=== PATIENT | male | born 1945 | race Caucasian/White ===

== ENCOUNTER 2020-08-20 10:14 | Outpatient (REF) | payer MEDICARE, SELFPAY ==
[2020-08-20 14:05] LABS: MANUAL DIFF FLAG NO
[2020-08-20 14:17] LABS: Eosinophils Absolute Auto 0.1 X10*3/uL (0.0-0.4); Eosinophils Percent Auto 2.9 % (0-4); Hematocrit 45.8 % (42-52); Hemoglobin 14.5 g/dl (14.0-18.0); Imm Gran Abs Auto 0.01 X10*3/uL (0.00-0.03); Imm Gran Pct Auto 0.2 % (0.0-0.4); Lymphocytes Percent Auto 22.7 % (20-40); Mean Corpuscular HGB Conc 31.7 g/dl (31.0-36.0); Mean Corpuscular Hemoglobin 26.9 pg (27.0-33.0); Mean Corpuscular Volume 84.8 fL (80-98); Mean Platelet Volume 11.6 fL (9.4-12.4); Monocytes Absolute Auto 0.5 X10*3/uL (0.1-1.2); Monocytes Percent Auto 10.8 % (2-11); Neutrophils Absolute Auto 2.6 X10*3/uL (2.0-8.3); Neutrophils Percent Auto 62.4 % (45-73); Platelet Count 182 X10*3/uL (160-400); Red Cell Distribution Width 14.1 % (11.0-16.0); White Blood Count 4.2 X10*3/uL (4.8-10.8)
[2020-08-20 14:45] LABS: Alanine Aminotransferase 33 U/L (0-40); Albumin Level 4.3 g/dL (3.5-5.0); Alkaline Phosphatase 82 U/L (39-117); Aspartate Amino Transferase 34 U/L (5-37); Bilirubin Direct 0.3 mg/dL (0.0-0.5); Bilirubin Total 0.7 mg/dL (0.0-1.0); C Reactive Protein 0.06 mg/dL (< or = 0.50); Total Protein 6.7 g/dL (6.5-8.0)
[2020-08-20 15:14] LABS: Erythrocyte Sedimentation Rate 3 MM/HR (0-15)
[2020-08-21 13:21] LABS: Transglutaminase Ab IgG 1 U/mL; Transglutaminase IgA 1 U/mL
[2020-08-21 13:41] LABS: Gliadin Deamidated IgA Ab 9 Units; Gliadin Deamidated IgG Ab 2 Units
[2020-08-21 14:07] LABS: Immunoglobulin A 169 mg/dL (70-320)
[2020-08-27 14:06] LABS: Endomysial IgA Antibody Negative (Negative)
== END 2020-08-20 10:15 | disposition home or self-care (01) ==
LOC: HO.10HDL 10:14
PROVIDERS: Absent Provider Internal Medicine; Visit Provider Internal Medicine
DX: R19.4 Change in bowel habit (principal); R19.7 Diarrhea, unspecified
CPT/HCPCS: 36415; 80076; 82784; 83516; 85025; 85652; 86140; 86255; 86256

== ENCOUNTER 2020-09-09 08:54 | Day surgery (SDC) | payer MEDICARE, SELFPAY ==
[2020-09-04 10:44] VITALS: BMI 31.4
--- NOTE | 2020-09-06 08:19 | P.CONAN_ITS ---
Documented by User: Ericka Nunez 09/06/20 08:20 HPI - Anesthesia Eval Consult details Narrative: 74yo M for Upper Endoscopy and Colonoscopy [facility] Past Medical History Medical History Depression Elevated cholesterol GERD (gastroesophageal reflux disease) History of prostate cancer History of skin cancer HTN (hypertension) Surgical History Surgical History H/O colonoscopy Social History Social History Alcohol intake: former Smoking Status: Former smoker Smoking Quit Date: >10 years Use of substances other than those prescribed or required for medical reasons: No Advance Directives Information Provided: No Meds Allergies Allergy/AdvReac Type Severity Reaction Status Date / Time Penicillins Allergy Intermediate HIVES Verified 09/09/20 10:45 peanut [PEANUT] Allergy Unknown UNKNOWN Verified 09/09/20 10:45 Home Medications Medication Instructions Recorded Confirmed Last Taken Type amlodipine 1 tab PO DAILY 09/04/20 09/04/20 Unknown History atorvastatin 1 tab PO DAILY 09/04/20 09/04/20 Unknown History clonazepam 1 tab PO BID 09/04/20 09/04/20 Unknown History escitalopram oxalate 5 mg PO DAILY 09/04/20 09/04/20 Unknown History finasteride 1 tab PO DAILY 09/04/20 09/04/20 Unknown History fluticasone propionate 1 spray INTRANASAL QAM 09/04/20 09/04/20 Unknown History loratadine 1 tab PO DAILY 09/04/20 09/04/20 Unknown History omeprazole 1 cap PO QAM 09/04/20 09/04/20 Unknown History Exam Exam Date and Time: September 06, 2020 0819 Height,Weight and Vital Signs: Height 5 ft 11 in Weight 102.058 kg Assessment and Plan Assessment Anesthesia Assessment: Chart Reviewed Documented by User: Tomasa Thompson 09/09/20 10:51 [facility] Past Medical History Medical History Depression Elevated cholesterol GERD (gastroesophageal reflux disease) History of prostate cancer History of skin cancer HTN (hypertension) Family History Family history of problems with anesthesia: No Surgical History Surgical History H/O colonoscopy History of Problems with Anesthesia: No Social History Social History Alcohol intake: former Smoking Status: Former smoker Smoking Quit Date: >10 years Use of substances other than those prescribed or required for medical reasons: No Advance Directives Information Provided: No Meds Allergies Allergy/AdvReac Type Severity Reaction Status Date / Time Penicillins Allergy Intermediate HIVES Verified 09/09/20 10:45 peanut [PEANUT] Allergy Unknown UNKNOWN Verified 09/09/20 10:45 Home Medications Medication Instructions Recorded Confirmed Last Taken Type amlodipine 1 tab PO DAILY 09/04/20 09/04/20 Unknown History atorvastatin 1 tab PO DAILY 09/04/20 09/04/20 Unknown History clonazepam 1 tab PO BID 09/04/20 09/04/20 Unknown History escitalopram oxalate 5 mg PO DAILY 09/04/20 09/04/20 Unknown History finasteride 1 tab PO DAILY 09/04/20 09/04/20 Unknown History fluticasone propionate 1 spray INTRANASAL QAM 09/04/20 09/04/20 Unknown History loratadine 1 tab PO DAILY 09/04/20 09/04/20 Unknown History omeprazole 1 cap PO QAM 09/04/20 09/04/20 Unknown History Exam Height,Weight and Vital Signs: Vital Signs Temp Pulse Resp BP Pulse Ox 09/09/20 10:20 97.3 F 79 18 137/74 96 Airway Mallampati Class: II TM Dist: >3cm Neck ROM: Full Partial: Lower Heart: RRR Lungs: CTAB Assessment and Plan Assessment Anesthesia Assessment: Anesthesia Plan Discussed and Chart Reviewed Final Anesthetic Review NPO: Yes ASA Class: II Final Preanesthetic Review: No Changes in Pt Med Stat, Meds/Allgs Chart Reviewed, Consent Obtained/Reviewed and Anes Risks/Benef Reviewed Patient Risk: Low Procedure Risk: Low Assessment/Block/Sedation in SS: Assess/Block/Sedation- Anesthetic Plan Anesthetic Plan: MAC: Disposition: Standard PACU
[2020-09-09 10:20] VITALS: BP 137/74; PULSE 79; RESP 18; TEMP 36.3; O2SAT 96
[2020-09-09] MEDS: Lactated Ringers 1,000 ML 100 ML IVCONT (10:48)
[2020-09-09 11:45] VITALS: BP 90/53; PULSE 61; RESP 14; TEMP 36.2; O2SAT 96
--- NOTE | 2020-09-09 11:47 | PM.OP ---
Brief Operative Note Date of Service: 09/09/20 Pre-op diagnosis: GERD, Diarrhea Post-op diagnosis: other (Hiatal hernia, Gastritis, Diverticulosis, Internal hemorrhoids) Procedure: EGD with biopsies, Colonoscopy to the cecum with biopsies Surgeon: Abdoulaye Ronquillo Anesthesia: MAC Was an [employer] Machine Assembler used for this Procedure?: No Estimated blood loss (mL): 4.0 Pathology: other (A. Descending duodenum B. Gastric antrum C. EG Junction at 36 cm D. Ascending colon E. Descending colon) Condition: stable Disposition: PACU
[2020-09-09 12:00] VITALS: BP 114/64; PULSE 56; RESP 16; TEMP 36.3; O2SAT 97
--- NOTE | 2020-09-09 12:13 | OP_ITS ---
SURGEON: Abdoulaye Ronquillo MD INDICATIONS: The patient presents for evaluation of gastroesophageal reflux, change in bowel habits, and diarrhea. Full consent has been obtained from him for both procedures, including risks of bleeding and perforation. PREOPERATIVE DIAGNOSIS: POSTOPERATIVE DIAGNOSIS: PROCEDURE PERFORMED: Esophagogastroduodenoscopy with biopsies, and colonoscopy to the cecum with biopsy. ESTIMATED BLOOD LOSS: COMPLICATIONS: ANESTHESIA: Monitored anesthesia care. ASSISTANTS: SPECIMENS: PREOPERATIVE DIAGNOSES: Gastroesophageal reflux, change in bowel habits, diarrhea. POSTOPERATIVE DIAGNOSES: Gastroesophageal reflux, change in bowel habits, diarrhea, hiatal hernia, gastritis, rule out celiac disease, rule out microscopic colitis, diverticulosis, and internal hemorrhoids. DESCRIPTION OF PROCEDURE: The patient was placed in the left lateral decubitus position. The Olympus video gastroscope was passed in the posterior oropharynx and upper esophagus under direct vision. The scope was passed slowly into the distal esophagus. The gastroesophageal junction appeared at 36 cm. There was some slight irregularity consistent with reflux and possibly small areas of Carter's mucosa. There was no esophagitis nor any lesions. There was a small to moderate-sized hiatal hernia. The scope was advanced to pylorus and duodenum was cannulated to the descending portion. The duodenum including the bulb appeared normal without mass or ulceration. Biopsies were obtained at the 2nd and 3rd portions of duodenum. The scope was withdrawn back in the stomach. The gastric antrum had some mild areas of gastritis in the pre-pyloric antrum. Biopsies were obtained. There was good peristalsis. There were no erosions or ulceration. The scope was retroflexed visualizing the proximal stomach carefully, which appeared normal, without any sign of mass or ulceration. The scope was straightened out and withdrawn back into the esophagus. The hiatal hernia mucosa appeared normal. Biopsies were obtained at the EG junction at 36 cm. Proximal to this, the esophageal mucosa appeared normal. The scope was withdrawn from the patient. He was turned around for colonoscopy. The digital rectal exam revealed no abnormalities. The Olympus video pediatric colonoscope was entered into the rectum and advanced easily to the cecum. Once in the cecum, I did identify normal-appearing cecal pouch with appendiceal orifice and a normal-appearing ileocecal valve. There was transillumination of light deep in the right lower quadrant. The entire cecum and ileocecal valve appeared normal. The scope was slowly withdrawn assessing all mucosal surfaces carefully. Preparation was excellent. I did not visualize any sign of polyps, colitis, nor angiodysplasia. Biopsies were obtained in the ascending and descending colon. There was a mild amount of sigmoid diverticulosis. In the rectum, scope was retroflexed visualizing some internal hemorrhoids as well as some scattered telangiectasias in the distal rectum consistent with his previous radiation treatments. The scope was straightened out and withdrawn from the patient. He tolerated the procedure well and was returned to the recovery area in stable condition. IMPRESSION: 1. Hiatal hernia, gastroesophageal reflux, rule out Carter's esophagus. 2. Mild gastritis. 3. Rule out celiac disease. 4. Rule out microscopic colitis. 5. Diverticulosis. 6. Internal hemorrhoids. 7. Changes of radiation treatment in distal rectum with associated telangiectasias. PLAN: The results of the biopsies will be checked. He will continue his omeprazole 40 mg daily as that is working better for him than the previous 20 mg dose. He was advised not to use any aspirin and NSAIDs for at least a week. He was advised to use Imodium on a p.r.n. basis for any loose stool. He will see me over the summer for a followup visit. MD MARY Coles/JAN / [id number] MTDD
== END 2020-09-09 12:55 | disposition home or self-care (01) ==
PROVIDERS: PCP Internal Medicine; Visit Provider Internal Medicine
PROC: (CPT 45380; principal; 2020-09-09 10:10)
DX: R19.4 Change in bowel habit (principal); R19.7 Diarrhea, unspecified; K57.30 Diverticulosis of large intestine without perforation or abscess without bleeding; K64.8 Other hemorrhoids; K62.7 Radiation proctitis; K21.9 Gastro-esophageal reflux disease without esophagitis; K29.70 Gastritis, unspecified, without bleeding; K22.70 Barrett's esophagus without dysplasia; K44.9 Diaphragmatic hernia without obstruction or gangrene; I10 Essential (primary) hypertension; Z79.899 Other long term (current) drug therapy; Z85.46 Personal history of malignant neoplasm of prostate; Z85.828 Personal history of other malignant neoplasm of skin; Z92.3 Personal history of irradiation; Z87.891 Personal history of nicotine dependence
CPT/HCPCS: 45380; 43239; 88305; 88342

== ENCOUNTER 2022-04-28 08:34 | Outpatient (REF) | payer MEDICARE, SELFPAY ==
[2022-04-28 08:49] LABS: MANUAL DIFF FLAG NO
[2022-04-28 08:53] LABS: Basophils Absolute Auto 0.1 X10*3/uL (0.0-0.2); Basophils Percent Auto 0.9 % (0-2); Eosinophils Absolute Auto 0.1 X10*3/uL (0.0-0.4); Eosinophils Percent Auto 2.5 % (0-4); Hematocrit 44.6 % (42.0-52.0); Hemoglobin 14.3 g/dl (14.0-18.0); Imm Gran Abs Auto 0.02 X10*3/uL (0.00-0.03); Imm Gran Pct Auto 0.4 % (0.0-0.4); Lymphocytes Absolute Auto 1.4 X10*3/uL (1.2-4.9); Lymphocytes Percent Auto 25.7 % (20-40); Mean Corpuscular HGB Conc 32.1 g/dl (31.0-36.0); Mean Corpuscular Hemoglobin 26.8 pg (27.0-33.0); Mean Corpuscular Volume 83.7 fL (80.0-98.0); Mean Platelet Volume 9.8 fL (9.4-12.4); Monocytes Absolute Auto 0.6 X10*3/uL (0.1-1.2); Monocytes Percent Auto 10.2 % (2-11); Neutrophils Absolute Auto 3.4 x10*3/uL (2.0-8.3); Neutrophils Percent Auto 60.3 % (45-73); Platelet Count 193 X10*3/uL (160-400); Red Blood Count 5.33 X10*6/uL (4.60-5.80); White Blood Count 5.6 X10*3/uL (4.8-10.8)
[2022-04-28 09:37] LABS: Alanine Aminotransferase 45 U/L (0-40); Alkaline Phosphatase 82 U/L (39-117); Anion Gap 8 (12-20); Aspartate Amino Transferase 36 U/L (5-37); Bilirubin Total 0.7 mg/dL (0.0-1.0); Blood Urea Nitrogen 19 mg/dL (9-16); Calcium 9.4 mg/dL (8.4-10.2); Carbon Dioxide 27 mmol/L (22-29); Chloride 109 mmol/L (96-108); Cholesterol 164 mg/dL; Estimated Glomerular Filt Rate 55; Glucose Random 105 mg/dL (60-115); HDL Cholesterol 42 mg/dL; LDL Cholesterol Calculated 99 mg/dl; Potassium 4.2 mmol/L (3.3-5.1); Sodium 140 mmol/L (135-145); Total Protein 6.3 g/dL (6.5-8.0); Triglycerides 117 mg/dL
[2022-04-28 09:54] LABS: Free T4 (Free Thyroxine) 1.05 ng/dL (0.71-1.85); PSA,Total (Free>4and<10) 1.56 ng/mL (0.00-4.00); Thyroid Stimulating Hormone 3.76 uIU/mL (0.32-4.0)
[2022-04-28 10:07] LABS: Vitamin B12 576 pg/mL (200-900)
== END 2022-04-28 08:35 | disposition home or self-care (01) ==
LOC: HO.LAB 08:34
PROVIDERS: PCP Internal Medicine; Visit Provider Internal Medicine
DX: E78.00 Pure hypercholesterolemia, unspecified (principal); K22.70 Barrett's esophagus without dysplasia; R79.89 Other specified abnormal findings of blood chemistry; Z12.5 Encounter for screening for malignant neoplasm of prostate; Z85.46 Personal history of malignant neoplasm of prostate
CPT/HCPCS: 36415; 80053; 80061; 82607; 82746; 84153; 84439; 84443; 85025

== ENCOUNTER 2022-04-30 09:58 | Outpatient (REF) | payer MEDICARE, SELFPAY ==
[2022-04-30 11:01] LABS: Alanine Aminotransferase 42 U/L (0-40); Albumin Level 4.3 g/dL (3.5-5.0); Alkaline Phosphatase 86 U/L (39-117); Aspartate Amino Transferase 33 U/L (5-37); Bilirubin Direct 0.3 mg/dL (0.0-0.5); Bilirubin Total 0.7 mg/dL (0.0-1.0); Total Protein 6.8 g/dL (6.5-8.0)
[2022-05-01 09:36] LABS: HBc Num1 3.01 S/CO (0.00-0.79); HBsAGNum1 0.32 S/CO (0.00-0.99); Hepatitis B Surface Antigen Negative (Negative); ~HepC Num1 0.14 S/CO (0.00-0.79); ~Hepatitis B Surface Antibody REACTIVE (Nonreactive); ~Hepatitis C Antibody Nonreactive (Nonreactive)
[2022-05-01 13:36] LABS: HBc Num2 3.04 S/CO; HBc Num3 2.83 S/CO
[2022-05-01 13:37] LABS: Hepatitis B Core Antibody Reactive (Nonreactive)
[2022-05-02 20:54] LABS: Hepatitis B Core Antibody IgM NON-REACTIVE (NON-REACTIVE)
== END 2022-04-30 09:59 | disposition home or self-care (01) ==
LOC: HO.LAB 09:58
PROVIDERS: PCP Internal Medicine; Visit Provider Internal Medicine
DX: R79.89 Other specified abnormal findings of blood chemistry (principal)
CPT/HCPCS: 36415; 80076; 86704; 86705; 86706; 86803; 87340

== ENCOUNTER 2022-05-14 08:57 | Outpatient (REF) | payer MEDICARE, SELFPAY ==
--- NOTE | ~2022-05-14 | US_ITS ---
EXAMINATION: US ABDOMEN LIMITED CLINICAL INFORMATION: Other specified abnormal findings of blood chemistry. COMPARISON: None TECHNIQUE: Real-time imaging of the right upper quadrant abdominal viscera. Technically extremely limited study secondary to body habitus. FINDINGS: PANCREAS: Normal. LIVER: Normal. The liver is normal in size. The liver contour is normal. Parenchymal echogenicity is normal. No focal hepatic lesion. There is no intrahepatic biliary duct dilatation seen. GALLBLADDER: Normal. The gallbladder is physiologically distended without evidence of stones, sludge, polyps, wall thickening or pericholecystic fluid. COMMON BILE DUCT: Poorly visualized due to body habitus. The estimated caliber is 5 mm. RIGHT KIDNEY: Normal. No hydronephrosis. No renal calculi or focal parenchymal lesions. The kidney measures 10.2 cm in maximum dimension. FREE FLUID: None. US/US abdomen limited IMPRESSION: Unremarkable examination, technically limited as detailed.
== END 2022-05-14 08:58 | disposition home or self-care (01) ==
LOC: HO.US 08:57
PROVIDERS: PCP Internal Medicine; Visit Provider Internal Medicine
DX: R79.89 Other specified abnormal findings of blood chemistry (principal); R74.01 Elevation of levels of liver transaminase levels
CPT/HCPCS: 76705

== ENCOUNTER 2022-06-30 15:33 | Outpatient (REF) | payer MEDICARE, SELFPAY ==
[2022-06-30 16:41] LABS: Estimated Average Glucose 126 mg/dL
[2022-06-30 17:02] LABS: Anion Gap 16 (12-20); Blood Urea Nitrogen 25 mg/dL (9-16); Calcium 8.9 mg/dL (8.4-10.2); Carbon Dioxide 23 mmol/L (22-29); Chloride 108 mmol/L (96-108); Estimated Glomerular Filt Rate 56; Glucose Random 102 mg/dL (60-115); Potassium 4.5 mmol/L (3.3-5.1); Sodium 142 mmol/L (135-145)
== END 2022-06-30 15:34 | disposition home or self-care (01) ==
LOC: HO.LAB 15:33
PROVIDERS: PCP Internal Medicine; Visit Provider Internal Medicine
DX: R73.02 Impaired glucose tolerance (oral) (principal); I10 Essential (primary) hypertension
CPT/HCPCS: 36415; 80048; 83036

== ENCOUNTER 2022-11-09 10:17 | Outpatient (AMB) | payer MEDICARE, SELFPAY ==
[2022-11-09 10:19] VITALS: BP 136/80; PULSE 88; O2SAT 96; BMI 32.1
--- NOTE | 2022-11-09 10:19 | AM.OFFVISMDC ---
Intake Vital Signs 11/09/22 10:19 Height 5 ft 11 in Weight 230 lb BMI 32.1 BP 136/80 Blood Pressure Location Lt brachial Position Sitting Pulse 88 Pulse Source Pulse Oximeter Temp Source Skin Pulse Oximetry (%) 96 Oxygen Delivery Method Room Air Intake Visit Reasons: [facility] Intake Note: Patient is here for an Annual Wellness Visit. Location And Measurement Technician Required: No Allergies Penicillins Allergy (Intermediate, Verified 11/09/22 10:19) HIVES peanut [PEANUT] Allergy (Unknown, Verified 11/09/22 10:19) UNKNOWN Medication List - Last Reconciled 11/09/22 by Joanne Bejarano MD amlodipine 5 mg PO DAILY antiarthritic combination no.2 (glucosamine-chondroitin) mg PO atorvastatin 20 mg PO DAILY buspirone 5 mg PO DAILY clonazepam 1 mg PO DAILY PRN dextroamphetamine-amphetamine 5 mg ER (Adderall XR) 5 mg PO DAILY escitalopram oxalate 5 mg PO BID finasteride 1 tab PO DAILY fluticasone propionate 50 mcg/actuation 1 spray intranasal QAM gabapentin 300 mg PO BID lisinopril 5 mg PO DAILY 90 days loratadine 1 tab PO DAILY lysine (L-Lysine) 500 mg PO DAILY omeprazole 1 cap PO QAM Fall Risk Assessment Fall risk assessment: No Falls in past year Date Fall Risk Assessed: 11/09/22 HPI [facility] HPI Details 77-year-old obese male with impaired glucose tolerance generalized anxiety disorder hypercholesterolemia Carter's esophagus hypertension last seen in June 2022. Patient is here for an and will well visit. Colonoscopy is up-to-date August 2020. states moving BM a lot- states-having bowel movemement [facility] Medical History (Updated 11/09/22 @ 11:11 by Joanne Bejarano MD) Depression Elevated cholesterol GERD (gastroesophageal reflux disease) History of prostate cancer History of skin cancer HTN (hypertension) Surgical History H/O colonoscopy History of cataract surgery Family History (Updated 07/02/22 @ 15:06 by Kavita Joseph CMA) Mother No problems noted. Father Tuberculosis Brother No problems noted. Sister No problems noted. Son No problems noted. Son No problems noted. Social History (Updated 10/31/21 @ 11:43 by Joanne Bejarano MD) Housing: House Alcohol intake: former Patient Tobacco Use Status: Former Tobacco user Tobacco use type: Cigarette Years Smoked: quit 1999 e-Cigarette/Vaping Use: Never Used Second Hand Smoke Exposure: No Current occupational status: retired Cognitive needs: No Hearing needs: No Vision needs: Yes Questionnaire Medicare Wellness Checkup What [age] your age?: 70-79 (77) What gender do you identify with?: male During the past 4 weeks, how much have you been bothered by emotional problems such as feeling anxious, depressed, irritable, sad or downhearted, and blue?: moderately (anxious ) During the past 4 weeks, has your physical & emotional health limited your social activities with family, friends, neighbors, or groups?: not at all During the past 4 weeks, how much bodily pain have you generally had?: no pain During the past 4 weeks, was someone available to help you if you needed & wanted help?: yes, as much as I wanted During the past 4 weeks, what was the hardest physical activity you could do for at least 2 minutes?: heavy Can you get to places out of walking distance without help? (For eg., can you travel alone on buses, taxis or drive your car?): Yes Can you go shopping for groceries or clothes without someone's help?: Yes Can you prepare your own meals?: Yes Can you do your housework without help?: Yes Because of any health problems, do you need the help of another person with your personal care needs such as eating, bathing, dressing or getting around the house?: No Can you handle your own money without help?: Yes During the past 4 weeks, how would you rate your health in general?: good During the past 4 weeks how have things been going for you?: good & bad parts about equal Are you having difficulties driving your car?: no Do you always fasten your seat belt when you are in a car?: yes, usually During past 4 weeks, have you been bothered by the following: never: Falling or dizzy when standing up, Sexual problems?, Trouble eating well?, Teeth or denture problems? and Problems using the telephone? and sometimes: Tiredness or fatigue? Have you fallen 2 or more times in the past year?: No Are you afraid of falling?: No Are you a smoker?: no During the past 4 weeks, how many drinks of wine, beer, or other alcoholic beverages did you have?: no alcohol at all Do you exercise for about 20 minutes 3 or more times a week?: yes, most of the time Have you been given information to help with the following?: no: Hazards in your house that might hurt you? and no: Keeping track of your medications? How often do you have trouble taking medicines the way you have been told to take them?: I always take medicine as prescribed How confident are you that you can control & manage most of your health problems?: somewhat confident What is your race?: White PHQ-9 Over the last 2 weeks, how often have you been bothered by any of the following problems? 1. Little interest or pleasure in doing things: not at all 2. Feeling down, depressed, or hopeless: several days 3. Trouble falling or staying asleep, or sleeping too much: several days 4. Feeling tired or having little energy: several days 5. Poor appetite or overeating: several days 6. Feeling bad about yourself - or that you are a failure or have let yourself or your family down: several days 7. Trouble concentrating on things, such as reading the newspaper or watching television: several days 8. Moving or speaking so slowly that other people could have noticed. Or the opposite - being so fidgety or restless that you have been moving around a lot more than usual: not at all 9. Thoughts that you would be better off or of hurting yourself in some way: not at all Total score: 6 Depression Screening Interpretation: Positive Source: Developed by Drs. Abdoulaye White, Mone Robles, Rico Holguin and colleagues, with an educational rasta from [employer]. RONNIE-7 AMB Questionnaire RONNIE-7 Date RONNIE - 7 assessed: 11/09/22 Feeling nervous, anxious, or on edge: 1 = Several days Not being able to stop or control worryin = Several days Worrying too much about different things: 1 = Several days Trouble relaxin = Several days Being so restless that it is hard to sit still: 1 = Several days Becoming easily annoyed or irritable: 1 = Several days Feeling afraid as if something awful might happen: 1 = Several days Total RONNIE-7 score (0-4 normal; 5-9 mild; 10-14 moderate; 15-21 severe): 7 Source: Developed by Drs. Abdoulaye White, Mone Robles, Rico Holguin and colleagues, with an educational rasta from [employer]. AUDIT C Alcohol Use Questionnaire (AUDIT-C) 1. How often do you have a drink containing alcohol?: Never 3. How often do you have six or more drinks on one occasion?: Never Total Score: 0 Thrive Questionnaire Date Thrive assessed: 05/04/22 Review of Systems Const Denies poor appetite and Denies weakness Eyes Denies no additional complaints ENT Reports Normal hearing present, Denies dizziness, Denies nasal congestion, Denies tinnitus and Denies sore throat Card Denies chest pain, Denies syncope, Denies rapid heart rate and Denies dyspnea Resp Denies cough and Denies dyspnea GI Denies change in stool character, Reports constipation, Denies diarrhea, Denies nausea and Denies vomiting Denies dysuria and Denies urinary frequency Neuro Reports Normal hearing present, Denies confusion, Denies dizziness, Denies syncope and Denies weakness Psych Denies confusion Physical Exam Vital Signs: Last Vital Signs Pulse 88 11/09/22 10:19 BP 136/80 11/09/22 10:19 Pulse Ox 96 11/09/22 10:19 Oxygen Delivery Method Room Air 11/09/22 10:19 BMI result Body Mass Index 32.1 Const General: No confusion Orientation/consciousness: No confusion HEENT Head: Yes normocephalic Ears: external ears normal and TM's normal bilaterally Face and sinus: Yes normal facial exam Mouth: moist mucous membranes Throat: Yes tonsils normal Eyes Conjunctivae: conjunctivae normal Pupils: Equal, round and reactive pupils present and Pupil accommodation reflex normal Direct Ophthalmoscopy: normal light reflex Neck Neck: No lymphadenopathy Thyroid: Thyroid normal Chest Chest palpation & inspection: normal inspection of the chest Resp Effort & Inspection: normal respiratory effort and no audible wheezes Auscultation: clear to auscultation bilaterally, no crackles, no wheezes and lung sounds not diminished Cardio Rate: regular rate Rhythm: regular rhythm Peripheral pulses: radial pulses present and dorsalis pedis present GI Other: decline rectal exam Palpation (GI): no masses Auscultation: normal bowel sounds and normoactive bowel sounds Rectal Exam - Male: Yes deferred Skin General skin exam: no rashes or lesions noted Rashes: no rashes Neuro General: No confusion Cranial nerves: Yes Equal, round and reactive pupils present and Yes Normal hearing present Cognition (Neuro): normal cognition Gait exam (Neuro): Normal gait present Motor exam (neuro): 5/5 motor strength present throughout Deep tendon reflexes (DTR's): Right brachioradialis reflex intensity grade: 2+, Left brachioradialis reflex intensity grade: 2+, Right patellar reflex intensity grade: 2+ and Left patellar reflex intensity grade: 2+ Extrem General: No edema Assessment & Plan Assessment & Plan (1) Medicare annual wellness visit, subsequent: Code(s): Z00.00 - Encounter for general adult medical examination without abnormal findings (2) Elevated cholesterol: Code(s): E78.00 - Pure hypercholesterolemia, unspecified Plan: Avoid fried foods, chicken skin, eggs, butter margarine, pastries and meat. Be it pork or beef they have a lot of cholesterol LDL goal of less than 130 patient is on atorvastatin 20 mg once a day (3) Barretts esophagus: Code(s): K22.70 - 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 Plan: Avoid the foods that causes that usually spicy foods, tomato products, juices, coffee, soda and foods that your sensitive to. After eating do not lie down, allow 3-4 hours before in lie down. And keep the head of bed above 30 degrees to avoid the acid from going up. Patient is on omeprazole (4) Hypertension: Code(s): I10 - Essential (primary) hypertension Plan: Continue with blood pressure medication. Decrease salt intake and exercise patient is on lisinopril 5 mg once a day amlodipine 5 mg once a day (5) Generalized anxiety disorder: Comment: Mariposa Hooker Code(s): F41.1 - Generalized anxiety disorder Plan: Continue with counseling and therapy (6) History of prostate cancer: Comment: 2016-w/radiation, Dr. Varela Code(s): Z85.46 - Personal history of malignant neoplasm of prostate Plan: Continue with finasteride follow-up with urology (7) Impaired glucose tolerance: Code(s): R73.02 - Impaired glucose tolerance (oral) Plan: Decrease the amount of carbohydrate intake, pasta, bread, rice and potatoes are all sugar and that is aside from all the sweet stuff, remember that fruits are good but they are Sweet also. (8) Recent change in frequency of bowel movements: Code(s): R19.4 - Change in bowel habit (9) Low back pain: Code(s): M54.50 - Low back pain, unspecified Orders: Referrals Gastroenterology Referral R19.4 - Change in bowel habit Medications: New prednisone 4 tabs QD x 2 days then 3 tabs QD x 2 days then 2 tabs Qd x 2 days then 1 tab QD x 2 days PO daily; 20 tabs 0RF J45.909 - Unspecified asthma, uncomplicated, M54.50 - Low back pain, unspecified Quality Reporting (2019) Fall Risk Screening ([facility] 139) Last assessed Fall Risk: 11/09/22 Fall risk assessment: No Falls in past year Depression/Bipolar (159/160/161/177) PHQ-9: Total score: 6 Coding Level of Care Code Medicare Subsequent (G0439) Diagnoses Medicare annual wellness visit, subsequent Z00.00 Elevated cholesterol E78.00 Barretts esophagus K22.70 Hypertension I10 Generalized anxiety disorder F41.1 History of prostate cancer Z85.46 Impaired glucose tolerance R73.02 Recent change in frequency of bowel movements R19.4 Low back pain M54.50
== END 2022-11-09 11:26 | disposition home or self-care (01) ==
PROVIDERS: Visit Provider Internal Medicine
DX: Z00.00 Encounter for general adult medical examination without abnormal findings (principal); I10 Essential (primary) hypertension; K22.70 Barrett's esophagus without dysplasia; Z85.46 Personal history of malignant neoplasm of prostate; E78.00 Pure hypercholesterolemia, unspecified; F41.1 Generalized anxiety disorder; R73.02 Impaired glucose tolerance (oral); R19.4 Change in bowel habit; M54.50 Low back pain, unspecified
CPT/HCPCS: G0439

== ENCOUNTER 2023-05-17 10:35 | Outpatient (AMB) | payer MEDICARE, SELFPAY ==
[2023-05-17 10:36] VITALS: BP 138/70; PULSE 97; O2SAT 97; BMI 32.5
--- NOTE | 2023-05-17 10:37 | A.OFFPC_ITS ---
Vital Signs 05/17/23 10:36 Height 5 ft 11 in Weight 233 lb BMI 32.5 BP 138/70 Blood Pressure Location Lt brachial Position Sitting Pulse 97 Pulse Source Pulse Oximeter Pulse Oximetry (%) 97 Oxygen Delivery Method Room Air Intake Visit Reasons: Hypertension Pharmaceutical Scientist Required: No Allergies Penicillins Allergy (Intermediate, Verified 05/17/23 10:36) HIVES peanut [PEANUT] Allergy (Unknown, Verified 05/17/23 10:36) UNKNOWN Tobacco use date assessed: 05/17/23 Fall risk assessment: No Falls in past year Last assessed Fall Risk: 05/17/23 Dental Screening Dental Screen Date: 05/17/23 HPI Hypertension HPI Details 77-year-old obese male with hypercholest erolemia Carter's esophagus hypertension generalized anxiety disorder history of prostate cancer impaired glucose tolerance last seen in October 2022 colonoscopy is up-to-date August 2020 received lab works from August 2021 showing a normal hemoglobin A1c TSH urinalysis blood count mildly elevated blood sugar normal renal function normal electrolytes liver function with an LDL of [address] [facility] [address] Malik ARANA L knee injection [facility] Medical History (Updated 05/17/23 @ 11:10 by Joanne Bejarano MD) GERD (gastroesophageal reflux disease) History of skin cancer Depression Elevated cholesterol HTN (hypertension) History of prostate cancer Surgical History H/O colonoscopy History of cataract surgery Family History (Updated 07/02/22 @ 15:06 by Kavita Joseph CMA) Mother No problems noted. Father Tuberculosis Brother No problems noted. Sister No problems noted. Son No problems noted. Son No problems noted. Social History (Updated 10/31/21 @ 11:43 by Joanne Bejarano MD) Housing: House Alcohol intake: former Patient Tobacco Use Status: Former Tobacco user Tobacco use type: Cigarette Years Smoked: quit 1999 e-Cigarette/Vaping Use: Never Used Second Hand Smoke Exposure: No Current occupational status: retired Cognitive needs: No Hearing needs: No Vision needs: Yes Questionnaire Thrive Questionnaire Date Thrive assessed: 05/17/23 AUDIT C Alcohol Use Questionnaire (AUDIT-C) 1. How often do you have a drink containing alcohol?: Never 3. How often do you have six or more drinks on one occasion?: Never Total Score: 0 RONNIE-7 AMB Questionnaire RONNIE-7 Date RONNIE - 7 assessed: 11/09/22 Source: Developed by DrsIsabell White, Mone Robles, Rico Holguin and colleagues, with an educational rasta from [employer]. Physical exam (Primary Care) Vital Signs: Last Vital Signs Pulse 97 05/17/23 10:36 BP 138/70 05/17/23 10:36 Pulse Ox 97 05/17/23 10:36 Oxygen Delivery Method Room Air 05/17/23 10:36 BMI result Body Mass Index 32.5 Tobacco/Smoking Status: Tobacco use Status Tobacco use date assessed 05/17/23 05/17/23 10:42 Patient Tobacco Use Status Former Tobacco user 05/17/23 10:42 Tobacco use type Cigarette 05/17/23 10:42 e-Cigarette/Vaping Use Never Used 05/17/23 10:42 Thrive Assessment: Date of Thrive Assessment Date Thrive assessed 05/17/23 05/17/23 10:42 Const General: alert; No acute distress Eyes Conjunctivae: conjunctivae normal Resp Auscultation: clear to auscultation bilaterally Cardio Rate: regular rate Rhythm: regular rhythm GI Inspection: Yes normal to inspection Extrem General: Yes normal to inspection and No edema Assessment and Plan Assessment & Plan (1) Hypertension: Code(s): I10 - Essential (primary) hypertension Plan: Continue with blood pressure medication. Decrease salt intake and exercise patient takes amlodipine 5 mg once a day lisinopril 5 mg once a day (2) Barretts esophagus: Code(s): K22.70 - 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 Plan: Avoid the foods that causes that usually spicy foods, tomato products, juices, coffee, soda and foods that your sensitive to. After eating do not lie down, allow 3-4 hours before in lie down. And keep the head of bed above 30 degrees to avoid the acid from going up. On omeprazole 20 mg once a day EGD 05/2023 Dr. Gonzalez (3) Elevated cholesterol: Code(s): E78.00 - Pure hypercholesterolemia, unspecified Plan: Avoid fried foods, chicken skin, eggs, butter margarine, pastries and meat. Be it pork or beef they have a lot of cholesterol LDL goal of less than 130 and triglyceride of less than 150. Patient on atorvastatin 20 mg once a day (4) Generalized anxiety disorder: Comment: Mariposa Hooker Code(s): F41.1 - Generalized anxiety disorder Plan: Continue with counseling and therapy (5) History of prostate cancer: Comment: 2016-w/radiation, Dr. Varela Code(s): Z85.46 - Personal history of malignant neoplasm of prostate Plan: Patient follows up with urology on finasteride (6) Impaired glucose tolerance: Code(s): R73.02 - Impaired glucose tolerance (oral) Plan: Decrease the amount of carbohydrate intake, pasta, bread, rice and potatoes are all sugar and that is aside from all the sweet stuff, remember that fruits are good but they are Sweet also. (7) Post-nasal drip: Code(s): R09.82 - Postnasal drip (8) Left knee pain: Code(s): M25.562 - Pain in left knee Plan: seeing YASMEEN had injections done gel shots. Orders: Orders Complete Blood Count Auto Diff Today K22.70 - 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 Comprehensive Met. Panel Today K22.70 - 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 Free T4 (Free Thyroxine) Today K22.70 - 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 Lipid Panel Today E78.00 - Pure hypercholesterolemia, unspecified, K22.70 - 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 Hemoglobin A1c Today H61.23 - Impacted cerumen, bilateral Thyroid Stimulating Hormone Today K22.70 - 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 Vitamin B12 and Folate Today K22.70 - 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 Coding Level of Care Code Est Pt Level 4 (27371) Diagnoses Hypertension I10 Barretts esophagus K22.70 Elevated cholesterol E78.00 Generalized anxiety disorder F41.1 History of prostate cancer Z85.46 Impaired glucose tolerance R73.02 Post-nasal drip R09.82 Left knee pain M25.562
== END 2023-05-17 11:23 | disposition home or self-care (01) ==
PROVIDERS: PCP Internal Medicine; Visit Provider Internal Medicine
DX: I10 Essential (primary) hypertension (principal); K22.70 Barrett's esophagus without dysplasia; E78.00 Pure hypercholesterolemia, unspecified; F41.1 Generalized anxiety disorder; Z85.46 Personal history of malignant neoplasm of prostate; R73.02 Impaired glucose tolerance (oral); R09.82 Postnasal drip; M25.562 Pain in left knee
CPT/HCPCS: 99214

== ENCOUNTER 2023-05-18 11:37 | Outpatient (REF) | payer MEDICARE, SELFPAY ==
[2023-05-18 12:26] LABS: MANUAL DIFF FLAG NO
[2023-05-18 12:31] LABS: Basophils Percent Auto 0.6 % (0-2); Eosinophils Absolute Auto 0.2 X10*3/uL (0.0-0.4); Eosinophils Percent Auto 3.3 % (0-4); Hematocrit 44.5 % (42.0-52.0); Hemoglobin 14.3 g/dl (14.0-18.0); Imm Gran Abs Auto 0.02 X10*3/uL (0.00-0.03); Imm Gran Pct Auto 0.4 % (0.0-0.4); Lymphocytes Absolute Auto 1.1 X10*3/uL (1.2-4.9); Lymphocytes Percent Auto 23.7 % (20-40); Mean Corpuscular HGB Conc 32.1 g/dl (31.0-36.0); Monocytes Absolute Auto 0.6 X10*3/uL (0.1-1.2); Monocytes Percent Auto 12.9 % (2-11); Neutrophils Absolute Auto 2.9 x10*3/uL (2.0-8.3); Neutrophils Percent Auto 59.1 % (45-73); Platelet Count 170 X10*3/uL (160-400); White Blood Count 4.8 X10*3/uL (4.8-10.8)
[2023-05-18 12:41] LABS: Estimated Average Glucose 120 mg/dL; Hemoglobin A1c % 5.8 % (<6.0)
[2023-05-18 13:36] LABS: Alanine Aminotransferase 25 U/L (0-40); Alkaline Phosphatase 77 U/L (39-117); Anion Gap 12 (12-20); Aspartate Amino Transferase 27 U/L (5-37); Bilirubin Total 0.7 mg/dL (0.0-1.0); Blood Urea Nitrogen 24 mg/dL (9-16); Calcium 10.1 mg/dL (8.4-10.2); Carbon Dioxide 26 mmol/L (22-29); Chloride 108 mmol/L (96-108); Cholesterol 159 mg/dL (<200); Estimated Glomerular Filt Rate 52; Glucose Random 103 mg/dL (60-115); HDL Cholesterol 44 mg/dL (>40); LDL Cholesterol Calculated 95 mg/dL (<100); Potassium 4.5 mmol/L (3.3-5.1); Sodium 141 mmol/L (135-145); Total Protein 6.9 g/dL (6.5-8.0); Triglycerides 102 mg/dL (<150)
[2023-05-18 13:51] LABS: Free T4 (Free Thyroxine) 0.99 ng/dL (0.71-1.85); Thyroid Stimulating Hormone 2.25 uIU/mL (0.32-4.0)
[2023-05-18 14:12] LABS: Folate 10.5 ng/mL (> or = 4.0); Vitamin B12 521 pg/mL (200-900)
== END 2023-05-18 11:38 | disposition home or self-care (01) ==
LOC: HO.LAB 11:37
PROVIDERS: PCP Internal Medicine; Visit Provider Internal Medicine
DX: K22.70 Barrett's esophagus without dysplasia (principal); H61.23 Impacted cerumen, bilateral; E78.00 Pure hypercholesterolemia, unspecified
CPT/HCPCS: 36415; 80053; 80061; 82607; 82746; 83036; 84439; 84443; 85025

== ENCOUNTER 2023-06-21 10:07 | Day surgery (SDC) | payer MEDICARE, SELFPAY ==
--- NOTE | 2023-06-18 10:33 | P.CONAN_ITS ---
Documented by User: Ericka Nunez NP 06/18/23 10:33 HPI - Anesthesia Eval Consult details Narrative: 77yo M for Upper Endoscopy PMF Active Problems Active Problems: All Active Problems (Updated 05/17/23 @ 11:10 by Joanne Bejarano MD) Left knee pain (Acute) Post-nasal drip (Acute) Low back pain (Acute) Recent change in frequency of bowel movements (Acute) Medicare annual wellness visit, subsequent (Acute) LFT elevation (Acute) Impaired glucose tolerance (Acute) Impacted cerumen of both ears (Acute) Medicare annual wellness visit, initial (Acute) Knee osteoarthritis (Acute) History of prostate cancer (Acute) Generalized anxiety disorder (Acute) Elevated cholesterol (Acute) Barretts esophagus (Acute) GERD (gastroesophageal reflux disease) (Acute) Hypertension (Acute) Past Medical History Medical History (Updated 05/17/23 @ 11:10 by Joanne Bejarano MD) GERD (gastroesophageal reflux disease) History of skin cancer Depression Elevated cholesterol HTN (hypertension) History of prostate cancer Family History Family History (Updated 07/02/22 @ 15:06 by Kavita Joseph [facility]) Mother No problems noted. Father Tuberculosis Brother No problems noted. Sister No problems noted. Son No problems noted. Son No problems noted. Family history of problems with anesthesia: No Surgical History Surgical History H/O colonoscopy History of cataract surgery History of Problems with Anesthesia: No Social History Social History (Updated 10/31/21 @ 11:43 by Joanne Bejarano MD) Housing: House Alcohol intake: former Patient Tobacco Use Status: Former Tobacco user Tobacco use type: Cigarette Years Smoked: quit 1999 e-Cigarette/Vaping Use: Never Used Second Hand Smoke Exposure: No Are you DNR?: No Advance Directives: No Advance Directives Information Provided: Yes Nutrition Risks: No Nutritional Risk Current occupational status: retired Cognitive needs: No Hearing needs: No Vision needs: Yes Meds Allergies Allergy/AdvReac Type Severity Reaction Status Date / Time Penicillins Allergy Intermediate HIVES Verified 05/17/23 10:36 peanut [PEANUT] Allergy Unknown UNKNOWN Verified 05/17/23 10:36 Home Medications Medication Instructions Recorded Confirmed Last Taken Type finasteride 5 mg tablet 1 tab PO DAILY 09/04/20 05/17/23 Unknown History fluticasone propionate 50 1 spray intranasal QAM 09/04/20 05/17/23 Unknown History mcg/actuation nasal spray,suspension loratadine 10 mg tablet 1 tab PO DAILY 09/04/20 05/17/23 Unknown History omeprazole 40 mg capsule,delayed 1 cap PO QAM 09/04/20 05/17/23 Unknown History release escitalopram oxalate 5 mg tablet 5 mg PO BID 07/29/21 05/17/23 Unknown History gabapentin 300 mg capsule 300 mg PO BID 07/29/21 05/17/23 Unknown History lysine 500 mg tablet (L-Lysine) 500 mg PO DAILY 07/29/21 05/17/23 Unknown History amlodipine 5 mg tablet 5 mg PO DAILY 10/31/21 06/21/23 06/21/23 History clonazepam 1 mg tablet 1 mg PO DAILY PRN anxiety 10/31/21 05/17/23 Unknown History atorvastatin 20 mg tablet 20 mg PO DAILY 05/04/22 05/17/23 Unknown History antiarthritic combination no.2 900 mg PO 11/09/22 05/17/23 Unknown History mg tablet (glucosamine-chondroitin) Assessment and Plan Assessment Anesthesia Assessment: Chart Reviewed Final Anesthetic Review Family History of Problems with Anesthesia: No History of Problems with Anesthesia: No Documented by User: Jose Sommer MD 06/21/23 10:42 [facility] Past Medical History Medical History (Updated 05/17/23 @ 11:10 by Joanne Bejarano MD) GERD (gastroesophageal reflux disease) History of skin cancer Depression Elevated cholesterol HTN (hypertension) History of prostate cancer Family History Family History (Updated 07/02/22 @ 15:06 by Kavita Joseph CMA) Mother No problems noted. Father Tuberculosis Brother No problems noted. Sister No problems noted. Son No problems noted. Son No problems noted. Surgical History Surgical History H/O colonoscopy History of cataract surgery History of Problems with Anesthesia: No Social History Social History (Updated 10/31/21 @ 11:43 by Joanne Bejarano MD) Housing: House Alcohol intake: former Patient Tobacco Use Status: Former Tobacco user Tobacco use type: Cigarette Years Smoked: quit 1999 e-Cigarette/Vaping Use: Never Used Second Hand Smoke Exposure: No Are you DNR?: No Advance Directives: No Advance Directives Information Provided: Yes Nutrition Risks: No Nutritional Risk Current occupational status: retired Cognitive needs: No Hearing needs: No Vision needs: Yes Meds Allergies Allergy/AdvReac Type Severity Reaction Status Date / Time Penicillins Allergy Intermediate HIVES Verified 05/17/23 10:36 peanut [PEANUT] Allergy Unknown UNKNOWN Verified 05/17/23 10:36 Home Medications Medication Instructions Recorded Confirmed Last Taken Type finasteride 5 mg tablet 1 tab PO DAILY 09/04/20 05/17/23 Unknown History fluticasone propionate 50 1 spray intranasal QAM 09/04/20 05/17/23 Unknown History mcg/actuation nasal spray,suspension loratadine 10 mg tablet 1 tab PO DAILY 09/04/20 05/17/23 Unknown History omeprazole 40 mg capsule,delayed 1 cap PO QAM 09/04/20 05/17/23 Unknown History release escitalopram oxalate 5 mg tablet 5 mg PO BID 07/29/21 05/17/23 Unknown History gabapentin 300 mg capsule 300 mg PO BID 07/29/21 05/17/23 Unknown History lysine 500 mg tablet (L-Lysine) 500 mg PO DAILY 07/29/21 05/17/23 Unknown History amlodipine 5 mg tablet 5 mg PO DAILY 10/31/21 06/21/23 06/21/23 History clonazepam 1 mg tablet 1 mg PO DAILY PRN anxiety 10/31/21 05/17/23 Unknown History atorvastatin 20 mg tablet 20 mg PO DAILY 05/04/22 05/17/23 Unknown History antiarthritic combination no.2 900 mg PO 11/09/22 05/17/23 Unknown History mg tablet (glucosamine-chondroitin) Exam Airway Mallampati Class: II TM Dist: >3cm Partial: Lower Loose/Missing/Broken Teeth: No Heart: rrr Lungs: cta b/l Assessment and Plan Assessment Anesthesia Assessment: Anesthesia Plan Discussed Final Anesthetic Review History of Problems with Anesthesia: No NPO: Yes ASA Class: II and III Final Preanesthetic Review: No Changes in Pt Med Stat, Meds/Allgs Chart Reviewed, Consent Obtained/Reviewed and Anes Risks/Benef Reviewed Patient Risk: Intermediate Procedure Risk: Intermediate Anesthetic Plan Anesthetic Plan: MAC: Disposition: Standard PACU
[2023-06-21 10:16] VITALS: BMI 32.8
[2023-06-21] MEDS: Lactated Ringers 1,000 ML 100 ML IVCONT (10:25)
[2023-06-21 10:37] VITALS: BP 157/94; PULSE 83; RESP 18; TEMP 36.6; O2SAT 96
[2023-06-21 11:06] VITALS: BP 117/68; PULSE 74; RESP 14; TEMP 36.3; O2SAT 99
--- NOTE | 2023-06-21 11:07 | PM.OP ---
Brief Operative Note Date of Service: 06/21/23 Pre-op diagnosis: Carter's Post-op diagnosis: other (Same, Hiatal hernia, Gastritis) Procedure: EGD with biopsies Surgeon: Abdoulaye Ronquillo MD Anesthesia: MAC Was an [employer] Wire[employer] used for this Procedure?: No Estimated blood loss (mL): 2.0 Pathology: other (A. EG Junction at 33cm B. Gastric antrum) Condition: stable Disposition: PACU
[2023-06-21 11:21] VITALS: BP 131/75; PULSE 72; RESP 18; TEMP 36.6; O2SAT 96
--- NOTE | 2023-06-21 14:39 | OP_ITS ---
DATE OF SERVICE: 06/21/2023 SURGEON: Abdoulaye Ronquillo MD INDICATIONS: The patient presents for evaluation of chronic gastroesophageal reflux and history of Carter's esophagus. Full consent was obtained from him for this, including risks of bleeding and perforation. PREOPERATIVE DIAGNOSIS: POSTOPERATIVE DIAGNOSIS: PROCEDURE PERFORMED: Esophagogastroduodenoscopy with biopsies. ESTIMATED BLOOD LOSS: COMPLICATIONS: ANESTHESIA: Monitored anesthesia care. ASSISTANTS: SPECIMENS: PREOPERATIVE DIAGNOSES: Gastroesophageal reflux and history of Carter's esophagus. POSTOPERATIVE DIAGNOSES: Gastroesophageal reflux, history of Carter's esophagus, hiatal hernia, and mild erosive gastritis. DESCRIPTION OF PROCEDURE: The patient was placed in the left lateral decubitus position. The Olympus video gastroscope was passed in the posterior oropharynx and upper esophagus under direct vision. The scope was passed slowly to the distal esophagus. The gastroesophageal junction appeared at 34 cm. This area had some slight areas of irregularity consistent with reflux and probable small, less than 1 cm areas of Carter's mucosa. There was no gross evidence of any lesions nor esophagitis. The scope entered the stomach. There was a moderate-sized hiatal hernia. The scope was advanced to the pylorus and the duodenum was cannulated to the descending portion. The duodenum including the bulb appeared normal without mass or ulceration. The scope was withdrawn back in the stomach. The gastric antrum had some areas of less than 10 mm erosions with some surrounding edema, but no ulceration nor mass. There was good peristalsis. Biopsies were obtained from the antrum. The scope was retroflexed visualizing the proximal stomach carefully, which appeared normal, without any sign of mass or ulceration. Scope was straightened and withdrawn back to the esophagus. Biopsies were obtained at the EG junction at 34 cm. Proximal to this, the esophageal mucosa appeared normal. The scope was withdrawn from the patient. He tolerated the procedure well and was returned to the recovery area in stable condition. IMPRESSION: 1. Hiatal hernia. 2. Gastroesophageal reflux, rule out Carter's esophagus. 3. Mild erosive gastritis. PLAN: The results of the biopsies will be checked. At this point, he is doing well on his omeprazole. He reports that he has been using either 20 or 40 mg depending upon his symptoms. I did advise him to let me know if he needs refills on either 1 of those. I did advise him not to use any aspirin or NSAIDs for least 1 week. If H pylori is present in the gastric biopsies and he is otherwise asymptomatic, then we could probably hold off on treating that. I would recommend a repeat upper endoscopy in 3 years for further surveillance. He will otherwise see me on a p.r.n. basis. This has been discussed with his significant other. MD MARY Coles/JAN / [id number] MTDD
== END 2023-06-21 11:52 | disposition home or self-care (01) ==
PROVIDERS: PCP Internal Medicine; Visit Provider Internal Medicine
PROC: 0DJ08ZZ Inspection of Upper Intestinal Tract, Via Natural or Artificial Opening Endoscopic (ICD-10-PCS; CPT 43235; principal; 2023-06-21 11:00)
DX: K22.70 Barrett's esophagus without dysplasia (principal); K21.9 Gastro-esophageal reflux disease without esophagitis; K29.60 Other gastritis without bleeding; K44.9 Diaphragmatic hernia without obstruction or gangrene; I10 Essential (primary) hypertension; E78.5 Hyperlipidemia, unspecified; F32.A Depression, unspecified; Z85.46 Personal history of malignant neoplasm of prostate; Z92.3 Personal history of irradiation; Z85.828 Personal history of other malignant neoplasm of skin; Z79.899 Other long term (current) drug therapy; Z88.0 Allergy status to penicillin; Z87.891 Personal history of nicotine dependence
CPT/HCPCS: 43239; 88305; 88313; 88342; J2704

== ENCOUNTER 2023-11-04 11:26 | Outpatient (REF) | payer MEDICARE, SELFPAY ==
[2023-11-04 11:45] LABS: MANUAL DIFF FLAG NO
[2023-11-04 12:15] LABS: Basophils Absolute Auto 0.1 X10*3/uL (0.0-0.2); Eosinophils Absolute Auto 0.2 X10*3/uL (0.0-0.4); Eosinophils Percent Auto 4.4 % (0-4); Hematocrit 43.9 % (42.0-52.0); Imm Gran Abs Auto 0.02 X10*3/uL (0.00-0.03); Imm Gran Pct Auto 0.4 % (0.0-0.4); Lymphocytes Absolute Auto 1.2 X10*3/uL (1.2-4.9); Lymphocytes Percent Auto 23.2 % (20-40); Mean Corpuscular HGB Conc 31.9 g/dl (31.0-36.0); Mean Corpuscular Hemoglobin 26.9 pg (27.0-33.0); Mean Corpuscular Volume 84.4 fL (80.0-98.0); Mean Platelet Volume 10.9 fL (9.4-12.4); Monocytes Absolute Auto 0.5 X10*3/uL (0.1-1.2); Monocytes Percent Auto 9.1 % (2-11); Neutrophils Absolute Auto 3.2 x10*3/uL (2.0-8.3); Neutrophils Percent Auto 61.9 % (45-73); Platelet Count 187 X10*3/uL (160-400); Red Cell Distribution Width 14.3 % (11.0-16.0); White Blood Count 5.2 X10*3/uL (4.8-10.8)
[2023-11-04 12:22] LABS: Estimated Average Glucose 123 mg/dL; Hemoglobin A1C 151.9225 umol/L; Hemoglobin A1c % 5.9 % (<6.0)
[2023-11-04 12:50] LABS: Alanine Aminotransferase 22 U/L (0-40); Alkaline Phosphatase 81 U/L (39-117); Anion Gap 9 (12-20); Aspartate Amino Transferase 22 U/L (5-37); Bilirubin Total 0.6 mg/dL (0.0-1.0); Blood Urea Nitrogen 26 mg/dL (9-16); Calcium 9.8 mg/dL (8.4-10.2); Carbon Dioxide 25 mmol/L (22-29); Chloride 111 mmol/L (96-108); Cholesterol 148 mg/dL (<200); Estimated Glomerular Filt Rate 47; Glucose Random 107 mg/dL (60-115); HDL Cholesterol 38 mg/dL (>40); LDL Cholesterol Calculated 94 mg/dL (<100); Potassium 4.4 mmol/L (3.3-5.1); Sodium 141 mmol/L (135-145); Total Protein 6.6 g/dL (6.5-8.0); Triglycerides 83 mg/dL (<150)
[2023-11-04 13:05] LABS: Free T4 (Free Thyroxine) 1.16 ng/dL (0.71-1.85); Thyroid Stimulating Hormone 1.92 uIU/mL (0.32-4.0)
== END 2023-11-04 11:27 | disposition home or self-care (01) ==
LOC: HO.LAB 11:26
PROVIDERS: PCP Internal Medicine; Visit Provider Internal Medicine
DX: E78.00 Pure hypercholesterolemia, unspecified (principal); R73.02 Impaired glucose tolerance (oral); Z85.46 Personal history of malignant neoplasm of prostate; Z12.5 Encounter for screening for malignant neoplasm of prostate
CPT/HCPCS: 36415; 80053; 80061; 83036; 84153; 84439; 84443; 85025

== ENCOUNTER 2023-11-15 10:15 | Outpatient (AMB) | payer MEDICARE, SELFPAY ==
[2023-11-15 10:16] VITALS: BP 144/80; PULSE 89; O2SAT 95; BMI 33.2
--- NOTE | 2023-11-15 10:16 | AM.OFFVISMDC ---
Intake Vital Signs 11/15/23 10:16 11/15/23 10:47 Height 5 ft 11 in Weight 238 lb 0.3 oz BMI 33.2 BP 144/80 H 138/80 Blood Pressure Location Lt brachial Lt brachial Position Sitting Sitting Pulse 89 Pulse Source Pulse Oximeter Pulse Oximetry (%) 95 Oxygen Delivery Method Room Air Intake Visit Reasons: V G0439 Intake Note: Patient is here for an Annual Wellness Visit. Prevention Rn Required: No Allergies Penicillins Allergy (Intermediate, Verified 11/15/23 10:17) HIVES peanut [PEANUT] Allergy (Unknown, Verified 11/15/23 10:17) UNKNOWN Medication List - Last Reconciled 11/15/23 by Joanne Bejarano MD amlodipine 5 mg PO DAILY antiarthritic combination no.2 (glucosamine-chondroitin) mg PO atorvastatin 40 mg PO .Qod buspirone 10 mg PO TID clonazepam 1 mg PO DAILY PRN dextroamphetamine-amphetamine 10 mg ER (Adderall XR) 10 mg PO DAILY escitalopram oxalate (Lexapro) 5 mg PO BID finasteride 1 tab PO DAILY fluticasone propionate 50 mcg/actuation 1 spray intranasal QAM gabapentin 300 mg PO BID ibuprofen 400 mg PO .QD lisinopril 10 mg PO DAILY loratadine 1 tab PO DAILY lysine (L-Lysine) 500 mg PO DAILY omeprazole 1 cap PO QAM HPI V G0439 HPI Details 78-year-old obese male with hypertension Barretts esophagus hypercholesterolemia generalized anxiety disorder history of prostate cancer impaired glucose tolerance last seen in April 2023. Patient is colonoscopy last done in August 2020. Recently had the EGD done May 2023 on omeprazole advised repeat endoscopy in 3 years. Noted ortho note April 2023 for the back and lower extremity pain diagnosis lumbar spondylosis muscle relaxant prescribe naproxen and gabapentin . cough for a few months , occ sob, no fevers,no sore throat PFSH Medical History (Updated 11/15/23 @ 19:59 by Joanne Bejarano MD) Impacted cerumen of both ears Recent change in frequency of bowel movements Left knee pain Post-nasal drip Low back pain GERD (gastroesophageal reflux disease) History of skin cancer Depression Elevated cholesterol HTN (hypertension) History of prostate cancer Surgical History History of cataract surgery H/O colonoscopy Family History (Updated 07/02/22 @ 15:06 by Kavita Joseph CMA) Mother No problems noted. Father Tuberculosis Brother No problems noted. Sister No problems noted. Son No problems noted. Son No problems noted. Social History (Updated 10/31/21 @ 11:43 by Joanne Bejarano MD) Housing: House Alcohol intake: former Patient Tobacco Use Status: Former Tobacco user Tobacco use type: Cigarette Years Smoked: quit 1999 e-Cigarette/Vaping Use: Never Used Second Hand Smoke Exposure: No Current occupational status: retired Cognitive needs: No Hearing needs: No Vision needs: Yes Questionnaire Medicare Wellness Checkup What [age]?: 70-79 (77) What gender do you identify with?: male During the past 4 weeks, how much have you been bothered by emotional problems such as feeling anxious, depressed, irritable, sad or downhearted, and blue?: quite a bit During the past 4 weeks, has your physical & emotional health limited your social activities with family, friends, neighbors, or groups?: not at all During the past 4 weeks, how much bodily pain have you generally had?: moderate pain During the past 4 weeks, was someone available to help you if you needed & wanted help?: yes, as much as I wanted During the past 4 weeks, what was the hardest physical activity you could do for at least 2 minutes?: heavy Can you get to places out of walking distance without help? (For eg., can you travel alone on buses, taxis or drive your car?): Yes Can you go shopping for groceries or clothes without someone's help?: Yes Can you prepare your own meals?: Yes Can you do your housework without help?: Yes Because of any health problems, do you need the help of another person with your personal care needs such as eating, bathing, dressing or getting around the house?: No Can you handle your own money without help?: Yes During the past 4 weeks, how would you rate your health in general?: good During the past 4 weeks how have things been going for you?: pretty well Are you having difficulties driving your car?: no Do you always fasten your seat belt when you are in a car?: yes, usually During past 4 weeks, have you been bothered by the following: never: Trouble eating well?, Teeth or denture problems? and Problems using the telephone? and seldom: Falling or dizzy when standing up, Sexual problems? and Tiredness or fatigue? Have you fallen 2 or more times in the past year?: No Are you afraid of falling?: No Are you a smoker?: no During the past 4 weeks, how many drinks of wine, beer, or other alcoholic beverages did you have?: no alcohol at all Do you exercise for about 20 minutes 3 or more times a week?: yes, most of the time Have you been given information to help with the following?: no: Hazards in your house that might hurt you? and no: Keeping track of your medications? How often do you have trouble taking medicines the way you have been told to take them?: I always take medicine as prescribed How confident are you that you can control & manage most of your health problems?: somewhat confident What is your race?: White PHQ-9 Over the last 2 weeks, how often have you been bothered by any of the following problems? 1. Little interest or pleasure in doing things: not at all 2. Feeling down, depressed, or hopeless: several days 3. Trouble falling or staying asleep, or sleeping too much: several days 4. Feeling tired or having little energy: not at all 5. Poor appetite or overeating: several days 6. Feeling bad about yourself - or that you are a failure or have let yourself or your family down: several days 7. Trouble concentrating on things, such as reading the newspaper or watching television: several days 8. Moving or speaking so slowly that other people could have noticed. Or the opposite - being so fidgety or restless that you have been moving around a lot more than usual: not at all 9. Thoughts that you would be better off or of hurting yourself in some way: not at all Total score: 5 Depression Screening Interpretation: Positive Depression Screening Done: Yes 06003 - PHQ-9 Billing: Yes Source: Developed by Drs. Abdoulaye White, Mone Robles, Rico Holguin and colleagues, with an educational rasta from [employer]. Review of Systems Const Denies poor appetite and Denies weakness Eyes Denies no additional complaints ENT Reports Normal hearing present, Denies dizziness, Denies nasal congestion, Denies tinnitus and Denies sore throat Card Denies chest pain, Denies syncope, Denies rapid heart rate and Denies dyspnea Resp Denies cough and Denies dyspnea GI Denies change in stool character, Reports constipation, Denies diarrhea, Denies nausea and Denies vomiting Denies dysuria and Denies urinary frequency Neuro Reports Normal hearing present, Denies confusion, Denies dizziness, Denies syncope and Denies weakness Psych Denies confusion Physical Exam Vital Signs: Last Vital Signs Pulse 89 11/15/23 10:16 BP 138/80 11/15/23 10:47 Pulse Ox 95 11/15/23 10:16 Oxygen Delivery Method Room Air 11/15/23 10:16 BMI result Body Mass Index 33.2 Const General: No confusion Orientation/consciousness: No confusion HEENT Head: Yes normocephalic Ears: external ears normal and TM's normal bilaterally Face and sinus: Yes normal facial exam Mouth: moist mucous membranes Throat: Yes tonsils normal Eyes Conjunctivae: conjunctivae normal Pupils: Equal, round and reactive pupils present and Pupil accommodation reflex normal Direct Ophthalmoscopy: normal light reflex Neck Neck: No lymphadenopathy Thyroid: Thyroid normal Chest Chest palpation & inspection: normal inspection of the chest Resp Effort & Inspection: normal respiratory effort and no audible wheezes Auscultation: clear to auscultation bilaterally, no crackles, no wheezes and lung sounds not diminished Cardio Rate: regular rate Rhythm: regular rhythm Peripheral pulses: radial pulses present and dorsalis pedis present GI Other: decline Palpation (GI): no masses Auscultation: normal bowel sounds and normoactive bowel sounds Male General Exam: Yes normal external exam Skin General skin exam: no rashes or lesions noted Rashes: no rashes Neuro General: No confusion Cranial nerves: Yes Equal, round and reactive pupils present and Yes Normal hearing present Cognition (Neuro): normal cognition Gait exam (Neuro): Normal gait present Motor exam (neuro): 5/5 motor strength present throughout Deep tendon reflexes (DTR's): Right brachioradialis reflex intensity grade: 2+, Left brachioradialis reflex intensity grade: 2+, Right patellar reflex intensity grade: 2+ and Left patellar reflex intensity grade: 2+ Extrem Other: left leg swelling General: No edema Assessment & Plan Assessment & Plan (1) Medicare annual wellness visit, subsequent: Code(s): Z00.00 - Encounter for general adult medical examination without abnormal findings Plan: Patient is advised to eat healthy, keep well hydrated, keep active and have adequate sleep. (2) Lumbar spondylosis: Code(s): M47.816 - Spondylosis without myelopathy or radiculopathy, lumbar region Plan: Patient has seen ortho and was advised muscle relaxants and anti-inflammatory but concerns about renal function (3) Impaired glucose tolerance: Code(s): R73.02 - Impaired glucose tolerance (oral) Plan: Decrease the amount of carbohydrate intake, pasta, bread, rice and potatoes are all sugar and that is aside from all the sweet stuff, remember that fruits are good but they are Sweet also. (4) Fatty liver: Code(s): K76.0 - Fatty (change of) liver, not elsewhere classified Plan: Low-fat diet and exercise (5) History of prostate cancer: Comment: 2016-w/radiation, Dr. Varela Code(s): Z85.46 - Personal history of malignant neoplasm of prostate Plan: Continue to follow-up with urology and patient is on finasteride (6) Barretts esophagus: Comment: EGD May 2023 3 years Code(s): K22.70 - 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 Qualifiers: Carter's esophagus type: without dysplasia Qualified Code(s): K22.70 - 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 Plan: Avoid the foods that causes that usually spicy foods, tomato products, juices, coffee, soda and foods that your sensitive to. After eating do not lie down, allow 3-4 hours before in lie down. And keep the head of bed above 30 degrees to avoid the acid from going up. On omeprazole patient has seen gastroenterology and recently EGD done (7) Hypertension: Code(s): I10 - Essential (primary) hypertension Qualifiers: Hypertension type: primary hypertension Qualified Code(s): I10 - Essential (primary) hypertension Plan: Continue with blood pressure medication. Decrease salt intake and exercise takes amlodipine 5 mg once a day lisinopril 5 mg once a day (8) Elevated cholesterol: Code(s): E78.00 - Pure hypercholesterolemia, unspecified Plan: Avoid fried foods, chicken skin, eggs, butter margarine, pastries and meat. Be it pork or beef they have a lot of cholesterol LDL goal of less than 130 and triglyceride of less than 150 on atorvastatin 20 mg once a day (9) Generalized anxiety disorder: Comment: Mariposa Hooker Code(s): F41.1 - Generalized anxiety disorder Plan: Continue with buspirone , Lexapro and clonazepam (10) Renal insufficiency: Code(s): N28.9 - Disorder of kidney and ureter, unspecified Plan: Discussed concerns about NSAIDs will need to refrain from using this. And keeping well hydrated (11) ADHD (attention deficit hyperactivity disorder): Code(s): F90.9 - Attention-deficit hyperactivity disorder, unspecified type Plan: continue with counselling and therapy (12) Cough: Code(s): R05.9 - Cough, unspecified Qualifiers: Cough type: subacute Qualified Code(s): R05.2 - Subacute cough Plan: advised to take allergy med for 1 month (13) Left leg swelling: Code(s): M79.89 - Other specified soft tissue disorders Plan: US leg requested (14) Obesity (BMI 30-39.9): Code(s): E66.9 - Obesity, unspecified Plan: Diet and exercise Orders: Orders XR chest 2V Today R05.9 - Cough, unspecified PFT pulmonary function test Today R05.9 - Cough, unspecified US venous duplex LE LT Today M79.89 - Other specified soft tissue disorders Comprehensive Met. Panel Today N28.9 - Disorder of kidney and ureter, unspecified Medications: New semaglutide (weight loss) (Wegovy) administer weeks 1 through 4 of therapy 0.25 mg (0.5 mL) subcut QWEEK 2 mL 1RF E66.9 - Obesity, unspecified Quality Reporting (2019) Depression/Bipolar (159/160/161/177) PHQ-9: Total score: 5 Coding Level of Care Code Medicare Subsequent (G0439) Diagnoses Medicare annual wellness visit, subsequent Z00.00 Lumbar spondylosis M47.816 Impaired glucose tolerance R73.02 Fatty liver K76.0 History of prostate cancer Z85.46 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 K22.70 Carter's esophagus type: without dysplasia Primary hypertension I10 Hypertension type: primary hypertension Elevated cholesterol E78.00 Generalized anxiety disorder F41.1 Renal insufficiency N28.9 ADHD (attention deficit hyperactivity disorder) F90.9 Subacute cough R05.2 Cough type: subacute Left leg swelling M79.89 Obesity (BMI 30-39.9) E66.9
[2023-11-15 10:47] VITALS: BP 138/80
== END 2023-11-15 11:28 | disposition home or self-care (01) ==
PROVIDERS: PCP Internal Medicine; Visit Provider Internal Medicine
DX: Z00.00 Encounter for general adult medical examination without abnormal findings (principal); M47.816 Spondylosis without myelopathy or radiculopathy, lumbar region; R73.02 Impaired glucose tolerance (oral); K76.0 Fatty (change of) liver, not elsewhere classified; Z85.46 Personal history of malignant neoplasm of prostate; K22.70 Barrett's esophagus without dysplasia; I10 Essential (primary) hypertension; E78.00 Pure hypercholesterolemia, unspecified; F41.1 Generalized anxiety disorder; N28.9 Disorder of kidney and ureter, unspecified; F90.9 Attention-deficit hyperactivity disorder, unspecified type; R05.2 Subacute cough; M79.89 Other specified soft tissue disorders; E66.9 Obesity, unspecified
CPT/HCPCS: G0439

== ENCOUNTER 2023-11-15 15:03 | Outpatient (REF) | payer MEDICARE, SELFPAY ==
--- NOTE | ~2023-11-15 | US_ITS ---
EXAMINATION: LEFT LOWER EXTREMITY DEEP VENOUS ULTRASOUND CLINICAL INFORMATION: Left leg pain. COMPARISON: None. TECHNIQUE: Duplex Doppler imaging with compression maneuvers were performed of the left lower extremity deep venous system. FINDINGS: The visualized common femoral, femoral and popliteal veins demonstrate normal compressibility and color flow without evidence of venous thrombosis. Visualized portions of the calf veins demonstrate normal color fill-in suggesting patency. There is no evidence of a Wing's cyst. US/US venous duplex LE LT IMPRESSION: No evidence of deep venous thrombosis involving the left lower extremity.
--- NOTE | ~2023-11-15 | XR_ITS ---
EXAMINATION: XR CHEST 2 VIEWS CLINICAL INFORMATION: Cough. COMPARISON: None. TECHNIQUE: Frontal and lateral views of the chest were obtained. FINDINGS: The heart, great vessels, pulmonary vasculature and mediastinum are normal. There is atherosclerotic calcification and tortuosity of the thoracic aorta. The lungs show no focal infiltrate, effusion or pneumothorax. There is no acute osseous abnormality. There is multi-level thoracic spondylosis. XR/XR chest 2V IMPRESSION: No active cardiopulmonary disease.
[2023-11-15 17:03] LABS: Alanine Aminotransferase 26 U/L (0-40); Albumin Level 4.2 g/dL (3.5-5.0); Alkaline Phosphatase 86 U/L (39-117); Anion Gap 14 (12-20); Aspartate Amino Transferase 27 U/L (5-37); Bilirubin Total 0.6 mg/dL (0.0-1.0); Blood Urea Nitrogen 22 mg/dL (9-16); Calcium 9.7 mg/dL (8.4-10.2); Carbon Dioxide 27 mmol/L (22-29); Chloride 107 mmol/L (96-108); Estimated Glomerular Filt Rate 46; Glucose Random 93 mg/dL (60-115); Potassium 4.7 mmol/L (3.3-5.1); Sodium 143 mmol/L (135-145)
== END 2023-11-15 15:04 | disposition home or self-care (01) ==
LOC: HO.US 15:03
PROVIDERS: PCP Internal Medicine; Visit Provider Internal Medicine
DX: R05.9 Cough, unspecified (principal); N28.9 Disorder of kidney and ureter, unspecified; M79.605 Pain in left leg; M79.89 Other specified soft tissue disorders
CPT/HCPCS: 36415; 71046; 80053; 93971

== ENCOUNTER 2024-03-16 13:52 | Outpatient (AMB) | payer MEDICARE, SELFPAY ==
[2024-03-16 14:06] VITALS: BP 122/80; PULSE 67; O2SAT 98; BMI 33.0
--- NOTE | 2024-03-16 14:06 | MHC.PC.OV ---
Vital Signs 03/16/24 14:06 Height 5 ft 11 in Weight 236 lb 8 oz BMI 33.0 BP 122/80 Blood Pressure Location Lt brachial Position Sitting Pulse 67 Pulse Source Pulse Oximeter Pulse Oximetry (%) 98 Oxygen Delivery Method Room Air Intake Visit Reasons: IGT, Cough Service Girl Required: No Accompanied by: Self / Same As Patient Allergies Penicillins Allergy (Intermediate, Verified 03/16/24 14:07) HIVES peanut [PEANUT] Allergy (Unknown, Verified 03/16/24 14:07) UNKNOWN Tobacco use date assessed: 03/16/24 Fall risk assessment: No Falls in past year Last assessed Fall Risk: 03/16/24 Dental Screening Dental Screen Date: 03/16/24 Did you have a dental visit in the last 12 months?: Yes Did you have a dental problem in the last 6 months where you did not have access to dental care?: No Was dental information given to patient?: Patient has dentist HPI IGT, Cough HPI Details 78-year-old obese male with a history of impaired glucose tolerance lumbar spondylosis history of prostate cancer(status post XRT 2015) Barretts esophagus hypertension hypercholesterolemia insufficiency ADHD coming in for follow-up. Last seen for annual wellness in 11/13/2023. Patient's last colon test was in 2020 EGD 2023. Review of the notes urology seen 01/14/2024 on Flomax and finasteride patient onCamcevi. Patient was last seen in November having a cough and an x-ray was done with negative results. Concern about leg swelling also in an ultrasound done showing no evidence of DVT. [facility] Medical History (Updated 11/15/23 @ 19:59 by Joanne Bejarano MD) Impacted cerumen of both ears Recent change in frequency of bowel movements Left knee pain Post-nasal drip Low back pain GERD (gastroesophageal reflux disease) History of skin cancer Depression Elevated cholesterol HTN (hypertension) History of prostate cancer Surgical History History of cataract surgery H/O colonoscopy Family History Mother No problems noted. Father Tuberculosis Brother No problems noted. Sister No problems noted. Son No problems noted. Son No problems noted. Social History (Reviewed 03/16/24 @ 14:08 by JUSTINE Miller Housing: House Alcohol intake: former Patient Tobacco Use Status: Former Tobacco user Tobacco use type: Cigarette Years Smoked: quit 2000 e-Cigarette/Vaping Use: Never Used Second Hand Smoke Exposure: No Current occupational status: retired Cognitive needs: No Hearing needs: No Vision needs: Yes Questionnaire PHQ-9 Over the last 2 weeks, how often have you been bothered by any of the following problems? 1. Little interest or pleasure in doing things: not at all 2. Feeling down, depressed, or hopeless: several days 3. Trouble falling or staying asleep, or sleeping too much: several days 4. Feeling tired or having little energy: not at all 5. Poor appetite or overeating: several days 6. Feeling bad about yourself - or that you are a failure or have let yourself or your family down: several days 7. Trouble concentrating on things, such as reading the newspaper or watching television: several days 8. Moving or speaking so slowly that other people could have noticed. Or the opposite - being so fidgety or restless that you have been moving around a lot more than usual: not at all 9. Thoughts that you would be better off or of hurting yourself in some way: not at all Total score: 5 Depression Screening Interpretation: Positive Depression Screening Done: Yes 51513 - PHQ-9 Billing: Yes Source: Developed by Drs. Abdoulaye White, Mone Robles, Rico Holguin and colleagues, with an educational rasta from [id number]. Thrive Questionnaire Date Thrive assessed: 03/16/24 I am a: Patient What is your living situation today?: I have a steady place to live Within the past 12 months, did the food you bought not last and you didn't have the money to get more?: Never true Within the past 12 months, did you worry whether your food would run out before you got money to buy more?: Never true Do you have trouble paying for medicines?: No Do you have trouble getting transportation to medical appointments?: No Do you have trouble paying your heating and electricity bill?: No Do you have trouble taking care of your child, family member or friend?: No Do you have trouble with day-to-day activities such as bathing, preparing meals, shopping, managing finances, etc.?: No Are you currently unemployed and looking for a job?: No Are you interested in more education?: No Please select the resources that you would like help with: None Currently or been in a relationship where the following occur: No concerns reported THRIVE Score: 0 AUDIT C Alcohol Use Questionnaire (AUDIT-C) 1. How often do you have a drink containing alcohol?: Never 3. How often do you have six or more drinks on one occasion?: Never Total Score: 0 RONNIE-7 AMB Questionnaire RONNIE-7 Date RONNIE - 7 assessed: 03/16/24 Feeling nervous, anxious, or on edge: 0 = Not at all Not being able to stop or control worryin = Not at all Worrying too much about different things: 0 = Not at all Trouble relaxin = Not at all Being so restless that it is hard to sit still: 0 = Not at all Becoming easily annoyed or irritable: 0 = Not at all Feeling afraid as if something awful might happen: 0 = Not at all Total RONNIE-7 score (0-4 normal; 5-9 mild; 10-14 moderate; 15-21 severe): 0 Source: Developed by Drs. Abdoulaye White, Mone Robles, Rico Holguin and colleagues, with an educational rasta from [id number]. Physical exam (Primary Care) Vital Signs: Last Vital Signs Pulse 67 03/16/24 14:06 BP 122/80 03/16/24 14:06 Pulse Ox 98 03/16/24 14:06 Oxygen Delivery Method Room Air 03/16/24 14:06 BMI result Body Mass Index 33.0 Tobacco/Smoking Status: Tobacco use Status Tobacco use date assessed 03/16/24 03/16/24 14:15 Patient Tobacco Use Status Former Tobacco user 03/16/24 14:15 Tobacco use type Cigarette 03/16/24 14:15 e-Cigarette/Vaping Use Never Used 03/16/24 14:15 PHQ-9: PHQ-9 Score PHQ-9: Total score 5 03/16/24 14:16 Depression Screening Interpretation: Positive Thrive Assessment: Date of Thrive Assessment Date Thrive assessed 03/16/24 03/16/24 14:15 Currently or been in a relationship where the following occur: No concerns reported Const General: alert; No acute distress Eyes Conjunctivae: conjunctivae normal Resp Auscultation: clear to auscultation bilaterally Cardio Rate: regular rate Rhythm: regular rhythm GI Inspection: Yes normal to inspection Extrem General: Yes normal to inspection and No edema Coding Level of Care Code Est Pt Level 4 (90966) Diagnoses Obesity (BMI 30-39.9) E66.9 Subacute cough R05.2 Cough type: subacute Renal insufficiency N28.9 Impaired glucose tolerance R73.02 History of prostate cancer Z85.46 Generalized anxiety disorder F41.1 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 K22.70 Carter's esophagus type: without dysplasia Primary hypertension I10 Hypertension type: primary hypertension Additional Codes PHQ-9 - 01978 - PHQ-9 Billing: Yes ([id number]) Assessment & Plan Assessment & Plan (1) Obesity (BMI 30-39.9): Code(s): E66.9 - Obesity, unspecified Category: Medical Plan: diet and exercise (2) Cough: Code(s): R05.9 - Cough, unspecified Category: Medical Qualifiers: Cough type: subacute Qualified Code(s): R05.2 - Subacute cough Plan: chest x-ray done revealed negative results. due to cough - will change lisinopril (3) Renal insufficiency: Code(s): N28.9 - Disorder of kidney and ureter, unspecified Category: Medical Plan: keep well hydrated avoid NSAIDs (4) Impaired glucose tolerance: Code(s): R73.02 - Impaired glucose tolerance (oral) Category: Medical Plan: Decrease the amount of carbohydrate intake, pasta, bread, rice and potatoes are all sugar and that is aside from all the sweet stuff, remember that fruits are good but they are Sweet also. (5) History of prostate cancer: Comment: 2016-w/radiation, Dr. Varela Code(s): Z85.46 - Personal history of malignant neoplasm of prostate Category: Medical Plan: Continue to follow-up with urology patient has finasteride taken. (6) Generalized anxiety disorder: Comment: Mariposa Hooker Code(s): F41.1 - Generalized anxiety disorder Category: Medical Plan: Continue with counseling and therapy on buspirone, Lexapro and clonazepam (7) Barretts esophagus: Comment: EGD May 2023 3 years Code(s): K22.70 - 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 Category: Medical Qualifiers: Carter's esophagus type: without dysplasia Qualified Code(s): K22.70 - 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 Plan: Avoid the foods that causes that usually spicy foods, tomato products, juices, coffee, soda and foods that your sensitive to. After eating do not lie down, allow 3-4 hours before in lie down. And keep the head of bed above 30 degrees to avoid the acid from going up. (8) Hypertension: Code(s): I10 - Essential (primary) hypertension Category: Medical Qualifiers: Hypertension type: primary hypertension Qualified Code(s): I10 - Essential (primary) hypertension Plan: Continue with amlodipine 5 mg once a day lisinopril 10 mg once a day Medications: New losartan 25 mg PO DAILY 90 tabs 0RF I10 - Essential (primary) hypertension losartan 25 mg PO DAILY 90 tabs 0RF I10 - Essential (primary) hypertension Discontinued semaglutide (weight loss) (Jan) administer weeks 1 through 4 of therapy Discontinued Reason: Insurance Denied 0.25 mg (0.5 mL) subcut QWEEK 2 mL 1RF E66.9 - Obesity, unspecified
== END 2024-03-16 14:37 | disposition home or self-care (01) ==
PROVIDERS: PCP Internal Medicine; Visit Provider Internal Medicine
DX: R73.02 Impaired glucose tolerance (oral) (principal); E66.9 Obesity, unspecified; Z68.33 Body mass index [BMI] 33.0-33.9, adult; R05.2 Subacute cough; N28.9 Disorder of kidney and ureter, unspecified; Z85.46 Personal history of malignant neoplasm of prostate; F41.1 Generalized anxiety disorder; K22.70 Barrett's esophagus without dysplasia; I10 Essential (primary) hypertension

== ENCOUNTER 2024-03-16 15:46 | Outpatient (REF) | payer MEDICARE, SELFPAY ==
[2024-03-16 11:29] VITALS: PULSE 80; O2SAT 94
--- NOTE | 2024-03-16 15:49 | PFT_ITS ---
Indication: Cough Spirometry [FEV1 to FVC 56%; FEV1 2.79 L; FVC 4.95 L. no significant response to bronchodilators noted. Maximum voluntary ventilation 77% predicted] Lung Volumes [Total lung capacity 94% predicted] Diffusion Capacity [DLCO 78% predicted] Comparisons [None] Interpretation [There is a obstructive ventilatory defect consistent with mild COPD. No significant response to bronchodilators noted. Mild decrease in the maximum voluntary ventilation secondary to likely deconditioning. One volumes are within normal limits. The patient does have mild diffusion impairment. Clinical correlation warranted.] MTDD
== END 2024-03-16 15:47 | disposition home or self-care (01) ==
LOC: HO.RESP 15:46
PROVIDERS: PCP Internal Medicine; Visit Provider Internal Medicine
DX: R05.9 Cough, unspecified (principal); E66.9 Obesity, unspecified; K22.70 Barrett's esophagus without dysplasia
CPT/HCPCS: 94010; 94640; 94727; 94729; 96127; 99212

== ENCOUNTER → 2024-03-16 15:49 | Outpatient (BNV) | payer MEDICARE, SELFPAY | PROVIDERS: PCP Internal Medicine; Visit Provider Hospitalist | DX: R05.9 Cough, unspecified (principal) | CPT/HCPCS: 94060; 94727; 94729 ==

== ENCOUNTER 2024-06-22 11:21 | Outpatient (REF) | payer MEDICARE, SELFPAY ==
[2024-06-22 11:37] LABS: MANUAL DIFF FLAG NO
[2024-06-22 12:25] LABS: Basophils Absolute Auto 0.1 X10*3/uL (0.0-0.2); Basophils Percent Auto 0.6 % (0-2); Eosinophils Absolute Auto 0.2 X10*3/uL (0.0-0.4); Hematocrit 43.7 % (42.0-52.0); Hemoglobin 13.8 g/dl (14.0-18.0); Imm Gran Abs Auto 0.07 X10*3/uL (0.00-0.03); Imm Gran Pct Auto 0.9 % (0.0-0.4); Lymphocytes Absolute Auto 1.2 X10*3/uL (1.2-4.9); Lymphocytes Percent Auto 14.9 % (20-40); Mean Corpuscular HGB Conc 31.6 g/dl (31.0-36.0); Mean Corpuscular Hemoglobin 26.3 pg (27.0-33.0); Mean Corpuscular Volume 83.2 fL (80.0-98.0); Monocytes Absolute Auto 0.8 X10*3/uL (0.1-1.2); Monocytes Percent Auto 9.7 % (2-11); Neutrophils Absolute Auto 5.8 x10*3/uL (2.0-8.3); Neutrophils Percent Auto 71.9 % (45-73); Platelet Count 189 X10*3/uL (160-400); Red Blood Count 5.25 X10*6/uL (4.60-5.80); Red Cell Distribution Width 14.4 % (11.0-16.0); White Blood Count 8.1 X10*3/uL (4.8-10.8)
[2024-06-22 12:33] LABS: Estimated Average Glucose 126 mg/dL; Total Hemoglobin (HGBA1C) 3647.2633 umol/L
[2024-06-22 13:09] LABS: Alanine Aminotransferase 27 U/L (0-40); Albumin Level 3.9 g/dL (3.5-5.0); Alkaline Phosphatase 96 U/L (39-117); Anion Gap 11 (12-20); Aspartate Amino Transferase 30 U/L (5-37); Bilirubin Total 0.5 mg/dL (0.0-1.0); Blood Urea Nitrogen 29 mg/dL (9-16); Calcium 10.2 mg/dL (8.4-10.2); Carbon Dioxide 27 mmol/L (22-29); Chloride 111 mmol/L (96-108); Cholesterol 175 mg/dL (<200); Estimated Glomerular Filt Rate > 60; Glucose Random 105 mg/dL (60-115); HDL Cholesterol 51 mg/dL (>40); LDL Cholesterol Calculated 100 mg/dL (<100); Potassium 4.5 mmol/L (3.3-5.1); Sodium 144 mmol/L (135-145); Total Protein 6.9 g/dL (6.5-8.0); Triglycerides 123 mg/dL (<150)
[2024-06-22 13:27] LABS: Free T4 (Free Thyroxine) 1.09 ng/dL (0.71-1.85); Thyroid Stimulating Hormone 1.65 uIU/mL (0.32-4.0)
[2024-06-22 13:36] LABS: Folate 8.2 ng/mL (> or = 4.0); Vitamin B12 580 pg/mL (200-900)
--- OUTSIDE RECORDS SUMMARY | 2024-06-22 13:50 | XMS_ITS | Encounter Summary ---
Author Name [facility] [place] [facility] [place] Address [address] [place] [address] Care Team Providers Care Paleology Professor Name Role Phone STEPHON UGARTE Primary Care [...] Hardy's Name Patient's Relationship to Policy Hardy WILLIAM [place] OF [place] MEDICARE SUPPLEMEN ANTWAN MEDEX 2 Apr 26, 2017 [id number] [phone] MARCIAL VILLAELIO PATIENT ANTHEM BCBS OF CT MEDICARE SUPPLEMEN ANTWAN COH RETIR EMENT Apr 26, 2017 [id number] MARCIAL VILLAELIO PATIENT [place] MEDIC[place] SUPPLEMEN ANTWAN MEDEX 2 Apr 26, 2017 [id number] [phone] MARCIAL DAISYELIO PATIENT [place] SUPPLEMEN ANTWAN MEDEX 2 Apr 26, 2017 [id number] MARCIAL VILLAELIO PATIENT [place] MED[place] SUPPLEMEN ANTWAN MEDEX 2 Apr 26, 2017 [id number] [phone] ELIO CORTES PATIENT MEDICARE (WNR) MEDICARE (M) PART A Oct 24, 2012 PART A [id number] [phone] ELIO CORTES PATIENT MEDICARE (WNR) MEDICARE (M) PART B Oct 24, 2012 PART B [id number] ELIO CORTES PATIENT MEDICARE (WNR) MEDICARE (M) PART A Oct 24, 2012 PART A [id number] ELIO CORTES PATIENT MEDICARE (WNR) MEDICARE (M) PART B Oct 24, 2012 PART B [id number] [phone] ELIO CORTES PATIENT MEDICARE (WNR) MEDICARE (M) PART A Oct 24, 2012 PART A [id number] ELIO CORTES PATIENT MEDICARE (WNR) MEDICARE (M) PART B Oct 24, 2012 PART B [id number] ELIO CORTES PATIENT Selected Encounter This section includes the information on record at [place] for the Encounter. Date/Time Encounter Type Encounter Description Reason Provider Source Jun 09, 2024 11:15 AM OFF/OP EST AUGUST X REQ PHY/QHP PRIMARY CARE/MEDICINE ICD-10-CM R05.9 Cough, unspecified JACQUE,STEPHEN K Julee Encounter Template Text not used by [place] Assessments - Encounter Diagnoses This section includes the primary and secondary diagnoses documented for the Encounter. Date/Time Primary/Secondary Diagnosis Diagnosis Name Provider Source Jun 09, 2024 12:01 PM PRIMARY Cough, unspecified JACQUE,STEPHEN K BARRETT Jun 09, 2024 12:01 PM SECONDARY Dyspnea, unspecified JACQUE,STEPHEN K BARRETT Plan of Treatment: Future Appointments (+ 6 months) and Future Tests (+/- 45 days) The Plan of Treatment section includes future care activities for the patient from all [place] treatment[facility]ilities. This section includes future appointments and future orders which are active, pending or scheduled. Future Appointments This section includes appointments that were scheduled to occur 6 months from the date of the Encounter, up to a maximum of 20 appointments. The data comes from all [facility]. Appointment Date/Time Appointment Type Appointme nt Facility Name Oct 10, 2024 11:00 AM AMBULATORY - MEDICINE [facility] Oct 23, 2024 01:00 PM AMBULATORY - MEDICINE [facility] Active, Pending, and Scheduled Orders This section includes a listing of several types of active, pending, and scheduled orders, including clinic medications orders, diagnostic test orders, procedure orders and consult orders; where the start date of the order is 45 days before the date of the Encounter or 45 days after the date of theEncounter. The data comes from all [facility]. Test Date/Time Test Type Test Details Facility Name Jun 09, 2024 12:00 AM Laboratory - Chemi stry Order BASIC METABOLIC PANEL (non-fasting) BLOOD (SST-SERUM) [facility] Jun 09, 2024 12:00 AM Laboratory - Chemi stry Order HEMOGLOBIN A1C PANEL BLOOD (LAV-BLOOD) [facility] Jun 09, 2024 12:00 AM Laboratory - Chemi stry Order MICROALBUMIN CREATININE RATIO PANEL URINE (RANDOM) [facility] Jun 09, 2024 12:00 AM Laboratory - Chemi stry Order LIVER FUNCTION BLOOD (SST-SERUM) [facility] Jun 09, 2024 12:00 AM Laboratory - Chemi stry Order CBC BLOOD (LAV-BLOOD) [facility] Jun 09, 2024 12:00 AM Laboratory - Chemi stry Order LIPID PANEL, NON FASTING BLOOD (SST-SERUM) [facility] Lab Results: +/- 30 days of the encounter This section includes the Chemistry and Hematology Lab Results on record with [place] for the patient. Radiology Reports and Pathology Reports are provided separately, in subsequent sections. Lab Results This section contains the Chemistry/Hematology Results that were resulted 30 days before or 30 daysafter the date of the Encounter. Date/Time Source Result Type Result - Unit Interpretation Reference Range Comment Jun 09, 2024 11:41 AM [facility] COVID-19 FLU/RSV DIAGNOSTIC PANEL Speci men Type: NASOPHARYNX Comment: This test is authorized for emergency use only. False negative results may occur if virus is present at levels below the analytical limit of detection.Nega tive results do not preclude SARS-CoV-2, influenza or RSV infection and should not be used as the sole basis for treatment or other patient management decisions.[facility] guillermo FLUVID: HCPs: https://www.[place].gov/media2434/download. Patients: https://www.[place].gov/2435/download Ordering Provider: MALACHI ROE Report Released Date/Time: Jun 09, 2024 11:33 AM Reporting Lab: [address] [id number] Performing Lab: [address] [id number] COVID-19 PCR (FLUVID) NEGATIVE NEGATIVE FLU A PCR (FLUVID) POSITIVE FLU B PCR (FLUVID) NEGATIVE RSV PCR (FLUVID) NEGATIVE Vital Signs: All taken on the encounter date This section contains inpatient and outpatient Vital Signs collected on the date of the Encounter. Date/Time Temperature Pulse Blood Pressure Respiratory Rate SP02 Pain Height Weight Body Mass Index Source Jun 09, 2024 11:36 AM 97.2 89 144//77 19 98 0 [facility] Social History: Smoking Status (Most current) and Tobacco Use (All prior to encounter date) This section includes the most current, and the historical, smoking and tobacco- related health factors from the [place] facility where the Encounter took place. Current Smoking Status This section includes the most current smoking, or tobacco-related health factor, from the [place] facility where the Encounter took place. Date/Time Current Smoking Status Comment Ale ity Oct 25, 2023 08:30 AM VA-TOBACCO NEVER USED [facility] Tobacco Use History This section includes a history of the smoking, or tobacco-related health factors, that were collected on or before the date of the Encounter. The data comes from the [place] facility where the Encounter took place. Date/Time Smoking Status/Tobacco Use Comment F acility Mar 23, 2022 01:30 PM VA-TOBACCO NEVER USED [facility] September 12, 2020 10:30 AM VA-TOBACCO NEVER USED [facility] May 31, 2019 02:48 PM VA-TOBACCO FORMER USER [facility] May 31, 2019 02:48 PM VA-TOBACCO QUIT 5 TO < 15 YRS [facility] Advance Directives: All historical and current Section Date Range: From patient's date of to the date document was created. This section includes ALL of a patient's completed or amended [place] Advance and Rescinded Directives. The entries below indicate that a directive exists for the patient, but an actual copy is not included with this document. The data comes from all [place] facilities. Date Advance Directives Provider Source Apr 24, 2020 ADVANCE DIRECTIVE DWAINE DENT LD Encounter Notes: All associated encounter notes This section contains the clinical notes associated to the Encounter. Date/Time Encounter Note(s) Provider Source Jun 09, 2024 11:36 AM PRIMARY CARE NOTE: LOCAL TITLE: WALK-IN NOTE PRIMARY CARE (T) STANDARD TITLE: PRIMARY CARE NOTE DATE OF NOTE: JUN 09, 2024@11:36 ENTRY DATE: JUN 09, 2024@11:36:50 AUTHOR: STEPHEN SANTILLAN COSIGNER: URGENCY: STATUS: COMPLETED Data: 78year old MALE reports to Primary Care clinic for Walk-In visit. 's PCP is Today Vet walks in to clinic with complaint of chest congestion and dyspnea Last recorded Vital Signs are: Temperature:97.2 F [36.2 C] (06/09/2024 11:36) Pulse:89 (06/09/2024 11:36) Blood Pressure:144//77 (06/09/2024 11:36) Respiration:19 (06/09/2024 11:36) Pain:0 (06/09/2024 11:36) Vet reports current allergies are: Remote Allergy Data No Remote Allergy/ADR Data available for this patient Current Medications from Active Med list include: Active Outpatient Medications (including Supplies): Active Outpatient Medications Status ====== 1) ACCU-CHEK GUIDE (GLUCOSE) TEST STRIP USE 1 STRIP TO TEST ACTIVE BLOOD SUGARS TWO TIMES A WEEK 2) ALBUTEROL 90MCG (CFC-F) 200D ORAL INHL INHALE 2 PUFFS BY ACTIVE MOUTH FOUR TIMES DAILY NEEDED Indication: FOR SHORTNESS OF BREATH 3) AMLODIPINE BESYLATE 5MG TAB TAKE ONE TABLET BY MOUTH ONCE ACTIVE (S) DAILY FOR BLOOD PRESSURE/HEART, DO NOT TAKE WITH GRAPEFRUIT JUICE 4) ESCITALOPRAM OXALATE 10MG TAB TAKE ONE-HALF TABLET BY MOUTH ACTIVE TWICE DAILY FOR MOOD/DEPRESSION Indication: FOR MAJOR DEPRESSIVE DISORDER 5) FLUTICASONE PROP 50MCG 120D NASAL INHL INSTILL 2 SPRAYS INTO ACTIVE EACH NOSTRIL ONCE DAILY MAY DECREASE TO 1 SPRAY/NOSTRIL WHEN CONTROLLED Indication: FOR NASAL IRRITATION/INFLAMMATION 6) LISINOPRIL 10MG TAB TAKE ONE TABLET BY MOUTH ONCE DAILY TO ACTIVE CONTROL BLOOD PRESSURE Indication: FOR HIGH BLOOD PRESSURE 7) OMEPRAZOLE 20MG EC CAP TAKE ONE CAPSULE BY MOUTH TWICE DAILY ACTIVE Indication: FOR GASTROESOPHAGEAL REFLUX DISEASE Pending Outpatient Medications Status ====== 1) ATORVASTATIN CALCIUM 80MG TAB TAKE ONE-HALF TABLET BY MOUTH PENDING ONCE DAILY FOR CHOLESTEROL 2) AZITHROMYCIN 250MG TAB TAKE TWO TABLETS BY MOUTH EVERY PENDING MORNING FOR 1 DAY, THEN TAKE ONE TABLET EVERY MORNING FOR 4 DAYS Indication: ACUTE BRONCHITIS 3) BENZONATATE 100MG CAP TAKE ONE CAPSULE BY MOUTH THREE TIMES PENDING DAILY NEEDED Indication: FOR COUGH 4) FINASTERIDE 5MG TAB TAKE ONE TABLET BY MOUTH ONCE DAILY PENDING NEEDED FOR PROSTATE 5) GUAIFENESIN 600MG SA TAB TAKE ONE TABLET BY MOUTH TWICE PENDING DAILY FOLLOW DOSE WITH FULL GLASS OF WATER Indication: FOR COUGH 6) METFORMIN HCL 500MG 24HR SA TAB TAKE ONE TABLET BY MOUTH PENDING ONCE DAILY FOR 7 DAYS, THEN TAKE TWO TABLETS ONCE DAILY Indication: DIABETES Active Non-VA Medications Status ====== 1) Non-VA CLONAZEPAM 0.5MG TAB 0.5MG BY MOUTH TWICE DAILY ACTIVE NEEDED 2) Non-VA FISH OIL 500MG DHA/EPA CAP,ORAL BY MOUTH ONCE DAILY ACTIVE 3) Non-VA GLUCOSAMINE CAP/TAB 1000MG BY MOUTH ONCE DAILY ACTIVE 4) Non-VA LYSINE CAP/TAB 500MG BY MOUTH ONCE DAILY ACTIVE 5) Non-VA NAPROXEN 500MG TAB 500MG BY MOUTH ONCE DAILY ACTIVE 18 Total Medications Action: Dora reports to sick call with cold symptoms x 1 month. States he started to feel good for about 4 days but then last week the cough and congestion returned Currently states he was diagnosed recently with COPD, Reports some mild increase with GALLEGOS Has home albuterol, states using 1-2 times a day Reports intermittent dizziness but denies currently Cough non productive Denies nausea, vomiting or diarrhea Denies fever or chills Denies headache Denies sore throat Denies smoking Reports able to sleep Reports not drinking enough water/fluids States urine is a darker yellow Home med Albuterol, Flonase and Liss daily at night and guaifenesin all some effect. Skin warm and dry Lungs clear Noted with a tight cough RR 20, even non labored. tongue and lips dry. COVID/FLU/RSV testing completed Discussed findings with Malachi Roe NEWS ASSISTANT. advised Dora to increase fluid intake, rest, continue with OTC medications for symptoms Educated on new orders- advised to start antibiotic and prednisone now. Reviewed instructions. Advised for new or worsening symptoms to go to urgent care or ER. Dora in agreement with plan and verbalized understanding. Test results to be communicated when available. Reminders Info Only: [employer] Video Connect Capable DUE NOW Pneumococcal Conjugate Vaccine (PCV15/PCDUE NOW Primary Care Provider Search DUE NOW PTSD Screening Apr 10 Influenza Immunization DUE NOW Medication Reconciliation DUE NOW COVID-19 Immunization DUE NOW HTN Assess for Elevated BP>=140/90 DUE NOW RSV Immunization DUE NOW (Optional) Whole Health Documentation DUE NOW /harpal/ STEPHEN SANTILLAN BOTTOM STEEP TENDER RN Signed: 06/09/2024 12:00 Receipt Acknowledged By: * AWAITING SIGNATURE * MALACHI ROE ERIC K [place]
--- OUTSIDE RECORDS SUMMARY | 2024-06-22 13:50 | XMS_ITS | Encounter Summary ---
Author Name [facility] [place] [facility] [place] Address [address] [place] [address] Care Team Providers Care Hollow Ware Maker Name Role Phone STEPHON UGARTE Primary Care [...] SUPPLEMEN ANTWAN MEDEX 2 Apr 26, 2017 [id number] MARCIAL VILLAELIO PATIENT ANTHEM BCBS OF CT MEDICARE SUPPLEMEN ANTWAN COH RETIR EMENT Apr 26, 2017 [id number] MARCIAL VILLAELIO PATIENT [place] SUPPLEMEN ANTWAN MEDEX 2 Apr 26, 2017 [id number] [phone] MARCIAL VILLAELIO [place] SUPPLEMEN ANTWAN MEDEX 2 Apr 26, 2017 [id number] MARCIAL VILLAELIO PATIENT [place] SUPPLEMEN ANTWAN MEDEX 2 Apr 26, 2017 [id number] ELIO CORTES PATIENT MEDICARE (WNR) MEDICARE (M) PART A Oct 24, 2012 PART A [id number] ELIO CORTES PATIENT MEDICARE (WNR) MEDICARE (M) PART B Oct 24, 2012 PART B [id number] ELIO CORTES PATIENT MEDICARE (WNR) MEDICARE (M) PART A Oct 24, 2012 PART A [id number] ELIO CORTES PATIENT MEDICARE (WNR) MEDICARE (M) PART B Oct 24, 2012 PART B [id number] ELIO CORTES PATIENT MEDICARE (WNR) MEDICARE (M) PART A Oct 24, 2012 PART A [id number] [phone] ELIO CORTES PATIENT MEDICARE (WNR) MEDICARE (M) PART B Oct 24, 2012 PART B [id number] [phone] ELIO CORTES PATIENT Selected Encounter This section includes the information on record at [place] for the Encounter. 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 Encounter Template Text not used by [place] Assessments - Encounter Diagnoses This section includes the primary and secondary diagnoses documented for the Encounter. Date/Time Primary/Secondary Diagnosis Diagnosis Name Provider Source Jan 23, 2024 09:02 AM PRIMARY Other low back pain BEBETOROCHELLE HENNESSY [place] [facility] [place] [facility] Plan of Treatment: Future Appointments (+ 6 months) and Future Tests (+/- 45 days) The Plan of Treatment section includes future care activities for the patient from all [place] treatmentfacilities. This section includes future appointments and future orders which are active, pending or scheduled. Future Appointments This section includes appointments that were scheduled to occur 6 months from the date of the Encounter, up to a maximum of 20 appointments. The data comes from all [place] treatment facilities. Appointment Date/Time Appointment Type Appointme nt Facility Name Jan 14, 2024 02:30 PM AM[place]ULATORY [place]ICINE [place] [facility] [place] [facility] Jan 18, 2024 11:30 AM AMBULATORY - MEDICINE [facility] [place] Feb 24, 2024 02:30 PM AMBULATORY [place]ICINE [place] [facility] [place] [facility] Apr 11, 2024 02:00 PM AMBULATORY - [place]ICINE [place] [facility] [place] [facility] Jun 06, 2024 11:00 AM AMBULATORY - MEDICINE [facility] [place] Jun 08, 2024 03:30 PM AM[place]UL[place]ORY - [place]ICINE [place] [facility] [place] [facility] Jun 09, 2024 11:15 AM AMBULATORY - MEDICINE [facility] [place] Active, Pending, and Scheduled Orders This section includes a listing of several types of active, pending, and scheduled orders, including clinic medications orders, diagnostic test orders, procedure orders and consult orders; where the start date of the order is 45 days before the date of the Encounter or 45 days after the date of theEncounter. The data comes from all [place] treatment facilities. Test Date/Time Test Type Test Details Facility Name Jan 06, 2024 04:17 PM Consult Order ACUPUNCTUR E/NHM OUTPT Cons Industry Operations Investigator's Choice [place] [facility] Advance Directives: All historical and current Section Date Range: From patient's date of to the date document was created. This section includes ALL of a patient's completed or amended [place] Advance and Rescinded Directives. The entries below indicate that a directive exists for the patient, but an actual copy is not included with this document. The data comes from all [place] facilities. Date Advance Directives Provider Source Apr 24, 2020 ADVANCE DIRECTIVE DWAINE DENT Encounter Notes: All associated encounter notes This section contains the clinical notes associated to the Encounter. 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 04/16/2020 TORITO,STEPHON Hypercholesterolemia E78.00 04/16/2020TORITO,STEPHON Hypertension I10. 09/12/2020 TORITO,STEPHON CoManagement R69. 04/16/2020TORITO,STEPHON Anxiety disorder F41.1 10/23/2022 0 Past Surgeries: HX prostate cancer Patient [facility] to [place] [facility] with report of some improvement since the last visit. He C/O soreness in low back, right side. The pain in his R hamstring has decr Vet states that he stopped using sugar and hopes to decr his weight. Quality: ache and intermittent Vet rates the pain on the NPRS 6-7/10 Provocative: walking >2 minutes; occasional hiking with a cane Onset: years ago One day when he was in the service he was playing football he was hit hard and had back pain that comes and goes. 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 Ortho surgeon ordered x- rays and recommended PT which he did and received no benefit. Exercise/Activities: Weight lifts at [employer] and he walks regularly. GOALS: walk w/o pain weight lifting w/o pain Vet anticipates Hypnosis at this [place] for weight loss. Reviewed Radiologist's reports: none [...] and station unremarkable. AAOx3, speech is fluent. Ajvier's: Neg bilat Rhombergs no sway General exam [...] Supine gluteal stretching as per palpation Objectives 01/06/24 decr tenderness over R biceps femoris, lumbar [...] avoidance of aggravating factors. Self-Care Recommendations: continue modify Plank to engage gluteal mm.; trial eliminate forward flexion w weight ~Patient encouraged to engage in activities such [...] should be explored to the extent possible. Provided patient with Yoga flyer ~ Activity such as Yoga encouraged to enhance relaxation, flexibility, posture, core stability, balance, and pain modulation. Plan: Patient asks if he should be taking vitamins. He agrees to consult Face Burler. He also asks for recommendation to Acu to help decr overeating. Visit 4 F/U 4 weekly Seek urgent care as needed. CMT: chiropractic manipulative therapy SMT: Spinal Manipulative Therapy F/D: Flexion Distraction MFR: Myofascial Release S-I: Sacroiliac MFTP: Myofascial Trigger Point NRS: Numeric Rating Scale N/T: Numbness/Tingling PIR: Post isometric relaxation /es/ ROCHELLE TATE [place] CHIROPRACTOR Signed: 01/06/2024 15:48 ROCHELLE TATE [facility]
--- OUTSIDE RECORDS SUMMARY | 2024-06-22 13:50 | XMS_ITS | Encounter Summary ---
Author Name [facility] [place] [facility] [place] Organization [facility] [place] [place] Address [address] [place] [address] Care Team Providers Care Sales Marketing Manager Name Role Phone STEPHON UGARTE Primary Care [...] Hardy's Name Patient's Relationship to Policy Hardy ANTHEM BCBS OF [place] MEDICARE SUPPLEMEN ANTWAN MEDEX 2 Apr 26, 2017 [id number] MARCIAL VILLAELIO PATIENT ANTHEM BCBS OF CT MEDICARE SUPPLEMEN ANTWAN COH RETIR EMENT Apr 26, 2017 [id number] [phone] ELIO CORTES PATIENT [place]BS [place] MEDICARE SUPPLEMEN ANTWAN MEDEX 2 Apr 26, 2017 [id number] MARCIAL DAISYELIO PATIENT [place] MED[place] SUPPLEMEN ANTWAN MEDEX 2 Apr 26, 2017 [id number] MARCIAL VILLAELIO PATIENT [place] MED[place] SUPPLEMEN ANTWAN MEDEX 2 Apr 26, 2017 [id number] ELIO CORTES PATIENT MEDICARE (WNR) MEDICARE (M) PART A Oct 24, 2012 PART A [id number] [phone] ELIO CORTES PATIENT MEDICARE (WNR) MEDICARE (M) PART B Oct 24, 2012 PART B [id number] ELIO CORTES PATIENT MEDICARE (WNR) MEDICARE (M) PART A Oct 24, 2012 PART A [id number] [phone] ELIO CORTES PATIENT MEDICARE (WNR) MEDICARE (M) PART B Oct 24, 2012 PART B [id number] [phone] ELIO CORTES PATIENT MEDICARE (WNR) MEDICARE (M) PART A Oct 24, 2012 PART A [id number] ELIO CORTES PATIENT MEDICARE (WNR) MEDICARE (M) PART B Oct 24, 2012 PART B [id number] ELIO CORTES PATIENT Selected Encounter This section includes the information on record at [place] for the Encounter. Date/Time Encounter Type Encounter Description Reason Pro vider Source Jun 09, 2024 11:21 AM Outpatient Encounter PRIMARY CARE/MEDICINE IHE Encounter Template Text not used by [place] Plan of Treatment: Future Appointments (+ 6 months) and Future Tests (+/- 45 days) The Plan of Treatment section includes future care activities for the patient from all [place] treatmentfacilities. This section includes future appointments and future orders which are active, pending or scheduled. Future Appointments This section includes appointments that were scheduled to occur 6 months from the date of the Encounter, up to a maximum of 20 appointments. The data comes from all [place] treatment facilities. Appointment Date/Time Appointment Type Appointme nt Facility Name Oct 10, 2024 11:00 AM [facility]BULATORY - [facility]IC[facility] Oct 23, 2024 01:00 PM [facility] - [facility]IC[facility] Active, Pending, [...] of theEncounter. The data comes from all [place] treatment facilities. Test Date/Time Test Type Test Details Facility Name Jun 09, 2024 12:00 AM Laboratory - Chemi stry Order BASIC METABOLIC PANEL (non-fasting) BLOOD (SST-SERUM) [facility] Jun 09, 2024 12:00 AM Laboratory - Chemi stry Order HEMOGLOBIN A1C PANEL BLOOD (LAV-BLOOD) [facility] Jun 09, 2024 12:00 AM Laboratory - Chemi stry Order MICROALBUMIN CREATININE RATIO PANEL URINE (RANDOM) [facility] Jun 09, 2024 12:00 AM Laboratory - Chemi stry Order CBC BLOOD (LAV-BLOOD) [facility] Jun 09, 2024 12:00 AM Laboratory - Chemi stry Order LIVER FUNCTION BLOOD (SST-SERUM) [facility] Jun 09, 2024 12:00 AM Laboratory - Chemi stry Order LIPID PANEL, NON FASTING BLOOD (SST-SERUM) [facility] Lab Results: +/- 30 days of the encounter This section includes the Chemistry and Hematology Lab Results on record with [place] for the patient. Radiology Reports and Pathology Reports are provided separately, in subsequent sections. Lab Results This section contains the Chemistry/Hematology Results that were resulted 30 days before or 30 daysafter the date of the Encounter. Date/Time Source Result Type Result - Unit Interpretation Reference Range Comment Jun 09, 2024 11:41 AM [place] COVID-19 FLU/RSV DIAGNOSTIC PANEL Speci men Type: NASOPHARYNX Comment: This test is authorized for emergency use only. False negative results may occur if virus is present at levels below the analytical limit of detection.Nega tive results do not preclude SARS-CoV-2, influenza or RSV infection and should not be used as the sole basis for treatment or other patient management decisions.[facility] guillermo FLUVID: HCPs: https://www.fd a.gov/media2434/download. Patients: https://www.fd a.gov/media2435/download Ordering Provider: MALACHI MORALES Report Released Date/Time: Jun 09, 2024 11:33 AM Reporting Lab: [place] LARRY KENDALL [address] [address] Performing Lab: [place] [facility] [address] [address] COVID-19 PCR (FLUVID) NEGATIVE NEGATIVE FLU A PCR (FLUVID) POSITIVE FLU B PCR (FLUVID) NEGATIVE RSV PCR (FLUVID) NEGATIVE Advance Directives: All historical and current Section Date Range: From patient's date of to the date document was created. This section includes ALL of a patient's completed or amended [place] Advance and Rescinded Directives. The entries below indicate that a directive exists for the patient, but an actual copy is not included with this document. The data comes from all [place] facilities. Date Advance Directives Provider Source Apr 24, 2020 ADVANCE DIRECTIVE DWAINE DENT Encounter Notes: All associated encounter notes This section contains the clinical notes associated to the Encounter. Date/Time Encounter Note(s) Provider Source Jun 09, 2024 11:21 AM PRIMARY CARE NOTE: LOCAL TITLE: WALK-IN NOTE PRIMARY CARE (T) STANDARD TITLE: PRIMARY CARE NOTE DATE OF NOTE: JUN 09, 2024@11:21 ENTRY DATE: JUN 09, 2024@11:21:46 AUTHOR: DELVIN MENENDEZ EXP COSIGNER: URGENCY: STATUS: COMPLETED <====Click to Start Advanced Medical Support [place] presents to the Primary Care clinic with the following request: [ ]Medication Renewal/Refill [ ]Consultation with Team RN [ X ]Symptoms [ ]Other The states they are: [ X ]Waiting [ ]Not Waiting Yes Walk in visit scheduled with PACT Nurse [ X ] At this encounter the [place]'s demographics were verified. [ X ] At this encounter the 's Insurance information was verified. [ X ] At this encounter the below scheduled visits for the [place] were discussed and appointment reminder card was offered. 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
--- OUTSIDE RECORDS SUMMARY | 2024-06-22 13:50 | XMS_ITS | Encounter Summary ---
Author Name [facility] [place] Organization [facility] [place] Address [address] [place] [address] Care Team Providers Care Supervisor Education Name Role Phone STEPHON UGARTE Primary Care [...] SUPPLEMEN ANTWAN MEDEX 2 Apr 26, 2017 [id number] MARCIAL VILLAELIO PATIENT ANTHEM BCBS OF CT MEDICARE SUPPLEMEN ANTWAN COH RETIR EMENT Apr 26, 2017 [id number] MARCIAL VILLAELIO PATIENT [place] MED[place] SUPPLEMEN ANTWAN MEDEX 2 Apr 26, 2017 [id number] MARCIAL VILL[place]LE[place] ANTWAN MEDEX 2 Apr 26, 2017 [id number] [phone] MARCIAL VILLAEL[place] SUPPLEMEN ANTWAN MEDEX 2 Apr 26, 2017 [id number] [phone] ELIO CORTES PATIENT MEDICARE (WNR) MEDICARE (M) PART A Oct 24, 2012 PART A [id number] [phone] ELIO CORTES PATIENT MEDICARE (WNR) MEDICARE (M) PART A Oct 24, 2012 PART A [id number] ELIO CORTES PATIENT MEDICARE (WNR) MEDICARE (M) PART B Oct 24, 2012 PART B [id number] [place] PATIENT MEDICARE (WNR) MEDICARE (M) PART A Oct 24, 2012 PART A [id number] [phone] ELIO CORTES PATIENT MEDICARE (WNR) MEDICARE (M) PART B Oct 24, 2012 PART B [id number] [phone] ELIO CORTES PATIENT MEDICARE (WNR) MEDICARE (M) PART B Oct 24, 2012 PART B [id number] ELIO CORTES PATIENT Selected Encounter This section includes the information on record at [place] for the Encounter. Date/Time Encounter Type Encounter Description Reason Provider Source Dec 31, 2023 02:00 PM MECHANICAL TRACTION THERAPY STUDY MANAGER ICD-10-CM M54.59 Other low back pain ROCHELLE TATE [facility] Encounter Template Text not used by [place] Assessments - Encounter Diagnoses This section includes the primary and secondary diagnoses documented for the Encounter. Date/Time Primary/Secondary Diagnosis Diagnosis Name Provider Source Jan 14, 2024 01:11 PM PRIMARY Other low back pain BEBETOROCHELLE HENNESSY [place] [facility] [place] [facility] Plan of Treatment: Future Appointments (+ [...] Appointment Type Appointme nt Facility Name Jan 06, 2024 03:00 PM AMBULATORY - MEDICINE [place] [facility] [place] [facility] Jan 14, 2024 02:30 PM AMBULATORY - MEDICINE [place] [facility] [place] [facility] Jan 18, 2024 11:30 AM [facility]ORY - [facility]IC[facility] Feb 24, 2024 02:30 PM AMBULATORY - MEDICINE [place] [facility] [place] [facility] Apr 11, 2024 02:00 PM AMBULATORY - MEDICINE [place] [facility] [place] [facility] Jun 06, 2024 11:00 AM AMBULATORY - [facility]ICINE [facility] [place] Jun 08, 2024 03:30 PM AMBULATORY - MEDICINE [place] [facility] [place] [facility] Jun 09, 2024 11:15 AM [facility] Active, Pending, and Scheduled Orders This section includes a listing of several types of active, pending, and scheduled orders, including clinic medications orders, diagnostic test orders, procedure orders and consult orders; where the start date of the order is 45 days before the date of the Encounter or 45 days after the date of theEncounter. The data comes from all [place] treatment facilities. Test Date/Time Test Type Test Details Facility Name Jan 06, 2024 04:17 PM Consult Order ACUPUNCTUR E/NHM OUTPT Cons Party Plan Salesperson's Choice [place] [facility] Advance Directives: All historical and current Section Date Range: From patient's date of to the date document was created. This section includes ALL of a patient's completed or amended [place] Advance and Rescinded Directives. The entries below indicate that a directive exists for the patient, but an actual copy is not included with this document. The data comes from all [place] facilities. Date Advance Directives Provider Source Apr 24, 2020 ADVANCE DIRECTIVE DWAINE DENT Encounter Notes: All associated encounter notes This section contains the clinical notes associated to the Encounter. Date/Time Encounter Note(s) Provider Source Dec 31, 2023 01:48 PM CHIROPRACTIC NOTE: LOCAL TITLE: CHIROPRACTOR PROGRESS NOTE STANDARD TITLE: CHIROPRACTIC NOTE DATE OF NOTE: DEC 31, 2023@13:48 ENTRY DATE: DEC 31, 2023@13:48:57 AUTHOR: ROCHELLE TATE EXP COSIGNER: URGENCY: STATUS: COMPLETED LIZ,ELIO is a 78 WHITE MALE with prior history of COMBAT SERVICE INDICATED: No POS: PERIOD OF SERVICE - OTHER OR NONE SERVICE BRANCH: [employer] Connected Disabilities with % Eligibility: Active Problem Attention deficit hyperactivity dis 10/23/2022 STEPHON UGARTE Prediabetes R73.03 07/06/2022 TORITO,STEPHON Chronic Kidney Disease Stage 3B (SC 10/30/2020 TORITO,STEPHON Gastroesophageal reflux disease wit 09/12/2020 TORITO,STEPHON Prostate cancer C61. 04/16/2020 TORITO,STEPHON Hypercholesterolemia E78.00 04/16/2020 TORITO,STEPHON Hypertension I10. 09/12/2020 TORITO,STEPHON CoManagement R69. 04/16/2020TORITO,STEPHON Anxiety disorder F41.1 10/23/2022 0 Past Surgeries: HX prostate cancer Patient presents to [place] [facility] with report of improvement since the last visit. He C/O soreness in is R wrist and forearm that he thinks may be from pressing down on a cane. The pain in his R hamstring has decr and there is less C/C of bilat low back pain. Ths last treatment helped. Vet states that he stopped using sugar [...] it hurts Prior treatment: years ago Prior care services manager: years ago and it did not help. Ortho surgeon ordered x- rays and recommended PT which he did and received no benefit. Exercise/Activities: Weight lifts at [employer] and he walks regularly. GOALS: walk w/o [...] Supine gluteal stretching as per palpation Objectives 12/31/23 decr tenderness over R biceps femoris, lumbar [...] core stability, balance, and pain modulation. Plan: trial chiro Visit 3 F/U 4 weekly Seek urgent care as needed. CMT: chiropractic manipulative therapy SMT: Spinal Manipulative Therapy F/D: Flexion Distraction MFR: Myofascial Release S-I: Sacroiliac MFTP: Myofascial Trigger Point NRS: Numeric Rating Scale N/T: Numbness/Tingling PIR: Post isometric relaxation /es/ ROCHELLE TATE [facility] CHIROPRACTOR Signed: 12/31/2023 14:47 ROCHELLE TATE [facility]
--- OUTSIDE RECORDS SUMMARY | 2024-06-22 13:50 | XMS_ITS | Encounter Summary ---
Author Name [facility] [place] Organization [place] Address [address] [place] [address] Care Team Providers Care Youth Manager Name Role Phone STEPHON UGARTE Primary [...] SUPPLEMEN ANTWAN MEDEX 2 Apr 26, 2017 [id number] MARCIAL VILLAELIO PATIENT ANTHEM BCBS OF CT MEDICARE SUPPLEMEN ANTWAN COH RETIR EMENT Apr 26, 2017 [id number] [phone] MARCIAL VILLAELIO PATIENT [place]BS [place] MEDICARE SUPPLEMEN ANTWAN MEDEX 2 Apr 26, 2017 [id number] MARCIAL VILLAELIO PATIENT [place] SUPPLEMEN ANTWAN MEDEX 2 Apr 26, 2017 [id number] MARCIAL VILLAELIO PATIENT [place] MED[place] SUPPLEMEN ANTWAN MEDEX 2 Apr 26, 2017 [id number] ELIO CORTES PATIENT MEDICARE (WNR) MEDICARE (M) PART A Oct 24, 2012 PART A [id number] ELIO CORTES PATIENT MEDICARE (WNR) MEDICARE (M) PART B Oct 24, 2012 PART B [id number] ELIO CORTES PATIENT MEDICARE (WNR) MEDICARE (M) PART B Oct 24, 2012 PART B [id number] [phone] ELIO CORTES PATIENT MEDICARE (WNR) MEDICARE (M) PART A Oct 24, 2012 PART A [id number] ELIO CORTES PATIENT MEDICARE (WNR) MEDICARE (M) PART A Oct 24, 2012 PART A [id number] ELIO CORTES PATIENT MEDICARE (WNR) MEDICARE (M) PART B Oct 24, 2012 PART B [id number] [phone] ELIO CORTES PATIENT Selected Encounter This section includes the information on record at [place] for the Encounter. Date/Time Encounter Type Encounter Description Reason Provider Source Jan 14, 2024 02:30 PM MECHANICAL TRACTION THERAPY HABILITATION ASSISTANT ICD-10-CM M54.59 Other low back pain ROCHELLE TATE [facility] Encounter Template Text not used by [place] Assessments - Encounter Diagnoses This section includes the primary and secondary diagnoses documented for the Encounter. Date/Time Primary/Secondary Diagnosis Diagnosis Name Provider Source Feb 01, 2024 01:39 PM PRIMARY Other low back pain BEBETOROCHELLE HENNESSY [place] [facility] [place] [facility] Plan of Treatment: Future Appointments (+ 6 months) and Future Tests (+/- 45 days) The Plan of Treatment section includes future care activities for the patient from all [place] treatmentfacilities. This section includes future appointments and future orders which are active, pending or scheduled. Future Appointments This section includes appointments that were scheduled to occur 6 months from the date of the Encounter, up to a maximum of 20 appointments. The data comes from all [place] treatment facilities. Appointment Date/Time Appointment Type Appointme nt Facility Name Jan 18, 2024 11:30 AM [facility] Feb 24, 2024 02:30 PM [facility] Apr 11, 2024 02:00 PM [facility]UL[facility]ORY [facility] [place] [facility] Jun 06, 2024 11:00 AM [facility] Jun 08, 2024 03:30 PM [facility] Jun 09, 2024 11:15 AM AM[facility]ULATORY [facility]INE [facility] Active, Pending, and Scheduled Orders This section includes a listing of several types of active, pending, and scheduled orders, including clinic medications orders, diagnostic test orders, procedure orders and consult orders; where the start date of the order is 45 days before the date of the Encounter or 45 days after the date of theEncounter. The data comes from all [place] treatment facilities. Test Date/Time Test Type Test Details Facility Name Jan 06, 2024 04:17 PM Consult Order ACUPUNCTUR E/NHM OUTPT Cons [facility] [place] [facility] Advance Directives: All historical and current Section Date Range: From patient's date of to the date document was created. This section includes ALL of a patient's completed or amended [place] Advance and Rescinded Directives. The entries below indicate that a directive exists for the patient, but an actual copy is not included with this document. The data comes from all [place] facilities. Date Advance Directives Provider Source Apr [...] ARSENIO INMAN EXP COSIGNER: URGENCY: STATUS: COMPLETED returned call and left voice mail on Acupuncture/Chiropractic line. Please return call to at [phone] /harpal/ ARSENIO GALVEZ Signed: 03/22/2024 09:58 Receipt Acknowledged By: 03/29/2024 09:16 /harpal/ ROCHELLE TATE [facility]. CHIROPRACTOR --- Original Document --- 03/21/24 TELEPHONE NOTE/CHIROPRACTOR: called to speak to patient and left a RAULITO /harpal/ ROCHELLE TATE D.[facility]. CHIROPRACTOR Signed: 03/21/2024 16:13 [facility]ENIO INMAN [facility] Mar 21, 2024 04:12 PM CHIROPRACTIC TELEPHONE ENCOUNTER NOTE: LOCAL TITLE: TELEPHONE NOTE/CHIROPRACTOR STANDARD TITLE: CHIROPRACTIC TELEPHONE ENCOUNTER NOTE DATE OF NOTE: MAR 21, 2024@16:12 ENTRY DATE: MAR 21, 2024@16:13:01 AUTHOR: ROCHELLE TATE EXP COSIGNER: URGENCY: STATUS: COMPLETED TELEPHONE NOTE/CHIROPRACTOR Has ADDENDA called to speak to patient and left a RAULITO /harpal/ ROCHELLE TTAE D.[facility]. CHIROPRACTOR Signed: 03/21/2024 16:13 03/22/2024 ADDENDUM STATUS: COMPLETED returned call and left voice mail on Acupuncture/Chiropractic line. Please return call to [place] at [phone] /harpal/ ARSENIO INMAN [facility] Signed: 03/22/2024 09:58 Receipt Acknowledged By: * AWAITING SIGNATURE * ROCHELLE TATE [facility] Jan 14, 2024 02:36 PM CHIROPRACTIC NOTE: [...] hyperactivity dis 10/23/2022 TORITO,STEPHON Prediabetes R73.03 07/06/2022 TORITO,STEPHON Chronic Kidney Disease Stage 3B (SC 10/30/2020 TORITO,STEPHON Gastroesophageal reflux disease wit 09/12/2020 TORITO,STEPHON Prostate cancer C61. 04/16/2020TORITO,STEPHON Hypercholesterolemia E78.00 04/16/2020TORITO,STEPHON Hypertension I10. 09/12/2020TORITO,STEPHON CoManagement R69. 04/16/2020TORITO,STEPHON Anxiety disorder F41.1 10/23/2022 0 Past Surgeries: HX prostate cancer Patient presents to [place] [facility] with report that he felt well but he went to the [employer] yesterday and he walked a lot. He [...] it hurts Prior treatment: years ago Prior patient care assistant: years ago and it did not help. Ortho surgeon ordered x- rays and recommended PT which he did and received no benefit. Exercise/Activities: Weight lifts at [employer] and he walks regularly. GOALS: walk w/o pain weight lifting w/o pain Vet anticipates Hypnosis at this [place] for weight loss. Reviewed Radiologist's reports: none [...] his gym. Take breaks from walking at [employer] tomorrow. Follow w Music Teacher ~Patient encouraged to engage in activities such [...] and pain modulation. Plan: Pending visit with Music Teacher. Consult BFA. Visit 5 F/U 4 weekly Seek urgent care as needed. CMT: chiropractic manipulative therapy SMT: Spinal Manipulative Therapy F/D: Flexion Distraction MFR: Myofascial Release S-I: Sacroiliac MFTP: Myofascial Trigger Point NRS: Numeric Rating Scale N/T: Numbness/Tingling PIR: Post isometric relaxation /es/ ROCHELLE TATE [facility]. CHIROPRACTOR Signed: 01/14/2024 15:00 ROCHELLE TATE [facility]
--- OUTSIDE RECORDS SUMMARY | 2024-06-22 13:50 | XMS_ITS | Encounter Summary ---
Author Name [facility] Organization [facility] [place] Address [address] [place] [address] Care Team Providers Care Tube Carrier Name Role Phone STEPHON UGARTE Primary Care [...] SUPPLEMEN ANTWAN MEDEX 2 Apr 26, 2017 [id number] [phone] ELIO CORTES PATIENT ANTHEM BCBS OF CT MEDICARE SUPPLEMEN ANTWAN COH RETIR EMENT Apr 26, 2017 [id number] ELIO CORTES [place] SUPPLEMEN ANTWAN MEDEX 2 Apr 26, 2017 [id number] [phone] ELIO [place]ORT[place] SUPPLEMEN ANTWAN MEDEX 2 Apr 26, 2017 [id number] [phone] ELIO CORT[place] SUPPLEMEN ANTWAN MEDEX 2 Apr 26, 2017 [id number] ELIO CORTES PATIENT MEDICARE (WNR) MEDICARE (M) PART A Oct 24, 2012 PART A [id number] ELIO CORTES PATIENT MEDICARE (WNR) MEDICARE (M) PART B Oct 24, 2012 PART B [id number] ELIO CORTES PATIENT MEDICARE (WNR) MEDICARE (M) PART B Oct 24, 2012 PART B [id number] [phone] ELIO OCRTES PATIENT MEDICARE (WNR) MEDICARE (M) PART A Oct 24, 2012 PART A [id number] ELIO CORTES PATIENT MEDICARE (WNR) MEDICARE (M) PART A Oct 24, 2012 PART A [id number] [phone] ELIO CORTES PATIENT MEDICARE (WNR) MEDICARE (M) PART B Oct 24, 2012 PART B [id number] [phone] ELIO CORTES PATIENT Selected Encounter This section includes the information on record at [place] for the Encounter. Date/Time Encounter Type Encounter Description Reason Pro vider Source Feb 18, 2024 08:28 AM Outpatient Encounter ADMIN PAT ACTIVTIES (MASNONCT) I[facility] Encounter Template Text not used by [place] Plan of Treatment: Future Appointments (+ 6 months) and Future Tests (+/- 45 days) The Plan of Treatment section includes future care activities for the patient from all [place] treatmentfacilities. This section includes future appointments and future orders which are active, pending or scheduled. Future Appointments This section includes appointments that were scheduled to occur 6 months from the date of the Encounter, up to a maximum of 20 appointments. The data comes from all [place] treatment facilities. Appointment Date/Time Appointment Type Appointme nt Facility Name Feb 24, 2024 02:30 PM AMBULATORY [place]ICINE [place] [facility] [place] [facility] Apr 11, 2024 02:00 PM AMBULATORY - MEDICINE [place] [facility] [place] [facility] Jun 06, 2024 11:00 AM AMBULATORY - MEDICINE [facility] Jun 08, 2024 03:30 PM [facility] Jun 09, 2024 11:15 AM AMBULATORY - MEDICINE [facility] Active, [...] of theEncounter. The data comes from all [place] treatment facilities. Test Date/Time Test Type Test Details Facility Name Jan 06, 2024 04:17 PM Consult Order ACUPUNCTUR E/NHM OUTPT Cons Cheese Grader's Choice [facility] Advance Directives: All historical and current Section Date Range: From patient's date of to the date document was created. This section includes ALL of a patient's completed or amended [place] Advance and Rescinded Directives. The entries below indicate that a directive exists for the patient, but an actual copy is not included with this document. The data comes from all [place] facilities. Date Advance Directives Provider Source Apr 24, 2020 ADVANCE DIRECTIVE DWAINE DENT Encounter Notes: All associated encounter notes This section contains the clinical notes associated to the Encounter. Date/Time Encounter Note(s) Provider Source Feb 18, 2024 08:28 AM PHARMACY NOTE: LOCAL TITLE: PHARMACY CUSTOMER CARE MEDICATION RENEWAL STANDARD TITLE: PHARMACY NOTE DATE OF NOTE: FEB 18, 2024@08:28 ENTRY DATE: FEB 18, 2024@08:28:36 AUTHOR: PAGE WINSTON COSIGNER: URGENCY: STATUS: COMPLETED Date: Jan Division: [place] [facility] referred by Pharmacy Call Center for medication renewal: Non-controlled/maintenanc e medication Medications requested: [id number] FINASTERIDE 5MG TAB Defer to primary care provider To be mailed . Please review and renew if appropriate. *This note was generated by [facility]/MD Pharmacy Customer Care. If you have any questions or need assistance, do not contact this author. Please refer all questions to your local, on-site pharmacy departments. /harpal/ PAGE WINSTON CPhT GRAIN THRESHER, MD/PHARMACY CUSTOMER CARE Signed: 02/18/2024 08:28 Receipt Acknowledged By: 04/25/2024 14:06 /es/ STEPHON UAGRTE MD PHYSICIAN 02/18/2024 08:51 /es/ VALENTINA CODYN,RN-BC REGISTERED NURSE (RN) [facility]
--- OUTSIDE RECORDS SUMMARY | 2024-06-22 13:50 | XMS_ITS | Patient Health Record ---
Author Organization [facility] Address [address] [place] [address] Care Team Providers Care Power Wheelchair Mechanic Name Role Phone Joanne Bejarano MD Primary Care Provider Abdoulaye Cast [phone] ALLERGIES Allergen (clinical drug ingredient) Drug/Non Drug Allergy documented on EMR Reaction Allergy Type Onset Date Status Penicillin Unknown Drug Allergy Active peanuts (uncoded) Unknown Allergy Ac tive REASON FOR REFERRAL No Information MEDICATIONS Medication SIG (Take, Route, Frequency, Duration) Notes Start Date End Date Status Atorvastatin Calcium 20 MG 1 tablet Orally Once a day for 30 day(s) Active Naproxen Sodium 220 MG 1 tablet with ramona d or milk as needed Orally every 12 hrs Active Lisinopril 5 MG Oral for 90 Ac tive busPIRone HCl 10 MG Oral for 90 Active Omeprazole 40 MG 1 Orally Every morni ng for 30 day(s) 03/30/2023 Active Omeprazole 40 MG 1 every am Orally On a day for 30 day(s) 08/20/2020 Active amLODIPine Besylate 5 MG 1 tablet Orally Once a day Active Finasteride 5 MG 1 tablet Orally Once a day for 30 day(s) Active Lexapro Active Loratadine 10 MG TAKE 1 TABLET BY GOOD DAILY Oral for 30 Not-Taking Gabapentin 300 MG 1 capsule Orally thr ee a day Active Fluorouracil 5 % 1 application Externally Twice a day Not-Takin g Glucosamine 500 MG 2 capsule with a david l Orally Once a day Not-Taking KlonoPIN Active Fluticasone Propionate 50 MCG/ACT SHAKE WELL AND ADMINISTER 1 SPRAY INTO EACH NOSTRIL EVERY MORNING Nasal for 60 Not-Taking IMMUNIZATIONS Vaccine Route Administration Date Status Comme nts Flu vaccine no Preserv 3 and > Unknown 01/11/2017 Admin istered Influenza Unknown 01/25/2020 Administered Influenza Unknown 01/24/2021 Administered SOCIAL HISTORY Tobacco Use: Social History Observation Description Date Details (start date - stop date) Former Smoker NA - NA Sex Assigned At : Social History Observation Description Sex Assigned At Unknown Tobacco Use/Smoking Question Answer Notes Patient is a former smoker How long has it been since you last smoked? > 10 years Alcohol Screen Question Answer Notes Did you have a drink containing alcohol in the p ast year? 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) Active confirmed 773778807 Problem Heartburn (R12) Active confirmed 496598 00 Problem Gastroesophageal reflux disease without esophagitis (K21.9) Active confirmed 324383979 Problem Hiatal hernia (K44.9) Active confirmed 40673587 Problem Gastritis, chronic (K29.50) Active confirmed Chronic gastritis (3916311) Problem Long-term use of aspirin therapy (Z79.82) Active confirmed 886564411 Problem Diarrhea, unspecified type (R19.7) Active confirmed 17883930 Problem Gastroesophageal reflux disease, unspecified whether esophagitis present (K21.9) Active confirmed 017926193 PLAN OF TREATMENT Pending Test Test Name Order Date CRP 08/20/2020 CBC w DIFF 08/20/2020 SED RATE (ESR) 08/20/2020 Celiac Panel 10 08/20/2020 Future Test Test Name Order Date COLONOSCOPY 06/23/2017 UPPER GI ENDOSCOPY 08/20/2020 COLONOSCOPY 08/20/2020 UPPER GI ENDOSCOPY 03/30/2023 Insurance Providers Payer Name Payer Address Payer Phone Subscriber Number Group Number Insured Name Patient Relationship to Insured Coverage Start Date Coverage End Date MEDICARE OF [place] [address] [id number] ELIO MONTOYA Self - patient is the insured [employer] ATTN CLAIMS [address] [place] [phone] [id number] ELIO MONTOYA Self - patient is the insured MEDICAL (GENERAL) HISTORY Medical History History ICD Code Prostate cancer 2016 with radiation jaun tments Denies [place],DM,CVA,Lung disease,renal dise ase HTN Depression Hyperlipidemia Negative ETT in 05/2017 Screening colonoscopy in 200 7---hyperplastic polyps, diverticulosis, internal hemorrhoids Neg. screening colonoscopy in 07/2017 GERD and Carter's esophagus -upper endoscopy in August of 2020 revealed a moderate size hiatal hernia and small area of Carter's esophagus, without dysplasia. Duodenal biopsies were negative for celiac disease and gastric biopsies were negative for H. pylori Colonoscopy in August of 2020 w as negative for inflammatory bowel disease, microscopic colitis, and polyps. 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 Negative gallbladder ultrasound in 2022 Surgical History Surgery Date(Month/Year) Skin cancer removals--basal cell/squamou s cell
--- OUTSIDE RECORDS SUMMARY | 2024-06-22 13:50 | XMS_ITS | Encounter Summary ---
Author Name [facility] [place] [facility] [place] Address [address] [place] [address] Care Team Providers Care Machine Operator Packaging Name Role Phone STEPHON UGARTE Primary Care [...] SUPPLEMEN ANTWAN MEDEX 2 Apr 26, 2017 [id number] ELIO CORTES PATIENT ANTHEM BCBS OF CT MEDICARE SUPPLEMEN ANTWAN COH RETIR EMENT Apr 26, 2017 [id number] ELIO CORTES PATIENT [place] SUPPLEMEN ANTWAN MEDEX 2 Apr 26, 2017 [id number] ELIO CORT[place] SUPPLEMEN ANTWAN MEDEX 2 Apr 26, 2017 [id number] ELIO CORTES [place] SUPPLEMEN ANTWAN MEDEX 2 Apr 26, 2017 [id number] ELIO CORTES PATIENT MEDICARE (WNR) MEDICARE (M) PART A Oct 24, 2012 PART A [id number] [phone] ELIO CORTES PATIENT MEDICARE (WNR) MEDICARE (M) PART B Oct 24, 2012 PART B [id number] ELIO CORTES PATIENT MEDICARE (WNR) MEDICARE (M) PART B Oct 24, 2012 PART B [id number] ELIO CORTES PATIENT MEDICARE (WNR) MEDICARE (M) PART A Oct 24, 2012 PART A [id number] [phone] ELIO CORTES PATIENT MEDICARE (WNR) MEDICARE (M) PART A Oct 24, 2012 PART A [id number] ELIO CORTES PATIENT MEDICARE (WNR) MEDICARE (M) PART B Oct 24, 2012 PART B [id number] ELIO CORTES PATIENT Selected Encounter This section includes the information on record at [place] for the Encounter. Date/Time Encounter Type Encounter Description Reason Provider Source Jun 08, 2024 03:30 PM COMPRE OPH EXAM EST PT 1/> OPTOMETRY ICD-10-CM Z96.1 Presence of intraocular lens DENNIS,KIKI B E Encounter Template Text not used by VA Assessments - Encounter Diagnoses This section includes the primary and secondary diagnoses documented for the Encounter. Date/Time Primary/Secondary Diagnosis Diagnosis Name Provider Source Jun 08, 2024 04:03 PM PRIMARY Presence of intraocular lens MERJOVITA,KIKI B [facility] [place] [facility] Jun 08, 2024 04:03 PM SECONDARY Dry eye syndrome of bilateral lacrimal glands MERHAR,KIKI B [facility] [place] [facility] Jun 08, 2024 04:03 PM SECONDARY Other chronic allergic conjunctivitis MERHAR,KIKI B [facility] [place] [facility] Jun 08, 2024 04:03 PM SECONDARY Regular astigmatism, bilateral MERHAR,KIKI B [facility] [place] [facility] Plan of Treatment: Future Appointments (+ 6 months) and Future Tests (+/- 45 days) The Plan of Treatment section includes future care activities for the patient from [facility] [place] [facility] This section includes future appointments and future orders which are active, pending or scheduled. Future Appointments This section includes appointments that were scheduled to occur 6 months from the date of the Encounter, up to a maximum of 20 appointments. The data comes from all [facility] facilities. Appointment Date/Time Appointment Type Appointme nt Facility Name Jun 09, 2024 11:15 AM [facility]BULATORY - [facility] Oct 10, 2024 11[facility]00 [facility] Oct 23, 2024 01:00 PM [facility] Active, Pending, and Scheduled Orders This section includes a listing of several types of active, pending, and scheduled orders, including clinic medications orders, diagnostic test orders, procedure orders and consult orders; where the start date of the order is 45 days before the date of the Encounter or 45 days after the date of theEncounter. The data comes from all [facility]. Test Date/Time Test Type Test Details Facility Name Jun 09, 2024 12:00 AM Laboratory - Chemi stry Order BASIC METABOLIC PANEL (non-fasting) BLOOD (SST-SERUM) [facility] Jun 09, 2024 12:00 AM Laboratory - Chemi stry Order HEMOGLOBIN A1C PANEL BLOOD (LAV-BLOOD) [facility] 14, 2025 12:00 AM Laboratory - Chemi stry Order MICROALBUMIN CREATININE RATIO PANEL URINE (RANDOM) [facility] Jun 09, 2024 12:00 AM Laboratory - Chemi stry Order CBC BLOOD (LAV-BLOOD) [facility] Jun 09, 2024 12:00 AM Laboratory - Chemi stry Order LIVER FUNCTION BLOOD (SST-SERUM) [facility] 14, 2025 12:00 AM Laboratory - Chemi stry Order LIPID PANEL, NON FASTING BLOOD (SST-SERUM) [facility] Lab Results: +/- 30 days of the encounter This section includes the Chemistry and Hematology Lab Results on record with [place] for the patient. Radiology Reports and Pathology Reports are provided separately, in subsequent sections. Lab Results This section contains the Chemistry/Hematology Results that were resulted 30 days before or 30 daysafter the date of the Encounter. Date/Time Source Result Type Result - Unit Interpretation Reference Range Comment Jun 09, 2024 11:41 AM [place] COVID-19 FLU/RSV DIAGNOSTIC PANEL Speci men Type: NASOPHARYNX Comment: This test is authorized for emergency use only. False negative results may occur if virus is present at levels below the analytical limit of detection.Nega tive results do not preclude SARS-CoV-2, influenza or RSV infection and should not be used as the sole basis for treatment or other patient management decisions.[facility] guillermo FLUVID: HCPs: https://www.[facility] Com a.gov/media2434/download. Patients: https://www.[facility] Com a.gov/media/2435/download Ordering Provider: MALACHI MORALES Report Released Date/Time: Jun 09, 2024 11:33 AM Reporting Lab: [address] [address] Performing Lab: [address] [address] COVID-19 PCR (FLUVID) NEGATIVE NEGATIVE FLU A PCR (FLUVID) POSITIVE FLU B PCR (FLUVID) NEGATIVE RSV PCR (FLUVID) NEGATIVE Advance Directives: All historical and current Section Date Range: From patient's date of to the date document was created. This section includes ALL of a patient's completed or amended [place] Advance and Rescinded Directives. The entries below indicate that a directive exists for the patient, but an actual copy is not included with this document. The data comes from all [place] facilities. Date Advance Directives Provider Source Apr 24, 2020 ADVANCE DIRECTIVE DWAINE DENT Encounter Notes: All associated encounter notes This section contains the clinical notes associated to the Encounter. Date/Time Encounter Note(s) Provider Source Jun 08, 2024 03:28 PM OPTOMETRY NOTE: LOCAL TITLE: OPTOMETRY NOTE STANDARD TITLE: OPTOMETRY NOTE DATE OF NOTE: JUN 08, 2024@15:28 ENTRY DATE: JUN 08, 2024@15:29:15 AUTHOR: KIKI COLLINS EXP COSIGNER: URGENCY: STATUS: COMPLETED 78 WHITE MALE NOT OR Last eye exam: 06/03/23 Reason for Visit/CC: patient here for a comprehensive eye exam. No changes in vision. eyes are itchy - not using eyedrops very much. OHx: pseudophakia OU posterior vitreous detachment OU refractive error OU (-) Pain: (-) MCLEAN: (-) Diplopia: (-) Flashes: (-) Floaters: (-) Amaurosis Fugax/Tia's: (-) Eye Injury: (+) Eye Surgery: CE OU, YAG OD (-) TBI (-) FOHx: MHx: Code Description F90.9 Attention deficit hyperactivity disorder ([facility] [id number]) R73.03 Prediabetes ([facility] [id number]) N18.32 Chronic Kidney Disease Stage 3B ([facility] [id number]) K21.9 Gastroesophageal reflux disease without esophagitis ([facility] [id number]) C61. Prostate cancer ([facility] [id number]) E78.00 Hypercholesterolemia ([facility] [id number]) I10. Hypertension ([facility] [id number]) R69. CoManagement (ICD-10-CM R69.) F41.1 Anxiety disorder ([facility] [id number]) Other: SYSTEMIC MEDICATIONS/OCULAR MEDICATIONS: Active and Recently Outpatient Medications (excluding Supplies): Active Outpatient Medications Status 1) ACCU-CHEK GUIDE (GLUCOSE) TEST STRIP USE [...] NASAL INHL INSTILL 2 SPRAYS INTO ACTIVE (S) EACH NOSTRIL ONCE DAILY MAY DECREASE TO 1 SPRAY/NOSTRIL WHEN CONTROLLED Indication: FOR NASAL IRRITATION/INFLAMMATION 6) LISINOPRIL 10MG TAB TAKE ONE TABLET BY MOUTH ONCE DAILY TO ACTIVE CONTROL BLOOD PRESSURE Indication: FOR HIGH BLOOD PRESSURE 7) OMEPRAZOLE 20MG EC CAP TAKE ONE CAPSULE BY MOUTH TWICE DAILY ACTIVE Indication: FOR GASTROESOPHAGEAL REFLUX DISEASE Inactive Outpatient Medications Status 1) ACCU-CHEK GUIDE ME (GLUCOSE) METER USE METER TO TEST BLOOD SUGARS ONCE DAILY 2) CARBOXYMETHYLCELLULOSE NA 0.5% OPH SOLN INSTILL 1 DROP INTO EACH EYE FOUR TIMES DAILY NEEDED Indication: FOR DRY EYE 3) GABAPENTIN 600MG TAB TAKE ONE-HALF TABLET BY MOUTH TWICE DAILY Indication: FOR NERVE PAIN 4) METFORMIN HCL 500MG 24HR SA TAB TAKE ONE TABLET BY MOUTH ONCE DAILY FOR 7 DAYS, THEN TAKE TWO TABLETS ONCE DAILY Indication: DIABETES Active Non-VA Medications Status 1) Non-VA CLONAZEPAM 0.5MG TAB 0.5MG BY MOUTH TWICE DAILY ACTIVE NEEDED 2) Non-VA FISH OIL 500MG DHA/EPA CAP,ORAL BY MOUTH ONCE DAILY ACTIVE 3) Non-VA GLUCOSAMINE CAP/TAB 1000MG BY MOUTH ONCE DAILY ACTIVE 4) Non-VA LYSINE CAP/TAB 500MG BY MOUTH ONCE DAILY ACTIVE 5) Non-VA NAPROXEN 500MG TAB 500MG BY MOUTH ONCE DAILY ACTIVE 16 Total Medications ALLERGIES: PENICILLIN, PEANUTS LAST BP: 144/77 (12/28/2023 15:16) PERTINENT LABS: HEMOGLOBIN A1C; BLOOD [place]. Date: 10/18/23 11:26 10/13/22 10:25 Test Name Result Units Range HEMOGLOBIN A1C 5.8 H 5.6 % 4.0 - 5.6 Current Rx with last BCVA: OD -0.50 -0.50 x 160 20/20 OS -0.25 -1.25 x 165 20/20 Add: +2.50 DVA ( )sc ( x )cc OD 20/20 OS 20/20-1 Pupils: PERRL (-)APD EOM: Full all meridia OU, (-) pain/diplopia Confrontation Visual Rodriguez: Full all meridia OU Subjective: OD -0.50 -0.50 x 160 20/20 OS plano sph 20/20 Add: +2.50 20/20 OU SLE: Lids/Lashes: dermatochalasis OU Conjunctiva: white and quiet OU Corneas: clear OU Iris: flat and clear OU Anterior Chamber: deep and quiet OU Angles: open OU Lens: PCIOL OU, laser pitting OD TAP @ 3:40pm Mcdermott OD 14 mm Hg OS 14 mm Hg Dilating Drops: 1 gtt 1% Tropicamide OU, 2.5% phenylephrine OU (Pt. ed. on side effects) Vitreous: Syneresis OU, PVD OU C/D (Size and Rim Description) OD 0.40 pink & healthy OS 0.40 pink & healthy Macula OD flat and clear OS flat and clear A/V: normal caliber OU Posterior Pole: clear OU Periphery: Flat and intact (-)holes, tears, detachments 360 OU Assessment/Plan: 1. pseudophakia OU - stable, monitor 2. dry eye OU with chronic allergic conjunctivitis OU - continue artificial tears BID-QID OU prn, also ordering ketotifen BID OU prn 3. regular astigmatism OU - order new bifocals clear and DVO sun RTC 1 year or earlier PRN patient offered and declined printed medication list Medication Reconciliation: Outpatient: Has the patient been taking medications as documented in the EMLR? YES: The patient has been taking medications as documented in the EMLR. Essential Medication List for Review used to complete this medication reconciliation. INCLUDED IN THIS LIST: Alphabetical list of active outpatient prescriptions dispensed from this VA (local) and dispensed from another VA or DoD facility (remote) as well as inpatient orders (local, pending and active), local clinic medications, locally documented non-VA medications, and local prescriptions that have or been discontinued in the past 90 days. - All changes in medications, including all non-VA/Herbal/OTC medications were entered into CPRS. - If there were any medications the patient should no longer take, they were discontinued. - The patient/caregiver was instructed to update this list, discard old lists, and take this list to the next appointment, whether with a VA or non-VA provider. JLV Link Data on this list may not be complete. Please check JLV. Allergies/ADRs (Tool #5) FACILITY ALLERGY/ADR -------- No Remote Allergy/ADR Data available for this patient [facility] [place] [facility] Med Recon NoGlossary (Tool #1) INCLUDED IN THIS LIST: Alphabetical list of active outpatient prescriptions dispensed from this [place] (local) and dispensed from another [place] or [facility] facility (remote) as well as inpatient orders (local pending and active), local clinic medications, locally documented non-VA medications, and local prescriptions that have or been discontinued in the past 90 days. Non-VA Meds Last Documented On: Nov 11, 2022 NOTE The display of VA prescriptions dispensed from another [place] or [facility]D facility (remote) is limited to active outpatient prescription entries matched to National Drug File at the originating site and may not include some items such as investigational drugs, compounds, etc. NOT INCLUDED IN THIS LIST: Medications self-entered by the patient into personal health records (i.e. [employer]) are NOT included in this list. Non-VA medications documented outside this [place], remote inpatient orders (regardless of status) and remote clinic medications are NOT included in this list. The patient and provider must always discuss medications the patient is taking, regardless of where the medication was dispensed or obtained. -------- OUTPT ALBUTEROL 90MCG (CFC-F) 200D ORAL INHL (Status = Active) INHALE 2 PUFFS BY MOUTH FOUR TIMES DAILY NEEDED FOR SHORTNESS OF BREATH Rx# [id number] Last Released: 03/21/24 Qty/Days Supply: Rx Expiration Date: 03/22/25 Refills Remainin Indication: FOR SHORTNESS OF BREATH OUTPT AMLODIPINE BESYLATE 5MG TAB (Status = Active/Suspended) TAKE ONE TABLET BY MOUTH ONCE DAILY FOR BLOOD PRESSURE/HEART, DO NOT TAKE WITH GRAPEFRUIT JUICE Rx# [id number] Last Released: 04/27/24 Qty/Days Supply: Rx Expiration Date: 02/14/25 Refills Remainin OUTPT ATORVASTATIN CALCIUM 80MG TAB (Status = ) TAKE ONE-HALF TABLET BY MOUTH ONCE DAILY FOR CHOLESTEROL Rx# [id number] Last Released: 02/18/24 Qty/Days Supply: Rx Expiration Date: 04/19/24 Refills Remainin OUTPT CARBOXYMETHYLCELLULOSE NA 0.5% OPH SOLN (Status = ) INSTILL 1 DROP INTO EACH EYE FOUR TIMES DAILY NEEDED FOR DRY EYE Rx# [id number] Last Released: 02/18/24 Qty/Days Supply: Rx Expiration Date: 06/03/24 Refills Remainin Indication: FOR DRY EYE Non-VA CLONAZEPAM 0.5MG TAB TAKE ONE TABLET BY MOUTH TWICE DAILY NEEDED OUTPT ESCITALOPRAM OXALATE 10MG TAB (Status = Active) TAKE ONE-HALF TABLET BY MOUTH TWICE DAILY FOR MAJOR DEPRESSIVE DISORDER FOR MOOD/DEPRESSION Rx# [id number] Last Released: 03/01/24 Qty/Days Supply: Rx Expiration Date: 12/23/24 Refills Remainin Indication: FOR MAJOR DEPRESSIVE DISORDER OUTPT FINASTERIDE 5MG TAB (Status = ) TAKE ONE TABLET BY MOUTH ONCE DAILY NEEDED FOR PROSTATE Rx# [id number] Last Released: 02/12/24 Qty/Days Supply: Rx Expiration Date: 04/12/24 Refills Remainin Non-VA FISH OIL 500MG DHA/EPA CAP,ORAL TAKE BY MOUTH ONCE DAILY OUTPT FLUTICASONE PROP 50MCG 120D NASAL INHL (Status = Active/Suspended) INSTILL 2 SPRAYS INTO EACH NOSTRIL ONCE DAILY FOR NASAL IRRITATION/INFLAMMATION MAY DECREASE TO 1 SPRAY/NOSTRIL WHEN CONTROLLED Rx# [id number] Last Released: 02/18/24 Qty/Days Supply: Rx Expiration Date: 06/17/24 Refills Remainin Indication: FOR NASAL IRRITATION/INFLAMMATION OUTPT GABAPENTIN 600MG TAB (Status = ) TAKE ONE-HALF TABLET BY MOUTH TWICE DAILY FOR NERVE PAIN Rx# [id number] Last Released: 02/18/24 Qty/Days Supply: Rx Expiration Date: 05/11/24 Refills Remainin Indication: FOR NERVE PAIN Non-VA GLUCOSAMINE CAP/TAB TAKE 1000MG BY MOUTH ONCE DAILY OUTPT LISINOPRIL 10MG TAB (Status = Active) TAKE ONE TABLET BY MOUTH ONCE DAILY TO CONTROL BLOOD PRESSURE Rx# [id number] Last Released: 04/27/24 Qty/Days Supply: Rx Expiration Date: 10/25/24 Refills Remainin Indication: FOR HIGH BLOOD PRESSURE OUTPT LOSARTAN 25MG TAB (Status = Discontinued) TAKE ONE TABLET BY MOUTH ONCE DAILY FOR BLOOD PRESSURE/HEART STOP LISINOPRIL Rx# [id number] Last Released: 03/17/24 Qty/Days Supply: Rx Expiration Date: 06/14/24 Refills Remainin Indication: FOR HIGH BLOOD PRESSURE Non-VA LYSINE CAP/TAB TAKE ONE TABLET BY MOUTH ONCE DAILY OUTPT METFORMIN HCL 500MG 24HR SA TAB (Status = ) TAKE ONE TABLET BY MOUTH ONCE DAILY FOR 7 DAYS, THEN TAKE TWO TABLETS ONCE DAILY Rx# [id number] Last Released: 02/29/24 Qty/Days Supply: Rx Expiration Date: 05/28/24 Refills Remainin Indication: DIABETES Non-VA NAPROXEN 500MG TAB TAKE ONE TABLET BY MOUTH ONCE DAILY OUTPT OMEPRAZOLE 20MG EC CAP (Status = Discontinued) TAKE ONE CAPSULE BY MOUTH TWICE DAILY FOR GASTROESOPHAGEAL REFLUX DISEASE Rx# [id number] Last Released: 01/26/24 Qty/Days Supply: 180 Rx Expiration Date: 09/23/24 Refills Remainin Indication: FOR GASTROESOPHAGEAL REFLUX DISEASE OUTPT OMEPRAZOLE 20MG EC CAP (Status = Active) TAKE ONE CAPSULE BY MOUTH TWICE DAILY FOR GASTROESOPHAGEAL REFLUX DISEASE Rx# [id number] Last Released: 04/17/24 Qty/Days Supply: [id number] Rx Expiration Date: 04/15/25 Refills Remainin Indication: FOR GASTROESOPHAGEAL REFLUX DISEASE -------- SUPPLIES -------- OUTPT ACCU-CHEK GUIDE (GLUCOSE) TEST STRIP (Status = Active) USE 1 STRIP TO TEST BLOOD SUGARS TWO TIMES A WEEK Rx# [id number] Last Released: 03/01/24 Qty Supply: 50/180 Rx Expiration Date: 02/28/25 Refills Remainin OUTPT ACCU-CHEK GUIDE ME (GLUCOSE) METER (Status = ) USE METER TO TEST BLOOD SUGARS ONCE DAILY Rx# [id number] Last Released: 02/29/24 QtyDays Supply: Rx Expiration Date: 05/28/24 Refills Remainin /harpal/ KIKI COLLINS OD 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
--- OUTSIDE RECORDS SUMMARY | 2024-06-22 13:50 | XMS_ITS | Encounter Summary ---
Author Name [facility] [place] [facility] [place] Address [address] [place] [address] Care Team Providers Care Sr. Director Product Management Name Role Phone STEPHON UGARTE Primary Care [...] SUPPLEMEN ANTWAN MEDEX 2 Apr 26, 2017 [id number] MARCIAL VILLAELIO PATIENT ANTHEM BCBS OF CT MEDICARE SUPPLEMEN ANTWAN COH RETIR EMENT Apr 26, 2017 [id number] MARCIAL VILLAELIO [place] SUPPLEMEN ANTWAN MEDEX 2 Apr 26, 2017 [id number] [phone] ELIO CORTES PAT[place] SUPPLEMEN ANTWAN MEDEX 2 Apr 26, 2017 [id number] [phone] ELIO CORTES [place] SUPPLEMEN ANTWAN MEDEX 2 Apr 26, 2017 [id number] ELIO CORTES PATIENT MEDICARE (WNR) MEDICARE (M) PART A Oct 24, 2012 PART A [id number] ELIO CORTES PATIENT MEDICARE (WNR) MEDICARE (M) PART B Oct 24, 2012 PART B [id number] ELIO CORTES PATIENT MEDICARE (WNR) MEDICARE (M) PART A Oct 24, 2012 PART A [id number] [phone] ELIO CORTES PATIENT MEDICARE (WNR) MEDICARE (M) PART B Oct 24, 2012 PART B [id number] ELIO CORTES PATIENT MEDICARE (WNR) MEDICARE (M) PART A Oct 24, 2012 PART A [id number] [phone] ELIO CORTES PATIENT MEDICARE (WNR) MEDICARE (M) PART B Oct 24, 2012 PART B [id number] ELIO CORTES PATIENT Selected Encounter This section includes the information on record at [place] for the Encounter. Date/Time Encounter Type Encounter Description Reason Provider Source Jan 18, 2024 11:30 AM OFFICE O/P EST LOW 20 MIN PODIATRY ICD-10-CM L60.3 Nail dystrophy MEJIA MARCH J[place] Encounter Template Text not used by [facility] Assessments - Encounter Diagnoses This section includes the primary and secondary diagnoses documented for the Encounter. Date/Time Primary/Secondary Diagnosis Diagnosis Name Provider Source Feb 01, 2024 02:18 PM PRIMARY Nail dystrophy MEJIA MARCH [facility] [place] Feb 01, 2024 02:18 PM SECONDARY Corns and callosities MEJIA MARCH [place] Feb 01, 2024 02:18 PM SECONDARY Ingrowing nail MEJIA MARCH [place] Feb 01, 2024 02:18 PM SECONDARY Pain in left toe(s) MEJIA MARCH Feb 01, 2024 02:18 PM SECONDARY Pain in right foot MEJIA MARCH Feb 01, 2024 02:18 PM SECONDARY Pain in right toe(s) MEJIA MARCH [place] Feb 01, 2024 02:18 PM SECONDARY Peripheral vascular disease, unspecified MEJIA MARCH [place] Plan of Treatment: Future Appointments (+ 6 months) and Future Tests (+/- 45 days) The Plan of Treatment section includes future care activities for the patient from [facility] [place] [facility] This section includes future appointments and future orders which are active, pending or scheduled. Future Appointments This section includes appointments that were scheduled to occur 6 months from the date of the Encounter, up to a maximum of 20 appointments. The data comes from all [place] treatment facilities. Appointment Date/Time Appointment Type Appointme nt Facility Name Feb 24, 2024 02:30 PM [facility] [place] [facility] Apr 11, 2024 02:00 PM [facility] - MEDICINE [facility] [place] [facility] Jun 06, 2024 11:00 AM [facility] Jun 08, 2024 03:30 PM [facility] - MEDICINE [facility] [place] [facility] Jun 09, 2024 11:15 AM AMBULATORY - MEDICINE [facility] Active, Pending, and Scheduled Orders This section includes a listing of several types of active, pending, and scheduled orders, including clinic medications orders, diagnostic test orders, procedure orders and consult orders; where the start date of the order is 45 days before the date of the Encounter or 45 days after the date of theEncounter. The data comes from all [facility]. Test Date/Time Test Type Test Details Facility Name Jan 06, 2024 04:17 PM Consult Order ACUPUNCTUR E/NHM OUTPT Cons Equipment Cleaner And Tester's Choice [place] [facility] Social History: Smoking Status (Most current) and Tobacco Use (All prior to encounter date) This section includes the most current, and the historical, smoking and tobacco- related health factors from the [place] facility where the Encounter took place. Current Smoking Status This section includes the most current smoking, or tobacco-related health factor, from the [place] facility where the Encounter took place. Date/Time Current Smoking Status Comment Facil genet Oct 25, 2023 08:30 AM [place]-TOBACCO NEVER USED [facility] Tobacco Use History This section includes a history of the smoking, or tobacco-related health factors, that were collected on or before the date of the Encounter. The data comes from the [place] facility where the Encounter took place. Date/Time Smoking Status/Tobacco Use Comment F acility Mar 23, 2022 01:30 PM VA-TOBACCO NEVER USED [facility] September 12, 2020 10:30 AM VA-TOBACCO NEVER USED [facility] May 31, 2019 02:48 PM VA-TOBACCO FORMER USER [facility] May 31, 2019 02:48 PM VA-TOBACCO QUIT 5 TO < 15 YRS [facility] Advance Directives: All historical and current Section Date Range: From patient's date of to the date document was created. This section includes ALL of a patient's completed or amended [place] Advance and Rescinded Directives. The entries below indicate that a directive exists for the patient, but an actual copy is not included with this document. The data comes from all [place] facilities. Date Advance Directives Provider Source Apr 24, 2020 ADVANCE DIRECTIVE DWAINE DENT Encounter Notes: All associated encounter notes This section contains the clinical notes associated to the Encounter. Date/Time Encounter Note(s) Provider Source Jan 18, 2024 07:54 AM PODIATRY NOTE: LOCAL TITLE: PODIATRY NOTE STANDARD TITLE: PODIATRY NOTE DATE OF NOTE: JAN 18, 2024@07:54 ENTRY DATE: JAN 18, 2024@07:55:07 AUTHOR: MEJIA MARCH EXP COSIGNER: URGENCY: STATUS: COMPLETED NOTE: HAS RECEIVED BOTH COVID VACCINE DOSES AT [facility] LAST SEEN FOR TREATMENT: 08/24/2023 S: Pt. is a 78 yo alert WDWN CAUC MALE who presents for CONTINUED podiatric care for treatment of a presenting complaint of painful toenails and callus . Patient has been referred by: DR. UGARTE Location of symptoms are: THICK NAILS 3RT & 2ND LT, CORNS:MEDIAL DIPJ 5TH LEFT DIGIT AND LATERAL IPJ RT HALLUX WELL MEDIAL 2ND RT DIGIT WITH ASSOCIATED HT. Onset of symptoms has been several WEEKS due to this being a recurrent condition that has been exacerbating over the past few weeks. Duration of symptoms is daily with periods of exacerbation and remission. Description of symptoms is of an aching burning nature. Contributing factors are: shoes and increased activity. PMH: Active problems - Computerized Problem List is the source for the following: *NOTE: REVIEWED ABOVE NOTING NO CHANGES SINCE PREVIOUS VISIT *PLEASE SEE PROBLEM LIST TEMPLATE FOR COMPLETE LIST NEEDED. Family History: Non-contributory Social History: N/A *DENIES ANY RECENT CHANGES IN MEDS UPON QUESTIONING TODAY-SEE RECONCILIATION PERFORMED THIS DATE BELOW TOBACCO USE = NONE Allergies:PENICILLIN, PEANUTS Previous Surgery/Hospitalization: N/A HEIGHT: WEIGHT: REVIEW OF SYSTEMS: DEFERRED BEING NON-CONTRIBUTORY TO THE CC & I HAVE REVIEWED THE PCP NOTES WELL THE PMH O: DERMATOLOGICAL: Exam reveals skin color & text to be WNL. Temp is diminished warm to cool proximal to distal. There is absence of hair noted. Nails are thickened yellow-brown discolored and displaying flakiness, crumbling, sub- ungual debris and rubor in the affected nail grooves. The affected nails are 3RD RT & 2ND LT. OTHER NAILS ARE ELONGATED. There are superficial painful hyperkeratotic lesions noted at this time located at the following sites: MEDIAL DIPJ 5TH LEFT DIGIT AND LATERAL IPJ RT HALLUX & MEDIAL 2ND RT DIGIT PIPJ. There are no rashes, ulcers, indurations or nodules noted. VASCULAR: Exam reveals PT pulses to be absent non-palpable bilateral & DP PULSES ARE +2 equal & symmetrical bilateral. CFT is <3 sec x 10. There are no superficial varices noted and there is no edema noted. MUSCULOSKELETAL: Exam reveals muscle strength and tone to be equal & symmetrical bilaterally & WNL for an individual of this age and present physical-medical condition. There is pain free ROM at all joints distal to and including the ankle. *NOTE: THERE IS A LLD WITH THE RT > LT, AN HAV RT AND A TAILOR'S BUNION RT WELL A PROMINENCE AT THE BASE OF THE 5TH METATARSAL BILAT LT>RT NEUROLOGICAL: Exam reveals S/D, vibratory, light touch & proprioception sensations to be equal & symmetrical bilaterally & diminished for an individual of this age and present physical-medical status. Protective sensation utilizing a Calmar-Morgan lOg monofilament is 02/10 LEFT & 5/10 RT WITH ABSENCE OF VIBRATORY SENSATION 1ST LEFT MPJ. BIOMECHANICAL: Exam is deferred at this time due to the presence of pain. 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 P: Treatment consists of TRIMMING-reduction of all nails via manual & electric means with excision of the offending nail borders and thinning of the nail plates to the point of imminent bleeding. HYPERKERATOSIS NOTED TODAY -medial dipj 5th left digit. TUBEFOAM DISPENSED FOR RT HALLUX & 5TH LEFT DIGIT WELL. All care rendered without complications & the patient is progressing well after podiatric care this date and will be scheduled for periodic podiatric care in an attempt to prevent future complications due to the underlying medical conditions. Treatment by a non-professional could be extremely hazardous to the patient's wellbeing due to the underlying medical conditions. *DISCUSSED NEW PROTOCOLS AND CALLED RACHAEL TODAY FOR RESCHEDULING I DISCUSSED THE FINDINGS & PLAN WITH PATIENT (UNCHANGED SINCE PREVIOUS VISIT) & PATIENT AGREES AND UNDERSTANDS PLAN RTC: 24 WEEKS FOR NAIL & CALLUS CARE (08/23 @ 11:30) ([facility] ME[facility]-DISCUSSED THE DISRUPTION ON [facility] [facility] AND ARE AT A LOSS TO WHY) Medication Reconciliation: PERFORMED TODAY - SEE BELOW. Outpatient: Has the patient been taking medications as documented in the EMLR? YES: The patient has been taking medications as documented in the EMLR. Essential Medication List for Review used to complete this medication reconciliation. INCLUDED IN THIS LIST: Alphabetical list of active outpatient prescriptions dispensed from this [place] (local) and dispensed from another [place] or [facility] facility (remote) as well as [...] Remote Allergy/ADR Data available for this patient [place] [facility] [place] [facility] PENICILL[place] Med Recon NoGlossary (Tool #1) INCLUDED IN THIS LIST: Alphabetical list of active outpatient prescriptions dispensed from this [place] (local) and dispensed from another [place] or [facility] facility (remote) as well as inpatient orders (local pending and active), local clinic medications, locally documented non-VA medications, and local prescriptions that have or been discontinued in the past 90 days. Non-VA Meds Last Documented On: Nov 11, 2022 NOTE The display of VA prescriptions dispensed from another [place] or [facility] facility (remote) is limited to active outpatient prescription entries matched to National Drug File at the originating site and may not include some items such as investigational drugs, compounds, etc. NOT INCLUDED IN THIS LIST: Medications self-entered by the patient into personal health records (i.e. [employer]) are NOT included in this list. Non-VA medications documented outside this [place], remote inpatient orders (regardless of status) and remote clinic medications are NOT included in this list. The patient and provider must always discuss medications the patient is taking, regardless of where the medication was dispensed or obtained. OUTPT AMLODIPINE BESYLATE 5MG TAB (Status = Active) TAKE ONE TABLET BY MOUTH ONCE DAILY FOR BLOOD PRESSURE/HEART, DO NOT TAKE WITH GRAPEFRUIT JUICE Rx# [id number] Last Released: 11/09/23 Qty/Days Supply: Rx Expiration Date: 02/12/24 Refills Remainin OUTPT ATORVASTATIN CALCIUM 80MG TAB (Status = Active) TAKE ONE-HALF TABLET BY MOUTH ONCE DAILY FOR CHOLESTEROL Rx# [id number] Last Released: 10/20/23 Qty/Days Supply: 45/ Rx Expiration Date: 04/19/24 Refills Remainin OUTPT BETAMETHASONE DIPRO AUGMENT 0.05% CREAM (Status = ) APPLY DIRECTED TOPICALLY TWICE DAILY FOR 2 WEEKS, STOP FOR 1 WEEK FOR ITCHING/RASH Rx# [id number] Last Released: 10/25/23 Qty/Days Supply: 5014 Rx Expiration Date: 11/24/23 Refills Remainin Indication: FOR ATOPIC DERMATITIS OUTPT BUSPIRONE HCL 10MG TAB (Status = ) TAKE ONE TABLET BY MOUTH THREE TIMES A DAY FOR ANXIETY Rx# [id number] Last Released: 11/12/22 Qty/Days Supply: Rx Expiration Date: 11/12/23 Refills Remainin Indication: FOR ANXIETY OUTPT CARBOXYMETHYLCELLULOSE NA 0.5% OPH SOLN (Status = Active) INSTILL 1 DROP INTO EACH EYE FOUR TIMES DAILY NEEDED FOR DRY EYE Rx# [id number] Last Released: 06/10/23 Qty/Days Supply: 45 Rx Expiration Date: 06/03/24 Refills Remainin Indication: FOR DRY EYE Non-VA CLONAZEPAM 0.5MG TAB TAKE ONE TABLET BY MOUTH TWICE DAILY NEEDED OUTPT ESCITALOPRAM OXALATE 10MG TAB (Status = Discontinued) TAKE ONE-HALF TABLET BY MOUTH TWICE DAILY FOR MAJOR DEPRESSIVE DISORDER FOR MOOD/DEPRESSION Rx# [id number] Last Released: 09/23/23 Qty/Days Supply: Rx Expiration Date: 11/27/23 Refills Remainin Indication: FOR MAJOR DEPRESSIVE DISORDER OUTPT ESCITALOPRAM OXALATE 10MG TAB (Status = Active) TAKE ONE-HALF TABLET BY MOUTH TWICE DAILY FOR MAJOR DEPRESSIVE DISORDER FOR MOOD/DEPRESSION Rx# [id number] Last Released: 12/24/23 Qty/Days Supply: Rx Expiration Date: 12/23/24 Refills Remainin Indication: FOR MAJOR DEPRESSIVE DISORDER OUTPT FINASTERIDE 5MG TAB (Status = Active/Suspended) TAKE ONE TABLET BY MOUTH ONCE DAILY NEEDED FOR PROSTATE Rx# [id number] Last Released: 12/04/23 Qty/Days Supply: Rx Expiration Date: 04/12/24 Refills Remainin Non-VA FISH OIL 500MG DHA/EPA CAP,ORAL TAKE BY MOUTH ONCE DAILY OUTPT FLUTICASONE PROP 50MCG 120D NASAL INHL (Status = Active) INSTILL 2 SPRAYS INTO EACH NOSTRIL ONCE DAILY FOR NASAL IRRITATION/INFLAMMATION MAY DECREASE TO 1 SPRAY/NOSTRIL WHEN CONTROLLED Rx# [id number] Last Released: 11/25/23 Qty/Days Supply: Rx Expiration Date: 06/17/24 Refills Remainin Indication: FOR NASAL IRRITATION/INFLAMMATION OUTPT GABAPENTIN 600MG TAB (Status = Active) TAKE ONE-HALF TABLET BY MOUTH TWICE DAILY FOR NERVE PAIN Rx# [id number] Last Released: 05/13/23 Qty/Days Supply: Rx Expiration Date: 05/11/24 Refills Remainin Indication: FOR NERVE PAIN Non-VA GLUCOSAMINE CAP/TAB TAKE 1000MG BY MOUTH ONCE DAILY OUTPT LISINOPRIL 10MG TAB (Status = Active) TAKE ONE TABLET BY MOUTH ONCE DAILY TO CONTROL BLOOD PRESSURE Rx# [id number] Last Released: 10/25/23 Qty/Days Supply: Rx Expiration Date: 10/25/24 Refills Remainin Indication: FOR HIGH BLOOD PRESSURE Non-VA LYSINE CAP/TAB TAKE ONE TABLET BY MOUTH ONCE DAILY Non-VA NAPROXEN 500MG TAB TAKE ONE TABLET BY MOUTH ONCE DAILY OUTPT OMEPRAZOLE 20MG EC CAP (Status = Active) TAKE ONE CAPSULE BY MOUTH TWICE DAILY FOR GASTROESOPHAGEAL REFLUX DISEASE Rx# [id number] Last Released: 09/28/23 Qty/Days Supply: 180 Rx Expiration Date: 09/23/24 Refills Remainin Indication: FOR GASTROESOPHAGEAL REFLUX DISEASE OUTPT SUNSCREEN 30-50/AVOBENZONE/PABA-F LOTION (Status = ) APPLY A LIBERAL AMOUNT TOPICALLY NEEDED TO PREVENT SUNBURN Rx# [id number] Last Released: 10/29/22 Qty/Days Supply: 480/ Rx Expiration Date: 10/24/23 Refills Remainin Indication: TO PREVENT SUNBURN OUTPT SUNSCREEN 30-50/PHY BLOCK/PABA-F FACE CR (Status = ) APPLY A LIBERAL AMOUNT TOPICALLY NEEDED TO PREVENT SUNBURN Rx# [id number] Last Released: 10/28/22 Qty/Days Supply: 360/ Rx Expiration Date: 10/24/23 Refills Remainin Indication: TO PREVENT SUNBURN SUPPLIES Suicide Screen: C-SSRS Screening Bland-Suicide Severity Rating Scale (C-SSRS Screener) 1. Over the past month, have you wished you were or wished you could go to sleep and not wake up? No 2. Over the past month, have you had any actual thoughts of killing yourself? No 3. Over the past month, have you been thinking about how you might do this? Response not required due to responses to other questions. 4. Over the past month, have you had these thoughts and had some intention of acting on them? Response not required due to responses to other questions. 5. Over the past month, have you started to work out or worked out the details of how to kill yourself? Response not required due to responses to other questions. 6. If yes, at any time in the past month did you intend to carry out this plan? Response not required due to responses to other questions. 7. In your lifetime, have you ever done anything, started to do anything, or prepared to do anything to end your life (for example, collected pills, obtained a gun, gave away valuables, went to the roof but didn't jump)? No 8. If YES, was this within the past 3 months? Response not required due to responses to other questions. /harpal/ MEJIA MARCH DPM DINKEY OPERATOR SLAG Signed: 01/18/2024 12:04 MEJIA MARCH [facility]
--- OUTSIDE RECORDS SUMMARY | 2024-06-22 13:50 | XMS_ITS ---
Author Name [facility] [place] [facility] [place] Address [address] [place] [address] Care Team Providers Care Service Attendant Name Role Phone STEPHON UGARTE Primary Care [...] SUPPLEMEN ANTWAN MEDEX 2 Apr 26, 2017 [id number] ELIO CORTES PATIENT ANTHEM BCBS OF [place] MEDICARE SUPPLEMEN ANTWAN COH RETIR EMENT Apr 26, 2017 [id number] ELIO CORTES PATIENT [place] SUPPLEMEN ANTWAN MEDEX 2 Apr 26, 2017 [id number] [phone] ELIO CORTES [place] SUPPLEMEN ANTWAN MEDEX 2 Apr 26, 2017 [id number] [phone] ELIO CORTES PAT[place] SUPPLEMEN ANTWAN MEDEX 2 Apr 26, 2017 [id number] ELIO CORTES PATIENT MEDICARE (WNR) MEDICARE (M) PART A Oct 24, 2012 PART A [id number] [phone] ELIO CORTES PATIENT MEDICARE (WNR) MEDICARE (M) PART B Oct 24, 2012 PART B [id number] ELIO CORTES PATIENT MEDICARE (WNR) MEDICARE (M) PART A Oct 24, 2012 PART A [id number] [phone] ELIO CORTES PATIENT MEDICARE (WNR) MEDICARE (M) PART B Oct 24, 2012 PART B [id number] ELIO CORTES PATIENT MEDICARE (WNR) MEDICARE (M) PART A Oct 24, 2012 PART A [id number] ELIO CORTES PATIENT MEDICARE (WNR) MEDICARE (M) PART B Oct 24, 2012 PART B [id number] ELIO CORTES PATIENT Selected Encounter This section includes the information on record at [place] for the Encounter. 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 Date/Time Primary/Secondary Diagnosis Diagnosis Name Provider Source Jan 11, 2024 02:26 PM PRIMARY Other low back pain ROCHELLE TATE [place] [facility] [place] [facility] Plan of Treatment: Future Appointments (+ 6 months) and Future Tests (+/- 45 days) The Plan of Treatment section includes future care activities for the patient from all [place] treatmentfacilities. This section includes future appointments and future orders which are active, pending or scheduled. Future Appointments This section includes appointments that were scheduled to occur 6 months from the date of the Encounter, up to a maximum of 20 appointments. The data comes from all [place] treatment facilities. Appointment Date/Time Appointment Type Appointme nt Facility Name Dec 28, 2023 02:45 PM AMBULATORY - [facility]ICINE [facility] Dec 31, 2023 02:00 PM AMBULATORY - MEDICINE [facility] [place] [facility] Jan 06, 2024 03:00 PM AMBULATORY - MEDICINE [facility] [place] [facility] Jan 14, 2024 02:30 PM AMBULATORY - MEDICINE [facility] [place] [facility] Jan 18, 2024 11:30 AM AMBULATORY - MEDICINE [facility] [place] Feb 24, 2024 02:30 PM AMBULATORY - MEDICINE [facility] [place] [facility] Apr 11, 2024 02:00 PM AMBULATORY - MEDICINE [facility] [place] [facility] Jun 06, 2024 11:00 AM AMBULATORY - [facility]ICINE [facility] [place] Jun 08, 2024 03:30 PM AMBULATORY [place]ICINE [place] [facility] [facility] Jun 09, 2024 11:15 AM [facility] Active, Pending, and Scheduled Orders This section includes a listing of several types of active, pending, and scheduled orders, including clinic medications orders, diagnostic test orders, procedure orders and consult orders; where the start date of the order is 45 days before the date of the Encounter or 45 days after the date of theEncounter. The data comes from all [place] treatment facilities. Test Date/Time Test Type Test Details Facility Name Jan 06, 2024 04:17 PM Consult Order ACUPUNCTUR E/NHM OUTPT Cons Biomedical Manager's Choice [place] [facility] [place] [facility] Advance Directives: All historical and current Section Date Range: From patient's date of to the date document was created. This section includes ALL of a patient's completed or amended [place] Advance and Rescinded Directives. The entries below indicate that a directive exists for the patient, but an actual copy is not included with this document. The data comes from all [place] facilities. Date Advance Directives Provider Source Apr 24, 2020 ADVANCE DIRECTIVE DWAINE DENT Encounter Notes: All associated encounter notes This section contains the clinical notes associated to the Encounter. Date/Time Encounter Note(s) Provider Source Dec 24, 2023 02:05 PM CHIROPRACTIC NOTE: LOCAL TITLE: CHIROPRACTOR PROGRESS NOTE STANDARD TITLE: CHIROPRACTIC NOTE DATE OF NOTE: DEC 24, 2023@14:05 ENTRY DATE: DEC 24, 2023@14:06:02 AUTHOR: ROCHELLE TATE COSIGNER: URGENCY: STATUS: COMPLETED ELIO HILL is [...] 10/23/2022 0 Past Surgeries: HX prostate cancer He states that his numbers are coming up again and he is considering hormone therapy. [facility] with C/C of bilat low back pain that remains unchanged.He feels that the F/D stretch helped but the adjustment did not help Vet states that he stopped using sugar [...] hurts Prior treatment: years ago Prior care clinician: years ago and it did not help. Ortho surgeon ordered x- rays and recommended PT which he did and received no benefit. Exercise/Activities: Weight lifts at [employer] and he walks regularly. GOALS: walk w/o pain weight lifting w/o pain Vet anticip[facility]. Reviewed Radiologist's reports: none [...] Supine gluteal stretching as per palpation Objectives 12/24/23 tenderness over R biceps femoris, lumbar paraspinal mm Restrictions L/S Treatment: active/corrective Manual therapy MFR lumbar 8 min F/D mechanical lumbar traction with flexion 8 [...] and avoidance of aggravating factors. Self-Care Recommendations: modify Plank to engage gluteal mm.; trial [...] and pain modulation. Plan: trial chiro Visit 2 F/U 4 weekly Seek urgent care as needed. CMT: chiropractic manipulative therapy SMT: Spinal Manipulative Therapy F/D: Flexion Distraction MFR: Myofascial Release S-I: Sacroiliac MFTP: Myofascial Trigger Point NRS: Numeric Rating Scale N/T: Numbness/Tingling PIR: Post isometric relaxation /es/ [facility]LEL TATE [facility] CHIROPRACTOR Signed: 12/24/2023 14:36 ROCHELLE TATE [facility]
--- OUTSIDE RECORDS SUMMARY | 2024-06-22 13:50 | XMS_ITS | Encounter Summary ---
Author Name [facility] [place] Organization [facility] [place] Address [address] [place] [address] Care Team Providers Care General Accountant Name Role Phone STEPHON UGARTE Primary Care [...] SUPPLEMEN ANTWAN MEDEX 2 Apr 26, 2017 [id number] ELIO CORTES PATIENT ANTHEM BCBS OF [place] MEDICARE SUPPLEMEN NATWAN COH RETIR EMENT Apr 26, 2017 [id number] ELIO CORTES PATIENT [place] SUPPLEMEN ANTWAN MEDEX 2 Apr 26, 2017 [id number] ELIO CORTES [place] SUPPLEMEN ANTWAN MEDEX 2 Apr 26, 2017 [id number] ELIO CORTES [place] SUPPLEMEN ANTWAN MEDEX 2 Apr 26, 2017 [id number] ELIO CORTES PATIENT MEDICARE (WNR) MEDICARE (M) PART A Oct 24, 2012 PART A [id number] ELIO CORTES PATIENT MEDICARE (WNR) MEDICARE (M) PART B Oct 24, 2012 PART B [id number] [phone] ELIO CORTES PATIENT MEDICARE (WNR) MEDICARE (M) PART A Oct 24, 2012 PART A [id number] ELIO CORTES PATIENT MEDICARE (WNR) MEDICARE (M) PART B Oct 24, 2012 PART B [id number] ELIO CORTES PATIENT MEDICARE (WNR) MEDICARE (M) PART A Oct 24, 2012 PART A [id number] ELIO CORTES PATIENT MEDICARE (WNR) MEDICARE (M) PART B Oct 24, 2012 PART B [id number] [phone] ELIO CORTES PATIENT Selected Encounter This section includes the information on record at [place] for the Encounter. Date/Time Encounter Type Encounter Description Reason Pro vider Source Feb 14, 2024 12:15 PM Outpatient Encounter ADMIN PAT ACTIVTIES (MASNONCT) IHE Encounter Template Text not used by [place] Plan of Treatment: Future Appointments (+ 6 months) and Future Tests (+/- 45 days) The Plan of Treatment section includes future care activities for the patient from all [place] treatmentfacilities. This section includes future appointments and future orders which are active, pending or scheduled. Future Appointments This section includes appointments that were scheduled to occur 6 months from the date of the Encounter, up to a maximum of 20 appointments. The data comes from all [place] treatment facilities. Appointment Date/Time Appointment Type Appointme nt Facility Name Feb 24, 2024 02:30 PM AMBULATORY - MEDICINE [place] [facility] [place] [facility] Apr 11, 2024 02:00 PM AMBULATORY - MEDICINE [place] [facility] [facility] [facility] Jun 06, 2024 11:00 AM AMBULATORY - MEDICINE [facility] Jun 08, 2024 03:30 PM [facility] Jun 09, 2024 11:15 AM AMBULATORY - MEDICINE [facility] Active, Pending, and Scheduled Orders This section includes a listing of several types of active, pending, and scheduled orders, including clinic medications orders, diagnostic test orders, procedure orders and consult orders; where the start date of the order is 45 days before the date of the Encounter or 45 days after the date of theEncounter. The data comes from all [place] treatment facilities. Test Date/Time Test Type Test Details Facility Name Jan 06, 2024 04:17 PM Consult Order ACUPUNCTUR E/NHM OUTPT Cons Bandage Winding Machine Operator's Choice [place] [facility] Advance Directives: All historical and current Section Date Range: From patient's date of to the date document was created. This section includes ALL of a patient's completed or amended [place] Advance and Rescinded Directives. The entries below indicate that a directive exists for the patient, but an actual copy is not included with this document. The data comes from all [place] facilities. Date Advance Directives Provider Source Apr 24, 2020 ADVANCE DIRECTIVE DWAINE DENT Encounter Notes: All associated encounter notes This section contains the clinical notes associated to the Encounter. Date/Time Encounter Note(s) Provider Source Feb 14, 2024 12:15 PM PHARMACY NOTE: LOCAL TITLE: PHARMACY CUSTOMER CARE MEDICATION RENEWAL STANDARD TITLE: PHARMACY NOTE DATE OF NOTE: FEB 14, 2024@12:15 ENTRY DATE: FEB 14, 2024@12:15:55 AUTHOR: LYLE RAINEY EXP COSIGNER: URGENCY: STATUS: COMPLETED Date: Jan Division: [place] Pt referred by Pharmacy Call Center for medication renewal: Non-controlled/maintena nce medication Medications requested: [id number] OMEPRAZOLE 20MG EC CAP Defer to primary care provider To be mailed . Please review and renew if appropriate. *This note was generated by [facility] Pharmacy Customer Care. If you have any questions or need assistance, do not contact this author. Please refer all questions to your local, on-site pharmacy departments. /harpal/ LYLE RAINEY CPhT [employer] [place], [place]/Pharmacy Customer Care Signed: 02/14/2024 12:16 Receipt Acknowledged By: 04/25/2024 14:05 /es/ STEPHON UGARTE MD PHYSICIAN 02/14/2024 13:26 /harpal/ VALENTINA CODYN,RN-BC REGISTERED NURSE (RN) LYLE RAINEY CNTRL [facility]
--- OUTSIDE RECORDS SUMMARY | 2024-06-22 13:50 | XMS_ITS ---
Author Organization [facility] Address [address] [place] [address] Care Team Providers Care Slunk Skinner Name Role Phone Joanne Bejarano MD Primary Care Provider Abdoulaye Cast [phone] Encounters Encounter Location Date Provider Diagnosis [facility] [address] [place] [address] 03/30/2023 Abdoulaye Ronquillo PLAN OF TREATMENT No Information
--- OUTSIDE RECORDS SUMMARY | 2024-06-22 13:51 | XMS_ITS | Encounter Summary ---
Author Name [facility] [place] Organization [facility] [place] Address [address] [place] [address] Care Team Providers Care Information Scientist Name Role Phone STEPHON UGARTE Primary Care [...] SUPPLEMEN ANTWAN MEDEX 2 Apr 26, 2017 [id number] ELIO CORTES PATIENT ANTHEM BCBS OF CT MEDICARE SUPPLEMEN ANTWAN COH RETIR EMENT Apr 26, 2017 [id number] [phone] ELIO CORTES PATIENT [place] SUPPLEMEN ANTWAN MEDEX 2 Apr 26, 2017 [id number] ELIO CORTES PAT[place] SUPPLEMEN ANTWAN MEDEX 2 Apr 26, 2017 [id number] [phone] ELIO CORTES PATIENT [place] SUPPLEMEN ANTWAN MEDEX 2 Apr 26, 2017 [id number] ELIO CORTES PATIENT MEDICARE (WNR) MEDICARE (M) PART A Oct 24, 2012 PART A [id number] ELIO CORTES PATIENT MEDICARE (WNR) MEDICARE (M) PART B Oct 24, 2012 PART B [id number] ELIO CORTES PATIENT MEDICARE (WNR) MEDICARE (M) PART A Oct 24, 2012 PART A [id number] [phone] ELIO CORTES PATIENT MEDICARE (WNR) MEDICARE (M) PART B Oct 24, 2012 PART B [id number] [phone] ELIO CORTES PATIENT MEDICARE (WNR) MEDICARE (M) PART A Oct 24, 2012 PART A [id number] ELIO CORTES PATIENT MEDICARE (WNR) MEDICARE (M) PART B Oct 24, 2012 PART B [id number] ELIO COTRES PATIENT Selected Encounter This section includes the information on record at [place] for the Encounter. Date/Time Encounter Type Encounter Description Reason Provider Source Dec 06, 2023 08:30 AM SELF-MGMT EDUC & TRAIN 1 PT CI TREATMENT ICD-10-CM E66.3 Overweight VITO NAIR IHE Encounter Template Text not used by [place] Assessments - Encounter Diagnoses This section includes the primary and secondary diagnoses documented for the Encounter. Date/Time Primary/Secondary Diagnosis Diagnosis Name Provider Source Jan 03, 2024 10:11 AM PRIMARY Overweight VITO NAIR [place] [facility] [place] [facility] Plan of Treatment: Future Appointments (+ 6 months) and Future Tests (+/- 45 days) The Plan of Treatment section includes future care activities for the patient from all [place] treatmentfacilities. This section includes future appointments and future orders which are active, pending or scheduled. Future Appointments This section includes appointments that were scheduled to occur 6 months from the date of the Encounter, up to a maximum of 20 appointments. The data comes from all [place] treatment facilities. Appointment Date/Time Appointment Type Appointme nt Facility Name Dec 24, 2023 02:00 PM AMBULATORY - MEDICINE [place] [facility] [facility] Dec 28, 2023 02:45 PM AM[place]ORY - [place]IC[place] Dec 31, 2023 02:00 PM AMBULATORY - MEDICINE [place] [facility] [facility] Jan 06, 2024 03:00 PM AMBULATORY - MEDICINE [place] [facility] [facility] Jan 14, 2024 02:30 PM AMBULATORY - MEDICINE [place] [facility] [facility] Jan 18, 2024 11:30 AM AMBULATORY - MEDICINE [place] Feb 24, 2024 02:30 PM AMBULATORY - MEDICINE [place] [facility] [facility] Apr 11, 2024 02:00 PM AMBULATORY - MEDICINE [place] [facility] [facility] [facility] Jun 06, 2024 11:00 AM AMBULATORY - [place]ICINE [place] Active, [...] of theEncounter. The data comes from all [place] treatment facilities. Test Date/Time Test Type Test Details Facility Name Jan 06, 2024 04:17 PM Consult Order ACUPUNCTUR E/NHM OUTPT Cons Bench Manager's Choice [place] [facility] [place] [facility] Advance Directives: All historical and current Section Date Range: From patient's date of to the date document was created. This section includes ALL of a patient's completed or amended [place] Advance and Rescinded Directives. The entries below indicate that a directive exists for the patient, but an actual copy is not included with this document. The data comes from all [place] facilities. Date Advance Directives Provider Source Apr 24, 2020 ADVANCE DIRECTIVE DWAINE DENT Encounter Notes: All associated encounter notes This section contains the clinical notes associated to the Encounter. Date/Time Encounter Note(s) Provider Source Dec 05, 2023 08:19 PM MENTAL HEALTH CONSULT: LOCAL TITLE: MENTAL HEALTH CONSULT NOTE STANDARD TITLE: MENTAL HEALTH CONSULT DATE OF NOTE: DEC 05, 2023@20:19 ENTRY DATE: DEC 05, 2023@20:19:19 AUTHOR: MELONIE NAIR EXP COSIGNER: URGENCY: STATUS: COMPLETED MENTAL HEALTH CONSULT NOTE Has ADDENDA D/ 78 year old male Kiana comes for trial of hypnotherapy today to assist his goal of weight loss. He is attending overeater [facility] and is trying to lose weight. Two identifiers used today, full SSN and , plus he states full name as he is not known to advertising writer. Kiana has been trying to cut his sugar down and has been increasing exercise, but has not been able to lose weight as he wants to. He is thinking of requesting Wegovy, but unsure if he wants to do this. Kiana would like to use more natural methods for his weight loss. we talked about his efforts to lose weight and his difficulty with eating things he does not want to eat, but craves. Kiana is familiar with meditation and has done a good deal of same in the past, but he always ends up angry after meditating. We discussed this at length because advertising writer was concerned that the similar effect could carry over with hypnotherapy. We discussed the pros and cons at length. kiana stated he felt comfortable with advertising writer and had confidence to try the modality. you are easy to talk to Kiana was able to talk about many aspects that affect him today, including childhood trauma that he believes affects him and his eating at this time. We discussed how scalloper trauma can manifest in different ways in later life and one may not be aware of the roots of the problem. Kiana agreed with this and feels his overeating has been somewhat resultant from past trauma. I was told that I do not love myself and have to learn how to love myself. Kiana uses prayeer as part of self care. He has not done too well with affirmations in the past. A/ Composite Science Teacher and discussed how the unconcious and subconcious mind supports goals of the person when same is in sync and revealed to the subconcious. [place] stated understanding and we evolved several suggestions norman the wants to use for affirmations to support his weight loss journey. Kiana did express understanding of education on hypnotherapy. He stated he feels positive and able to try the therapy today. P/ [place] voiced his wishes regarding a suggestion for his weight loss goals, same was used in his relaxation script. He was able to enter Stage 3 of hypnotic reset and also was able to emerge from rest with some extended time period. He was asked if he had any anger or discomfort post the technique and stated he felt fine and does not feel angry. Has a positive attitude and is able to identify with his strengths and capabilities that make him special. He is able to relate to positive feelings and accomplishments in the past and bring that to now to help him with weight loss goals. Kiana accepted some nightly self suggestions and was instructed on how to use these. He will allow his mind to assimilate the current information and will call us if he wants more hypnotherapy sessions. Kiana was happy and a bit excited with his capability to do this work. He denied anger or any negative outcome today. will call advertising writer as needed for follow up and knows how to make follow up appt if he so desires. Kiana was fully reoriented and assisted to get directions back to his auto as he has not been to this location before, generally goes to [facility] and is happy with care there. /harpal/ MELONIE NAIR RN,MSN,PSYCH N.P., STAFF CLINICAL NURSE SPECIALIST Signed: 12/06/2023 23:20 12/06/2023 ADDENDUM STATUS: COMPLETED Error in date: Kiana was seen on December 05 not December 04. He is interested in ongoing treatment /harpal/ MELONIE NAIR RN,MSN,PSYCH N.P., STAFF CLINICAL NURSE SPECIALIST Signed: 12/06/2023 23:22 MELONIE NAIR [place] [facility]
--- OUTSIDE RECORDS SUMMARY | 2024-06-22 13:51 | XMS_ITS | Encounter Summary ---
Author Name [facility] [place] [facility] [place] [facility] [place] Address [address] [place] [address] Care Team Providers Care Admissions Representative Name Role Phone STEPHON UGARTE Primary Care [...] SUPPLEMEN ANTWAN MEDEX 2 Apr 26, 2017 [id number] ELIO CORTES PATIENT ANTHEM BCBS OF CT MEDICARE SUPPLEMEN ANTWAN COH RETIR EMENT Apr 26, 2017 [id number] [phone] ELIO CORTES PATIENT [place] SUPPLEMEN ANTWAN MEDEX 2 Apr 26, 2017 [id number] [phone] ELIO CORTES PATIENT [place] SUPPLEMEN ANTWAN MEDEX 2 Apr 26, 2017 [id number] ELIO CORTES PATIENT [place] SUPPLEMEN ANTWAN MEDEX 2 Apr 26, 2017 [id number] ELIO CORTES PATIENT MEDICARE (WNR) MEDICARE (M) PART A Oct 24, 2012 PART A [id number] [phone] ELIO CORTES PATIENT MEDICARE (WNR) MEDICARE (M) PART B Oct 24, 2012 PART B [id number] [phone] ELIO CORTES PATIENT MEDICARE (WNR) MEDICARE (M) PART A Oct 24, 2012 PART A [id number] ELIO CORTES PATIENT MEDICARE (WNR) MEDICARE (M) PART B Oct 24, 2012 PART B [id number] ELIO CORTES PATIENT MEDICARE (WNR) MEDICARE (M) PART A Oct 24, 2012 PART A [id number] ELIO CORTES PATIENT MEDICARE (WNR) MEDICARE (M) PART B Oct 24, 2012 PART B [id number] ELIO CORTES PATIENT Selected Encounter This section includes the information on record at [place] for the Encounter. Date/Time Encounter Type Encounter Description Reason Provider Source Nov 23, 2023 01:00 PM OFFICE O/P NEW MOD 45 MIN SPEECH PATHOLOGY ASSISTANT ICD-10-CM M54.59 Other low back pain ROCHELLE TATE [facility] Encounter Template Text not used by [place] Assessments - Encounter Diagnoses This section includes the primary and secondary diagnoses documented for the Encounter. Date/Time Primary/Secondary Diagnosis Diagnosis Name Provider Source Dec 23, 2023 07:47 AM PRIMARY Other low back pain ROCHELLE TATE [place] [facility] Plan of Treatment: Future Appointments (+ 6 months) and Future Tests (+/- 45 days) The Plan of Treatment section includes future care activities for the patient from all [place] treatmentfacilities. This section includes future appointments and future orders which are active, pending or scheduled. Future Appointments This section includes appointments that were scheduled to occur 6 months from the date of the Encounter, up to a maximum of 20 appointments. The data comes from all [place] treatment facilities. Appointment Date/Time Appointment Type Appointme nt Facility Name Dec 06, 2023 08:30 AM AMBULATORY - PSYCHIATRY [place] [facility] [place] [facility] Dec 24, 2023 02:00 PM AMBULATORY - MEDICINE [place] [facility] [facility] Dec 28, 2023 02:45 PM AMBULATORY - MEDICINE [facility] Dec 31, 2023 02:00 PM AMBULATORY - MEDICINE [place] [facility] [facility] Jan 06, 2024 03:00 PM AMBULATORY - MEDICINE [place] [facility] [facility] Jan 14, 2024 02:30 PM AMBULATORY - MEDICINE [place] [facility] [facility] Jan 18, 2024 11:30 AM AMBULATORY - MEDICINE [facility] Feb 24, 2024 02:30 PM AMBULATORY - MEDICINE [place] [facility] [place] [facility] Apr 11, 2024 02:00 PM AMBULATORY - MEDICINE [place] [facility] [facility] Active, Pending, and Scheduled Orders This section includes a listing of several types of active, pending, and scheduled orders, including clinic medications orders, diagnostic test orders, procedure orders and consult orders; where the start date of the order is 45 days before the date of the Encounter or 45 days after the date of theEncounter. The data comes from all [facility]. Test Date/Time Test Type Test Details Facility Name Jan 06, 2024 04:17 PM Consult Order ACUPUNCTUR E/NHM OUTPT Cons Inspector Precision Assembly[facility] Advance Directives: All historical and current Section Date Range: From patient's date of to the date document was created. This section includes ALL of a patient's completed or amended [place] Advance and Rescinded Directives. The entries below indicate that a directive exists for the patient, but an actual copy is not included with this document. The data comes from all [place] facilities. Date Advance Directives Provider Source Apr 24, 2020 ADVANCE DIRECTIVE DWAINE DENT Encounter Notes: All associated encounter notes This section contains the clinical notes associated to the Encounter. Date/Time Encounter Note(s) Provider Source Nov 23, 2023 01:54 PM CHIROPRACTIC CONSU LT: LOCAL TITLE: CONSULT REPORT/CHIROPRACTOR STANDARD TITLE: CHIROPRACTIC CONSULT DATE OF NOTE: NOV 23, 2023@13:54 ENTRY DATE: NOV 23, 2023@13:54:40 AUTHOR: ROCHELLE TATE EXP COSIGNER: URGENCY: STATUS: [...] Hypercholesterolemia E78.00 04/16/2020 TORITO,STEPHON Hypertension I10. 09/12/2020 TORITO,STPEHON CoManagement R69. 04/16/2020 TORITO,STEPHON Anxiety disorder F41.1 10/23/2022 0 Past Surgeries: HX prostate cancer He states that his numbers are coming up again and he is considering hormone therapy. Patient [facility] [place] [facility] with C/C of bilat low back pain and points to lower lumbar Quality: ache and intermittent Vet rates the [...] Prior treatment: years ago Prior patient care specialist: years ago and it did not help. Ortho surgeon ordered x- rays and recommended PT which he did and received no benefit. Exercise/Activities: Weight lifts at [employer] and he walks regularly. GOALS: walk w/o pain weight lifting w/o pain Vet anticipates Hypnosis at this [place] for weight loss. Reviewed Radiologist's reports: none [...] ~ Supine gluteal stretching as per palpation Treatment: active/corrective F/D mechanical lumbar traction with flexion 8 min, lumbar CMT lumbar side posture CMT thoracic prone Treatment carried out today and well tolerated [...] and pain modulation. Plan: trial chiro Visit 1 F/U 4 weekly Seek urgent care as needed. CMT: chiropractic manipulative therapy SMT: Spinal Manipulative Therapy F/D: Flexion Distraction MFR: Myofascial Release S-I: Sacroiliac MFTP: Myofascial Trigger Point NRS: Numeric Rating Scale N/T: Numbness/Tingling PIR: Post isometric relaxation /es/ [facility]ATE [facility] CHIROPRACTOR Signed: 11/23/2023 14:10 ROCHELLE TATE [facility]
--- OUTSIDE RECORDS SUMMARY | 2024-06-22 13:51 | XMS_ITS | Continuity of Care Document ---
Author Name [facility] Organization [facility] Care Team Providers Care Excel Vba Developer Name Role Phone [facility] Unavailable Unavailable Problems Combined list of problems from Department of Defense and Veterans Affairs facilities. It does not include entries that were removed or entered in error. Problem Status Onset Date Problem Type Date of Resolution Comments Source Anxiety disorder Active Condition Oct 08, 2021 Entered By: TRACIE UGARTE Comment: Escitalopram/d uloxetineOct 23, 2022 Entered By: TRACIE UGARTE Comment: buspar 10 tid [facility] [place] [facility] Attention deficit hyperactivity disorder Active Condition Sep 262022 Entered By: TRACIE UGARTE Comment: Adderall 10mg bid [place] Chronic Kidney Disease Stage 3B (SCT [id number]) Active Condition [facility] Co[facility] Active Condition Apr 16, 2020 Entered By: TRACIE UGARTE Comment: nonVA PCP [facility] Gastroesophageal reflux disease without esophagitis Active Condition September 12, 2020 Entered By: TRACIE UGARTE Comment: s/p panendoscopy 08/2020; rec repeat in 2023 [facility] Hypercholesterolemia Active Condition Apr 16, 2020 Entered By: TRACIE UGARTE Comment: on low intensity atorvastatin / omega-krill oil [facility] Hypertension Active Condition September 12, 2020 Entered By: TRACIE UGARTE Comment: on amlodipine 10mg [facility] Prediabetes Active Condition Jul 06, 2022 Entered By: TRACIE UGARTE Comment: Feb 2022 A1c 5.7 (rising trend) [place] Prostate cancer Active Condition Apr 16, 2020 Entered By: TRACIE UGARTE Comment: s/p XRTDec 2019 Entered By: TRACIE UGARTE Comment: followed by Dr. Willams 2019 Entered By: RTACIE UGARTE Comment: on finasteride [facility] Diagnosis: ICD-10-CM R05.9 Cough, unspecified Active Diagnosis [place] Diagnosis: ICD-10-CM Z46.0 Encounter for fit/adjst of spectacles and contact lenses Active Diagnosis [facility] Diagnosis: ICD-10-CM Z96.1 Presence of intraocular lens Active Diagnosis [facility] Diagnosis: ICD-10-CM L60.0 Ingrowing nail Active Diagnosis [facility] Diagnosis: ICD-10-CM R73.03 Prediabetes Active Diagnosis [facility] Diagnosis: ICD-10-CM L60.3 Nail dystrophy Active Diagnosis [facility] Diagnosis: ICD-10-CM M54.59 Other low back pain Active [facility] [place] [facility] Diagnosis: ICD-10-CM M79.661 Pain in right lower leg Active Diagnosis [place] Diagnosis: ICD-10-CM E66.3 Overweight Active Diagnosis [facility] Diagnosis: ICD-10-CM Z00.01 Encounter for general adult medical exam w abnormal findings Active Diagnosis [place] Diagnosis: ICD-10-CM L57.0 Actinic keratosis Active Diagnosis [facility] ([id number]) Diagnosis: ICD-10-CM F41.9 Anxiety disorder, unspecified Active Diagnosis [facility] Diagnosis: ICD-10-CM F41.1 Generalized anxiety disorder Active Diagnosis [facility] Diagnosis: ICD-10-CM E66.09 Other obesity due to excess calories Active Diagnosis [facility] Medications Combined list of outpatient medications from Department of Defense and Veterans Affairs facilities.Medications provided include 1) outpatient medications from the last 15 months, and 2) patient-reported medications. Medication Details Route Status Patient Instructions Prescription Expires Prescription Number Last Dispense Date Ordering Provider Order Date Order Qty Source ALBUTEROL 90MCG/ACTUA T (CFC-F) INHL,ORAL,8 .5GM DOSE COUNTER INHALE 2 PUFFS BY MOUTH FOUR TIMES DAILY NEEDED FOR SHORTNES S OF BREATH RESPIR ATORY (INHAL ATION) ACTIVE 03/22/2025 [id number] Rama MORALESD A 2023 2 [place] AMLODIPINE BESYLATE 5MG TAB TAKE ONE TABLET BY MOUTH ONCE DAILY FOR BLOOD PRESSURE /HEART, DO NOT TAKE WITH GRAPEFRU IT JUICE ORAL SUSPEND ED 02/14/2025 [id number] TORITOCEDRIC BRANDT O 2023 90 [place] AMLODIPINE BESYLATE 5MG TAB TAKE ONE TABLET BY MOUTH ONCE DAILY FOR BLOOD PRESSURE /HEART, DO NOT TAKE WITH GRAPEFRU IT JUICE ORAL DISCONT INUED 02/12/2024 [id number] CEDRIC UGARTE O 2022 90 [place] ATORVASTATI N CA 80MG TAB TAKE ONE-HALF TABLET BY MOUTH ONCE DAILY FOR CHOLESTE ROL ORAL ACTIVE 06/10/2025 [id number] 5 Rama MORALES AVID A 2024 45 [place] ATORVASTATI N CA 80MG TAB TAKE ONE-HALF TABLET BY MOUTH ONCE DAILY FOR CHOLESTE ROL ORAL DISCONT INUED 04/19/2024 [id number] 4 CEDRIC UGARTE O 2022 45 [place] AZITHROMYCI N 250MG TAB TAKE TWO TABLETS BY MOUTH EVERY MORNING FOR 1 DAY, THEN TAKE ONE TABLET EVERY MORNING FOR 4 DAYS ORAL ACTIVE 07/09/2024 [id number] 5 Rama MORALESD A 2024 6 [place] BENZONATATE 100MG CAP TAKE ONE CAPSULE BY MOUTH THREE TIMES DAILY NEEDED FOR COUGH ORAL ACTIVE 07/09/2024 [id number] 5 Rama MORALES AVID A 2024 15 [place] BETAMETHASO NE DIPROPIONAT E 0.05% AUGMENTED CREAM APPLY DIRECTED TOPICALL Y TWICE DAILY FOR 2 WEEKS, STOP FOR 1 WEEK FOR ITCHING/ RASH TOPICA L 11/24/2023 [id number] CEDRIC UGARTE O 2023 50 [place] CARBOXYMETH YLCELLULOSE NA 0.5% SOLN,OPH INSTILL 1 DROP INTO EACH EYE FOUR TIMES DAILY NEEDED FOR DRY EYE OPHTHA LMIC 06/03/2024 [id number] DENNISNO AH B 2023 45 [facility] CLONAZEPAM 0.5MG TAB TAKE ONE TABLET BY MOUTH TWICE DAILY NEEDED ORAL ACTIVE TORITO, APOLINARI O 2019 [facility] ESCITALOPRA M OXALATE 10MG TAB TAKE ONE-HALF TABLET BY MOUTH TWICE DAILY FOR MAJOR DEPRESSI VE DISORDER FOR MOOD/DEP RESSION ORAL ACTIVE 12/23/2024 [id number] TORITO, APOLINARI O 2023 90 [place] ESCITALOPRA M OXALATE 10MG TAB TAKE ONE-HALF TABLET BY MOUTH TWICE DAILY FOR MAJOR DEPRESSI VE DISORDER FOR MOOD/DEP RESSION ORAL DISCONT INUED 11/27/2023 [id number] TORITO, APOLINARI O 2022 90 [place] FINASTERIDE 5MG TAB TAKE ONE TABLET BY MOUTH ONCE DAILY NEEDED FOR PROSTATE ORAL ACTIVE 06/10/2025 [id number] 5 Rama MORALES 2024 90 [place] FINASTERIDE 5MG TAB TAKE ONE TABLET BY MOUTH ONCE DAILY NEEDED FOR PROSTATE ORAL DISCONT INUED 04/12/2024 [id number] TORITO, APOLINARI O 2022 90 [place] FISH OIL CAP,ORAL TAKE BY MOUTH ONCE DAILY ORAL ACTIVE TORITO, APOLINARI O 2019 [facility] FLUOROURACI L 0.5% CREAM,TOP APPLY A SMALL AMOUNT TOPICALL Y ONCE DAILY FOR ROUGHENE D RED PATCHES OF SKIN FOR UP TP 2 WEEKS TOLERATE D TOPICA L 07/18/2023 [id number] TORITO, APOLINARI O 2022 30 [place] FLUTICASONE PROPIONATE 50MCG/SPRAY SOLN,NASAL, 16GM INSTILL 2 SPRAYS INTO EACH NOSTRIL ONCE DAILY FOR NASAL IRRITATI ON/INFLA MMATION MAY DECREASE TO 1 SPRAY/NO STRIL WHEN CONTROLL ED NASAL 06/17/2024 [id number] TORITO, APOLINARI O 2023 3 [place] GABAPENTIN 600MG TAB TAKE ONE-HALF TABLET BY MOUTH TWICE DAILY FOR NERVE PAIN ORAL 05/11/2024 [id number] TORITO, APOLINARI O 2023 90 [place] GLUCOSAMINE CAP/TAB TAKE 1000MG BY MOUTH ONCE DAILY ORAL ACTIVE TORITO, APOLINARI O 2019 [facility] GUAIFENESIN 600MG TAB,SA TAKE ONE TABLET BY MOUTH TWICE DAILY FOR COUGH FOLLOW DOSE WITH FULL GLASS OF WATER ORAL ACTIVE 07/09/2024 [id number] 5 Rama MORALES A 2024 14 [place] LISINOPRIL 10MG TAB TAKE ONE TABLET BY MOUTH ONCE DAILY TO CONTROL BLOOD PRESSURE ORAL ACTIVE 10/25/2024 [id number] 5 TORITO, APOLINARI O 2023 90 [place] LOSARTAN 25MG TAB TAKE ONE TABLET BY MOUTH ONCE DAILY FOR BLOOD PRESSURE /HEART STOP LISINOPR IL ORAL DISCONT INUED BY PROVIDE R 06/14/2024 [id number] PO,LORENV ER O 2023 90 [place] LYSINE 500MG TAB TAKE ONE TABLET BY MOUTH ONCE DAILY ORAL ACTIVE TORITO, APOLINARI O [facility] [facility] METFORMIN HCL 500MG 24HR TAB,SA TAKE ONE TABLET BY MOUTH ONCE DAILY FOR 7 DAYS, THEN TAKE TWO TABLETS ONCE DAILY ORAL ACTIVE 09/07/2024 [id number] 5 Rama MORALESD A 2024 173 [place] METFORMIN HCL 500MG 24HR TAB,SA TAKE ONE TABLET BY MOUTH ONCE DAILY FOR 7 DAYS, THEN TAKE TWO TABLETS ONCE DAILY ORAL DISCONT INUED 05/28/2024 [id number] Sisi STALLINGS A 2023 173 [place] NAPROXEN 500MG TAB TAKE ONE TABLET BY MOUTH ONCE DAILY ORAL ACTIVE TORITO APOLINARI O 2019 [facility] OMEPRAZOLE 20MG CAP,EC TAKE ONE CAPSULE BY MOUTH TWICE DAILY FOR GASTROES OPHAGEAL REFLUX DISEASE ORAL ACTIVE 04/15/2025 [id number] 4 Rama MORALES AVID A 2023 180 [place] OMEPRAZOLE 20MG CAP,EC TAKE ONE CAPSULE BY MOUTH TWICE DAILY FOR GASTROES OPHAGEAL REFLUX DISEASE ORAL DISCONT INUED 09/23/2024 [id number] TORITO, APOLINARI O 2023 180 [place] OMEPRAZOLE 20MG CAP,EC TAKE ONE CAPSULE BY MOUTH EVERY MORNING 30 MINUTES BEFORE BREAKFAS T ORAL DISCONT INUED (EDIT) 12/18/2023 [id number] TORITO, APOLINARI O 2022 90 [place] PHENTERMINE 7.5MG/TOPIR AMATE 46MG CAP,SA TAKE 1 CAPSULE BY MOUTH EVERY MORNING FOR WEIGHT LOSS MANAGEME NT WITH OR WITHOUT FOOD ORAL 08/14/2023 [id number] TORITO, APOLINARI O 2022 30 [place] PREDNISONE 5MG TAB TAKE EIGHT TABLETS BY MOUTH EVERY MORNING FOR 2 DAYS, THEN TAKE FOUR TABLETS EVERY MORNING FOR 2 DAYS, THEN TAKE TWO TABLETS EVERY MORNING FOR 2 DAYS, THEN TAKE ONE TABLET EVERY MORNING FOR 2 DAYS FOR COPD EXACERBA TION/BRO NCHITIS ORAL ACTIVE 07/09/2024 [id number] Rama MORALES A 2024 30 [place] Allergies, Adverse Reactions, Alerts Combined list of allergies from Department of Defense and Veterans Affairs facilities. It does not include entries that were removed or entered in error. Substance Category Reaction Severity Reaction type Status Date Reported Comments Source [place] Propensity to adverse reactions to substance (finding) active 0 [facility] [place] [facility] PENICILLIN Propensity to adverse reactions to drug (finding) [facility] Immunizations Combined list of available immunizations from the Department of Defense and Veterans Affairs facilities. Immunization Series Date Given Administered By Site Reaction Lot Number CVX Code Drug Optical Coating Technician Status Comments Source INFLUENZA, UNSPECIFIED FORMULATION 2021 88 complet ed [facility] TDAP 2020 115 complet ed [place] ZOSTER RECOMBINANT 2 2020 187 complet ed [place] COVID-19 (PFIZER), MRNA, LNP-S, PF, 30 MCG/0.3 ML DOSE 2 2020 208 complet ed PFR; [id number]; 1 [facility] COVID-19 (PFIZER), MRNA, LNP-S, PF, 30 MCG/0.3 ML DOSE 1 2020 208 complet ed PFR; [id number]; 1 [facility] ZOSTER RECOMBINANT 1 2020 187 complet ed [place] INFLUENZA, UNSPECIFIED FORMULATION 2019 88 complet ed [facility] ZOSTER LIVE 2011 121 complet ed yes [facility] TDAP 2007 115 complet ed [facility] Results Combined list of recent chemistry, hematology and other laboratory results from Department of Defense and Veterans Affairs, ranging from 15 months to all on record, depending upon the facility. Order Name Results Value Reference Range Date Interpretation Specimen Comments Source COVID-19 FLU/RSV DIAGNOST IC PANEL SARS-COV-2 (COVID-19) RNA [PRESENCE] IN RESPIRATOR Y SYSTEM SPECIMEN BY YARA WITH PROBE DETECTION NEGATIVE 06/09 Specimen Type: NASOPHARYNX Comment: This test is authorized for emergency use only. False negative results may occur if virus is present at levels below the analytical limit of detection.N egative results do not preclude SARS-CoV-2, influenza or RSV infection and should not be used as the sole basis for treatment or other patient management decisions.C epheid FLUVID: HCPs: https://www .fda.gov/me anup/269305/ download. Patients: https://www .fda.gov/me anup/878662/ download Ordering Provider: AMIE MORALES A Report Released Date/Time: Jun 09, 2024 11:33 AM [facility] [address] [address] Performing Lab: [address] [address] [facility] COVID-19 FLU/RSV DIAGNOST IC PANEL FLU A PCR (FLUVID) POSITIVE 06/09 Specimen Type: NASOPHARYNX Comment: This test is authorized for emergency use only. False negative results may occur if virus is present at levels below the analytical limit of detection.N egative results do not preclude SARS-CoV-2, influenza or RSV infection and should not be used as the sole basis for treatment or other patient management decisions.C epheid FLUVID: HCPs: https://www .fda.gov/me anup/499336/ download. Patients: https://www .fda.gov/me anup/927868/ download Ordering Provider: AMIE MORALES A Report Released Date/Time: Jun 09, 2024 11:33 AM Reporting Lab: [address] [address] Performing Lab: [address] [address] [facility] COVID-19 FLU/RSV DIAGNOST IC PANEL FLU B PCR (FLUVID) NEGATIVE 06/09 Specimen Type: NASOPHARYNX Comment: This test is authorized for emergency use only. False negative results may occur if virus is present at levels below the analytical limit of detection.N egative results do not preclude SARS-CoV-2, influenza or RSV infection and should not be used as the sole basis for treatment or other patient management decisions.C epheid FLUVID: HCPs: https://www .fda.gov/me anup/060892/ download. Patients: https://www .fda.gov/me anup/462143/ download Ordering Provider: AMIE MORALES A Report Released Date/Time: Jun 09, 2024 11:33 AM Reporting Lab: [address] [address] Performing Lab: [facility] [address] [facility] [address] [facility] FLU/RSV DIAGNOST IC PANEL RSV PCR (FLUVID) NEGATIVE 06/09 Specimen Type: NASOPHARYNX Comment: This test is authorized for emergency use only. False negative results may occur if virus is present at levels below the analytical limit of detection.N egative results do not preclude SARS-CoV-2, influenza or RSV infection and should not be used as the sole basis for treatment or other patient management decisions.C epheid FLUVID: HCPs: https://www .fda.gov/co anup/488113/ download. Patients: https://www .fda.gov/co anup/971721/ download Ordering Provider: AMIE MORALES Report Released Date/Time: Jun 09, 2024 11:33 AM Reporting [facility]: [facility] [address] [address] Performing Lab: [facility] [address] [facility] LIPID PANEL FASTING CHOLESTERO L [MASS/VOLU ME] IN SERUM OR PLASMA 156 mg/dL 10/17 Specimen Type: SERUM No comment entered. Ordering Provider: KIRA UGARTE Report Released Date/Time: Oct 23, 2022 03:11 PM Reporting Lab: [facility] [address] [address] Performing Lab: [facility] [address] [facility] LIPID PANEL FASTING TRIGLYCERI DE [MASS/VOLU ME] IN SERUM OR PLASMA 108 mg/dL 0 - 150 10/17 Specimen Type: SERUM No comment entered. Ordering Provider: KIRA UGARTE Report Released Date/Time: Oct 23, 2022 03:11 PM Reporting Lab: [facility] [address] [address] Performing Lab: [facility] [address] [facility] [place] [facility] LIPID PANEL FASTING CHOLESTERO L IN LDL [MASS/VOLU ME] IN SERUM OR PLASMA BY MADELAINE Palm 93 mg/dL 0 - 129 10/17 Specimen Type: SERUM No comment entered. Ordering Provider: KIRA UGARTE Report Released Date/Time: Oct 23, 2022 03:11 PM Reporting Lab: [facility] [place] [facility] [address] [facility] [address] Performing Lab: [facility] [place] [facility] [address] [facility] [address] [facility] [place] [facility] LIPID PANEL FASTING CHOLESTERO L.TOTAL/CH OLESTEROL IN HDL [MASS RATIO] IN SERUM OR PLASMA 3.8 10/17 Specimen Type: SERUM No comment entered. Ordering Provider: KIRA UGARTE Report Released Date/Time: Oct 23, 2022 03:11 PM Reporting Lab: [facility] [place] [facility] [address] [facility] [address] Performing Lab: [facility] [place] [facility] [address] [facility] [address] [facility] [place] [facility] LIPID PANEL FASTING CHOLESTERO L IN HDL [MASS/VOLU ME] IN SERUM OR PLASMA 41 mg/dL 40 - 60 10/17 Specimen Type: SERUM No comment entered. Ordering Provider: KRIA UGARTE Report Released Date/Time: Oct 23, 2022 03:11 PM Reporting Lab: [facility] [place] [facility] [address] [facility] [address] Performing Lab: [facility] [place] [facility] [address] [facility] [address] [facility] [place] [facility] LIVER FUNCTION PROTEIN [MASS/VOLU ME] IN SERUM OR PLASMA 6.5 g/dL 6.0 - 8.3 10/17 Specimen Type: SERUM No comment entered. Ordering Provider: KIRA UGARTE Report Released Date/Time: Oct 23, 2022 03:11 PM Reporting Lab: [facility] [place] [facility] [address] [facility] [address] Performing Lab: [facility] [place] [facility] [address] [facility] [address] [facility] [place] [facility] LIVER FUNCTION ALBUMIN [MASS/VOLU ME] IN SERUM OR PLASMA 3.8 g/dL 3.5 - 5.0 10/17 Specimen Type: SERUM No comment entered. Ordering Provider: KIRA UGARTE Report Released Date/Time: Oct 23, 2022 03:11 PM Reporting Lab: [facility] [place] [facility] [address] [facility] [address] Performing Lab: [facility] [place] [facility] [address] [facility] [address] [facility] [place] [facility] LIVER FUNCTION ALKALINE PHOSPHATAS E [ENZYMATIC ACTIVITY/V OLUME] IN SERUM OR PLASMA 79 U/L 40 - 150 10/17 Specimen Type: SERUM No comment entered. Ordering Provider: KIRA UGARTE Report Released Date/Time: Oct 23, 2022 03:11 PM Reporting Lab: [facility] [place] [facility] [address] [facility] [address] Performing Lab: [facility] [place] [facility] [address] [facility] [address] [facility] TRN [facility] LIVER FUNCTION ASPARTATE AMINOTRANS FERASE [ENZYMATIC ACTIVITY/V OLUME] IN SERUM OR PLASMA 24 U/L 5 - 34 10/17 Specimen Type: SERUM No comment entered. Ordering Provider: KIRA UGARTE Report Released Date/Time: Oct 23, 2022 03:11 PM Reporting Lab: [facility] [place] [facility] [address] [facility] [address] Performing Lab: [facility] [place] [facility] [address] [facility] [address] [facility] [place] [facility] LIVER FUNCTION ALANINE AMINOTRANS FERASE [ENZYMATIC ACTIVITY/V OLUME] IN SERUM OR PLASMA 22 U/L 10/17 Specimen Type: SERUM No comment entered. Ordering Provider: KRIA UGARTE Report Released Date/Time: Oct 23, 2022 03:11 PM Reporting Lab: [facility] [address] [facility] [address] Performing Lab: [facility] [address] [facility] [address] [facility] LIVER FUNCTION BILIRUBIN. TOTAL [MASS/VOLU ME] IN SERUM OR PLASMA 0.7 mg/dL 0.2 - 1.2 10/17 Specimen Type: SERUM No comment entered. Ordering Provider: KIRA UGARTE Report Released Date/Time: Oct 23, 2022 03:11 PM Reporting Lab: [facility] [address] [facility] [address] Performing Lab: [facility] [address] [address] [facility] HEMOGLOB IN A1C PANEL HEMOGLOBIN A1C/HEMOGL OBIN.TOTAL IN BLOOD BY HPLC 5.8 4.0 - 5.6 10/17 H Specimen Type: BLOOD Comment: Values obtained from A1C measurement s can vary. For atypical A1C assays, a reported value of 7.0 could actually be between 6.72 and 7.28 if measured by a reference method. A reported value of 9.0 could actually be between 8.73 and 9.27. Ref: http://www. ngsp.org/[place] Pdata.asp Ordering Provider: KIRA UGARTE Report Released Date/Time: Oct 23, 2022 03:11 PM Reporting Lab: [facility] [address] [facility] [address] Performing Lab: [facility] [address] [facility] [address] [facility] BASIC METABOLI C PANEL (fasting ) UREA NITROGEN [MASS/VOLU ME] IN SERUM OR PLASMA 23 mg/dL 7 - 25 10/17 Specimen Type: SERUM No comment entered. Ordering Provider: KIRA UGARTE Report Released Date/Time: Oct 23, 2022 03:11 PM Reporting Lab: [facility] [address] [facility] [address] Performing Lab: [facility] [place] [facility] [address] [facility] [address] [facility] [place] [facility] BASIC METABOLI C PANEL (fasting ) GLUCOSE [MASS/VOLU ME] IN SERUM OR PLASMA 94 mg/dL 65 - 100 10/17 Specimen Type: SERUM No comment entered. Ordering Provider: KIRA UGARTE Report Released Date/Time: Oct 23, 2022 03:11 PM Reporting Lab: [facility] [place] [facility] [address] [facility] [address] Performing Lab: [facility] [address] [facility] [address] [facility] BASIC METABOLI C PANEL (fasting ) SODIUM [MOLES/VOL UME] IN SERUM OR PLASMA 139 mmol/L 135 - 145 10/17 Specimen Type: SERUM No comment entered. Ordering Provider: KIRA UGARTE Report Released Date/Time: Oct 23, 2022 03:11 PM Reporting Lab: [facility] [place] [facility] [address] [facility] [address] Performing Lab: [facility] [address] [facility] [address] [facility]N [facility] BASIC METABOLI C PANEL (fasting ) POTASSIUM [MOLES/VOL UME] IN SERUM OR PLASMA 4.5 mmol/L 3.5 - 5.0 10/17 Specimen Type: SERUM No comment entered. Ordering Provider: KIRA UGARTE Report Released Date/Time: Oct 23, 2022 03:11 PM Reporting Lab: [facility] [place] [facility] [address] [facility] [address] Performing Lab: [facility] [place] [facility] [address] [facility] [address] [facility] [place] [facility] BASIC METABOLI C PANEL (fasting ) CHLORIDE [MOLES/VOL UME] IN SERUM OR PLASMA 107 mmol/L 100 - 110 10/17 Specimen Type: SERUM No comment entered. Ordering Provider: KIRA UGARTE Report Released Date/Time: Oct 23, 2022 03:11 PM Reporting Lab: [place] [facility] [place] [facility] [address] [facility] [address] Performing Lab: [facility] [address] [facility] [address] [facility] BASIC METABOLI C PANEL (fasting ) CARBON DIOXIDE, TOTAL [MOLES/VOL UME] IN SERUM OR PLASMA 25 meq/L 20 - 10/17 Specimen Type: SERUM No comment entered. Ordering Provider: KIRA UGARTE Report Released Date/Time: Oct 23, 2022 03:11 PM Reporting Lab: [facility] [address] [address] Performing Lab: [facility]USE[address] [address] [address] [facility]R [facility]ENTERUSE [facility] BASIC METABOLI C PANEL (fasting ) CREATININE [MASS/VOLU ME] IN SERUM OR PLASMA 1.32 mg/dL 0.50 - 1.40 10/17 Specimen Type: SERUM No comment entered. Ordering Provider: KIRA UGARTE Report Released Date/Time: Oct 23, 2022 03:11 PM Reporting Lab: [facility] [place] [address] [address] Performing Lab: [facility] CENTERUSETS [address] [address] [facility]ITALRL W[facility]ENTERUSE [facility] BASIC METABOLI C PANEL (fasting ) GLOMERULAR FILTRATION RATE/1.73 SQ M.PREDICTE D [VOLUME RATE/AREA] IN SERUM, PLASMA OR BLOOD BY CREATININE -BASED FORMULA (CKD-EPI 2020) 56 mL/min 60 10/17 L Specimen Type: SERUM No comment entered. Ordering Provider: KIRA UGARTE Report Released Date/Time: Oct 23, 2022 03:11 PM Reporting Lab: [facility] [place] [place] [address] [address] Performing Lab: [facility] [place] [facility] [address] [facility] [address] [facility] [place] [facility] TSH THYROTROPI N [UNITS/VOL UME] IN SERUM OR PLASMA 2.10 u[IU]/mL 0.35 - 5.00 10/17 Specimen Type: SERUM No comment entered. Ordering Provider: KIRA UGARTE Report Released Date/Time: Oct 23, 2022 03:11 PM Reporting Lab: [facility] [place] [facility] [address] [facility] [address] Performing Lab: [facility] [place] [facility] [address] [facility] [address] [facility] [place] [facility] CBC AND DIFF (AUTO) LEUKOCYTES [#/VOLUME] IN BLOOD BY AUTOMATED COUNT 4.92 10*3/uL 4.50 - 11.00 10/17 Specimen Type: BLOOD No comment entered. Ordering Provider: KIRA UGARTE Report Released Date/Time: Oct 23, 2022 03:11 PM Reporting Lab: [facility] [place] [facility] [address] [facility] [address] Performing Lab: [facility] [place] [facility] [address] [facility] [address] [facility] [place] [place] [facility] CBC AND DIFF (AUTO) ERYTHROCYT ES [#/VOLUME] IN BLOOD BY AUTOMATED COUNT 5.27 10*6/uL 4.23 - 5.66 10/17 Specimen Type: BLOOD No comment entered. Ordering Provider: KIRA UGARTE Report Released Date/Time: Oct 23, 2022 03:11 PM Reporting Lab: [facility] [place] [facility] [address] [facility] [address] Performing Lab: [facility] [place] [facility] [address] [facility] [address] [facility] [place] [facility] CBC AND DIFF (AUTO) HEMOGLOBIN [MASS/VOLU ME] IN BLOOD 14.2 g/dL 12.8 - 17 10/17 Specimen Type: BLOOD No comment entered. Ordering Provider: KIRA UGARTE Report Released Date/Time: Oct 23, 2022 03:11 PM Reporting Lab: [facility] [place] [facility] [address] [facility] [address] Performing Lab: [facility] [place] [facility] [address] [facility] [address] [facility] [place] [facility] CBC AND DIFF (AUTO) HEMATOCRIT [VOLUME FRACTION] OF BLOOD BY AUTOMATED COUNT 43.4 39.2 - 50.4 10/17 Specimen Type: BLOOD No comment entered. Ordering Provider: KIRA UGARTE Report Released Date/Time: Oct 23, 2022 03:11 PM Reporting Lab: [facility] [place] [facility] [address] [facility] [address] Performing Lab: [facility] [facility] [address] [facility] [address] [facility] [place] [facility] CBC AND DIFF (AUTO) MCV [ENTITIC VOLUME] BY AUTOMATED COUNT 82.4 fL 82 - 99 10/17 Specimen Type: BLOOD No comment entered. Ordering Provider: KIRA UGARTE Report Released Date/Time: Oct 23, 2022 03:11 PM Reporting Lab: [facility] [place] [facility] [address] [facility] [address] Performing Lab: [facility] [place] [facility] [address] [facility] [address] [facility] [place] [facility] CBC AND DIFF (AUTO) MCHC [MASS/VOLU ME] BY AUTOMATED COUNT 32.7 g/dL 30.8 - 35.1 10/17 Specimen Type: BLOOD No comment entered. Ordering Provider: KIRA UGARTE Report Released Date/Time: Oct 23, 2022 03:11 PM Reporting Lab: [facility] [place] [facility] [address] [facility] [address] Performing Lab: [facility] [place] [facility] [address] [facility] [address] [facility] [place] [facility] CBC AND DIFF (AUTO) PLATELETS [#/VOLUME] IN BLOOD BY AUTOMATED COUNT 200 10*3/uL 140 - 360 10/17 Specimen Type: BLOOD No comment entered. Ordering Provider: KIRA UGARTE Report Released Date/Time: Oct 23, 2022 03:11 PM Reporting Lab: [facility] [place] [facility] [address] [facility] [address] Performing Lab: [facility] [place] [facility] [address] [facility] [address] [facility] [place] [facility] CBC AND DIFF (AUTO) ERYTHROCYT E DISTRIBUTI ON WIDTH [RATIO] BY AUTOMATED COUNT 13.8 12.0 - 16.0 10/17 Specimen Type: BLOOD No comment entered. Ordering Provider: KIRA UGARTE Report Released Date/Time: Oct 23, 2022 03:11 PM Reporting Lab: [facility] [place] [facility] [address] [facility] [address] Performing Lab: [facility] [place] [facility] [address] [facility] [address] [facility] [place] [facility] CBC AND DIFF (AUTO) MONOCYTES [#/VOLUME] IN BLOOD BY AUTOMATED COUNT 0.48 10*3/uL 0.30 - 1.10 10/17 Specimen Type: BLOOD No comment entered. Ordering Provider: KIRA UGARTE Report Released Date/Time: Oct 23, 2022 03:11 PM Reporting Lab: [facility] [place] [facility] [address] [facility] [address] Performing Lab: [facility] [place] [facility] [address] [facility] [address] [facility] [place] [facility] CBC AND DIFF (AUTO) MCH [ENTITIC MASS] BY AUTOMATED COUNT 26.9 pg 26.2 - 32.6 10/17 Specimen Type: BLOOD No comment entered. Ordering Provider: KIRA UGARTE Report Released Date/Time: Oct 23, 2022 03:11 PM Reporting Lab: [facility] [place] [facility] [address] [facility] [address] Performing Lab: [facility] [place] [address] [address] [facility] [place] [facility] CBC AND DIFF (AUTO) NEUTROPHIL S/100 LEUKOCYTES IN BLOOD BY AUTOMATED COUNT 63.8 43.7 - 75.8 10/17 Specimen Type: BLOOD No comment entered. Ordering Provider: KIRA UGARTE Report Released Date/Time: Oct 23, 2022 03:11 PM Reporting Lab: [facility] [place] [facility] [address] [facility] [address] Performing Lab: [facility] [place] [facility] [address] [facility] [address] [facility] [place] [facility] CBC AND DIFF (AUTO) LYMPHOCYTE S/100 LEUKOCYTES IN BLOOD BY AUTOMATED COUNT 22.2 14.0 - 42.3 10/17 Specimen Type: BLOOD No comment entered. Ordering Provider: KIRA UGARTE Report Released Date/Time: Oct 23, 2022 03:11 PM Reporting Lab: [facility] [place] [facility] [address] [facility] [address] Performing Lab: [facility] [place] [facility] [address] [facility] [address] [facility] [place] [facility] CBC AND DIFF (AUTO) MONOCYTES/ 100 LEUKOCYTES IN BLOOD BY AUTOMATED COUNT 9.8 5.1 - 13.7 10/17 Specimen Type: BLOOD No comment entered. Ordering Provider: KIRA UGARTE Report Released Date/Time: Oct 23, 2022 03:11 PM Reporting Lab: [facility] [place] [facility] [address] [facility] [address] Performing Lab: [facility] [place] [facility] [address] [facility] [address] [facility] [place] [facility] CBC AND DIFF (AUTO) EOSINOPHIL S/100 LEUKOCYTES IN BLOOD BY AUTOMATED COUNT 2.8 0.4 - 6.8 10/17 Specimen Type: BLOOD No comment entered. Ordering Provider: KIRA UGARTE Report Released Date/Time: Oct 23, 2022 03:11 PM Reporting Lab: [facility] [place] [facility] [address] [facility] [address] Performing Lab: [facility] [place] [facility] [address] [facility] [address] [facility] [place] [facility] CBC AND DIFF (AUTO) BASOPHILS/ 100 LEUKOCYTES IN BLOOD BY AUTOMATED COUNT 1.0 0.1 - 2.0 10/17 Specimen Type: BLOOD No comment entered. Ordering Provider: KIRA UGARTE Report Released Date/Time: Oct 23, 2022 03:11 PM Reporting Lab: [facility] [place] [facility] [address] [facility] [address] Performing Lab: [facility] [place] [facility] [address] [facility] [address] [facility] [place] [facility] CBC AND DIFF (AUTO) NEUTROPHIL S [#/VOLUME] IN BLOOD BY AUTOMATED COUNT 3.14 10*3/uL 2.20 - 7.60 10/17 Specimen Type: BLOOD No comment entered. Ordering Provider: KIRA UGARTE Report Released Date/Time: Oct 23, 2022 03:11 PM Reporting Lab: [facility] [place] [facility] [address] [facility] [address] Performing Lab: [facility] [place] [facility] [address] [facility] [address] [facility] [place] [facility] CBC AND DIFF (AUTO) LYMPHOCYTE S [#/VOLUME] IN BLOOD BY AUTOMATED COUNT 1.09 10*3/uL 1.00 - 3.20 10/17 Specimen Type: BLOOD No comment entered. Ordering Provider: KIRA UGARTE Report Released Date/Time: Oct 23, 2022 03:11 PM Reporting Lab: [facility] [place] [facility] [address] [facility] [address] Performing Lab: [facility] [place] [facility] [address] [facility] [address] [facility] [place] [facility] CBC AND DIFF (AUTO) EOSINOPHIL S [#/VOLUME] IN BLOOD BY AUTOMATED COUNT 0.14 10*3/uL 0.03 - 0.44 10/17 Specimen Type: BLOOD No comment entered. Ordering Provider: KIRA UGARTE Report Released Date/Time: Oct 23, 2022 03:11 PM Reporting Lab: [facility] [place] [facility] [address] [facility] [address] Performing Lab: [facility] [place] [facility] [address] [facility] [address] [facility] [place] [facility] CBC AND DIFF (AUTO) BASOPHILS [#/VOLUME] IN BLOOD BY AUTOMATED COUNT 0.05 10*3/uL 0.01 - 0.13 10/17 Specimen Type: BLOOD No comment entered. Ordering Provider: KIRA UGARTE Report Released Date/Time: Oct 23, 2022 03:11 PM Reporting Lab: [facility] [place] [facility] [address] [facility] [address] Performing Lab: [facility] [place] [address] [address] [facility] [place] [facility] CBC AND DIFF (AUTO) IMMATURE GRANULOCYT ES/100 LEUKOCYTES IN BLOOD BY AUTOMATED COUNT 0.4 0.0 - 0.7 10/17 Specimen Type: BLOOD No comment entered. Ordering Provider: KIRA UGARTE Report Released Date/Time: Oct 23, 2022 03:11 PM Reporting Lab: [facility] [place] [facility] [address] [facility] [address] Performing Lab: [facility] [place] [address] [address] [facility] [place] [facility] CBC AND DIFF (AUTO) IMMATURE GRANULOCYT ES [#/VOLUME] IN BLOOD 0.02 10*3/uL 0.00 - 0.06 10/17 Specimen Type: BLOOD No comment entered. Ordering Provider: KIRA UGARTE Report Released Date/Time: Oct 23, 2022 03:11 PM Reporting Lab: [facility] [place] [facility] [address] [facility] [address] Performing Lab: [facility] [place] [facility] [address] [place] [address] [facility] [place] [facility] CBC AND DIFF (AUTO) NRBC % 0.0 0.0 - 0.0 10/17 Specimen Type: BLOOD No comment entered. Ordering Provider: KIRA UGARTE Report Released Date/Time: Oct 23, 2022 03:11 PM Reporting Lab: [facility]PITALRL TRN [facility] CENTERUSETS [facility] [address] [facility] [address] Performing Lab: [facility]OSPITALRL WSTRN [facility] CENTERUSEROSWE[facility] [address] [facility] [address] [facility]OSPITALRL TRN [facility] CENTERUSE [facility] CBC AND DIFF (AUTO) NRBC, ABS 0.00 10*3/uL 0.00 - 0.00 10/17 Specimen Type: BLOOD No comment entered. Ordering Provider: KIRA UGARTE Report Released Date/Time: Oct 23, 2022 03:11 PM Reporting Lab: [facility] HOSPITALRMONROE COUNTY HOSPITALN [address] [address] Performing Lab: [facility] HOSPITALRL TRN [facility] CENTERUSE[address] [address] [facility] HOSPITALRL [facility]ERN [facility]USE [facility] LIPID PANEL FASTING CHOLESTERO L [MASS/VOLU ME] IN SERUM OR PLASMA 167 mg/dL 10/13 Specimen Type: SERUM No comment entered. Ordering Provider: KIRA UGARTE Report Released Date/Time: Mar 23, 2022 02:08 PM Reporting Lab: [facility] HOSPITALRMONROE COUNTY HOSPITALN [address] [address] Performing Lab: [facility] HOSPITALRL TRN [facility] CENTERUSE[address] [address] [facility]OSPITALRL [facility]ERN [facility]USE [facility] LIPID PANEL FASTING TRIGLYCERI DE [MASS/VOLU ME] IN SERUM OR PLASMA 123 mg/dL 0 - 150 10/13 Specimen Type: SERUM No comment entered. Ordering Provider: KIRA UGARTE Report Released Date/Time: Mar 23, 2022 02:08 PM Reporting Lab: [facility] HOSPITALRST. VINCENT'S CHILTONTRN [facility] CENTERUSE[address] [address] Performing Lab: [facility] HOSPITALRMONROE COUNTY HOSPITALN [facility] CENTERUSE[address] [address] [facility]OSPITALRL [place]N [place] [facility] LIPID PANEL FASTING CHOLESTERO L IN LDL [MASS/VOLU ME] IN SERUM OR PLASMA BY MADELAINE Palm 94 mg/dL 0 - 129 10/13 Specimen Type: SERUM No comment entered. Ordering Provider: KIRA UGARTE Report Released Date/Time: Mar 23, 2022 02:08 PM Reporting Lab: [place] [facility] [facility] [address] [facility] [address] Performing Lab: [place] [facility] [facility] [address] [facility] [address] [facility]ITALRL [place] [place] [facility] LIPID PANEL FASTING CHOLESTERO L.TOTAL/CH OLESTEROL IN HDL [MASS RATIO] IN SERUM OR PLASMA 3.5 10/13 Specimen Type: SERUM No comment entered. Ordering Provider: KIRA UGARTE Report Released Date/Time: Mar 23, 2022 02:08 PM Reporting Lab: [facility] HOSPITALRL [place] [place] [address] [address] Performing Lab: [place] [facility] [place] [address] [address] [facility]OSPITALRL [place]N [place] [facility] LIPID PANEL FASTING CHOLESTERO L IN HDL [MASS/VOLU ME] IN SERUM OR PLASMA 48 mg/dL 40 - 60 10/13 Specimen Type: SERUM No comment entered. Ordering Provider: KIRA UGARTE Report Released Date/Time: Mar 23, 2022 02:08 PM Reporting Lab: [place] [facility] [place] [facility] [address] [facility] [address] Performing Lab: [place] [facility] [place] [address] [address] [facility]PITALRL [place] [place] [facility] BASIC METABOLI C PANEL (fasting ) UREA NITROGEN [MASS/VOLU ME] IN SERUM OR PLASMA 21 mg/dL 7 - 25 10/13 Specimen Type: SERUM No comment entered. Ordering Provider: KIRA UGARTE Report Released Date/Time: Mar 23, 2022 02:08 PM Reporting Lab: [place] [address] [place] [address] Performing Lab: [facility] HOSPITALRST. VINCENT'S CHILTONTRN [facility] CENTERUSEROSWE[facility] [address] [facility] [address] [facility] HOSPITALRMONROE COUNTY HOSPITALN [facility] CENTERUSE [facility] BASIC METABOLI C PANEL (fasting ) GLUCOSE [MASS/VOLU ME] IN SERUM OR PLASMA 99 mg/dL 65 - 100 10/13 Specimen Type: SERUM No comment entered. Ordering Provider: KIRA UGARTE Report Released Date/Time: Mar 23, 2022 02:08 PM Reporting Lab: [facility] HOSPITALRMONROE COUNTY HOSPITALN [facility] [address] [facility] [address] Performing Lab: [facility]N [address] [address] [facility]ITALN [facility] BASIC METABOLI C PANEL (fasting ) SODIUM [MOLES/VOL UME] IN SERUM OR PLASMA 140 mmol/L 135 - 145 10/13 Specimen Type: SERUM No comment entered. Ordering Provider: KIRA UGARTE Report Released Date/Time: Mar 23, 2022 02:08 PM Reporting Lab: [facility]ITALN [address] [address] Performing Lab: [facility]PITALN [facility] [address] [facility] [address] [facility] BASIC METABOLI C PANEL (fasting ) POTASSIUM [MOLES/VOL UME] IN SERUM OR PLASMA 4.3 mmol/L 3.5 - 5.0 10/13 Specimen Type: SERUM No comment entered. Ordering Provider: KIRA UGARTE Report Released Date/Time: Mar 23, 2022 02:08 PM Reporting Lab: [facility] HOSPITALRMONROE COUNTY HOSPITALN [facility] CENTERUSEROSWE[facility] [address] [facility] [address] Performing Lab: [facility]OSPITALRMONROE COUNTY HOSPITALN [facility] CENTERUSEROS[facility] [address] [facility] [address] [facility]ITALN [facility] BASIC METABOLI C PANEL (fasting ) CHLORIDE [MOLES/VOL UME] IN SERUM OR PLASMA 108 mmol/L 100 - 110 10/13 Specimen Type: SERUM No comment entered. Ordering Provider: KIRA UGARTE Report Released Date/Time: Mar 23, 2022 02:08 PM Reporting Lab: [place] [facility] [place] [facility] [address] [facility] [address] Performing Lab: [facility] HOSPITALRL WSTRN [facility] CENTERUSETS [facility] [address] [facility] [address] [facility] HOSPITALRL WSTRN [facility] CENTERUSE [facility] BASIC METABOLI C PANEL (fasting ) CARBON DIOXIDE, TOTAL [MOLES/VOL UME] IN SERUM OR PLASMA 23 meq/L 20 - 30 10/13 Specimen Type: SERUM No comment entered. Ordering Provider: KIRA UGARTE Report Released Date/Time: Mar 23, 2022 02:08 PM Reporting Lab: [facility] HOSPITALRL WSTRN [facility] CENTERUSE[address] [address] Performing Lab: [facility] HOSPITALRL WSTRN [facility] CENTERUSE[address] [address] [facility]OSPITALRMONROE COUNTY HOSPITALN [facility] BASIC METABOLI C PANEL (fasting ) CREATININE [MASS/VOLU ME] IN SERUM OR PLASMA 1.31 mg/dL 0.50 - 1.40 10/13 Specimen Type: SERUM No comment entered. Ordering Provider: KIRA UGARTE Report Released Date/Time: Mar 23, 2022 02:08 PM Reporting Lab: [facility] HOSPITALRL WSTRN [facility] CENTERUSETS [address] [address] Performing Lab: [facility] WSTRN [facility] CENTERUSETS [address] [address] [facility] HOSPITALRL TRN [facility] CENTERUSE [facility] BASIC METABOLI C PANEL (fasting ) GLOMERULAR FILTRATION RATE/1.73 SQ M.PREDICTE D [VOLUME RATE/AREA] IN SERUM, PLASMA OR BLOOD BY CREATININE -BASED FORMULA (CKD-EPI) 57 mL/min 10/13 L Specimen Type: SERUM No comment entered. Ordering Provider: KIRA UGARTE Report Released Date/Time: Mar 23, 2022 02:08 PM Reporting Lab: [facility] HOSPITALRL WSTRN [facility] CENTERUSE[address] [address] Performing Lab: [facility] TRN [facility] CENTERUSE[address] [address] [facility]OSPITALRL WSTRN [place] [facility] LIVER FUNCTION PROTEIN [MASS/VOLU ME] IN SERUM OR PLASMA 6.8 g/dL 6.0 - 8.3 10/13 Specimen Type: SERUM No comment entered. Ordering Provider: KIRA UGARTE Report Released Date/Time: Mar 23, 2022 02:08 PM Reporting Lab: [place] [facility] [place] [facility] [address] [facility] [address] Performing Lab: [place] [facility] [place] [facility] [address] [facility] [address] [facility] HOSPITALRL WSTRN MASSUSE [facility] LIVER FUNCTION ALBUMIN [MASS/VOLU ME] IN SERUM OR PLASMA 3.9 g/dL 3.5 - 5.0 10/13 Specimen Type: SERUM No comment entered. Ordering Provider: KIRA UGARTE Report Released Date/Time: Mar 23, 2022 02:08 PM Reporting Lab: [facility] [place] [address] [address] Performing Lab: [place] [facility] [place] [address] [address] [facility] HOSPITALRL WSTRN MASSUSE [facility] LIVER FUNCTION ALKALINE PHOSPHATAS E [ENZYMATIC ACTIVITY/V OLUME] IN SERUM OR PLASMA 85 U/L 40 - 150 10/13 Specimen Type: SERUM No comment entered. Ordering Provider: KIRA UGARTE Report Released Date/Time: Mar 23, 2022 02:08 PM Reporting Lab: [facility] [place] [address] [address] Performing Lab: [place] [facility] [place] [address] [address] [facility]OSPITALRL WSTRN [place] [facility] LIVER FUNCTION ASPARTATE AMINOTRANS FERASE [ENZYMATIC ACTIVITY/V OLUME] IN SERUM OR PLASMA 24 U/L 5 - 34 10/13 Specimen Type: SERUM No comment entered. Ordering Provider: KIRA UGARTE Report Released Date/Time: Mar 23, 2022 02:08 PM Reporting Lab: [place] [facility] [place] [address] [place] [address] Performing Lab: [facility] [address] [facility] [address] [facility] LIVER FUNCTION ALANINE AMINOTRANS FERASE [ENZYMATIC ACTIVITY/V OLUME] IN SERUM OR PLASMA 24 U/L 10/13 Specimen Type: SERUM No comment entered. Ordering Provider: KIRA UGARTE Report Released Date/Time: Mar 23, 2022 02:08 PM Reporting Lab: [facility] [address] [facility] [address] Performing Lab: [facility] [address] [facility] [address] [facility] LIVER FUNCTION BILIRUBIN. TOTAL [MASS/VOLU ME] IN SERUM OR PLASMA 0.7 mg/dL 0.2 - 1.2 10/13 Specimen Type: SERUM No comment entered. Ordering Provider: KIRA UGARTE Report Released Date/Time: Mar 23, 2022 02:08 PM Reporting Lab: [facility] [address] [facility] [address] Performing Lab: [facility] [address] [facility] [address] [facility] Vital Signs Combined list of inpatient and outpatient Vital Signs from Department of Defense and Veterans Affairs, ranging from 12 months to all on record, depending upon the facility. Vital Sign Value Date Comments Source SYSTOLIC BLOOD PRESSURE 144 06/09/19 25 11:36:04 [place] DIASTOLIC BLOOD PRESSURE 025 11:36:04 [place] PULSE OXIMETRY 98 06/09/2024 11:36:04 [place] PAIN 0 06/09/2024 11:36:04 [place] TEMPERATURE 97.2 06/09/2024 11:36:04 [place] PULSE 89 06/09/2024 11:36:04 [place] RESPIRATION 19 06/09/2024 11:36:04 [place] SYSTOLIC BLOOD PRESSURE 144 12/28/19 24 15:16:02 [place] DIASTOLIC BLOOD PRESSURE 77 024 15:16:02 [place] PULSE OXIMETRY 94 12/28/2023 15:16:02 [place] PAIN 2 12/28/2023 15:16:02 [place] TEMPERATURE 98.3 12/28/2023 15:16:02 [place] PULSE 80 12/28/2023 15:16:02 [place] RESPIRATION 20 12/28/2023 15:16:02 [place] SYSTOLIC BLOOD PRESSURE 157 10/25/19 24 08:43:36 [facility] [place] [facility] DIASTOLIC BLOOD PRESSURE 83 024 08:43:36 [facility] [place] [facility] PULSE OXIMETRY 95 10/25/2023 08:43:36 [facility] [place] [facility] WEIGHT 239 10/25/2023 08:43:36 [facility] [place] [facility] BMI 32 kg/m2 10/25/2023 08:43:36 [facility] [place] [facility] PAIN 0 10/25/2023 08:43:36 [facility] [place] [facility] HEIGHT 72 10/25/2023 08:43:36 [facility] [place] [facility] TEMPERATURE 97.3 10/25/2023 08:43:36 [facility] [place] [facility] PULSE 73 10/25/2023 08:43:36 [facility] [place] [facility] RESPIRATION 20 10/25/2023 08:43:36 [facility] Encounters Combined list of: 1) Encounters from [facility] facilities going backup to the last 18 months, not all [place] inpatient encounters are included; 2) Encounters from the Department of [facility] facilities going backup to 280 months. Location Location Details Encounter Type Encounter Number Reason For Visit Attending Provider ADM Date DC Date Status Disposition Source [facility] Outpatient Encounter [id number] 01/01 [facility] WEIGHT MGMT CLASS [id number] Diagnos is: ICD-10- CM E66.09 Other obesity due to excess calorie s GIOVANNI MUHAMMAD 01/04 [facility] [place] [facility] Outpatient Encounter [id number] 01/07 [facility] BEHAVE COUNS 2-10 [id number] Diagnos is: ICD-10- CM E66.09 Other obesity due to excess calorie s ADRY COELHO 01/[address] [place] [facility] MTMS BY PHARM ADDL 15 MIN [id number] Diagnos is: ICD-10- CM R73.03 Prediab etes STALLINGS,IMANI ABELA A 01/22 [place] [facility] Outpatient Encounter [id number] 01/26 [facility] Outpatient Encounter [id number] 01/27 [facility] PSYTX W PT 45 MINUTES [id number] Diagnos is: ICD-10- CM F41.9 Anxiety disorde r, unspeci fied VINOCOUR,J ILL M 01/29 [place] [facility] Outpatient Encounter [id number] 02/03 [facility] PSYTX W PT 30 MINUTES [id number] Diagnos is: ICD-10- CM F41.1 General ized anxiety disorde r VINOCOUR,J ILL M 02/05 [place] [facility] Outpatient Encounter [id number] 02/05 [facility] Outpatient Encounter [id number] 02/11 [facility] [place] PSYTX W PT 30 MINUTES [id number] Diagnos is: ICD-10- CM F41.9 Anxiety disorde r, unspeci fied VINOCOUR,J ILL M 02/19 [place] PSYTX W PT 30 MINUTES [id number] Diagnos is: ICD-10- CM F41.9 Anxiety disorde r, unspeci fied VINOCOUR,J ILL M 02/26 [place] PSYTX W PT 30 MINUTES [id number] Diagnos is: ICD-10- CM F41.9 Anxiety disorde r, unspeci fied VINOCOUR,J ILL M 03/12 [place] PSYTX W PT 30 MINUTES [id number] Diagnos is: ICD-10- CM F41.9 Anxiety disorde r, unspeci fied VINOCOUR,J ILL M 03/19 [place] [facility] Outpatient Encounter [id number] 03/30 [facility] Outpatient Encounter [id number] 04/01 [facility] MTMS BY PHARM ADDL 15 MIN [id number] Diagnos is: ICD-10- CM R73.03 Prediab etes IMANI STALLINGS A 04/02 [place] [facility] Outpatient Encounter [id number] 04/02 [facility] Outpatient Encounter [id number] 04/02 [facility] Outpatient Encounter [id number] 04/05 [facility] Out[facility] Encounter [id number] 04/12 [facility] Outpatient Encounter [id number] 04/13 [facility] OFFICE O/P EST LOW 20-29 MIN [id number] Diagnos is: ICD-10- CM L60.0 Ingrowi HANY Mario F 04/13 [facility] [place] [facility] Outpatient Encounter [id number] 04/13 [facility] Out[facility] Encounter [id number] 04/16 [facility] Out[facility] Encounter [id number] 04/16 [facility] Out[facility] Encounter [id number] 04/17 [facility] (631GE) QNHP OL DIG ASSMT&MGMT 5-10 [id number] Diagnos is: ICD-10- CM L57.0 Actinic keratos is BROOKE WALLACE 04/22 [facility] (631GE) [facility] Outpatient Encounter [id number] HANY MARCH ES F 04/27 [facility] Out[facility] Encounter [id number] 04/28 [facility] Out[facility] Encounter [id number] 04/28 [facility] Outpatient Encounter [id number] 04/29 [facility] Outpatient Encounter [id number] 04/29 [facility] Outpatient Encounter [id number] 05/07 [facility] Out[facility] Encounter [id number] 05/11 [facility] Outpatient Encounter [id number] 06/03 [facility] COMPRE OPH EXAM EST PT 1/> [id number] Diagnos is: ICD-10- CM Z96.1 Presenc e of intraoc ular lens LYSSA COLLINS H B 06/03 [facility] FIT SPECTACLES BIFOCAL [id number] Diagnos is: ICD-10- CM Z46.0 Encount er for fit/adj st of spectac les and contact lenses LYSSA COLLINS H B 06/04 [facility] [place] OFFICE O/P EST LOW 20 MIN [id number] Diagnos is: ICD-10- CM L60.3 Nail dystrop hy ROSS,CHARL ES F 06/07 [facility] OFF[facility] O/P EST LOW 20 MIN [id number] Diagnos is: ICD-10- CM R73.03 Prediab etes HANY MARCH ES F 08/23 [place] [facility] Outpatient Encounter [id number] [facility] Outpatient Encounter [id number] 09/16 [facility] Outpatient Encounter [id number] 10/14 [facility] OFFICE O/P EST MOD 30 MIN [id number] Diagnos is: ICD-10- CM Z00.01 Encount er for general adult medical exam w abnorma l finding s Cesar UGARTE 10/24 [facility] [place] [facility] Out[facility] Encounter [id number] 10/31 [facility] OFFICE O/P NEW MOD 45 MIN [id number] Diagnos is: ICD-10- CM M54.59 Other low back pain ALETA TATE RA 11/22 [facility] Out[facility] Encounter [id number] 12/02 [facility] SELF-MGMT EDUC & TRAIN 1 PT [id number] Diagnos is: ICD-10- CM E66.3 Alfred Cantu 12/05 [facility] Outpatient Encounter [id number] 1.12/13 [facility] Outpatient Encounter [id number] 1.12/13 [facility] Outpatient Encounter [id number] 1.12/19 [facility] Outpatient Encounter [id number] 1.12/19 [facility] Outpatient Encounter [id number] 1.12/22 [facility] Outpatient Encounter [id number] 1.12/23 [facility] MANUAL THERAPY 1/ REGIONS [id number] 1. Diagnos is: ICD-10- CM M54.59 Other low back pain ALETA TATE RA 12/23 [facility] [place] OFF/OP EST AUGUST X REQ PHY/QHP [id number] 1BY. Diagnos is: ICD-10- CM M79.661 Pain in right lower leg PAUL SANTILLAN IC K 12/27 [place] [facility] Outpatient Encounter [id number] 1.12/27 [facility] MECHANICAL TRACTION THERAPY [id number] 1. Diagnos is: ICD-10- CM M54.59 Other low back pain BEBETO,RIVER RA 12/30 [facility] Outpatient Encounter [id number] 12/30 [facility] MECHANICAL TRACTION THERAPY [id number] 1. Diagnos is: ICD-10- CM M54.59 Other low back pain ALETA TATE RA 01/05 [facility] MECHANICAL TRACTION THERAPY [id number] Diagnos is: ICD-10- CM M54.59 Other low back pain ALETA TATE RA 01/13 [facility] OFFICE O/P EST LOW 20 MIN [id number] Diagnos is: ICD-10- CM L60.3 Nail dystrop hy ROSS,CHARL ES F 01/17 [place] [facility] Outpatient Encounter [id number] [facility] Outpatient Encounter [id number] 01/17 [facility] Outpatient Encounter [id number] 01/20 [facility] Outpatient Encounter [id number] 01/30 [facility] Outpatient Encounter [id number] 02/03 [facility] Outpatient Encounter [id number] 02/09 [facility] Outpatient Encounter [id number] [facility] Outpatient Encounter [id number] 02/13 [facility] Outpatient Encounter [id number] 02/13 [facility] Outpatient Encounter [id number] 1.02/14 [facility] Outpatient Encounter [id number] 1.02/17 [facility] Outpatient Encounter [id number] [facility] MTMS BY PHARM ADDL 15 MIN [id number] Diagnos is: ICD-10- CM R73.03 Prediab etes HAYLIE,IMANI MCCORMICK A 02/23 [place] [facility] Out[facility]counter [id number] 1.03/16 [facility] Outpatient [facility]counter [id number] 03/20 [facility] Outpatient Encounter [id number] 03/21 [facility] Outpatient Encounter [id number] 04/10 [facility] Outpatient Encounter [id number] 1.04/11 [facility] Outpatient Encounter [id number] 1.04/14 [facility] Outpatient Encounter [id number] [facility] Outpatient Encounter [id number] [facility] [place] OFFICE O/P EST LOW 20 MIN [id number] Diagnos is: ICD-10- CM L60.0 Ingrowi ng nail JOAQUIM,HANY ES F 06/06 [place] [facility] Outpatient Encounter [id number] [facility] COMPRE OPH EXAM EST PT 1/> [id number] Diagnos is: ICD-10- CM Z96.1 Presenc e of intraoc ular lens DENNIS,LYSSA H B 06/08 [facility] FIT SPECTACLES BIFOCAL [id number] Diagnos is: ICD-10- CM Z46.0 Encount er for fit/adj st of spectac les and contact lenses DENNIS,LYSSA H B 06/08 [facility] [place] OFF/OP EST MAY X REQ PHY/QHP [id number] Diagnos is: ICD-10- CM R05.9 Cough, unspeci fied JACQUE,ER IC K 06/09 [facility] [place] [facility] Outpatient Encounter [id number] 06/09 [place] [facility] [place] [facility] Social History Combined list of available smoking, tobacco, and other social history from Department of Defense and Veterans Affairs facilities. Social History Type Response Date Comment Sourc e Tobacco smoking status [place] [facility]-TO[facility]ACCO NEVER USED 10/25/19 [place] History of tobacco use [place]-TOBACCO NEVER USED 03/23/2022 [place] History of tobacco use MO-TOBACCO NEVER USED 09/12/2020 [place] History of tobacco use MO-TOBACCO QUIT 5 TO < 15 YRS 05/31/2019 [place] Plan of Care List of future care activities from [facility] facilities. Additional future care activities may be listed in the Assessment and Plan section. Date/Time Care Activity Care Activity Detail Facili ty 10/10/2024 AMBULATORY - MEDICINE AMBULATORY - MEDICI [facility] 10/23/2024 AMBULATORY - MEDICINE AMBULATORY - MEDICI [facility] 06/09/2024 Laboratory - Chemistry Order HEM OGLOBIN A1C PANEL BLOOD (LAV-BLOOD) [facility] 06/09/2024 Laboratory - Chemistry Order BAS IC METABOLIC PANEL (non-fasting) BLOOD (SST-SERUM) [facility] 06/09/2024 Laboratory - Chemistry Order CBC BLOOD (L AV-BLOOD) [facility] 06/09/2024 Laboratory - Chemistry Order HEBER ROALBUMIN CREATININE RATIO PANEL URINE (RANDOM) [facility] 06/09/2024 Laboratory - Chemistry Order MARILYNN ER FUNCTION BLOOD (SST-SERUM) [facility] 06/09/2024 Laboratory - Chemistry Order LIP ID PANEL, NON FASTING BLOOD (SST-SERUM) [facility] Advance Directives List of completed, amended, or rescinded Advance Directives on record at [facility] facilities. An actual copy of the Directive is not included. Date Advance Directive Provider Source 04/24/2020 ADVANCE DIRECTIVE DWAINE DENT
--- OUTSIDE RECORDS SUMMARY | 2024-06-22 13:51 | XMS_ITS | Encounter Summary ---
Author Name [facility] [place] [place] [facility] Address [address] [place] [address] Care Team Providers Care Claims Adjuster Name Role Phone STEPHON UGARTE Primary Care [...] SUPPLEMEN ANTWAN MEDEX 2 Apr 26, 2017 [id number] ELIO CORTES PATIENT ANTHEM BCBS OF CT MEDICARE SUPPLEMEN ANTWAN COH RETIR EMENT Apr 26, 2017 [id number] [phone] ELIO CORT[place] SUPPLEMEN ANTWAN MEDEX 2 Apr 26, 2017 [id number] EL[place] SUPPLE[place]TWAN MEDEX 2 Apr 26, 2017 [id number] ELIO [place]ORT[place] SUPPLEMEN ANTWAN MEDEX 2 Apr 26, 2017 [id number] [phone] ELIO CORTES PATIENT MEDICARE (WNR) MEDICARE (M) PART A Oct 24, 2012 PART A [id number] ELIO CORTES PATIENT MEDICARE (WNR) MEDICARE (M) PART B Oct 24, 2012 PART B [id number] ELIO CORTES PATIENT MEDICARE (WNR) MEDICARE (M) PART A Oct 24, 2012 PART A [id number] [phone] ELIO CORTES PATIENT MEDICARE (WNR) MEDICARE (M) PART B Oct 24, 2012 PART B [id number] [phone] ELIO CORTES PATIENT MEDICARE (WNR) MEDICARE (M) PART A Oct 24, 2012 PART A [id number] ELIO CORTES PATIENT MEDICARE (WNR) MEDICARE (M) PART B Oct 24, 2012 PART B [id number] ELIO CORTES PATIENT Selected Encounter This section includes the information on record at [place] for the Encounter. Date/Time Encounter Type Encounter Description Reason Pro vider Source Feb 19, 2024 08:09 PM Outpatient Encounter ADMIN PAT ACTIVTIES (MASNONCT) IHE Encounter Template Text not used by [place] Plan of Treatment: Future Appointments (+ 6 [...] - MEDICINE [place] [facility] [place] [facility] Apr 11, 2024 02:00 PM AM[place]UL[place] [facility] [place] [facility] Jun 06, 2024 11:00 AM AMBULATORY - MEDICINE [facility] Jun 08, 2024 03:30 PM [facility] [place] [place] [facility] Jun 09, 2024 11:15 AM AMBULATORY - MEDICINE [facility] Active, Pending, and Scheduled Orders This [...] PM Consult Order ACUPUNCTUR E/[facility] OUTPT Cons Program Aide Group Work[facility] Choice [place] [facility] Advance Directives: All historical and current [...] Encounter. Date/Time Encounter Note(s) Provider Source Feb 19, 2024 08:09 PM PHARMACY NOTE: LOCAL TITLE: PHARMACY CUSTOMER CARE MEDICATION RENEWAL STANDARD TITLE: PHARMACY NOTE DATE OF NOTE: FEB 19, 2024@20:09 ENTRY DATE: FEB 19, 2024@20:09:36 AUTHOR: ANUJ GASPAR COSIGNER: URGENCY: STATUS: COMPLETED Date: Jan Division: [place] Pt referred by Pharmacy Call Center for medication renewal: Non-controlled/maintenan ce medication Medications requested: [id number] OMEPRAZOLE 20MG EC CAPSULE 2ND REQUEST FOR RENEWAL Defer to primary care provider To be mailed . Please review and renew if appropriate. *This note was generated by [facility] Customer [facility]. If you have any questions or need assistance, do not contact this author. Please refer all questions to your local, on-site pharmacy departments. /harpal/ ANUJ GASPAR CPhT Pyrometer Operator, [place]/[facility]armacy Customer Care Signed: 02/19/2024 20:10 Receipt Acknowledged By: 04/25/2024 14:06 /es/ STEPHON UGARTE MD PHYSICIAN 02/20/2024 16:34 /es/ VALENTINA CODYN,RN-BC REGISTERED NURSE (RN) [facility]PAR [facility]
--- OUTSIDE RECORDS SUMMARY | 2024-06-22 13:51 | XMS_ITS | Encounter Summary ---
Author Name [facility] [place] Organization [place] Address [address] [place] [address] Care Team Providers Care Community [facility] Program Representative Name Role Phone STEPHON UGARTE Primary [...] SUPPLEMEN ANTWAN MEDEX 2 Apr 26, 2017 [id number] ELIO CORTES PATIENT ANTHEM BCBS OF [place] MEDICARE SUPPLEMEN ANTWAN COH RETIR EMENT Apr 26, 2017 [id number] [phone] ELIO CORT[place] SUPPLEMEN ANTWAN MEDEX 2 Apr 26, 2017 [id number] ELIO [place]ORT[place] SUPPLEMEN ANTWAN MEDEX 2 Apr 26, 2017 [id number] ELIO [place]ORT[place] SUPPLEMEN ANTWAN MEDEX 2 Apr 26, 2017 [id number] ELIO CORTES PATIENT MEDICARE (WNR) MEDICARE (M) PART A Oct 24, 2012 PART A [id number] [phone] ELIO CORTES PATIENT MEDICARE (WNR) MEDICARE (M) PART B Oct 24, 2012 PART B [id number] ELIO CORTES PATIENT MEDICARE (WNR) MEDICARE (M) PART A Oct 24, 2012 PART A [id number] ELIO CORTES PATIENT MEDICARE (WNR) MEDICARE (M) PART B Oct 24, 2012 PART B [id number] LEIO CORTES PATIENT MEDICARE (WNR) MEDICARE (M) PART A Oct 24, 2012 PART A [id number] ELIO CORTES PATIENT MEDICARE (WNR) MEDICARE (M) PART B Oct 24, 2012 PART B [id number] ELIO CORTES PATIENT Selected Encounter This section includes the information on record at [place] for the Encounter. Date/Time Encounter Type Encounter Description Reason Provider Source Jun 08, 2024 04:12 PM FIT SPECTACLES BIFOCAL OPTOMETRY ICD-10-CM Z46.0 Encounter for fit/adjst of spectacles and contact lenses KIKI COLLINS Julee Encounter Template Text not used by [place] Assessments - Encounter Diagnoses This section includes the primary and secondary diagnoses documented for the Encounter. Date/Time Primary/Secondary Diagnosis Diagnosis Name Provider Source Jun 08, 2024 04:12 PM PRIMARY Encounter for fit/adjst of spectacles and contact lenses MENDEL EWING [place] [facility] Plan of Treatment: Future Appointments (+ 6 [...] 20 appointments. The data comes from all [facility]. Appointment Date/Time Appointment Type Appointme nt Facility Name Jun 09, 2024 11:15 AM AMBULATORY - MEDICINE [facility] Oct 10, 2024 11:00 AM AMBULATORY - MEDICINE [facility] Oct 23, 2024 01:00 PM AMBULATORY - MEDICINE [facility] Active, Pending, and Scheduled Orders This section includes a listing of several types of active, pending, and scheduled orders, including clinic medications orders, diagnostic test orders, procedure orders and consult orders; where the start date of the order is 45 days before the date of the Encounter or 45 days after the date of theEncounter. The data comes from all [facility]. Test Date/Time Test Type Test Details Facility Name Jun 09, 2024 12:00 AM Laboratory - Chemi stry Order HEMOGLOBIN A1C PANEL BLOOD (LAV-BLOOD) [facility] Jun 09, 2024 12:00 AM Laboratory - Chemi stry Order BASIC METABOLIC PANEL (non-fasting) BLOOD (SST-SERUM) [facility] 14, 2025 12:00 AM Laboratory - Chemi stry Order CBC BLOOD (LAV-BLOOD) [facility] Jun 09, 2024 12:00 AM Laboratory - Chemi stry Order MICROALBUMIN CREATININE RATIO PANEL URINE (RANDOM) [facility] Jun 09, 2024 12:00 AM Laboratory - Chemi stry Order LIVER FUNCTION BLOOD (SST-SERUM) [facility] Jun 09, 2024 12:00 AM Laboratory - Chemi stry Order LIPID PANEL, NON FASTING BLOOD (SST-SERUM) [facility] Lab Results: +/- 30 days of the encounter This section includes the Chemistry and Hematology Lab Results on record with [place] for the patient. Radiology Reports and Pathology Reports are provided separately, in subsequent sections. Lab Results This section contains the Chemistry/Hematology Results that were resulted 30 days before or 30 daysafter the date of the Encounter. Date/Time Source Result Type Result - Unit Interpretation Reference Range Comment Jun 09, 2024 11:41 AM [facility] COVID-19 FLU/RSV DIAGNOSTIC PANEL Speci men Type: NASOPHARYNX Comment: This test is authorized for emergency use only. False negative results may occur if virus is present at levels below the analytical limit of detection.Nega tive results do not preclude SARS-CoV-2, influenza or RSV infection and should not be used as the sole basis for treatment or other patient management decisions.[facility] guillermo FLUVID: HCPs: https://www.[employer] a.gov/media2434/download. Patients: https://www.[employer] a.gov/2435/download Ordering Provider: MALACHI MORALES Report Released Date/Time: Jun 09, 2024 11:33 AM Reporting Lab: [address] [address] Performing Lab: [address] [address] COVID-19 PCR (FLUVID) NEGATIVE NEGATIVE FLU A PCR (FLUVID) POSITIVE FLU B PCR (FLUVID) NEGATIVE RSV PCR (FLUVID) NEGATIVE Advance Directives: All historical and current Section Date Range: From patient's date of to the date document was created. This section includes ALL of a patient's completed or amended [place] Advance and Rescinded Directives. The entries below indicate that a directive exists for the patient, but an actual copy is not included with this document. The data comes from all [place] facilities. Date Advance Directives Provider Source Apr 24, 2020 ADVANCE DIRECTIVE DWAINE DENT Encounter Notes: All associated encounter notes This section contains the clinical notes associated to the Encounter. Date/Time Encounter Note(s) Provider Source Jun 08, 2024 04:12 PM OPTOMETRY NOTE: LOCAL TITLE: OPTOMETRY NOTE STANDARD TITLE: OPTOMETRY NOTE DATE OF NOTE: JUN 08, 2024@16:12 ENTRY DATE: JUN 08, 2024@16:12:47 AUTHOR: TAZ PERKINS EXP COSIGNER: URGENCY: STATUS: COMPLETED OPTOMETRY NOTE Has ADDENDA The quote provided below is for informational purposes only. Please verify prior to the creation of a purchase order. ELIO HILL 1430 RX INFORMATION OD -0.50 -0.50 X160 Add:+2.50 Pzm:0.00 Dir: Prz2:0.00 Dir2: OS 0.00 0.00 X Add:+2.50 Pzm:0.00 Dir: Prz2:0.00 Dir2: FITTING INFORMATION FPD:63 NPD:60 Hubbard:R: L: SEG HT:R:14 L:14 Tint:BROWN Shade:3 VA Billable Items FRAME: BIG TWIST TORTOISE 18145 Right Lens: PLASTIC BIFOCAL FT28 1.498 PLASTIC CR39 Left Lens: PLASTIC BIFOCAL FT28 1.498 PLASTIC CR39 UV400 SOLID TINT CLIN items Open Market - Open Market Frame 0002 - Bifocal - Glass Plastic Poly The quote provided below is for informational purposes only. Please verify prior to the creation of a purchase order. ELIO HILL 1430 RX INFORMATION OD -0.50 -0.50 X160 Add:+2.50 Pzm:0.00 Dir: Prz2:0.00 Dir2: OS 0.00 0.00 X Add:+2.50 Pzm:0.00 Dir: Prz2:0.00 Dir2: FITTING INFORMATION FPD:63 NPD:60 Hubbard:R: L: SEG HT:R:14 L:14 Tint:None Shade:None VA Billable Items FRAME: BIG TWIST BLACK/CRYSTAL 145 Right Lens: PLASTIC BIFOCAL FT28 1.498 PLASTIC CR39 Left Lens: PLASTIC BIFOCAL FT28 1.498 PLASTIC CR39 KLEAR ANTI-REFLECTIVE COATING CLIN items Open Market - AR Coating Open Market - Open Market Frame 0002 - Bifocal - Glass Plastic Poly /harpal/ TAZ PERKINS THEOLOGY PROFESSOR Signed: 06/08/2024 16:13 Receipt Acknowledged By: 06/09/2024 09:18 /harpal/ Mendel Ewing Optometry Health Hse Coordinator 06/09/2024 ADDENDUM STATUS: COMPLETED PDS Card Reader fit patient with 2 pair(s) of ft28 eyeglasses on 06/08/2024 as directed by provider. Optometry Health Hse Coordinator entered consult(s) for order on behalf of provider. /harpal/ Mendel Ewing Optometry Health Hse Coordinator Signed: 06/09/2024 09:20 TAZ PERKINS [facility] [place] [facility]
--- OUTSIDE RECORDS SUMMARY | 2024-06-22 13:51 | XMS_ITS | Encounter Summary ---
Author Name [facility] [place] Organization [place] Address [address] [place] [address] Care Team Providers Care Bowling Alley Refinisher Name Role Phone STEPHON UGARTE Primary Care [...] SUPPLEMEN ANTWAN MEDEX 2 Apr 26, 2017 [id number] ELIO CORTES PATIENT ANTHEM BCBS OF CT MEDICARE SUPPLEMEN ANTWAN COH RETIR EMENT Apr 26, 2017 [id number] ELIO CORTES PATIENT [place] SUPPLEMEN ANTWAN MEDEX 2 Apr 26, 2017 [id number] ELIO [place]ORT[place] SUPPLEMEN ANTWAN MEDEX 2 Apr 26, 2017 [id number] [phone] ELIO CORT[place] SUPPLEMEN ANTWAN MEDEX 2 Apr 26, 2017 [id number] ELIO CORTES PATIENT MEDICARE (WNR) MEDICARE (M) PART A Oct 24, 2012 PART A [id number] ELIO CORTES PATIENT MEDICARE (WNR) MEDICARE (M) PART B Oct 24, 2012 PART B [id number] [phone] ELIO CORTES PATIENT MEDICARE (WNR) MEDICARE (M) PART A Oct 24, 2012 PART A [id number] ELIO CORTES PATIENT MEDICARE (WNR) MEDICARE (M) PART B Oct 24, 2012 PART B [id number] [phone] ELIO CORTES PATIENT MEDICARE (WNR) MEDICARE (M) PART A Oct 24, 2012 PART A [id number] ELIO CORTES PATIENT MEDICARE (WNR) MEDICARE (M) PART B Oct 24, 2012 PART B [id number] [phone] ELIO CORTES PATIENT Selected Encounter This section includes the information on record at [place] for the Encounter. Date/Time Encounter Type Encounter Description Reason Pro vider Source Jan 31, 2024 04:42 PM Outpatient Encounter ADMIN PAT ACTIVTIES (MASNONCT) IHE Encounter Template Text not used by [place] Plan of Treatment: Future Appointments (+ 6 [...] 24, 2024 02:30 PM AMBULATORY - MEDICINE [place] [facility] [place] [facility] Apr 11, 2024 02:00 PM AMBULATORY - MEDICINE [place] [facility] [place] [facility] Jun 06, 2024 11:00 AM AMBULATORY - MEDICINE [facility] Jun 08, 2024 03:30 PM [facility] [place] [facility] Jun 09, 2024 11:15 AM AMBULATORY - MEDICINE [facility] Active, Pending, and Scheduled Orders This section [...] PM Consult Order ACUPUNCTUR E/NHM OUTPT Cons [place] Cutter's Choice [place] [facility] Advance Directives: All historical and current [...] Encounter. Date/Time Encounter Note(s) Provider Source Jan 31, 2024 04:42 PM PHARMACY NOTE: LOCAL TITLE: PHARMACY CUSTOMER CARE MEDICATION RENEWAL STANDARD TITLE: PHARMACY NOTE DATE OF NOTE: JAN 31, 2024@16:42 ENTRY DATE: JAN 31, 2024@16:42:11 AUTHOR: MARIELLA ANGELES EXP COSIGNER: URGENCY: STATUS: COMPLETED Date: Jan Division: [facility] referred by Pharmacy Call Center for medication renewal: Non-controlled/maintenance medication Medications requested: [id number] AMLODIPINE BESYLATE 5MG TAB Defer to primary care provider To be mailed . Please review and renew if appropriate. *This note was generated by [facility]/[place] Pharmacy Customer Care. If you have any questions or need assistance, do not contact this author. Please refer all questions to your local, on-site pharmacy departments. /harpal/ MARIELLA ANGELES CPhT Stripper Machine Operator, [place]/Pharmacy Customer Care Signed: 01/31/2024 16:44 Receipt Acknowledged By: 04/25/2024 14:06 /es/ STEPHON UGARTE MD PHYSICIAN 02/01/2024 08:29 /harpal/ VALENTINA CODYN,RN-BC REGISTERED NURSE (RN) MARIELLA ANGELES CNTRL [facility]
--- OUTSIDE RECORDS SUMMARY | 2024-06-22 13:51 | XMS_ITS | Encounter Summary ---
Author Name Department [place] Address [address] [place] [address] Care Team Providers Care Horticulture Supervisor Name Role Phone STEPHON UGARTE Primary Care [...] SUPPLEMEN ANTWAN MEDEX 2 Apr 26, 2017 [id number] [phone] ELIO CORTES PATIENT ANTHEM BCBS OF CT MEDICARE SUPPLEMEN ANTWAN COH RETIR EMENT Apr 26, 2017 [id number] [phone] ELIO CORTES PATIENT [place] SUPPLEMEN ANTWAN MEDEX 2 Apr 26, 2017 [id number] ELIO CORTES [place] SUPPLEMEN ANTWAN MEDEX 2 Apr 26, 2017 [id number] [phone] ELIO CORTES [place] SUPPLEMEN ANTWAN MEDEX 2 Apr 26, 2017 [id number] ELIO CORTES PATIENT MEDICARE (WNR) MEDICARE (M) PART A Oct 24, 2012 PART A [id number] ELIO CORTES PATIENT MEDICARE (WNR) MEDICARE (M) PART B Oct 24, 2012 PART B [id number] ELIO CORTES PATIENT MEDICARE (WNR) MEDICARE (M) PART A Oct 24, 2012 PART A [id number] ELIO CORTES PATIENT MEDICARE (WNR) MEDICARE (M) PART B Oct 24, 2012 PART B [id number] ELIO CORTES PATIENT MEDICARE (WNR) MEDICARE (M) PART A Oct 24, 2012 PART A [id number] [phone] ELIO CORTES PATIENT MEDICARE (WNR) MEDICARE (M) PART B Oct 24, 2012 PART B [id number] ELIO CORTES PATIENT Selected Encounter This section includes the information on record at [place] for the Encounter. Date/Time Encounter Type Encounter Description Reason Pro vider Source Jan 21, 2024 12:52 PM Outpatient Encounter ADMIN PAT ACTIVTIES (MASNONCT) IHE Encounter Template Text not used by [place] Plan of Treatment: Future Appointments (+ 6 months) and Future Tests (+/- 45 days) The Plan of Treatment section includes future care activities for the patient from all [place] treatmentfacilities. This section includes future appointments and future orders which are active, pending or scheduled. Future Appointments This section includes appointments that were scheduled to occur 6 months from the date of the Encounter, up to a maximum of 20 appointments. The data comes from all [place] treatment facilities. Appointment Date/Time Appointment Type Appointme nt Facility Name Feb 24, 2024 02:30 PM AMBULATORY - MEDICINE [place] [facility] [place] [facility] Apr 11, 2024 02:00 PM AMBULATORY - MEDICINE [place] [facility] [place] [facility] Jun 06, 2024 11:00 AM AMBULATORY - MEDICINE [facility] Jun 08, 2024 03:30 PM [facility] [place] [facility] Jun 09, 2024 11:15 AM AMBULATORY [...] of theEncounter. The data comes from all [place] treatment facilities. Test Date/Time Test Type Test Details Facility Name Jan 06, 2024 04:17 PM Consult Order ACUPUNCTUR E/NHM OUTPT Cons Spout Liner Helper's Choice [place] [facility] Advance Directives: All historical and current Section Date Range: From patient's date of to the date document was created. This section includes ALL of a patient's completed or amended [place] Advance and Rescinded Directives. The entries below indicate that a directive exists for the patient, but an actual copy is not included with this document. The data comes from all [place] facilities. Date Advance Directives Provider Source Apr 24, 2020 ADVANCE DIRECTIVE DWAINE DENT Encounter Notes: All associated encounter notes This section contains the clinical notes associated to the Encounter. Date/Time Encounter Note(s) Provider Source Jan 21, 2024 12:52 PM PHARMACY NOTE: LOCAL TITLE: PHARMACY CUSTOMER CARE MEDICATION RENEWAL STANDARD TITLE: PHARMACY NOTE DATE OF NOTE: JAN 21, 2024@12:52 ENTRY DATE: JAN 21, 2024@12:52:17 AUTHOR: NINFA FINE EXP COSIGNER: URGENCY: STATUS: COMPLETED Date: Dec Division: [place] Pt referred by Pharmacy Call Center for medication renewal: Non-controlled/maintenanc e medication Medications requested: [id number] AMLODIPINE BESYLATE 5MG TAB Defer to primary care provider To be mailed . Please review and renew if appropriate. *This note was generated by [facility]/[place] Pharmacy Customer Care. If you have any questions or need assistance, do not contact this author. Please refer all questions to your local, on-site pharmacy departments. /harpal/ NINFA FINE Signed: 01/21/2024 12:52 Receipt Acknowledged By: 04/25/2024 14:06 /es/ STEPHON UGARTE MD PHYSICIAN 01/21/2024 14:28 /es/ Ally Rolon, RN Registered Nurse (RN) for [facility]
--- OUTSIDE RECORDS SUMMARY | 2024-06-22 13:51 | XMS_ITS | Encounter Summary ---
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 Name Role Phone STEPHON UGARTE Primary Care [...] SUPPLEMEN ANTWAN MEDEX 2 Apr 26, 2017 [id number] ELIO CORTES PATIENT ANTHEM BCBS OF CT MEDICARE SUPPLEMEN ANTWAN COH RETIR EMENT Apr 26, 2017 [id number] ELIO CORTES PATIENT [place] SUPPLEMEN ANTWAN MEDEX 2 Apr 26, 2017 [id number] [phone] ELIO CORT[place] SUPPLEMEN ANTWAN MEDEX 2 Apr 26, 2017 [id number] ELIO CORTES [place] SUPPLEMEN ANTWAN MEDEX 2 Apr 26, 2017 [id number] [phone] ELIO CORTES PATIENT MEDICARE (WNR) MEDICARE (M) PART A Oct 24, 2012 PART A [id number] ELIO CORTES PATIENT MEDICARE (WNR) MEDICARE (M) PART A Oct 24, 2012 PART A [id number] [phone] ELIO CORTES PATIENT MEDICARE (WNR) MEDICARE (M) PART B Oct 24, 2012 PART B [id number] ELIO CORTES PATIENT MEDICARE (WNR) MEDICARE (M) PART A Oct 24, 2012 PART A [id number] [phone] ELIO CORTES PATIENT MEDICARE (WNR) MEDICARE (M) PART B Oct 24, 2012 PART B [id number] ELIO CORTES PATIENT MEDICARE (WNR) MEDICARE (M) PART B Oct 24, 2012 PART B [id number] ELIO CORTES PATIENT Selected Encounter This section includes the information on record at [place] for the Encounter. Date/Time Encounter Type Encounter Description Reason Pro vider Source Dec 20, 2023 08:31 PM Outpatient Encounter ADMIN PAT ACTIVTIES (MASNONCT) IHE Encounter Template Text not used by [place] Plan of Treatment: Future Appointments (+ 6 months) and Future Tests (+/- 45 days) The Plan of Treatment section includes future care activities for the patient from all [place] treatmentfacilities. This section includes future appointments and future orders which are active, pending or scheduled. Future Appointments This section includes appointments that were scheduled to occur 6 months from the date of the Encounter, up to a maximum of 20 appointments. The data comes from all [place] treatment facilities. Appointment Date/Time Appointment Type Appointme nt Facility Name Dec 24, 2023 02:00 PM AMBULATORY - MEDICINE [place] [facility] [place] [facility] Dec 28, 2023 02:45 PM AMBULATORY - MEDICINE [facility] Dec 31, 2023 02:00 PM AMBULATORY - MEDICINE [facility] N[facility]L [facility] [place] [facility] Jan 06, 2024 03:00 PM AMBULATORY - MEDICINE [place] [facility] [facility] Jan 14, 2024 02:30 PM AMBULATORY - MEDICINE [place] [facility] [facility] Jan 18, 2024 11:30 AM AMBULATORY - [place]ICINE [place] [place] Feb 24, 2024 02:30 PM AMBULATORY - MEDICINE [place] [facility] [facility] Apr 11, 2024 02:00 PM AMBULATORY - MEDICINE [place] [facility] [facility] Jun 06, 2024 11:00 AM AMBULATORY - MEDICINE [place] Jun 08, 2024 03:30 PM AMBULATORY - MEDICINE [place] [facility] [facility] Jun 09, 2024 11:15 AM [facility] - [facility]ICINE [facility] Active, Pending, and Scheduled Orders This section includes a listing of several types of active, pending, and scheduled orders, including clinic medications orders, diagnostic test orders, procedure orders and consult orders; where the start date of the order is 45 days before the date of the Encounter or 45 days after the date of theEncounter. The data comes from all [place] treatment facilities. Test Date/Time Test Type Test Details Facility Name Jan 06, 2024 04:17 PM Consult Order ACUPUNCTUR E/NHM OUTPT Cons [place] Supervisor's Choice [place] [facility] Advance Directives: All historical and current Section Date Range: From patient's date of to the date document was created. This section includes ALL of a patient's completed or amended [place] Advance and Rescinded Directives. The entries below indicate that a directive exists for the patient, but an actual copy is not included with this document. The data comes from all [place] facilities. Date Advance Directives Provider Source Apr 24, 2020 ADVANCE DIRECTIVE DWAINE DENT Encounter Notes: All associated encounter notes This section contains the clinical notes associated to the Encounter. Date/Time Encounter Note(s) Provider Source Dec 20, 2023 08:31 PM PHARMACY NOTE: LOCAL TITLE: V1 PHARMACY CUSTOMER CARE MEDICATION RENEWAL STANDARD TITLE: PHARMACY NOTE DATE OF NOTE: DEC 20, 2023@20:31 ENTRY DATE: DEC 20, 2023@20:31:43 AUTHOR: CONNER VICK COSIGNER: URGENCY: STATUS: COMPLETED Date: Nov Division: [place] Pt referred by Pharmacy Call Center for medication renewal: Non-controlled/maintenanc e medication Medications requested: [id number] ESCITALOPRAM OXALATE 10MG TAB 2nd Request Defer to primary care provider To be mailed . Please review and renew if appropriate. *This note was generated by [facility]/[place] Pharmacy Customer Care. If you have any questions or need assistance, do not contact this author. Please refer all questions to your local, on-site pharmacy departments. /harpal/ CONNER VICK CPhT Repair Weaver, [place]/Pharmacy Customer Care Signed: 12/20/2023 20:32 Receipt Acknowledged By: 12/23/2023 15:19 /es/ STEPHON UGARTE MD PHYSICIAN 12/21/2023 08:36 /harpal/ VALENTINA CODYN,RN- REGISTERED NURSE (RN) CONNER VICK [facility]
--- OUTSIDE RECORDS SUMMARY | 2024-06-22 13:51 | XMS_ITS | Encounter Summary ---
Author Name [facility] Organization [facility] Address [address] [place] [address] Care Team Providers Care Fast Food Sales Assistant Name Role Phone STEPHON UGARTE Primary Care [...] SUPPLEMEN ANTWAN MEDEX 2 Apr 26, 2017 [id number] ELIO CORTES PATIENT ANTHEM BCBS OF [place] MEDICARE SUPPLEMEN ANTWAN COH RETIR EMENT Apr 26, 2017 [id number] ELIO CORTES [place] SU[employer] ANTW[employer] MEDEX 2 Apr 26, 2017 [id number] ELIO CORT[place] MEDEX 2 Apr 26, 2017 [id number] ELIO CORTES [place] [employer] MEDEX 2 Apr 26, 2017 [id number] ELIO CORTES PATIENT MEDICARE (WNR) MEDICARE (M) PART A Oct 24, 2012 PART A [id number] ELIO CORTES PATIENT MEDICARE (WNR) MEDICARE (M) PART B Oct 24, 2012 PART B [id number] [phone] ELIO CORTES PATIENT MEDICARE (WNR) MEDICARE (M) PART A Oct 24, 2012 PART A [id number] [phone] ELIO CORTES PATIENT MEDICARE (WNR) MEDICARE (M) PART B Oct 24, 2012 PART B [id number] ELIO CORTES PATIENT MEDICARE (WNR) MEDICARE (M) PART A Oct 24, 2012 PART A [id number] ELIO CORTES PATIENT MEDICARE (WNR) MEDICARE (M) PART B Oct 24, 2012 PART B [id number] [phone] ELIO CORTES PATIENT Selected Encounter This section includes the information on record at MD for the Encounter. Date/Time Encounter Type Encounter Description Reason Pro vider Source Feb 10, 2024 12:21 PM Outpatient Encounter ADMIN PAT ACTIVTIES (MASNONCT) IHE Encounter Template Text not used by MD Plan of Treatment: Future Appointments (+ 6 months) and Future Tests (+/- 45 days) The Plan of Treatment section includes future care activities for the patient from all [facility] treatmentfacilities. This section includes future appointments and future orders which are active, pending or scheduled. Future Appointments This section includes appointments that were scheduled to occur 6 months from the date of the Encounter, up to a maximum of 20 appointments. The data comes from all [facility] treatment facilities. Appointment Date/Time Appointment Type Appointme nt Facility Name Feb 24, 2024 02:30 PM AMBULATORY - MEDICINE [facility] [place] [facility] Apr 11, 2024 02:00 PM AMBULATORY - MEDICINE [facility] [place] [facility] Jun 06, 2024 11:00 AM AMBULATORY - MEDICINE [facility] Jun 08, 2024 03:30 PM AMBULATORY - MEDICINE MD [facility] Jun 09, 2024 11:15 AM [...] of theEncounter. The data comes from all [facility] treatment facilities. Test Date/Time Test Type Test Details Facility Name Jan 06, 2024 04:17 PM Consult Order ACUPUNCTUR E/NHM OUTPT Cons Strip Presser's Choice [facility] Advance Directives: All historical and current Section Date Range: From patient's date of to the date document was created. This section includes ALL of a patient's completed or amended MD Advance and Rescinded Directives. The entries below indicate that a directive exists for the patient, but an actual copy is not included with this document. The data comes from all [facility] facilities. Date Advance Directives Provider Source Apr 24, 2020 ADVANCE DIRECTIVE DWAINE DENT Encounter Notes: All associated encounter notes This section contains the clinical notes associated to the Encounter. Date/Time Encounter Note(s) Provider Source Feb 10, 2024 12:21 PM MEDICATION MGT NOT E: LOCAL TITLE: MEDICATION RENEWAL STANDARD TITLE: MEDICATION MGT NOTE DATE OF NOTE: FEB 10, 2024@12:21 ENTRY DATE: FEB 10, 2024@12:22:02 AUTHOR: JALEEL AQUINOIGNER: URGENCY: STATUS: COMPLETED Hello, is requesting a refill on the following prescription(s). Please renew if appropriate.Thank you for your time. Active Outpatient Medications Status = 1) AMLODIPINE BESYLATE 5MG TAB TAKE ONE TABLET BY MOUTH ACTIVE ONCE DAILY FOR BLOOD PRESSURE/HEART, DO NOT TAKE /es/ JALEEL AQUINO Signed: 02/10/2024 12:22 Receipt Acknowledged By: 03/22/2024 08:59 /es/ STEPHON UGARTE MD PHYSICIAN 02/10/2024 13:27 /es/ VALENTINA CODYN,RN-BC REGISTERED NURSE (RN) JALEEL AQUINO [facility]
--- OUTSIDE RECORDS SUMMARY | 2024-06-22 13:51 | XMS_ITS | Encounter Summary ---
Author Name [facility] [place] [facility] [place] [facility] [facility] [place] Address [address] [place] [address] Care Team Providers Care Guest Experience Manager Name Role Phone STEPHON MOYER Primary Care Provider Unava ilable Insurance Providers: [...] SUPPLEMEN ANTWAN MEDEX 2 Apr 26, 2017 [id number] MARCIAL VILLAELIO PATIENT ANTHEM BCBS OF [place] MEDICARE SUPPLEMEN ANTWAN COH RETIR EMENT Apr 26, 2017 [id number] [phone] MARCIAL VILLAELIO PATIENT [place] SUPPLEMEN ANTWAN MEDEX 2 Apr 26, 2017 [id number] MARCIAL DAISYELIO PATIENT [place] SUPPLEMEN ANTWAN MEDEX 2 Apr 26, 2017 [id number] [phone] MARCIAL VILLAELIO PATIENT [place] SUPPLEMEN ANTWAN MEDEX 2 Apr 26, 2017 [id number] ELIO CORTES PATIENT MEDICARE (WNR) MEDICARE (M) PART A Oct 24, 2012 PART A [id number] [phone] ELIO CORTES PATIENT MEDICARE (WNR) MEDICARE (M) PART B Oct 24, 2012 PART B [id number] ELIO CORTES PATIENT MEDICARE (WNR) MEDICARE (M) PART A Oct 24, 2012 PART A [id number] ELIO CORTES PATIENT MEDICARE (WNR) MEDICARE (M) PART B Oct 24, 2012 PART B [id number] ELIO CORTES PATIENT MEDICARE (WNR) MEDICARE (M) PART A Oct 24, 2012 PART A [id number] ELIO CORTES PATIENT MEDICARE (WNR) MEDICARE (M) PART B Oct 24, 2012 PART B [id number] [phone] ELIO CORTES PATIENT Selected Encounter This section includes the information on record at [place] for the Encounter. Date/Time Encounter Type Encounter Description Reason Provider Source Feb 24, 2024 02:30 PM MTMS BY BARBY BOSTON 15 MIN CLINICAL PHARMACY ICD-10-CM R73.03 Prediabetes SIMI STALLINGS [facility] Encounter Template Text not used by [place] Assessments - Encounter Diagnoses This section includes the primary and secondary diagnoses documented for the Encounter. Date/Time Primary/Secondary Diagnosis Diagnosis Name Provider Source Feb 28, 2024 01:30 PM PRIMARY Prediabetes SHARON STALLINGS [facility] Plan of Treatment: Future Appointments (+ 6 months) and Future Tests (+/- 45 days) The Plan of Treatment section includes future care activities for the patient from all [place] treatmentfacilities. This section includes future appointments and future orders which are active, pending or scheduled. Future Appointments This section includes appointments that were scheduled to occur 6 months from the date of the Encounter, up to a maximum of 20 appointments. The data comes from all [place] treatment facilities. Appointment Date/Time Appointment Type Appointme nt Facility Name Apr 11, 2024 02:00 PM AM[place]ULATORY [place]ICINE [place] [facility] Jun 06, 2024 11:00 AM [facility]ORY [facility] MED[facility] Jun 08, 2024 03:30 PM [place] [facility] Jun 09, 2024 11:15 AM AM[facility]ULATORY - MEDICINE [facility] Social History: Smoking Status (Most current) and Tobacco Use (All prior to encounter date) This section includes the most current, and the historical, smoking and tobacco- related health factors from the [place] facility where the Encounter took place. Current Smoking Status This section includes the most current smoking, or tobacco-related health factor, from the [place] facility where the Encounter took place. Date/Time Current Smoking Status Comment Facil ity Oct 25, 2023 08:30 AM VA-TOBACCO NEVER USED [facility] Tobacco Use History This section includes a history of the smoking, or tobacco-related health factors, that were collected on or before the date of the Encounter. The data comes from the [place] facility where the Encounter took place. Date/Time Smoking Status/Tobacco Use Comment F acility Mar 23, 2022 01:30 PM VA-TOBACCO NEVER USED [facility] September 12, 2020 10:30 AM VA-TOBACCO NEVER USED [facility] May 31, 2019 02:48 PM VA-TOBACCO FORMER USER [facility] May 31, 2019 02:48 PM [place]-TO[place]ACCO QUIT 5 TO < 15 YRS [facility] Advance Directives: All historical and current Section Date Range: From patient's date of to the date document was created. This section includes ALL of a patient's completed or amended [place] Advance and Rescinded Directives. The entries below indicate that a directive exists for the patient, but an actual copy is not included with this document. The data comes from all [place] facilities. Date Advance Directives Provider Source Apr 24, 2020 ADVANCE DIRECTIVE DWAINE DENT Encounter Notes: All associated encounter notes This section contains the clinical notes associated to the Encounter. Date/Time Encounter Note(s) Provider Source Feb 24, 2024 02:40 PM PHARMACY OUTPATIEN T NOTE: LOCAL TITLE: PHARMACY CLINIC NOTE STANDARD TITLE: PHARMACY OUTPATIENT NOTE DATE OF NOTE: FEB 24, 2024@14:40 ENTRY DATE: FEB 24, 2024@14:40:21 AUTHOR: SHARON STALLINGS COSIGNER: URGENCY: STATUS: COMPLETED Time Spent: 20 minutes Visit Type: f2f visit Patient referred by Dr. Moyer for consideration of weight management medications. --------- BMI: 32.4 Most recent BP: 129/75 (10/23/2022 14:36) S:Pt presents to the [facility]'s visit seeking GLP-1 treatment. Per prev: Pt presents for a f/up. He reports he has stopped MOVE program - got frustrated with it stating It was no information I do not know already. He stopped attending the MOVE after couple of visits. HE reports he stopped qsymia ~ 2 weeks ago after 2 or 3 weeks being on it. The reason given to the [place] underwriter as to why he stopped It was not working for me. Pt is asking about Mounjaro as he has seen it on TV and it apparently works. Per prev: Pt started Qsymia 3 weeks ago. Pt states he has not been feeling much of appetite suppression and asks is there anything else . Pt also hurt his left knee at home. He is currently looking for orthopedic surgeon appt as soon as possible. Pt continues to attend the OA groups with his girlfriend. Pt continues w/ MOVe program and reports that the information is all that he already knows, but he did loose 2 lbs thus far. Per prev: Pt has been dx w/ pre-diabetes, although most recent A1C at 5.6% in September,. Pt states he is stress eating and has been attending OA =>overaters annoymous but states it's not helping much. Pt also has been placed on prednisone for inflammation which also ignited the appetite. Pt has struggled w/ weight for many years. He states he is doing better now as he is in a relationship w/ a girlfriend who is supportive also attends OA. Pt wishes to loose weight ; has poor body image. Pt has trialed one oral agent in the past - Orlistat to which he did not respond well - he reports diarrhea. Pt also trialed metfomrin in the past without succees - ADR of diarrhea, severe. --------- PMH: Code Description F90.9 Attention deficit hyperactivity disorder ([facility] [id number]) R73.03 Prediabetes ([facility] [id number]) N18.32 Chronic Kidney Disease Stage 3B ([facility] [id number]) K21.9 Gastroesophageal reflux disease without esophagitis ([facility] [id number]) C61. Prostate cancer ([facility] [id number]) E78.00 Hypercholesterolemia ([facility] [id number]) I10. Hypertension ([facility] [id number]) R69. CoManagement (ICD-10-CM R69.) F41.1 Anxiety disorder ([facility] [id number]) ALLERGIES/ADRs: PENICILLIN, PEANUTS --------- Reviewed chart and noted the following: [ ] Patient has confounding comorbidities of: -HTN, DM, SERAFIN, dyslipidemia, metabolic syndrome, OA, GIMENEZ [ ] EtOH and tobacco use [ ] Patient desiring oral medication Active Outpatient Medications (including Supplies): Issue Date Status Last Fill Active Outpatient Medications Refills Expiration ======= 1) AMLODIPINE BESYLATE 5MG TAB Qty: 90 for ACTIVE Issu:01-22-22 90 days Sig: TAKE ONE TABLET BY MOUTH Refills: 0 Last:11-09-22 ONCE DAILY FOR BLOOD PRESSURE/HEART, Expr:01-23-23 DO NOT TAKE WITH GRAPEFRUIT JUICE 2) AMPHETAMINE/DEXTROAMPHET 10MG TAB Qty: ACTIVE Issu:11-11-22 60 for 30 days Sig: TAKE ONE TABLET Refills: 0 Last:11-11-22 BY MOUTH TWICE DAILY FOR ADHD WITH Expr:12-11-22 HYPERACTIVITY 3) ATORVASTATIN CALCIUM 80MG TAB Qty: 45 ACTIVE Issu:03-12-22 for 90 days Sig: TAKE ONE-HALF TABLET Refills: 2 Last:11-09-22 BY MOUTH ONCE DAILY FOR CHOLESTEROL Expr:03-13-23 4) BUSPIRONE HCL 10MG TAB Qty: 270 for 90 ACTIVE Issu:11-11-22 days Sig: TAKE ONE TABLET BY MOUTH Refills: 1 Last:11-11-22 THREE TIMES A DAY FOR ANXIETY Expr:11-12-23 5) ESCITALOPRAM OXALATE 10MG TAB Qty: 90 ACTIVE Issu:05-05-22 for 90 days Sig: TAKE ONE-HALF TABLET Refills: 0 Last:09-08-22 BY MOUTH TWICE DAILY FOR MAJOR Expr:05-06-23 DEPRESSIVE DISORDER FOR MOOD/DEPRESSION 6) FINASTERIDE 5MG TAB Qty: 90 for 90 days ACTIVE Issu:03-23-22 Sig: TAKE ONE TABLET BY MOUTH ONCE Refills: 2 Last:11-09-22 DAILY NEEDED FOR PROSTATE Expr:03-24-23 7) GABAPENTIN 600MG TAB Qty: 90 for 90 ACTIVE Issu:05-05-22 days Sig: TAKE ONE-HALF TABLET BY Refills: 2 Last:11-09-22 MOUTH TWICE DAILY FOR NERVE PAIN Expr:05-06-23 8) PEG 400 0.4%/PROP GLYCOL 0.3% OPH SOLN ACTIVE Issu:06-01-22 Qty: 60 for 90 days Sig: INSTILL 1 Refills: 3 Last:06-02-22 DROP INTO EACH EYE FOUR TIMES DAILY Expr:06-02-23 NEEDED DRY EYES 9) SUNSCREEN 30-50/AVOBENZONE/PABA-F LOTION ACTIVE Issu:10-23-22 Qty: 480 for 90 days Sig: APPLY A Refills: 3 Last:10-25-22 LIBERAL AMOUNT TOPICALLY NEEDED TO Expr:10-24-23 PREVENT SUNBURN 10) SUNSCREEN 30-50/PHY BLOCK/PABA-F FACE CR ACTIVE Issu:10-23-22 Qty: 360 for 90 days Sig: APPLY A Refills: 3 Last:10-25-22 LIBERAL AMOUNT TOPICALLY NEEDED TO Expr:10-24-23 PREVENT SUNBURN 11) TABLET CUTTER (PILL SPLITTER) Qty: 1 ACTIVE Issu:09-08-22 for 90 days Sig: USE CUTTER Refills: 0 Last:09-08-22 DIRECTED BY PROVIDER TO SPLIT TABLETS Expr:12-07-22 12) TADALAFIL 20MG TAB Qty: 6 for 30 days ACTIVE Issu:01-05-22 Sig: TAKE ONE TABLET BY MOUTH ONCE Refills: 1 Last:01-07-22 DAILY Expr:01-06-23 Start Date Active Non-[place] Medications Refills Expiration ======= 1) Non-VA CLONAZEPAM 0.5MG TAB Si.5MG ACTIVE BY MOUTH TWICE DAILY NEEDED 2) Non-VA FISH OIL 500MG DHA/EPA CAP,ORAL ACTIVE Sig: BY MOUTH ONCE DAILY 3) Non-VA GLUCOSAMINE CAP/TAB SiMG ACTIVE BY MOUTH ONCE DAILY 4) Non-VA LISINOPRIL 10MG TAB SiMG BY ACTIVE MOUTH ONCE DAILY 5) Non-VA LYSINE CAP/TAB SiMG BY ACTIVE MOUTH ONCE DAILY 6) Non-VA NAPROXEN 500MG TAB SiMG BY ACTIVE MOUTH ONCE DAILY 18 Total Medications PERTINENT LABS: ---- GENERAL CHEMISTRY ---- SERUM Jv 24 Reference 2023 11:26 Units Ranges GLUCOSE 94 mg/dL 65 - 100 BUN 23 mg/dL 7 - 25 CREATININE 1.32 mg/dL .5 - 1.4 eGFR(IDMS) Ref: >=60 CREAT mg/dL .5 - 1.5 eGFR See Eval Ref: See Eval Sodium 139 mmol/L 135 - 145 K+/Pot 4.5 mmol/L 3.5 - 5 CL 107 mmol/L 100 - 110 CO2 25 mEq/L 20 - 30 CA mg/dL 8.5 - 10.2 UricAci mg/dL 3.5 - 7.2 NH3/Amm PO4 mg/dL 2.5 - 5 T. PROT 6.5 g/dL 6 - 8.3 ALBUMIN 3.8 g/dL 3.5 - 5 T BILI 0.7 mg/dL .2 - 1.2 D. BILI mg/dL 0 - .5 AST 24 U/L 5 - 34 ALT 22 U/L <6 - 55 GGT U/L 10 - 65 ALK MELA 79 U/L 40 - 150 AMYLASE U/L 25 - 125 MAG mg/dL 1.6 - 2.6 ACETONE Ref: Neg T3 Total ng/dL 35 - 193 Comments: c ---- LIPID PANEL ---- ---- LIPID PANEL ---- SERUM Jv 24 Reference 2023 11:26 Units Ranges CHOL 156 mg/dL <7 - 199 TRIG 108 mg/dL 0 - 150 HDL 41 mg/dL 40 - 60 LDL-d mg/dL <10 - 120 LDL 93 mg/dL 0 - 129 CHO/HDL 3.8 Comments: c ---- HEMOGLOBIN A1C ---- BLOOD Jv 24 Oct 13 Mar 12 Reference 2023 2022 2021 11:26 10:25 11:10 Units Ranges HGB-A1c 5.8 H 5.6 5.7 H % 4 - 5. Patient must meet the following criteria to be eligible for weight loss medication management at [facility]: [x ] Verifiable participation in a comprehensive lifestyle intervention that targets all three aspects of weight management: diet, physical activity, behavioral changes (i.e. MOVE program, [employer], weight watchers) [x ] BMI is greater than or equal to 30 kg/m2 OR BMI is greater than or equal to 27 kg/m2 with at least one weight-related comorbidity [x ] Medication regimen has been reviewed to identify and discontinue medications associated with weight gain when clinically safe and appropriate Medications Associated with Weight Gain: ( ) anticonvulsants: ( ) antidepressants ( ) antipyschotics ( ) beta-blockers: ( ) glucocorticoids ( ) long-acting injectable contraceptives ( ) sulfonylureas ( ) insulin ( ) thiazolidinediones Common Exclusion Criteria: [n/a ] [ ] Concurrent use of another medication FDA approved for weight loss Review of Data, Drug Interactions, PBM Criteria for Use (CFU) and National PBM Guidance on Selection of a Weight Management Medication: 1. Bupropion/Naltrexone (Contrave): Exclusion criteria: [x ] Uncontrolled hypertension [ ] History of seizure disorder, bulimia, or anorexia nervosa [ ] Concurrent opioid use or use of opioids within the last 7 to 10 days [ ] Undergoing abrupt discontinuation of alcohol, benzodiazepines, barbiturates, and antiepileptic drugs [ ] Concurrent use of another form of naltrexone and/or bupropion [ ] Concurrent use or use of a monoamine oxidase inhibitor in the past 14 days [ ] Concurrent use of a CYP2B6 inducer (e.g., ritonavir, efavirenz, phenobarbital, phenytoin, etc.) [ ] End stage renal disease [ ] Severe hepatic impairment [ ] Major depressive disorder especially in patients 24 years of age or younger (unless a mental health consultation supports benefits of naltrexone/bupropion in patients at risk for suicidal thoughts or behaviors) Additional considerations: - Pt has unctonrolled BP : currently on amlodopine and lisinopril 2. Phentermine/Topiramate (Qsymia): Exclusion criteria: [ ] Glaucoma [ ] Hyperthyroidism [ ] Recent cardiac or cerebrovascular event (within past 6 months) [ ] Unstable angina [ ] End stage renal disease on dialysis [ ] Severe hepatic impairment (Child-Guzman Class C) [ ] History of cholelithiasis (within the past 6 months) [ ] History of nephrolithiasis [ ] Patient has history of suicidal attempts or active suicidal ideation (unless mental health consultation supports benefit of phentermine/ topiramate in patient with history of suicide attempts or recent suicidal ideation) [ ] Use of a monoamine oxidase inhibitor within the past 14 days [ ] Concomitant use of an oral carbonic anhydrase inhibitor [ ] Prescribed topiramate for another condition (e.g., seizures, migraine headache) where the addition of phentermine/topiramate would exceed a total dose of 400 mg topiramate per day Additional considerations: - pt started trial in November, 3. Orlistat => pt trialed 3-4 years ago w/ ADR of severe diarrhea Exclusion criteria: [ ] Chronic malabsorption syndrome or chronic diarrhea [ ] History of cholestasis, hyperoxaluria or calcium oxalate nephrolithiasis 4. Liraglutide (Saxenda): Exclusion criteria: [ ] Type 1 diabetes [ ] Personal or family history of medullary thyroid carcinoma or with Multiple Endocrine Neoplasia syndrome type 2 (MEN 2) [ ] Severe gastrointestinal dysmotility, including gastroparesis [ ] History of pancreatitis (does not pertain to patients for whom the cause of pancreatitis is known and no longer presents a risk) [ ] Patient has a history of suicidal attempts or active suicidal ideation (unless a mental health consultation supports benefits of liraglutide in a patient with a history of suicide attempts or recent suicidal ideation) Additional inclusion criteria: The answer to ONE of the following must be fulfilled in order to meet criteria for liraglutide (Saxenda). [ ] Patient has had an inadequate response, contraindication or intolerance to all [place] National Formulary agents for chronic weight management (e.g., phentermine/topiramate; naltrexone/bupropion; orlistat) [ ] Patient meets diagnostic criteria for prediabetes [ ] Patient has type 2 diabetes AND is unable to use semaglutide (OZEMPIC) as per the Criteria for Use for management of diabetes 5. Semaglutide (Wegovy) Exclusion criteria: [ ] 1 Type 1 diabetes [ ] Personal or family history of medullary thyroid carcinoma or with Multiple Endocrine Neoplasia syndrome type 2 [ ] Severe gastrointestinal dysmotility, including gastroparesis [ ] History of pancreatitis (does not pertain to patients for whom the cause of pancreatitis is known and no longer presents a risk) [ ] The patient has a history of suicidal attempts or active suicidal ideation (unless a mental health consultation supports benefits of semaglutide in a patient with a history of suicide attempts or recent suicidal ideation) Additional inclusion criteria: The answer to ONE of the following must be fulfilled in order to meet criteria for semaglutide (Wegovy). [ ] Patient has an inadequate response, contraindication or intolerance to at least two [place] National Formulary agents for chronic weight management [ ] Patient with BMI >/= 40 OR BMI 35 to < 40 with a significant or difficult to manage weight-related condition or is unable to achieve weight loss goals required for surgery [ ] Patient has type 2 diabetes treated with semaglutide (Ozempic) AND requires additional weight loss to achieve great than or equal to 5% reduction in initial body weight GLP-1 agents currently no new starts d/t drug shortage NUTRITION Pt wakes up at 8 AM B: 9-9:30 AM: Cereal raisin bran coffee L: cheesburger or turkey sandwich and chips one taco in between D: MGM - chicken wrap w/ malaysian fries usually take out foods - pizza; burger vanesa apple bees malaysian fries Snacks: chips, protein bar , soft serve ice cream Pt continues to overat at night time Drinks: water ~ 48 oz /day ; gatorade no sugar; diet soda , diet coke SOCIAL HISTORY: ETOH ; NONE SMOKING: NONE no hx of pancretitis or MTN pt had skin cancer and prstate cancer Exercise: every day ; pt walks d/t knees pain 12-15 minutes 2-3 x day; gym rides bike x 12 minutes weight lift Weight 09/12/20 => 221 lb s 10/23/22 => 232 lbs 01/22/23 => 230 lbs 03/31/23 => 236.5 lbs 10/2023 => 239 lbs ------ goal weight: 212-215 lbs SUMMARY OF RECOMMENDATIONS: Per prev notes: Reviewed w/ pt the titration of Qsymia that should be happening right now. Will request the PcP to kindly titrate the medication to phentermine 7.5 mg/topiramate 46 mg once daily for 12 weeks. Pt is tolerating the Qsymia very well w/ no ADr's. Recommend dose titration to achieve the desired appetite supperssion. Per up-to-date: Oral: Initial: Phentermine 3.75 mg/topiramate 23 mg once daily for 14 days. Increase dose as tolerated to phentermine 7.5 mg/topiramate 46 mg once daily for 12 weeks, then evaluate weight loss. If =3% of baseline body weight has not been lost, either discontinue therapy with a gradual taper (eg, switch from daily dosing to every other day dosing for at least 1 week before discontinuing) or escalate the dose based on tolerability and patient preference. Dose may be escalated to phentermine 11.25 mg/topiramate 69 mg once daily for 14 days, and then to a maximum dose of phentermine 15 mg/topiramate 92 mg once daily. Evaluate weight loss after 12 weeks on phentermine 15 mg/topiramate 92 mg; if = 5% of baseline body weight has not been lost, discontinue therapy with a gradual taper (ie, switch from daily dosing to [id number]-[id number]-ghf dosing for at least 1 week before discontinuing) (Ref). Discussed the MH componenet of the weight loss. Pt cotninues to struggle w/ the overeating. Recommended the PC-MH integration consult pt agreed. Reviewed nutrition. pt to c/t on current regimen + MOVE program. 04/02/23: Reviewed the nutrition w/ the . Pt is overeating particularly fast food: pizza, cheesburgers, sweets, etc. He states per above MOVE program and/or MH is not helpful/of use for him. He is looking for a medication that will make him loose weight. Reviewed w/ [place] erendira proper duration of Qsymia for weight loss and commented it's likely that pt has aborted the treatment too early. Pt is unsure if he wants to restart - he is looking for something better . Explained to the pt that GLP-1 continue to be on backorder and we are unable at the [place] to initiate/approve this class for weight loss at this time. Strongly recommended to return to MOVE program and MH assistance for his overeating. Pt declined the recommendations of this va underwriter. At this time this va underwriter is unable to assist the [place]. No further appt will be scheduled. 02/24/24: Lengthy discussion w/ about weight loss. Pt is seeking medications only. Per prev. notes he did not finish appropriate titration of Qsymia and does not wish to retrial even though he did not experience any ADR's. Pt at this time does not meet criteria for GLP-1 therapy - due to the fact he is not willing to enroll into the MOVE program. Confirmed w/ the injury prevention coordinator pt has attended only one session of the MOVE program in last year when CPP referred the to it. Pt considers MOVE program useless . Discussed MH component of his obesity as pt admits to be overeater and used to be in the support group: overeater annonymous. Pt was solely focused on obtaining medications for the weight loss throughout todays visit, not ineterested at all in lifestyle changes. Discussed pre-diabetes. Pt wishes to trial metfomrin. eGFR 56ml/min on 10/2023 will recommend titration. Will also prescribe glucose meter + supplies pre-diabetes: - metformin 500 mg daily x 7 days then increase to 500 mg bid - start SMBG NEXT SCHEDULED F/UP: pt will not have a scheduled follow up w/ this provider. HE was encouraged to re-enroll into MOVE program and seek MH assistance w/ overeating. f/up w/ pcp PBM PharmD Pharmacotherapy Rem V12: PHARMACIST INTERVENTIONS: PREDIABETES Medication Intervention(s) Initiate new medication Plan: start metformin Medication monitoring, no dosage change required, continue to monitor and assess /harpal/ SHARON STALLINGS CLINICAL STONEWORKING SANDER Signed: 02/28/2024 13:38 Receipt Acknowledged By: 03/02/2024 09:44 /harpal/ MALACHI MORALES NP NURSE PRACTITIONER [facility]ARON [place]ALL[place]
--- OUTSIDE RECORDS SUMMARY | 2024-06-22 13:51 | XMS_ITS | Encounter Summary ---
Author Name [facility] [place] Organization [place] Address [address] [place] [address] Care Team Providers Care Plaster Tender Name Role Phone STEPHON UGARTE Primary Care [...] SUPPLEMEN ANTWAN MEDEX 2 Apr 26, 2017 [id number] ELIO CORTES PATIENT ANTHEM BCBS OF CT MEDICARE SUPPLEMEN ANTWAN COH RETIR EMENT Apr 26, 2017 [id number] [phone] ELIO CORT[place] SUPPLEMEN ANTWAN MEDEX 2 Apr 26, 2017 [id number] ELIO [place]ORT[place] SUPPLEMEN ANTWAN MEDEX 2 Apr 26, 2017 [id number] ELIO [place]ORT[place] SUPPLEMEN ANTWAN MEDEX 2 Apr 26, 2017 [id number] ELIO CORTES PATIENT MEDICARE (WNR) MEDICARE (M) PART A Oct 24, 2012 PART A [id number] ELIO CORTES PATIENT MEDICARE (WNR) MEDICARE (M) PART B Oct 24, 2012 PART B [id number] ELIO CORTES PATIENT MEDICARE (WNR) MEDICARE (M) PART A Oct 24, 2012 PART A [id number] ELIO CORTES PATIENT MEDICARE (WNR) MEDICARE (M) PART B Oct 24, 2012 PART B [id number] [phone] ELIO CORTES PATIENT MEDICARE (WNR) MEDICARE (M) PART A Oct 24, 2012 PART A [id number] ELIO CORTES PATIENT MEDICARE (WNR) MEDICARE (M) PART B Oct 24, 2012 PART B [id number] [phone] ELIO CORTES PATIENT Selected Encounter This section includes the information on record at [place] for the Encounter. Date/Time Encounter Type Encounter Description Reason Pro vider Source Apr 10, 2024 10:25 AM Outpatient Encounter ADMIN PAT ACTIVTIES (MASNONCT) IHE Encounter Template Text not used by [place] Plan of Treatment: Future Appointments (+ 6 months) and Future Tests (+/- 45 days) The Plan of Treatment section includes future care activities for the patient from all [place] treatmentfacilities. This section includes future appointments and future orders which are active, pending or scheduled. Future Appointments This section includes appointments that were scheduled to occur 6 months from the date of the Encounter, up to a maximum of 20 appointments. The data comes from all [place] treatment facilities. Appointment Date/Time Appointment Type Appointme nt Facility Name Apr 11, 2024 02:00 PM [facility] Jun 06, 2024 11:00 AM AMBULATORY - MEDICINE [facility] Jun 08, 2024 03:30 PM AMBULATORY MEDICINE [facility] Jun 09, 2024 11:15 AM AMBULATORY - MEDICINE [facility] Advance Directives: All historical and current Section Date Range: From patient's date of to the date document was created. This section includes ALL of a patient's completed or amended [place] Advance and Rescinded Directives. The entries below indicate that a directive exists for the patient, but an actual copy is not included with this document. The data comes from all [place] facilities. Date Advance Directives Provider Source Apr 24, 2020 ADVANCE DIRECTIVE JESSICA DENTCesar RENTERIA Encounter Notes: All associated encounter notes This section contains the clinical notes associated to the Encounter. Date/Time Encounter Note(s) Provider Source Apr 10, 2024 10:25 AM PHARMACY NOTE: LOCAL TITLE: PHARMACY CUSTOMER CARE MEDICATION RENEWAL STANDARD TITLE: PHARMACY NOTE DATE OF NOTE: APR 10, 2024@10:25 ENTRY DATE: APR 10, 2024@10:25:18 AUTHOR: SKYLA COX EXP COSIGNER: URGENCY: STATUS: COMPLETED Date: Mar Division: [place] Pt referred by Pharmacy Call Center for medication renewal: Non-controlled/maintenan ce medication Medications requested: [id number] OMEPRAZOLE 20MG EC CAP Defer to primary care provider To be mailed. Please review and renew if appropriate. *This note was generated by [facility] Pharmacy Customer Care. If you have any questions or need assistance, do not contact this author. Please refer all questions to your local, on-site pharmacy departments. /harpal/ Skyla Cox CPhT [employer] [place], [place]/Pharmacy Customer Care Signed: 04/10/2024 10:25 Receipt Acknowledged By: 04/11/2024 12:23 /es/ Veronica Carr RN Registered Nurse for BAMBI BARRERA 04/14/2024 10:22 /es/ MALACHI MORALES NP NURSE PRACTITIONER SKYLA COX IN [facility]
--- OUTSIDE RECORDS SUMMARY | 2024-06-22 13:51 | XMS_ITS | Encounter Summary ---
Author Name [facility] [place] Organization [facility] [place] Address [address] [place] [address] Care Team Providers Care Dairy Equipment Specialist Name Role Phone STEPHON UGARTE Primary Care [...] SUPPLEMEN ANTWAN MEDEX 2 Apr 26, 2017 [id number] ELIO CORTES PATIENT ANTHEM BCBS OF CT MEDICARE SUPPLEMEN ANTWAN COH RETIR EMENT Apr 26, 2017 [id number] ELIO [place] SUPPLEMEN ANTWAN MEDEX 2 Apr 26, 2017 [id number] ELIO [place] SUPPLEMEN ANTWAN MEDEX 2 Apr 26, 2017 [id number] ELIO [place] SUPPLEMEN ANTWAN MEDEX 2 Apr 26, 2017 [id number] ELIO CORTES PATIENT MEDICARE (WNR) MEDICARE (M) PART A Oct 24, 2012 PART A [id number] ELIO CORTES PATIENT MEDICARE (WNR) MEDICARE (M) PART B Oct 24, 2012 PART B [id number] ELIO CORTES PATIENT MEDICARE (WNR) MEDICARE (M) PART B Oct 24, 2012 PART B [id number] ELIO CORTES PATIENT MEDICARE (WNR) MEDICARE (M) PART A Oct 24, 2012 PART A [id number] [phone] ELIO CORTES PATIENT MEDICARE (WNR) MEDICARE (M) PART A Oct 24, 2012 PART A [id number] [phone] ELIO CORTES PATIENT MEDICARE (WNR) MEDICARE (M) PART B Oct 24, 2012 PART B [id number] [phone] ELIO CORTES PATIENT Selected Encounter This section includes the information on record at [place] for the Encounter. Date/Time Encounter Type Encounter Description Reason Pro vider Source Jun 08, 2024 03:02 PM Outpatient Encounter ADMIN PAT ACTIVTIES (MASNONCT) IHE Encounter Template Text not used by [place] Plan of Treatment: Future Appointments (+ 6 months) and Future Tests (+/- 45 days) The Plan of Treatment section includes future care activities for the patient from all [place] treatmentfacilities. This section includes future appointments and future orders which are active, pending or scheduled. Future Appointments This section includes appointments that were scheduled to occur 6 months from the date of the Encounter, up to a maximum of 20 appointments. The data comes from all [place] treatment facilities. Appointment Date/Time Appointment Type Appointme nt Facility Name Jun 09, 2024 11:15 AM [facility]BULATORY - [facility]ICINE [facility] Oct 10, 2024 11:00 AM [facility] Oct 23, [facility]24 01:00 PM AMBULATORY - [...] of theEncounter. The data comes from all [place] treatment facilities. Test Date/Time Test Type Test Details Facility Name Jun 09, 2024 12:00 AM Laboratory - Chemi stry Order BASIC METABOLIC PANEL (non-fasting) BLOOD (SST-SERUM) [facility] Jun 09, 2024 12:00 AM Laboratory - Chemi stry Order HEMOGLOBIN A1C PANEL BLOOD (LAV-BLOOD) [facility] Jun 09, 2024 12:00 AM Laboratory - Chemi stry Order MICROALBUMIN CREATININE RATIO PANEL URINE (RANDOM) [facility] Jun 09, 2024 12:00 AM Laboratory - Chemi stry Order CBC BLOOD (LAV-BLOOD) [facility] Jun 09, 2024 12:00 AM Laboratory - Chemi stry Order LIVER FUNCTION BLOOD (SST-SERUM) [facility] Jun 09, 2024 12:00 AM Laboratory - Chemi stry Order LIPID PANEL, NON FASTING BLOOD (SST-SERUM) [facility] Lab Results: +/- 30 days of the encounter This section includes the Chemistry and Hematology Lab Results on record with [place] for the patient. Radiology Reports and Pathology Reports are provided separately, in subsequent sections. Lab Results This section contains the Chemistry/Hematology Results that were resulted 30 days before or 30 daysafter the date of the Encounter. Date/Time Source Result Type Result - Unit Interpretation Reference Range Comment Jun 09, 2024 11:41 AM [place] COVID-19 FLU/RSV DIAGNOSTIC PANEL Speci men Type: NASOPHARYNX Comment: This test is authorized for emergency use only. False negative results may occur if virus is present at levels below the analytical limit of detection.Nega tive results do not preclude SARS-CoV-2, influenza or RSV infection and should not be used as the sole basis for treatment or other patient management decisions.[facility] guillermo FLUVID: HCPs: https://www.KnowledgeMill a.gov/media 429/download. Patients: https://www.[employer]ledge[employer] a.gov/ 035/download Ordering Provider: MALACHI MORALES Report Released Date/Time: Jun 09, 2024 11:33 AM Reporting [facility]: [facility] [address] [id number] Performing Lab: [facility] [address] [id number] COVID-19 PCR (FLUVID) NEGATIVE NEGATIVE FLU A PCR (FLUVID) POSITIVE FLU B PCR (FLUVID) NEGATIVE RSV PCR (FLUVID) NEGATIVE Advance Directives: All historical and current Section Date Range: From patient's date of to the date document was created. This section includes ALL of a patient's completed or amended [place] Advance and Rescinded Directives. The entries below indicate that a directive exists for the patient, but an actual copy is not included with this document. The data comes from all [place] facilities. Date Advance Directives Provider Source Apr 24, 2020 ADVANCE DIRECTIVE JESSICA DENTCesar RENTERIA Encounter Notes: All associated encounter notes This section contains the clinical notes associated to the Encounter. Date/Time Encounter Note(s) Provider Source Jun 08, 2024 03:02 PM PHARMACY NOTE: LOCAL TITLE: PHARMACY CUSTOMER CARE MEDICATION RENEWAL STANDARD TITLE: PHARMACY NOTE DATE OF NOTE: JUN 08, 2024@15:02 ENTRY DATE: JUN 08, 2024@15:02:24 AUTHOR: PAGE WINSTON EXP COSIGNER: URGENCY: STATUS: COMPLETED Date: May Division: [place] Pt referred by Pharmacy Call Center for medication renewal: Non-controlled/maintenanc e medication Medications requested: [id number] ATORVASTATIN CALCIUM 80MG TAB Defer to primary care provider To be mailed . Please review and renew if appropriate. *This note was generated by [facility] Pharmacy Customer Care. If you have any questions or need assistance, do not contact this author. Please refer all questions to your local, on-site pharmacy departments. /harpal/ PAGE WINSTON CPhT LIVESTOCK BRANDS INSPECTOR, [place]/PHARMACY CUSTOMER CARE Signed: 06/08/2024 15:02 Receipt Acknowledged By: 06/08/2024 16:30 /harpal/ BAMBI BARRERA REGISTERED NURSE 06/09/2024 11:26 /harpal/ MALACHI MORALES NP NURSE PRACTITIONER [facility]INSTON [facility]
--- OUTSIDE RECORDS SUMMARY | 2024-06-22 13:51 | XMS_ITS | Encounter Summary ---
Author Name [facility] [place] Organization [place] Address [address] [place] [address] Care Team Providers Care Thermal Technician Name Role Phone STEPHON UGARTE Primary Care [...] SUPPLEMEN ANTWAN MEDEX 2 Apr 26, 2017 [id number] MARCIAL VILLAELIO PATIENT ANTHEM BCBS OF CT MEDICARE SUPPLEMEN ANTWAN COH RETIR EMENT Apr 26, 2017 [id number] [phone] MARCIAL VILLAELIO PATIENT [place] SUPPLEMEN ANTWAN MEDEX 2 Apr 26, 2017 [id number] MARCIAL ELIO VILLA [place] SUPPLEMEN ANTWAN MEDEX 2 Apr 26, 2017 [id number] MARCIAL VILLAELIO PATIENT [place] SUPPLEMEN ANTWAN MEDEX 2 Apr 26, 2017 [id number] [phone] ELIO CORTES PATIENT MEDICARE (WNR) MEDICARE (M) PART B Oct 24, 2012 PART B [id number] [phone] ELIO CORTES PATIENT MEDICARE (WNR) MEDICARE (M) PART A Oct 24, 2012 PART A [id number] [phone] ELIO CORTES PATIENT MEDICARE (WNR) MEDICARE (M) PART A Oct 24, 2012 PART A [id number] ELIO CORTES PATIENT MEDICARE (WNR) MEDICARE (M) PART B Oct 24, 2012 PART B [id number] ELIO COTRES PATIENT MEDICARE (WNR) MEDICARE (M) PART A Oct 24, 2012 PART A [id number] ELIO CORTES PATIENT MEDICARE (WNR) MEDICARE (M) PART B Oct 24, 2012 PART B [id number] ELIO CORTES PATIENT Selected Encounter This section includes the information on record at [place] for the Encounter. Date/Time Encounter Type Encounter Description Reason Provider Source Aug 24, 2023 11:30 AM OFFICE O/P EST LOW 20 MIN PODIATRY ICD-10-CM R73.03 Prediabetes MEJIA MARCH Julee Encounter Template Text not used by [place] Assessments - Encounter Diagnoses This section includes the primary and secondary diagnoses documented for the Encounter. Date/Time Primary/Secondary Diagnosis Diagnosis Name Provider Source September 23, 2023 01:38 PM PRIMARY Prediabetes MEJIA MARCH September 23, 2023 01:38 PM SECONDARY Corns and callosities MEJIA MARCH September 23, 2023 01:38 PM SECONDARY Ingrowing nail MEJIA MARCH September 23, 2023 01:38 PM SECONDARY Peripheral vascular disease, unspecified MEJIA MARCH Plan of Treatment: Future Appointments (+ 6 [...] Appointment Type Appointme nt Facility Name Oct 25, 2023 08:30 AM [facility] [place] [facility] Nov 23, 2023 01:00 PM AM[facility]ATORY [facility] [place] [facility] Dec 06, 2023 08:30 AM AMBULATORY - [facility]CHIATRY [facility] [place] [facility] Dec 24, 2023 02:00 PM AMBULATORY - MEDICINE [facility] [place] [facility] Dec 28, 2023 02:45 PM AMBULATORY - MEDICINE [facility] Dec 31, 2023 02:00 PM AMBULATORY - MEDICINE [facility] [place] [facility] Jan 06, 2024 03:00 PM AMBULATORY [facility]ICINE [facility] [place] [facility] Jan 14, 2024 02:30 PM AMBULATORY - MEDICINE [facility] [place] [facility] Jan 18, 2024 11:30 AM AMBULATORY - MEDICINE [facility] Social History: Smoking Status (Most current) and Tobacco Use (All prior to encounter date) This section includes the most current, and the historical, smoking and tobacco- related health factors from the [place] facility where the Encounter took place. Current Smoking Status This section includes the most current smoking, or tobacco-related health factor, from the [place] facility where the Encounter took place. Date/Time Current Smoking Status Comment Ale de [place]ón Mar 23, 2022 01:30 PM VA-TOBACCO NEVER USED [facility] Tobacco Use History This section includes a history of the smoking, or tobacco-related health factors, that were collected on or before the date of the Encounter. The data comes from the [place] facility where the Encounter took place. Date/Time Smoking Status/Tobacco Use Comment F acility September 12, 2020 10:30 AM VA-TOBACCO NEVER USED [facility] May 31, 2019 02:48 PM VA-TOBACCO FORMER USER [facility] May 31, 2019 02:48 PM VA-TOBACCO QUIT 5 TO < 15 YRS [facility] Advance Directives: All historical and current Section [...] the Encounter. Date/Time Encounter Note(s) Provider Source Aug 24, 2023 07:43 AM PODIATRY NOTE: LOCAL TITLE: PODIATRY NOTE STANDARD TITLE: PODIATRY NOTE DATE OF NOTE: AUG 24, 2023@07:43 ENTRY DATE: AUG 24, 2023@07:43:23 AUTHOR: MEJIA MARCH COSIGNER: URGENCY: STATUS: COMPLETED NOTE: HAS RECEIVED BOTH COVID VACCINE DOSES AT [facility] LAST SEEN FOR TREATMENT: 06/07/2023 S: Pt. is a 77 yo alert WDWN CAUC MALE who presents [...] present physical-medical status. Protective sensation utilizing a [place] lOg monofilament is 02/10 LEFT & 5/10 [...] NAIL & CALLUS CARE (08/23 @ 11:30) ([facility] MEANS-DISCUSSED THE DISRUPTION ON THE [facility] AND ARE AT A LOSS TO WHY) [...] this VA (local) and dispensed from another [place] or DoD facility (remote) as well as [...] list may not be complete. Please check Kitchenbug. Allergies/ADRs (Tool #5) FACILITY ALLERGY/ADR -------- No Remote Allergy/ADR Data available for this patient [facility] [place] [facility] Med Recon NoGlossary (Tool #1) INCLUDED [...] display of VA prescriptions dispensed from another [place] or [facility] facility (remote) is limited to active outpatient prescription entries matched to National Drug File at the originating site and may not include some items such as investigational drugs, compounds, etc. NOT INCLUDED IN THIS LIST: Medications self-entered by the patient into personal health records (i.e. Mr. Youth) are NOT included in this list. Non-VA medications documented outside this [place], remote inpatient orders (regardless of status) and remote clinic medications are NOT included in this list. The patient and provider must always discuss medications the patient is taking, regardless of where the medication was dispensed or obtained. OUTPT AMLODIPINE BESYLATE 5MG TAB (Status = Active) TAKE ONE TABLET BY MOUTH ONCE DAILY FOR BLOOD PRESSURE/HEART, DO NOT TAKE WITH GRAPEFRUIT JUICE Rx# [id number] Last Released: 08/04/23 Qty/Days Supply: Rx Expiration Date: 02/12/24 Refills Remainin OUTPT ATORVASTATIN CALCIUM 80MG TAB (Status = Active) TAKE ONE-HALF TABLET BY MOUTH ONCE DAILY FOR CHOLESTEROL Rx# [id number] Last Released: 04/29/23 Qty/Days Supply: 45 Rx Expiration Date: 04/19/24 Refills Remainin OUTPT BUSPIRONE HCL 10MG TAB (Status = Active) TAKE ONE TABLET BY MOUTH THREE TIMES A DAY FOR ANXIETY Rx# [id number] Last Released: 11/12/22 Qty/Days Supply: 270/90 Rx Expiration Date: 11/12/23 Refills Remainin Indication: FOR ANXIETY OUTPT CARBOXYMETHYLCELLULOSE NA 0.5% OPH SOLN (Status = Active) INSTILL 1 DROP INTO EACH EYE FOUR TIMES DAILY NEEDED FOR DRY EYE Rx# [id number] Last Released: 06/10/23 Qty/Days Supply: 45 Rx Expiration Date: 06/03/24 Refills Remainin Indication: FOR DRY EYE Non-VA CLONAZEPAM 0.5MG TAB TAKE ONE TABLET BY MOUTH TWICE DAILY NEEDED OUTPT ESCITALOPRAM OXALATE 10MG TAB (Status = Active) TAKE ONE-HALF TABLET BY MOUTH TWICE DAILY FOR MAJOR DEPRESSIVE DISORDER FOR MOOD/DEPRESSION Rx# [id number] Last Released: 11/27/22 Qty/Days Supply: Rx Expiration Date: 11/27/23 Refills Remainin Indication: FOR MAJOR DEPRESSIVE DISORDER OUTPT FINASTERIDE 5MG TAB (Status = Active) TAKE ONE TABLET BY MOUTH ONCE DAILY NEEDED FOR PROSTATE Rx# [id number] Last Released: 06/22/23 Qty/Days Supply: Rx Expiration Date: 04/12/24 Refills Remainin Non-VA FISH OIL 500MG DHA/EPA CAP,ORAL TAKE BY MOUTH ONCE DAILY OUTPT FLUOROURACIL 0.5% TOP CREAM (Status = ) APPLY A SMALL AMOUNT TOPICALLY ONCE DAILY FOR ROUGHENED RED PATCHES OF SKIN FOR UP TP 2 WEEKS TOLERATED Rx# [id number] Last Released: QtyDays Supply: Rx Expiration Date: 07/18/23 Refills Remainin Indication: FOR ROUGHENED RED PATCHES OF SKIN OUTPT FLUTICASONE PROP 50MCG 120D NASAL INHL (Status = Active) INSTILL 2 SPRAYS INTO EACH NOSTRIL ONCE DAILY FOR NASAL IRRITATION/INFLAMMATION MAY DECREASE TO 1 SPRAY/NOSTRIL WHEN CONTROLLED Rx# [id number] Last Released: 06/22/23 Qty/Days Supply: Rx Expiration Date: 06/17/24 Refills Remainin Indication: FOR NASAL IRRITATION/INFLAMMATION OUTPT GABAPENTIN 600MG TAB (Status = Active) TAKE ONE-HALF TABLET BY MOUTH TWICE DAILY FOR NERVE PAIN Rx# [id number] Last Released: 05/13/23 Qty/Days Supply: Rx Expiration Date: 05/11/24 Refills Remainin Indication: FOR NERVE PAIN Non-VA GLUCOSAMINE CAP/TAB TAKE 1000MG BY MOUTH ONCE DAILY Non-VA LISINOPRIL 10MG TAB TAKE ONE TABLET BY MOUTH ONCE DAILY Non-VA LYSINE CAP/TAB TAKE ONE TABLET BY MOUTH ONCE DAILY Non-VA NAPROXEN 500MG TAB TAKE ONE TABLET BY MOUTH ONCE DAILY OUTPT OMEPRAZOLE 20MG EC CAP (Status = Active) TAKE ONE CAPSULE BY MOUTH EVERY MORNING 30 MINUTES BEFORE BREAKFAST Rx# [id number] Last Released: 05/11/23 Qty/Days Supply: 90 Rx Expiration Date: 12/18/23 Refills Remainin Indication: FOR GASTROESOPHAGEAL REFLUX DISEASE OUTPT PEG 400 0.4%/PROP GLYCOL 0.3% OPH SOLN (Status = ) INSTILL 1 DROP INTO EACH EYE FOUR TIMES DAILY NEEDED DRY EYES Rx# [id number] Last Released: 06/09/22 Qty/Days Supply: 60 Rx Expiration Date: 06/02/23 Refills Remainin Indication: DRY EYES OUTPT PHENTERMINE 7.5/TOPIRAMATE 46MG SA CAP (Status = ) TAKE 1 CAPSULE BY MOUTH EVERY MORNING FOR WEIGHT LOSS MANAGEMENT WITH OR WITHOUT FOOD Rx# [id number] Last Released: 06/15/23 Qty/Days Supply: Rx Expiration Date: 08/14/23 Refills Remainin Indication: FOR WEIGHT LOSS MANAGEMENT OUTPT SUNSCREEN 30-50/AVOBENZONE/PABA-F LOTION (Status = Active) APPLY A LIBERAL AMOUNT TOPICALLY NEEDED TO PREVENT SUNBURN Rx# [id number] Last Released: 10/29/22 Qty/Days Supply: 480/90 Rx Expiration Date: 10/24/23 Refills Remainin Indication: TO PREVENT SUNBURN OUTPT SUNSCREEN 30-50/PHY BLOCK/PABA-F FACE CR (Status = Active) APPLY A LIBERAL AMOUNT TOPICALLY NEEDED TO PREVENT SUNBURN Rx# [id number] Last Released: 10/28/22 Qty/Days Supply: 360/90 Rx Expiration Date: 10/24/23 Refills Remainin Indication: TO PREVENT SUNBURN SUPPLIES /harpal/ MEJIA MARCH DPM APARTMENT HOUSE MANAGER Signed: 08/24/2023 12:01 MEJIA MARCH
--- OUTSIDE RECORDS SUMMARY | 2024-06-22 13:51 | XMS_ITS | Encounter Summary ---
Author Name [facility] [place] Organization [facility] [place] Address [address] [place] [address] Care Team Providers Care Planning Technician Name Role Phone STEPHON UGARTE Primary [...] Member ID Insurance Provider's Telephone Number Policy Hrady's Name Patient's Relationship to Policy Hardy AN[place] MEDICARE SUPPLEMEN ANTWAN MEDEX 2 Apr 26, 2017 [id number] [phone] ELIO CORTES PATIENT ANTHEM BCBS OF [place] MEDICARE SUPPLEMEN ANTWAN COH RETIR EMENT Apr 26, 2017 [id number] ELIO CORTES [place]IENT [place] SUPPLEMEN ANTWAN MEDEX 2 Apr 26, 2017 [id number] [phone] ELIO CORTES [place] SUPPLEMEN ANTWAN MEDEX 2 Apr 26, 2017 [id number] ELIO CORTES PATIENT [place] SUPPLEMEN ANTWAN MEDEX 2 Apr 26, 2017 [id number] ELIO CORTES PATIENT MEDICARE (WNR) MEDICARE (M) PART A Oct 24, 2012 PART A [id number] ELIO CORTES PATIENT MEDICARE (WNR) MEDICARE (M) PART B Oct 24, 2012 PART B [id number] ELIO CORTES PATIENT MEDICARE (WNR) MEDICARE (M) PART A Oct 24, 2012 PART A [id number] [phone] ELIO CORTES PATIENT MEDICARE (WNR) MEDICARE (M) PART B Oct 24, 2012 PART B [id number] [phone] [id number] ELIO CORTES PATIENT MEDICARE (WNR) MEDICARE (M) PART A Oct 24, 2012 PART A [id number] [phone] ELIO CORTES PATIENT MEDICARE (WNR) MEDICARE (M) PART B Oct 24, 2012 PART B [id number] ELIO CORTES PATIENT Selected Encounter This section includes the information on record at [place] for the Encounter. Date/Time Encounter Type Encounter Description Reason Pro vider Source Dec 14, 2023 06:41 PM Outpatient Encounter ADMIN PAT ACTIVTIES (MASNONCT) [...] - MEDICINE [place] [facility] [place] [facility] Dec 28, 2023 02:45 PM AMBULATORY - MEDICINE [facility] Dec 31, 2023 02:00 PM AMBULATORY - MEDICINE [facility] [place] [facility] Jan 06, 2024 03:00 PM AMBULATORY - MEDICINE [place] [facility] [place] [facility] Jan 14, 2024 02:30 PM AMBULATORY - MEDICINE [place] [facility] [place] [facility] Jan 18, 2024 11:30 AM AMBULATORY - [place]ICINE [place] [place] Feb 24, 2024 02:30 PM AMBULATORY - MEDICINE [place] [facility] [place] [facility] Apr 11, 2024 02:00 PM AMBULATORY - MEDICINE [place] [facility] [place] [facility] Jun 06, 2024 11:00 AM [facility]ATORY - [facility]IC[place] [place] Jun 08, 2024 03:30 PM AMBULATORY - MEDICINE [place] [facility] [place] [facility] Jun 09, 2024 11:15 AM [facility]ORY - [facility]IC[facility] Active, Pending, and Scheduled Orders This [...] PM Consult Order ACUPUNCTUR E/NHM OUTPT Cons Tar Pot Worker's Choice [place] [facility] Advance Directives: All historical and current Section Date Range: From patient's date of to the date document was created. This section includes ALL of a patient's completed or amended [place] Advance and Rescinded Directives. The entries below [...] Encounter. Date/Time Encounter Note(s) Provider Source Dec 14, 2023 06:41 PM PHARMACY NOTE: LOCAL TITLE: V1 PHARMACY CUSTOMER CARE MEDICATION RENEWAL STANDARD TITLE: PHARMACY NOTE DATE OF NOTE: DEC 14, 2023@18:41 ENTRY DATE: DEC 14, 2023@18:41:07 AUTHOR: MILO ORTIZ COSIGNER: URGENCY: STATUS: COMPLETED Date: Nov Division: [place] Pt referred by Pharmacy Call Center for medication renewal: Non-controlled/maintena nce medication Medications requested: [id number] ESCITALOPRAM OXALATE 10MG TAB Defer to primary care provider To be mailed . Please review and renew if appropriate. *This note was generated by [facility] Pharmacy Customer Care. If you have any questions or need assistance, do not contact this author. Please refer all questions to your local, on-site pharmacy departments. /harpal/ MILO CH CPhT [place], [place]/Pharmacy Customer Care Signed: 12/14/2023 18:41 Receipt Acknowledged By: 04/17/2024 12:28 /es/ STEPHON UGARTE MD PHYSICIAN 12/15/2023 09:12 /harpal/ VALENTINA CODYN,RN-BC REGISTERED NURSE (RN) MILO ORTIZ CNTL [facility]
--- OUTSIDE RECORDS SUMMARY | 2024-06-22 13:51 | XMS_ITS | Encounter Summary ---
Author Name [facility] of Vetera [facility] ([place]) Organization [facility] [place] [facility] [place] Address [address] [place] [address] Care Team Providers Care Pantograph I Engraver Name Role Phone STEPHON UGARTE Primary Care [...] SUPPLEMEN ANTWAN MEDEX 2 Apr 26, 2017 [id number] MARCIAL VILLAELIO PATIENT ANTHEM BCBS OF [place] MEDICARE SUPPLEMEN ANTWAN COH RETIR EMENT Apr 26, 2017 [id number] [phone] MARCIAL VILLAEL[place]TWAN MEDEX 2 Apr 26, 2017 [id number] ELIO CORTES [place] MEDEX 2 Apr 26, 2017 [id number] [phone] ELIO [place]ORT[place] ANTWAN MEDEX 2 Apr 26, 2017 [id number] ELIO CORTES PATIENT MEDICARE (WNR) MEDICARE (M) PART A Oct 24, 2012 PART A [id number] ELIO CORTES PATIENT MEDICARE (WNR) MEDICARE (M) PART B Oct 24, 2012 PART B [id number] ELIO CORTES PATIENT MEDICARE (WNR) MEDICARE (M) PART B Oct 24, 2012 PART B [id number] [phone] ELIO CORTES PATIENT MEDICARE (WNR) MEDICARE (M) PART A Oct 24, 2012 PART A [id number] ELIO CORTES PATIENT MEDICARE (WNR) MEDICARE (M) PART A Oct 24, 2012 PART A [id number] ELIO CORTES PATIENT MEDICARE (WNR) MEDICARE (M) PART B Oct 24, 2012 PART B [id number] ELIO CORTES PATIENT Selected Encounter This section includes the information on record at ID for the Encounter. Date/Time Encounter Type Encounter Description Reason Provider Source Jun 06, 2024 11:00 AM OFFICE O/P EST LOW 20 MIN PODIATRY ICD-10-CM L60.0 Ingrowing nail MEJIA MARCH Julee Encounter Template Text not used by ID Assessments - Encounter Diagnoses This section includes the primary and secondary diagnoses documented for the Encounter. Date/Time Primary/Secondary Diagnosis Diagnosis Name Provider Source Jun 06, 2024 11:37 AM PRIMARY Ingrowing nail MEJIA MARCH Jun 06, 2024 11:37 AM SECONDARY Corns and callosities MEJIA MARCH Jun 06, 2024 11:37 AM SECONDARY Idiopathic progressive neuropathy MEJIA MARCH Jun 06, 2024 11:37 AM SECONDARY Peripheral vascular disease, unspecified MEJIA MARCH [...] 20 appointments. The data comes from all ID treatment [facility]. Appointment Date/Time Appointment Type Appointme nt Facility Name Jun 08, 2024 03:30 PM AMBULATORY - MEDICINE [place] C [facility] [facility] Jun 09, 2024 11:15 AM AMBULATORY - MEDICINE [facility] Oct 10, 2024 11:00 AM AMBULATORY - MEDICINE [facility] Oct 23, 2024 01:00 PM AMBULATORY - MEDICINE [facility] Active, Pending, and Scheduled Orders This section includes a listing of several types of active, pending, and scheduled orders, including clinic medications orders, diagnostic test orders, procedure orders and consult orders; where the start date of the order is 45 days before the date of the Encounter or 45 days after the date of theEncounter. The data comes from all [facility]. Test Date/Time Test Type Test Details Facility Name Jun 09, 2024 12:00 AM Laboratory - Chemi stry Order BASIC METABOLIC PANEL (non-fasting) BLOOD (SST-SERUM) [facility] Jun 09, 2024 12:00 AM Laboratory - Chemi stry Order HEMOGLOBIN A1C PANEL BLOOD (LAV-BLOOD) [facility] Jun 09, 2024 12:00 AM Laboratory - Chemi stry Order MICROALBUMIN CREATININE RATIO PANEL URINE (RANDOM) [facility] Jun 09, 2024 12:00 AM Laboratory - Chemi stry Order CBC BLOOD (LAV-BLOOD) [facility] Jun 09, 2024 12:00 AM Laboratory - Chemi stry Order LIVER FUNCTION BLOOD (SST-SERUM) [facility] Jun 09, 2024 12:00 AM Laboratory - Chemi stry Order LIPID PANEL, NON FASTING BLOOD (SST-SERUM) [facility] Lab Results: +/- 30 days of the encounter This section includes the Chemistry and Hematology Lab Results on record with ID for the patient. Radiology Reports and Pathology Reports are provided separately, in subsequent sections. Lab Results This section contains the Chemistry/Hematology Results that were resulted 30 days before or 30 daysafter the date of the Encounter. Date/Time Source Result Type Result - Unit Interpretation Reference Range Comment Jun 09, 2024 11:41 AM [facility] COVID-19 FLU/RSV DIAGNOSTIC PANEL Speci men Type: NASOPHARYNX Comment: This test is authorized for emergency use only. False negative results may occur if virus is present at levels below the analytical limit of detection.Nega tive results do not preclude SARS-CoV-2, influenza or RSV infection and should not be used as the sole basis for treatment or other patient management decisions.[facility] guillermo FLUVID: HCPs: https://www.[employer] a.gov/media/2434/download. Patients: https://www.[employer] a.gov/media/2435/download Ordering Provider: MALACHI MORALES Report Released Date/Time: Jun 09, 2024 11:33 AM Reporting Lab: [address] [address] Performing Lab: [address] [address] COVID-19 PCR (FLUVID) NEGATIVE NEGATIVE FLU A PCR (FLUVID) POSITIVE FLU B PCR (FLUVID) NEGATIVE RSV PCR (FLUVID) NEGATIVE Social History: Smoking Status (Most current) and Tobacco Use (All prior to encounter date) This section includes the most current, and the historical, smoking and tobacco- related health factors from the ID facility where the Encounter took place. Current Smoking Status This section includes the most current smoking, or tobacco-related health factor, from the ID facility where the Encounter took place. Date/Time Current Smoking Status Comment Ale itraúl Oct 25, 2023 08:30 AM VA-TOBACCO NEVER USED [facility] Tobacco Use History This section includes a history of the smoking, or tobacco-related health factors, that were collected on or before the date of the Encounter. The data comes from the ID facility where the Encounter took place. Date/Time Smoking Status/Tobacco Use Comment F acility Mar 23, 2022 01:30 PM VA-TOBACCO NEVER USED [facility] September 12, 2020 10:30 AM VA-TOBACCO NEVER USED [facility] May 31, 2019 02:48 PM VA-TOBACCO FORMER USER [facility] May 31, 2019 02:48 PM ID-TOBACCO QUIT 5 TO < 15 YRS [facility] Advance Directives: All historical and current Section Date Range: From patient's date of to the date document was created. This section includes ALL of a patient's completed or amended [place] Advance and Rescinded Directives. The entries below indicate that a directive exists for the patient, but an actual copy is not included with this document. The data comes from all ID facilities. Date Advance Directives Provider Source Apr 24, 2020 ADVANCE DIRECTIVE DWAINE DENT LD Encounter Notes: All associated encounter notes This section contains the clinical notes associated to the Encounter. Date/Time Encounter Note(s) Provider Source Jun 06, 2024 07:45 AM PODIATRY NOTE: LOCAL TITLE: PODIATRY NOTE STANDARD TITLE: PODIATRY NOTE DATE OF NOTE: JUN 06, 2024@07:45 ENTRY DATE: JUN 06, 2024@07:45:32 AUTHOR: MEJIA MARCH EXP COSIGNER: URGENCY: STATUS: COMPLETED NOTE: HAS RECEIVED BOTH COVID VACCINE DOSES AT [facility] LAST SEEN FOR TREATMENT: 01/18/2024 S: Pt. is a 78 yo alert [...] present physical-medical status. Protective sensation utilizing a [place] lOg monofilament is 02/10 LEFT & 5/10 [...] of imminent bleeding. HYPERKERATOSIS NOTED TODAY -medial DIPJ 5th left digit. TUBEFOAM DISPENSED FOR RT HALLUX . 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 Outpatient: Has the patient been taking medications as documented in the EMLR? YES: The patient has been taking medications as documented in the EMLR. Essential Medication List for Review used to complete this medication reconciliation. INCLUDED IN THIS LIST: Alphabetical list of active outpatient prescriptions dispensed from this ID (local) and dispensed from another ID or DoD facility (remote) as well as [...] list may not be complete. Please check [facility]. Allergies/ADRs (Tool #5) FACILITY ALLERGY/ADR -------- No Remote Allergy/ADR Data available for this patient [facility] Med Recon NoGlossary (Tool #1) INCLUDED IN THIS LIST: Alphabetical list of active outpatient prescriptions dispensed from this ID (local) and dispensed from another ID or DoD facility (remote) as well as inpatient orders (local pending and active), local clinic medications, locally documented non-VA medications, and local prescriptions that have or been discontinued in the past 90 days. Non-VA Meds Last Documented On: Nov 11, 2022 NOTE The display of VA prescriptions dispensed from another ID or [facility] facility (remote) is limited to active outpatient prescription entries matched to National Drug File at the originating site and may not include some items such as investigational drugs, compounds, etc. NOT INCLUDED IN THIS LIST: Medications self-entered by the patient into personal health records (i.e. [employer]) are NOT included in this list. Non-VA medications documented outside this ID, remote inpatient orders (regardless of status) and remote clinic medications are NOT included in this list. The patient and provider must always discuss medications the patient is taking, regardless of where the medication was dispensed or obtained. OUTPT ALBUTEROL 90MCG (CFC-F) 200D ORAL INHL (Status = Active) INHALE 2 PUFFS BY MOUTH FOUR TIMES DAILY NEEDED FOR SHORTNESS OF BREATH Rx# [id number] Last Released: 03/21/24 Qty/Days Supply: Rx Expiration Date: 03/22/25 Refills Remainin Indication: FOR SHORTNESS OF BREATH OUTPT AMLODIPINE BESYLATE 5MG TAB (Status = Active) TAKE ONE TABLET BY MOUTH ONCE DAILY FOR BLOOD PRESSURE/HEART, DO NOT TAKE WITH GRAPEFRUIT JUICE Rx# [id number] Last Released: 04/27/24 Qty/Days Supply: Rx Expiration Date: 02/14/25 Refills Remainin OUTPT ATORVASTATIN CALCIUM 80MG TAB (Status = ) TAKE ONE-HALF TABLET BY MOUTH ONCE DAILY FOR CHOLESTEROL Rx# [id number] Last Released: 02/18/24 Qty/Days Supply: Rx Expiration Date: 04/19/24 Refills Remainin OUTPT CARBOXYMETHYLCELLULOSE NA 0.5% OPH SOLN (Status = ) INSTILL 1 DROP INTO EACH EYE FOUR TIMES DAILY NEEDED FOR DRY EYE Rx# [id number] Last Released: 02/18/24 Qty/Days Supply: Rx Expiration Date: 06/03/24 Refills Remainin Indication: FOR DRY EYE Non-VA CLONAZEPAM 0.5MG TAB TAKE ONE TABLET BY MOUTH TWICE DAILY NEEDED OUTPT ESCITALOPRAM OXALATE 10MG TAB (Status = Active) TAKE ONE-HALF TABLET BY MOUTH TWICE DAILY FOR MAJOR DEPRESSIVE DISORDER FOR MOOD/DEPRESSION Rx# [id number] Last Released: 03/01/24 Qty/Days Supply: Rx Expiration Date: 12/23/24 Refills Remainin Indication: FOR MAJOR DEPRESSIVE DISORDER OUTPT FINASTERIDE 5MG TAB (Status = ) TAKE ONE TABLET BY MOUTH ONCE DAILY NEEDED FOR PROSTATE Rx# [id number] Last Released: 02/12/24 Qty/Days Supply: Rx Expiration Date: 04/12/24 Refills Remainin Non-VA FISH OIL 500MG DHA/EPA CAP,ORAL TAKE BY MOUTH ONCE DAILY OUTPT FLUTICASONE PROP 50MCG 120D NASAL INHL (Status = Active) INSTILL 2 SPRAYS INTO EACH NOSTRIL ONCE DAILY FOR NASAL IRRITATION/INFLAMMATION MAY DECREASE TO 1 SPRAY/NOSTRIL WHEN CONTROLLED Rx# [id number] Last Released: 02/18/24 Qty/Days Supply: Rx Expiration Date: 06/17/24 Refills Remainin Indication: FOR NASAL IRRITATION/INFLAMMATION OUTPT GABAPENTIN 600MG TAB (Status = ) TAKE ONE-HALF TABLET BY MOUTH TWICE DAILY FOR NERVE PAIN Rx# [id number] Last Released: 02/18/24 Qty/Days Supply: Rx Expiration Date: 05/11/24 Refills Remainin Indication: FOR NERVE PAIN Non-VA GLUCOSAMINE CAP/TAB TAKE 1000MG BY MOUTH ONCE DAILY OUTPT LISINOPRIL 10MG TAB (Status = Active) TAKE ONE TABLET BY MOUTH ONCE DAILY TO CONTROL BLOOD PRESSURE Rx# [id number] Last Released: 04/27/24 Qty/Days Supply: Rx Expiration Date: 10/25/24 Refills Remainin Indication: FOR HIGH BLOOD PRESSURE OUTPT LOSARTAN 25MG TAB (Status = Discontinued) TAKE ONE TABLET BY MOUTH ONCE DAILY FOR BLOOD PRESSURE/HEART STOP LISINOPRIL Rx# [id number] Last Released: 03/17/24 Qty/Days Supply: Rx Expiration Date: 06/14/24 Refills Remainin Indication: FOR HIGH BLOOD PRESSURE Non-VA LYSINE CAP/TAB TAKE ONE TABLET BY MOUTH ONCE DAILY OUTPT METFORMIN HCL 500MG 24HR SA TAB (Status = ) TAKE ONE TABLET BY MOUTH ONCE DAILY FOR 7 DAYS, THEN TAKE TWO TABLETS ONCE DAILY Rx# [id number] Last Released: 02/29/24 Qty/Days Supply: 173/90 Rx Expiration Date: 05/28/24 Refills Remainin Indication: DIABETES Non-VA NAPROXEN 500MG TAB TAKE ONE TABLET BY MOUTH ONCE DAILY OUTPT OMEPRAZOLE 20MG EC CAP (Status = Discontinued) TAKE ONE CAPSULE BY MOUTH TWICE DAILY FOR GASTROESOPHAGEAL REFLUX DISEASE Rx# [id number] Last Released: 01/26/24 Qty/Days Supply: 18090 Rx Expiration Date: 09/23/24 Refills Remainin Indication: FOR GASTROESOPHAGEAL REFLUX DISEASE OUTPT OMEPRAZOLE 20MG EC CAP (Status = Active) TAKE ONE CAPSULE BY MOUTH TWICE DAILY FOR GASTROESOPHAGEAL REFLUX DISEASE Rx# [id number] Last Released: 04/17/24 Qty/Days Supply: 180 Rx Expiration Date: 04/15/25 Refills Remainin Indication: FOR GASTROESOPHAGEAL REFLUX DISEASE SUPPLIES OUTPT ACCU-CHEK GUIDE (GLUCOSE) TEST STRIP (Status = Active) USE 1 STRIP TO TEST BLOOD SUGARS TWO TIMES A WEEK Rx# [id number] Last Released: 03/01/24 Qty/Days Supply: 50/180 Rx Expiration Date: 02/28/25 Refills Remainin OUTPT ACCU-CHEK GUIDE ME (GLUCOSE) METER (Status = ) USE METER TO TEST BLOOD SUGARS ONCE DAILY Rx# [id number] Last Released: 02/29/24 Qty/Days Supply: Rx Expiration Date: 05/28/24 Refills Remainin /harpal/ MEJIA MARCH DPM JUNIOR MEDIA BUYER Signed: 06/06/2024 11:38 MEJIA MARCH
--- OUTSIDE RECORDS SUMMARY | 2024-06-22 13:51 | XMS_ITS ---
Author Organization [facility] Address [address] [place] [address] Care Team Providers Care National Service Officer Name Role Phone Joanne Bejarano MD Primary Care Provider Abdoulaye Cast [phone] ALLERGIES Allergen (clinical drug ingredient) Drug/Non Drug Allergy documented on EMR Reaction Allergy Type Onset Date Status Penicillin Unknown Drug Allergy Active peanuts (uncoded) Unknown Allergy Ac tive REASON FOR VISIT Patient presents today for a change in bowel habit MEDICATIONS Medication SIG (Take, Route, Frequency, Duration) Notes Start Date End Date Status Omeprazole 40 MG 1 Orally Every morni ng for 30 day(s) 03/30/2023 Active Loratadine 10 MG TAKE 1 TABLET BY GOOD TH DAILY Oral for 30 Not-Taking Fluorouracil 5 % 1 application Externally Twice a day Not-Takin g Fluticasone Propionate 50 MCG/ACT SHAKE WELL AND ADMINISTER 1 SPRAY INTO EACH NOSTRIL EVERY MORNING Nasal for 60 Not-Taking Atorvastatin Calcium 20 MG 1 tablet Orally Once a day for 30 day(s) Active Naproxen Sodium 220 MG 1 tablet with ramona d or milk as needed Orally every 12 hrs Active Lisinopril 5 MG Oral for 90 Ac tive busPIRone HCl 10 MG Oral for 90 Active Glucosamine 500 MG 2 capsule with a david l Orally Once a day Not-Taking Omeprazole 40 MG 1 every am Orally On ce a day for 30 day(s) 08/20/2020 Active amLODIPine Besylate 5 MG 1 tablet Orally Once a day Active Finasteride 5 MG 1 tablet Orally Once a day for 30 day(s) Active Lexapro Active Gabapentin 300 MG 1 capsule Orally thr ee a day Active KlonoPIN Active SOCIAL HISTORY Tobacco Use: Social History Observation [...] W/U Status Risk SNOMED Code Notes Problem Heartburn (R12) Active confirmed [id number] VITAL SIGNS Temperature 97.1 degrees Fahrenheit 03/30/20 23 Blood pressure systolic 00 mm Hg 03/30/20 23 Blood pressure diastolic 00 mm Hg 023 Height 71 in 03/30/2023 Weight 230 lbs 03/30/2023 BMI 32.07 kg/m2 03/30/2023 Encounters Encounter Location Date Provider Diagnosis [facility] [address] [place] [address] 03/30/2023 Abdoulaye Ronquillo Gastroesophageal ref lux disease, unspecified whether esophagitis present K21.9 ; 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 K22.70 and Heartburn R12 ASSESSMENTS Encounter Date Diagnosis Assessment Notes Treatment Notes Treatment Clinical Notes 03/30/2023 Gastroesophageal ref lux disease, unspecified whether esophagitis present (ICD-10 - K21.9) 03/30/2023 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 (ICD-10 - K22.70) 03/30/2023 Heartburn (ICD-10 - R12) PLAN OF TREATMENT Medication Medication Name Sig Start Date Stop Date Notes Omeprazole 40 MG 1 Orally Every morning for 30 day(s) 08/2022 Future Test Test Name Order Date UPPER GI ENDOSCOPY 03/30/2023 Next Appt Details Follow Up: prn, Reason: Progress Notes * Examination Category Sub-Category Detail Notes General Examination GENERAL APPEARANCE: pleasant , well nourished, well developed, in no acute distress HEAD: EYES: sclera non-icteric EARS: NOSE: THROAT: NECK/THYROID: no cervical lymphade nopathy, neck supple HEART: S1, S2 normal CHEST: LUNGS: clear to auscultatio n bilaterally ABDOMEN: normal bowel sounds, no guarding or rigidity, no guarding or rigidity, no masses palpable, soft, nontender, nondistended NEUROLOGIC: alert and oriented SKIN: nonjaundiced, no spi noe angiomata EXTREMITIES: no edema PERIPHERAL PULSES: BACK: BREASTS: MUSCULOSKELETAL: MALE GENITOURINARY: LYMPH NODES: RECTAL EXAM: FEMALE GENITOURINARY: ORAL CAVITY: mucosa moist
--- OUTSIDE RECORDS SUMMARY | 2024-06-22 13:51 | XMS_ITS | Encounter Summary ---
Author Name [facility] [facility] [place] Address [address] [place] [address] Care Team Providers Care Residential Coordinator Name Role Phone STEPHON GUARTE Primary Care Provider Unava ilable Insurance Providers: [...] SUPPLEMEN ANTWAN MEDEX 2 Apr 26, 2017 [id number] ELIO CORTES PATIENT ANTHEM BCBS OF [place] MEDICARE SUPPLEMEN ANTWAN COH RETIR EMENT Apr 26, 2017 [id number] [phone] ELIO CORTES PATIENT [place] SUPPLEMEN ANTWAN MEDEX 2 Apr 26, 2017 [id number] ELIO CORTES [place] SUPPLEMEN ANTWAN MEDEX 2 Apr 26, 2017 [id number] ELIO CORTES [place]IENT [place] SUPPLEMEN ANTWAN MEDEX 2 Apr 26, 2017 [id number] [phone] ELIO CORTES PATIENT MEDICARE (WNR) MEDICARE (M) PART A Oct 24, 2012 PART A [id number] ELIO CORTES PATIENT MEDICARE (WNR) MEDICARE (M) PART B Oct 24, 2012 PART B [id number] ELIO CORTES PATIENT MEDICARE (WNR) MEDICARE (M) PART A Oct 24, 2012 PART A [id number] ELIO CORTES PATIENT MEDICARE (WNR) MEDICARE (M) PART B Oct 24, 2012 PART B [id number] ELIO CORTES PATIENT MEDICARE (WNR) MEDICARE (M) PART A Oct 24, 2012 PART A [id number] ELIO CORTES PATIENT MEDICARE (WNR) MEDICARE (M) PART B Oct 24, 2012 PART B [id number] ELIO CORTES PATIENT Selected Encounter This section includes the information on record at [place] for the Encounter. Date/Time Encounter Type Encounter Description Reason Pro vider Source September 17, 2023 03:09 PM Outpatient Encounter ADMIN PAT ACTIVTIES (MASNONCT) IHE Encounter Template Text not used by [place] Plan of Treatment: Future Appointments (+ 6 months) and Future Tests (+/- 45 days) The Plan of Treatment section includes future care activities for the patient from all [place] treatmentfacilities. This section includes future appointments and future orders which are active, pending or scheduled. Future Appointments This section includes appointments that were scheduled to occur 6 months from the date of the Encounter, up to a maximum of 20 appointments. The data comes from all [place] treatment facilities. Appointment Date/Time Appointment Type Appointme nt Facility Name Oct 25, 2023 08:30 AM [facility] [place] [facility] [facility] [place] [facility] Nov 23, 2023 01:00 PM AMBULATORY - MEDICINE [facility] [place] [facility] Dec 06, 2023 08:30 AM [facility] [place] [facility] Dec 24, 2023 02:00 PM [facility] [place] [facility] [facility] [place] [facility] Dec 28, 2023 02:45 PM [facility] Dec 31, 2023 02:00 PM [facility] [place] [facility] [place] [facility] Jan 06, 2024 03:00 PM [facility] [place] [facility] [place] [facility] Jan 14, 2024 02:30 PM [facility] [place] [facility] [facility] [place] [facility] Jan 18, 2024 11:30 AM [facility] Feb 24, 2024 02:30 PM [facility] - [facility] Advance Directives: All historical and current Section Date Range: From patient's date of to the date document was created. This section includes ALL of a patient's completed or amended [place] Advance and Rescinded Directives. The entries below indicate that a directive exists for the patient, but an actual copy is not included with this document. The data comes from all [place] facilities. Date Advance Directives Provider Source Apr 24, 2020 ADVANCE DIRECTIVE DWAINE DENT Encounter Notes: All associated encounter notes This section contains the clinical notes associated to the Encounter. Date/Time Encounter Note(s) Provider Source September 17, 2023 03:09 PM PHARMACY NOTE: LOCAL TITLE: PHARMACY CUSTOMER CARE MEDICATION RENEWAL STANDARD TITLE: PHARMACY NOTE DATE OF NOTE: SEPTEMBER 17, 2023@15:09 ENTRY DATE: SEPTEMBER 17, 2023@15:09:11 AUTHOR: CHUCK HERNANDES COSIGNER: URGENCY: STATUS: COMPLETED Date: August Division: [place] Pt referred by Pharmacy Call Center for medication renewal: Medications requested: [id number] OMEPRAZOLE 20MG EC CAP Defer to primary care provider To be mailed . Please review and renew if appropriate. *This note was generated by [facility] Customer Care. If you have any questions or need assistance, do not contact this author. Please refer all questions to your local, on-site pharmacy departments. /harpal/ Loraine HERNANDES CPhT [employer], [place]/Pharmacy Customer Care Signed: 09/17/2023 15:09 Receipt Acknowledged By: 09/23/2023 12:29 /es/ STEPHON UGARTE MD PHYSICIAN 09/17/2023 15:56 /es/ EZIO ARMENTA,RN REGISTERED NURSE for [facility]
--- OUTSIDE RECORDS SUMMARY | 2024-06-22 13:51 | XMS_ITS | Encounter Summary ---
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 Cultivator Name Role Phone STEPHON UGARTE Primary Care [...] SUPPLEMEN ANTWAN MEDEX 2 Apr 26, 2017 [id number] MARCIAL VILLAELIO PATIENT ANTHEM BCBS OF CT MEDICARE SUPPLEMEN ANTWAN COH RETIR EMENT Apr 26, 2017 [id number] [phone] MARCIAL VILLAELIO PATIENT BCBS DE MEDICARE SUPPLEMEN ANTWAN MEDEX 2 Apr 26, 2017 [id number] [phone] ELIO CORTES PATIENT BCBS DE MEDICARE SUPPLEMEN ANTWAN MEDEX 2 Apr 26, 2017 [id number] [phone] ELIO CORTES PATIENT BCBS DE MEDICARE SUPPLEMEN ANTWAN MEDEX 2 Apr 26, 2017 [id number] ELIO CORTES PATIENT MEDICARE (WNR) MEDICARE (M) PART A Oct 24, 2012 PART A [id number] ELOI CORTES PATIENT MEDICARE (WNR) MEDICARE (M) PART B Oct 24, 2012 PART B [id number] ELIO CORTES PATIENT MEDICARE (WNR) MEDICARE (M) PART A Oct 24, 2012 PART A [id number] ELIO CORTES PATIENT MEDICARE (WNR) MEDICARE (M) PART B Oct 24, 2012 PART B [id number] [phone] ELIO CORTES PATIENT MEDICARE (WNR) MEDICARE (M) PART A Oct 24, 2012 PART A [id number] ELIO CORTES PATIENT MEDICARE (WNR) MEDICARE (M) PART B Oct 24, 2012 PART B [id number] [phone] ELIO CORTES PATIENT Selected Encounter This section includes the information on record at [place] for the Encounter. Date/Time Encounter Type Encounter Description Reason Provider Source Oct 25, 2023 08:30 AM OFFICE O/P EST MOD 30 MIN PRIMARY CARE/MEDICINE ICD-10-CM Z00.01 Encounter for general adult medical exam w abnormal findings TRACIE UGARTE Julee Encounter Template Text not used by [place] Assessments - Encounter Diagnoses This section includes the primary and secondary diagnoses documented for the Encounter. Date/Time Primary/Secondary Diagnosis Diagnosis Name Provider Source Nov 23, 2023 01:03 PM PRIMARY Encounter for general adult medical exam w abnormal findings RIRI UGARTE Nov 23, 2023 01:03 PM SECONDARY Obesity, unspecified RIRI UGARTE Plan of Treatment: Future Appointments (+ 6 [...] 20 appointments. The data comes from all [place] treatment facilities. Appointment Date/Time Appointment Type Appointme nt Facility Name Nov 23, 2023 01:00 PM [facility] [place] [facility] Dec 06, 2023 08:30 AM AMBULATORY [facility] PS[facility]CHIATRY [facility] [place] [facility] Dec 24, 2023 02:00 PM AMBULATORY [facility] MEDIC[facility] [place] [facility] Dec 28, 2023 02:45 PM AMBULATORY - MEDICINE [facility] Dec 31, 2023 02:00 PM AMBULATORY - MEDICINE [facility] [place] [facility] Jan 06, 2024 03:00 PM AMBULATORY - MEDICINE [facility] [place] [facility] Jan 14, 2024 02:30 PM AMBULATORY [facility] MEDICINE [facility] [place] [facility] Jan 18, 2024 11:30 AM AMBUL[facility] [place]IC[place] [facility] [place] [facility] Feb 24, 2024 02:30 PM [place] [facility] [place] [facility] Apr 11, 2024 02:00 PM AM[place] [facility] [place] [facility] Lab Results: +/- 30 days of the encounter This section includes the Chemistry and Hematology Lab Results on record with [place] for the patient. Radiology Reports and Pathology Reports are provided separately, in subsequent sections. Lab Results This section contains the Chemistry/Hematology Results that were resulted 30 days before or 30 daysafter the date of the Encounter. Date/Time Source Result Type Result - Unit Interpretation Reference Range Comment Oct 18, 2023 11:26 AM [facility] LIPID PANEL FASTING Specimen Type: SERUM No comment entered. Ordering Provider: TRACIE UGARTE Report Released Date/Time: Oct 23, 2022 03:11 PM Reporting Lab: [facility] [address] [address] Performing Lab: [facility] [address] [address] CHOLESTEROL 156 mg/dL TRIGLYCERIDE 108 mg/dL 0-150 LDL calculated 93 mg/dL 0-129 CHOL/HDL 3.8 HDL CHOLESTEROL 41 mg/dL 40-60 Oct 18, 2023 11:26 AM [place] [facility] LIVER FUNCTION Specimen Type: SERUM No comment entered. Ordering Provider: TRACIE UGARTE Report Released Date/Time: Oct 23, 2022 03:11 PM Reporting Lab: [address] [address] Performing Lab: [address] [address] PROTEIN,TOTAL 6.5 g/dL 6.0-8.3 ALBUMIN 3.8 g/dL 3.5-5.0 ALKALINE PHOSPHATASE 79 U/L 40-150 AST 24 U/L 5-34 ALT 22 U/L BILIRUBIN, TOTAL 0.7 mg/dL 0.2-1.2 Oct 18, 2023 11:26 AM [facility] BASIC METABOLIC PANEL (fasting) Specimen Type: SERUM No comment entered. Ordering Provider: TRACIE UGARTE Report Released Date/Time: Oct 23, 2022 03:11 PM Reporting Lab: [address] [address] Performing Lab: [address] [address] UREA NITROGEN 23 mg/dL 7-25 GLUCOSE 94 mg/dL 65-100 SODIUM 139 mmol/L 135-145 POTASSIUM 4.5 mmol/L 3.5-5.0 CHLORIDE 107 mmol/L 100-110 CO2 25 meq/L 20-30 CREATININE, Serum 1.32 mg/dL 0.50-1.40 eGFR(CKD-EPI 2020) 56 mL/min L >60 Oct 18, 2023 11:26 AM [facility] HEMOGLOBIN A1C PANEL Specimen Type: BLOOD Comment: Values obtained from A1C measurements can vary. For atypical A1C assays, a reported value of 7.0 could actually be between 6.72 and 7.28 if measured by a reference method. A reported value of 9.0 could actually be between 8.73 and 9.27. Ref: http://www.ngs p.org/CAPdata. asp Ordering Provider: TRACIE UGARTE Report Released Date/Time: Oct 23, 2022 03:11 PM Reporting [facility] [address] [address] Performing Lab: [facility] [address] [address] HEMOGLOBIN A1C 5.8 H 4.0-5.6 Oct 18, 2023 11:26 AM [facility] TSH Specimen Type: SERUM No comment entered. Ordering Provider: TRACIE UGARTE Report Released Date/Time: Oct 23, 2022 03:11 PM Reporting Lab: [facility] [address] [address] Performing Lab: [facility] [address] [facility] [address] TSH 2.10 u[IU]/mL 0.35-5.00 Oct 18, 2023 11:26 AM [facility] CBC AND DIFF (AUTO) Specimen Type: BLOOD No comment entered. Ordering Provider: TRACIE UGARTE Report Released Date/Time: Oct 23, 2022 03:11 PM Reporting Lab: [facility] [address] [address] Performing Lab: [facility] [address] [address] WBC 4.92 10*3/uL 4.50-11.00 RBC 5.27 10*6/uL 4.23-5.66 HGB 14.2 g/dL 12.8-17 HCT 43.4 39.2-50.4 MCV 82.4 fL 82-99 MCHC 32.7 g/dL 30.8-35.1 PLT 200 10*3/uL 140-360 RDW-CV 13.8 12.0-16.0 MONO, ABS 0.48 10*3/uL 0.30-1.10 MCH 26.9 pg 26.2-32.6 NEUT % 63.8 43.7-75.8 LYMPH % 22.2 14.0-42.3 MONO % 9.8 5.1-13.7 EOS % 2.8 0.4-6.8 BASO % 1.0 0.1-2.0 NEUT, ABS 3.14 10*3/uL 2.20-7.60 LYMPH, ABS 1.09 10*3/uL 1.00-3.20 EOS, ABS 0.14 10*3/uL 0.03-0.44 BASO, ABS 0.05 10*3/uL 0.01-0.13 IMMATURE GRAN % 0.4 0.0-0.7 IMMATURE GRAN, ABS 0.02 10*3/uL 0.00-0.06 NRBC % 0.0 0.0-0.0 NRBC, ABS 0.00 10*3/uL 0.00-0.00 Social History: Smoking Status (Most current) and Tobacco Use (All prior to encounter date) This section includes the most current, and the historical, smoking and tobacco- related health factors from the [place] facility where the Encounter took place. Current Smoking Status This section includes the most current smoking, or tobacco-related health factor, from the [place] facility where the Encounter took place. Date/Time Current Smoking Status Comment Facil ity Oct 25, 2023 08:30 AM VA-TOBACCO NEVER USED [place] Tobacco Use History This section includes a history of the smoking, or tobacco-related health factors, that were collected on or before the date of the Encounter. The data comes from the [place] facility where the Encounter took place. Date/Time Smoking Status/Tobacco Use Comment F acility Mar 23, 2022 01:30 PM VA-TOBACCO NEVER USED [place] September 12, 2020 10:30 AM VA-TOBACCO NEVER USED [place] May 31, 2019 02:48 PM VA-TOBACCO FORMER USER [place] May 31, 2019 02:48 PM VA-TOBACCO QUIT 5 TO < 15 YRS [place] Advance Directives: All historical and current Section Date Range: From patient's date of to the date document was created. This section includes ALL of a patient's completed or amended [place] Advance and Rescinded Directives. The entries below indicate that a directive exists for the patient, but an actual copy is not included with this document. The data comes from all [place] facilities. Date Advance Directives Provider Source Apr 24, 2020 ADVANCE DIRECTIVE DWAINE DENT Encounter Notes: All associated encounter notes This section contains the clinical notes associated to the Encounter. Date/Time Encounter Note(s) Provider Source Oct 25, 2023 08:44 AM PREVENTIVE MEDICIN E NURSING NOTE: LOCAL TITLE: CLINICAL REMINDERS/NURSING STANDARD TITLE: PREVENTIVE MEDICINE NURSING NOTE DATE OF NOTE: OCT 25, 2023@08:44 ENTRY DATE: OCT 25, 2023@08:44:41 AUTHOR: SCHUYLER CHAVEZIGNER: URGENCY: STATUS: COMPLETED Advance Directive Screen MH AD: Patient has an Advance Directive on file at this [facility]. No updates are needed at this time. The patient received education about Advance Directives and written notification of his/her rights. Homelessness/Food Insecurity Screen: In the past 2 months, have you been living in stable housing that you own, rent, or stay in as part of a household? Yes - Living in stable housing. Are you worried or concerned that in the next 2 months you may NOT have stable housing that you own, rent, or stay in as part of a household? No - Not worried about housing near future [facility] reports the following: Within the past 12 months, you worried whether your food would run out before you got money to buy more. Never true Within the past 12 months, the food you bought just didn't last and you didn't have money to get more. Never true Depression Screening: Perform PHQ-2 A PHQ-2 screen was performed. The score was 0 which is a negative screen for depression. Over the past two weeks, how often have you been bothered by the following problems? 1. Little interest or pleasure in doing things Not at all 2. Feeling down, depressed, or hopeless Not at all Falls & Incontinence Screen: Falls Screen: During the past 12 months, did the patient report any falls? 4. No falls within the past year. Incontinence Screen: During the past 12 months, has the patient has any characteristics of incontinence (ability, voiding, leakage, etc.)? No incontinence. HIV Screening: Patient has been offered HIV testing and has declined. I have explained that HIV testing is recommended for all adults, even if all risk factors are absent. The patient was educated on the risk of delayed screening. Pneumococcal Conjugate Vaccine (PCV15/PCV20): Defer due to a PRECAUTION Tobacco Use Screening: The patient has never used tobacco. Influenza Immunization: No influenza vaccination was received during the recent influenza season. Alcohol Use Screen (AUDIT-C): Alcohol Screen: SCREEN FOR ALCOHOL (AUDIT-C) An alcohol screening test (AUDIT-C) was negative (score=0). 1. How often did you have a drink containing alcohol in the past year? Consider a drink to be a 12 ounce can or bottle of regular beer, 8 ounces of malt liquor, a 5 ounce glass of table wine, or a 1.5 ounce shot of liquor (like scotch, gin, or vodka). Never 2. How many drinks containing alcohol did you have on a typical day when you were drinking in the past year? Response not required due to responses to other questions. 3. How often did you have six or more drinks on one occasion in the past year? Response not required due to responses to other questions. COVID-19 Immunization: Defer due to a PRECAUTION Reason: def HTN Assess for Elevated BP>=140/90: The patient was counseled on the importance of regular exercise and/or physical activity in the control of blood pressure. Sexual Orientation: The patient thinks of their sexual orientation as: Straight or Heterosexual RHS Screen: RHS Screen Session Format: Face to Face Environmental Check Upon inquiry, the individual reports that the environment is safe to proceed. Informed Consent to Screen and Document The individual consents to proceed with screening. The individual consents to documentation of responses. PRIMARY SCREEN: In the past 12 months, how often did a current or former intimate partner (e.g., boyfriend, girlfriend, , , sexual partner): 1. Scream or curse at you Never 2. Insult or talk down to you Never 3. Threaten you with harm Never 4. Physically hurt you Never 5. Force or pressure you to have sexual contact against your will, or when you were unable to say no Never ?? The HITS tool (items 1-4 above) is [place] copyright protected by Remi Ha MD, and the user has full rights to use it throughout the [place] system. PRIMARY SCREEN RESULT: The Primary Screen is NEGATIVE. The individual answered never to all forms of IPV above (i.e., answered never to all 5 items) The individual accepts education and/or resources: No EDUCATION: The individual indicated readiness to learn. Education offered during this session as noted above. The individual indicated understanding by asking relevant questions and making appropriate comments. No barriers to learning were observed or identified. MED REC COMPLETED BY PROVIDER DURING VISIT. /harpal/ SCHUYLER CHAVEZ LPN LPN Signed: 10/25/2023 08:48 SCHUYLER CHAVEZ [place] Oct 25, 2023 08:40 AM PHYSICIAN NOTE: LOCAL TITLE: MD NOTE STANDARD TITLE: PHYSICIAN NOTE DATE OF NOTE: OCT 25, 2023@08:40 ENTRY DATE: OCT 25, 2023@08:40:52 AUTHOR: STEPHON UGARTE EXP COSIGNER: URGENCY: STATUS: COMPLETED CC: 77 year old WHITE MALE SERVICE CONNECTED % - 60 HPI: Patient followed by Michelle PCP with recent dose addition of lisinopril. Jesus thinks he's gaining weight but continues to be active. Recently seen by nephrology. Requesting [facility]. Goes to [employer] [facility]. Several months of dry cough. ++postnasal ggthas rx for flonase but not using Concerns about ear blockage. No alcohol/smoking. Stays with GF. Wantys to see chiropractor for back. Problem list and medications reviewed. Last Labs: Sep 2023 Active problems - Computerized Problem List is the source for the followin. Attention deficit hyperactivity disorder Adderall 10mg bid 2. Prediabetes Feb 2022 A1c 5.7 (rising trend) 3. Chronic Kidney Disease Stage 3B ([facility] [id number]) 4. Gastroesophageal reflux disease without esophagitis s/p panendoscopy 08/2020; rec repeat in 2023 5. Prostate cancer s/p XRT followed by Dr. Varela on finasteride 6. Hypercholesterolemia on low intensity atorvastatin / omega-krill oil 7. Hypertension on amlodipine 10mg 8. CoManagement nonVA PCP 9. Anxiety disorder Escitalopram/duloxetine buspar 10 tid PHYSICAL EXAMINATION/DIRECTED EXAM: BP:157/83 (10/25/2023 08:43) Resp:20 (10/25/2023 08:43) Temp:97.3 F [36.3 C] (10/25/2023 08:43) Pulse:73 (10/25/2023 08:43) WEIGHT 10/25/2023 08:43 239(108.41)[32*] 04/02/2023 10:39 236.5(107.27)[33*] 10/23/2022 14:36 232(105.23)[32*] Comfortable S1S2 RRR lungs CTA Benign abdomen No edema ASSESSMENT & PLAN: 77 year old MALE SERVICE CONNECTED % - 60 [facility] presents for annual visit. Noted increased weightalong with changes in blood pressure. Patient continues to work on his weight but is amenable to hypnosis trials Cough - likely postnasal, discuss differential Prediabetes - worsening trend; discussed. Uncontrolled HTN - as per nonVA PCP. Declined sleep study Nonradicular chronic back pain - chiropractor Plan of care discussed with patient who articulates understanding. Chronic issues reviewed briefly; no changes to management unless specified above. RTC annually TIME ATTESTATION: Time spent directly with the patient was ( x ) 30 minutes More than 50% of the time spent with the patient included counselling regarding the admission Medical Review, History and Physical Examination, discussion of the findings, both remote and local data in the medical record, management, and patient education for the annotated medical conditions above. Discussed with patient and agrees to plan. VA and Non VA meds were reconciled. Today's documentation was made using voice recognition software. This note may contain spelling/grammatical errors secondary to this software. Patient provided copies of labs/studies and medication list. Upcoming Appointments: 01/18/2024 11:30 CWM/SO/PODIATRY/ROSS 06/08/2024 15:30 CWM/NO/OPTOMETRY/MERHAR Med Reconciliation: Active Outpatient Medications (including Supplies): Active Outpatient Medications Status ======= 1) AMLODIPINE BESYLATE 5MG TAB TAKE ONE TABLET BY MOUTH ACTIVE ONCE DAILY FOR BLOOD PRESSURE/HEART, DO NOT TAKE WITH GRAPEFRUIT JUICE 2) ATORVASTATIN CALCIUM 80MG TAB TAKE ONE-HALF TABLET BY ACTIVE MOUTH ONCE DAILY FOR CHOLESTEROL 3) BUSPIRONE HCL 10MG TAB TAKE ONE TABLET BY MOUTH THREE ACTIVE TIMES A DAY FOR ANXIETY 4) CARBOXYMETHYLCELLULOSE NA 0.5% OPH SOLN INSTILL 1 ACTIVE DROP INTO EACH EYE FOUR TIMES DAILY NEEDED FOR DRY EYE 5) ESCITALOPRAM OXALATE 10MG TAB TAKE ONE-HALF TABLET BY ACTIVE MOUTH TWICE DAILY FOR MAJOR DEPRESSIVE DISORDER FOR MOOD/DEPRESSION 6) FINASTERIDE 5MG TAB TAKE ONE TABLET BY MOUTH ONCE ACTIVE DAILY NEEDED FOR PROSTATE 7) FLUTICASONE PROP 50MCG 120D NASAL INHL INSTILL 2 ACTIVE SPRAYS INTO EACH NOSTRIL ONCE DAILY FOR NASAL IRRITATION/INFLAMMATION MAY DECREASE TO 1 SPRAY/NOSTRIL WHEN CONTROLLED 8) GABAPENTIN 600MG TAB TAKE ONE-HALF TABLET BY MOUTH ACTIVE TWICE DAILY FOR NERVE PAIN 9) OMEPRAZOLE 20MG EC CAP TAKE ONE CAPSULE BY MOUTH ACTIVE TWICE DAILY FOR GASTROESOPHAGEAL REFLUX DISEASE Pending Outpatient Medications Status ======= 1) LISINOPRIL 10MG TAB TAKE ONE TABLET BY MOUTH ONCE PENDING DAILY TO CONTROL BLOOD PRESSURE Active Non-VA Medications Status ======= 1) Non-VA CLONAZEPAM 0.5MG TAB 0.5MG BY MOUTH TWICE ACTIVE DAILY NEEDED 2) Non-VA FISH OIL 500MG DHA/EPA CAP,ORAL BY MOUTH ONCE ACTIVE DAILY 3) Non-VA GLUCOSAMINE CAP/TAB 1000MG BY MOUTH ONCE DAILY ACTIVE 4) Non-VA LISINOPRIL 10MG TAB 10MG BY MOUTH ONCE DAILY ACTIVE 5) Non-VA LYSINE CAP/TAB 500MG BY MOUTH ONCE DAILY ACTIVE 6) Non-VA NAPROXEN 500MG TAB 500MG BY MOUTH ONCE DAILY ACTIVE 16 Total Medications Medication (Local) Status SUNSCREEN 30-50/AVOBENZONE/PABA-F LOTION Directions: APPLY A LIBERAL AMOUNT TOPICALLY NEEDED TO PREVENT SUNBURN Quantity: 480 for 90 days Provider: STEPHON UGARTE Expires: 10/24/23 Status: SUNSCREEN 30-50/PHY BLOCK/PABA-F FACE CR Directions: APPLY A LIBERAL AMOUNT TOPICALLY NEEDED TO PREVENT SUNBURN Quantity: 360 for 90 days Provider: STEPHON UGARTE Expires: 10/24/23 Status: PHENTERMINE 7.5/TOPIRAMATE 46MG SA CAP Directions: TAKE 1 CAPSULE BY MOUTH EVERY MORNING FOR WEIGHT LOSS MANAGEMENT WITH OR WITHOUT FOOD Quantity: 30 for 30 days Provider: STEPHON UGARTE Expires: 08/14/23 Status: Medication (Remote) Status No remote medications found. /harpal/ STEPHON UGARTE MD PHYSICIAN Signed: 10/25/2023 09:15 STEPHON UGARTE [place]
--- OUTSIDE RECORDS SUMMARY | 2024-06-22 13:51 | XMS_ITS | Clinical Summary ---
Author Organization [facility] it Address [address] [place] [address] Care Team Providers Care Institution Director Name Role Phone Edna Laird MD Primary Care Provider Allergies Active Allergy Reactions Criticality Noted Date Comments Peanut 01/16/2013 Other Reaction(s): Hives/Urticaria Peanut Butter Flavor 12/05/2018 Other Reaction(s): Rash/Dermatitis Penicillins 01/21/2006 Other Reaction(s): Rash/Dermatitis Medications amLODIPine (NORVASC) 5 mg tablet Take 1 tablet by mouth daily. 1 Active escitalopram (LEXAPRO) 5 mg tablet TAKE 1 TABLET TWICE A DAY 1 Active atorvastatin (LIPITOR) 20 mg tablet TAKE 1 TABLET DAILY 1 Active omeprazole (PriLOSEC) [address] capsule Take 40 mg by mouth daily. Active finasteride (PROSCAR) 5 mg tablet TAKE 1 TABLET DAILY 1 Active clonazePAM (KlonoPIN) 0.5 mg tablet Take 1 tablet by mouth 2 times daily as needed for Anxiety. 1 Active cetirizine (ZyrTEC) 10 mg tablet Take 1 Tab by mouth at bedtime. 1 Active gabapentin (NEURONTIN) 300 mg capsule Take 1 Cap by mouth 3 times daily. 1 Active fluorouraciL (EFUDEX) 5 % cream Apply sparingly to affected area on left side of face twice a day Wednesday through Wednesday x 4 weeks 0 Active fluticasone propionate (FLONASE) 50 mcg/actuation nasal spray SHAKE WELL AND ADMINISTER 1 SPRAY INTO EACH NOSTRIL EVERY MORNING 0 Active mometasone (ELOCON) 0.1 % cream Apply sparingly 1 - 2 times a day to affected areas as needed ... apply before ointment 0 Active lysine 500 mg tablet Take 1 Tab by mouth daily. Active GLUCOSAMINE HCL ORAL Take 1 Tab by mouth daily. Active Active Problems Problem Noted Date Diagnosed Date Hiatal hernia 01/03/2021 Sigmoid diverticulosis 01/03/2021 Overview (04/20/2024): Colonoscopy 08/2020 Internal hemorrhoids 01/03/2021 Overview (04/20/2024): Colonoscopy 08/2020 PVD (peripheral vascular disease) 11/14/2020 Prediabetes 08/30/2020 Obesity (BMI 30.0-34.9) 07/22/2020 Dysthymia 08/26/2017 Hypertension 12/12/2010 Dizziness 07/26/2009 Overview (04/20/2024): See neurology note 06/04/09, nonspecific MRI. Anxiety 05/10/2009 Hematuria 10/25/2007 Overview (04/20/2024): FOLLOWED BY dR. BERYL OKEEFE, ?KIDNEY CYST, REPEATED us, ct Pt now is followed by Dr. Varela, prostate biopsy, cystoscopy (-) 2008 IMO update Renal cyst 10/25/2007 Overview (04/20/2024): US 04/02, competely negative Hyperlipidemia 01/21/2006 Immunizations Name Administration Dates Next Due Influenza Quadravalent, MDCK , 0.5ml, with preservative (Flucelvax) 6mo and older 02/07/2017 Influenza trivalent, 0.5mL ( Fluzone High-dose) 65yo and older 01/31/2021,01/03/2018,01/10/2015 Influenza trivalent, with pr eservative (Fluzone; Afluria) 6mo and older 03/03/2016,02/09/2014,01/16/2013,01/25,02/10/2011,02/11/2010,01/18/2009 ,02/17/2008,02/14/2007 Influenza, Unspecified 02/14/2019 Moderna SARS-CoV-2 COVID-19, mRNA, LNP-S, preservative free 07/23/2020,07/02/2020 Pfizer SARS-CoV-2 COVID-19, mRNA, LNP-S, preservative free 03/11/2021 Pneumococcal conjugate 13 va lent (Prevnar 13, PCV13) 2mo and older 02/16/2020,03/03/2016 Pneumococcal polysaccharide 23 valent (Pneumovax 23) 2yo and older 02/20/2021,07/18/2013,05/23/2007 Td Tetanus diptheria (Tdvax) 7yo and older 01/18/2018 Tdap Tetanus diptheria acell ular pertussis (Boostrix; Adacel) 7yo and older 05/23/2007 Zoster Live 11/20/2011 Zoster recombinant (Shingrix ) 19yo and older 03/29/2020 Surgical History Surgery Date Site/Laterality Comments OTHER SURGICAL HISTORY PROCEDURE: ---- OTHER ----; COMMENT: basal cell and scc CATARACT EXTRACTION PROCEDURE: HISTORICAL CATARACT REMOVAL OTHER SURGICAL HISTORY PROCEDURE: HISTORICAL MELANOMA Medical History Medical History Date Comments Pure hypercholesterolemia 01/21/2006 DX:Pur e hypercholesterolemia Depressive disorder, not els ewhere classified 01/21/2006 DX:Depressive disorder, not elsewhere classified Obesity, unspecified 09/16/2006 DX:Obesity, unspecified Hematuria 10/25/2007 DX:Hematuria; CO MMENT: FOLLOWED BY dR. BERYL OKEEFE, ?KIDNEY CYST, REPEATED us, ct Historical Medical DX 10/25/2007 DX:Kidney cyst Historical Medical DX 07/15/2008 DX:BPH Dizziness 07/26/2009 DX:Dizziness Hyperlipidemia 01/21/2006 DX:Hyperlipidemi a Hypertension 12/12/2010 DX:Hypertension MDD (major depressive disorder) 06/10/2011 DX:MDD (major depressive disorder) Anxiety 05/10/2009 DX:Anxiety Renal cyst 10/25/2007 DX:Renal cyst History of basal cell carcinoma 10/06/2005 DX:History of basal cell carcinoma; COMMENT: BCC 07/01 chest (superficial) 06/30 right shoulder (superficial/nodular) 01/28 chest 06/24 forehead(infiltrative) clavicle OD/upper lid IMO update History of squamous cell car cinoma of skin 10/06/2005 DX:History of squamous cell carcinoma of skin; COMMENT: SCC 08/03 right foot (in situ) 01/28 & 08/26 left ear History of actinic keratoses 12/23/2009 DX: History of actinic keratoses; COMMENT: Actinic Keratosis 12/03 left ear History of colonoscopy 07/2017 DX:Histor y of colonoscopy PVD (peripheral vascular dis ease) ([facility]) 11/14/2020 DX:PVD (peripheral vascular disease) ([facility]) Family History Medical History Relation Name Comments Alcohol abuse Brother Tuberculosis Father Heart attack Mother from [place] ag e 74, stroke Relation Name Status Comments Brother (Age 70's) Father (Age 51) Mother (Age 75) Social History Tobacco Use Types Packs/Day Years Used Date Smoking Tobacco: Former Smokeless Tobacco: Former Alcohol Use Standard Drinks/Week Comments No 0 (1 standard drink = 0.6 oz pur e alcohol) Sex and Gender Information Value Date Recorded Sex Assigned at Not on file Legal Sex Male 9:23 PM EST Gender Identity Not on file Sexual Orientation Not on file Obstetrics History Last Filed Vital Signs Vital Sign Reading Time Taken Comments Blood Pressure 148/70 08/12/2023 2:46 PM EDT Sit ting L Arm Pulse 64 08/12/2023 2:46 PM EDT Temperature - - Respiratory Rate - - Oxygen Saturation - - Inhaled Oxygen Concentration - - Weight 108 kg (238 lb) 08/12/2023 2:46 PM EDT Height - - Body Mass Index - - Plan of Treatment Upcoming Encounters Date Type Department Care Team (Late st Contact Info) Description 08/17/2024 3:45 PM EDT Office Visit Nephrology [facility] [place] [address] [place] [address] Keyshawn Clinton MD [address] [id number] Health Maintenance Due Date Last Done Comments Zoster Vaccines (3 of 3) 05/24/2020 03/29/2020, 10/25 Depression Screening 04/04/2022 Falls Risk Assessment 04/04/2022 Social Influencers of Health Screening 04/04/2022 RSV Immunization Patients 60+ Years Old (1 - 1-dose 75+ series) 11/02/2022 Hypertension/CHF/CAD Annual BMP Blood Test 07/24/2023 07/23/2022 COVID-19 Vaccine ( - season) 2023 03/11/2021, 07/23/2020, 07/02/2020 Influenza Vaccine (#1) 2023 , 03/21/2022, 01/31/2021, Additional history exists Cholesterol Screening (Lipid Panel) 06/28/2025 06/28/2020 DTaP,Tdap,and Td Vaccines (3 - Td or Tdap) 01/19/2028 01/18/2018, 05/23/2007 Hepatitis C Screening Completed 07/11/2013 Pneumococcal Vaccine: 50+ Years Completed 02/20/2021, 02/16/2020, 03/03/2016, Additional history exists HIB Vaccines Aged Out No longer eligi ble based on patient's age to complete this topic HPV Vaccines Aged Out No longer eligi ble based on patient's age to complete this topic Hepatitis A Vaccines Aged Out No long er eligible based on patient's age to complete this topic Hepatitis B Vaccines Aged Out No long er eligible based on patient's age to complete this topic IPV Vaccines Aged Out No longer eligi ble based on patient's age to complete this topic MMR Vaccines Aged Out No longer eligi ble based on patient's age to complete this topic Meningococcal ACWY Vaccine Aged Out N o longer eligible based on patient's age to complete this topic Meningococcal B Vacine Aged Out No lo nger eligible based on patient's age to complete this topic RSV Immunization Patients Under 20 months Aged Out No longer eligible based on patient's age to complete this topic Varicella Vaccines Aged Out No longer eligible based on patient's age to complete this topic Procedures Procedure Name Priority Date/Time Associated Diagnosis Comments ANNUAL BMP BLOOD TEST Routine 07/23/2022 LIPID PANEL Routine 06/28/2020 HEPATITIS C SCREENING Routine 07/11/2013 from Last 3 Months or Most Recently Relevant to Health Maintenance Results * Annual BMP Blood Test (07/23/2022) Pathologist [facility] Annual BMP Blood Test abstracted Historical Provider HEALTH MAINTENANCE Final Result * Lipid panel (06/28/2020) [facility] LDL/HDL Ratio 3 0 - 4 Triglycerides 76 0 - 150 mg/dL Cholesterol 144 0 - 200 mg/dL HDL 49 >=40 mg/dL LDL Cholesterol 80 0 - 100 mg/dL Blood Venous blood specimen / Unknown Historical Provider LAB BLOOD ORDERABLES Odalys l Result * Hepatitis C Screening (07/11/2013) [facility] Hepatitis C Screening abstracted Historical Provider HEALTH MAINTENANCE Final Result from Last 3 Months or Most Recently Relevant to Health Maintenance Care Teams Institution Director Relationship Specialty Start Date End Date Edna Laird MD [address] [place] [address] PCP - General Internal Medicine 01/03/21
--- OUTSIDE RECORDS SUMMARY | 2024-06-22 13:51 | XMS_ITS ---
Author Organization [facility] Address [address] [place] [address] Care Team Providers Care Safety And Security Manager Name Role Phone Joanne Bejarano MD Primary Care Provider Abdoulaye Cast [phone] REASON FOR VISIT gerd, timmons's, heartburn PROBLEMS Problem Type ICD Code Onset Dates Problem Status W/U Status Risk SNOMED Code Notes Problem Gastro-esophagea l reflux disease without esophagitis (K21.9) Active confirmed Gastro-esophage al reflux disease without esophagitis ([id number]) Problem Gastritis, chronic (K29.50) Active confirmed Chronic gastritis (7604768) Encounters Encounter Location Date Provider Diagnosis [facility] [place] [facility] [address], [place] [id number] 06/21/2023 Abdoulaye Ronquillo Gastro-esophageal reflux disease without esophagitis K21.9 ; Other specified disease of esophagus K22.89 ; Hiatal hernia K44.9 and Gastritis, chronic K29.50 ASSESSMENTS Encounter Date Diagnosis Assessment Notes Treatment Notes Treatment Clinical Notes 06/21/2023 Gastro-esophageal reflux disease without esophagitis (ICD-10 - K21.9) 06/21/2023 Other specified disease of esophagus (ICD-10 - K22.89) 06/21/2023 Hiatal hernia (ICD-10 - K44.9) 06/21/2023 Gastritis, chronic (ICD-10 - K29.50) PLAN OF TREATMENT No Information
== END 2024-06-22 11:22 | disposition home or self-care (01) ==
LOC: HO.LAB 11:21
PROVIDERS: PCP Internal Medicine; Visit Provider Internal Medicine
DX: N28.9 Disorder of kidney and ureter, unspecified (principal); E78.00 Pure hypercholesterolemia, unspecified
CPT/HCPCS: 36415; 80053; 80061; 82607; 82746; 83036; 84439; 84443; 85025

== ENCOUNTER 2024-06-26 09:56 | Outpatient (AMB) | payer MEDICARE, SELFPAY ==
[2024-06-26 10:05] VITALS: BP 132/68; PULSE 86; O2SAT 95; BMI 32.6
--- NOTE | 2024-06-26 10:05 | MHC.PC.OV ---
Vital Signs 06/26/24 10:05 Height 5 ft 11 in Weight 234 lb BMI 32.6 BP 132/68 Blood Pressure Location Lt brachial Position Sitting Pulse 86 Pulse Source Pulse Oximeter Pulse Oximetry (%) 95 Oxygen Delivery Method Room Air Intake Visit Reasons: HTN, IGT Allergies lisinopril Allergy (Intermediate, Unverified 06/26/24 10:36) Cough Penicillins Allergy (Intermediate, Verified 06/26/24 10:07) HIVES peanut [PEANUT] Allergy (Unknown, Verified 06/26/24 10:07) UNKNOWN Tobacco use date assessed: 06/26/24 Fall risk assessment: No Falls in past year Last assessed Fall Risk: 06/26/24 Dental Screening Dental Screen Date: 06/26/24 Did you have a dental visit in the last 12 months?: Yes Did you have a dental problem in the last 6 months where you did not have access to dental care?: No Was dental information given to patient?: Patient has dentist ON [facility] Medical History (Updated 03/17/24 @ 17:53 by Joanne Bejarano MD) Impacted cerumen of both ears Recent change in frequency of bowel movements Left knee pain Post-nasal drip Low back pain GERD (gastroesophageal reflux disease) History of skin cancer Depression Elevated cholesterol HTN (hypertension) History of prostate cancer Surgical History History of cataract surgery H/O colonoscopy Family History Mother No problems noted. Father Tuberculosis Brother No problems noted. Sister No problems noted. Son No problems noted. Son No problems noted. Social History Housing: House Alcohol intake: former Patient Tobacco Use Status: Former Tobacco user Tobacco use type: Cigarette Years Smoked: quit 1999 e-Cigarette/Vaping Use: Never Used Second Hand Smoke Exposure: No Current occupational status: retired Cognitive needs: No Hearing needs: No Vision needs: Yes Questionnaire PHQ-9 Over the last 2 weeks, how often have you been bothered by any of the following problems? 1. Little interest or pleasure in doing things: not at all 2. Feeling down, depressed, or hopeless: several days 3. Trouble falling or staying asleep, or sleeping too much: several days 4. Feeling tired or having little energy: not at all 5. Poor appetite or overeating: several days 6. Feeling bad about yourself - or that you are a failure or have let yourself or your family down: several days 7. Trouble concentrating on things, such as reading the newspaper or watching television: several days 8. Moving or speaking so slowly that other people could have noticed. Or the opposite - being so fidgety or restless that you have been moving around a lot more than usual: not at all 9. Thoughts that you would be better off or of hurting yourself in some way: not at all Total score: 5 Depression Screening Interpretation: Positive Depression Screening Done: Yes 73403 - PHQ-9 Billing: Yes Source: Developed by Drs. Abdoulaye White, Mone Robles, Rico Holguin and colleagues, with an educational rasta from [employer]. Thrive Questionnaire Date Thrive assessed: 06/26/24 I am a: Patient What is your living situation today?: I have a steady place to live Within the past 12 months, did the food you bought not last and you didn't have the money to get more?: Never true Within the past 12 months, did you worry whether your food would run out before you got money to buy more?: Never true Do you have trouble paying for medicines?: No Do you have trouble getting transportation to medical appointments?: No Do you have trouble paying your heating and electricity bill?: No Do you have trouble taking care of your child, family member or friend?: No Do you have trouble with day-to-day activities such as bathing, preparing meals, shopping, managing finances, etc.?: No Are you currently unemployed and looking for a job?: No Are you interested in more education?: No Please select the resources that you would like help with: None Currently or been in a relationship where the following occur: No concerns reported THRIVE Score: 0 AUDIT C Alcohol Use Questionnaire (AUDIT-C) 1. How often do you have a drink containing alcohol?: Never 3. How often do you have six or more drinks on one occasion?: Never Total Score: 0 RONNIE-7 AMB Questionnaire RONNIE-7 Date RONNIE - 7 assessed: 06/26/24 Feeling nervous, anxious, or on edge: 0 = Not at all Not being able to stop or control worryin = Not at all Worrying too much about different things: 0 = Not at all Trouble relaxin = Not at all Being so restless that it is hard to sit still: 0 = Not at all Becoming easily annoyed or irritable: 0 = Not at all Feeling afraid as if something awful might happen: 0 = Not at all Total RONNIE-7 score (0-4 normal; 5-9 mild; 10-14 moderate; 15-21 severe): 0 Source: Developed by Drs. Abdoulaye White, Mone Robles, Rico Holguin and colleagues, with an educational rasta from [employer]. Physical exam (Primary Care) Vital Signs: Last Vital Signs Pulse 86 06/26/24 10:05 BP 132/68 06/26/24 10:05 Pulse Ox 95 06/26/24 10:05 Oxygen Delivery Method Room Air 06/26/24 10:05 BMI result Body Mass Index 32.6 Tobacco/Smoking Status: Tobacco use Status Tobacco use date assessed 06/26/24 06/26/24 10:08 Patient Tobacco Use Status Former Tobacco user 06/26/24 10:08 Tobacco use type Cigarette 06/26/24 10:08 e-Cigarette/Vaping Use Never Used 06/26/24 10:08 PHQ-9: PHQ-9 Score PHQ-9: Total score 5 06/26/24 10:08 Depression Screening Interpretation: Positive Thrive Assessment: Date of Thrive Assessment Date Thrive assessed 06/26/24 06/26/24 10:08 Currently or been in a relationship where the following occur: No concerns reported Const General: alert; No acute distress Eyes Conjunctivae: conjunctivae normal Resp Auscultation: clear to auscultation bilaterally Cardio Rate: regular rate Rhythm: regular rhythm GI Inspection: Yes normal to inspection Extrem General: Yes normal to inspection and No edema Coding Level of Care Code Est Pt Level 4 (24612) Complex EM visit Add On G2211 Diagnoses COPD (chronic obstructive pulmonary disease) J44.9 Obesity (BMI 30-39.9) E66.9 Fatty liver K76.0 Impaired glucose tolerance R73.02 History of prostate cancer Z85.46 Generalized anxiety disorder F41.1 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 No significant response to bronchodilators noted. Mild decrease in the maximum voluntary ventilation secondary to likely deconditioning. One volumes are within normal limits. The patient does have mild diffusion impairment. Clinical correlation warranted.] Code(s): J44.9 - Chronic obstructive pulmonary disease, unspecified Category: Medical Plan: Patient on albuterol inhaler. Patient is going to be started on the controller inhaler (2) Obesity (BMI 30-39.9): Code(s): E66.9 - Obesity, unspecified Category: Medical Plan: Diet and exercise (3) Fatty liver: Code(s): K76.0 - Fatty (change of) liver, not elsewhere classified Category: Medical Plan: Low-fat diet and exercise (4) Impaired glucose tolerance: Code(s): R73.02 - Impaired glucose tolerance (oral) Category: Medical Plan: Decrease the amount of carbohydrate intake, pasta, bread, rice and potatoes are all sugar and that is aside from all the sweet stuff, remember that fruits are good but they are Sweet also. (5) History of prostate cancer: Comment: 2016-w/radiation, Dr. Varela Code(s): Z85.46 - Personal history of malignant neoplasm of prostate Category: Medical Plan: Patient is followed up by Urology on finasteride and tamsulosin. But on light of recent increase in the PSA patient is being treated with hormone treatment. Discussed about concerns about bone density. (6) Generalized anxiety disorder: Comment: Mariposa Hooker Code(s): F41.1 - Generalized anxiety disorder Category: Medical Plan: Continue with present medication (7) Barretts esophagus: Comment: EGD May 2023 3 years Code(s): K22.70 - 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 Category: Medical Qualifiers: Carter's esophagus type: without dysplasia Qualified Code(s): K22.70 - 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 Plan: Avoid the foods that causes that usually spicy foods, tomato products, juices, coffee, soda and foods that your sensitive to. After eating do not lie down, allow 3-4 hours before in lie down. And keep the head of bed above 30 degrees to avoid the acid from going up. (8) Elevated cholesterol: Code(s): E78.00 - Pure hypercholesterolemia, unspecified Category: Medical Plan: Avoid fried foods, chicken skin, eggs, butter margarine, pastries and meat. Be it pork or beef they have a lot of cholesterol LDL goal of less than 130 and triglyceride of less than 150 patient is on atorvastatin 40 mg once a day (9) Hypertension: Code(s): I10 - Essential (primary) hypertension Category: Medical Qualifiers: Hypertension type: primary hypertension Qualified Code(s): I10 - Essential (primary) hypertension Plan: Continue with blood pressure medication. Decrease salt intake and exercise patient is on amlodipine 5 lisinopril 10. Plan History of Present Illness Health Maintenance - Recent colonoscopy in 2020; EGD performed in May 2023 - Encouragement to increase fluid intake, given high BUN and sodium levels indicating dehydration - Diet discussions focusing on weight management and carbohydrates reduction - Bone density test recommended due to hormonal therapy for prostate cancer Social History - Engages in regular exercise including walking, weightlifting, and biking - Dietary intake involves a low-fat diet, although carbohydrate consumption remains poorly managed - No history of thyroid cancer Review of Systems - Respiratory: Reports increased coughing with some wheezing - Gastrointestinal: Reports previous episodes of black stools attributed to medication - Musculoskeletal: Reports engaging in regular physical activity - Endocrine: Reports no history of thyroid cancer Physical Exam Results - Labs: Mild anemia with hemoglobin at 13.8; dehydration indicated by sodium at 144 and BUN at 29; electrolytes otherwise unremarkable; creatinine normal; Cholesterol LDL at 100; B12 within normal limits - Pulmonary function test: Obstructive ventilatory defect consistent with mild COPD Plan I am adjusting the antihypertensive treatment plan by increasing the amlodipine dose while ceasing lisinopril to prevent cough. For COPD, I will supplement albuterol usage with a controller inhaler. To address prediabetes, the patient should continue dietary modifications. Hormonal therapy for prostate cancer remains unchanged; a bone density scan will evaluate potential changes in bone health. The importance of adequate hydration is stressed, and the patient is encouraged to remain active to help manage weight. Patient was informed and verbally consented to the use of an ambient scribe for clinic note documentation during this visit. Discussion Notes I discussed the patient's chronic conditions, specifically regarding hypertension and COPD management. Alternatives to lisinopril were considered given its side effect of cough, opting instead to adjust the dosage of amlodipine. We reviewed the impact of increased albuterol on COPD, prompting the addition of a controller inhaler. I explained that hydrating sufficiently is crucial to counteract dehydration. Collaterally, I emphasized dietary changes necessary to curb prediabetes, aligning better cholesterol and glucose levels. Calculation of bone density will provide insight into any osteoporosis risk due to proxy hormone therapy, and consistent follow-up is necessary for comprehensive health management. Patient Instructions - Increase amlodipine dose; discontinue lisinopril. - Use albuterol as needed, and regular use of the prescribed controller inhaler. - Maintain low-fat, reduced carbohydrate diet. - Drink 6 to 8 glasses of water daily. - Continue physical activity, including walking, weightlifting, and biking. - Follow up for scheduled bone density scan. - Monitor any changes in symptoms and report concerns promptly. Orders: Orders Comprehensive Met. Panel 3 Months R73.02 - Impaired glucose tolerance (oral) XR DEXA axial skeleton Today M81.0 - Age-related osteoporosis without current pathological fracture, Z85.46 - Personal history of malignant neoplasm of prostate Complete Blood Count Auto Diff 3 Months R73.02 - Impaired glucose tolerance (oral) Hemoglobin A1c 3 Months R73.02 - Impaired glucose tolerance (oral) Medications: New mometasone-formoterol 100-5 mcg/actuation (Dulera) 2 puffs inhalation BID 13 grams 2RF J44.9 - Chronic obstructive pulmonary disease, unspecified amlodipine 10 mg PO DAILY 90 tabs 1RF I10 - Essential (primary) hypertension Discontinued lisinopril Discontinued Reason: Doctor's Order 10 mg PO DAILY 90 tabs 0RF
--- OUTSIDE RECORDS SUMMARY | 2024-06-26 11:14 | XMS_ITS | Clinical Summary ---
Author Organization [facility] it Address [address] [place] [address] Care Team Providers Care Software Quality Specialist Name Role Phone Edna Laird MD Primary Care Provider [phone] Allergies Active Allergy Reactions Criticality Noted Date [...] of colonoscopy PVD (peripheral vascular dis ease) ([facility]) 11/14/2020 DX:PVD (peripheral vascular disease) ([facility]) Family History Medical History Relation Name Comments Alcohol abuse Brother Tuberculosis Father Heart attack Mother from [place] ag e 74, stroke Relation Name Status [...] 08/17/2024 3:45 PM EDT Office Visit Nephrology [facility] [place] [address] [place] [address] Keyshawn Clinton MD [address] [id number] Health Maintenance Due Date Last Done Comments [...] * Annual BMP Blood Test (07/23/2022) Pathologist [facility] Annual BMP Blood Test abstracted Historical Provider HEALTH MAINTENANCE Final Result * Lipid panel (06/28/2020) [facility] LDL/HDL Ratio 3 0 - 4 Triglycerides 76 0 - 150 mg/dL Cholesterol 144 0 - 200 mg/dL HDL 49 >=40 mg/dL LDL Cholesterol 80 0 - 100 mg/dL Blood Venous blood specimen / Unknown Historical Provider LAB BLOOD ORDERABLES Odalys l Result * Hepatitis C Screening (07/11/2013) [facility] Hepatitis C Screening abstracted Historical Provider HEALTH MAINTENANCE Final Result from Last 3 Months or Most Recently Relevant to Health Maintenance Care Teams Software Quality Specialist Relationship Specialty Start Date End Date Edna Laird MD [address] [place] [address] PCP - General Internal Medicine 01/03/21
--- OUTSIDE RECORDS SUMMARY | 2024-06-26 11:14 | XMS_ITS | Patient Health Record ---
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) Active confirmed 282155100 Problem Heartburn (R12) Active confirmed 531542 00 Problem Gastroesophageal reflux disease without esophagitis (K21.9) Active confirmed 486838461 Problem Hiatal hernia (K44.9) Active confirmed 95569042 Problem Gastritis, chronic (K29.50) Active confirmed Chronic gastritis (0046559) Problem Long-term use of aspirin therapy (Z79.82) Active confirmed 545657042 Problem Diarrhea, unspecified type (R19.7) Active confirmed 41966548 Problem Gastroesophageal reflux disease, unspecified whether esophagitis present (K21.9) Active confirmed 253747604 PLAN OF TREATMENT Pending Test Test Name [...] OF [place] [address] [id number] [phone] [id number] ELIO MONTOYA Self - patient is the insured [employer] ATT[employer] CLAIMS [address] [place] [address] [id number] ELIO MONTOYA Self - patient is the insured MEDICAL (GENERAL) HISTORY Medical History History ICD Code 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
--- OUTSIDE RECORDS SUMMARY | 2024-06-26 11:14 | XMS_ITS ---
Author Organization [facility] Address [address] [place] [address] Care Team Providers Care Pattern Generator Operator Name Role Phone Joanne Bejarano MD Primary Care Provider Abdoulaye Cast [phone] ALLERGIES Allergen (clinical drug ingredient) Drug/Non Drug [...] Code Notes Problem Heartburn (R12) Active confirmed 902423 00 VITAL SIGNS Temperature 97.1 degrees Fahrenheit 03/30/20 23 Blood pressure systolic 00 mm Hg 03/30/20 23 Blood pressure diastolic 00 mm Hg 023 Height 71 in 03/30/2023 Weight 230 lbs 03/30/2023 BMI 32.07 kg/m2 03/30/2023 Encounters Encounter Location Date Provider Diagnosis [facility] [address] [place] [address] 03/30/2023 Abdoulaye Ronquillo Gastroesophageal ref lux disease, [...]
--- OUTSIDE RECORDS SUMMARY | 2024-06-26 11:14 | XMS_ITS ---
Author Organization [facility] Address [address] [place] [address] Care Team Providers Care Ror Engineer Name Role Phone Joanne Bejarano MD Primary Care Provider Abdoulaye Cast [phone] Encounters Encounter Location Date Provider Diagnosis [facility] [address] [place] [address] 03/30/2023 Abdoulaye Ronquillo PLAN OF TREATMENT No Information
--- OUTSIDE RECORDS SUMMARY | 2024-06-26 11:14 | XMS_ITS ---
Author Organization [facility] Address [address] [place] [address] Care Team Providers Care Health Information Manager Name Role Phone Joanne Bejarano MD Primary Care Provider Abdoulaye Cast [phone] REASON FOR VISIT gerd, timmons's, heartburn PROBLEMS Problem Type ICD Code Onset Dates Problem Status W/U Status Risk SNOMED Code Notes Problem Gastro-esophagea l reflux disease without esophagitis (K21.9) Active confirmed Gastro-esophage al reflux disease without esophagitis (355480112) Problem Gastritis, chronic (K29.50) Active confirmed Chronic gastritis (6760530) Encounters Encounter Location Date Provider Diagnosis [facility] [place] [facility] [address], [place] [id number] 06/21/2023 Abdoulaye Ronquillo Gastro-esophageal reflux disease without [...]
== END 2024-06-26 10:53 | disposition home or self-care (01) ==
PROVIDERS: PCP Internal Medicine; Visit Provider Internal Medicine
DX: J44.9 Chronic obstructive pulmonary disease, unspecified (principal); E66.9 Obesity, unspecified; Z68.32 Body mass index [BMI] 32.0-32.9, adult; K76.0 Fatty (change of) liver, not elsewhere classified; R73.02 Impaired glucose tolerance (oral); Z85.46 Personal history of malignant neoplasm of prostate; F41.1 Generalized anxiety disorder; K22.70 Barrett's esophagus without dysplasia; E78.00 Pure hypercholesterolemia, unspecified; I10 Essential (primary) hypertension

== ENCOUNTER → 2024-06-26 09:56 | Outpatient (BNVA) | payer MEDICARE, SELFPAY | PROVIDERS: PCP Internal Medicine; Visit Provider Internal Medicine | DX: J44.9 Chronic obstructive pulmonary disease, unspecified (principal); E66.9 Obesity, unspecified; K76.0 Fatty (change of) liver, not elsewhere classified; R73.02 Impaired glucose tolerance (oral); F41.1 Generalized anxiety disorder; K22.70 Barrett's esophagus without dysplasia; E78.00 Pure hypercholesterolemia, unspecified; I10 Essential (primary) hypertension; Z85.46 Personal history of malignant neoplasm of prostate | CPT/HCPCS: 96127; 99212 ==

== ENCOUNTER 2024-07-27 10:24 | Outpatient (REF) | payer MEDICARE, SELFPAY ==
--- NOTE | ~2024-07-27 | MM_ITS ---
EXAMINATION: DXA BONE DENSITY AXIAL HISTORY: Osteoporosis TECHNIQUE: [employer] Dual energy absorptiometry (DEXA) of the lumbar spine, total left hip, and femoral neck was performed. COMPARISON: There are no prior studies for comparison. FINDINGS: The bone mineral density of the lumbar spine is 1.835 with a T-score of 5.1, and a Z-score of 5.0. This is indicative of normal bone mineral density. The bone mineral density of the left total hip is 1.175 with a T-score of 0.5, and a Z-score of 1.0. This is indicative of normal bone mineral density. The bone mineral density of the left femoral neck is 1.013 with a T-score of -0.4, and a Z-score of 0.5. This is indicative of normal bone mineral density. MM/XR DEXA axial skeleton IMPRESSION: Based on bone mineral density, and according to World Health Organization (WHO) criteria, the diagnosis is consistent with normal bone mineral density. All bone density values are in grams per centimeter squared (g/cm2). Statistically, 68% of repeat scans fall within 1 SD (+/- 0.010 g/cm2 for AP spine L1-L4) and 1 SD (+/- 0.012 g/cm2 for femur total) FRAX is a trademark of the [employer]'s [employer] Disease, a World Health Organization (WHO) Collaborating Center. Electronically signed by: Abdoulaye Grayson MD 07/27/2024 01:00 PM EDT
--- OUTSIDE RECORDS SUMMARY | 2024-07-27 11:26 | XMS_ITS | Encounter Summary ---
Author Name [facility] [facility] [place] Address [address] [place] [address] Care Team Providers Care Cleaning Matron Name Role Phone STEPHON UGARTE Primary Care [...] SUPPLEMEN ANTWAN MEDEX 2 Apr 26, 2017 [id number] MARCIAL VILLAELIO PATIENT ANTHEM BCBS OF CT MEDICARE SUPPLEMEN ANTWAN COH RETIR EMENT Apr 26, 2017 [id number] MARCIAL VILLAELIO PATIENT [place] SUPPLEMEN ANTWAN MEDEX 2 Apr 26, 2017 [id number] MARCIAL DAISYELIO PATIENT [place] SUPPLEMEN ANTWAN MEDEX 2 Apr 26, 2017 [id number] MARCIAL VILLAELIO PATIENT [place] SUPPLEMEN ANTWAN MEDEX 2 Apr 26, 2017 [id number] ELIO CORTES PATIENT MEDICARE (WNR) MEDICARE (M) PART A Oct 24, 2012 PART A [id number] [phone] ELIO CORTES PATIENT MEDICARE (WNR) MEDICARE (M) PART B Oct 24, 2012 PART B [id number] ELIO CORTES PATIENT MEDICARE (WNR) MEDICARE (M) PART A Oct 24, 2012 PART A [id number] ELIO CORTES PATIENT MEDICARE (WNR) MEDICARE (M) PART B Oct 24, 2012 PART B [id number] ELIO CORTES PATIENT MEDICARE (WNR) MEDICARE (M) PART A Oct 24, 2012 PART A [id number] ELIO CORTES PATIENT MEDICARE (WNR) MEDICARE (M) PART B Oct 24, 2012 PART B [id number] ELIO CORTES PATIENT Selected Encounter This section includes the information on record at [place] for the Encounter. Date/Time Encounter Type Encounter Description Reason Provider Source Jan 14, 2024 02:30 PM MECHANICAL TRACTION THERAPY PACK CHANGER ICD-10-CM M54.59 Other low back pain ROCHELLE TATE [facility] Encounter Template Text not used by [place] Assessments - Encounter Diagnoses This section includes the primary and secondary diagnoses documented for the Encounter. Date/Time Primary/Secondary Diagnosis Diagnosis Name Provider Source Feb 01, 2024 01:39 PM PRIMARY Other low back pain BEBETOROCHELLE HENNESSY [facility] [place] [place] [facility] Plan of Treatment: Future Appointments (+ 6 months) and Future Tests (+/- 45 days) The Plan of Treatment section includes future care activities for the patient from all [place] treatmentfacilities. This section includes future appointments and future orders which are active, pending or scheduled. Future Appointments This section includes appointments that were scheduled to occur 6 months from the date of the Encounter, up to a maximum of 20 appointments. The data comes from all [place] treatment facilities. Appointment Date/Time Appointment Type Appointme nt Facility Name Jan 18, 2024 11:30 AM [facility] Feb 24, 2024 02:30 PM AMBULATORY - MEDICINE [facility] [place] [facility] Apr 11, 2024 02:00 PM AMBULATORY - MEDICINE [place] [facility] [place] [facility] Jun 06, 2024 11:00 AM [facility] Jun 08, 2024 03:30 PM AMBULATORY - MEDICINE [place] [facility] [place] [facility] Jun 09, 2024 11:15 AM AMBULATORY [facility] MED[facility] Advance Directives: All historical and current Section Date Range: From patient's date of to the date document was created. This section includes ALL of a patient's completed or amended [place] Advance and Rescinded Directives. The entries below indicate that a directive exists for the patient, but an actual copy is not included with this document. The data comes from all [facility]. Date Advance Directives Provider Source Apr 24, [...] ARSENIO INMAN EXP COSIGNER: URGENCY: STATUS: COMPLETED [place] returned call and left voice mail on Acupuncture/Chiropractic line. Please return call to at [phone] /harpal/ ARSENIO GALVEZ Signed: 03/22/2024 09:58 Receipt Acknowledged By: 03/29/2024 09:16 /harpal/ [facility]LE TATE [facility] CHIROPRACTOR --- Original Document --- 03/21/24 TELEPHONE NOTE/CHIROPRACTOR: called to speak to patient and left a RAULITO /harpal/ ROCHELLE TATE [facility] CHIROPRACTOR Signed: 03/21/2024 16:13 [facility] Mar 21, 2024 04:12 PM CHIROPRACTIC TELEPHONE [...] Acupuncture/Chiropractic line. Please return call to at [phone] /harpal/ ARSENIO INMAN [facility] Signed: 03/22/2024 09:58 Receipt Acknowledged By: * AWAITING SIGNATURE * ROCHELLE TATE [facility] Jan 14, 2024 02:36 PM CHIROPRACTIC NOTE: [...] Surgeries: HX prostate cancer Patient [facility] with report that he felt well but he went to the [facility] yesterday and he walked a lot. 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 Ortho surgeon ordered x- rays and recommended PT which he did and received no benefit. Exercise/Activities: Weight lifts at [employer] and he walks regularly. GOALS: walk w/o pain weight lifting w/o pain Vet anticipates Hypnosis at this [facility] for weight loss. Reviewed Radiologist's reports: none [...] his gym. Take breaks from walking at [facility] tomorrow. Follow w Periodontal Assistant ~Patient encouraged to engage in activities such [...] and pain modulation. Plan: Pending visit with Periodontal Assistant. Consult BFA. Visit 5 F/U 4 weekly Seek urgent care as needed. CMT: chiropractic manipulative therapy SMT: Spinal Manipulative Therapy F/D: Flexion Distraction MFR: Myofascial Release S-I: Sacroiliac MFTP: Myofascial Trigger Point NRS: Numeric Rating Scale N/T: Numbness/Tingling PIR: Post isometric relaxation /es/ [facility]LE [facility]ATE [facility] CHIROPRACTOR Signed: 01/14/2024 15:00 ROCHELLE TATE [facility]
--- OUTSIDE RECORDS SUMMARY | 2024-07-27 11:26 | XMS_ITS | Encounter Summary ---
Author Name [facility] [place] Organization [facility] [place] [place] Address [address] [place] [address] Care Team Providers Care Running Rigger Name Role Phone STEPHON UGARTE Primary Care [...] SUPPLEMEN ANTWAN MEDEX 2 Apr 26, 2017 [id number] ELIO CORTES PATIENT ANTHEM BCBS OF CT MEDICARE SUPPLEMEN ANTWAN COH RETIR EMENT Apr 26, 2017 [id number] ELIO CORTES PATIENT [place] SUPPLEMEN ANTWAN MEDEX 2 Apr 26, 2017 [id number] ELIO CORTES PATIENT [place] SUPPLEMEN ANTWAN MEDEX 2 Apr 26, 2017 [id number] ELIO CORTES PATIENT [place] SUPPLEMEN ANTWAN MEDEX 2 Apr 26, 2017 [id number] ELIO CORTES PATIENT MEDICARE (WNR) MEDICARE (M) PART B Oct 24, 2012 PART B [id number] [phone] ELIO CORTES PATIENT MEDICARE (WNR) MEDICARE (M) PART A Oct 24, 2012 PART A [id number] ELIO CORTES PATIENT MEDICARE (WNR) MEDICARE (M) PART A Oct 24, 2012 PART A [id number] ELIO CORTES PATIENT MEDICARE (WNR) MEDICARE (M) PART B Oct 24, 2012 PART B [id number] [phone] ELIO CORTES PATIENT MEDICARE (WNR) MEDICARE (M) PART A Oct 24, 2012 PART A [id number] ELIO CORTES PATIENT MEDICARE (WNR) MEDICARE (M) PART B Oct 24, 2012 PART B [id number] ELIO CORTES PATIENT Selected Encounter This section includes the information on record at [place] for the Encounter. Date/Time Encounter Type Encounter Description Reason Pro vider Source Feb 14, 2024 12:15 PM Outpatient Encounter ADMIN PAT ACTIVTIES (MASNONCT) IHE Encounter Template Text not used by [place] Plan of Treatment: Future Appointments (+ 6 months) and Future Tests (+/- 45 days) The Plan of Treatment section includes future care activities for the patient from all [place] treatmentfacilities. This section includes future appointments and future orders which are active, pending or scheduled. Future Appointments This section includes appointments that were scheduled to occur 6 months from the date of the Encounter, up to a maximum of 20 appointments. The data comes from all [place] treatment facilities. Appointment Date/Time Appointment Type Appointme nt Facility Name Feb 24, 2024 02:30 PM AMBULATORY - MEDICINE [place] [facility] [place] [facility] Apr 11, 2024 02:00 PM AMBULATORY - MEDICINE [place] [facility] [place] [facility] Jun 06, 2024 11:00 AM AMBULATORY - MEDICINE [facility] Jun 08, 2024 03:30 PM AMBULATORY - MEDICINE [facility] Jun 09, 2024 11:15 AM AMBULATORY - MEDICINE [facility] Advance Directives: All historical and current [...] COSIGNER: URGENCY: STATUS: COMPLETED Date: Jan Division: [place] Pt referred by Pharmacy Call Center for medication renewal: Non-controlled/maintena nce medication Medications requested: [id number] OMEPRAZOLE 20MG EC CAP Defer to primary care provider To be mailed . Please review and renew if appropriate. *This note was generated by [facility] Pharmacy Customer Care. If you have any questions or need assistance, do not contact this author. Please refer all questions to your local, on-site pharmacy departments. /harpal/ LYLE RAINEY CPhT [place] Engineer, [place]/Pharmacy Customer Care Signed: 02/14/2024 12:16 Receipt Acknowledged By: 04/25/2024 14:05 /harpal/ STEPHON UGARTE MD PHYSICIAN 02/14/2024 13:26 /harpal/ BRUCE CODY,RN-BC REGISTERED NURSE (RN) LYLE RAINEY [facility]
--- OUTSIDE RECORDS SUMMARY | 2024-07-27 11:27 | XMS_ITS | Encounter Summary ---
Author Name [facility] [place] Organization [facility] [place] Address [address] [place] [address] Care Team Providers Care Vp Publisher Development Name Role Phone STEPHON UGARTE Primary Care [...] SUPPLEMEN ANTWAN MEDEX 2 Apr 26, 2017 [id number] [phone] ELIO CORTES PATIENT ANTHEM BCBS OF CT MEDICARE SUPPLEMEN ANTWAN COH RETIR EMENT Apr 26, 2017 [id number] ELIO CORTES PATIENT [place] SUPPLEMEN ANTWAN MEDEX 2 Apr 26, 2017 [id number] ELIO CORT[place] SUPPLEMEN ANTWAN MEDEX 2 Apr 26, 2017 [id number] [phone] ELIO CORTES PAT[place] SUPPLEMEN ANTWAN MEDEX 2 Apr 26, 2017 [id number] [phone] ELIO CORTES PATIENT MEDICARE (WNR) MEDICARE (M) PART B Oct 24, 2012 PART B [id number] ELIO CORTES PATIENT MEDICARE (WNR) MEDICARE (M) PART A Oct 24, 2012 PART A [id number] [phone] ELIO CORTES PATIENT MEDICARE (WNR) MEDICARE (M) PART A Oct 24, 2012 PART A [id number] [phone] ELIO CORTES PATIENT MEDICARE (WNR) MEDICARE (M) PART B Oct 24, 2012 PART B [id number] ELIO CORTES PATIENT MEDICARE (WNR) MEDICARE (M) PART A Oct 24, 2012 PART A [id number] ELIO CORTES PATIENT MEDICARE (WNR) MEDICARE (M) PART B Oct 24, 2012 PART B [id number] ELIO CORTES PATIENT Selected Encounter This section includes the information on record at [place] for the Encounter. Date/Time Encounter Type Encounter Description Reason Pro vider Source Feb 19, 2024 08:09 PM Outpatient Encounter ADMIN PAT ACTIVTIES (MASNONCT) IHE Encounter Template Text not used by [place] Plan of Treatment: Future Appointments (+ 6 months) and Future Tests (+/- 45 days) The Plan of Treatment section includes future care activities for the patient from all [place] treatmentfacilities. This section includes future appointments and future orders which are active, pending or scheduled. Future Appointments This section includes appointments that were scheduled to occur 6 months from the date of the Encounter, up to a maximum of 20 appointments. The data comes from all [place] treatment facilities. Appointment Date/Time Appointment Type Appointme nt Facility Name Feb 24, 2024 02:30 PM AMBULATORY - MEDICINE [place] [facility] [place] [facility] Apr 11, 2024 02:00 PM AMBULATORY - MEDICINE [place] [facility] [place] [facility] Jun 06, 2024 11:00 AM AMBULATORY - MEDICINE [facility] Jun 08, 2024 03:30 PM AMBULATORY - MEDICINE [facility] Jun 09, 2024 11:15 AM AMBULATORY - MEDICINE [facility] Advance Directives: All historical and current Section Date Range: From patient's date of to the date document was created. This section includes ALL of a patient's completed or amended [place] Advance and Rescinded Directives. The entries below indicate that a directive exists for the patient, but an actual copy is not included with this document. The data comes from all [place] facilities. Date Advance Directives Provider Source Apr [...] DATE: FEB 19, 2024@20:09:36 AUTHOR: ANUJ GASPAR EXP COSIGNER: URGENCY: STATUS: COMPLETED Date: Jan Division: [place] Pt referred by Pharmacy Call Center for medication renewal: Non-controlled/maintenan ce medication Medications requested: [id number] OMEPRAZOLE 20MG EC CAPSULE 2ND REQUEST FOR RENEWAL Defer to primary care provider To be mailed . Please review and renew if appropriate. *This note was generated by [facility] Pharmacy Customer Care. If you have any questions or need assistance, do not contact this author. Please refer all questions to your local, on-site pharmacy departments. /harpal/ ANUJ GASPAR CPhT Animal Herder, [place]/Pharmacy Customer Care Signed: 02/19/2024 20:10 Receipt Acknowledged By: 04/25/2024 14:06 /harpal/ STEPHON UGARTE MD PHYSICIAN 02/20/2024 16:34 /harpal/ BRUCE CODY,RN-BC REGISTERED NURSE (RN) ANUJ GASPAR [facility]
--- OUTSIDE RECORDS SUMMARY | 2024-07-27 11:27 | XMS_ITS | Encounter Summary ---
Author Organization [facility] Address [address] [place] [address] Care Team Providers Care Environmental Technical Officer Name Role Phone Javier Boland MD Primary Care Provider Minna vailable Sahil Roque MD Primary Care Provider [phone] Jim Blue MD Primary Care Provider Unavail able Monique Wan DO Primary Care Pro vider Unavailable Abdoulaye Mott DO Primary Care Provider Minna vailable Edna Laird MD Primary Care Provider [phone] Encounter Details Date Type Department Care Team Description 09/06/2002 [address] [place] [address] [id number] Brenden Irwin PA-C (sore on ear) Social History Tobacco Use Types Packs/Day Years Used Date Smoking Tobacco: Never Assessed Sex Assigned at Date Recorded Not on file Job Start Date Occupation Industry Not on file Not on file Not on file documented as of this encounter Miscellaneous Notes * Telephone Encounter - 09/06/2002 1:39 PM EDTCALL RECEIVED. Contact: pt. cell [phone] TRIAGE CALLS- ARIES SYMPTOMS PT IS PRESENTING:sore on ear/ reocurring/ no appiontment soon enough/ would like to talk to nurse HOW LONG HAS PT HAD THESE SYMPTOMS?:reocurring NAME OF PT'S PCP:Sahil Roque, Provider documented in this encounter Plan of Treatment Not on file documented as of this encounter Visit Diagnoses Not on filedocumented in this encounter Care Teams Environmental Technical Officer Relationship Specialty Start Date End Date Javier Boland MD PCP - General 01/23/10 04/25/14 Sahil Roque MD [address] [place] [address] PCP - General 02/17/00 01/22/10 Jim Blue MD [address] [place] [address] PCP - General Internal Medicine 04/27/14 02/14/15 Monique Wan, [address] [address] PCP - General Internal Medicine 02/15/15 10/14/20 Abdoulaye Mott, [address] [address] PCP - General Internal Medicine 10/15/20 01/02/21 Edna Laird MD [address] [place] [address] PCP - General Internal Medicine 01/03/21 documented as of this encounter
--- OUTSIDE RECORDS SUMMARY | 2024-07-27 11:27 | XMS_ITS | Encounter Summary ---
Author Name [facility] Organization [facility] Address [address] [place] [address] Care Team Providers Care Emt Driver Name Role Phone STEPHON UGARTE Primary Care [...] SUPPLEMEN ANTWAN MEDEX 2 Apr 26, 2017 [id number] ELIO CORTES PATIENT ANTHEM BCBS OF CT MEDICARE SUPPLEMEN ANTWAN COH RETIR EMENT Apr 26, 2017 [id number] ELIO CORT[place] SU[employer]LEMEN ANTW[employer] MEDEX 2 Apr 26, 2017 [id number] ELIO CORTES [place] SU[employer] MEDEX 2 Apr 26, 2017 [id number] ELIO CORTES [place] SU[employer] MEDEX 2 Apr 26, 2017 [id number] ELIO CORTES PATIENT MEDICARE (WNR) MEDICARE (M) PART B Oct 24, 2012 PART B [id number] ELIO CORTES PATIENT MEDICARE (WNR) MEDICARE (M) PART A Oct 24, 2012 PART A [id number] ELIO CORTES PATIENT MEDICARE (WNR) MEDICARE (M) PART A Oct 24, 2012 PART A [id number] ELIO CORTES PATIENT MEDICARE (WNR) MEDICARE (M) PART B Oct 24, 2012 PART B [id number] ELIO CORTES PATIENT MEDICARE (WNR) MEDICARE (M) PART A Oct 24, 2012 PART A [id number] ELIO CORTES PATIENT MEDICARE (WNR) MEDICARE (M) PART B Oct 24, 2012 PART B [id number] ELIO CORTES PATIENT Selected Encounter This section includes the information on record at OR for the Encounter. Date/Time Encounter Type Encounter Description Reason Pro vider Source Jan 31, 2024 04:42 PM Outpatient Encounter ADMIN PAT ACTIVTIES (MASNONCT) IHE Encounter Template Text not used by OR Plan of Treatment: Future Appointments (+ 6 months) and Future Tests (+/- 45 days) The Plan of Treatment section includes future care activities for the patient from all OR treatmentfacilities. This section includes future appointments and future orders which are active, pending or scheduled. Future Appointments This section includes appointments that were scheduled to occur 6 months from the date of the Encounter, up to a maximum of 20 appointments. The data comes from all [place] treatment facilities. Appointment Date/Time Appointment Type Appointme nt Facility Name Feb 24, 2024 02:30 PM AMBULATORY - MEDICINE [place] [facility] [place] [facility] Apr 11, 2024 02:00 PM AMBULATORY - MEDICINE [place] [facility] [place] [facility] Jun 06, 2024 11:00 AM AMBULATORY - MEDICINE [facility] Jun 08, 2024 03:30 PM [facility] Jun 09, 2024 11:15 AM AMBULATORY - MEDICINE [facility] Advance Directives: All historical and current Section Date Range: From patient's date of to the date document was created. This section includes ALL of a patient's completed or amended [place] Advance and Rescinded Directives. The entries below indicate that a directive exists for the patient, but an actual copy is not included with this document. The data comes from all OR facilities. Date Advance Directives Provider Source Apr [...] COSIGNER: URGENCY: STATUS: COMPLETED Date: Jan Division: [facility] referred by Pharmacy Call Center for medication renewal: Non-controlled/maintenance medication Medications requested: [id number] AMLODIPINE BESYLATE 5MG TAB Defer to primary care provider To be mailed . Please review and renew if appropriate. *This note was generated by [facility] [facility] Customer [facility]. If you have any questions or need assistance, do not contact this author. Please refer all questions to your local, on-site pharmacy departments. /harpal/ MARIELLA ANGELES CPhT Dish Technician, [place]/[facility] Customer Care Signed: 01/31/2024 16:44 Receipt Acknowledged By: 04/25/2024 14:06 /es/ STEPHON UGARTE MD PHYSICIAN 02/01/2024 08:29 /harpal/ VALENTINA CODYN,RN-BC REGISTERED NURSE (RN) [facility]
--- OUTSIDE RECORDS SUMMARY | 2024-07-27 11:27 | XMS_ITS | Continuity of Care Document ---
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 Name Role Phone [facility] Unavailable Unavailable Problems Combined list of problems [...] buspar 10 tid [facility] Attention deficit hyperactivity disorder Active Condition Sep 262022 Entered By: TRACIE UGARTE Comment: Adderall 10mg bid [facility] Chronic Kidney Disease Stage 3B ([facility] [id number]) Active Condition [facility] CoManagement Active Condition Apr 16, 2020 Entered By: TRACIE UGARTE Comment: nonVA PCP [facility] COPD - Chronic Obstructive Pulmonary Disease (SCT [id number]) Active Condition [facility] Gastroesophageal reflux [...] Comment: Feb 2022 A1c 5.7 (rising trend) [facility] Prostate cancer Active Condition Apr 16, 2020 Entered By: TRACIE UGARTE Comment: s/p XRTDec 2019 Entered By: TRACIE UGARTE Comment: followed by Dr. Willams 2019 Entered By: TRACIE UGARTE Comment: on finasteride [facility] Diagnosis: ICD-10-CM R05.9 Cough, unspecified Active Diagnosis [facility] Diagnosis: ICD-10-CM Z46.0 Encounter for fit/adjst of spectacles and contact lenses Active Diagnosis [facility] Diagnosis: ICD-10-CM Z96.1 Presence of intraocular lens Active Diagnosis [facility] Diagnosis: ICD-10-CM L60.0 Ingrowing nail Active Diagnosis [facility] Diagnosis: ICD-10-CM R73.03 Prediabetes Active Diagnosis [facility] Diagnosis: ICD-10-CM L60.3 Nail dystrophy Active Diagnosis [facility] Diagnosis: ICD-10-CM M54.59 Other low back pain Active Diagnosis [facility] Diagnosis: ICD-10-CM M79.661 Pain in right lower leg Active Diagnosis [facility] Diagnosis: ICD-10-CM E66.3 Overweight Active Diagnosis [facility] Diagnosis: ICD-10-CM Z00.01 Encounter for general adult medical exam w abnormal findings Active Diagnosis [facility] Diagnosis: ICD-10-CM L57.0 Actinic keratosis Active Diagnosis [facility] ([facility]) Diagnosis: ICD-10-CM F41.9 Anxiety disorder, unspecified Active Diagnosis [facility] Diagnosis: ICD-10-CM F41.1 Generalized anxiety disorder Active Diagnosis [facility] Medications Combined list of outpatient medications [...] BREATH RESPIR ATORY (INHAL ATION) ACTIVE 03/22/2025 [id number] Rama MORALESD A 2023 2 [place] AMLODIPINE BESYLATE 10MG TAB TAKE ONE TABLET BY MOUTH ONCE DAILY FOR BLOOD PRESSURE /HEART, DO NOT TAKE WITH GRAPEFRU IT JUICE ORAL ACTIVE 06/29/2025 [id number] 5 Rama MORALES AVID A 2024 90 [place] AMLODIPINE BESYLATE 5MG TAB TAKE ONE TABLET BY MOUTH ONCE DAILY FOR BLOOD PRESSURE /HEART, DO NOT TAKE WITH GRAPEFRU IT JUICE ORAL DISCONT INUED (EDIT) 02/14/2025 [id number] CEDRIC UGARTE O 2023 90 [place] AMLODIPINE BESYLATE 5MG TAB TAKE ONE TABLET BY MOUTH ONCE DAILY FOR BLOOD PRESSURE /HEART, DO NOT TAKE WITH GRAPEFRU IT JUICE ORAL DISCONT INUED 02/12/2024 [id number] CEDRIC UGARTE O 2022 90 [place] ATORVASTATI N CA 80MG TAB TAKE ONE-HALF TABLET BY MOUTH ONCE DAILY FOR CHOLESTE ROL ORAL ACTIVE 06/10/2025 [id number] 5 Rama MORALESD A 2024 45 [place] ATORVASTATI N CA 80MG TAB TAKE ONE-HALF TABLET BY MOUTH ONCE DAILY FOR CHOLESTE ROL ORAL DISCONT INUED 04/19/2024 [id number] CEDRIC UGARTE O 2022 45 [place] AZITHROMYCI N 250MG TAB TAKE TWO TABLETS BY MOUTH EVERY MORNING FOR 1 DAY, THEN TAKE ONE TABLET EVERY MORNING FOR 4 DAYS ORAL 07/09/2024 [id number] 5 Rama MORALESD A 2024 6 [place] BENZONATATE 100MG CAP TAKE ONE CAPSULE BY MOUTH THREE TIMES DAILY NEEDED FOR COUGH ORAL 07/09/2024 [id number] 5 Rama MORALES AVID A 2024 15 [place] BETAMETHASO NE DIPROPIONAT E 0.05% AUGMENTED CREAM APPLY DIRECTED TOPICALL Y TWICE DAILY FOR 2 WEEKS, STOP FOR 1 WEEK FOR ITCHING/ RASH TOPICA L 11/24/2023 [id number] TORITO, APOLINARI O 2023 50 [place] CARBOXYMETH YLCELLULOSE NA 0.5% SOLN,OPH INSTILL 1 DROP INTO EACH EYE FOUR TIMES DAILY NEEDED FOR DRY EYE OPHTHA LMIC 06/03/2024 [id number] MERHAR,NO AH B 2023 45 [facility] CLONAZEPAM 0.5MG TAB TAKE ONE TABLET BY MOUTH TWICE DAILY NEEDED ORAL ACTIVE TORITO, APOLINARI O 2019 [facility] ESCITALOPRA M OXALATE 10MG TAB TAKE ONE-HALF TABLET BY MOUTH TWICE DAILY FOR MAJOR DEPRESSI VE DISORDER FOR MOOD/DEP RESSION ORAL ACTIVE 12/23/2024 [id number] TORITO, APOLINARI O 2023 90 [place] ESCITALOPRA M OXALATE 10MG TAB TAKE ONE-HALF TABLET BY MOUTH TWICE DAILY FOR MAJOR DEPRESSI VE DISORDER FOR MOOD/DEP RESSION ORAL DISCONT INUED 11/27/2023 [id number] TORITO, APOLINARI O 2022 90 [place] FINASTERIDE 5MG TAB TAKE ONE TABLET BY MOUTH ONCE DAILY NEEDED FOR PROSTATE ORAL ACTIVE 06/10/2025 [id number] 5 Rama MORALES A 2024 90 [place] FINASTERIDE 5MG TAB TAKE ONE TABLET BY MOUTH ONCE DAILY NEEDED FOR PROSTATE ORAL DISCONT INUED 04/12/2024 [id number] TORITO, APOLINARI O 2022 90 [place] FISH OIL CAP,ORAL TAKE BY MOUTH ONCE DAILY ORAL ACTIVE TORITO, APOLINARI O 2019 [facility] FLUTICASONE 250MCG/SALM ETEROL 50MCG INHL,ORAL,D ISKUS,60 INHALE 1 PUFF BY MOUTH TWICE DAILY - RINSE MOUTH AFTER USE RESPIR ATORY (INHAL ATION) ACTIVE 06/29/2025 [id number] Rama MORALES A 2024 3 [place] FLUTICASONE PROPIONATE 50MCG/SPRAY SOLN,NASAL, 16GM INSTILL 2 SPRAYS INTO EACH NOSTRIL ONCE DAILY FOR NASAL IRRITATI ON/INFLA MMATION MAY DECREASE TO 1 SPRAY/NO STRIL WHEN CONTROLL ED NASAL 06/17/2024 [id number] 5 TORITO, APOLINARI O 2023 3 [place] GABAPENTIN 600MG TAB TAKE ONE-HALF TABLET BY MOUTH TWICE DAILY FOR NERVE PAIN ORAL 05/11/2024 [id number] TORITO, APOLINARI O 2023 90 [place] GLUCOSAMINE CAP/TAB TAKE 1000MG BY MOUTH ONCE DAILY ORAL ACTIVE TORITO, APOLINARI O 2019 [facility] GUAIFENESIN 600MG TAB,SA TAKE ONE TABLET BY MOUTH TWICE DAILY FOR COUGH FOLLOW DOSE WITH FULL GLASS OF WATER ORAL 07/09/2024 [id number] 5 Rama MORALES A 2024 14 [place] LISINOPRIL 10MG TAB TAKE ONE TABLET BY MOUTH ONCE DAILY TO CONTROL BLOOD PRESSURE ORAL ACTIVE 10/25/2024 [id number] TORITO, APOLINARI O 2023 90 [place] LOSARTAN 25MG TAB TAKE ONE TABLET BY MOUTH ONCE DAILY FOR BLOOD PRESSURE /HEART STOP LISINOPR IL ORAL DISCONT INUED BY PROVIDE R 06/14/2024 [id number] PO,LORENV ER O 2023 90 [place] LYSINE 500MG TAB TAKE ONE TABLET BY MOUTH ONCE DAILY ORAL ACTIVE TORITO, APOLINARI O 2019 [facility] METFORMIN HCL 500MG 24HR TAB,SA TAKE ONE TABLET BY MOUTH ONCE DAILY FOR 7 DAYS, THEN TAKE TWO TABLETS ONCE DAILY ORAL ACTIVE 09/07/2024 [id number] 5 Rama MORALESD A 2024 173 [place] METFORMIN HCL 500MG 24HR TAB,SA TAKE ONE TABLET BY MOUTH ONCE DAILY FOR 7 DAYS, THEN TAKE TWO TABLETS ONCE DAILY ORAL DISCONT INUED 05/28/2024 [id number] TSALLINGSSisi A 2023 173 [place] NAPROXEN 500MG TAB TAKE ONE TABLET BY MOUTH ONCE DAILY ORAL ACTIVE CEDRIC UGARTE O 2019 [facility] OMEPRAZOLE 20MG CAP,EC TAKE ONE CAPSULE BY MOUTH TWICE DAILY FOR GASTROES OPHAGEAL REFLUX DISEASE ORAL ACTIVE 04/15/2025 [id number] 4 Rama MORALESD A 2023 180 [place] OMEPRAZOLE 20MG CAP,EC TAKE ONE CAPSULE BY MOUTH TWICE DAILY FOR GASTROES OPHAGEAL REFLUX DISEASE ORAL DISCONT INUED 09/23/2024 [id number] CEDRIC UGARTE O 2023 180 [place] OMEPRAZOLE 20MG CAP,EC TAKE ONE CAPSULE BY MOUTH EVERY MORNING 30 MINUTES BEFORE BREAKFAS T ORAL DISCONT INUED (EDIT) 12/18/2023 [id number] CEDRIC UGARTE O 2022 90 [place] PHENTERMINE 7.5MG/TOPIR AMATE 46MG CAP,SA TAKE 1 CAPSULE BY MOUTH EVERY MORNING FOR WEIGHT LOSS MANAGEME NT WITH OR WITHOUT FOOD ORAL 08/14/2023 [id number] CEDRIC UGARTE O 2022 30 [place] PREDNISONE 5MG TAB TAKE EIGHT TABLETS BY MOUTH EVERY MORNING FOR 2 DAYS, THEN TAKE FOUR TABLETS EVERY MORNING FOR 2 DAYS, THEN TAKE TWO TABLETS EVERY MORNING FOR 2 DAYS, THEN TAKE ONE TABLET EVERY MORNING FOR 2 DAYS FOR COPD EXACERBA TION/BRO NCHITIS ORAL 07/09/2024 [id number] 5 Rama MORALESD A 2024 30 [place] Allergies, Adverse Reactions, Alerts Combined list of allergies from Department of Defense and Veterans Affairs facilities. It does not include entries that were removed or entered in error. Substance Category Reaction Severity Reaction type Status Date Reported Comments Source PEANUTS Propensity to adverse reactions to substance (finding) active 0 [facility] PENICILLIN Propensity to adverse reactions to drug (finding) active 0 [place] [facility] [facility] Immunizations Combined list of available immunizations from the Department of Defense and Veterans Affairs facilities. Immunization Series Date Given Administered By Site Reaction Lot Number CVX Code Drug Steel Rod Buster Status Comments Source INFLUENZA, UNSPECIFIED FORMULATION 2021 88 complet ed [facility] TDAP 2020 115 complet ed [place] ZOSTER RECOMBINANT 2 2020 187 complet ed [place] COVID-19 (PFIZER), MRNA, LNP-S, PF, 30 MCG/0.3 ML DOSE 2 2020 208 complet ed PFR; [id number]; 1 [place] [facility] [facility] COVID-19 (PFIZER), MRNA, LNP-S, PF, 30 MCG/0.3 ML DOSE 1 2020 208 complet ed PFR; [id number]; 1 [place] [facility] [place] [facility] ZOSTER RECOMBINANT 1 2020 187 complet ed [place] INFLUENZA, UNSPECIFIED FORMULATION 2019 88 complet ed [facility] ZOSTER LIVE 2011 121 complet ed yes [facility] TDAP 2007 115 complet ed [facility] Results Combined list of recent chemistry, hematology [...] patient management decisions.C epheid FLUVID: HCPs: https://www .[facility].gov/wa anup/586456/ download. Patients: https://www .[facility].gov/wa anup/268788/ download Ordering Provider: AMIE MORALES A Report Released Date/Time: Jun 09, 2024 11:33 AM Reporting Lab: [address] [address] Performing Lab: [address] [address] [place] COVID-19 FLU/RSV DIAGNOST IC PANEL FLU [...] patient management decisions.C epheid FLUVID: HCPs: https://www .[facility].gov/wa anup/090077/ download. Patients: https://www .[facility].gov/wa anup/943490/ download Ordering Provider: AMIE MORALES A Report Released Date/Time: Jun 09, 2024 11:33 AM Reporting Lab: [address] [address] Performing Lab: [address] [address] [place] COVID-19 FLU/RSV DIAGNOST IC PANEL FLU B [...] patient management decisions.C epheid FLUVID: HCPs: https://www .[facility].gov/wa anup/027817/ download. Patients: https://www .fda.gov/wa anup/486611/ download Ordering Provider: AMIE MORALES A Report Released Date/Time: Jun 09, 2024 11:33 AM Reporting Lab: [facility] [address] [facility] [address] Performing Lab: [facility] [address] [address] [facility] COVID-19 FLU/RSV DIAGNOST IC PANEL RSV PCR [...] patient management decisions.C epheid FLUVID: HCPs: https://www .[facility].gov/wa anup/628297/ download. Patients: https://www .[facility].gov/wa anup/797794/ download Ordering Provider: AMIE MORALES Report Released Date/Time: Jun 09, 2024 11:33 AM Reporting Lab: [facility] [address] Performing Lab: [facility] [address] [address] [facility] LIPID PANEL FASTING CHOLESTERO L [MASS/VOLU ME] IN SERUM OR PLASMA 156 mg/dL 10/17 Specimen Type: SERUM No comment entered. Ordering Provider: KIRA UGARTE Report Released Date/Time: Oct 23, 2022 03:11 PM Reporting Lab: [facility] [address] Performing Lab: [facility] [address] [facility] LIPID PANEL FASTING TRIGLYCERI DE [MASS/VOLU ME] IN SERUM OR PLASMA 108 mg/dL 0 - 150 10/17 Specimen Type: SERUM No comment entered. Ordering Provider: KIRA UGARTE Report Released Date/Time: Oct 23, 2022 03:11 PM Reporting Lab: [facility] [facility] [address] [facility] [address] Performing Lab: [facility] [place] [facility] [address] [facility] [address] [facility] LIPID PANEL FASTING CHOLESTERO L IN LDL [MASS/VOLU ME] IN SERUM OR PLASMA BY CALCCORRINA Palm 93 mg/dL 0 - 129 10/17 Specimen Type: SERUM No comment entered. Ordering Provider: KIRA UGARTE Report Released Date/Time: Oct 23, 2022 03:11 PM Reporting Lab: [facility] [place] [facility] [address] [facility] [address] Performing Lab: [facility] [place] [facility] [address] [facility] [address] [place] [facility] [facility] LIPID PANEL FASTING CHOLESTERO L.TOTAL/CH OLESTEROL IN HDL [MASS RATIO] IN SERUM OR PLASMA 3.8 10/17 Specimen Type: SERUM No comment entered. Ordering Provider: KIRA UGARTE Report Released Date/Time: Oct 23, 2022 03:11 PM Reporting Lab: [facility] [place] [facility] [address] [facility] [address] Performing Lab: [facility] [place] [facility] [address] [facility] [address] [facility] [place] [facility] LIPID PANEL FASTING CHOLESTERO L IN HDL [MASS/VOLU ME] IN SERUM OR PLASMA 41 mg/dL 40 - 60 10/17 Specimen Type: SERUM No comment entered. Ordering Provider: KIRA UGARTE Report Released Date/Time: Oct 23, 2022 03:11 PM Reporting Lab: [facility] [place] [facility] [address] [facility] [address] Performing Lab: [facility] [place] [facility] [address] [facility] [address] [facility] LIVER FUNCTION PROTEIN [MASS/VOLU ME] IN SERUM OR PLASMA 6.5 g/dL 6.0 - 8.3 10/17 Specimen Type: SERUM No comment entered. Ordering Provider: KIRA UGARTE Report Released Date/Time: Oct 23, 2022 03:11 PM Reporting Lab: [facility] [address] [facility] [address] Performing Lab: [facility] [address] [facility] [address] [facility] LIVER FUNCTION ALBUMIN [MASS/VOLU ME] IN SERUM OR PLASMA 3.8 g/dL 3.5 - 5.0 10/17 Specimen Type: SERUM No comment entered. Ordering Provider: IKRA UGARTE Report Released Date/Time: Oct 23, 2022 03:11 PM Reporting Lab: [facility] [address] Performing Lab: [facility] [address] [address] [facility] LIVER FUNCTION ALKALINE PHOSPHATAS E [ENZYMATIC ACTIVITY/V OLUME] IN SERUM OR PLASMA 79 U/L 40 - 150 10/17 Specimen Type: SERUM No comment entered. Ordering Provider: KIRA UGARTE Report Released Date/Time: Oct 23, 2022 03:11 PM Reporting Lab: [facility] [place] [place] [address] [address] Performing Lab: [place] [facility] [facility] [facility] [address] [facility] [address] [facility]N [facility] LIVER FUNCTION ASPARTATE AMINOTRANS FERASE [ENZYMATIC ACTIVITY/V OLUME] IN SERUM OR PLASMA 24 U/L 5 - 34 10/17 Specimen Type: SERUM No comment entered. Ordering Provider: KIRA UGARTE Report Released Date/Time: Oct 23, 2022 03:11 PM Reporting Lab: [facility] [address] Performing Lab: [place] [facility] [address] [facility] [address] [facility] LIVER FUNCTION ALANINE AMINOTRANS FERASE [ENZYMATIC ACTIVITY/V OLUME] IN SERUM OR PLASMA 22 U/L 10/17 Specimen Type: SERUM No comment entered. Ordering Provider: KIRA UGARTE Report Released Date/Time: Oct 23, 2022 03:11 PM Reporting Lab: [facility] [address] [facility] [address] Performing Lab: [facility] [address] [facility] [address] [facility] LIVER FUNCTION BILIRUBIN. TOTAL [MASS/VOLU ME] IN SERUM OR PLASMA 0.7 mg/dL 0.2 - 1.2 10/17 Specimen Type: SERUM No comment entered. Ordering Provider: KIRA UGARTE Report Released Date/Time: Oct 23, 2022 03:11 PM Reporting Lab: [facility] [address] [facility] [address] Performing Lab: [facility] [address] [address] [facility] HEMOGLOB IN A1C PANEL HEMOGLOBIN A1C/HEMOGL [...] Oct 23, 2022 03:11 PM Reporting Lab: [facility] [address] [address] Performing Lab: [address] [address] [place] [facility] [place] [facility] TSH THYROTROPI N [UNITS/VOL UME] IN SERUM OR PLASMA 2.10 u[IU]/mL 0.35 - 5.00 10/17 Specimen Type: SERUM No comment entered. Ordering Provider: KIRA UGARTE Report Released Date/Time: Oct 23, 2022 03:11 PM Reporting Lab: [facility] [place] [facility] [address] [facility] [address] Performing Lab: [facility] [place] [facility] [address] [facility] [address] [facility] BASIC METABOLI C PANEL (fasting ) UREA NITROGEN [MASS/VOLU ME] IN SERUM OR PLASMA 23 mg/dL 7 - 25 10/17 Specimen Type: SERUM No comment entered. Ordering Provider: KIRA UGARTE Report Released Date/Time: Oct 23, 2022 03:11 PM Reporting Lab: [facility] [place] [facility] [address] [facility] [address] Performing Lab: [facility] [place] [facility] [address] [facility] [address] [facility] BASIC METABOLI C PANEL (fasting ) GLUCOSE [MASS/VOLU ME] IN SERUM OR PLASMA 94 mg/dL 65 - 100 10/17 Specimen Type: SERUM No comment entered. Ordering Provider: KIRA UGARTE Report Released Date/Time: Oct 23, 2022 03:11 PM Reporting Lab: [facility] [place] [facility] [address] [facility] [address] Performing Lab: [facility] [place] [facility] [address] [facility] [address] [facility] [place] [facility] BASIC METABOLI C PANEL (fasting ) SODIUM [MOLES/VOL UME] IN SERUM OR PLASMA 139 mmol/L 135 - 145 10/17 Specimen Type: SERUM No comment entered. Ordering Provider: KIRA UGARTE Report Released Date/Time: Oct 23, 2022 03:11 PM Reporting Lab: [place] [facility] [facility] [address] [facility] [address] Performing Lab: [place] [facility] [place] [facility] [address] [facility] [address] [place] [facility] [place] [facility] BASIC METABOLI C PANEL (fasting ) POTASSIUM [MOLES/VOL UME] IN SERUM OR PLASMA 4.5 mmol/L 3.5 - 5.0 10/17 Specimen Type: SERUM No comment entered. Ordering Provider: KIRA UGARTE Report Released Date/Time: Oct 23, 2022 03:11 PM Reporting Lab: [place] [facility] [facility] [address] [facility] [address] Performing Lab: [place] [facility] [facility] [address] [facility] [address] [facility] BASIC METABOLI C PANEL (fasting ) CHLORIDE [MOLES/VOL UME] IN SERUM OR PLASMA 107 mmol/L 100 - 110 10/17 Specimen Type: SERUM No comment entered. Ordering Provider: KIRA UGARTE Report Released Date/Time: Oct 23, 2022 03:11 PM Reporting Lab: [facility] [place] [facility] [address] [facility] [address] Performing Lab: [place] [facility] [facility] [address] [facility] [address] [facility] BASIC METABOLI C PANEL (fasting ) CARBON DIOXIDE, TOTAL [MOLES/VOL UME] IN SERUM OR PLASMA 25 meq/L 20 - 30 10/17 Specimen Type: SERUM No comment entered. Ordering Provider: KIRA UGARTE Report Released Date/Time: Oct 23, 2022 03:11 PM Reporting Lab: [place] [facility] [facility] [address] [facility] [address] Performing Lab: [place] [facility] [facility] [facility] [address] [facility] [address] [facility] BASIC METABOLI C PANEL (fasting ) CREATININE [MASS/VOLU ME] IN SERUM OR PLASMA 1.32 mg/dL 0.50 - 1.40 10/17 Specimen Type: SERUM No comment entered. Ordering Provider: KIRA UGARTE Report Released Date/Time: Oct 23, 2022 03:11 PM Reporting Lab: [place] [facility] [place] [address] [address] Performing Lab: [place] [facility] [place] [address] [address] [place] [facility] [place] [facility] BASIC METABOLI C PANEL (fasting ) GLOMERULAR FILTRATION RATE/1.73 SQ M.PREDICTE D [VOLUME RATE/AREA] IN SERUM, PLASMA OR BLOOD BY CREATININE -BASED FORMULA (CKD-EPI 2020) 56 mL/min 60 10/17 L Specimen Type: SERUM No comment entered. Ordering Provider: KIRA UGARTE Report Released Date/Time: Oct 23, 2022 03:11 PM Reporting Lab: [facility] [place] [address] [address] Performing Lab: [facility] [place] [address] [address] [facility] CBC AND DIFF (AUTO) LEUKOCYTES [#/VOLUME] IN BLOOD BY AUTOMATED COUNT 4.92 10*3/uL 4.50 - 11.00 10/17 Specimen Type: BLOOD No comment entered. Ordering Provider: KIRA UGARTE Report Released Date/Time: Oct 23, 2022 03:11 PM Reporting Lab: [facility] [address] [address] Performing Lab: [facility] [place] [address] [phone] [facility] CBC AND DIFF (AUTO) ERYTHROCYT ES [#/VOLUME] IN BLOOD BY AUTOMATED COUNT 5.27 10*6/uL 4.23 - 5.66 10/17 Specimen Type: BLOOD No comment entered. Ordering Provider: KIRA UGARTE Report Released Date/Time: Oct 23, 2022 03:11 PM Reporting Lab: [facility] [place] [address] [address] Performing Lab: [facility] [place] [address] [facility] [phone] [facility] CBC AND DIFF (AUTO) HEMOGLOBIN [MASS/VOLU ME] IN BLOOD 14.2 g/dL 12.8 - 17 10/17 Specimen Type: BLOOD No comment entered. Ordering Provider: KIRA UGARTE Report Released Date/Time: Oct 23, 2022 03:11 PM Reporting Lab: [facility] [address] [facility] [phone] Performing Lab: [facility] [address] [facility] [address] [facility] CBC AND DIFF (AUTO) HEMATOCRIT [VOLUME FRACTION] OF BLOOD BY AUTOMATED COUNT 43.4 39.2 - 50.4 10/17 Specimen Type: BLOOD No comment entered. Ordering Provider: KIRA UGARTE Report Released Date/Time: Oct 23, 2022 03:11 PM Reporting Lab: [facility] [address] [facility] [address] Performing Lab: [facility] [address] [facility] [address] [facility] CBC AND DIFF (AUTO) MCV [ENTITIC VOLUME] BY AUTOMATED COUNT 82.4 fL 82 - 99 10/17 Specimen Type: BLOOD No comment entered. Ordering Provider: KIRA UGARTE Report Released Date/Time: Oct 23, 2022 03:11 PM Reporting Lab: [facility] [address] [facility] [address] Performing Lab: [facility] [address] [facility] [address] [facility] CBC AND DIFF (AUTO) MCHC [MASS/VOLU ME] BY AUTOMATED COUNT 32.7 g/dL 30.8 - 35.1 10/17 Specimen Type: BLOOD No comment entered. Ordering Provider: KIRA UGARTE Report Released Date/Time: Oct 23, 2022 03:11 PM Reporting Lab: [facility] [address] [facility] [address] Performing Lab: [facility] [address] [facility] [address] [facility] CBC AND DIFF (AUTO) PLATELETS [#/VOLUME] IN BLOOD BY AUTOMATED COUNT 200 10*3/uL 140 - 360 10/17 Specimen Type: BLOOD No comment entered. Ordering Provider: KIRA UGATRE Report Released Date/Time: Oct 23, 2022 03:11 PM Reporting Lab: [facility] [address] [facility] [address] Performing Lab: [place] [facility] [place] [facility] [address] [facility] [address] [facility] CBC AND DIFF (AUTO) ERYTHROCYT E DISTRIBUTI ON WIDTH [RATIO] BY AUTOMATED COUNT 13.8 12.0 - 16.0 10/17 Specimen Type: BLOOD No comment entered. Ordering Provider: KIRA UGARTE Report Released Date/Time: Oct 23, 2022 03:11 PM Reporting Lab: [facility] [facility] [address] [facility] [address] Performing Lab: [facility] [address] [facility] [address] [place] [facility] CBC AND DIFF (AUTO) MONOCYTES [#/VOLUME] IN BLOOD BY AUTOMATED COUNT 0.48 10*3/uL 0.30 - 1.10 10/17 Specimen Type: BLOOD No comment entered. Ordering Provider: KIRA UGARTE Report Released Date/Time: Oct 23, 2022 03:11 PM Reporting Lab: [facility] [address] [facility] [address] Performing Lab: [facility] [facility] [address] [facility] [address] [facility] CBC AND DIFF (AUTO) MCH [ENTITIC MASS] BY AUTOMATED COUNT 26.9 pg 26.2 - 32.6 10/17 Specimen Type: BLOOD No comment entered. Ordering Provider: KIRA UGARTE Report Released Date/Time: Oct 23, 2022 03:11 PM Reporting Lab: [facility] [address] [facility] [address] Performing Lab: [facility] [address] [facility] [address] [facility] CBC AND DIFF (AUTO) NEUTROPHIL S/100 LEUKOCYTES IN BLOOD BY AUTOMATED COUNT 63.8 43.7 - 75.8 10/17 Specimen Type: BLOOD No comment entered. Ordering Provider: KIRA UGARTE Report Released Date/Time: Oct 23, 2022 03:11 PM Reporting Lab: [facility] [address] [facility] [address] Performing Lab: [facility] [address] [facility] [address] [facility] CBC AND DIFF (AUTO) LYMPHOCYTE S/100 LEUKOCYTES IN BLOOD BY AUTOMATED COUNT 22.2 14.0 - 42.3 10/17 Specimen Type: BLOOD No comment entered. Ordering Provider: KIRA UGARTE Report Released Date/Time: Oct 23, 2022 03:11 PM Reporting Lab: [facility] [address] [facility] [address] Performing Lab: [facility] [address] [facility] [address] [facility] CBC AND DIFF (AUTO) MONOCYTES/ 100 LEUKOCYTES IN BLOOD BY AUTOMATED COUNT 9.8 5.1 - 13.7 10/17 Specimen Type: BLOOD No comment entered. Ordering Provider: KIRA UGARTE Report Released Date/Time: Oct 23, 2022 03:11 PM Reporting Lab: [facility] [address] [facility] [address] Performing Lab: [facility] [address] [facility] [address] [facility] CBC AND DIFF (AUTO) EOSINOPHIL S/100 LEUKOCYTES IN BLOOD BY AUTOMATED COUNT 2.8 0.4 - 6.8 10/17 Specimen Type: BLOOD No comment entered. Ordering Provider: KIRA UGARTE Report Released Date/Time: Oct 23, 2022 03:11 PM Reporting Lab: [facility] [address] [address] Performing Lab: [facility] [address] [address] [facility] CBC AND DIFF (AUTO) BASOPHILS/ 100 LEUKOCYTES IN BLOOD BY AUTOMATED COUNT 1.0 0.1 - 2.0 10/17 Specimen Type: BLOOD No comment entered. Ordering Provider: KIRA UGARTE Report Released Date/Time: Oct 23, 2022 03:11 PM Reporting Lab: [facility] [address] [address] Performing Lab: [facility] [address] [address] [facility] CBC AND DIFF (AUTO) NEUTROPHIL S [#/VOLUME] IN BLOOD BY AUTOMATED COUNT 3.14 10*3/uL 2.20 - 7.60 10/17 Specimen Type: BLOOD No comment entered. Ordering Provider: KIRA UGARTE Report Released Date/Time: Oct 23, 2022 03:11 PM Reporting Lab: [facility] [address] [address] Performing Lab: [facility] [address] [address] [place] [facility] CBC AND DIFF (AUTO) LYMPHOCYTE S [#/VOLUME] IN BLOOD BY AUTOMATED COUNT 1.09 10*3/uL 1.00 - 3.20 10/17 Specimen Type: BLOOD No comment entered. Ordering Provider: KIRA UGARTE Report Released Date/Time: Oct 23, 2022 03:11 PM Reporting Lab: [facility] [address] [address] Performing Lab: [facility] [address] [facility] [address] [facility] CBC AND DIFF (AUTO) EOSINOPHIL S [#/VOLUME] IN BLOOD BY AUTOMATED COUNT 0.14 10*3/uL 0.03 - 0.44 10/17 Specimen Type: BLOOD No comment entered. Ordering Provider: KIRA UGARTE Report Released Date/Time: Oct 23, 2022 03:11 PM Reporting Lab: [facility] [address] [facility] [address] Performing Lab: [facility] [address] [facility] [address] [facility] CBC AND DIFF (AUTO) BASOPHILS [#/VOLUME] IN BLOOD BY AUTOMATED COUNT 0.05 10*3/uL 0.01 - 0.13 10/17 Specimen Type: BLOOD No comment entered. Ordering Provider: KIRA UGARTE Report Released Date/Time: Oct 23, 2022 03:11 PM Reporting Lab: [facility] [address] [facility] [address] Performing Lab: [facility] [facility] [address] [facility] [address] [place] [facility] CBC AND DIFF (AUTO) IMMATURE GRANULOCYT ES/100 LEUKOCYTES IN BLOOD BY AUTOMATED COUNT 0.4 0.0 - 0.7 10/17 Specimen Type: BLOOD No comment entered. Ordering Provider: KIRA UGARTE Report Released Date/Time: Oct 23, 2022 03:11 PM Reporting Lab: [facility] [facility] [address] [facility] [address] Performing Lab: [facility] [facility] [address] [facility] [address] [facility] CBC AND DIFF (AUTO) IMMATURE GRANULOCYT ES [#/VOLUME] IN BLOOD 0.02 10*3/uL 0.00 - 0.06 10/17 Specimen Type: BLOOD No comment entered. Ordering Provider: KIRA UGARTE Report Released Date/Time: Oct 23, 2022 03:11 PM Reporting Lab: [facility] [place] [facility] [address] [facility] [address] Performing Lab: [facility] [place] [facility] [address] [facility] [address] [facility] CBC AND DIFF (AUTO) NRBC % 0.0 0.0 - 0.0 10/17 Specimen Type: BLOOD No comment entered. Ordering Provider: KIRA UGARTE Report Released Date/Time: Oct 23, 2022 03:11 PM Reporting Lab: [facility] [place] [address] [address] Performing Lab: [facility] [place] [address] [address] [facility] CBC AND DIFF (AUTO) NRBC, ABS 0.00 10*3/uL 0.00 - 0.00 10/17 Specimen Type: BLOOD No comment entered. Ordering Provider: KIRA UGARTE Report Released Date/Time: Oct 23, 2022 03:11 PM Reporting Lab: [facility] [place] [address] [address] Performing Lab: [facility] [place] [address] [address] [facility] BASIC METABOLI C PANEL (fasting ) UREA NITROGEN [MASS/VOLU ME] IN SERUM OR PLASMA 21 mg/dL 7 - 25 10/13 Specimen Type: SERUM No comment entered. Ordering Provider: KIRA UGARTE Report Released Date/Time: Mar 23, 2022 02:08 PM Reporting Lab: [facility] [place] [address] [address] Performing Lab: [facility] [place] [address] [address] [place] [facility] BASIC METABOLI C PANEL (fasting ) GLUCOSE [MASS/VOLU ME] IN SERUM OR PLASMA 99 mg/dL 65 - 100 10/13 Specimen Type: SERUM No comment entered. Ordering Provider: KIRA UGARTE Report Released Date/Time: Mar 23, 2022 02:08 PM Reporting Lab: [facility] [place] [facility] [address] [facility] [address] Performing Lab: [place] [facility] [address] [facility] [address] [facility] BASIC METABOLI C PANEL (fasting ) SODIUM [MOLES/VOL UME] IN SERUM OR PLASMA 140 mmol/L 135 - 145 10/13 Specimen Type: SERUM No comment entered. Ordering Provider: KIRA UGARTE Report Released Date/Time: Mar 23, 2022 02:08 PM Reporting Lab: [place] [facility] [address] [facility] [address] Performing Lab: [place] [facility] [address] [facility] [address] [facility] BASIC METABOLI C PANEL (fasting ) POTASSIUM [MOLES/VOL UME] IN SERUM OR PLASMA 4.3 mmol/L 3.5 - 5.0 10/13 Specimen Type: SERUM No comment entered. Ordering Provider: KIRA UGARTE Report Released Date/Time: Mar 23, 2022 02:08 PM Reporting Lab: [place] [facility] [address] [address] Performing Lab: [place] [facility] [address] [facility] [address] [place] [facility] [facility] BASIC METABOLI C PANEL (fasting ) CHLORIDE [MOLES/VOL UME] IN SERUM OR PLASMA 108 mmol/L 100 - 110 10/13 Specimen Type: SERUM No comment entered. Ordering Provider: KIRA UGARTE Report Released Date/Time: Mar 23, 2022 02:08 PM Reporting Lab: [place] [facility] [address] [facility] [address] Performing Lab: [place] [facility] [facility] [address] [address] [facility] BASIC METABOLI C PANEL (fasting ) CARBON DIOXIDE, TOTAL [MOLES/VOL UME] IN SERUM OR PLASMA 23 meq/L 20 - 30 10/13 Specimen Type: SERUM No comment entered. Ordering Provider: KIRA UGARTE Report Released Date/Time: Mar 23, 2022 02:08 PM Reporting Lab: [facility] [address] [facility] [address] Performing Lab: [facility] [address] [facility] [address] [facility] BASIC METABOLI C PANEL (fasting ) CREATININE [MASS/VOLU ME] IN SERUM OR PLASMA 1.31 mg/dL 0.50 - 1.40 10/13 Specimen Type: SERUM No comment entered. Ordering Provider: KIRA UGARTE Report Released Date/Time: Mar 23, 2022 02:08 PM Reporting Lab: [facility] [address] [facility] [address] Performing Lab: [facility] [address] [facility] [address] [facility] BASIC METABOLI C PANEL (fasting ) GLOMERULAR FILTRATION RATE/1.73 SQ M.PREDICTE D [VOLUME RATE/AREA] IN SERUM, PLASMA OR BLOOD BY CREATININE -BASED FORMULA (CKD-EPI) 57 mL/min 10/13 L Specimen Type: SERUM No comment entered. Ordering Provider: KIRA UGARTE Report Released Date/Time: Mar 23, 2022 02:08 PM Reporting Lab: [facility] [address] [facility] [address] Performing Lab: [facility] [address] [address] [facility] LIPID PANEL FASTING CHOLESTERO L [MASS/VOLU ME] IN SERUM OR PLASMA 167 mg/dL 10/13 Specimen Type: SERUM No comment entered. Ordering Provider: KIRA UGARTE Report Released Date/Time: Mar 23, 2022 02:08 PM Reporting Lab: [facility] [place] [facility] [address] [facility] [address] Performing Lab: [facility] [place] [facility] [address] [facility] [address] [facility] LIPID PANEL FASTING TRIGLYCERI DE [MASS/VOLU ME] IN SERUM OR PLASMA 123 mg/dL 0 - 150 10/13 Specimen Type: SERUM No comment entered. Ordering Provider: KIRA UGARTE Report Released Date/Time: Mar 23, 2022 02:08 PM Reporting Lab: [facility] [place] [facility] [address] [facility] [address] Performing Lab: [facility] [place] [facility] [address] [facility] [address] [facility] LIPID PANEL FASTING CHOLESTERO L IN LDL [MASS/VOLU ME] IN SERUM OR PLASMA BY CALCCORRINA N 94 mg/dL 0 - 129 10/13 Specimen Type: SERUM No comment entered. Ordering Provider: KIRA UGARTE Report Released Date/Time: Mar 23, 2022 02:08 PM Reporting Lab: [facility] [place] [facility] [address] [facility] [address] Performing Lab: [facility] [place] [facility] [address] [facility] [address] [facility] LIPID PANEL FASTING CHOLESTERO L.TOTAL/CH OLESTEROL IN HDL [MASS RATIO] IN SERUM OR PLASMA 3.5 10/13 Specimen Type: SERUM No comment entered. Ordering Provider: KIRA UGARTE Report Released Date/Time: Mar 23, 2022 02:08 PM Reporting Lab: [facility] [place] [facility] [address] [facility] [address] Performing Lab: [facility] [place] [facility] [address] [facility] [address] [facility] LIPID PANEL FASTING CHOLESTERO L IN HDL [MASS/VOLU ME] IN SERUM OR PLASMA 48 mg/dL 40 - 60 10/13 Specimen Type: SERUM No comment entered. Ordering Provider: KIRA UGARTE Report Released Date/Time: Mar 23, 2022 02:08 PM Reporting Lab: [facility] [address] [facility] [address] Performing Lab: [facility] [address] [facility] [address] [facility] HEMOGLOB IN A1C PANEL HEMOGLOBIN A1C/HEMOGL OBIN.TOTAL IN BLOOD BY HPLC 5.6 4.0 - 5.6 10/13 Specimen Type: BLOOD Comment: Values obtained from [...] Mar 23, 2022 02:08 PM Reporting Lab: [facility] [address] [facility] [address] Performing Lab: [facility] [address] [facility] [address] [facility] Vital Signs Combined list of inpatient and outpatient Vital Signs from Department of Defense and Veterans Affairs, ranging from 12 months to all on record, depending upon the facility. Vital Sign Value Date Comments Source SYSTOLIC BLOOD PRESSURE 144 06/09/19 25 11:36:04 [facility] DIASTOLIC BLOOD PRESSURE 025 11:36:04 [facility] PULSE OXIMETRY 98 06/09/2024 11:36:04 [facility] PAIN 0 06/09/2024 11:36:04 [facility] TEMPERATURE 97.2 06/09/2024 11:36:04 [facility] PULSE 89 06/09/2024 11:36:04 [facility] RESPIRATION 19 06/09/2024 11:36:04 [facility] SYSTOLIC BLOOD PRESSURE 144 12/28/19 24 15:16:02 [facility] DIASTOLIC BLOOD PRESSURE 77 024 15:16:02 [facility] PULSE OXIMETRY 94 12/28/2023 15:16:02 [facility] PAIN 2 12/28/2023 15:16:02 [facility] TEMPERATURE 98.3 12/28/2023 15:16:02 [facility] PULSE 80 12/28/2023 15:16:02 [facility] RESPIRATION 20 12/28/2023 15:16:02 [facility] SYSTOLIC BLOOD PRESSURE 157 10/25/19 08:43:36 [facility] DIASTOLIC [...] to the last 18 months, not all [place] inpatient encounters are included; 2) Encounters from the Department of [facility] facilities going backup to 280 months. Location Location Details Encounter Type Encounter Number Reason For Visit Attending Provider ADM Date DC Date Status Disposition Source [facility] Encounter [id number] 01/26 [facility] Encounter [id number] 01/27 [facility] [place] PT 45 MINUTES [id number] Diagnos is: ICD-10- CM F41.9 Anxiety disorde r, unspeci fied VINOCOUR,J ILL M 01/29 [place] [facility] Outpatient Encounter [id number] 02/03 [facility] [place] [facility] [facility] PT 30 MINUTES [id number] Diagnos is: ICD-10- CM F41.1 General ized anxiety disorde r VERNJ ILL M 02/05 [place] [facility] Outpatient Encounter [id number] 02/05 [facility] Outpatient Encounter [id number] 02/11 [facility] [place] PT 30 MINUTES [id number] Diagnos is: ICD-10- CM F41.9 Anxiety disorde r, unspeci fied VINOCOUR,J ILL M 02/19 [facility] [place] W PT 30 MINUTES [id number] Diagnos is: ICD-10- CM F41.9 Anxiety disorde r, unspeci fied VINOCOUR,J ILL M 02/[address] [facility] [place] W PT 30 MINUTES [id number] Diagnos is: ICD-10- CM F41.9 Anxiety disorde r, unspeci fied VINOCOUR,J ILL M 03/12 [place] W PT 30 MINUTES [id number] Diagnos is: ICD-10- CM F41.9 Anxiety disorde r, unspeci fied VINOCOUR,J ILL M 03/19 [place] [facility] En[facility] [id number] 03/30 [facility] En[facility] [id number] 04/01 [facility] MTMS BY PHARM ADDL 15 MIN [id number] Diagnos is: ICD-10- CM R73.03 Prediab etIMANI Kelly A 04/02 [place] [facility] Out[facility] Encounter [id number] 04/02 [facility] Encounter [id number] 04/02 [facility] Encounter [id number] 04/05 [facility] Encounter [id number] 04/12 [facility] Out[facility] Encounter [id number] 04/13 [facility]P EST LOW 20-29 MIN [id number] Diagnos is: ICD-10- CM L60.0 Ingrowi HANY Mario 04/13 [place] [facility] Out[facility] Encounter [id number] 04/13 [facility] Encounter [id number] 04/16 [facility] Encounter [id number] 04/16 [facility] Encounter [id number] 04/17 [facility] (631GE) QNHP OL DIG ASSMT&MGMT 5-10 [id number] Diagnos is: ICD-10- CM L57.0 Actinic keratos is BROOKE W[facility]ACE 04/22 [facility] (631GE) [facility] Encounter [id number] HANY MARCH 04/27 [facility] Encounter [id number] 04/28 [facility] Encounter [id number] 04/28 [facility]counter [id number] 04/29 [facility] [id number] 04/29 [facility] [id number] 05/07 [facility] [id number] 01/16 /2024 [facility] En[facility] [id number] 06/03 [facility] COMPRE OPH EXAM EST PT 1/> [id number] Diagnos is: ICD-10- CM Z96.1 Presenc e of intraoc ular lens LYSSA COLLINS H B 06/03 [facility] FIT SPECTACLES BIFOCAL [id number] Diagnos is: ICD-10- CM Z46.0 Encount er for fit/adj st of spectac les and contact lenses LYSSA COLLINS H B 06/04 [facility] [place] [facility] O/P EST LOW 20 MIN [id number] Diagnos is: ICD-10- CM L60.3 Nail dystrop hy HANY MARCH ES F 06/07 [place] O/P EST LOW 20 MIN [id number] Diagnos is: ICD-10- CM R73.03 Prediab etes HANY MARCH ES F 08/23 [place] [facility] Out[facility] Encounter [id number] 09/16 [facility] En[facility] [id number] 09/16 [facility] Encounter [id number] 10/14 [facility] [place] [facility] O/P EST MOD 30 MIN [id number] Diagnos is: ICD-10- CM Z00.01 Encount er for general adult medical exam w abnorma l finding s Cesar UGARTE 10/[facility] [place] [facility] Encounter [id number] 10/31 [facility] OFFICE O/P NEW MOD 45 MIN [id number] Diagnos is: ICD-10- CM M54.59 Other low back pain ALETA TATE RA 11/22 [facility] En[facility] [id number] [facility] SELF-MGMT EDUC & TRAIN 1 [place] [id number] Diagnos is: ICD-10- CM E66.3 Overwei Alfred Gomez 12/05 [facility] En[facility] [id number] 12/13 [facility] Encounter [id number] 1.12/13 [facility]patient Encounter [id number] [facility] Encounter [id number] [facility] Out[facility] Encounter [id number] 1.12/22 [facility] Out[facility] Encounter [id number] 12/23 [facility] MANUAL THERAPY 1/> REGIONS [id number] Diagnos is: ICD-10- CM M54.59 Other low back pain ALETA TATE RA 12/23 [facility] [place] OFF/OP EST AUGUST X REQ PHY/QHP [id number] Diagnos is: ICD-10- CM M79.661 Pain in right lower leg PAUL SANTILLAN K 12/27 [place] [facility] Outpatient Encounter [id number] 12/27 [facility] MECHANICAL TRACTION THERAPY [id number] Diagnos is: ICD-10- CM M54.59 Other low back pain ALETA TATE RA 12/30 [facility] Outpatient Encounter [id number] 12/30 [facility] MECHANICAL TRACTION THERAPY [id number] 1. Diagnos is: ICD-10- CM M54.59 Other low back pain ALETA TATE RA 01/05 [facility] MECHANICAL TRACTION THERAPY [id number] Diagnos is: ICD-10- CM M54.59 Other low back pain ALETA TATE RA 01/13 [facility] [place] O/P EST LOW 20 MIN [id number] Diagnos is: ICD-10- CM L60.3 Nail dystrop hy ROSS,CHARL ES F 01/17 [place] [facility] Encounter [id number] 1.01/17 [facility] Out[facility] Encounter [id number] 01/17 [facility] Out[facility] Encounter [id number] 01/20 [facility] Out[facility] Encounter [id number] 01/30 [facility] Out[facility] Encounter [id number] 02/03 [facility] Out[facility] Encounter [id number] 02/09 [facility] Out[facility] Encounter [id number] [facility] Out[facility] Encounter [id number] 02/13 [facility] Outpatient Encounter [id number] 02/13 [facility] Out[facility] Encounter [id number] 02/14 [facility] Outpatient Encounter [id number] 02/17 [facility] Outpatient Encounter [id number] [facility] LD MTMS BY PHARM ADDL 15 MIN [id number] Diagnos is: ICD-10- CM R73.03 Prediab etIMANI Kelly A 02/23 [place] [facility] Outpatient Encounter [id number] 1.03/16 [facility] Out[facility] Encounter [id number] 1.03/20 [facility] Out[facility] Encounter [id number] 1.03/21 [facility] Out[facility] Encounter [id number] 1.04/10 [facility] Out[facility] Encounter [id number] 1.04/11 [facility] Out[facility] Encounter [id number] 04/14 [facility] Outpatient Encounter [id number] 04/14 [facility] Out[facility] Encounter [id number] 04/27 [facility] [place] O/P EST LOW 20 MIN [id number] Diagnos is: ICD-10- CM L60.0 Ingrowi HANY Mario 06/06 [place] [facility] Outpatient Encounter [id number] [facility] COMPRE [place]PH [place]AM [place] 1/ [id number] Diagnos is: ICD-10- CM Z96.1 Presenc e of intraoc ular lens MERHAR,LYSSA H B 06/08 [facility] FIT SPECTACLES BIFOCAL [id number] Diagnos is: ICD-10- CM Z46.0 Encount er for fit/adj st of spectac les and contact lenses DENNIS,LYSSA H B 06/08 [facility] [place] OFF/OP EST AUGUST X REQ PHY/QHP [id number] Diagnos is: ICD-10- CM R05.9 Cough, unspeci fied JACQUE,ER IC K 06/09 [facility] [place] [facility] Outpatient Encounter [id number] [facility] Outpatient Encounter [id number] [facility] Outpatient Encounter [id number] [facility] Social History Combined list of available smoking, tobacco, and other social history from Department of Defense and Veterans Affairs facilities. Social History Type Response Date Comment Sourc e Tobacco smoking status [facility]-TOBACCO NEVER USED 10/25/19 [facility] History of tobacco use [place] NEVER USED 03/23/2022 [facility] History of tobacco use [place] NEVER USED 09/12/2020 [facility] History of tobacco use VA-TOBACCO FORMER USER 05/31/2019 [facility] Plan of Care List of future care activities from Department of [facility] facilities. Additional future care activities may be listed in the Assessment and Plan section. Date/Time Care Activity Care Activity Detail Facili ty 10/10/2024 AMBULATORY - MEDICINE AMB[facility]ATORY - [facility]ICI [place] [facility] Advance Directives List of completed, amended, or rescinded Advance Directives on record at Department of [facility] facilities. An actual copy of the Directive is not included. Date Advance Directive Provider Source 04/24/2020 ADVANCE DIRECTIVE DWAINE DENT
--- OUTSIDE RECORDS SUMMARY | 2024-07-27 11:27 | XMS_ITS | Encounter Summary ---
Author Name [place] Address [address] [place] [address] Care Team Providers Care Municipal Court Magistrate Name Role Phone STEPHON UGARTE Primary Care [...] SUPPLEMEN ANTWAN MEDEX 2 Apr 26, 2017 [id number] ELIO CORTES PATIENT ANTHEM BCBS OF [place] MEDICARE SUPPLEMEN ANTWAN COH RETIR EMENT Apr 26, 2017 [id number] ELIO CORT[place] SUPPLEMEN ANTWAN MEDEX 2 Apr 26, 2017 [id number] ELIO CORT[place] SUPPLEMEN ANTWAN MEDEX 2 Apr 26, 2017 [id number] ELIO [place]ORT[place] SUPPLEMEN ANTWAN MEDEX 2 Apr 26, 2017 [id number] ELIO CORTES PATIENT MEDICARE (WNR) MEDICARE (M) PART A Oct 24, 2012 PART A [id number] ELIO CORTES PATIENT MEDICARE (WNR) MEDICARE (M) PART B Oct 24, 2012 PART B [id number] ELIO CORTES PATIENT MEDICARE (WNR) MEDICARE (M) PART A Oct 24, 2012 PART A [id number] [phone] ELIO CORTES PATIENT MEDICARE (WNR) MEDICARE (M) PART B Oct 24, 2012 PART B [id number] ELIO CORTES PATIENT MEDICARE (WNR) MEDICARE (M) PART A Oct 24, 2012 PART A [id number] ELIO CORTES PATIENT MEDICARE (WNR) MEDICARE (M) PART B Oct 24, 2012 PART B [id number] ELIO CORTES PATIENT Selected Encounter This [...] 24, 2023 02:00 PM [place]ORY [place] [facility] [place] [facility] Dec 28, 2023 02:45 PM AMBULATORY - MEDICINE [facility] Dec 31, 2023 02:00 PM AMBULATORY - MEDICINE [facility] [place] [facility] Jan 06, 2024 03:00 PM AMBULATORY - [facility]ICINE [facility] [place] [facility] Jan 14, 2024 02:30 PM AMBULATORY - MEDICINE [facility] [place] [facility] Jan 18, 2024 11:30 AM AMBULATORY - [place]IC[place] Feb 24, 2024 02:30 PM AMBULATORY - MEDICINE [facility] [place] [facility] Apr 11, 2024 02:00 PM AMBULATORY - MEDICINE [facility] [place] [facility] Jun 06, 2024 11:00 AM [facility] Jun 08, 2024 03:30 PM [place] [facility] [place] [facility] Jun 09, 2024 11:15 AM [facility]ORY - MEDICINE [facility] Advance Directives: All historical and current [...] Provider Source Apr 24, 2020 ADVANCE DIRECTIVE FILIPEDWAINE ARRIAZA Encounter Notes: All associated encounter notes This section contains the clinical notes associated to the Encounter. Date/Time Encounter Note(s) Provider Source Dec 14, 2023 06:41 PM PHARMACY NOTE: LOCAL TITLE: PHARMACY CUSTOMER CARE MEDICATION RENEWAL STANDARD TITLE: PHARMACY NOTE DATE OF NOTE: DEC 14, 2023@18:41 ENTRY DATE: DEC 14, 2023@18:41:07 AUTHOR: MILO ORTIZ COSIGNER: URGENCY: STATUS: COMPLETED Date: Nov Division: [place] Pt referred by Pharmacy Call Center for medication renewal: Non-controlled/maintena nce medication Medications requested: [id number] ESCITALOPRAM OXALATE 10MG TAB Defer to primary care provider To be mailed . Please review and renew if appropriate. *This note was generated by [facility]/ID Pharmacy Customer Care. If you have any questions or need assistance, do not contact this author. Please refer all questions to your local, on-site pharmacy departments. /harpal/ MILO CH grab setter Claims Attorney, ID/Pharmacy Customer Care Signed: 12/14/2023 18:41 Receipt Acknowledged By: 04/17/2024 12:28 /es/ STEPHON UGARTE MD PHYSICIAN 12/15/2023 09:12 /es/ VALENTINA CODYN,RN-BC REGISTERED NURSE (RN) [facility]Z [facility]
--- OUTSIDE RECORDS SUMMARY | 2024-07-27 11:27 | XMS_ITS | Encounter Summary ---
Author Name [facility] [place] Address [address] [place] [address] Care Team Providers Care Demi Chef Name Role Phone STEPHON UGARTE Primary Care [...] SUPPLEMEN ANTWAN MEDEX 2 Apr 26, 2017 [id number] MARCIAL VILLAELIO PATIENT ANTHEM BCBS OF CT MEDICARE SUPPLEMEN ANTWAN COH RETIR EMENT Apr 26, 2017 [id number] MARCIAL VILLAELIO [place] SUPPLEMEN ANTWAN MEDEX 2 Apr 26, 2017 [id number] ELIO CORT[place] SUPPLEMEN ANTWAN MEDEX 2 Apr 26, 2017 [id number] ELIO [place]ORT[place] SUPPLEMEN ANTWAN MEDEX 2 Apr 26, 2017 [id number] ELIO CORTES PATIENT MEDICARE (WNR) MEDICARE (M) PART A Oct 24, 2012 PART A [id number] [phone] ELIO CORTES PATIENT MEDICARE (WNR) MEDICARE (M) PART B Oct 24, 2012 PART B [id number] ELIO CORTES PATIENT MEDICARE (WNR) MEDICARE (M) PART A Oct 24, 2012 PART A [id number] ELIO CORTES PATIENT MEDICARE (WNR) MEDICARE (M) PART B Oct 24, 2012 PART B [id number] ELIO CORTES PATIENT MEDICARE (WNR) MEDICARE (M) PART A Oct 24, 2012 PART A [id number] ELIO CORTES PATIENT MEDICARE (WNR) MEDICARE (M) PART B Oct 24, 2012 PART B [id number] ELIO CORTES PATIENT Selected Encounter This section includes the information on record at [place] for the Encounter. Date/Time Encounter Type Encounter [...] 02:18 PM PRIMARY Nail dystrophy MEJIA MARCH [facility] Feb 01, 2024 02:18 PM SECONDARY Corns and callosities MEJIA MARCH [place] Feb 01, 2024 02:18 PM SECONDARY Ingrowing nail MEJIA MARCH [place] Feb 01, 2024 02:18 PM SECONDARY Pain in left toe(s) MEJIA MARCH Feb 01, 2024 02:18 PM SECONDARY Pain in right foot MEJIA MARCH Feb 01, 2024 02:18 PM SECONDARY Pain in right toe(s) MEJIA MARCH [place] Feb 01, 2024 02:18 PM SECONDARY Peripheral vascular disease, unspecified MEJIA MARCH Plan of Treatment: Future Appointments (+ 6 months) and Future Tests (+/- 45 days) The Plan of Treatment section includes future care activities for the patient from all [place] [facility] This section includes future appointments and future orders which are active, pending or scheduled. Future Appointments This section includes appointments that were scheduled to occur 6 months from the date of the Encounter, up to a maximum of 20 appointments. The data comes from all [place] treatment facilities. Appointment Date/Time Appointment Type Appointme nt Facility Name Feb 24, 2024 02:30 PM AMBULATORY - MEDICINE [facility] Apr 11, 2024 02:00 PM AMBULATORY - MEDICINE [facility] Jun 06, 2024 11:00 AM AMBULATORY - MEDICINE [facility] Jun 08, 2024 03:30 PM AMBULATORY - MEDICINE [facility] Jun 09, 2024 11:15 AM AMBULATORY - MEDICINE [facility] Social History: Smoking Status (Most current) and Tobacco Use (All prior to encounter date) This section includes the most current, and the historical, smoking and tobacco- related health factors from the [place] facility where the Encounter took place. Current Smoking Status This section includes the most current smoking, or tobacco-related health factor, from the [place] facility where the Encounter took place. Date/Time Current Smoking Status Comment Ale de león Oct 25, 2023 08:30 AM [place]-TOBACCO NEVER USED [facility] Tobacco Use History This section includes a history of the smoking, or tobacco-related health factors, that were collected on or before the date of the Encounter. The data comes from the [place] facility where the Encounter took place. Date/Time Smoking Status/Tobacco Use Comment F acselvin Mar 23, 2022 01:30 PM [facility]-TOBACCO NEVER USED [facility] September 12, 2020 10:30 AM VA-TOBACCO NEVER USED [facility] May 31, 2019 02:48 PM VA-TOBACCO FORMER USER [facility] May 31, 2019 02:48 PM [place]-TOBACCO QUIT 5 TO < 15 YRS [facility] Advance Directives: All historical and current Section Date Range: From patient's date of to the date document was created. This section includes ALL of a patient's completed or amended [place] Advance and Rescinded Directives. The entries below indicate that a directive exists for the patient, but an actual copy is not included with this document. The data comes from all [place] facilities. Date Advance Directives Provider Source Apr [...] HAS RECEIVED BOTH COVID VACCINE DOSES AT [facility] LAST SEEN FOR TREATMENT: 08/24/2023 S: Pt. [...] present physical-medical status. Protective sensation utilizing a [place] lOg monofilament is 02/10 LEFT & 5/10 [...] NAIL & CALLUS CARE (08/23 @ 11:30) ([facility]-DISCUSSED THE DISRUPTION ON THE [facility] AND ARE AT A LOSS [...] this VA (local) and dispensed from another [place] or DoD facility (remote) as well as [...] list may not be complete. Please check [employer]. Allergies/ADRs (Tool #5) FACILITY ALLERGY/ADR -------- No Remote Allergy/ADR Data available for this patient [facility] [place] [facility] [place] Med Recon NoGlossary (Tool #1) INCLUDED IN THIS LIST: Alphabetical list of active outpatient prescriptions dispensed from this VA (local) and dispensed from another [place] or [facility]D facility (remote) as well as inpatient orders (local pending and active), local clinic medications, locally documented non-VA medications, and local prescriptions that have or been discontinued in the past 90 days. Non-VA Meds Last Documented On: Nov 11, 2022 NOTE The display of VA prescriptions dispensed from another [place] or [facility] facility (remote) is limited to active outpatient prescription entries matched to National Drug File at the originating site and may not include some items such as investigational drugs, compounds, etc. NOT INCLUDED IN THIS LIST: Medications self-entered by the patient into personal health records (i.e. [employer]) are NOT included in this list. Non-VA medications documented outside this [place], remote inpatient orders (regardless of status) and remote clinic medications are NOT included in this list. The patient and provider must always discuss medications the patient is taking, regardless of where the medication was dispensed or obtained. OUTPT AMLODIPINE BESYLATE 5MG TAB (Status = Active) TAKE ONE TABLET BY MOUTH ONCE DAILY FOR BLOOD PRESSURE/HEART, DO NOT TAKE WITH GRAPEFRUIT JUICE Rx# [id number] Last Released: 11/09/23 Qty/Days Supply: 90 Rx Expiration Date: 02/12/24 Refills Remainin OUTPT ATORVASTATIN CALCIUM 80MG TAB (Status = Active) TAKE ONE-HALF TABLET BY MOUTH ONCE DAILY FOR CHOLESTEROL Rx# [id number] Last Released: 10/20/23 Qty/Days Supply: 45 Rx Expiration Date: 04/19/24 Refills Remainin OUTPT BETAMETHASONE DIPRO AUGMENT 0.05% CREAM (Status = ) APPLY DIRECTED TOPICALLY TWICE DAILY FOR 2 WEEKS, STOP FOR 1 WEEK FOR ITCHING/RASH Rx# [id number] Last Released: 10/25/23 Qty/Days Supply: 50/14 Rx Expiration Date: 11/24/23 Refills Remainin Indication: FOR ATOPIC DERMATITIS OUTPT BUSPIRONE HCL 10MG TAB (Status = ) TAKE ONE TABLET BY MOUTH THREE TIMES A DAY FOR ANXIETY Rx# [id number] Last Released: 11/12/22 Qty/Days Supply: 270/90 Rx Expiration Date: 11/12/23 Refills Remainin Indication: FOR ANXIETY OUTPT CARBOXYMETHYLCELLULOSE NA 0.5% OPH SOLN (Status = Active) INSTILL 1 DROP INTO EACH EYE FOUR TIMES DAILY NEEDED FOR DRY EYE Rx# [id number] Last Released: 06/10/23 Qty/Days Supply: Rx Expiration Date: 06/03/24 Refills Remainin Indication: FOR DRY EYE Non-VA CLONAZEPAM 0.5MG TAB TAKE ONE TABLET BY MOUTH TWICE DAILY NEEDED OUTPT ESCITALOPRAM OXALATE 10MG TAB (Status = Discontinued) TAKE ONE-HALF TABLET BY MOUTH TWICE DAILY FOR MAJOR DEPRESSIVE DISORDER FOR MOOD/DEPRESSION Rx# [id number] Last Released: 09/23/23 Qty/Days Supply: Rx Expiration Date: 11/27/23 Refills Remainin Indication: FOR MAJOR DEPRESSIVE DISORDER OUTPT ESCITALOPRAM OXALATE 10MG TAB (Status = Active) TAKE ONE-HALF TABLET BY MOUTH TWICE DAILY FOR MAJOR DEPRESSIVE DISORDER FOR MOOD/DEPRESSION Rx# [id number] Last Released: 12/24/23 Qty/Days Supply: Rx Expiration Date: 12/23/24 Refills Remainin Indication: FOR MAJOR DEPRESSIVE DISORDER OUTPT FINASTERIDE 5MG TAB (Status = Active/Suspended) TAKE ONE TABLET BY MOUTH ONCE DAILY NEEDED FOR PROSTATE Rx# [id number] Last Released: 12/04/23 Qty/Days Supply: Rx Expiration Date: 04/12/24 Refills Remainin Non-VA FISH OIL 500MG DHA/EPA CAP,ORAL TAKE BY MOUTH ONCE DAILY OUTPT FLUTICASONE PROP 50MCG 120D NASAL INHL (Status = Active) INSTILL 2 SPRAYS INTO EACH NOSTRIL ONCE DAILY FOR NASAL IRRITATION/INFLAMMATION MAY DECREASE TO 1 SPRAY/NOSTRIL WHEN CONTROLLED Rx# [id number] Last Released: 11/25/23 Qty/Days Supply: Rx Expiration Date: 06/17/24 Refills Remainin Indication: FOR NASAL IRRITATION/INFLAMMATION OUTPT GABAPENTIN 600MG TAB (Status = Active) TAKE ONE-HALF TABLET BY MOUTH TWICE DAILY FOR NERVE PAIN Rx# [id number] Last Released: 05/13/23 Qty/Days Supply: Rx Expiration Date: 05/11/24 Refills Remainin Indication: FOR NERVE PAIN Non-VA GLUCOSAMINE CAP/TAB TAKE 1000MG BY MOUTH ONCE DAILY OUTPT LISINOPRIL 10MG TAB (Status = Active) TAKE ONE TABLET BY MOUTH ONCE DAILY TO CONTROL BLOOD PRESSURE Rx# [id number] Last Released: 10/25/23 Qty/Days Supply: 90 Rx Expiration Date: 10/25/24 Refills Remainin Indication: FOR HIGH BLOOD PRESSURE Non-VA LYSINE CAP/TAB TAKE ONE TABLET BY MOUTH ONCE DAILY Non-VA NAPROXEN 500MG TAB TAKE ONE TABLET BY MOUTH ONCE DAILY OUTPT OMEPRAZOLE 20MG EC CAP (Status = Active) TAKE ONE CAPSULE BY MOUTH TWICE DAILY FOR GASTROESOPHAGEAL REFLUX DISEASE Rx# [id number] Last Released: 09/28/23 Qty/Days Supply: 180/90 Rx Expiration Date: 09/23/24 Refills Remainin Indication: FOR GASTROESOPHAGEAL REFLUX DISEASE OUTPT SUNSCREEN 30-50/AVOBENZONE/PABA-F LOTION (Status = ) APPLY A LIBERAL AMOUNT TOPICALLY NEEDED TO PREVENT SUNBURN Rx# [id number] Last Released: 10/29/22 Qty/Days Supply: 480/90 Rx Expiration Date: 10/24/23 Refills Remainin Indication: TO PREVENT SUNBURN OUTPT SUNSCREEN 30-50/PHY BLOCK/PABA-F FACE CR (Status = ) APPLY A LIBERAL AMOUNT TOPICALLY NEEDED TO PREVENT SUNBURN Rx# [id number] Last Released: 10/28/22 Qty/Days Supply: 360/90 Rx Expiration Date: 10/24/23 Refills Remainin Indication: TO PREVENT SUNBURN SUPPLIES Suicide Screen: C-SSRS Screening [place]-Suicide Severity Rating Scale (C-SSRS Screener) 1. Over [...] to other questions. /harpal/ MEJIA MARCH DPM LINE REPAIRER Signed: 01/18/2024 12:04 MEJIA MARCH
--- OUTSIDE RECORDS SUMMARY | 2024-07-27 11:27 | XMS_ITS | Encounter Summary ---
Author Name [facility] [place] Address [address] [place] [address] Care Team Providers Care Surgical Processor Name Role Phone STEPHON UGARTE Primary Care [...] SUPPLEMEN ANTWAN MEDEX 2 Apr 26, 2017 [id number] MARCIAL IVLLAELIO PATIENT ANTHEM BCBS OF CT MEDICARE SUPPLEMEN ANTWAN COH RETIR EMENT Apr 26, 2017 [id number] MARCIAL VILLAELIO PATIENT [place] SUPPLEMEN ANTWAN MEDEX 2 Apr 26, 2017 [id number] MARCIAL DAISYELIO [place] SUPPLEMEN ANTWAN MEDEX 2 Apr 26, 2017 [id number] MARCIAL VILLAEL[place] SUPPLEMEN ANTWAN MEDEX 2 Apr 26, 2017 [id number] ELIO CORTES PATIENT MEDICARE (WNR) MEDICARE (M) PART A Oct 24, 2012 PART A [id number] ELIO CROTES PATIENT MEDICARE (WNR) MEDICARE (M) PART B Oct 24, 2012 PART B [id number] ELIO CORTES PATIENT MEDICARE (WNR) MEDICARE (M) PART A Oct 24, 2012 PART A [id number] ELIO CORTES PATIENT MEDICARE (WNR) MEDICARE (M) PART B Oct 24, 2012 PART B [id number] [phone] ELIO CORTES PATIENT MEDICARE (WNR) MEDICARE (M) PART A Oct 24, 2012 PART A [id number] ELIO CORTES PATIENT MEDICARE (WNR) MEDICARE (M) PART B Oct 24, 2012 PART B [id number] ELIO CORTES PATIENT Selected Encounter This section includes the information on record at [place] for the Encounter. 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 Date/Time Primary/Secondary Diagnosis Diagnosis Name Provider Source Jan 14, 2024 01:11 PM PRIMARY Other low back pain BEBETOROCHELLE HENNESSY [place] [facility] [place] [facility] Plan of Treatment: Future Appointments (+ 6 months) and Future Tests (+/- 45 days) The Plan of Treatment section includes future care activities for the patient from all [place] treatmentfacilities. This section includes future appointments and future orders which are active, pending or scheduled. Future Appointments This section includes appointments that were scheduled to occur 6 months from the date of the Encounter, up to a maximum of 20 appointments. The data comes from all [place] treatment facilities. Appointment Date/Time Appointment Type Appointme nt Facility Name Jan 06, 2024 03:00 PM AMBULATORY [facility]ICINE [facility] [place] [facility] Jan 14, 2024 02:30 PM AMBULATORY [facility] MEDICINE [facility] [place] [facility] Jan 18, 2024 11:30 AM [facility]UL[facility]ORY - [place]IC[place] Feb 24, 2024 02:30 PM AMBULATORY - MEDICINE [facility] [place] [facility] Apr 11, 2024 02:00 PM AMBULATORY - MEDICINE [facility] [place] [facility] Jun 06, 2024 11:00 AM [facility]ORY - [place]IC[place] Jun 08, 2024 03:30 PM AMBULATORY - MEDICINE [facility] [place] [facility] Jun 09, 2024 11:15 AM AM[facility]ATORY - MEDICINE [facility] Advance Directives: All historical and current Section Date Range: From patient's date of to the date document was created. This section includes ALL of a patient's completed or amended VA Advance and Rescinded Directives. The entries below indicate that a directive exists for the patient, but an actual copy is not included with this document. The data comes from all [place] facilities. Date Advance Directives Provider Source Apr [...] AUTHOR: ROCHELLE TATE EXP COSIGNER: URGENCY: STATUS: ELIO IBARRA is a [...] Hypercholesterolemia E78.00 04/16/2020 TORITO,STEPHON Hypertension I10. 09/12/2020 TORITO,SETPHON CoManagement R69. 04/16/2020 TORITO,STEPHON Anxiety disorder F41.1 10/23/2022 0 Past Surgeries: HX prostate cancer Patient [facility] [place] [facility] with report of improvement since [...] it hurts Prior treatment: years ago Prior healthcare administrator: years ago and it did not help. Ortho surgeon ordered x- rays and recommended PT which he did and received no benefit. Exercise/Activities: Weight lifts at [employer] and he walks regularly. GOALS: walk w/o pain weight lifting w/o pain Vet anticipates Hypnosis at this [place] for weight loss. Reviewed Radiologist's reports: none [...] Signed: 12/31/2023 14:47 ROCHELLE TATE [facility]
--- OUTSIDE RECORDS SUMMARY | 2024-07-27 11:27 | XMS_ITS | Encounter Summary ---
Author Name [facility] [place] Address [address] [place] [address] Care Team Providers Care Healthcare Translator Name Role Phone STEPHON UGARTE Primary Care [...] SUPPLEMEN ANTWAN MEDEX 2 Apr 26, 2017 [id number] ELIO CORTES PATIENT ANTHEM BCBS OF CT MEDICARE SUPPLEMEN ANTWAN COH RETIR EMENT Apr 26, 2017 [id number] ELIO CORTES PATIENT [place] SUPPLEMEN ANTWAN MEDEX 2 Apr 26, 2017 [id number] ELIO CORTES PATIENT [place] MED[place] SUPPLEMEN ANTWAN MEDEX 2 Apr 26, 2017 [id number] ELIO CORTES PATIENT [place] MEDIC[place] SUPPLEMEN ANTWAN MEDEX 2 Apr 26, 2017 [id number] [phone] ELIO CORTES PATIENT MEDICARE (WNR) MEDICARE (M) PART A Oct 24, 2012 PART A [id number] ELIO CORTES PATIENT MEDICARE (WNR) MEDICARE (M) PART B Oct 24, 2012 PART B [id number] ELIO CORTES PATIENT MEDICARE (WNR) MEDICARE (M) PART A Oct 24, 2012 PART A [id number] ELIO CORTES PATIENT MEDICARE (WNR) MEDICARE (M) PART B Oct 24, 2012 PART B [id number] ELIO CORTES PATIENT MEDICARE (WNR) MEDICARE (M) PART A Oct 24, 2012 PART A [id number] ELIO CORTES PATIENT MEDICARE (WNR) MEDICARE (M) PART B Oct 24, 2012 PART B [id number] [phone] ELIO CORTES PATIENT Selected Encounter This section includes the information on record at [place] for the Encounter. Date/Time Encounter Type Encounter Description Reason Pro vider Source Feb 18, 2024 08:28 AM Outpatient Encounter ADMIN PAT ACTIVTIES (MASNONCT) IHE Encounter Template Text not used by [place] Plan of Treatment: Future Appointments (+ 6 months) and Future Tests (+/- 45 days) The Plan of Treatment section includes future care activities for the patient from all [place] treatmentfacilities. This section includes future appointments and future orders which are active, pending or scheduled. Future Appointments This section includes appointments that were scheduled to occur 6 months from the date of the Encounter, up to a maximum of 20 appointments. The data comes from all [place] treatment facilities. Appointment Date/Time Appointment Type Appointme nt Facility Name Feb 24, 2024 02:30 PM AMBULATORY - MEDICINE [place] [facility] [place] [facility] Apr 11, 2024 02:00 PM AMBULATORY - MEDICINE [place] [facility] [place] [facility] Jun 06, 2024 11:00 AM AMBULATORY - MEDICINE [facility] Jun 08, 2024 03:30 PM AMBULATORY - MEDICINE [facility] Jun 09, 2024 11:15 AM AMBULATORY - MEDICINE [facility] Advance Directives: All historical and current Section Date Range: From patient's date of to the date document was created. This section includes ALL of a patient's completed or amended VA Advance and Rescinded Directives. The entries below indicate that a directive exists for the patient, but an actual copy is not included with this document. The data comes from all [place] facilities. Date Advance Directives Provider Source Apr [...] DATE: FEB 18, 2024@08:28:36 AUTHOR: PAGE WINSTON EXP COSIGNER: URGENCY: STATUS: COMPLETED Date: Jan Division: [place] Pt referred by Pharmacy Call Center for medication renewal: Non-controlled/maintenanc e medication Medications requested: [id number] FINASTERIDE 5MG TAB Defer to primary care provider To be mailed . Please review and renew if appropriate. *This note was generated by [facility] Pharmacy Customer Care. If you have any questions or need assistance, do not contact this author. Please refer all questions to your local, on-site pharmacy departments. /harpal/ PAGE WINSTON CPhT CUSTOMS OPENER VERIFIER PACKER, [place]/PHARMACY CUSTOMER CARE Signed: 02/18/2024 08:28 Receipt Acknowledged By: 04/25/2024 14:06 /harpal/ STEPHON UGARTE MD PHYSICIAN 02/18/2024 08:51 /harpal/ VALENTINA CODYN,RN-BC REGISTERED NURSE (RN) [facility]
--- OUTSIDE RECORDS SUMMARY | 2024-07-27 11:27 | XMS_ITS | Encounter Summary ---
Author Organization [facility] Address [address] [place] [address] Care Team Providers Care Biofuels Production Associate Name Role Phone Javier Boland MD Primary Care Provider Minna vailable Sahil Roque MD Primary Care Provider [phone] Jim Blue MD Primary Care Provider Unavail able Monique Wan DO Primary Care Pro vider Unavailable Abdoulaye Mott DO Primary Care Provider Minna vailable Edna Laird MD Primary Care Provider [phone] Encounter Details Date Type Department Care Team Description 01/25/2009 Hospital Medical Records [address] [place] [address] Brian Pa Social History Tobacco Use Types Packs/Day Years Used Date Smoking Tobacco: Former Smokeless Tobacco: Former Comments:quit 1999, after [employer] for at least 36 years Alcohol Use Standard Drinks/Week Comments No 0 (1 standard drink = 0.6 oz pur e alcohol) Sex Assigned at Date Recorded Not on file Job Start Date Occupation Industry Not on file Not on file Not on file documented as of this encounter Plan of Treatment Not on file documented as of this encounter Visit Diagnoses Not on filedocumented in this encounter Care Teams Biofuels Production Associate Relationship Specialty Start Date End Date Javier Boland MD PCP - General 01/23/10 04/25/14 Sahil Roque MD [address] [place] [id number] PCP - General 02/17/00 01/22/10 Jim Blue MD [address] [place] [address] PCP - General Internal Medicine 04/27/14 02/14/15 Monique Wan, [address] [place] [address] PCP - General Internal Medicine 02/15/15 10/14/20 Abdoulaye Mott DO [address] [place] [id number] PCP - General Internal Medicine 10/15/20 01/02/21 Edna Laird MD [address] [place] [address] PCP - General Internal Medicine 01/03/21 documented as of this encounter
--- OUTSIDE RECORDS SUMMARY | 2024-07-27 11:27 | XMS_ITS ---
Author Organization [facility] Address [address] [place] [address] Care Team Providers Care Drafter Geological Name Role Phone Joanne Bejarano MD Primary Care Provider Abdoulaye Cast [phone] Encounters Encounter Location Date Provider Diagnosis [facility] [address] [place] [address] 03/30/2023 Abdoulaye Ronquillo Plan Of Treatment No Information Progress Notes * ANTWAN HILLOB:[birth year] (77 yo M)Acc No.[id number]:03/30/2023 Patient:?ELIO HILL :1945???Age:77 Y???Sex:Male Address:[address], [place] [address] * true * Date:? Generated for Printi ken/Mine/eTransmitting on:?07/27/2024 11:26 AM EDT
--- OUTSIDE RECORDS SUMMARY | 2024-07-27 11:28 | XMS_ITS | Encounter Summary ---
Author Name [facility] [place] Organization [facility] [place] Address [address] [place] [address] Care Team Providers Care Crab Steamer Name Role Phone STEPHON UGARTE Primary Care [...] SUPPLEMEN ANTWAN MEDEX 2 Apr 26, 2017 [id number] MARCIAL VILLAELIO PATIENT ANTHEM BCBS OF CT MEDICARE SUPPLEMEN ANTWAN COH RETIR EMENT Apr 26, 2017 [id number] MARCIAL VILLAELIO PATIENT [place] MED[place] SUPPLEMEN ANTWAN MEDEX 2 Apr 26, 2017 [id number] [phone] MARCIAL ELIO VILL[place] SUPPLEMEN ANTWAN MEDEX 2 Apr 26, 2017 [id number] MARCIAL VILLAEL[place] SUPPLEMEN ANTWAN MEDEX 2 Apr 26, 2017 [id number] ELIO CORTES PATIENT MEDICARE (WNR) MEDICARE (M) PART A Oct 24, 2012 PART A [id number] ELIO CORTES PATIENT MEDICARE (WNR) MEDICARE (M) PART B Oct 24, 2012 PART B [id number] [phone] ELIO CORTES PATIENT MEDICARE (WNR) MEDICARE (M) PART B Oct 24, 2012 PART B [id number] ELIO CORTES PATIENT MEDICARE (WNR) MEDICARE (M) PART A Oct 24, 2012 PART A [id number] ELIO CORTES PATIENT MEDICARE (WNR) MEDICARE (M) PART A Oct 24, 2012 PART A [id number] ELIO CORTES PATIENT MEDICARE (WNR) MEDICARE (M) PART B Oct 24, 2012 PART B [id number] [phone] ELIO CORTES PATIENT Selected Encounter This section includes the information on record at [place] for the Encounter. Date/Time Encounter Type Encounter Description Reason Provider Source Aug 24, 2023 11:30 AM OFFICE O/P EST LOW 20 MIN PODIATRY ICD-10-CM R73.03 Prediabetes MEJIA MARCH Julee Encounter Template Text not used by [place] [...] - MEDICINE [facility] [place] [facility] Nov 23, 2023 01:00 PM AMBULATORY - MEDICINE [facility] [place] [facility] Dec 06, 2023 08:30 AM AMBULATORY - PSYCHIATRY [facility] [place] [facility] Dec 24, 2023 02:00 PM AMBULATORY - MEDICINE [place] [facility] [place] [facility] Dec 28, 2023 02:45 PM AMBULATORY - MEDICINE [facility] Dec 31, 2023 02:00 PM AMBULATORY - MEDICINE [place] [facility] [place] [facility] Jan 06, 2024 03:00 PM AMBULATORY - MEDICINE [facility] [place] [facility] Jan 14, 2024 02:30 PM AMBULATORY - MEDICINE [place] [facility] [place] [facility] Jan 18, 2024 11:30 AM AMBULATORY - MEDICINE [facility] Social History: Smoking Status (Most current) and Tobacco Use (All prior to encounter date) This section includes the most current, and the historical, smoking and tobacco- related health factors from the [place] facility where the Encounter took place. Current Smoking Status This section includes the most current smoking, or tobacco-related health factor, from the [place] facility where the Encounter took place. Date/Time Current Smoking Status Comment Ale de león Mar 23, 2022 01:30 PM VA-TOBACCO NEVER USED [facility] Tobacco Use History This section includes a history of the smoking, or tobacco-related health factors, that were collected on or before the date of the Encounter. The data comes from the [place] facility where the Encounter took place. Date/Time Smoking Status/Tobacco Use Comment F acility September 12, 2020 10:30 AM VA-TOBACCO NEVER USED [facility] May 31, 2019 02:48 PM VA-TOBACCO FORMER USER [facility] May 31, 2019 02:48 PM VA-TOBACCO QUIT 5 TO < 15 YRS [facility] Advance Directives: All historical and current Section Date Range: From patient's date of to the date document was created. This section includes ALL of a patient's completed or amended VA Advance and Rescinded Directives. The entries below indicate that a directive exists for the patient, but an actual copy is not included with this document. The data comes from all [place] facilities. Date Advance Directives Provider Source Apr 24, 2020 ADVANCE DIRECTIVE DWAINE EDNT LD Encounter Notes: All associated encounter notes This section contains the clinical notes associated to the Encounter. Date/Time Encounter Note(s) Provider Source Aug 24, 2023 07:43 AM PODIATRY NOTE: LOCAL TITLE: PODIATRY NOTE STANDARD TITLE: PODIATRY NOTE DATE OF NOTE: AUG 24, 2023@07:43 ENTRY DATE: AUG 24, 2023@07:43:23 AUTHOR: MEJIA MARCH COSIGNER: URGENCY: STATUS: COMPLETED NOTE: HAS RECEIVED BOTH COVID VACCINE DOSES AT [facility] LAST SEEN FOR TREATMENT: 06/07/2023 S: [...] present physical-medical status. Protective sensation utilizing a [employer] lOg monofilament is 02/10 LEFT & 5/10 [...] NAIL & CALLUS CARE (08/23 @ 11:30) ([facility] MEANS-DISCUSSED THE DISRUPTION ON THE [facility] AND ARE AT A LOSS TO [...] this VA (local) and dispensed from another [place] or [facility] facility (remote) as well as [...] list may not be complete. Please check [employer]. Allergies/ADRs (Tool #5) FACILITY ALLERGY/ADR -------- No Remote Allergy/ADR Data available for this patient [facility] [place] [facility]IN[facility] Med Recon NoGlossary (Tool #1) INCLUDED [...] display of VA prescriptions dispensed from another [place] or [facility] facility (remote) is limited to active outpatient prescription entries matched to National Drug File at the originating site and may not include some items such as investigational drugs, compounds, etc. NOT INCLUDED IN THIS LIST: Medications self-entered by the patient into personal health records (i.e. Nostalgia Bingo) are NOT included in this list. Non-VA medications documented outside this [place], remote inpatient orders (regardless of status) and remote clinic medications are NOT included in this list. The patient and provider must always discuss medications the patient is taking, regardless of where the medication was dispensed or obtained. OUTPT AMLODIPINE BESYLATE 5MG TAB (Status = Active) TAKE ONE TABLET BY MOUTH ONCE DAILY FOR BLOOD PRESSURE/HEART, DO NOT TAKE WITH GRAPEFRUIT JUICE Rx# [id number] Last Released: 08/04/23 Qty/Days Supply: Rx Expiration Date: 02/12/24 Refills Remainin OUTPT ATORVASTATIN CALCIUM 80MG TAB (Status = Active) TAKE ONE-HALF TABLET BY MOUTH ONCE DAILY FOR CHOLESTEROL Rx# [id number] Last Released: 04/29/23 Qty/Days Supply: 45 Rx Expiration Date: 04/19/24 Refills Remainin OUTPT BUSPIRONE HCL 10MG TAB (Status = Active) TAKE ONE TABLET BY MOUTH THREE TIMES A DAY FOR ANXIETY Rx# [id number] Last Released: 11/12/22 Qty/Days Supply: 270/90 Rx Expiration Date: 11/12/23 Refills Remainin Indication: FOR ANXIETY OUTPT CARBOXYMETHYLCELLULOSE NA 0.5% OPH SOLN (Status = Active) INSTILL 1 DROP INTO EACH EYE FOUR TIMES DAILY NEEDED FOR DRY EYE Rx# [id number] Last Released: 06/10/23 Qty/Days Supply: 45 Rx Expiration Date: 06/03/24 Refills Remainin Indication: FOR DRY EYE Non-VA CLONAZEPAM 0.5MG TAB TAKE ONE TABLET BY MOUTH TWICE DAILY NEEDED OUTPT ESCITALOPRAM OXALATE 10MG TAB (Status = Active) TAKE ONE-HALF TABLET BY MOUTH TWICE DAILY FOR MAJOR DEPRESSIVE DISORDER FOR MOOD/DEPRESSION Rx# [id number] Last Released: 11/27/22 Qty/Days Supply: Rx Expiration Date: 11/27/23 Refills Remainin Indication: FOR MAJOR DEPRESSIVE DISORDER OUTPT FINASTERIDE 5MG TAB (Status = Active) TAKE ONE TABLET BY MOUTH ONCE DAILY NEEDED FOR PROSTATE Rx# [id number] Last Released: 06/22/23 Qty/Days Supply: Rx Expiration Date: 04/12/24 Refills Remainin Non-VA FISH OIL 500MG DHA/EPA CAP,ORAL TAKE BY MOUTH ONCE DAILY OUTPT FLUOROURACIL 0.5% TOP CREAM (Status = ) APPLY A SMALL AMOUNT TOPICALLY ONCE DAILY FOR ROUGHENED RED PATCHES OF SKIN FOR UP TP 2 WEEKS TOLERATED Rx# [id number] Last Released: QtyDays Supply: Rx Expiration Date: 07/18/23 Refills Remainin Indication: FOR ROUGHENED RED PATCHES OF SKIN OUTPT FLUTICASONE PROP 50MCG 120D NASAL INHL (Status = Active) INSTILL 2 SPRAYS INTO EACH NOSTRIL ONCE DAILY FOR NASAL IRRITATION/INFLAMMATION MAY DECREASE TO 1 SPRAY/NOSTRIL WHEN CONTROLLED Rx# [id number] Last Released: 06/22/23 Qty/Days Supply: Rx Expiration Date: 06/17/24 Refills Remainin Indication: FOR NASAL IRRITATION/INFLAMMATION OUTPT GABAPENTIN 600MG TAB (Status = Active) TAKE ONE-HALF TABLET BY MOUTH TWICE DAILY FOR NERVE PAIN Rx# [id number] Last Released: 05/13/23 Qty/Days Supply: Rx Expiration [...] EVERY MORNING 30 MINUTES BEFORE BREAKFAST Rx# [id number] Last Released: 05/11/23 Qty/Days Supply: 90 Rx Expiration Date: 12/18/23 Refills Remainin Indication: FOR GASTROESOPHAGEAL REFLUX DISEASE OUTPT PEG 400 0.4%/PROP GLYCOL 0.3% OPH SOLN (Status = ) INSTILL 1 DROP INTO EACH EYE FOUR TIMES DAILY NEEDED DRY EYES Rx# [id number] Last Released: 06/09/22 Qty/Days Supply: 60 Rx Expiration Date: 06/02/23 Refills Remainin Indication: DRY EYES OUTPT PHENTERMINE 7.5/TOPIRAMATE 46MG SA CAP (Status = ) TAKE 1 CAPSULE BY MOUTH EVERY MORNING FOR WEIGHT LOSS MANAGEMENT WITH OR WITHOUT FOOD Rx# [id number] Last Released: 06/15/23 Qty/Days Supply: Rx Expiration Date: 08/14/23 Refills Remainin Indication: FOR WEIGHT LOSS MANAGEMENT OUTPT SUNSCREEN 30-50/AVOBENZONE/PABA-F LOTION (Status = Active) APPLY A LIBERAL AMOUNT TOPICALLY NEEDED TO PREVENT SUNBURN Rx# [id number] Last Released: 10/29/22 Qty/Days Supply: 480/90 Rx Expiration Date: 10/24/23 Refills Remainin Indication: TO PREVENT SUNBURN OUTPT SUNSCREEN 30-50/PHY BLOCK/PABA-F FACE CR (Status = Active) APPLY A LIBERAL AMOUNT TOPICALLY NEEDED TO PREVENT SUNBURN Rx# [id number] Last Released: 10/28/22 Qty/Days Supply: 360/90 Rx Expiration Date: 10/24/23 Refills Remainin Indication: TO PREVENT SUNBURN SUPPLIES /harpal/ MEJIA MARCH 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
--- OUTSIDE RECORDS SUMMARY | 2024-07-27 11:28 | XMS_ITS | Encounter Summary ---
Author Organization [facility] Address [address] [place] [address] Care Team Providers Care Election Judge Name Role Phone Monique Wan DO Primary Care Pro vider Unavailable Abdoulaye Mott DO Primary Care Provider Edna Curtis MD Primary Care Provider Encounter Details Date Type Department Care Team Description 04/05/2020 Business Doc Medical Records [address] [place] [id number] Abstract, Provider Social History Tobacco Use Types Packs/Day Years Used Date Smoking Tobacco: Former Smokeless Tobacco: Former Comments:quit 1999, after [employer] for at least 36 years Alcohol Use Standard Drinks/Week Comments No 0 (1 standard drink = 0.6 oz pur e alcohol) Sex Assigned at Date Recorded Not on file Job Start Date Occupation Industry Not on file Not on file Not on file COVID-19 Exposure Response Date Recorded In the last month, have you been in contact with someone who was confirmed or suspected to have Coronavirus / COVID-19? No / Unsure 04/02/2020 10:43 AM EST documented as of this encounter Plan of Treatment Not on file documented as of this encounter Visit Diagnoses Not on filedocumented in this encounter Care Teams Election Judge Relationship Specialty Start Date End Date Monique Wan DO PCP - General Internal Medicine 02/15/15 10/14/20 Abdoulaye Mott DO PCP - General Internal Medicine 10/15/20 01/02/21 Edna Laird MD [address] [place] [address] PCP - General Internal Medicine 01/03/21 documented as of this encounter
--- OUTSIDE RECORDS SUMMARY | 2024-07-27 11:28 | XMS_ITS | Encounter Summary ---
Author Organization [facility] Address [address] [place] [address] Care Team Providers Care Client Consultant Name Role Phone Monique Wan DO Primary Care Pro vider Unavailable Abdoulaye Mott DO Primary Care Provider Edna Curtis MD Primary Care Provider [phone] Reason for Visit * Reason Onset Date Comments TEST RESULTS 09/20/2019 Encounter Details Date Type Department Care Team Description 09/20/2019 Telephone General Surgery - [address] [place] [address] Sanjuanita Wilkins MD [address] [place] [address] [phone] TEST RESULTS Social History Tobacco Use Types Packs/Day Years [...] encounter Miscellaneous Notes * Telephone Encounter - Sanjuanita Wilkins MD - 09/27/2019 3:24 PM EDT I spoke with the patient and provided him with the normal test results. He is still having some pain, no increase in size of the breast/mass. He will follow up with me in 3-4 weeks. All questions were answered. * Telephone Encounter - Sanjuanita Wilkins MD - 09/26/2019 4:25 PM EDT I left a message on the patient's voicemail. * Telephone Encounter - Bernardo Chen - 09/26/2019 3:17 PM EDT Patient called in today asking to lab results. Patient states that the lab work was done last week and still hasn't received a call. * Telephone Encounter - Tonya Pathak - 09/20/2019 4:07 PM EDT Pt called wants to get the result from labs done 09/13. documented in this encounter Plan of Treatment Not on file documented as of this encounter Visit Diagnoses Not on filedocumented in this encounter Care Teams Client Consultant Relationship Specialty Start Date End Date Monique Wan, PCP - General Internal Medicine 02/15/15 10/14/20 Abdoulaye Mott DO PCP - General Internal Medicine 10/15/20 01/02/21 Edna Laird MD [address] [place] [id number] PCP - General Internal Medicine 01/03/21 documented as of this encounter
--- OUTSIDE RECORDS SUMMARY | 2024-07-27 11:28 | XMS_ITS | Encounter Summary ---
Author Organization [facility] Address [address] [place] [address] Care Team Providers Care Dobby Loom Weaver Name Role Phone Monique Wan DO Primary Care Pro vider Unavailable Abdoulaye Mott DO Primary Care Provider Minna Edna Rudd MD Primary Care Provider [phone] Encounter Details Date Type Department Care Team Description 09/14/2019 Orders Only Lab - [facility] [address] [place] [address] [phone] Sanjuanita Wilkins MD [address] [place] [address] [phone] Social History Tobacco Use Types Packs/Day Years [...] on filedocumented in this encounter Care Teams Dobby Loom Weaver Relationship Specialty Start Date End Date Monique Wan DO PCP - General Internal Medicine 02/15/15 10/14/20 Abdoulaye Mott DO PCP - General Internal Medicine 10/15/20 01/02/21 Edna Laird MD [address] [place] [address] [phone] PCP - General Internal Medicine 01/03/21 documented as of this encounter
--- OUTSIDE RECORDS SUMMARY | 2024-07-27 11:28 | XMS_ITS | Encounter Summary ---
Author Name [facility] [facility] [place] [facility] [place] [facility] [place] Address [address] [place] [address] Care Team Providers Care Buffet Waiter/Waitress Name Role Phone STEPHON UGARTE Primary Care [...] SUPPLEMEN ANTWAN MEDEX 2 Apr 26, 2017 [id number] [phone] MARCIAL VILLAELIO PATIENT ANTHEM BCBS OF CT MEDICARE SUPPLEMEN ANTWAN COH RETIR EMENT Apr 26, 2017 [id number] MARCIAL VILLAELIO PATIENT [place] SUPPLEMEN ANTWAN MEDEX 2 Apr 26, 2017 [id number] MARCIAL ELIO VILLA PATIENT [place] SUPPLEMEN ANTWAN MEDEX 2 Apr 26, 2017 [id number] MARCIAL VILLACONNIEELIO PATIENT [place] SUPPLEMEN ANTWAN MEDEX 2 Apr 26, 2017 [id number] [phone] ELIO CORTES PATIENT MEDICARE (WNR) MEDICARE (M) PART A Oct 24, 2012 PART A [id number] ELIO CORTES PATIENT MEDICARE (WNR) MEDICARE (M) PART B Oct 24, 2012 PART B [id number] ELIO CORTES PATIENT MEDICARE (WNR) MEDICARE (M) PART A Oct 24, 2012 PART A [id number] ELIO CORTES PATIENT MEDICARE (WNR) MEDICARE (M) PART B Oct 24, 2012 PART B [id number] [phone] ELIO CORTES PATIENT MEDICARE (WNR) MEDICARE (M) PART A Oct 24, 2012 PART A [id number] [phone] ELIO CORTES PATIENT MEDICARE (WNR) MEDICARE (M) PART B Oct 24, 2012 PART B [id number] [phone] ELIO CORTES PATIENT Selected Encounter This section includes the information on record at [place] for the Encounter. 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 Date/Time Primary/Secondary Diagnosis Diagnosis Name Provider Source Jan 23, 2024 09:02 AM PRIMARY Other low back pain BEBETOROCHELLE HENNESSY [place] [facility] [place] [facility] Plan of Treatment: Future Appointments (+ 6 [...] - MEDICINE [facility] [place] [facility] Jan 18, 2024 11:30 AM AMBULATORY - MEDICINE [place] [place] Feb 24, 2024 02:30 PM AMBULATORY - MEDICINE [facility] [place] [facility] Apr 11, 2024 02:00 PM AMBULATORY - MEDICINE [facility] [place] [facility] Jun 06, 2024 11:00 AM AMBULATORY - [facility]IC[place] [place] Jun 08, 2024 03:30 PM AMBULATORY - MEDICINE [facility] [place] [facility] Jun 09, 2024 11:15 AM [facility] Advance Directives: All historical and [...] DATE: JAN 06, 2024@15:04:40 AUTHOR: ROCHELLE TATE EXP COSIGNER: URGENCY: STATUS: [...] cancer C61. 04/16/2020 TORITO,STEPHON Hypercholesterolemia E78.00 04/16/2020 STEPHON UGARTE Hypertension I10. 09/12/2020 STEPHON UGARTE CoManagement R69. 04/16/2020 STEPHON UGARTE Anxiety disorder F41.1 10/23/2022 0 Past Surgeries: HX prostate cancer Patient [facility] [place] [facility] with report of some improvement since the last visit. He C/O soreness in low back, right side. The pain in his R hamstring has decr Vet states that he stopped using sugar and hopes to decr his weight. 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 Ortho surgeon ordered x- rays and recommended PT which he did and received no benefit. Exercise/Activities: Weight lifts at [employer] and he walks regularly. GOALS: walk w/o pain weight lifting w/o pain Vet anticipates Hypnosis at this [place] for weight loss. Reviewed Radiologist's reports: none [...] be taking vitamins. He agrees to consult Veterinary Pharmacologist. He also asks for recommendation to Acu to help decr overeating. Visit 4 F/U 4 weekly Seek urgent care as needed. CMT: chiropractic manipulative therapy SMT: Spinal Manipulative Therapy F/D: Flexion Distraction MFR: Myofascial Release S-I: Sacroiliac MFTP: Myofascial Trigger Point NRS: Numeric Rating Scale N/T: Numbness/Tingling PIR: Post isometric relaxation /es/ [facility] CHIR[facility]RACTOR Signed: 01/06/2024 15:48 ROCHELLE TATE [facility]
--- OUTSIDE RECORDS SUMMARY | 2024-07-27 11:28 | XMS_ITS | Encounter Summary ---
Author Name [facility] [facility] [place] Organization [facility] [place] Address [address] [place] [address] Care Team Providers Care Filter Press Supervisor Name Role Phone STEPHON UGARTE Primary [...] SUPPLEMEN ANTWAN MEDEX 2 Apr 26, 2017 [id number] ELIO CORTES PATIENT ANTHEM BCBS OF CT MEDICARE SUPPLEMEN ANTWAN COH RETIR EMENT Apr 26, 2017 [id number] ELIO CORT[place] SUPPLEMEN ANTWAN MEDEX 2 Apr 26, 2017 [id number] [phone] ELIO [place]ORT[place] SUPPLEMEN ANTWAN MEDEX 2 Apr 26, 2017 [id number] ELIO CORT[place] SUPPLEMEN ANTWAN MEDEX 2 Apr 26, 2017 [id number] ELIO CORTES PATIENT MEDICARE (WNR) MEDICARE (M) PART A Oct 24, 2012 PART A [id number] ELIO CORTES PATIENT MEDICARE (WNR) MEDICARE (M) PART B Oct 24, 2012 PART B [id number] ELIO CORTES PATIENT MEDICARE (WNR) MEDICARE (M) PART A Oct 24, 2012 PART A [id number] [phone] ELIO CORTES PATIENT MEDICARE (WNR) MEDICARE (M) PART B Oct 24, 2012 PART B [id number] [phone] ELIO CORTES PATIENT MEDICARE (WNR) MEDICARE () PART A Oct 24, 2012 PART A [id number] ELIO CORTES PATIENT MEDICARE (WNR) MEDICARE (M) PART B Oct 24, 2012 PART B [id number] [phone] ELIO CORTES PATIENT Selected Encounter This section includes the information on record at [place] for the Encounter. Date/Time Encounter Type Encounter Description Reason Provider Source Jun 08, 2024 03:30 PM COMPRE OPH EXAM EST PT 1/> OPTOMETRY ICD-10-CM Z96.1 Presence of intraocular lens MERHAR,KIKI B E Encounter Template Text not used by [place] Assessments - Encounter Diagnoses This section includes the primary and secondary diagnoses documented for the Encounter. Date/Time Primary/Secondary Diagnosis Diagnosis Name Provider Source Jul 11, 2024 12:16 PM PRIMARY Presence of intraocular lens MERHAR,KIKI B [facility] Jul 11, 2024 12:16 PM SECONDARY Dry eye syndrome of bilateral lacrimal glands MERHAR,KIKI B [facility] Jul 11, 2024 12:16 PM SECONDARY Other chronic allergic conjunctivitis MERHAR,KIKI B [facility] Jul 11, 2024 12:16 PM SECONDARY Regular astigmatism, bilateral MERHAR,KIKI B [facility] Plan of Treatment: Future Appointments (+ 6 months) and Future Tests (+/- 45 days) The Plan of Treatment section includes future care activities for the patient from all [place] [facility] This section includes future appointments and future orders which are active, pending or scheduled. Future Appointments This section includes appointments that were scheduled to occur 6 months from the date of the Encounter, up to a maximum of 20 appointments. The data comes from all [facility]. Appointment Date/Time Appointment Type Appointme nt Facility Name Jun 09, 2024 11:15 AM AMBULATORY - MEDICINE [facility] Oct 10, 2024 11:00 AM [facility] Nov 14, 2024 02:00 PM AMBULATORY - MEDICINE [facility] Active, Pending, and Scheduled Orders This section includes a listing of several types of active, pending, and scheduled orders, including clinic medications orders, diagnostic test orders, procedure orders and consult orders; where the start date of the order is 45 days before the date of the Encounter or 45 days after the date of theEncounter. The data comes from all [facility]. Test Date/Time Test Type Test Details Facility Name Jun 09, 2024 12:00 AM Laboratory - Chemistry Order BASIC METABOLIC PANEL (non-fasting) BLOOD (SST-SERUM) [facility] Jun 09, 2024 12:00 AM Laboratory - Chemistry Order HEMOGLOBIN A1C PANEL BLOOD (LAV-BLOOD) [facility] Jun 09, 2024 12:00 AM Laboratory - Chemistry Order MICROALBUMIN CREATININE RATIO PANEL URINE (RANDOM) [facility] Jun 09, 2024 12:00 AM Laboratory - Chemistry Order LIVER FUNCTION BLOOD (SST-SERUM) [facility] Jun 09, 2024 12:00 AM Laboratory - Chemistry Order LIPID PANEL, NON FASTING BLOOD (SST-SERUM) [facility] 14, 2025 12:00 AM Laboratory - Chemistry Order CBC BLOOD (LAV-BLOOD) [facility] Jun 28, 2024 01:54 PM Consult Order COMMUNITY CARE-ACUPUNCTURE Cons Manager Intern's Choice [facility] Lab Results: +/- 30 days of the encounter This section includes the Chemistry and Hematology Lab Results on record with [place] for the patient. Radiology Reports and Pathology Reports are provided separately, in subsequent sections. Lab Results This section contains the Chemistry/Hematology Results that were resulted 30 days before or 30 daysafter the date of the Encounter. Date/Time Source Result Type Result - Unit Interpretation Reference Range Comment Jun 09, 2024 11:41 AM [facility] COVID-19 FLU/RSV DIAGNOSTIC PANEL Speci men Type: NASOPHARYNX Comment: This test is authorized for emergency use only. False negative results may occur if virus is present at levels below the analytical limit of detection.Nega tive results do not preclude SARS-CoV-2, influenza or RSV infection and should not be used as the sole basis for treatment or other patient management decisions.[facility] guillermo FLUVID: HCPs: https://www.Purpl[employer] a.gov/media/2434/download. Patients: https://www.[employer].gov/media/2435/download Ordering Provider: MALACHI MORALES Report Released Date/Time: Jun 09, 2024 11:33 AM Reporting Lab: [address] [address] Performing Lab: [address] [address] COVID-19 PCR (FLUV[facility]) NEGATIVE NEGATIVE FLU A PCR (FLUVID) POSITIVE FLU B PCR (FLUVID) NEGATIVE RSV PCR ([facility]) NEGATIVE Advance Directives: All historical and current Section Date Range: From patient's date of to the date document was created. This section includes ALL of a patient's completed or amended [place] Advance and Rescinded Directives. The entries below indicate that a directive exists for the patient, but an actual copy is not included with this document. The data comes from all [place] facilities. Date Advance Directives Provider Source Apr [...] Code Description F90.9 Attention deficit hyperactivity disorder ([facility] [id number]) R73.03 Prediabetes ([facility] [id number]) N18.32 Chronic Kidney Disease Stage 3B ([facility] [id number]) K21.9 Gastroesophageal reflux disease without esophagitis ([facility] [id number]) C61. Prostate cancer ([facility] 723367137) E78.00 Hypercholesterolemia ([facility] [id number]) I10. Hypertension ([facility] [id number]) R69. CoManagement (ICD-10-CM R69.) F41.1 Anxiety disorder ([facility] [id number]) Other: SYSTEMIC MEDICATIONS/OCULAR MEDICATIONS: Active and Recently [...] Remote Allergy/ADR Data available for this patient [place] [facility] [place] [facility] [place] [facility] [place] [facility] Med Recon NoGlossary (Tool #1) INCLUDED IN THIS LIST: Alphabetical list of active outpatient prescriptions dispensed from this [place] (local) and dispensed from another [place] or DoD facility (remote) as well as inpatient orders (local pending and active), local clinic medications, locally documented non-VA medications, and local prescriptions that have or been discontinued in the past 90 days. Non-VA Meds Last Documented On: Nov 11, 2022 NOTE The display of VA prescriptions dispensed from another [place] or DoD facility (remote) is limited to active outpatient prescription entries matched to National Drug File at the originating site and may not include some items such as investigational drugs, compounds, etc. NOT INCLUDED IN THIS LIST: Medications self-entered by the patient into personal health records (i.e. Do It In Person) are NOT included in this list. Non-VA medications documented outside this [place], remote inpatient orders (regardless of status) and remote clinic medications are NOT included in this list. The patient and provider must always discuss medications the patient is taking, regardless of where the medication was dispensed or obtained. -------- OUTPT ALBUTEROL 90MCG (CFC-F) 200D ORAL INHL (Status = Active) INHALE 2 PUFFS BY MOUTH FOUR TIMES DAILY NEEDED FOR SHORTNESS OF BREATH Rx# [id number] Last Released: 03/21/24 Qty/Days Supply: Rx Expiration Date: 03/22/25 Refills Remainin Indication: FOR SHORTNESS OF BREATH OUTPT AMLODIPINE BESYLATE 5MG TAB (Status = Active/Suspended) TAKE ONE TABLET BY MOUTH ONCE DAILY FOR BLOOD PRESSURE/HEART, DO NOT TAKE WITH GRAPEFRUIT JUICE Rx# [id number] Last Released: 04/27/24 Qty/Days Supply: Rx Expiration Date: 02/14/25 Refills Remainin OUTPT ATORVASTATIN CALCIUM 80MG TAB (Status = ) TAKE ONE-HALF TABLET BY MOUTH ONCE DAILY FOR CHOLESTEROL Rx# [id number] Last Released: 02/18/24 Qty/Days Supply: Rx Expiration Date: 04/19/24 Refills Remainin OUTPT CARBOXYMETHYLCELLULOSE NA 0.5% OPH SOLN (Status = ) INSTILL 1 DROP INTO EACH EYE FOUR TIMES DAILY NEEDED FOR DRY EYE Rx# [id number] Last Released: 02/18/24 Qty/Days Supply: Rx Expiration Date: 06/03/24 Refills Remainin Indication: FOR DRY EYE Non-VA CLONAZEPAM 0.5MG TAB TAKE ONE TABLET BY MOUTH TWICE DAILY NEEDED OUTPT ESCITALOPRAM OXALATE 10MG TAB (Status = Active) TAKE ONE-HALF TABLET BY MOUTH TWICE DAILY FOR MAJOR DEPRESSIVE DISORDER FOR MOOD/DEPRESSION Rx# [id number] Last Released: 03/01/24 Qty/Days Supply: Rx Expiration Date: 12/23/24 Refills Remainin Indication: FOR MAJOR DEPRESSIVE DISORDER OUTPT FINASTERIDE 5MG TAB (Status = ) TAKE ONE TABLET BY MOUTH ONCE DAILY NEEDED FOR PROSTATE Rx# [id number] Last Released: 02/12/24 Qty/Days Supply: Rx Expiration Date: 04/12/24 Refills Remainin Non-VA FISH OIL 500MG DHA/EPA CAP,ORAL TAKE BY MOUTH ONCE DAILY OUTPT FLUTICASONE PROP 50MCG 120D NASAL INHL (Status = Active/Suspended) INSTILL 2 SPRAYS INTO EACH NOSTRIL ONCE DAILY FOR NASAL IRRITATION/INFLAMMATION MAY DECREASE TO 1 SPRAY/NOSTRIL WHEN CONTROLLED Rx# [id number] Last Released: 02/18/24 Qty/Days Supply: Rx Expiration Date: 06/17/24 Refills Remainin Indication: FOR NASAL IRRITATION/INFLAMMATION OUTPT GABAPENTIN 600MG TAB (Status = ) TAKE ONE-HALF TABLET BY MOUTH TWICE DAILY FOR NERVE PAIN Rx# [id number] Last Released: 02/18/24 Qty/Days Supply: Rx Expiration Date: 05/11/24 Refills Remainin Indication: FOR NERVE PAIN Non-VA GLUCOSAMINE CAP/TAB TAKE 1000MG BY MOUTH ONCE DAILY OUTPT LISINOPRIL 10MG TAB (Status = Active) TAKE ONE TABLET BY MOUTH ONCE DAILY TO CONTROL BLOOD PRESSURE Rx# [id number] Last Released: 04/27/24 Qty/Days Supply: Rx Expiration Date: 10/25/24 Refills Remainin Indication: FOR HIGH BLOOD PRESSURE OUTPT LOSARTAN 25MG TAB (Status = Discontinued) TAKE ONE TABLET BY MOUTH ONCE DAILY FOR BLOOD PRESSURE/HEART STOP LISINOPRIL Rx# [id number] Last Released: 03/17/24 Qty/Days Supply: Rx Expiration Date: 06/14/24 Refills Remainin Indication: FOR HIGH BLOOD PRESSURE Non-VA LYSINE CAP/TAB TAKE ONE TABLET BY MOUTH ONCE DAILY OUTPT METFORMIN HCL 500MG 24HR SA TAB (Status = ) TAKE ONE TABLET BY MOUTH ONCE DAILY FOR 7 DAYS, THEN TAKE TWO TABLETS ONCE DAILY Rx# [id number] Last Released: 02/29/24 Qty/Days Supply: Rx Expiration Date: 05/28/24 Refills Remainin Indication: DIABETES Non-VA NAPROXEN 500MG TAB TAKE ONE TABLET BY MOUTH ONCE DAILY OUTPT OMEPRAZOLE 20MG EC CAP (Status = Discontinued) TAKE ONE CAPSULE BY MOUTH TWICE DAILY FOR GASTROESOPHAGEAL REFLUX DISEASE Rx# [id number] Last Released: 01/26/24 Qty/Days Supply: 180 Rx Expiration Date: 09/23/24 Refills Remainin Indication: FOR GASTROESOPHAGEAL REFLUX DISEASE OUTPT OMEPRAZOLE 20MG EC CAP (Status = Active) TAKE ONE CAPSULE BY MOUTH TWICE DAILY FOR GASTROESOPHAGEAL REFLUX DISEASE Rx# [id number] Last Released: 04/17/24 Qty/Days Supply: [id number] Rx Expiration Date: 04/15/25 Refills Remainin Indication: FOR GASTROESOPHAGEAL REFLUX DISEASE -------- SUPPLIES -------- OUTPT ACCU-CHEK GUIDE (GLUCOSE) TEST STRIP (Status = Active) USE 1 STRIP TO TEST BLOOD SUGARS TWO TIMES A WEEK Rx# [id number] Last Released: 03/01/24 Qty/Days Supply: 50/180 Rx Expiration Date: 02/28/25 Refills Remainin OUTPT ACCU-CHEK GUIDE ME (GLUCOSE) METER (Status = ) USE METER TO TEST BLOOD SUGARS ONCE DAILY Rx# [id number] Last Released: 02/29/24 Qty/Days Supply: Rx Expiration Date: 05/28/24 Refills Remainin /harpal/ KIKI COLLINS OD Powerhouse Electrician Signed: 06/08/2024 16:03 KIKI COLLINS [place] [facility] [place] [facility]
--- OUTSIDE RECORDS SUMMARY | 2024-07-27 11:28 | XMS_ITS | Encounter Summary ---
Author Organization [facility] Address [address] [place] [address] Care Team Providers Care Mechanical Systems Designer Name Role Phone Monique Wan DO Primary Care Pro vider Unavailable Abdoulaye Mott DO Primary Care Provider Edna Curtis MD Primary Care Provider [phone] Reason for Visit * Reason Onset Date Comments APPOINTMENT 04/15/2020 Encounter Details Date Type Department Care Team Description 04/15/2020 Telephone Adult Medicine [address] [address] Monique Wan DO APPOINTMENT Social History Tobacco Use Types Packs/Day Years [...] have Coronavirus / COVID-19? No / Unsure 04/16/2020 8:59 AM EST documented as of this encounter Miscellaneous Notes * Telephone Encounter - Katelynn Black - 04/15/2020 11:04 AM EST Patient is calling in, has been unsecsessful with getting through to adult medicine. He has been experiencing left ear pain for the last two weeks and has been taking drops but has had no relief. I told him that I would leave a message with adult medicine and if he did not hear back by anyone lateron this afternoon to give us a call. Please review and advise documented in this encounter Plan of Treatment Not on file documented as of this encounter Visit Diagnoses Not on filedocumented in this encounter Care Teams Mechanical Systems Designer Relationship Specialty Start Date End Date Monique Wan DO PCP - General Internal Medicine 02/15/15 10/14/20 Abdoulaye Mott DO PCP - General Internal Medicine 10/15/20 01/02/21 Edna Laird MD [address] [place] [id number] PCP - General Internal Medicine 01/03/21 documented as of this encounter
--- OUTSIDE RECORDS SUMMARY | 2024-07-27 11:28 | XMS_ITS | Patient Health Record ---
Author Organization [facility] Address [address] [place] [address] Care Team Providers Care Clay Plant Treater Name Role Phone Joanne Bejarano MD Primary Care Provider Abdoulaye Cast [phone] Allergies Allergen (clinical drug ingredient) Drug/Non Drug Allergy documented on EMR Reaction Allergy Type Onset Date Status Penicillin Unknown Drug Allergy Active peanuts (uncoded) Unknown Allergy Ac tive Reason For Referral No Information Medications Medication SIG (Take, Route, Frequency, Duration) Notes [...] NOSTRIL EVERY MORNING Nasal for 60 Not-Taking Immunizations Vaccine Route Administration Date Status Comme nts Flu vaccine no Preserv 3 and > Unknown 01/11/2017 Admin istered Influenza Unknown 01/25/2020 Administered Influenza Unknown 01/24/2021 Administered Social History Tobacco Use: Social History Observation Description Date Details (start date - stop date) Former Smoker NA - NA Tobacco Use/Smoking Question Answer Notes Patient is a former smoker How long has it been since you last smoked? > 10 years Alcohol Screen Question Answer Notes Did you have a drink containing alcohol in the p ast year? 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; sober from alcohol for 38 years Problems Problem Type SNOMED Code ICD Code Onset Dates Problem Status W/U Status Risk Notes Problem Gastro-esophage al reflux disease without esophagitis (045285980) Gastro-esophageal reflux disease without esophagitis (K21.9) Active confirmed Problem 467095080 Encounter for screening for malignant neoplasm of colon (Z12.11) Active confirmed Problem 772041643 Change in bowel habits (R19.4) Active confirmed Problem 613647417 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 Problem 83925265 Heartburn (R12) Active confirmed Problem 431768776 Gastroesophageal reflux disease without esophagitis (K21.9) Active confirmed Problem 18313339 Hiatal hernia (K44.9) Active confirmed Problem Chronic gastritis (8845977) Gastritis, chronic (K29.50) Active confirmed Problem 909139555 Long-term use of aspirin therapy (Z79.82) Active confirmed Problem 47249464 Diarrhea, unspecified type (R19.7) Active confirmed Problem 995446758 Gastroesophageal reflux disease, unspecified whether esophagitis present (K21.9) Active confirmed Plan Of Treatment Pending Test Test Name Order Date CRP [...] Coverage End Date MEDICARE OF [place] [address] [place] [address] [id number] ELIO MONTOYA Self - patient is the insured MEDEX ATTN CLAIMS [address] [place] [address] [id number] ELIO MONTOYA Self - patient is the insured Medical (General) History Medical History History ICD Code Prostate cancer 2016 with radiation jaun tments Denies [place],DM,CVA,Lung disease,renal dise ase HTN Depression Hyperlipidemia Negative [...]
--- OUTSIDE RECORDS SUMMARY | 2024-07-27 11:28 | XMS_ITS | Encounter Summary ---
Author Organization [employer] [facility] Address [address] [place] [address] Care Team Providers Care Prints And Drawings Curator Name Role Phone Abdoulaye Mott DO Primary Care Provider Minna Edna Rudd MD Primary Care Provider [phone] Encounter Details Date Type Department Care Team Description 11/26/2020 Microcomputer Technician Report Medical Records [address] [place] [address] Merissa Catalan Social History Tobacco Use Types Packs/Day Years [...] have Coronavirus / COVID-19? No / Unsure 11/14/2020 8:53 AM EDT documented as of this encounter Plan of Treatment Not on file documented as of this encounter Visit Diagnoses Not on filedocumented in this encounter Care Teams Prints And Drawings Curator Relationship Specialty Start Date End Date Abdoulaye Mott DO PCP - General Internal Medicine 10/15/20 01/02/21 Edna Laird MD [address] [place] [address] PCP - General Internal Medicine 01/03/21 documented as of this encounter
--- OUTSIDE RECORDS SUMMARY | 2024-07-27 11:28 | XMS_ITS | Encounter Summary ---
Author Name [facility] Organization [facility] [place] Address [address] [place] [address] Care Team Providers Care Mop Machine Operator Name Role Phone STEPHON UGARTE Primary [...] SUPPLEMEN ANTWAN MEDEX 2 Apr 26, 2017 [id number] [phone] ELIO CORTES PATIENT ANTHEM BCBS OF [place] MEDICARE SUPPLEMEN ANTWAN COH RETIR EMENT Apr 26, 2017 [id number] ELIO CORTES PATIENT [place] MED[place] SUPPLEMEN ANTWAN MEDEX 2 Apr 26, 2017 [id number] ELIO CORTES [place] SUPPLEMEN ANTWAN MEDEX 2 Apr 26, 2017 [id number] ELIO CORTES PAT[place] SUPPLEMEN ANTWAN MEDEX 2 Apr 26, 2017 [id number] [phone] ELIO CORTES PATIENT MEDICARE (WNR) MEDICARE (M) PART B Oct 24, 2012 PART B [id number] ELIO CORTES PATIENT MEDICARE (WNR) MEDICARE (M) PART A Oct 24, 2012 PART A [id number] ELIO CORTES PATIENT MEDICARE (WNR) MEDICARE (M) PART A Oct 24, 2012 PART A [id number] ELIO CORTES PATIENT MEDICARE (WNR) MEDICARE (M) PART B Oct 24, 2012 PART B [id number] ELIO CORTES PATIENT MEDICARE (WNR) MEDICARE (M) PART A Oct 24, 2012 PART A [id number] [phone] ELIO CORTES PATIENT MEDICARE (WNR) MEDICARE (M) PART B Oct 24, 2012 PART B [id number] ELIO CORTES PATIENT Selected Encounter This section includes the information on record at [place] for the Encounter. Date/Time Encounter Type Encounter Description Reason Pro vider Source September 17, 2023 03:09 PM Outpatient Encounter ADMIN PAT ACTIVTIES (MASNONCT) IHE Encounter Template Text not used by [place] Plan of Treatment: Future Appointments (+ 6 [...] 25, 2023 08:30 AM [place] [facility] [place] [facility] Nov 23, 2023 01:00 PM AMBULATORY - MEDICINE [facility] [place] [facility] Dec 06, 2023 08:30 AM [facility] [place] [facility] Dec 24, 2023 02:00 PM [place] [facility] [facility] Dec 28, 2023 02:45 PM AMBULATORY [facility] Dec 31, 2023 02:00 PM [place] [facility] [facility] Jan 06, 2024 03:00 PM [place] [facility] Jan 14, 2024 02:30 PM [place] [facility] [facility] Jan 18, 2024 11:30 AM AM[facility]ULATORY [facility] Feb 24, 2024 02:30 PM [facility] Advance Directives: All historical and current [...] COSIGNER: URGENCY: STATUS: COMPLETED Date: August Division: [place] Pt referred by Pharmacy Call Center for medication renewal: Medications requested: [id number] OMEPRAZOLE 20MG EC CAP Defer to primary care provider To be mailed . Please review and renew if appropriate. *This note was generated by [facility]/[place] Pharmacy Customer Care. If you have any questions or need assistance, do not contact this author. Please refer all questions to your local, on-site pharmacy departments. /harpal/ Loraine HERNANDES CPhT Mobile Engineer, [place]/Pharmacy Customer Care Signed: 09/17/2023 15:09 Receipt Acknowledged By: 09/23/2023 12:29 /es/ STEPHON UGARTE MD PHYSICIAN 09/17/2023 15:56 /es/ EZIO ARMENTA,RN REGISTERED NURSE for [facility]
--- OUTSIDE RECORDS SUMMARY | 2024-07-27 11:28 | XMS_ITS ---
Author Organization [facility] Address [address] [place] [address] Care Team Providers Care Compensation/Benefits Specialist Name Role Phone Joanne Bejarano MD Primary Care Provider Abdoulaye Cast [phone] REASON FOR VISIT gerd, timmons's, heartburn Problems Problem Type SNOMED Code ICD Code Onset Dates Problem Status W/U Status Risk Notes Problem Gastro-esophagea l reflux disease without esophagitis (721981309) Gastro-esophage al reflux disease without esophagitis (K21.9) Active confirmed Problem Chronic gastritis (3722837) Gastritis, chronic (K29.50) Active confirmed Encounters Encounter Location Date Provider Diagnosis [facility] Outpatient [address] [place], [place] [id number] 06/21/2023 Abdoulaye Ronquillo Gastro-esophageal reflux disease without esophagitis K21.9 ; Other specified disease of esophagus K22.89 ; Hiatal hernia K44.9 and Gastritis, chronic K29.50 Assessments Encounter Date Diagnosis (ICD Code) Assessment Notes Treatment Notes Treatment Clinical Notes Section Notes 06/21/2023 Gastro-esophagea l reflux disease without esophagitis (ICD-10 - K21.9) 06/21/2023 Other specified disease of esophagus (ICD-10 - K22.89) 06/21/2023 Hiatal hernia (ICD-10 - K44.9) 06/21/2023 Gastritis, chronic (ICD-10 - K29.50) Plan Of Treatment No Information Progress Notes * MAO HILL:11/02 (78 yo M)Acc No.[id number]:06/21/2023 EGD/MAC Patient:?ELIO HILL Provider:?Abdoulaye Ronquillo MD :1945???Age:77 Y???Sex:Male Dharmesh e:06/21/2023 Address:[facility] [address], [id number] Pcp:Joanne Bejarano MD Subjective: * Chief Complaints: * ???1. Gerd, timmons's, heart burn. * Medical History:? Objective: * Vitals:? Assessment: * Assessment: 1.?Gastro-esophageal reflux disease without esophagitis - K21.9 (Primary)???2.?Other specified disease of esophagus - K22.89???3.?Hiatal hernia - K44.9???4.?Gastritis, chronic - K29.50??? Plan: * Treatment: * Procedure Codes:?04051 UPPER GI ENDOSCOPY, BIOPSY * * The named appointment provid er may or may not be the originator of this progress note, and it is not deemed complete until electronically signed by the appointment provider. Sign off status: Pending * Provider:?Abdoulaye Ronquillo MD Date:? 024 Generated for Lizbet rogers/Mine/Terencesmitting on:?07/27/2024 11:28 AM EDT
--- OUTSIDE RECORDS SUMMARY | 2024-07-27 11:28 | XMS_ITS | Encounter Summary ---
Author Organization [employer] [facility] Address [address] [place] [address] Care Team Providers Care Salt Manager Name Role Phone Monique Wan DO Primary Care Pro vider Unavailable Abdoulaye Mott DO Primary Care Provider Minna Edna Rudd MD Primary Care Provider [phone] Encounter Details Date Type Department Care Team Description 02/19/2017 V/St[employer] Landing Signal Officer Report Medical Records [address] [place] [address] Juventino Varela Social History Tobacco Use Types Packs/Day Years [...] on filedocumented in this encounter Care Teams Salt Manager Relationship Specialty Start Date End Date Monique Wan DO PCP - General Internal Medicine 02/15/15 10/14/20 Abdoulaye Mott DO PCP - General Internal Medicine 10/15/20 01/02/21 Edna Laird MD [address] [place], [place] [id number] PCP - General Internal Medicine 01/03/21 documented as of this encounter
--- OUTSIDE RECORDS SUMMARY | 2024-07-27 11:28 | XMS_ITS | Encounter Summary ---
Author Organization [facility] Address [address] [place] [address] Care Team Providers Care Tool And Die Supervisor Name Role Phone Javier Boland MD Primary Care Provider Minna vailable Sahil Roque MD Primary Care Provider [phone] Jim Blue MD Primary Care Provider Unavail able Monique Wan DO Primary Care Pro vider Unavailable Abdoulaye Mott DO Primary Care Provider Minna vailable Edna Laird MD Primary Care Provider [phone] Encounter Details Date Type Department Care Team Description 06/28/2006 Hospital Medical Records [address] [place] [address] Abdoulaye Ronquillo MD Social History Tobacco Use Types Packs/Day Years [...] on filedocumented in this encounter Care Teams Tool And Die Supervisor Relationship Specialty Start Date End Date Javier Boland MD PCP - General 01/23/10 04/25/14 Sahil Roque MD [address] [place] [address] [id number] PCP - General 02/17/00 01/22/10 Jim Blue MD [address] [place] [address] PCP - General Internal Medicine 04/27/14 02/14/15 Monique Wan, [address] [place] [address] PCP - General Internal Medicine 02/15/15 10/14/20 Abdoulaye Mott DO [address] [place] [address] PCP - General Internal Medicine 10/15/20 01/02/21 Edna Laird MD [address] [place] [address] PCP - General Internal Medicine 01/03/21 documented as of this encounter
--- OUTSIDE RECORDS SUMMARY | 2024-07-27 11:28 | XMS_ITS | Encounter Summary ---
Author Name [facility] Organization [facility] [place] Address [address] [place] [address] Care Team Providers Care Forest Resource Specialist Name Role Phone STEPHON UGARTE Primary [...] SUPPLEMEN ANTWAN MEDEX 2 Apr 26, 2017 [id number] [phone] ELIO CORTES PATIENT ANTHEM BCBS OF CT MEDICARE SUPPLEMEN ANTWAN COH RETIR EMENT Apr 26, 2017 [id number] ELIO CORTES PATIENT [place] MED[place] SUPPLEMEN ANTWAN MEDEX 2 Apr 26, 2017 [id number] ELIO CORTES PATIENT [place] SUPPLEMEN ANTWAN MEDEX 2 Apr 26, 2017 [id number] [phone] ELIO CORTES PATIENT [place] MED[place] SUPPLEMEN ANTWAN MEDEX 2 Apr 26, 2017 [id number] ELIO CORTES PATIENT MEDICARE (WNR) MEDICARE (M) PART A Oct 24, 2012 PART A [id number] ELIO CORTES PATIENT MEDICARE (WNR) MEDICARE (M) PART B Oct 24, 2012 PART B [id number] [phone] ELIO CORTES PATIENT MEDICARE (WNR) MEDICARE (M) PART A Oct 24, 2012 PART A [id number] ELIO CORTES PATIENT MEDICARE (WNR) MEDICARE (M) PART B Oct 24, 2012 PART B [id number] ELIO CORTES PATIENT MEDICARE (WNR) MEDICARE (M) PART A Oct 24, 2012 PART A [id number] ELIO CORTES PATIENT MEDICARE (WNR) MEDICARE (M) PART B Oct 24, 2012 PART B [id number] ELIO CORTES PATIENT Selected Encounter This section includes the information on record at [place] for the Encounter. Date/Time Encounter Type Encounter Description Reason Pro vider Source Apr 10, 2024 10:25 AM Outpatient Encounter ADMIN PAT ACTIVTIES (MASNONCT) IHE Encounter Template Text not used by [place] Plan of Treatment: Future Appointments (+ 6 months) and Future Tests (+/- 45 days) The Plan of Treatment section includes future care activities for the patient from all [place] treatmentfacilities. This section includes future appointments and future orders which are active, pending or scheduled. Future Appointments This section includes appointments that were scheduled to occur 6 months from the date of the Encounter, up to a maximum of 20 appointments. The data comes from all [place] treatment facilities. Appointment Date/Time Appointment Type Appointme nt Facility Name Apr 11, 2024 02:00 PM [facility] [place] [facility] Jun 06, 2024 11:00 AM AMBULATORY - MEDICINE [facility] Jun 08, 2024 03:30 PM AMBULATORY MEDICINE [facility] Jun 09, 2024 11:15 AM AMBULATORY - MEDICINE [facility] Advance Directives: All historical and current Section Date Range: From patient's date of to the date document was created. This section includes ALL of a patient's completed or amended [place] Advance and Rescinded Directives. The entries below indicate that a directive exists for the patient, but an actual copy is not included with this document. The data comes from all [place] facilities. Date Advance Directives Provider Source Apr [...] COSIGNER: URGENCY: STATUS: COMPLETED Date: Mar Division: [place] Pt referred by Pharmacy Call Center for medication renewal: Non-controlled/maintenan ce medication Medications requested: [id number] OMEPRAZOLE 20MG EC CAP Defer to primary care provider To be mailed. Please review and renew if appropriate. *This note was generated by [facility]/[place] Pharmacy Customer Care. If you have any questions or need assistance, do not contact this author. Please refer all questions to your local, on-site pharmacy departments. /harpal/ Skyla Cox CPhT Shoe Repair Cobbler, [place]/Pharmacy Customer Care Signed: 04/10/2024 10:25 Receipt Acknowledged By: 04/11/2024 12:23 /es/ Veronica Carr RN Registered Nurse for BAMBI BARRERA 04/14/2024 10:22 /es/ MALACHI MORALES NP NURSE PRACTITIONER SKYLA [place] [facility]
--- OUTSIDE RECORDS SUMMARY | 2024-07-27 11:28 | XMS_ITS ---
Author Organization [facility] Address [address] [place] [address] Care Team Providers Care Business Operations Coordinator Name Role Phone Joanne Bejarano MD Primary Care Provider Abdoulaye Cast [phone] Allergies Allergen (clinical drug ingredient) Drug/Non Drug Allergy documented on EMR Reaction Allergy Type Onset Date Status Penicillin Unknown Drug Allergy Active peanuts (uncoded) Unknown Allergy Ac tive REASON FOR VISIT Patient presents today for a change in bowel habit Medications Medication SIG (Take, Route, Frequency, Duration) [...] thr ee a day Active KlonoPIN Active Social History Tobacco Use: Social History Observation [...] Problem Status W/U Status Risk Notes Problem [id number] Heartburn (R12) Active confirmed Vital Signs Temperature 97.1 degrees Fahrenheit 03/30/20 23 Blood pressure systolic 00 mm Hg 03/30/20 23 Blood pressure diastolic 00 mm Hg 023 Height 71 in 03/30/2023 Weight 230 lbs 03/30/2023 BMI 32.07 kg/m2 03/30/2023 Encounters Encounter Location Date Provider Diagnosis [facility] [address] [place] [address] 03/30/2023 Abdoulaye Ronquillo Gastroesophageal ref lux disease, unspecified whether esophagitis present K21.9 ; 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 His previous change in bowel habits has seemingly resolved again. He is not having any further worrisome symptoms in that regard. Given his good clinical appearance and negative colonoscopy in 2020, I don't think we need to investigate that at this time. I advised him to observe things and to try to stay on a healthy and high-fiber diet to keep his bowel movements as regular as possible. In regard to his worsening reflux, underlying history of Carter's esophagus, and refractory symptoms to 20 mg of omeprazole, I have recommended a followup upper endoscopy for the early part of 2023 as that will be almost 3 years since the last upper endoscopy. I shall also start him on 40 mg of omeprazole daily. I did advise him to try to eat carefully and minimize caffeine. Full consent has been obtained for the endoscopy, including risks of bleeding and perforation. The procedure will be done with monitored anesthesia care. Elio was comfortable with this plan. Thank you again for allowing me to participate in Elio's care. I shall continue to keep you advised of his progress. 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 His previous change in bowel habits has seemingly resolved again. He is not having any further worrisome symptoms in that regard. Given his good clinical appearance and negative colonoscopy in 2020, I don't think we need to investigate that at this time. I advised him to observe things and to try to stay on a healthy and high-fiber diet to keep his bowel movements as regular as possible. In regard to his worsening reflux, underlying history of Carter's esophagus, and refractory symptoms to 20 mg of omeprazole, I have recommended a followup upper endoscopy for the early part of 2023 as that will be almost 3 years since the last upper endoscopy. I shall also start him on 40 mg of omeprazole daily. I did advise him to try to eat carefully and minimize caffeine. Full consent has been obtained for the endoscopy, including risks of bleeding and perforation. The procedure will be done with monitored anesthesia care. Elio was comfortable with this plan. Thank you again for allowing me to participate in Elio's care. I shall continue to keep you advised of his progress. 03/30/2023 Heartburn (ICD-10 - R12) Overall, Elio appears well. His previous change in bowel habits has seemingly resolved again. He is not having any further worrisome symptoms in that regard. Given his good clinical appearance and negative colonoscopy in 2020, I don't think we need to investigate that at this time. I advised him to observe things and to try to stay on a healthy and high-fiber diet to keep his bowel movements as regular as possible. In regard to his worsening reflux, underlying history of Carter's esophagus, and refractory symptoms to 20 mg of omeprazole, I have recommended a followup upper endoscopy for the early part of 2023 as that will be almost 3 years since the last upper endoscopy. I shall also start him on 40 mg of omeprazole daily. I did advise him to try to eat carefully and minimize caffeine. Full consent has been obtained for the endoscopy, including risks of bleeding and perforation. The procedure will be done with monitored anesthesia care. Elio was comfortable with this plan. Thank you again for allowing me to participate in Elio's care. I shall continue to keep you advised of his progress. Plan Of Treatment Medication Medication Name Sig Start Date Stop Date Notes Omeprazole 40 MG 1 Orally Every morning for 30 day(s) 08/2022 Future Test Test Name Order Date UPPER GI ENDOSCOPY 03/30/2023 Next Appt Details Follow Up: prn, Reason: Progress Notes * ANTWAN HILLOB:[birth year] (77 yo M)Acc No.[id number]:03/30/2023 Progress Notes Patient:?ELIO HILL Provider:?Abdoulaye Ronquillo MD :1945???Age:77 Y???Sex:Male Dharmesh e:03/30/2023 [facility] [address] [facility] Pcp:Joanne Bejarano MD Subjective: * Chief Complaints: * ???Patient presents today fo r a change in bowel habit * HPI: ???incontinence:? I saw Elio in the office today for evaluation of worsening heartburn and reflux in association with his underlying history of Carter's esophagus. ?I last saw Elio in February of 2021. At that time we reviewed his upper endoscopy and colonoscopy from earlier that year. At the time of his upper endoscopy I had increased his omeprazole from 20 mg to 40 mg with good relief of heartburn at that time. However, he was eventually able to come off the omeprazole as he lost some weight and was watching his diet. He has recently been having some increasing heartburn and has been back on omeprazole 20 mg daily but without complete relief. He denies any dysphagia, early satiety, nausea, nor vomiting. He does have at least 2 cups of coffee per day and will occasionally have spicy food that exacerbates the reflux. An abdominal ultrasound in April was negative for gallstones. ?Earlier this year he had been having some change in bowel habits with some increased bowel frequency but that has presently resolved. He had been having similar symptoms in 2020 when he underwent a colonoscopy that was unremarkable and then those symptoms resolved at that time as well. He denies any hematochezia nor melena. He denies any abdominal pain or jaundice. His weight does fluctuate but he has not lost any significant amount of weight. ?Labs from earlier this year revealed normal LFTs and a normal CBC. * ROS:?General/Constitutional:?Change in appetite?denies.?Chills?denies.?Fatigue?denies.?Ophthalmologic:?Comments?all negative.?ENT:?Comments?all negative.?Respiratory:?hemoptysis?denies.?Cough?denies.?Cardiovascular:?Chest pain?denies.?Orthopnea?denies.?Gastrointestinal:?Comments?See HPI for details.?Genitourinary:?Hematuria?denies.?Dysuria?denies.?Musculoskeletal:?Painful joints?denies.?Weakness?denies.?Skin:?Itching?denies.?Rash?denies.?Neurologic:?Headache?denies.?Seizures?denies.?Psychiatric:?Comments?all negative.? * Medical History:? * Surgical History:?Skin cance r removals--basal cell/squamous cell * Hospitalization/Major Diagno stic Procedure:?No Hospitalization History. * Family History:?Father: dece ased, diagnosed with Heart disease.?Mother: , diagnosed with Heart disease, HTN (hypertension).? No colorectal cancer. * Social History:?Tobacco Use:?Tobacco Use/Smoking?Patient is a?former smoker,?How long has it been since you last smoked??> 10 years.?Drugs/Alcohol:?Alcohol Screen?Did you have a drink containing alcohol in the past year??No,?Points?0,?Interpretation?Negative.?Miscellaneous:?Marital status: . Occupation: Retired/works one day a week. ???Nonsmoker >10 years; sober from alcohol for 38 years. * Medications:?TakingKlonoPIN Lexapro Gabapentin 300 MG Capsule 1 capsule Orally three a dayamLODIPine Besylate 5 MG Tablet 1 tablet Orally Once a dayFinasteride 5 MG Tablet 1 tablet Orally Once a dayOmeprazole 40 MG Capsule Delayed Release 1 every am Orally Once a dayLisinopril 5 MG Tablet Oral busPIRone HCl 10 MG Tablet Oral Atorvastatin Calcium 20 MG Tablet 1 tablet Orally Once a dayNaproxen Sodium 220 MG Tablet 1 tablet with food or milk as needed Orally every 12 hrsTaking KlonoPIN Taking Lexapro Taking Gabapentin 300 MG Capsule 1 capsule Orally three a dayTaking amLODIPine Besylate 5 MG Tablet 1 tablet Orally Once a dayTaking Finasteride 5 MG Tablet 1 tablet Orally Once a dayTaking Omeprazole 40 MG Capsule Delayed Release 1 every am Orally Once a dayTaking Lisinopril 5 MG Tablet Oral Taking busPIRone HCl 10 MG Tablet Oral Taking Atorvastatin Calcium 20 MG Tablet 1 tablet Orally Once a dayTaking Naproxen Sodium 220 MG Tablet 1 tablet with food or milk as needed Orally every 12 hrsNot-Taking/PRNGlucosamine 500 MG Capsule 2 capsule with a meal Orally Once a dayFluticasone Propionate 50 MCG/ACT Suspension SHAKE WELL AND ADMINISTER 1 SPRAY INTO EACH NOSTRIL EVERY MORNING Nasal Loratadine 10 MG Tablet TAKE 1 TABLET BY MOUTH DAILY Oral Fluorouracil 5 % Cream 1 application Externally Twice a dayNot-Taking/PRN Glucosamine 500 MG Capsule 2 capsule with a meal Orally Once a dayNot-Taking/PRN Fluticasone Propionate 50 MCG/ACT Suspension SHAKE WELL AND ADMINISTER 1 SPRAY INTO EACH NOSTRIL EVERY MORNING Nasal Not-Taking/PRN Loratadine 10 MG Tablet TAKE 1 TABLET BY MOUTH DAILY Oral Not-Taking/PRN Fluorouracil 5 % Cream 1 application Externally Twice a dayDiscontinuedLysine 500 MG Tablet 1 Orally qdclonazePAM 0.5 MG Tablet (Schedule IV Drug) TAKE 1 TABLET BY MOUTH TWICE DAILY Oral prnEscitalopram Oxalate 5 MG Tablet 1 tablet Orally bidMometasone Furoate 0.1 % Ointment 1 application Externally Once a dayKetoconazole 2 % Cream 1 application Externally Once a dayHydrocortisone Valerate 0.2 % Cream 1 application Externally Once a dayMedication List reviewed and reconciled with the patientDiscontinued Lysine 500 MG Tablet 1 Orally qdDiscontinued clonazePAM 0.5 MG Tablet (Schedule IV Drug) TAKE 1 TABLET BY MOUTH TWICE DAILY Oral prnDiscontinued Escitalopram Oxalate 5 MG Tablet 1 tablet Orally bidDiscontinued Mometasone Furoate 0.1 % Ointment 1 application Externally Once a dayDiscontinued Ketoconazole 2 % Cream 1 application Externally Once a dayDiscontinued Hydrocortisone Valerate 0.2 % Cream 1 application Externally Once a dayMedication List reviewed and reconciled with the patient * Allergies:?peanutsPenicillin yes[Allergies Verified] Objective: * Vitals:?Wt: 230 lbs, Ht: 71 in, BMI:32.07 Index, BP: 00/00 mm Hg, Temp: 97.1. * Examination: ???General Examination: ?GENERAL APPEARANCE:?pleasant, well nourished, well developed, in no acute distress.?EYES:?sclera non-icteric.?ORAL CAVITY:?mucosa moist.?NECK/THYROID:?no cervical lymphadenopathy, neck supple.?SKIN:?nonjaundiced, no spider angiomata.?HEART:?S1, S2 normal.?LUNGS:?clear to auscultation bilaterally.?ABDOMEN:?normal bowel sounds, no guarding or rigidity, no guarding or rigidity, no masses palpable, soft, nontender, nondistended.?EXTREMITIES:?no edema.?NEUROLOGIC:?alert and oriented.? 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 Overall, Elio appears well . His previous change in bowel habits has seemingly resolved again. He is not having any further worrisome symptoms in that regard. Given his good clinical appearance and negative colonoscopy in 2020, I don't think we need to investigate that at this time. I advised him to observe things and to try to stay on a healthy and high-fiber diet to keep his bowel movements as regular as possible. In regard to his worsening reflux, underlying history of Carter's esophagus, and refractory symptoms to 20 mg of omeprazole, I have recommended a followup upper endoscopy for the early part of 2023 as that will be almost 3 years since the last upper endoscopy. I shall also start him on 40 mg of omeprazole daily. I did advise him to try to eat carefully and minimize caffeine. Full consent has been obtained for the endoscopy, including risks of bleeding and perforation. The procedure will be done with monitored anesthesia care. Elio was comfortable with this plan. Thank you again for allowing me to participate in Elio's care. I shall continue to keep you advised of his progress. Plan: * Treatment: 2.?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?Procedure: UPPER GI ENDOSCOPY (Ordered for 03/30/2023)* with MACsched for 06/21/23 at 10:30 am 3.?Heartburn?Procedure: UPPER GI ENDOSCOPY (Ordered for 03/30/2023)* with MACsched for 06/21/23 at 10:30 am * Procedure Codes:?3017F COLOR ECTAL CA SCREEN DOC [id number] TOBACCO [id number] BP SCR NOT PRFRM REC REASON NOS * Preventive Medicine:? ??Counseling:?Care goal follow-up plan:?Above Normal BMI Follow-up?Giving encouragement to exercise,?BMI management provided?Yes.? * Follow Up:?prn * * Sign off status: Completed true * Provider:?Abdoulaye Ronquillo MD Date:? 023 Generated for Lizbet rogers/Mine/Sivaitting on:?07/27/2024 11:27 AM EDT History and Physical Notes * HPI (History of Present Illness) Category Sub-Category Detail Notes Category Not es incontinence I saw Elio in the office today for evaluation of worsening heartburn and reflux in association with his underlying history of Carter's esophagus. I last saw Elio in February of 2021. At that time we reviewed his upper endoscopy and colonoscopy from earlier that year. At the time of his upper endoscopy I had increased his omeprazole from 20 mg to 40 mg with good relief of heartburn at that time. However, he was eventually able to come off the omeprazole as he lost some weight and was watching his diet. He has recently been having some increasing heartburn and has been back on omeprazole 20 mg daily but without complete relief. He denies any dysphagia, early satiety, nausea, nor vomiting. He does have at least 2 cups of coffee per day and will occasionally have spicy food that exacerbates the reflux. An abdominal ultrasound in April was negative for gallstones. Earlier this year he had been having some change in bowel habits with some increased bowel frequency but that has presently resolved. He had been having similar symptoms in 2020 when he underwent a colonoscopy that was unremarkable and then those symptoms resolved at that time as well. He denies any hematochezia nor melena. He denies any abdominal pain or jaundice. His weight does fluctuate but he has not lost any significant amount of weight. Labs from earlier this year revealed normal LFTs and a normal CBC. Examination Category Sub-Category Detail Notes Category Not es General Examination GENERAL APPEARANCE: pleasant , well [...]
--- OUTSIDE RECORDS SUMMARY | 2024-07-27 11:29 | XMS_ITS | Encounter Summary ---
Author Organization [facility] [employer] [facility] Address [address] [place] [address] Care Team Providers Care Veneer Sander Name Role Phone Monique Wan DO Primary Care Pro vider Unavailable Abdoulaye Mott DO Primary Care Provider Minna Edna Rudd MD Primary Care Provider [phone] Encounter Details Date Type Department Care Team Description 08/13/2016 [employer] Operator Report Medical Records [address] [place] [address] [employer] Social History Tobacco Use Types Packs/Day Years Used Date Smoking Tobacco: Former Smokeless Tobacco: Never Comments:quit 1999, after [employer] for at [...] on filedocumented in this encounter Care Teams Veneer Sander Relationship Specialty Start Date End Date Monique Wan DO PCP - General Internal Medicine 02/15/15 10/14/20 Abdoulaye Mott DO PCP - General Internal Medicine 10/15/20 01/02/21 Edna Laird MD [address] [place], [place] [id number] PCP - General Internal Medicine 01/03/21 documented as of this encounter
--- OUTSIDE RECORDS SUMMARY | 2024-07-27 11:29 | XMS_ITS | Encounter Summary ---
Author Organization [facility] [employer] [facility] Address [address] [place] [address] Care Team Providers Care Manager Credit Name Role Phone Monique Wan DO Primary Care Pro vider Unavailable Abdoulaye Mott DO Primary Care Provider Minna Edna Rudd MD Primary Care Provider [phone] Encounter Details Date Type Department Care Team Description 03/24/2018 Solderer Torch Report Medical Records [address] [place] [address] Juventino Varela Social History Tobacco Use Types [...] on filedocumented in this encounter Care Teams Manager Credit Relationship Specialty Start Date End Date Moniuqe Wan DO PCP - General Internal Medicine 02/15/15 10/14/20 Abdoulaye Mott DO PCP - General Internal Medicine 10/15/20 01/02/21 Edna Laird MD [address] [place], [place] [id number] PCP - General Internal Medicine 01/03/21 documented as of this encounter
--- OUTSIDE RECORDS SUMMARY | 2024-07-27 11:29 | XMS_ITS | Encounter Summary ---
Author Organization [facility] Address [address] [place] [address] Care Team Providers Care Junior Loan Processor Name Role Phone Javier Boland MD Primary Care Provider Minna Jim Kowalski MD Primary Care Provider Unavail able Monique Wan DO Primary Care Pro vider Unavailable Abdoulaye Mott DO Primary Care Provider Minna Edna Rudd MD Primary Care Provider [phone] Encounter Details Date Type Department Care Team Description 02/04/2012 Release of Information Medical Records [address] [place] [id number] Abstract, Provider Social History Tobacco Use Types Packs/Day Years Used Date Smoking Tobacco: Former Comments:quit 1999, after [employer] [...] on filedocumented in this encounter Care Teams Junior Loan Processor Relationship Specialty Start Date End Date Javier Boland MD PCP - General 01/23/10 04/25/14 Jim Blue MD PCP - General Internal Medicine 04/27/14 02/14/15 Monique Wan DO PCP - General Internal Medicine 02/15/15 10/14/20 Abdoulaye Mott DO PCP - General Internal Medicine 10/15/20 01/02/21 Edna Laird MD [address] [place] [id number] PCP - General Internal Medicine 01/03/21 documented as of this encounter
--- OUTSIDE RECORDS SUMMARY | 2024-07-27 11:29 | XMS_ITS | Encounter Summary ---
Author Organization [facility] Address [address] [place] [address] Care Team Providers Care Contact And Service Clerks Supervisor Name Role Phone Monique Wan DO Primary Care Pro vider Unavailable Abdoulaye Mott DO Primary Care Provider Edna Curtis MD Primary Care Provider [phone] Reason for Visit * Reason Onset Date Comments refill request 05/05/2018 Encounter Details Date Type Department Care Team Description 05/05/2018 Refill Adult Medicine [address] [address] Monique Wan DO refill request Social History Tobacco Use Types Packs/Day Years [...] encounter Miscellaneous Notes * Telephone Encounter - Patricia Villarreal M.A. - 05/05/2018 3:42 PM EST Lab Results Component Value Date CHOL 158 12/24/2017 LDL 88 12/24/2017 HDL 52 12/24/2017 TRIG 94 12/24/2017 Dylan - 01/03/2018 Nov - 06/17/2018 Ok to wait for Wednesday * Telephone Encounter - Dorothea Matthews - 05/05/2018 3:08 PM EST Patient would like script to be: E-PRESCRIBED/FAXED TO PHARMACY WHEN WAS THE PATIENT'S LAST APPOINTMENT IN ADULT MEDICINE? 01/03/18 WHEN WAS THE LAST TIME THE PATIENT SAW THEIR PCP? Same as above Does patient have an upcoming appointment? Yes 06/17/18 (THE MEDICATION REQUESTED IS ON THE MED LIST ABOVE) All of the medications requested were on the CURRENT MEDS list Did you check the Pharmacy information above?: YES Patient wants: 90 -day supply Is this a mail order prescription request ? YES If the refill is from a FAXED refill request what is the RX # listed on the fax? N/A Patients current insurance carrier is: [place] / [place] / Product Type: MEDICARE [id number] documented in this encounter Plan of Treatment Not on file documented as of this encounter Visit Diagnoses Not on filedocumented in this encounter Care Teams Contact And Service Clerks Supervisor Relationship Specialty Start Date End Date Monique Wan DO PCP - General Internal Medicine 02/15/15 10/14/20 Abdoulaye Mott DO PCP - General Internal Medicine 10/15/20 01/02/21 Edna Laird MD [address] [place] [id number] PCP - General Internal Medicine 01/03/21 documented as of this encounter
--- OUTSIDE RECORDS SUMMARY | 2024-07-27 11:29 | XMS_ITS | Encounter Summary ---
Author Organization [facility] [employer] [facility] Address [address] [place] [address] Care Team Providers Care Pot Sander Name Role Phone Monique Wan DO Primary Care Pro vider Unavailable Abdoulaye Mott DO Primary Care Provider Minna Edna Rudd MD Primary Care Provider [phone] Encounter Details Date Type Department Care Team Description 04/13/2019 [facility] Medical Records [address] [place] [address] Abstract, Provider Social History Tobacco Use Types [...] on filedocumented in this encounter Care Teams Pot Sander Relationship Specialty Start Date End Date Monique Wan DO PCP - General Internal Medicine 02/15/15 10/14/20 Abdoulaye Mott DO PCP - General Internal Medicine 10/15/20 01/02/21 Edna Laird MD [address] [place], [place] [phone] PCP - General Internal Medicine 01/03/21 documented as of this encounter
--- OUTSIDE RECORDS SUMMARY | 2024-07-27 11:29 | XMS_ITS | Encounter Summary ---
Author Organization [facility] Address [address] [place] [address] Care Team Providers Care Inspector Conveyor Line Name Role Phone Monique Wan DO Primary Care Pro vider Unavailable Abdoulaye Mott DO Primary Care Provider Minna Edna Rudd MD Primary Care Provider Encounter Details Date Type Department Care Team Description 09/03/2017 Car Dumper Operator Report Medical Records [address] [place] [address] Mae Vera PA-C Social History Tobacco Use Types Packs/Day Years [...] on filedocumented in this encounter Care Teams Inspector Conveyor Line Relationship Specialty Start Date End Date Monique Wan DO PCP - General Internal Medicine 02/15/15 10/14/20 Abdoulaye Mott DO PCP - General Internal Medicine 10/15/20 01/02/21 Edna Laird MD [address] [place] [address] PCP - General Internal Medicine 01/03/21 documented as of this encounter
--- OUTSIDE RECORDS SUMMARY | 2024-07-27 11:29 | XMS_ITS | Encounter Summary ---
Author Name [facility] [place] Organization [facility] [place] Address [address] [place] [address] Care Team Providers Care Production Reproduction Manager Name Role Phone STEPHON UGARTE Primary [...] SUPPLEMEN ANTWAN MEDEX 2 Apr 26, 2017 [id number] MARCIAL VILLAELIO PATIENT ANTHEM BCBS OF CT MEDICARE SUPPLEMEN ANTWAN COH RETIR EMENT Apr 26, 2017 [id number] MARCIAL VILLAELIO PATIENT [place] SUPPLEMEN ANTWAN MEDEX 2 Apr 26, 2017 [id number] ELIO CORT[place] SUPPLE[place] ANTWAN MEDEX 2 Apr 26, 2017 [id number] ELIO CORT[place] SUPPLEMEN ANTWAN MEDEX 2 Apr 26, 2017 [id number] [phone] ELIO CORTES PATIENT MEDICARE (WNR) MEDICARE (M) PART A Oct 24, 2012 PART A [id number] [phone] ELIO CORTES PATIENT MEDICARE (WNR) MEDICARE (M) PART B Oct 24, 2012 PART B [id number] [id number] ELIO CORTES PATIENT MEDICARE (WNR) MEDICARE (M) PART A Oct 24, 2012 PART A [id number] ELIO CORTES PATIENT MEDICARE (WNR) MEDICARE (M) PART B Oct 24, 2012 PART B [id number] [phone] ELIO CORTES PATIENT MEDICARE (WNR) MEDICARE (M) PART A Oct 24, 2012 PART A [id number] [phone] ELIO CORTES PATIENT MEDICARE (WNR) MEDICARE (M) PART B Oct 24, 2012 PART B [id number] [phone] ELIO CORTES PATIENT Selected Encounter This section includes the information on record at [place] for the Encounter. Date/Time Encounter Type Encounter Description Reason Provider Source Oct 25, 2023 08:30 AM OFFICE O/P EST MOD 30 MIN PRIMARY CARE/MEDICINE ICD-10-CM Z00.01 Encounter for general adult medical exam w abnormal findings TRACIE UGARTE Julee Encounter Template Text not used by [place] Assessments - Encounter Diagnoses This section includes [...] 20 appointments. The data comes from all [place] treatment facilities. Appointment Date/Time Appointment Type Appointme nt Facility Name Nov 23, 2023 01:00 PM [facility] [place] [facility] Dec 06, 2023 08:30 AM AMBULATORY - [facility]CHIATRY [facility] [place] [facility] Dec 24, 2023 02:00 PM [facility]ULATORY [facility]IC[facility] [place] [facility] Dec 28, 2023 02:45 PM [facility] Dec 31, 2023 02:00 PM AMBULATORY - MEDICINE [facility] [place] [facility] Jan 06, 2024 03:00 PM AMBULATORY [facility] MEDICINE [facility] [place] [facility] Jan 14, 2024 02:30 PM [facility]IC[facility] [place] [facility] Jan 18, 2024 11:30 AM [facility] Feb 24, 2024 02:30 PM [place] [facility] [place] [facility] Apr 11, 2024 02:00 PM AM[place]UL[place]ORY - [place]ICINE [place] [facility] [place] [facility] Lab Results: +/- 30 days of [...] Range Comment Oct 18, 2023 11:26 AM [facility] LIPID PANEL FASTING Specimen Type: SERUM No comment entered. Ordering Provider: TRACIE UGARTE Report Released Date/Time: Oct 23, 2022 03:11 PM Reporting Lab: [facility] [address] [address] Performing Lab: [facility] [address] [facility] [address] CHOLESTEROL 156 mg/dL TRIGLYCERIDE 108 mg/dL 0-150 LDL calculated 93 mg/dL 0-129 CHOL/HDL 3.8 HDL CHOLESTEROL 41 mg/dL 40-60 Oct 18, 2023 11:26 AM [place] [facility] LIVER FUNCTION Specimen Type: SERUM No comment entered. Ordering Provider: TRACIE UGARTE Report Released Date/Time: Oct 23, 2022 03:11 PM Reporting Lab: [address] [address] Performing Lab: [address] [address] PROTEIN,TOTAL 6.5 g/dL 6.0-8.3 ALBUMIN 3.8 g/dL 3.5-5.0 ALKALINE PHOSPHATASE 79 U/L 40-150 AST 24 U/L 5-34 ALT 22 U/L BILIRUBIN, TOTAL 0.7 mg/dL 0.2-1.2 Oct 18, 2023 11:26 AM [facility] BASIC METABOLIC PANEL (fasting) Specimen Type: SERUM No comment entered. Ordering Provider: TRACIE UGARTE Report Released Date/Time: Oct 23, 2022 03:11 PM Reporting Lab: [address] [address] Performing Lab: [address] [address] UREA NITROGEN 23 mg/dL 7-25 GLUCOSE 94 mg/dL 65-100 SODIUM 139 mmol/L 135-145 POTASSIUM 4.5 mmol/L 3.5-5.0 CHLORIDE 107 mmol/L 100-110 CO2 25 meq/L 20-30 CREATININE, Serum 1.32 mg/dL 0.50-1.40 eGFR(CKD-EPI 2020) 56 mL/min L >60 Oct 18, 2023 11:26 AM [facility] HEMOGLOBIN A1C PANEL Specimen Type: BLOOD [...] Oct 23, 2022 03:11 PM Reporting [facility] [address] [facility] [address] Performing Lab: [facility] [address] [facility] [address] HEMOGLOBIN A1C 5.8 H 4.0-5.6 Oct 18, 2023 11:26 AM [facility] TSH Specimen Type: SERUM No comment entered. Ordering Provider: TRACIE UGARTE Report Released Date/Time: Oct 23, 2022 03:11 PM Reporting Lab: [facility] [address] [facility] [address] Performing Lab: [facility] [address] [facility] [address] TSH 2.10 u[IU]/mL 0.35-5.00 Oct 18, 2023 11:26 AM [facility] CBC AND DIFF (AUTO) Specimen Type: BLOOD No comment entered. Ordering Provider: TRACIE UGARTE Report Released Date/Time: Oct 23, 2022 03:11 PM Reporting Lab: [facility] [address] [facility] [address] Performing Lab: [facility] [address] [address] WBC 4.92 10*3/uL 4.50-11.00 RBC 5.27 10*6/uL [...] and tobacco- related health factors from the [place] facility where the Encounter took place. Current Smoking Status This section includes the most current smoking, or tobacco-related health factor, from the [place] facility where the Encounter took place. Date/Time Current Smoking Status Comment Facil ity Oct 25, 2023 08:30 AM VA-TOBACCO NEVER USED [facility] Tobacco Use History This section includes a history of the smoking, or tobacco-related health factors, that were collected on or before the date of the Encounter. The data comes from the [place] facility where the Encounter took place. Date/Time Smoking Status/Tobacco Use Comment F acility Mar 23, 2022 01:30 PM VA-TOBACCO NEVER USED [facility] September 12, 2020 10:30 AM VA-TOBACCO NEVER USED [facility] May 31, 2019 02:48 PM VA-TOBACCO FORMER USER [facility] May 31, 2019 02:48 PM VA-TOBACCO QUIT 5 TO < 15 YRS [facility] Advance Directives: All historical and current Section [...] an Advance Directive on file at this [facility]. No updates are needed at this time. [...] Not worried about housing near future The reports the following: Within the past 12 [...] full rights to use it throughout the [place] system. PRIMARY SCREEN RESULT: The Primary Screen [...] LPN LPN Signed: 10/25/2023 08:48 SCHUYLER CHAVEZ [facility] Oct 25, 2023 08:40 AM PHYSICIAN NOTE: [...] trend) 3. Chronic Kidney Disease Stage 3B [facility] [id number]) 4. Gastroesophageal reflux disease without esophagitis s/p [...] old MALE SERVICE CONNECTED % - 62 presents for annual visit. Noted increased weightalong [...] MD PHYSICIAN Signed: 10/25/2023 09:15 STEPHON UGARTE [facility]
--- OUTSIDE RECORDS SUMMARY | 2024-07-27 11:29 | XMS_ITS | Encounter Summary ---
Author Organization [facility] Address [address] [place] [address] Care Team Providers Care Care Coordinator Name Role Phone Monique Wan DO Primary Care Pro vider Unavailable Abdoulaye Mott DO Primary Care Provider Edna Curtis MD Primary Care Provider [phone] Reason for Visit * Reason Onset Date Comments Error 05/01/2019 Encounter Details Date Type Department Care Team Description 05/01/2019 Telephone Adult [address] [id number] Monique Wan DO Error Social History Tobacco Use Types Packs/Day Years [...] on filedocumented in this encounter Care Teams Care Coordinator Relationship Specialty Start Date End Date Monique Wan DO PCP - General Internal Medicine 02/15/15 10/14/20 Abdoulaye Mott DO PCP - General Internal Medicine 10/15/20 01/02/21 Edna Laird MD [address] [place] [id number] PCP - General Internal Medicine 01/03/21 documented as of this encounter
--- OUTSIDE RECORDS SUMMARY | 2024-07-27 11:29 | XMS_ITS | Encounter Summary ---
Author Organization [facility] Address [address] [place] [address] Care Team Providers Care Chimney Repairer Name Role Phone Jim Blue MD Primary Care Provider Unavail able Monique Wan DO Primary Care Pro vider Unavailable Abdoulaye Mott DO Primary Care Provider Minna vailable Edna Laird MD Primary Care Provider [phone] Encounter Details Date Type Department Care Team Description 06/19/2014 STONER OUT/[place] Report Medical Records [address] [place] [id number] Abstract, Provider Social History Tobacco Use Types [...] on filedocumented in this encounter Care Teams Chimney Repairer Relationship Specialty Start Date End Date Jim Blue MD PCP - General Internal Medicine 04/27/14 02/14/15 Monique Wan DO PCP - General Internal Medicine 02/15/15 10/14/20 Abdoulaye Mott DO PCP - General Internal Medicine 10/15/20 01/02/21 Edna Laird MD [address] [place] [address] [id number] PCP - General Internal Medicine 01/03/21 documented as of this encounter
--- OUTSIDE RECORDS SUMMARY | 2024-07-27 11:29 | XMS_ITS | Encounter Summary ---
[facility] Address [address] [place] [address] Care Team Providers Care Cow Puncher Name Role Phone Monique Wan DO Primary Care Pro vider Unavailable Abdoulaye Mott DO Primary Care Provider Edna Curtis MD Primary Care Provider [phone] Encounter Details Date Type Department Care Team Description 09/09/2020 Hospital Medical Records [address] [place] [id number] Abdoulaye Ronquillo MD Social History Tobacco Use [...] have Coronavirus / COVID-19? No / Unsure 08/30/2020 10:06 AM EDT documented as of this encounter Plan of Treatment Not on file documented as of this encounter Visit Diagnoses Not on filedocumented in this encounter Care Teams Cow Puncher Relationship Specialty Start Date End Date Monique Wan DO PCP - General Internal Medicine 02/15/15 10/14/20 Abdoulaye Mott DO PCP - General Internal Medicine 10/15/20 01/02/21 Edna Laird MD [address] [place] [address] PCP - General Internal Medicine 01/03/21 documented as of this encounter
--- OUTSIDE RECORDS SUMMARY | 2024-07-27 11:29 | XMS_ITS | Encounter Summary ---
Author Organization [facility] Address [address] [place] [address] Care Team Providers Care Analytical Statistician Name Role Phone Monique Wan DO Primary Care Pro vider Unavailable Abdoulaye Mott DO Primary Care Provider Minna Edna Rudd MD Primary Care Provider [phone] Encounter Details Date Type Department Care Team Description 05/06/2015 Cane Splicer Report Medical Records [address] [place] [address] Juventino Varela Social History Tobacco Use Types [...] on filedocumented in this encounter Care Teams Analytical Statistician Relationship Specialty Start Date End Date Monique Wan DO PCP - General Internal Medicine 02/15/15 10/14/20 Abdoulaye Mott DO PCP - General Internal Medicine 10/15/20 01/02/21 Edna Laird MD [address] [place], [place] [phone] PCP - General Internal Medicine 01/03/21 documented as of this encounter
--- OUTSIDE RECORDS SUMMARY | 2024-07-27 11:29 | XMS_ITS | Clinical Summary ---
Author Organization [facility] Address [address] [place] [address] Care Team Providers Care Health And Wellness Director Name Role Phone Edna Laird MD Primary Care Provider [phone] Allergies Active Allergy Reactions Severity Noted Date Comments Peanut Butter Flavor Rash/Dermatitis 12/05/2018 Peanuts Hives/Urticaria 01/16/2013 Penicillins Rash/Dermatitis 01/21/2006 Medications Medication Sig Dispensed Refills Start Date End Date Status Glucosamine HCl 1000 MG TABS Take 1 Tab by mouth daily. 0 Active Lysine 500 MG Tab Take 1 Tab by mouth daily. 0 Active mometasone (ELOCON) 0.1 % cream Apply sparingly 1 - 2 times a day to affected areas as needed ... apply before ointment 45 g 1 04/02/2020 Active fluticasone 50 MCG/ACT nasal spray SHAKE WELL AND ADMINISTER 1 SPRAY INTO EACH NOSTRIL EVERY MORNING 3 Bottle 1 04/23/2020 Active fluorouracil (EFUDEX) 5 % cream Apply sparingly to affected area on left side of face twice a day Wednesday through Wednesday x 4 weeks 40 g 1 04/25/2020 Active gabapentin (NEURONTIN) 300 MG capsule Take 1 Cap by mouth 3 times daily. 270 Cap 1 07/05/2020 Active cetirizine (ZYRTEC) 10 MG tablet Take 1 Tab by mouth at bedtime. 90 Tab 1 07/22/2020 Active clonazepam (KLONOPIN) 0.5 MG tablet Take 1 tablet by mouth 2 times daily as needed for Anxiety. 56 tablet 0 08/09/2020 Active finasteride (PROSCAR) 5 MG tablet TAKE 1 TABLET DAILY 90 tablet 1 08/14/2020 Active omeprazole (PRILOSEC) 40 MG capsule Take 1 capsule by mouth daily. 0 08/20/2020 Active atorvastatin (LIPITOR) 20 MG tablet TAKE 1 TABLET DAILY 90 tablet 1 09/06/2020 Active escitalopram (LEXAPRO) 5 MG tablet TAKE 1 TABLET TWICE A DAY 180 tablet 1 11/07/2020 Active omeprazole (PRILOSEC) 40 MG capsule Take 40 mg by mouth daily. 0 Active amlodipine (NORVASC) 5 MG tablet Take 1 tablet by mouth daily. 90 tablet 1 01/09/2021 Active lisinopril (PRINIVIL,ZESTRIL) 10 MG tablet Take 1 Tablet by mouth daily for 180 days. 90 Tablet 3 08/12/2023 Active Active Problems Problem Noted Date Hiatal hernia 01/03/2021 Sigmoid diverticulosis 01/03/2021 Overview: Colonoscopy 08/2020 Internal hemorrhoids 01/03/2021 Overview: Colonoscopy 08/2020 PVD (peripheral vascular disease) 2020 Prediabetes 08/30/2020 Obesity (BMI 30.0-34.9) 07/22/2020 Dysthymia 08/26/2017 History of prostate cancer 07/02/2016 Hypertension 12/12/2010 History of actinic keratoses 12/23/2009 Overview: Actinic Keratosis 12/03 left ear Dizziness 07/26/2009 Overview: See neurology note 06/04/09, nonspecific MRI. Anxiety 05/10/2009 Hematuria 10/25/2007 Overview: FOLLOWED BY dR. BERYL OKEEFE, ?KIDNEY CYST, REPEATED us, ct Pt now is followed by Dr. Varela, prostate biopsy, cystoscopy (-) 2008 IMO update Renal cyst 10/25/2007 Overview: US 04/02, competely negative Hyperlipidemia 01/21/2006 History of basal cell carcinoma 10/07/19 06 Overview: BCC 07/01 chest (superficial) 06/30 right shoulder (superficial/nodular) 01/28 chest 06/24 forehead(infiltrative) clavicle OD/upper lid IMO update History of squamous cell carcinoma of sk in 10/06/2005 Overview: SCC 08/03 right foot (in situ) 01/28 & 08/26 left ear Resolved Problems Problem Noted Date Resolved Date Prostate CA 03/03/2016 07/02/2016 MDD (major depressive disorder) 06/10/2011 08/26/2017 Benign prostatic hyperplasia 07/15/200811/2015 Obesity, unspecified 09/16/2006 07/22/2020 Immunizations Name Administration Dates Next Due COVID-19 (Moderna) 07/23/2020,07/02/2020 COVID-19 (Pfizer) 03/11/2021 Influenza (> 6 Months) 03/03/2016,2013,01/16/2013,01/25,02/10/2011,02/11/2010,01/18/2009 ,02/17/2008,02/14/2007 Influenza Flu (PT Reported) 02/14/2019 Influenza Vaccine-quadrivale nt 4 Years Plus 02/07/2017 Influenza vaccine high dose age 65 and over 01/31/2021,01/03/2018,01/10/2015 Pneumoccoccal(Adult) Polysac charide PPSV23 02/20/2021,07/18/2013,05/23/2007 Pneumococcal Conjugate PCV-13 02/16/2020, 016 Shingrix (Recombinant zoster vaccine) 03/29/2020 TD (STATE SUPPLIED FOR ADULT S AND CHILDREN) 01/18/2018 Tdap 05/23/2007 Zostavax 11/20/2011 Family History Medical History Relation Name Comments Alcohol Abuse Brother Tuberculosis Father [place] Mother from [place] ag e 74, stroke Relation Name Status Comments Brother (Age 70's) Father (Age 51) Mother (Age 75) Social History Tobacco Use Types Packs/Day Years Used Date Smoking Tobacco: Former Smokeless Tobacco: Former Tobacco Cessation:Counseling Given: No Comments:quit 1999, after 1PPD for at least 36 years Alcohol Use Standard Drinks/Week Comments No 0 (1 standard drink = 0.6 oz pur e alcohol) Sex Assigned at Date Recorded Not on file Job Start Date Occupation Industry Not on file Not on file Not on file Last Filed Vital Signs Vital Sign Reading Time Taken Comments Blood Pressure 148/70 08/12/2023 2:46 PM EDT Pulse 64 08/12/2023 2:46 PM EDT Temperature 37 ??C (98.6 ??F) 01/03/2021 10:04 AM EDT Respiratory Rate 16 03/17/2021 11:04 AM EST Oxygen Saturation 97% 08/12/2023 2:46 PM EDT Inhaled Oxygen Concentration - - Weight 108 kg (238 lb) 08/12/2023 2:46 PM EDT Height 180.3 cm (5' 11 ) 03/17/2021 11:04 AM EST Body Mass Index 33.19 03/17/2021 11:04 AM EST Plan of Treatment Health Maintenance Due Date Last Done Comments DEPRESSION SCREEN 01/03/2019 01/03/2018 FALL RISK ASSESSMENT 07/22/2021 07/22/2020, 12/05/2018, 06/21/2017 Covid-19 Vaccine (2022-05 4 season) 2023 03/11/2021, 07/23/2020, 07/23/2020, Additional history exists BMI CHECK/ADVISE 04/26/2024 11/07/2020, 03/2021, 04/25/2020, Additional history exists INFLUENZA (Season Ended) 2024 021, 02/14/2019, 01/03/2018, Additional history exists CHOLESTEROL SCREENING 06/28/2025 06/28/2020 , 06/13/2019, 06/10/2018, Additional history exists DTAP/TDAP/TD (4 - Td or Tdap) 09/12/2030, 01/18/2018, 05/23/2007 HEPATITIS C SCREENING Completed 07/11/2013 SHINGLES VACCINE Completed 09/12/2020, 05/2020, 03/29/2020, Additional history exists PNEUMOCOCCAL VACCINE Completed 02/20/2021, 02/16/2020, 03/03/2016, Additional history exists Advance Directives For more information, please contact: [phone] Documents on File Type Date Recorded Patient Senior Wealth Advisor Expl anation Health Care Proxy 01/03/2018 Latest Code Status on File Code Status Date Activated Date Inactivated Comments None 01/06/2018 1:52 PM health car e proxy Care Teams Health And Wellness Director Relationship Specialty Start Date End Date Edna Laird MD [address] [place] [id number] PCP - General Internal Medicine 01/03/21
--- OUTSIDE RECORDS SUMMARY | 2024-07-27 11:29 | XMS_ITS | Encounter Summary ---
Author Organization [facility] Address [address] [place] [address] Care Team Providers Care Benzene Operator Name Role Phone Edna Laird MD Primary Care Provider [phone] Encounter Details Date Type Department Care Team Description 03/04/2021 Asian Art Curator Report Medical Records [address] [place] [address] Abdoulaye Ronquillo MD Social History Tobacco Use [...] on filedocumented in this encounter Care Teams Benzene Operator Relationship Specialty Start Date End Date Edna Laird MD [address] [place] [address] [phone] PCP - General Internal Medicine 01/03/21 documented as of this encounter
--- OUTSIDE RECORDS SUMMARY | 2024-07-27 11:29 | XMS_ITS | Encounter Summary ---
Author Name [facility] Organization [facility] [place] Address [address] [place] [address] Care Team Providers Care Deburrer Name Role Phone STEPHON UGARTE Primary Care [...] SUPPLEMEN ANTWAN MEDEX 2 Apr 26, 2017 [id number] [phone] ELIO CORTES PATIENT ANTHEM BCBS OF CT MEDICARE SUPPLEMEN ANTWAN COH RETIR EMENT Apr 26, 2017 [id number] ELIO CORTES PATIENT [place] SUPPLEMEN ANTWAN MEDEX 2 Apr 26, 2017 [id number] ELIO CORT[place] SUPPLEMEN ANTWAN MEDEX 2 Apr 26, 2017 [id number] ELIO CORT[place] SUPPLEMEN ANTWAN MEDEX 2 Apr 26, 2017 [id number] ELIO CORTES PATIENT MEDICARE (WNR) MEDICARE (M) PART B Oct 24, 2012 PART B [id number] ELIO CORTES PATIENT MEDICARE (WNR) MEDICARE (M) PART A Oct 24, 2012 PART A [id number] ELIO CORTES PATIENT MEDICARE (WNR) MEDICARE (M) PART A Oct 24, 2012 PART A [id number] [phone] ELIO CORTES PATIENT MEDICARE (WNR) MEDICARE (M) PART B Oct 24, 2012 PART B [id number] [phone] ELIO CORTES PATIENT MEDICARE (WNR) MEDICARE (M) PART A Oct 24, 2012 PART A [id number] ELIO CORTES PATIENT MEDICARE (WNR) MEDICARE (M) PART B Oct 24, 2012 PART B [id number] ELIO CORTES PATIENT Selected Encounter This section includes the information on record at [place] for the Encounter. Date/Time Encounter Type Encounter Description Reason Provider Source Dec 06, 2023 08:30 AM SELF-MGMT EDUC & TRAIN 1 PT CI TREATMENT ICD-10-CM E66.3 Overweight VITO NAIR IHE Encounter Template Text not used by [place] Assessments - Encounter Diagnoses This section includes the primary and secondary diagnoses documented for the Encounter. Date/Time Primary/Secondary Diagnosis Diagnosis Name Provider Source Jan 03, 2024 10:11 AM PRIMARY Overweight VITO NAIR [facility] [place] [facility] Plan of Treatment: Future Appointments (+ [...] 2024 11:30 AM [facility] Feb 24, 2024 02:30 PM AMBULATORY - MEDICINE [facility] [place] [facility] Apr 11, 2024 02:00 PM AMBULATORY - MEDICINE [facility] [place] [facility] Jun 06, 2024 11:00 AM [facility] Advance Directives: All historical and current Section Date Range: From patient's date of to the date document was created. This section includes ALL of a patient's completed or amended [place] Advance and Rescinded Directives. The entries below [...] Has ADDENDA D/ 78 year old male [place] comes for trial of hypnotherapy today to assist his goal of weight loss. [facility] and is trying to lose weight. Two identifiers used today, full SSN and , plus he states full name as he is not known to proposal manager writer. [place] has been trying to cut his sugar [...] meditating. We discussed this at length because proposal manager writer was concerned that the similar effect could carry over with hypnotherapy. We discussed the pros and cons at length. kiana stated he felt comfortable with proposal manager writer and had confidence to try the modality. you are easy to talk to Kiana was able to talk about many aspects that affect him today, including childhood trauma that he believes affects him and his eating at this time. 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 A/ Forensic Sergeant and discussed how the unconcious and subconcious mind supports goals of the person when same is in sync and revealed to the subconcious. Kiana stated understanding and we evolved several suggestions norman the wants to use for affirmations to support his weight loss journey. Kiana did express understanding of education on hypnotherapy. He stated he feels positive and able to try the therapy today. P/ voiced his wishes regarding a suggestion for [...] or any negative outcome today. will call proposal manager writer as needed for follow up and knows how to make follow up appt if he so desires. Kiana was fully reoriented and assisted to get directions back to his auto as he has not been to this location before, generally goes [facility] and is happy with care there. /harpal/ MELONIE NAIR RN,MSN,PSYCH N.P., STAFF CLINICAL NURSE SPECIALIST Signed: 12/06/2023 23:20 12/06/2023 ADDENDUM STATUS: COMPLETED Error in date: Kiana was seen on December 05 not December 04. He is interested in ongoing treatment /harpal/ MELONIE NAIR RN,MSN,PSYCH N.P., STAFF CLINICAL NURSE SPECIALIST Signed: 12/06/2023 23:22 MELONIE NAIR [facility]
--- OUTSIDE RECORDS SUMMARY | 2024-07-27 11:29 | XMS_ITS | Encounter Summary ---
Author Organization [facility] Address [address] [place] [address] Care Team Providers Care Dust Control Engineer Name Role Phone Monique Wan DO Primary Care Pro vider Unavailable Abdoulaye Mott DO Primary Care Provider Edna Curtis MD Primary Care Provider [phone] Reason for Visit * Reason Onset Date Comments refill request 03/24/2016 Encounter Details Date Type Department Care Team Description 03/24/2016 Refill Adult Medicine [address] [address] Monique Wan DO refill request Social History [...] encounter Miscellaneous Notes * Telephone Encounter - Romy Bhardwaj M.A. - 03/25/2016 8:18 AM EST Last office visit 03/03/16 Controlled substance contract and last issue date of medication reviewed. Patient is due for medication. Component Value Date URINEOXYCOD NEGATIVE 02/18/2016 URBENZO NEGATIVE 02/18/2016 URAMPHETAMIN NEGATIVE 02/18/2016 URMARIJUANA NEGATIVE 02/18/2016 UROPIATES NEGATIVE 02/18/2016 URBARBITUATE NEGATIVE 02/18/2016 URCOCAINE NEGATIVE 02/18/2016 HYDROCODONE Negative 02/18/2016 * Telephone Encounter - Evelyne Ambrosio - 03/24/2016 4:54 PM EST Patient would like script to be: E-PRESCRIBED/FAXED TO PHARMACY WHEN WAS THE PATIENT'S LAST APPOINTMENT IN ADULT MEDICINE? 05/03/15 WHEN WAS THE LAST TIME THE PATIENT SAW THEIR PCP? Same as above Does patient have an upcoming appointment? Yes 07/02/16 (THE MEDICATION REQUESTED IS ON THE MED LIST ABOVE) All of the medications requested were on the CURRENT MEDS list Did you check the Pharmacy information above?: YES Patient wants: 30 -day supply Is this a mail order prescription request ? NO Patients current insurance carrier is: Payor: [employer] FFS / Plan: [place] MEDICARE PLUS $15 [place] / Product Type: MEDICARE [id number] documented in this encounter Plan of Treatment Not on file documented as of this encounter Visit Diagnoses Not on filedocumented in this encounter Care Teams Dust Control Engineer Relationship Specialty Start Date End Date Monique Wan, PCP - General Internal Medicine 02/15/15 10/14/20 Abdoulaye Mott DO PCP - General Internal Medicine 10/15/20 01/02/21 Edna Laird MD [address] [place] [address] [id number] PCP - General Internal Medicine 01/03/21 documented as of this encounter
--- OUTSIDE RECORDS SUMMARY | 2024-07-27 11:29 | XMS_ITS | Encounter Summary ---
Author Organization [facility] Address [address] [place] [address] Care Team Providers Care Fumigator And Sterilizer Name Role Phone Monique Wan DO Primary Care Pro vider Unavailable Abdoulaye Mott DO Primary Care Provider Edna Curtis MD Primary Care Provider [phone] Encounter Details Date Type Department Care Team Description 09/16/2020 Telephone Adult Medicine [address] [address] Monique Wan DO Social History Tobacco Use Types Packs/Day Years [...] on filedocumented in this encounter Care Teams Fumigator And Sterilizer Relationship Specialty Start Date End Date Monique Wan DO PCP - General Internal Medicine 02/15/15 10/14/20 Abdoulaye Mott DO PCP - General Internal Medicine 10/15/20 01/02/21 Edna Laird MD [address] [place] [id number] PCP - General Internal Medicine 01/03/21 documented as of this encounter
--- OUTSIDE RECORDS SUMMARY | 2024-07-27 11:29 | XMS_ITS | Encounter Summary ---
Author Organization [facility] Address [address] [place] [address] Care Team Providers Care Chief Guard Name Role Phone Monique Wan DO Primary Care Pro vider Unavailable Abdoulaye Mott DO Primary Care Provider Edna Curtis MD Primary Care Provider [phone] Reason for Visit * Reason Onset Date Comments Breast Pain 10/17/2019 Encounter Details Date Type Department Care Team Description 10/17/2019 Telephone General Surgery - [address] [place] [address] Sanjuanita Wilkins MD [address] [place] [address] [phone] Breast Pain Social History Tobacco Use Types Packs/Day Years [...] encounter Miscellaneous Notes * Telephone Encounter - Jenifer Rainey M.A. - 10/18/2019 4:53 PM EDT I called and spoke to pt. I scheduled him for Monday 10/23 @ 10:10 am. * Telephone Encounter - Sanjuanita Wilkins MD - 10/18/2019 3:34 PM EDT Please have him see me in the office to discuss other treatment options. Thanks. * Telephone Encounter - Rina Patton - 10/17/2019 1:59 PM EDT Pt called to follow up with Сергей Mallorykatie--- says his breast is still sore-- was told to call back to let Sanjuanita know either way. documented in this encounter Plan of Treatment Not on file documented as of this encounter Visit Diagnoses Not on filedocumented in this encounter Care Teams Chief Guard Relationship Specialty Start Date End Date Monique Wan, PCP - General Internal Medicine 02/15/15 10/14/20 Abdoulaye Mott DO PCP - General Internal Medicine 10/15/20 01/02/21 Edna Laird MD [address] [place] [id number] PCP - General Internal Medicine 01/03/21 documented as of this encounter
--- OUTSIDE RECORDS SUMMARY | 2024-07-27 11:29 | XMS_ITS | Encounter Summary ---
Author Organization [facility] Address [address] [place] [address] Care Team Providers Care Lead Database Administrator Name Role Phone Monique Wan DO Primary Care Pro vider Unavailable Abdoulaye Mott DO Primary Care Provider Edna Curtis MD Primary Care Provider [phone] Encounter Details Date Type Department Care Team Description 06/03/2019 Refill Adult Medicine [address] [address] Monique Wan DO Social History Tobacco Use [...] encounter Miscellaneous Notes * Telephone Encounter - Paige Caruso M.A. - 06/05/2019 11:00 AM EST Lst ov 12/23/18 Next ov 06/19/19 Lab Results Component Value Date NA 142 11/28/2018 K 4.8 11/28/2018 CO2 29 11/28/2018 CL 108 11/28/2018 BUN 24 11/28/2018 CREAT 1.34 11/28/2018 GLU 92 11/28/2018 CA 9.4 11/28/2018 GFR 53 11/28/2018 * Telephone Encounter - Magy Jamison - 06/05/2019 10:25 AM EST Patient would like script to be: E-PRESCRIBED/FAXED TO PHARMACY WHEN WAS THE PATIENT'S LAST APPOINTMENT IN ADULT MEDICINE? 12/23/18 WHEN WAS THE LAST TIME THE PATIENT SAW THEIR PCP? Same as above Does patient have an upcoming appointment? Yes 06/19/19 (THE MEDICATION REQUESTED IS ON THE MED [...] / Plan[place] / Product Type: MEDICARE [id number] documented in this encounter Plan of Treatment Not on file documented as of this encounter Visit Diagnoses Not on filedocumented in this encounter Care Teams Lead Database Administrator Relationship Specialty Start Date End Date Monique Wan DO PCP - General Internal Medicine 02/15/15 10/14/20 Abdoulaye Mott DO PCP - General Internal Medicine 10/15/20 01/02/21 Edna Laird MD [address] [place] [id number] PCP - General Internal Medicine 01/03/21 documented as of this encounter
--- OUTSIDE RECORDS SUMMARY | 2024-07-27 11:29 | XMS_ITS | Encounter Summary ---
Author Organization [facility] Address [address] [place] [address] Care Team Providers Care Tie Puller Name Role Phone Javier Boladn MD Primary Care Provider Minna Jim Kowalski MD Primary Care Provider Unavail able Monique Wan DO Primary Care Pro vider Unavailable Abdoulaye Mott DO Primary Care Provider Minna Edna Rudd MD Primary Care Provider [phone] Encounter Details Date Type Department Care Team Description 03/13/2013 Hearing Aid Assembly Supervisor Report Medical Records [address] [place] [address] Juventino Varela Social History Tobacco Use Types [...] on filedocumented in this encounter Care Teams Tie Puller Relationship Specialty Start Date End Date Javier Boland MD PCP - General 01/23/10 04/25/14 Jim Blue MD PCP - General Internal Medicine 04/27/14 02/14/15 Monique Wan DO PCP - General Internal Medicine 02/15/15 10/14/20 Abdoulaye Mott DO PCP - General Internal Medicine 10/15/20 01/02/21 Edna Laird MD [address] [place] [phone] PCP - General Internal Medicine 01/03/21 documented as of this encounter
--- OUTSIDE RECORDS SUMMARY | 2024-07-27 11:29 | XMS_ITS | Encounter Summary ---
Author Organization [facility] Address [address] [place] [address] Care Team Providers Care Liquor Grinder Mill Operator Name Role Phone Monique Wan DO Primary Care Pro vider Unavailable Abdoulaye Mott DO Primary Care Provider Edna Curtis MD Primary Care Provider [phone] Encounter Details Date Type Department Care Team Description 03/04/2017 Refill Adult Medicine [address] [id number] Monique Wan DO Social History Tobacco Use [...] on filedocumented in this encounter Care Teams Liquor Grinder Mill Operator Relationship Specialty Start Date End Date Monique Wan DO PCP - General Internal Medicine 02/15/15 10/14/20 Abdoulaye Mott DO PCP - General Internal Medicine 10/15/20 01/02/21 Edna Laird MD [address] [place] [phone] PCP - General Internal Medicine 01/03/21 documented as of this encounter
--- OUTSIDE RECORDS SUMMARY | 2024-07-27 11:29 | XMS_ITS | Encounter Summary ---
Author Name [facility] Organization [facility] [place] Address [address] [place] [address] Care Team Providers Care Pharmacy Technician Per Diem Name Role Phone STEPHON UGARTE Primary Care [...] SUPPLEMEN ANTWAN MEDEX 2 Apr 26, 2017 [id number] ELIO CORTES PATIENT ANTHEM BCBS OF CT MEDICARE SUPPLEMEN ANTWAN COH RETIR EMENT Apr 26, 2017 [id number] ELIO CORTES PATIENT BCBS [place] MEDICARE SUPPLEMEN ANTWAN MEDEX 2 Apr 26, 2017 [id number] ELIO CORTES PATIENT [place]BS [place] MEDICARE SUPPLEMEN ANTWAN MEDEX 2 Apr 26, 2017 [id number] ELIO CORTES PATIENT BCBS [place] MEDICARE SUPPLEMEN ANTWAN MEDEX 2 Apr 26, 2017 [id number] ELIO CORTES PATIENT MEDICARE (WNR) MEDICARE (M) PART B Oct 24, 2012 PART B [id number] ELIO CORTES PATIENT MEDICARE (WNR) MEDICARE (M) PART A Oct 24, 2012 PART A [id number] ELIO CORTES PATIENT MEDICARE (WNR) MEDICARE (M) PART A Oct 24, 2012 PART A [id number] ELIO CORTES PATIENT MEDICARE (WNR) MEDICARE (M) PART B Oct 24, 2012 PART B [id number] ELIO CORTES PATIENT MEDICARE (WNR) MEDICARE (M) PART A Oct 24, 2012 PART A [id number] [phone] ELIO CORTES PATIENT MEDICARE (WNR) MEDICARE (M) PART B Oct 24, 2012 PART B [id number] [phone] ELIO CORTES PATIENT Selected Encounter This section includes the information on record at [place] for the Encounter. Date/Time Encounter Type Encounter Description Reason Pro vider Source Jun 08, 2024 03:02 PM Outpatient Encounter ADMIN PAT ACTIVTIES (MASNONCT) IHE Encounter Template Text not used by [place] Plan of Treatment: Future Appointments (+ 6 months) and Future Tests (+/- 45 days) The Plan of Treatment section includes future care activities for the patient from all [place] treatmentfacilities. This section includes future appointments and future orders which are active, pending or scheduled. Future Appointments This section includes appointments that were scheduled to occur 6 months from the date of the Encounter, up to a maximum of 20 appointments. The data comes from all [place] treatment facilities. Appointment Date/Time Appointment Type Appointme nt Facility Name Jun 09, 2024 11:15 AM [facility] Oct 10, 2024 11:00 AM [facility] Nov 14, 2024 02:00 PM [facility] Active, [...] of theEncounter. The data comes from all [place] treatment facilities. Test Date/Time Test Type Test Details Facility Name Jun 09, 2024 12:00 AM Laboratory - Chemistry Order BASIC METABOLIC PANEL (non-fasting) BLOOD (SST-SERUM) [facility] Jun 09, 2024 12:00 AM Laboratory - Chemistry Order HEMOGLOBIN A1C PANEL BLOOD (LAV-BLOOD) [facility] Jun 09, 2024 12:00 AM Laboratory - Chemistry Order CBC BLOOD (LAV-BLOOD) [facility] Jun 09, 2024 12:00 AM Laboratory - Chemistry Order MICROALBUMIN CREATININE RATIO PANEL URINE (RANDOM) [facility] Jun 09, 2024 12:00 AM Laboratory - Chemistry Order LIPID PANEL, NON FASTING BLOOD (SST-SERUM) [facility] Jun 09, 2024 12:00 AM Laboratory - Chemistry Order LIVER FUNCTION BLOOD (SST-SERUM) [facility] Jun 28, 2024 01:54 PM Consult Order COMMUNITY CARE-ACUPUNCTURE Cons Manufacturing Chief Engineer's Choice [place] [facility] Lab Results: +/- 30 days of the encounter This section includes the Chemistry and Hematology Lab Results on record with [place] for the patient. Radiology Reports and Pathology Reports are provided separately, in subsequent sections. Lab Results This section contains the Chemistry/Hematology Results that were resulted 30 days before or 30 daysafter the date of the Encounter. Date/Time Source Result Type Result - Unit Interpretation Reference Range Comment Jun 09, 2024 11:41 AM [facility] COVID-19 FLU/RSV DIAGNOSTIC PANEL Speci men Type: NASOPHARYNX Comment: This test is authorized for emergency use only. False negative results may occur if virus is present at levels below the analytical limit of detection.Nega tive results do not preclude SARS-CoV-2, influenza or RSV infection and should not be used as the sole basis for treatment or other patient management decisions.[facility] guillermo FLUVID: HCPs: https://www.fd a.gov/media/ 865/download. Patients: https://www.Primekss a.gov/media/ 962/download Ordering Provider: MALACHI MORALES Report Released Date/Time: Jun 09, 2024 11:33 AM Reporting Lab: [facility] [address] [facility] [id number] Performing Lab: [facility] [address] [facility] [id number] COVID-19 PCR (FLUVID) NEGATIVE NEGATIVE FLU A PCR (FLUVID) POSITIVE FLU B PCR (FLUVID) NEGATIVE RSV PCR (FLUVID) NEGATIVE Advance Directives: All historical and current Section Date Range: From patient's date of to the date document was created. This section includes ALL of a patient's completed or amended [place] Advance and Rescinded Directives. The entries below indicate that a directive exists for the patient, but an actual copy is not included with this document. The data comes from all [place] facilities. Date Advance Directives Provider Source Apr [...] COSIGNER: URGENCY: STATUS: COMPLETED Date: May Division: [facility] referred by Pharmacy Call Center for medication renewal: Non-controlled/maintenanc e medication Medications requested: [id number] ATORVASTATIN CALCIUM 80MG TAB Defer to primary care provider To be mailed . Please review and renew if appropriate. *This note was generated by [facility] Pharmacy Customer Care. If you have any questions or need assistance, do not contact this author. Please refer all questions to your local, on-site pharmacy departments. /harpal/ PAGE [facility]INST[facility] CPhT CYBERATHLETE, [place]/PHARMACY CUSTOMER CARE Signed: 06/08/2024 15:02 Receipt Acknowledged By: 06/08/2024 16:30 /harpal/ BAMBI BARRERA REGISTERED NURSE 06/09/2024 11:26 /harpal/ MALACHI MORALES NP NURSE PRACTITIONER [facility]
--- OUTSIDE RECORDS SUMMARY | 2024-07-27 11:29 | XMS_ITS ---
Author Name [facility] [place] [facility] [place] [facility] [place] Address [address] [place] [address] Care Team Providers Care Product Marketing Executive Name Role Phone STEPHON UGARTE Primary Care [...] SUPPLEMEN ANTWAN MEDEX 2 Apr 26, 2017 [id number] [phone] ELIO CORTES PATIENT ANTHEM BCBS OF CT MEDICARE SUPPLEMEN ANTWAN COH RETIR EMENT Apr 26, 2017 [id number] ELIO CORTES PATIENT [place] MED[place] SUPPLEMEN ANTWAN MEDEX 2 Apr 26, 2017 [id number] [phone] ELIO CORT[place] SUPPLEMEN ANTWAN MEDEX 2 Apr 26, 2017 [id number] ELIO CORTES [place] SUPPLEMEN ANTWAN MEDEX 2 Apr 26, 2017 [id number] ELIO CORTES PATIENT MEDICARE (WNR) MEDICARE (M) PART B Oct 24, 2012 PART B [id number] [phone] ELIO CORTES PATIENT MEDICARE (WNR) MEDICARE (M) PART A Oct 24, 2012 PART A [id number] [phone] ELIO CORTES PATIENT MEDICARE (WNR) MEDICARE (M) PART A Oct 24, 2012 PART A [id number] ELIO CORTES PATIENT MEDICARE (WNR) MEDICARE (M) PART B Oct 24, 2012 PART B [id number] ELIO CORTES PATIENT MEDICARE (WNR) MEDICARE (M) PART A Oct 24, 2012 PART A [id number] ELIO CORTES PATIENT MEDICARE (WNR) MEDICARE (M) PART B Oct 24, 2012 PART B [id number] ELIO CORTES PATIENT Selected Encounter This section includes the information on record at [place] for the Encounter. Date/Time Encounter Type Encounter Description Reason Provider Source Dec 24, 2023 02:00 PM MANUAL THERAPY 1/> [employer] PROCUREMENT ANALYST ICD-10-CM M54.59 Other low back pain ROCHELLE TATE [facility] Encounter Template Text not used by [place] Assessments - Encounter Diagnoses This section includes the primary and secondary diagnoses documented for the Encounter. Date/Time Primary/Secondary Diagnosis Diagnosis Name Provider Source Jan 11, 2024 02:26 PM PRIMARY Other low back pain ROCHELLE TATE [place] [facility] [place] [facility] Plan of Treatment: Future Appointments (+ [...] - MEDICINE [facility] [place] [facility] Jan 06, 2024 03:00 PM AMBULATORY - [facility]ICINE [facility] [place] [facility] Jan 14, 2024 02:30 PM AMBULATORY - [facility]INE [facility] [place] [facility] Jan 18, 2024 11:30 AM [facility] Feb 24, 2024 02:30 PM AMBULATORY - MEDICINE [facility] [place] [facility] Apr 11, 2024 02:00 PM AMBULATORY - [facility]ICINE [facility] [place] [facility] Jun 06, 2024 11:00 AM [facility]ORY [facility] [place] Jun 08, 2024 03:30 PM AMBULATORY - MEDICINE [facility] [place] [facility] Jun 09, 2024 11:15 AM AMBULATORY - [facility]IC[facility] Advance Directives: All historical and current [...] ENTRY DATE: DEC 24, 2023@14:06:02 AUTHOR: ROCHELLE TTAE COSIGNER: URGENCY: STATUS: COMPLETED ELIO HILL is a 78 WHITE MALE with prior history of COMBAT SERVICE INDICATED: No POS: PERIOD OF SERVICE - OTHER OR NONE SERVICE BRANCH: [employer] Connected Disabilities with % Eligibility: Active Problem Attention deficit hyperactivity dis 10/23/2022 ANGEL UGARTELINARIO Prediabetes R73.03 07/06/2022 STEPHON UGARTE Chronic Kidney Disease Stage 3B ([place] 10/30/2020 TORITO,STEPHON Gastroesophageal reflux disease wit 09/12/2020 TORITO,STEPHON Prostate cancer C61. 04/16/2020 TORITO,STEPHON Hypercholesterolemia E78.00 04/16/2020 TORITO,STEPHON Hypertension I10. 09/12/2020 TORITO,STEPHON CoManagement R69. 04/16/2020 TORITO,STEPHON Anxiety disorder F41.1 10/23/2022 0 Past Surgeries: HX prostate cancer He states that his numbers are coming up again and he is considering hormone therapy. [facility] [place] [facility] with C/C of bilat low [...] hurts Prior treatment: years ago Prior care transition coordinator: years ago and it did not help. Ortho surgeon ordered x- rays and recommended PT which he did and received no benefit. Exercise/Activities: Weight lifts at [employer] and he walks regularly. GOALS: walk [...] relaxation /es/ ROCHELLE TATE [facility] CHIROPRACTOR Signed: 12/24/2023 14:36 ROCHELLE TATE [facility]
--- OUTSIDE RECORDS SUMMARY | 2024-07-27 11:29 | XMS_ITS | Encounter Summary ---
Author Organization [facility] Address [address] [place] [address] Care Team Providers Care Restaurant Maintenance Technician Name Role Phone Monique Wan DO Primary Care Pro vider Unavailable Abdoulaye Mott DO Primary Care Provider Minna Edna Rudd MD Primary Care Provider [phone] Encounter Details Date Type Department Care Team Description 01/13/2016 Lunch Wagon Operator Report Medical Records [address] [place] [address] Juventino Varela Social History Tobacco Use Types [...] on filedocumented in this encounter Care Teams Restaurant Maintenance Technician Relationship Specialty Start Date End Date Monique Wan DO PCP - General Internal Medicine 02/15/15 10/14/20 Abdoulaye Mott DO PCP - General Internal Medicine 10/15/20 01/02/21 Edna Laird MD [address] [place], [place] [phone] PCP - General Internal Medicine 01/03/21 documented as of this encounter
--- OUTSIDE RECORDS SUMMARY | 2024-07-27 11:29 | XMS_ITS | Encounter Summary ---
Author Organization [facility] Address [address] [place] [address] Care Team Providers Care Foreign Collection Clerk Name Role Phone Javier Boland MD Primary Care Provider Minna vailable Sahil Roque MD Primary Care Provider [phone] Jim Blue MD Primary Care Provider Unavail able Monique Wan DO Primary Care Pro vider Unavailable Abdoulaye Mtot DO Primary Care Provider Minna vailable Edna Laird MD Primary Care Provider [phone] Encounter Details Date Type Department Care Team Description 12/15/2009 Portable Irrigation Operator Report Medical Records [address] [place] [address] Juventino Varela Social History Tobacco Use Types [...] on filedocumented in this encounter Care Teams Foreign Collection Clerk Relationship Specialty Start Date End Date Javier Boland MD PCP - General 01/23/10 04/25/14 Sahil Roque MD [address] [place] [address] [id number] PCP - General 02/17/00 01/22/10 Jim Blue MD [address] [place] [address] PCP - General Internal Medicine 04/27/14 02/14/15 Monique Wan, [address] [place] [address] PCP - General Internal Medicine 02/15/15 10/14/20 Abdoulaye Mott DO [address] [place] [address] PCP - General Internal Medicine 10/15/20 01/02/21 Edna Laird MD [address] [place] [address] PCP - General Internal Medicine 01/03/21 documented as of this encounter
--- OUTSIDE RECORDS SUMMARY | 2024-07-27 11:29 | XMS_ITS | Encounter Summary ---
Author Name [facility] [place] Address [address] [place] [address] Care Team Providers Care Technical Support 1 Software Engineer Name Role Phone STEPHON UGARTE Primary Care [...] SUPPLEMEN ANTWAN MEDEX 2 Apr 26, 2017 [id number] MARCIAL VILLAELIO PATIENT ANTHEM BCBS OF CT MEDICARE SUPPLEMEN ANTWAN COH RETIR EMENT Apr 26, 2017 [id number] MARCIAL VILLAELIO PATIENT [place] MEDIC[place] SUPPLEMEN ANTWAN MEDEX 2 Apr 26, 2017 [id number] ELIO CORTES PATIENT [place] MED[place] SUPPLEMEN ANTWAN MEDEX 2 Apr 26, 2017 [id number] ELIO CORTES PATIENT [place] SUPPLEMEN ANTWAN MEDEX 2 Apr 26, 2017 [id number] ELIO CORTES PATIENT MEDICARE (WNR) MEDICARE (M) PART A Oct 24, 2012 PART A [id number] ELIO CORTES PATIENT MEDICARE (WNR) MEDICARE (M) PART B Oct 24, 2012 PART B [id number] ELIO CORTES PATIENT MEDICARE (WNR) MEDICARE (M) PART A Oct 24, 2012 PART A [id number] [phone] [id number] ELIO CORTES PATIENT MEDICARE (WNR) MEDICARE (M) PART B Oct 24, 2012 PART B [id number] [id number] [id number] ELIO CORTES PATIENT MEDICARE (WNR) MEDICARE (M) PART A Oct 24, 2012 PART A [id number] ELIO CORTES PATIENT MEDICARE (WNR) MEDICARE (M) PART B Oct 24, 2012 PART B [id number] ELIO CORTES PATIENT Selected Encounter This section includes the information on record at [place] for the Encounter. Date/Time Encounter Type Encounter Description Reason Provider Source Jun 06, 2024 11:00 AM OFFICE O/P EST LOW 20 MIN PODIATRY ICD-10-CM L60.0 Ingrowing nail MEJIA MARCH Julee Encounter Template Text not used by [place] Assessments - Encounter Diagnoses This section includes the primary and secondary diagnoses documented for the Encounter. Date/Time Primary/Secondary Diagnosis Diagnosis Name Provider Source Jul 12, 2024 10:10 AM PRIMARY Ingrowing nail MEIJA MARCH ABRRETT Jul 12, 2024 10:10 AM SECONDARY Corns and callosities MEJIA MARCH BARRETT Jul 12, 2024 10:10 AM SECONDARY Idiopathic progressive neuropathy MEJIA MARCH BARRETT Jul 12, 2024 10:10 AM SECONDARY Peripheral vascular disease, unspecified MEJIA [...] 20 appointments. The data comes from all [facility]. Appointment Date/Time Appointment Type Appointme nt Facility Name Jun 08, 2024 03:30 PM AMBULATORY [facility] Jun 09, 2024 11:15 AM [facility] Oct 10, 2024 11:00 AM [facility] Nov 14, 2024 02:00 PM [facility] Active, Pending, and Scheduled Orders This section includes a listing of several types of active, pending, and scheduled orders, including clinic medications orders, diagnostic test orders, procedure orders and consult orders; where the start date of the order is 45 days before the date of the Encounter or 45 days after the date of theEncounter. The data comes from all [facility]. Test Date/Time Test Type Test Details Facility Name Jun 09, 2024 12:00 AM Laboratory - Chemistry Order BASIC METABOLIC PANEL (non-fasting) BLOOD (SST-SERUM) [facility] Jun 09, 2024 12:00 AM Laboratory - Chemistry Order HEMOGLOBIN A1C PANEL BLOOD (LAV-BLOOD) [facility] Jun 09, 2024 12:00 AM Laboratory - Chemistry Order CBC BLOOD (LAV-BLOOD) [facility] Jun 09, 2024 12:00 AM Laboratory - Chemistry Order MICROALBUMIN CREATININE RATIO PANEL URINE (RANDOM) [facility] Jun 09, 2024 12:00 AM Laboratory - Chemistry Order LIVER FUNCTION BLOOD (SST-SERUM) [facility] Jun 09, 2024 12:00 AM Laboratory - Chemistry Order LIPID PANEL, NON FASTING BLOOD (SST-SERUM) [facility] Jun 28, 2024 01:54 PM Consult Order COMMUNITY CARE-ACUPUNCTURE Cons Patient Monitor's Choice [facility] Lab Results: +/- 30 days of the encounter This section includes the Chemistry and Hematology Lab Results on record with [place] for the patient. Radiology Reports and Pathology Reports are provided separately, in subsequent sections. Lab Results This section contains the Chemistry/Hematology Results that were resulted 30 days before or 30 daysafter the date of the Encounter. Date/Time Source Result Type Result - Unit Interpretation Reference Range Comment Jun 09, 2024 11:41 AM [place] COVID-19 FLU/RSV DIAGNOSTIC PANEL Speci men Type: NASOPHARYNX Comment: This test is authorized for emergency use only. False negative results may occur if virus is present at levels below the analytical limit of detection.Nega tive results do not preclude SARS-CoV-2, influenza or RSV infection and should not be used as the sole basis for treatment or other patient management decisions.[facility] guillermo FLUVID: HCPs: https://www.[employer].gov/media/2434/download. Patients: https://www.[employer].gov//2435/download Ordering Provider: MALACHI MOARLES Report Released Date/Time: Jun 09, 2024 11:33 AM Reporting Lab: [address] [id number] Performing Lab: [address] [address] COVID-19 PCR (FLUVID) NEGATIVE NEGATIVE FLU A PCR (FLUVID) POSITIVE FLU B PCR (FLUVID) NEGATIVE RSV PCR (FLUVID) NEGATIVE Social History: Smoking Status (Most current) and Tobacco Use (All prior to encounter date) This section includes the most current, and the historical, smoking and tobacco- related health factors from the [place] facility where the Encounter took place. Current Smoking Status This section includes the most current smoking, or tobacco-related health factor, from the [place] facility where the Encounter took place. Date/Time Current Smoking Status Comment Ale de león Oct 25, 2023 08:30 AM [place]-TOBACCO NEVER USED [place] Tobacco Use History This section includes a history of the smoking, or tobacco-related health factors, that were collected on or before the date of the Encounter. The data comes from the [place] facility where the Encounter took place. Date/Time Smoking Status/Tobacco Use Comment F acility Mar 23, 2022 01:30 PM VA-TOBACCO NEVER USED [place] September 12, 2020 10:30 AM VA-TOBACCO NEVER USED [place] May 31, 2019 02:48 PM VA-TOBACCO FORMER USER [place] May 31, 2019 02:48 PM VA-TOBACCO QUIT 5 TO < 15 YRS [place] Advance Directives: All historical and current Section Date Range: From patient's date of to the date document was created. This section includes ALL of a patient's completed or amended VA Advance and Rescinded Directives. The entries below indicate that a directive exists for the patient, but an actual copy is not included with this document. The data comes from all [place] facilities. Date Advance Directives Provider Source Apr [...] HAS RECEIVED BOTH COVID VACCINE DOSES AT [facility] LAST SEEN FOR TREATMENT: 01/18/2024 S: [...] present physical-medical status. Protective sensation utilizing a [place] lOg monofilament is 02/10 LEFT & 5/10 [...] of active outpatient prescriptions dispensed from this [place] (local) and dispensed from another [place] or [facility] facility (remote) as well as [...] list may not be complete. Please check [employer]. Allergies/ADRs (Tool #5) FACILITY ALLERGY/ADR -------- No Remote Allergy/ADR Data available for this patient [facility] [place] [facility] Med Recon NoGlossary (Tool #1) INCLUDED IN THIS LIST: Alphabetical list of active outpatient prescriptions dispensed from this [facility] (local) and dispensed from another [place] or DoD facility (remote) as well as inpatient orders (local pending and active), local clinic medications, locally documented non-VA medications, and local prescriptions that have or been discontinued in the past 90 days. Non-VA Meds Last Documented On: Nov 11, 2022 NOTE The display of VA prescriptions dispensed from another [place] or [facility] facility (remote) is limited to active outpatient prescription entries matched to National Drug File at the originating site and may not include some items such as investigational drugs, compounds, etc. NOT INCLUDED IN THIS LIST: Medications self-entered by the patient into personal health records (i.e. [employer]) are NOT included in this list. Non-VA medications documented outside this [place], remote inpatient orders (regardless of status) and remote clinic medications are NOT included in this list. The patient and provider must always discuss medications the patient is taking, regardless of where the medication was dispensed or obtained. OUTPT ALBUTEROL 90MCG (CFC-F) 200D ORAL INHL (Status = Active) INHALE 2 PUFFS BY MOUTH FOUR TIMES DAILY NEEDED FOR SHORTNESS OF BREATH Rx# [id number] Last Released: 03/21/24 Qty/Days Supply: Rx Expiration Date: 03/22/25 Refills Remainin Indication: FOR SHORTNESS OF BREATH OUTPT AMLODIPINE BESYLATE 5MG TAB (Status = Active) TAKE ONE TABLET BY MOUTH ONCE DAILY FOR BLOOD PRESSURE/HEART, DO NOT TAKE WITH GRAPEFRUIT JUICE Rx# [id number] Last Released: 04/27/24 Qty/Days Supply: Rx Expiration Date: 02/14/25 Refills Remainin OUTPT ATORVASTATIN CALCIUM 80MG TAB (Status = ) TAKE ONE-HALF TABLET BY MOUTH ONCE DAILY FOR CHOLESTEROL Rx# [id number] Last Released: 02/18/24 Qty/Days Supply: Rx Expiration Date: 04/19/24 Refills Remainin OUTPT CARBOXYMETHYLCELLULOSE NA 0.5% OPH SOLN (Status = ) INSTILL 1 DROP INTO EACH EYE FOUR TIMES DAILY NEEDED FOR DRY EYE Rx# [id number] Last Released: 02/18/24 Qty/Days Supply: Rx Expiration Date: 06/03/24 Refills Remainin Indication: FOR DRY EYE Non-VA CLONAZEPAM 0.5MG TAB TAKE ONE TABLET BY MOUTH TWICE DAILY NEEDED OUTPT ESCITALOPRAM OXALATE 10MG TAB (Status = Active) TAKE ONE-HALF TABLET BY MOUTH TWICE DAILY FOR MAJOR DEPRESSIVE DISORDER FOR MOOD/DEPRESSION Rx# [id number] Last Released: 03/01/24 Qty/Days Supply: Rx Expiration Date: 12/23/24 Refills Remainin Indication: FOR MAJOR DEPRESSIVE DISORDER OUTPT FINASTERIDE 5MG TAB (Status = ) TAKE ONE TABLET BY MOUTH ONCE DAILY NEEDED FOR PROSTATE Rx# [id number] Last Released: 02/12/24 Qty/Days Supply: Rx Expiration Date: 04/12/24 Refills Remainin Non-VA FISH OIL 500MG DHA/EPA CAP,ORAL TAKE BY MOUTH ONCE DAILY OUTPT FLUTICASONE PROP 50MCG 120D NASAL INHL (Status = Active) INSTILL 2 SPRAYS INTO EACH NOSTRIL ONCE DAILY FOR NASAL IRRITATION/INFLAMMATION MAY DECREASE TO 1 SPRAY/NOSTRIL WHEN CONTROLLED Rx# [id number] Last Released: 02/18/24 Qty/Days Supply: Rx Expiration Date: 06/17/24 Refills Remainin Indication: FOR NASAL IRRITATION/INFLAMMATION OUTPT GABAPENTIN 600MG TAB (Status = ) TAKE ONE-HALF TABLET BY MOUTH TWICE DAILY FOR NERVE PAIN Rx# [id number] Last Released: 02/18/24 Qty/Days Supply: Rx Expiration Date: 05/11/24 Refills Remainin Indication: FOR NERVE PAIN Non-VA GLUCOSAMINE CAP/TAB TAKE 1000MG BY MOUTH ONCE DAILY OUTPT LISINOPRIL 10MG TAB (Status = Active) TAKE ONE TABLET BY MOUTH ONCE DAILY TO CONTROL BLOOD PRESSURE Rx# [id number] Last Released: 04/27/24 Qty/Days Supply: Rx Expiration Date: 10/25/24 Refills Remainin Indication: FOR HIGH BLOOD PRESSURE OUTPT LOSARTAN 25MG TAB (Status = Discontinued) TAKE ONE TABLET BY MOUTH ONCE DAILY FOR BLOOD PRESSURE/HEART STOP LISINOPRIL Rx# [id number] Last Released: 03/17/24 Qty/Days Supply: Rx Expiration Date: 06/14/24 Refills Remainin Indication: FOR HIGH BLOOD PRESSURE Non-VA LYSINE CAP/TAB TAKE ONE TABLET BY MOUTH ONCE DAILY OUTPT METFORMIN HCL 500MG 24HR SA TAB (Status = ) TAKE ONE TABLET BY MOUTH ONCE DAILY FOR 7 DAYS, THEN TAKE TWO TABLETS ONCE DAILY Rx# [id number] Last Released: 02/29/24 Qty/Days Supply: 173/90 Rx Expiration Date: 05/28/24 Refills Remainin Indication: DIABETES Non-VA NAPROXEN 500MG TAB TAKE ONE TABLET BY MOUTH ONCE DAILY OUTPT OMEPRAZOLE 20MG EC CAP (Status = Discontinued) TAKE ONE CAPSULE BY MOUTH TWICE DAILY FOR GASTROESOPHAGEAL REFLUX DISEASE Rx# [id number] Last Released: 01/26/24 Qty/ Supply: 180 Rx Expiration Date: 09/23/24 Refills Remainin Indication: FOR GASTROESOPHAGEAL REFLUX DISEASE OUTPT OMEPRAZOLE 20MG EC CAP (Status = Active) TAKE ONE CAPSULE BY MOUTH TWICE DAILY FOR GASTROESOPHAGEAL REFLUX DISEASE Rx# [id number] Last Released: 04/17/24 Qty/Days Supply: 180 Rx Expiration Date: 04/15/25 Refills Remainin Indication: FOR GASTROESOPHAGEAL REFLUX DISEASE SUPPLIES OUTPT ACCU-CHEK GUIDE (GLUCOSE) TEST STRIP (Status = Active) USE 1 STRIP TO TEST BLOOD SUGARS TWO TIMES A WEEK Rx# [id number] Last Released: 03/01/24 Qty/Days Supply: 50/180 Rx Expiration Date: 02/28/25 Refills Remainin OUTPT ACCU-CHEK GUIDE ME (GLUCOSE) METER (Status = ) USE METER TO TEST BLOOD SUGARS ONCE DAILY Rx# [id number] Last Released: 02/29/24 Qty/Days Supply: Rx Expiration Date: 05/28/24 Refills Remainin /es/ MEJIA MARCH DPM HOUSE MOTHER Signed: 06/06/2024 11:38 MEJIA MARCHFIELD
--- OUTSIDE RECORDS SUMMARY | 2024-07-27 11:29 | XMS_ITS | Encounter Summary ---
Author Organization [employer] [facility] Address [address] [place] [address] Care Team Providers Care Development Rep Name Role Phone Monique Wan DO Primary Care Pro vider Unavailable Abdoulaye Mott DO Primary Care Provider Minna Edna Rudd MD Primary Care Provider [phone] Encounter Details Date Type Department Care Team Description 08/16/2017 Business Doc Medical Records [address] [place] [address] Abstract, Provider Social History Tobacco Use Types [...] on filedocumented in this encounter Care Teams Development Rep Relationship Specialty Start Date End Date Monique Wan DO PCP - General Internal Medicine 02/15/15 10/14/20 Abdoulaye Mott DO PCP - General Internal Medicine 10/15/20 01/02/21 Edna Laird MD [address] [place] [address], [place] [id number] PCP - General Internal Medicine 01/03/21 documented as of this encounter
--- OUTSIDE RECORDS SUMMARY | 2024-07-27 11:29 | XMS_ITS | Encounter Summary ---
Author Name [facility] [place] Address [address] [place] [address] Care Team Providers Care Security Control Assessor Name Role Phone STEPHON UGARTE Primary Care [...] SUPPLEMEN ANTWAN MEDEX 2 Apr 26, 2017 [id number] [phone] ELIO CORTES PATIENT ANTHEM BCBS OF CT MEDICARE SUPPLEMEN ANTWAN COH RETIR EMENT Apr 26, 2017 [id number] ELIO CORTES PATIENT [place] MED[place] SUPPLEMEN ANTWAN MEDEX 2 Apr 26, 2017 [id number] [phone] ELIO CORT[place] SUPPLEMEN ANTWAN MEDEX 2 Apr 26, 2017 [id number] ELIO CORTES [place] SUPPLEMEN ANTWAN MEDEX 2 Apr 26, 2017 [id number] ELIO CORTES PATIENT MEDICARE (WNR) MEDICARE (M) PART B Oct 24, 2012 PART B [id number] ELIO CORTES PATIENT MEDICARE (WNR) MEDICARE (M) PART A Oct 24, 2012 PART A [id number] [phone] ELIO CORTES PATIENT MEDICARE (WNR) MEDICARE (M) PART A Oct 24, 2012 PART A [id number] ELIO CORTES PATIENT MEDICARE (WNR) MEDICARE (M) PART B Oct 24, 2012 PART B [id number] [phone] [id number] ELIO CORTES PATIENT MEDICARE (WNR) MEDICARE (M) PART A Oct 24, 2012 PART A [id number] ELIO CORTES PATIENT MEDICARE (WNR) MEDICARE (M) PART B Oct 24, 2012 PART B [id number] ELIO CORTES PATIENT Selected Encounter This section includes the information on record at [place] for the Encounter. Date/Time Encounter Type Encounter Description Reason Pro vider Source Dec 20, 2023 08:31 PM Outpatient Encounter ADMIN PAT ACTIVTIES (MASNONCT) IHE Encounter Template Text not used by [place] Plan of Treatment: Future Appointments (+ 6 months) and Future Tests (+/- 45 days) The Plan of Treatment section includes future care activities for the patient from all [place] treatmentfacilities. This section includes future appointments and future orders which are active, pending or scheduled. Future Appointments This section includes appointments that were scheduled to occur 6 months from the date of the Encounter, up to a maximum of 20 appointments. The data comes from all [place] treatment facilities. Appointment Date/Time Appointment Type Appointme nt Facility Name Dec 24, 2023 02:00 PM AM[place]ULATORY [place]IC[place] [facility] [place] [facility] Dec 28, 2023 02:45 PM AMBULATORY - MEDICINE [facility] Dec 31, 2023 02:00 PM AMBULATORY - MEDICINE [facility] [place] [facility] Jan 06, 2024 03:00 PM AMBUL[facility]ORY [facility]ICINE [facility] [place] [facility] Jan 14, 2024 02:30 PM AMBULATORY - MEDICINE [facility] [place] [facility] Jan 18, 2024 11:30 AM AMBULATORY - MEDICINE [facility] [place] Feb 24, 2024 02:30 PM AMBULATORY - MEDICINE [facility] [place] [facility] Apr 11, 2024 02:00 PM AMBULATORY - MEDICINE [facility] [place] [facility] Jun 06, 2024 11:00 AM AM[facility]ULATORY - MEDICINE [facility] Jun 08, 2024 03:30 PM AM[place]ORY [place]ICINE [place] [facility] [place] [facility] Jun 09, 2024 11:15 AM AMBULATORY - MEDICINE [facility] Advance Directives: All historical [...] Provider Source Apr 24, 2020 ADVANCE DIRECTIVE DAMI DENTRONY ARRIAZA Encounter Notes: All associated encounter notes This section contains the clinical notes associated to the Encounter. Date/Time Encounter Note(s) Provider Source Dec 20, 2023 08:31 PM PHARMACY NOTE: LOCAL TITLE: PHARMACY CUSTOMER CARE MEDICATION RENEWAL STANDARD TITLE: PHARMACY NOTE DATE OF NOTE: DEC 20, 2023@20:31 ENTRY DATE: DEC 20, 2023@20:31:43 AUTHOR: CONNER VICK COSIGNER: URGENCY: STATUS: COMPLETED Date: Nov Division: [facility] referred by Pharmacy Call Center for medication renewal: Non-controlled/maintenanc e medication Medications requested: [id number] ESCITALOPRAM OXALATE 10MG TAB 2nd Request Defer to primary care provider To be mailed . Please review and renew if appropriate. *This note was generated by [facility]/MD Pharmacy Customer Care. If you have any questions or need assistance, do not contact this author. Please refer all questions to your local, on-site pharmacy departments. /harpal/ CONNER VICK CPhT [place], MD/Pharmacy Customer Care Signed: 12/20/2023 20:32 Receipt Acknowledged By: 12/23/2023 15:19 /es/ STEPHON UGARTE MD PHYSICIAN 12/21/2023 08:36 /es/ VALENTINA CODYN,RN-BC REGISTERED NURSE (RN) [facility]
--- OUTSIDE RECORDS SUMMARY | 2024-07-27 11:29 | XMS_ITS | Encounter Summary ---
Author Name [facility] [place] Address [address] [place] [address] Care Team Providers Care Opener Tender Name Role Phone STEPHON UGARTE Primary [...] SUPPLEMEN ANTWAN MEDEX 2 Apr 26, 2017 [id number] ELIO CORTES PATIENT ANTHEM BCBS OF CT MEDICARE SUPPLEMEN ANTWAN COH RETIR EMENT Apr 26, 2017 [id number] ELIO CORTES PATIENT [place] SUPPLEMEN ANTWAN MEDEX 2 Apr 26, 2017 [id number] [phone] ELIO [place]ORT[place] SUPPLEMEN ANTWAN MEDEX 2 Apr 26, 2017 [id number] ELIO CORT[place] SUPPLEMEN ANTWAN MEDEX 2 Apr 26, 2017 [id number] ELIO CORTES PATIENT MEDICARE (WNR) MEDICARE (M) PART A Oct 24, 2012 PART A [id number] ELIO CORTES PATIENT MEDICARE (WNR) MEDICARE (M) PART B Oct 24, 2012 PART B [id number] [phone] ELIO CORTES PATIENT MEDICARE (WNR) MEDICARE (M) PART A Oct 24, 2012 PART A [id number] ELIO CORTES PATIENT MEDICARE (WNR) MEDICARE (M) PART B Oct 24, 2012 PART B [id number] ELIO CORTES PATIENT MEDICARE (WNR) MEDICARE (M) PART A Oct 24, 2012 PART A [id number] ELIO CORTES PATIENT MEDICARE (WNR) MEDICARE (M) PART B Oct 24, 2012 PART B [id number] ELIO CORTES PATIENT Selected Encounter This section includes the information on record at [place] for the Encounter. 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 Date/Time Primary/Secondary Diagnosis Diagnosis Name Provider Source Dec 23, 2023 07:47 AM PRIMARY Other low back pain [place] [place] [facility] Plan of Treatment: Future Appointments (+ 6 [...] AMBULATORY - [facility]CHIATRY [facility] [place] [facility] Dec 24, 2023 02:00 PM AMBULATORY - MEDICINE [facility] [place] [facility] Dec 28, 2023 02:45 PM [facility] Dec 31, 2023 02:00 PM [facility] - [facility]ICINE [facility] [place] [facility] Jan 06, 2024 03:00 PM AMBULATORY - MEDICINE [facility] [place] [facility] Jan 14, 2024 02:30 PM AMBULATORY - MEDICINE [facility] [place] [facility] Jan 18, 2024 11:30 AM [facility] Feb 24, 2024 02:30 PM [facility]AT[facility] - MEDICINE [facility] [place] [facility] Apr 11, 2024 02:00 PM AMBULATORY - MEDICINE [facility] [place] [facility] Advance Directives: All historical and [...] is considering hormone therapy. [place] [facility] [place] [facility] with C/C of bilat low [...] it hurts Prior treatment: years ago Prior foster care social worker: years ago and it did not help. Ortho surgeon ordered x- rays and recommended PT which he did and received no benefit. Exercise/Activities: Weight lifts at [employer] and he walks regularly. GOALS: walk w/o pain weight lifting w/o pain Vet anticipates Hypnosis at this [place] for weight loss. Reviewed Radiologist's reports: none [...] Signed: 11/23/2023 14:10 [facility] TATE [facility]
--- OUTSIDE RECORDS SUMMARY | 2024-07-27 11:29 | XMS_ITS | Encounter Summary ---
Author Organization [employer] [facility] Address [address] [place] [address] Care Team Providers Care Wood Patternmaker Name Role Phone Monique Wan DO Primary Care Pro vider Unavailable Abdoulaye Mott DO Primary Care Provider Minna Edna Rudd MD Primary Care Provider [phone] Encounter Details Date Type Department Care Team Description 02/19/2015 Controlled Substance Contract with Plan Medical Records [address] [place] [address] Abstract, Provider Social History Tobacco Use Types [...] on filedocumented in this encounter Care Teams Wood Patternmaker Relationship Specialty Start Date End Date Monique Wan DO PCP - General Internal Medicine 02/15/15 10/14/20 Abdoulaye Mott DO PCP - General Internal Medicine 10/15/20 01/02/21 Edna Laird MD [address] [place], [place] [id number] PCP - General Internal Medicine 01/03/21 documented as of this encounter
--- OUTSIDE RECORDS SUMMARY | 2024-07-27 11:29 | XMS_ITS | Encounter Summary ---
Author Name [facility] [place] [facility] [place] Address [address] [place] [address] Care Team Providers Care Wraparound Facilitator Name Role Phone STEPHON MOYER Primary Care [...] SUPPLEMEN ANTWAN MEDEX 2 Apr 26, 2017 [id number] MARCIAL VILLAELIO PATIENT ANTHEM BCBS OF CT MEDICARE SUPPLEMEN ANTWAN COH RETIR EMENT Apr 26, 2017 [id number] MARCIAL VILLAELIO PATIENT [place]BS [place] MEDIC[place] SUPPLEMEN ANTWAN MEDEX 2 Apr 26, 2017 [id number] [phone] MARCIAL ELIO VILLA PATIENT [place] MED[place] SUPPLEMEN ANTWAN MEDEX 2 Apr 26, 2017 [id number] [phone] MARCIAL VILLAELIO PATIENT [place]BS [place] MED[place] SUPPLEMEN ANTWAN MEDEX 2 Apr 26, 2017 [id number] ELIO CORTES PATIENT MEDICARE (WNR) MEDICARE (M) PART A Oct 24, 2012 PART A [id number] ELIO CORTES PATIENT MEDICARE (WNR) MEDICARE (M) PART B Oct 24, 2012 PART B [id number] [phone] ELIO CORTES PATIENT MEDICARE (WNR) MEDICARE (M) PART B Oct 24, 2012 PART B [id number] ELIO CORTES PATIENT MEDICARE (WNR) MEDICARE (M) PART A Oct 24, 2012 PART A [id number] ELIO CORTES PATIENT MEDICARE (WNR) MEDICARE (M) PART A Oct 24, 2012 PART A [id number] [phone] ELIO CORTES PATIENT MEDICARE (WNR) MEDICARE (M) PART B Oct 24, 2012 PART B [id number] ELIO CORTES PATIENT Selected Encounter This section includes the information on record at [place] for the Encounter. Date/Time Encounter Type Encounter Description Reason Provider Source Feb 24, 2024 02:30 PM MTMS BY BARBY [facility] 15 [facility] CLINICAL PHARMACY ICD-10-CM R73.03 Prediabetes SIMI STALLINGS [facility] Encounter Template Text not used by [place] Assessments - Encounter Diagnoses This section includes the primary and secondary diagnoses documented for the Encounter. Date/Time Primary/Secondary Diagnosis Diagnosis Name Provider Source Feb 28, 2024 01:30 PM PRIMARY Prediabetes SHARON STALLINGS [place] Plan of Treatment: Future Appointments (+ 6 [...] 11, 2024 02:00 PM AM[place]UL[place]ORY [place] [place] [facility] Jun 06, 2024 11:00 AM [facility] - MEDICINE [facility] Jun 08, 2024 03:30 PM AM[place]ULATORY [place]ICINE [place] [facility] Jun 09, 2024 11:15 AM AMBULATORY - MEDICINE [facility] Social History: Smoking Status (Most current) and Tobacco Use (All prior to encounter date) This section includes the most current, and the historical, smoking and tobacco- related health factors from the [place] facility where the Encounter took place. Current Smoking Status This section includes the most current smoking, or tobacco-related health factor, from the [place] facility where the Encounter took place. Date/Time Current Smoking Status Comment Facil ity Oct 25, 2023 08:30 AM VA-TOBACCO NEVER USED [place] Tobacco Use History This section includes a history of the smoking, or tobacco-related health factors, that were collected on or before the date of the Encounter. The data comes from the [place] facility where the Encounter took place. Date/Time Smoking Status/Tobacco Use Comment F acility Mar 23, 2022 01:30 PM VA-TOBACCO NEVER USED [place] September 12, 2020 10:30 AM VA-TOBACCO NEVER USED [place] May 31, 2019 02:48 PM VA-TOBACCO FORMER USER [place] May 31, 2019 02:48 PM [place]-TO[place]ACCO QUIT 5 TO < 15 YRS [place] Advance Directives: All historical and current Section [...] 129/75 (10/23/2022 14:36) S:Pt presents to the [facility]'s visit seeking GLP-1 treatment. Per prev: Pt [...] on it. The reason given to the insurance writer as to why he stopped It was [...] Code Description F90.9 Attention deficit hyperactivity disorder ([facility] 161999075) R73.03 Prediabetes ([facility] 408259120) N18.32 Chronic Kidney Disease Stage 3B ([facility] [id number]) K21.9 Gastroesophageal reflux disease without esophagitis ([facility] 323810223) C61. Prostate cancer ([facility] 997825298) E78.00 Hypercholesterolemia ([facility] 37845167) I10. Hypertension ([facility] 17110232) R69. CoManagement (ICD-10-CM R69.) F41.1 Anxiety disorder ([facility] 380822390) ALLERGIES/ADRs: PENICILLIN, PEANUTS --------- Reviewed chart and [...] eligible for weight loss medication management at [facility]: [x ] Verifiable participation in a comprehensive [...] inadequate response, contraindication or intolerance to all [place] National Formulary agents for chronic weight management [...] contraindication or intolerance to at least two [place] National Formulary agents for chronic weight management [...] between D: MGM - chicken wrap w/ czech fries usually take out foods - pizza; burger vanesa apple bees czech fries Snacks: chips, protein bar , soft [...] taper (ie, switch from daily dosing to avske-hrsnm-wsq dosing for at least 1 week before discontinuing) (Ref). Discussed the MH componenet of the weight loss. Pt cotninues to struggle w/ the overeating. Recommended the PC-MH integration consult pt agreed. Reviewed nutrition. pt to c/t on current regimen + MOVE program. 04/02/23: Reviewed the nutrition w/ the [facility]. Pt is overeating particularly fast food: pizza, cheesburgers, sweets, etc. He states per above MOVE program and/or MH is not helpful/of use for him. He is looking for a medication that will make him loose weight. Reviewed w/ [facility] erendira proper duration of Qsymia for weight loss and commented it's likely that pt has aborted the treatment too early. Pt is unsure if he wants to restart - he is looking for something better . Explained to the pt that GLP-1 continue to be on backorder and we are unable at the [place] to initiate/approve this class for weight loss at this time. Strongly recommended to return to MOVE program and MH assistance for his overeating. Pt declined the recommendations of this insurance writer. At this time this insurance writer is unable to assist the [facility]. No further appt will be scheduled. 02/24/24: Lengthy discussion w/ [facility] about weight loss. Pt is seeking medications only. Per prev. notes he did not finish appropriate titration of Qsymia and does not wish to retrial even though he did not experience any ADR's. Pt at this time does not meet criteria for GLP-1 therapy - due to the fact he is not willing to enroll into the MOVE program. Confirmed w/ the patient resource coordinator pt has attended only one session [...] monitor and assess /harpal/ SHARON STALLINGS CLINICAL FRUIT AND VEGETABLE INSPECTOR Signed: 02/28/2024 13:38 Receipt Acknowledged By: 03/02/2024 09:44 /harpal/ MALACHI MORALES NP NURSE PRACTITIONER [place]
--- OUTSIDE RECORDS SUMMARY | 2024-07-27 11:29 | XMS_ITS | Encounter Summary ---
Author Organization [facility] Address [address] [place] [address] Care Team Providers Care Meteorology Teacher Name Role Phone Monique Wan DO Primary Care Pro vider Unavailable Abdoulaye Mott DO Primary Care Provider Minna Edna Rudd MD Primary Care Provider Encounter Details Date Type Department Care Team Description 05/08/2019 Glycerine Plant Operator Report Medical Records [address] [place] [address] Alejandro Zhao, PAAndersonC Social History Tobacco Use Types Packs/Day Years [...] on filedocumented in this encounter Care Teams Meteorology Teacher Relationship Specialty Start Date End Date Monique Wan DO PCP - General Internal Medicine 02/15/15 10/14/20 Abdoulaye Mott DO PCP - General Internal Medicine 10/15/20 01/02/21 Edna Laird MD [address] [place] [address] PCP - General Internal Medicine 01/03/21 documented as of this encounter
--- OUTSIDE RECORDS SUMMARY | 2024-07-27 11:29 | XMS_ITS | Encounter Summary ---
Author Name [facility] [place] [facility] [place] Address [address] [place] [address] Care Team Providers Care Bog Worker Name Role Phone STEPHON UGARTE Primary Care [...] SUPPLEMEN ANTWAN MEDEX 2 Apr 26, 2017 [id number] [phone] ELIO CORTES PATIENT ANTHEM BCBS OF CT MEDICARE SUPPLEMEN ANTWAN COH RETIR EMENT Apr 26, 2017 [id number] ELIO CORTES PATIENT BCBS CT MEDICARE SUPPLEMEN ANTWAN MEDEX 2 Apr 26, 2017 [id number] [phone] ELIO CORTES PATIENT BCBS CT MEDICARE SUPPLEMEN ANTWAN MEDEX 2 Apr 26, 2017 [id number] ELIO CORTES PATIENT BCBS CT MEDICARE SUPPLEMEN ANTWAN MEDEX 2 Apr 26, 2017 [id number] ELIO CORTES PATIENT MEDICARE (WNR) MEDICARE (M) PART A Oct 24, 2012 PART A [id number] ELIO CORTES PATIENT MEDICARE (WNR) MEDICARE (M) PART B Oct 24, 2012 PART B [id number] [phone] ELIO CORTES PATIENT MEDICARE (WNR) MEDICARE (M) PART A Oct 24, 2012 PART A [id number] [phone] LEIO CORTES PATIENT MEDICARE (WNR) MEDICARE (M) PART B Oct 24, 2012 PART B [id number] [phone] ELIO CORTES PATIENT MEDICARE (WNR) MEDICARE (M) PART A Oct 24, 2012 PART A [id number] ELIO CORTES PATIENT MEDICARE (WNR) MEDICARE (M) PART B Oct 24, 2012 PART B [id number] [phone] ELIO CORTES PATIENT Selected Encounter This [...] 24, 2024 02:30 PM AMBULATORY - [place]ICINE [place] [facility] [facility] Apr 11, 2024 02:00 PM AMBULATORY - MEDICINE [place] [facility] Jun 06, 2024 11:00 AM AMBULATORY - MEDICINE [facility] Jun 08, 2024 03:30 PM [facility] Jun 09, 2024 11:15 AM AMBULATORY - MEDICINE [facility] Advance Directives: All historical and current [...] COSIGNER: URGENCY: STATUS: COMPLETED Date: Dec Division: [place] Pt referred by Pharmacy Call Center for medication renewal: Non-controlled/maintenanc e medication Medications requested: [id number] AMLODIPINE BESYLATE 5MG TAB Defer to primary care provider To be mailed . Please review and renew if appropriate. *This note was generated by [facility] Customer Care. If you have any questions or need assistance, do not contact this author. Please refer all questions to your local, on-site pharmacy departments. /harpal/ NINFA FINE Signed: 01/21/2024 12:52 Receipt Acknowledged By: 04/25/2024 14:06 /harpal/ STEPHON UGARTE MD PHYSICIAN 01/21/2024 14:28 /es/ Ally Rolon, OLGA Registered Nurse (RN) for [facility]
--- OUTSIDE RECORDS SUMMARY | 2024-07-27 11:29 | XMS_ITS | Encounter Summary ---
Author Organization [employer] [employer] [facility] Address [address] [place] [address] Care Team Providers Care Inspector Cold Working Name Role Phone Monique Wan DO Primary Care Pro vider Unavailable Abdoulaye Mott DO Primary Care Provider Minna Edna Rudd MD Primary Care Provider [phone] Encounter Details Date Type Department Care Team Description 06/21/2018 Controlled Substance Plan Medical Records [address] [place] [address] Abstract, Provider Social History Tobacco Use Types [...] filedocumented in this encounter Care Teams Inspector Cold Working Relationship Specialty Start Date End Date Monique Wan DO PCP - General Internal Medicine 02/15/15 10/14/20 Abdoulaye Mott DO PCP - General Internal Medicine 10/15/20 01/02/21 Edna Laird MD [address] [place], [place] [id number] PCP - General Internal Medicine 01/03/21 documented as of this encounter
--- OUTSIDE RECORDS SUMMARY | 2024-07-27 11:29 | XMS_ITS | Encounter Summary ---
Author Organization [facility] Address [address] [place] [address] Care Team Providers Care Trailer Truck Driver Name Role Phone Edna Laird MD Primary Care Provider [phone] Reason for Visit * Reason Onset Date Comments VNA Call 03/21/2021 Encounter Details Date Type Department Care Team Description 03/21/2021 Refill Adult Medicine [address] [id number] Edna Laird MD [address] [place] [address] [id number] [facility] Call Social History Tobacco Use Types Packs/Day Years [...] have Coronavirus / COVID-19? No / Unsure 03/17/2021 10:55 AM EST documented as of this encounter Miscellaneous Notes * Telephone Encounter - Harley FootePLudin - 03/24/2021 10:55 AM EST Med list faxed If Shay calls back please get an extention or direct line * Telephone Encounter - Shay Mccullough - 03/21/2021 3:17 PM EST VNA CALL Which VNA office is calling? [facility] outpatient clinic Full name of caller: Shay The caller is The patient Is the caller at the patients home?: NO Reason for call: requesting medication list for the patient , also asking for a hard copy of med lists if possible Does caller need an urgent call back? NO Was CONTACT Telephone # obtained above?: YES Fax #: [phone] documented in this encounter Plan of Treatment Not on file documented as of this encounter Visit Diagnoses Not on filedocumented in this encounter Care Teams Trailer Truck Driver Relationship Specialty Start Date End Date Edna Laird MD [address] [place] [address] PCP - General Internal Medicine 01/03/21 documented as of this encounter
--- OUTSIDE RECORDS SUMMARY | 2024-07-27 11:29 | XMS_ITS | Encounter Summary ---
Author Organization [facility] [employer] [facility] Address [address] [place] [address] Care Team Providers Care Sponge Buffer Name Role Phone Monique Wan DO Primary Care Pro vider Unavailable Abdoulaye Mott DO Primary Care Provider Minna Edna Rudd MD Primary Care Provider [phone] Encounter Details Date Type Department Care Team Description [facility]/16[facility]2017 [facility] [address] [place] [address] Abstract, Provider Social History Tobacco Use Types [...] on filedocumented in this encounter Care Teams Sponge Buffer Relationship Specialty Start Date End Date Monique Wan DO PCP - General Internal Medicine 02/15/15 10/14/20 Abdoulaye Mott DO PCP - General Internal Medicine 10/15/20 01/02/21 Edna Laird MD [address] [place], [place] [phone] PCP - General Internal Medicine 01/03/21 documented as of this encounter
--- OUTSIDE RECORDS SUMMARY | 2024-07-27 11:30 | XMS_ITS | Encounter Summary ---
Author Organization [facility] Address [address] [place] [address] Care Team Providers Care Acquisition Consultant Name Role Phone Monique Wan DO Primary Care Pro vider Unavailable Abdoulaye Mott DO Primary Care Provider Minna Edna Rudd MD Primary Care Provider [phone] Encounter Details Date Type Department Care Team Description 03/02/2018 Business Doc Medical Records [address] [place] [address] Abstract, Provider Social History Tobacco Use Types [...] on filedocumented in this encounter Care Teams Acquisition Consultant Relationship Specialty Start Date End Date Monique Wan DO PCP - General Internal Medicine 02/15/15 10/14/20 Abdoulaye Mott DO PCP - General Internal Medicine 10/15/20 01/02/21 Edna Laird MD [address] [place], [place] [phone] PCP - General Internal Medicine 01/03/21 documented as of this encounter
--- OUTSIDE RECORDS SUMMARY | 2024-07-27 11:30 | XMS_ITS | Encounter Summary ---
Author Organization [facility] Address [address] [place] [address] Care Team Providers Care Laundry Operator Name Role Phone Monique Wan DO Primary Care Pro vider Unavailable Abdoulaye Mott DO Primary Care Provider Edna Curtis MD Primary Care Provider [phone] Reason for Visit * Reason Onset Date Comments Neck Pain 02/28/2015 Encounter Details Date Type Department Care Team Description 02/28/2015 Telephone Adult Medicine [address] [address] Monique Wan DO Neck Pain Social History Tobacco Use Types Packs/Day Years Used Date Smoking Tobacco: Former Smokeless Tobacco: Never Comments:quit 2000, after [employer] for at least 36 years Alcohol Use Standard Drinks/Week Comments No 0 (1 standard drink = 0.6 oz pur e alcohol) Sex Assigned at Date Recorded Not on file Job Start Date Occupation Industry Not on file Not on file Not on file documented as of this encounter Miscellaneous Notes * Telephone Encounter - Yin Pedroza R.N. - 03/01/2015 5:15 PM EST Spoke to Shay and gave him message. Only time can't be seen is a Wednesday. Will let referrals know. * Telephone Encounter - Monique Landin DO - 03/01/2015 3:22 PM EST Referral to physiatry place * Telephone Encounter - Yin Pedroza R.N. - 02/28/2015 5:20 PM EST Patient looking for referral. you had seenhim in January. * Telephone Encounter - Jyoti Diez - 02/28/2015 4:46 PM EST Symptoms patient is presenting: NECK PAIN AND LOOKING TO GET A REFERRAL TO ORTHOPEDIC OR PHYSIATRY.PER DR ENCINAS If pain or injury related was it due to an accident at work or from a motor vehicle accident? NO If yes, gather 3rd libertarian insurance information Date of accident/Injury: How long has patient had these symptoms?: PCP: Monique Anglin Payor: [facility] FFS / Plan: [facility] MEDICARE PLUS $15 [place] / Product Type: MEDICARE [id number] documented in this encounter Plan of Treatment Not on file documented as of this encounter Visit Diagnoses Not on filedocumented in this encounter Care Teams Laundry Operator Relationship Specialty Start Date End Date Monique Wan DO PCP - General Internal Medicine 02/15/15 10/14/20 Abdoulaye Mott DO PCP - General Internal Medicine 10/15/20 01/02/21 Edna Laird MD [address] [place] [address] PCP - General Internal Medicine 01/03/21 documented as of this encounter
--- OUTSIDE RECORDS SUMMARY | 2024-07-27 11:30 | XMS_ITS | Encounter Summary ---
Author Organization [facility] Address [address] [place] [address] Care Team Providers Care Knitting Inspector Name Role Phone Monique Wan DO Primary Care Pro vider Unavailable Abdoulaye Mott DO Primary Care Provider Edna Curtis MD Primary Care Provider [phone] Reason for Visit * Reason Comments E-prescribe Rx Request Encounter Details Date Type Department Care Team Description 10/07/2018 Refill Adult Medicine [address] [address] Tahira Ribera PA-C E-prescribe Rx Request Social History Tobacco Use Types Packs/Day Years [...] Telephone Encounter - Romy Bhardwaj M.A. - 10/07/2018 9:39 AM EDT Please sign, this needs to go to mail order. Lab Results Component Value Date NA 142 06/10/2018 K 4.4 06/10/2018 CO2 28 06/10/2018 CL 107 06/10/2018 BUN 25 06/10/2018 CREAT 1.21 06/10/2018 GLU 101 06/10/2018 CA 9.1 06/10/2018 GFR 59 06/10/2018 * Telephone Encounter - Izabella María - 10/07/2018 9:11 AM EDT Patient would like script to be: E-PRESCRIBED/FAXED TO PHARMACY WHEN WAS THE PATIENT'S LAST APPOINTMENT IN ADULT MEDICINE? 09-22-2018 WHEN WAS THE LAST TIME THE PATIENT SAW THEIR PCP? 06-17-2018 Does patient have an upcoming appointment? Yes 11-04-2018 (THE MEDICATION REQUESTED IS ON THE MED LIST ABOVE) All of the medications requested were on the CURRENT MEDS list Did you check the Pharmacy information above?: YES Patient wants: 90 -day supply Is this a mail order prescription request ? YES [facility] If the refill is from a FAXED refill request what is the RX # listed on the fax? N/A Patients current insurance carrier is: [place] / [place] / Product Type: MED[place]ARE [id number] documented in this encounter Plan of Treatment Not on file documented as of this encounter Visit Diagnoses Not on filedocumented in this encounter Care Teams Knitting Inspector Relationship Specialty Start Date End Date Monique Wan, PCP - General Internal Medicine 02/15/15 10/14/20 Abdoulaye Mott DO PCP - General Internal Medicine 10/15/20 01/02/21 Edna Laird MD [address] [place] [address] PCP - General Internal Medicine 01/03/21 documented as of this encounter
--- OUTSIDE RECORDS SUMMARY | 2024-07-27 11:30 | XMS_ITS | Encounter Summary ---
Author Name [facility] [place] [facility] [place] Address [address] [place] [address] Care Team Providers Care Manager Human Resources Name Role Phone STEPHON UGARTE Primary Care [...] SUPPLEMEN ANTWAN MEDEX 2 Apr 26, 2017 [id number] ELIO CORTES PATIENT ANTHEM BCBS OF CT MEDICARE SUPPLEMEN ANTWAN COH RETIR EMENT Apr 26, 2017 [id number] ELIO CORTES PATIENT [place] MED[place] SUPPLEMEN ANTWAN MEDEX 2 Apr 26, 2017 [id number] ELIO CORT[place] SUPPLEMEN ANTWAN MEDEX 2 Apr 26, 2017 [id number] [phone] ELIO CORTES PATIENT [place] SUPPLEMEN ANTWAN MEDEX 2 Apr 26, 2017 [id number] ELIO CORTES PATIENT MEDICARE (WNR) MEDICARE (M) PART B Oct 24, 2012 PART B [id number] [phone] ELIO CORTES PATIENT MEDICARE (WNR) MEDICARE (M) PART A Oct 24, 2012 PART A [id number] ELIO CORTES PATIENT MEDICARE (WNR) MEDICARE (M) PART A Oct 24, 2012 PART A [id number] [phone] ELIO CORTES PATIENT MEDICARE (WNR) MEDICARE (M) PART B Oct 24, 2012 PART B [id number] ELIO CORTES PATIENT MEDICARE (WNR) MEDICARE (M) PART A Oct 24, 2012 PART A [id number] ELIO CORTES PATIENT MEDICARE (WNR) MEDICARE (M) PART B Oct 24, 2012 PART B [id number] ELIO CORTES PATIENT Selected Encounter This section includes the information on record at [place] for the Encounter. Date/Time Encounter Type Encounter Description Reason Pro vider Source Feb 10, 2024 12:21 PM Outpatient Encounter ADMIN PAT ACTIVTIES (MASNONCT) IHE Encounter Template Text not used by [place] Plan of Treatment: Future Appointments (+ 6 months) and Future Tests (+/- 45 days) The Plan of Treatment section includes future care activities for the patient from all [place] treatmentfacilities. This section includes future appointments and future orders which are active, pending or scheduled. Future Appointments This section includes appointments that were scheduled to occur 6 months from the date of the Encounter, up to a maximum of 20 appointments. The data comes from all [place] treatment facilities. Appointment Date/Time Appointment Type Appointme nt Facility Name Feb 24, 2024 02:30 PM AMBULATORY - MEDICINE [place] [facility] Apr 11, 2024 02:00 PM AMBULATORY - MEDICINE [place] [facility] Jun 06, 2024 11:00 AM AMBULATORY - MEDICINE [facility] Jun 08, 2024 03:30 PM [facility] Jun 09, 2024 11:15 AM AMBULATORY - MEDICINE [facility] Advance Directives: All historical and current Section Date Range: From patient's date of to the date document was created. This section includes ALL of a patient's completed or amended [place] Advance and Rescinded Directives. The entries below indicate that a directive exists for the patient, but an actual copy is not included with this document. The data comes from all [place] facilities. Date Advance Directives Provider Source Apr [...] ENTRY DATE: FEB 10, 2024@12:22:02 AUTHOR: JALEEL AQUINO EXP COSIGNER: URGENCY: STATUS: COMPLETED Hello, is requesting a [...] VALENTINA CODYN,RN-BC REGISTERED NURSE (RN) JALEEL AQUINO [facility]
--- OUTSIDE RECORDS SUMMARY | 2024-07-27 11:30 | XMS_ITS | Clinical Summary ---
Author Organization [facility] it Address [address] [place] [address] Care Team Providers Care Biological Aide Name Role Phone Edna Laird MD Primary Care Provider [phone] Allergies Active Allergy Reactions Criticality Noted Date [...] of colonoscopy PVD (peripheral vascular dis ease) ([facility]) 11/14/2020 DX:PVD (peripheral vascular disease) ([facility]) Family History Medical History Relation Name Comments Alcohol abuse Brother Tuberculosis Father Heart attack Mother from [place] ag e 74, stroke Relation Name Status [...] 08/17/2024 3:45 PM EDT Office Visit Nephrology [facility] [address] [place] [address] Keyshawn Clinton MD [address] [id number] Health Maintenance Due Date Last Done Comments Zoster Vaccines (3 of 3) 05/24/2020 03/29/2020, 10/25 Depression Screening 04/04/2022 Falls Risk Assessment 04/04/2022 Social Influencers of Health Screening 04/04/2022 RSV Immunization Adult Patients (1 - 1-dose 75+ series) 11/02/2022 Hypertension/CHF/CAD Annual BMP Blood Test 07/24/2023 07/23/2022 COVID-19 Vaccine (4 - season) 2023 03/11/2021, 07/23/2020, 07/02/2020 Influenza [...] * Annual BMP Blood Test (07/23/2022) Pathologist [facility] Annual BMP Blood Test abstracted Historical Provider HEALTH MAINTENANCE Final Result * Lipid panel (06/28/2020) [facility] LDL/HDL Ratio 3 0 - 4 Triglycerides 76 0 - 150 mg/dL Cholesterol 144 0 - 200 mg/dL HDL 49 >=40 mg/dL LDL Cholesterol 80 0 - 100 mg/dL Blood Venous blood specimen / Unknown Historical Provider LAB BLOOD ORDERABLES Odalys l Result * Hepatitis C Screening (07/11/2013) [facility] Hepatitis C Screening abstracted Historical Provider HEALTH MAINTENANCE Final Result from Last 3 Months or Most Recently Relevant to Health Maintenance Care Teams Biological Aide Relationship Specialty Start Date End Date Edna Laird MD [address] [place] [address] PCP - General Internal Medicine 01/03/21
--- OUTSIDE RECORDS SUMMARY | 2024-07-27 11:30 | XMS_ITS | Encounter Summary ---
Author Organization [facility] Address [address] [place] [address] Care Team Providers Care Urban Planning Teacher Name Role Phone Monique Wan DO Primary Care Pro vider Unavailable Abdoulaye Mott DO Primary Care Provider Edna Curtis MD Primary Care Provider [phone] Reason for Visit * Reason Comments E-prescribe Rx Request Encounter Details Date Type Department Care Team Description 08/22/2018 Refill Adult Medicine [address] [address] Tahira Ribera PA-C E-prescribe Rx Request Social [...] encounter Miscellaneous Notes * Telephone Encounter - Demetria Charles - 08/22/2018 11:14 AM EDT Patient would like script to be: E-PRESCRIBED/FAXED TO PHARMACY WHEN WAS THE PATIENT'S LAST APPOINTMENT IN ADULT MEDICINE? 08-22-18 WHEN WAS THE LAST TIME THE PATIENT SAW THEIR PCP? 06-17-18 Does patient have an upcoming appointment? Yes 08-29-18 (THE MEDICATION REQUESTED IS ON THE MED LIST ABOVE) All of the medications requested were on the CURRENT MEDS list Did you check the Pharmacy information above?: YES Patient wants: 90 -day supply Is this a mail order prescription request ? NO If the refill is from a FAXED refill request what is the RX # listed on the fax? N/A Patients current insurance carrier is: [place] / Plan: MEDICARE-[place] / Product Type: MEDICARE [id number] documented in this encounter Plan of Treatment Not on file documented as of this encounter Visit Diagnoses Not on filedocumented in this encounter Care Teams Urban Planning Teacher Relationship Specialty Start Date End Date Monique Wan DO PCP - General Internal Medicine 02/15/15 10/14/20 Abdoulaye Mott DO PCP - General Internal Medicine 10/15/20 01/02/21 Edna Laird MD [address] [place] [id number] PCP - General Internal Medicine 01/03/21 documented as of this encounter
--- OUTSIDE RECORDS SUMMARY | 2024-07-27 11:30 | XMS_ITS | Encounter Summary ---
Author Organization [facility] Address [address] [place] [address] Care Team Providers Care Heel Cover Softener Name Role Phone Monique Wan DO Primary Care Pro vider Unavailable Abdoulaye Mott DO Primary Care Provider Minna Edna Rudd MD Primary Care Provider [phone] Encounter Details Date Type Department Care Team Description 08/25/2018 Business Doc Medical Records [address] [place] [address] Abstract, Provider Social History Tobacco Use Types [...] on filedocumented in this encounter Care Teams Heel Cover Softener Relationship Specialty Start Date End Date Monique Wan DO PCP - General Internal Medicine 02/15/15 10/14/20 Abdoulaye Mott DO PCP - General Internal Medicine 10/15/20 01/02/21 Edna Laird MD [address] [place], [place] [id number] PCP - General Internal Medicine 01/03/21 documented as of this encounter
--- OUTSIDE RECORDS SUMMARY | 2024-07-27 11:30 | XMS_ITS | Encounter Summary ---
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 lower urinary tract symptoms Social History Tobacco Use Types Packs/Day Years [...] on file documented as of this encounter Results * TRANSAMINASE (SGPT)(ALT) UV- (08/15/2015 2:25 PM EDT) ALT( SGPT) 28 10 - 60 U/L 08/15/2015 5:36 PM EDT [facility] 08/15/2015 2:25 PM EDT 08/15/2015 2:25 PM EDT Monique Farias Colasacco DO LAB Performing Organization Address City/[facility]/ZIP Co de Phone Number [address] * TRANSAMINASE (SGOT)(AST) UV- (08/15/2015 2:25 PM EDT) AST (SGOT) 32 10 - 42 U/L 08/15/2015 5:36 PM EDT [facility] 08/15/2015 2:25 PM EDT 08/15/2015 2:25 PM EDT Monique Farias Coltammycco DO LAB Performing Organization Address [facility] Co de Phone Number [address] * LIPID PROFILE (08/15/2015 2:25 PM EDT) Cholesterol 139 0 - 200 mg/dL 08/15/2015 5:36 PM EDT [facility] TRIGLYCERIDES 93 0 - 150 mg/dL 08/15/2015 5:36 PM EDT [facility] HDL CHOLESTEROL 50 >40 mg/dL 6 5:36 PM EDT [facility] LDL CALCULATED 70 0 - 100 mg/dL 08/15/2015 5:36 PM EDT [facility] TC-HDLC RATIO 3 0.0 - 4.4 mg/dL 08/15/2015 5:36 PM EDT [facility] 08/15/2015 2:25 PM EDT 08/15/2015 2:25 PM EDT Monique Farias ColFront Appcco DO LAB Performing Organization Address [facility] Co de Phone Number [address] * (ABNORMAL) BASIC METABOLIC PANEL (08/15/2015 2:25 PM EDT) GLUCOSE 102(H) 70 - 100 mg/dL 08/15/2015 5:36 PM EDT [facility] Comment: Reference range applicable to fasting specimens only Based on recommendations from the ADA and AACE, the fasting glucose reference range has been changed to 70-100 mg/dL. ??This change is effective September 09, 2009 BUN 23 5 - 25 mg/dL 08/15/2015 5:36 PM EDT [facility] CREAT 1.3 0.7 - 1.5 mg/dL 08/15/2015 5:36 PM EDT [facility] GFR 59(L) >60 08/15/2015 5:36 PM EDT [facility] Comment: If patient is -Israeli, multiply result by 1.21 Chronic Kidney Disease: < 60 ml/min/1.73 square meters Kidney Failure: < 15 ml/min/1.73 square meters Sodium 143 133 - 145 mEq/L 08/15/2015 5:36 PM EDT [facility] Potassium 4.4 3.5 - 5.5 mEq/L 08/15/2015 5:36 PM EDT [facility] Chloride 102 96 - 108 mEq/L 08/15/2015 5:36 PM EDT [facility] CO2 25.7 21.0 - 32.0 mEq/L 08/15/2015 5:36 PM EDT [facility] CALCIUM 10.3 8.5 - 10.5 mg/dL 08/15/2015 5:36 PM EDT [facility] 08/15/2015 2:25 PM EDT 08/15/2015 2:25 PM EDT Monique Landin DO LAB [facility] [address] [facility] documented in this encounter Visit Diagnoses Diagnosis Hyperlipidemia, unspecified hyperlipidemia Essential hypertension Unspecified essential hypertension Benign non-nodular prostatic hyperplasia without lower urinary tract symptoms documented in this encounter Care Teams Dairy Clerk Relationship Specialty Start Date End Date Monique Wan DO PCP - General Internal Medicine 02/15/15 10/14/20 Abdoulaye Mott DO PCP - General Internal Medicine 10/15/20 01/02/21 Edna Laird MD [address] [place] [id number] PCP - General Internal Medicine 01/03/21 documented as of this encounter
--- OUTSIDE RECORDS SUMMARY | 2024-07-27 11:30 | XMS_ITS | Encounter Summary ---
Author Organization [facility] Address [address] [place] [address] Care Team Providers Care External Grinder Tool Name Role Phone Monique Wan DO Primary Care Pro vider Unavailable Abdoulaye Mott DO Primary Care Provider Edna Curtis MD Primary Care Provider [phone] Reason for Visit * Reason Onset Date Comments Medication Review 07/26/2020 Encounter Details Date Type Department Care Team Description 07/26/2020 Telephone Adult Medicine [address] [address] Claudine Cloud PA-C [address] [place] [id number] Medication Review Social History Tobacco Use Types Packs/Day Years [...] have Coronavirus / COVID-19? No / Unsure 07/26/2020 10:26 AM EDT documented as of this encounter Miscellaneous Notes * Telephone Encounter - Kristin Rogers M.A. - 07/29/2020 9:13 AM EDT Left voicemail for pt to call back and schedule * Telephone Encounter - Claudine Cloud PA-C - 07/26/2020 4:40 PM EDT Please call patient to schedule 1 month bp follow up. * Telephone Encounter - Landen Franklin C.M.A. - 07/26/2020 4:37 PM EDT Pt requesting 90 day supply be sent to [facility] * Telephone Encounter - Holly Lazar - 07/26/2020 4:21 PM EDT Patient saw Claudine Cloud today and prescribed Amlodipine for 30 days and it should be for 90 days. Please review and advise. documented in this encounter Plan of Treatment Not on file documented as of this encounter Visit Diagnoses Not on filedocumented in this encounter Care Teams External Grinder Tool Relationship Specialty Start Date End Date Monique Wan DO PCP - General Internal Medicine 02/15/15 10/14/20 Abdoulaye Mott DO PCP - General Internal Medicine 10/15/20 01/02/21 Edna Laird MD [address] [place] [id number] PCP - General Internal Medicine 01/03/21 documented as of this encounter
--- OUTSIDE RECORDS SUMMARY | 2024-07-27 11:30 | XMS_ITS | Encounter Summary ---
Author Organization [facility] Address [address] [place] [address] Care Team Providers Care Insurance Risk Analyst Name Role Phone Monique Wan DO Primary Care Pro vider Unavailable Abdoulaye Mott DO Primary Care Provider Minna Edna Rudd MD Primary Care Provider [phone] Encounter Details Date Type Department Care Team Description 06/20/2015 Link Trainer Report Medical Records [address] [place] [address] Juventino Varela Social History Tobacco Use Types [...] on filedocumented in this encounter Care Teams Insurance Risk Analyst Relationship Specialty Start Date End Date Monique Wan DO PCP - General Internal Medicine 02/15/15 10/14/20 Abdoulaye Mott DO PCP - General Internal Medicine 10/15/20 01/02/21 Edna Laird MD [address] [place], [place] [phone] PCP - General Internal Medicine 01/03/21 documented as of this encounter
--- OUTSIDE RECORDS SUMMARY | 2024-07-27 11:30 | XMS_ITS | Encounter Summary ---
Author Organization [facility] Address [address] [place] [address] Care Team Providers Care Information Officer Name Role Phone Monique Wan DO Primary Care Pro vider Unavailable Abdoulaye Mott DO Primary Care Provider Edna Curtis MD Primary Care Provider [phone] Reason for Visit * Reason Comments E-prescribe Rx Request Encounter Details Date Type Department Care Team Description 08/13/2020 Refill Adult Medicine [address] [address] Monique Wan DO E-prescribe Rx Request Social History Tobacco Use [...] encounter Miscellaneous Notes * Telephone Encounter - Makeda Moreau M.A. - 08/14/2020 2:08 PM EDT Lab Results Component Value Date NA 142 06/28/2020 K 4.7 06/28/2020 CO2 27 06/28/2020 CL 109 06/28/2020 BUN 21 06/28/2020 CREAT 1.48 06/28/2020 GLU 99 06/28/2020 CA 8.9 06/28/2020 GFR 47 06/28/2020 Last appt 3 * Telephone Encounter - Loco Munoz - 08/14/2020 9:56 AM EDT Patient would like script to be: E-PRESCRIBED/FAXED TO PHARMACY WHEN WAS THE PATIENT'S LAST APPOINTMENT IN ADULT MEDICINE? 07/26/2020 WHEN WAS THE LAST TIME THE PATIENT SAW THEIR PCP? 07/05/2020 Does patient have an upcoming appointment? Yes 08/30/2020 (THE MEDICATION REQUESTED IS ON THE MED [...] / Plan[place] / Product Type: MEDICARE [id number] documented in this encounter Plan of Treatment Not on file documented as of this encounter Visit Diagnoses Not on filedocumented in this encounter Care Teams Information Officer Relationship Specialty Start Date End Date Monique Wan DO PCP - General Internal Medicine 02/15/15 10/14/20 Abdoulaye Mott DO PCP - General Internal Medicine 10/15/20 01/02/21 Edna Laird MD [address] [place] [id number] PCP - General Internal Medicine 01/03/21 documented as of this encounter
== END 2024-07-27 10:25 | disposition home or self-care (01) ==
LOC: HO.MAMMO 10:24
PROVIDERS: Absent Provider Urology; PCP Internal Medicine; Visit Provider Internal Medicine
DX: M81.0 Age-related osteoporosis without current pathological fracture (principal); Z85.46 Personal history of malignant neoplasm of prostate
CPT/HCPCS: 77080

== ENCOUNTER → 2024-07-27 10:30 | Outpatient (BNV) | payer MEDICARE, SELFPAY | PROVIDERS: Absent Provider Urology; PCP Internal Medicine; Visit Provider Radiology Diagnostic Radiology | DX: Z13.820 Encounter for screening for osteoporosis (principal) | CPT/HCPCS: 77080 ==

== ENCOUNTER 2024-09-26 15:21 | Outpatient (REF) | payer MEDICARE, SELFPAY ==
[2024-09-26 15:30] LABS: MANUAL DIFF FLAG NO
--- OUTSIDE RECORDS SUMMARY | 2024-09-26 16:50 | XMS_ITS | Patient Health Record ---
Author Organization [facility] Address [address] [place] [address] Care Team Providers Care Electronic Component Processor Name Role Phone Joanne Bejarano MD Primary Care Provider Abdoulaye Cast [phone] Allergies Allergen (clinical drug ingredient) Drug/Non Drug [...] Problem Gastro-esophage al reflux disease without esophagitis (812816934) Gastro-esophageal reflux disease without esophagitis (K21.9) Active confirmed Problem 169211908 Encounter for screening for malignant neoplasm of colon (Z12.11) Active confirmed Problem 427730299 Change in bowel habits (R19.4) Active confirmed Problem 772166168 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 Problem 47726111 Heartburn (R12) Active confirmed Problem 509586624 Gastroesophageal reflux disease without esophagitis (K21.9) Active confirmed Problem 07514830 Hiatal hernia (K44.9) Active confirmed Problem Gastritis, chron ic (K29.50) Active confirmed Problem 816737525 Long-term use of aspirin therapy (Z79.82) Active confirmed Problem 74506071 Diarrhea, unspecified type (R19.7) Active confirmed Problem 680067055 Gastroesophageal reflux disease, unspecified whether esophagitis present [...] Date MEDICARE OF [place] [address] [place] [address] [id number] MARIAELENA VOGTELIO Bustamante Self - patient is the insured [employer] CLAIMS [address] [place] [address] [phone] [id number] ELIO MONTOYA Self - patient is the insured Medical (General) History Medical History History ICD Code Prostate cancer 2016 with radiation jaun tmejones Denies SD,DM,CVA,Lung disease,renal dise ase HTN Depression Hyperlipidemia Negative [...]
[2024-09-26 16:57] LABS: Basophils Absolute Auto 0.1 X10*3/uL (0.0-0.2); Basophils Percent Auto 0.9 % (0-2); Eosinophils Absolute Auto 0.2 X10*3/uL (0.0-0.4); Eosinophils Percent Auto 3.2 % (0-4); Hematocrit 41.7 % (42.0-52.0); Hemoglobin 13.3 g/dl (14.0-18.0); Imm Gran Abs Auto 0.02 X10*3/uL (0.00-0.03); Imm Gran Pct Auto 0.4 % (0.0-0.4); Lymphocytes Absolute Auto 1.3 X10*3/uL (1.2-4.9); Lymphocytes Percent Auto 24.6 % (20-40); Mean Corpuscular HGB Conc 31.9 g/dl (31.0-36.0); Mean Corpuscular Hemoglobin 26.6 pg (27.0-33.0); Mean Corpuscular Volume 83.4 fL (80.0-98.0); Mean Platelet Volume 10.9 fL (9.4-12.4); Monocytes Absolute Auto 0.5 X10*3/uL (0.1-1.2); Monocytes Percent Auto 10.2 % (2-11); Neutrophils Absolute Auto 3.2 x10*3/uL (2.0-8.3); Neutrophils Percent Auto 60.7 % (45-73); Platelet Count 180 X10*3/uL (160-400); Red Cell Distribution Width 14.5 % (11.0-16.0); White Blood Count 5.3 X10*3/uL (4.8-10.8)
[2024-09-26 17:11] LABS: Estimated Average Glucose 126 mg/dL; Hemoglobin A1C 152.1017 umol/L; Total Hemoglobin (HGBA1C) 3581.0146 umol/L
[2024-09-26 17:52] LABS: Alanine Aminotransferase 58 U/L (0-40); Albumin Level 4.1 g/dL (3.5-5.0); Alkaline Phosphatase 91 U/L (39-117); Anion Gap 12 (12-20); Aspartate Amino Transferase 56 U/L (5-37); Bilirubin Total 0.5 mg/dL (0.0-1.0); Blood Urea Nitrogen 24 mg/dL (9-16); Calcium 9.5 mg/dL (8.4-10.2); Carbon Dioxide 27 mmol/L (22-29); Chloride 110 mmol/L (96-108); Estimated Glomerular Filt Rate 53; Glucose Random 93 mg/dL (60-115); Potassium 4.7 mmol/L (3.3-5.1); Sodium 144 mmol/L (135-145); Total Protein 6.6 g/dL (6.5-8.0)
== END 2024-09-26 15:22 | disposition home or self-care (01) ==
LOC: HO.LAB 15:21
PROVIDERS: PCP Internal Medicine; Visit Provider Internal Medicine
DX: R73.02 Impaired glucose tolerance (oral) (principal)
CPT/HCPCS: 36415; 80053; 83036; 85025

== ENCOUNTER 2024-10-03 10:45 | Outpatient (AMB) | payer MEDICARE, SELFPAY ==
--- NOTE | 2024-10-03 10:49 | MHC.PC.OV ---
Vital Signs 10/03/24 10:50 Height 5 ft 11 in Weight 237 lb 8 oz BMI 33.1 BP 132/74 Blood Pressure Location Lt brachial Position Sitting Pulse 98 Pulse Source Pulse Oximeter Temp 97.0 F Temp Source Temporal Artery Scan Pulse Oximetry (%) 96 Oxygen Delivery Method Room Air Intake Visit Reasons: 3mth f/u Allergies Penicillins Allergy (Intermediate, Verified 10/03/24 10:52) HIVES peanut [PEANUT] Allergy (Unknown, Verified 10/03/24 10:52) UNKNOWN Medication List - Last Reconciled 10/03/24 by Joanne Bejarano MD albuterol sulfate 90 mcg/actuation (Ventolin HFA) 2 puffs inhalation Q6H PRN amlodipine 5 mg PO DAILY antiarthritic combination no.2 (glucosamine-chondroitin) mg PO atorvastatin 40 mg PO .Qod clonazepam 1 mg PO DAILY PRN dextroamphetamine-amphetamine 10 mg ER (Adderall XR) 10 mg PO DAILY escitalopram oxalate (Lexapro) 5 mg PO BID finasteride 1 tab PO DAILY fluticasone propionate 50 mcg/actuation 1 spray intranasal QAM gabapentin 300 mg PO BID lisinopril 2.5 mg PO DAILY lysine (L-Lysine) 500 mg PO DAILY mometasone-formoterol 100-5 mcg/actuation (Dulera) 2 puffs inhalation BID omeprazole 1 cap PO QAM Tobacco use date assessed: 10/03/24 Fall risk assessment: No Falls in past year Last assessed Fall Risk: 10/03/24 Dental Screening Dental Screen Date: 10/03/24 Did you have a dental visit in the last 12 months?: Yes Did you have a dental problem in the last 6 months where you did not have access to dental care?: No Was dental information given to patient?: Patient has dentist [facility] Medical History Impacted cerumen of both ears Recent change in frequency of bowel movements Left knee pain Post-nasal drip Low back pain GERD (gastroesophageal reflux disease) History of skin cancer Depression Elevated cholesterol HTN (hypertension) History of prostate cancer Surgical History History of cataract surgery H/O colonoscopy Family History Mother No problems noted. Father Tuberculosis Brother No problems noted. Sister No problems noted. Son No problems noted. Son No problems noted. Social History Housing: House Alcohol intake: former Patient Tobacco Use Status: Former Tobacco user Tobacco use type: Cigarette Years Smoked: quit 1999 e-Cigarette/Vaping Use: Never Used Second Hand Smoke Exposure: No Current occupational status: retired Cognitive needs: No Hearing needs: No Vision needs: Yes Questionnaire PHQ-9 Over the last 2 weeks, how often have you been bothered by any of the following problems? 1. Little interest or pleasure in doing things: not at all 2. Feeling down, depressed, or hopeless: not at all 3. Trouble falling or staying asleep, or sleeping too much: several days 4. Feeling tired or having little energy: several days 5. Poor appetite or overeating: several days 6. Feeling bad about yourself - or that you are a failure or have let yourself or your family down: several days 7. Trouble concentrating on things, such as reading the newspaper or watching television: several days 8. Moving or speaking so slowly that other people could have noticed. Or the opposite - being so fidgety or restless that you have been moving around a lot more than usual: not at all 9. Thoughts that you would be better off or of hurting yourself in some way: not at all Total score: 5 Source: Developed by Drs. Abdoulaye White, Mone Robles, Rico Holguin and colleagues, with an educational rasta from [employer]. Thrive Questionnaire Date Thrive assessed: 06/26/24 I am a: Patient What is your living situation today?: I have a steady place to live Within the past 12 months, did the food you bought not last and you didn't have the money to get more?: Never true Within the past 12 months, did you worry whether your food would run out before you got money to buy more?: Never true Do you have trouble paying for medicines?: No Do you have trouble getting transportation to medical appointments?: No Do you have trouble paying your heating and electricity bill?: No Do you have trouble taking care of your child, family member or friend?: No Do you have trouble with day-to-day activities such as bathing, preparing meals, shopping, managing finances, etc.?: No Are you currently unemployed and looking for a job?: No Are you interested in more education?: No Please select the resources that you would like help with: None Currently or been in a relationship where the following occur: No concerns reported THRIVE Score: 0 AUDIT C Alcohol Use Questionnaire (AUDIT-C) 1. How often do you have a drink containing alcohol?: Never 3. How often do you have six or more drinks on one occasion?: Never Total Score: 0 RONNIE-7 AMB Questionnaire RONNIE-7 Date RONNIE - 7 assessed: 10/03/24 Feeling nervous, anxious, or on edge: 1 = Several days Not being able to stop or control worryin = Several days Worrying too much about different things: 1 = Several days Trouble relaxin = Several days Being so restless that it is hard to sit still: 1 = Several days Becoming easily annoyed or irritable: 1 = Several days Feeling afraid as if something awful might happen: 1 = Several days Total RONNIE-7 score (0-4 normal; 5-9 mild; 10-14 moderate; 15-21 severe): 7 Source: Developed by Drs. Abdoulaye White, Mone Robles, Rico Holguin and colleagues, with an educational rasta from [employer]. Physical exam (Primary Care) Vital Signs: Last Vital Signs Temp 97.0 F 10/03/24 10:50 Pulse 98 10/03/24 10:50 BP 132/74 10/03/24 10:50 Pulse Ox 96 10/03/24 10:50 Oxygen Delivery Method Room Air 10/03/24 10:50 BMI result Body Mass Index 33.1 Tobacco/Smoking Status: Tobacco use Status Tobacco use date assessed 10/03/24 10/03/24 10:55 Patient Tobacco Use Status Former Tobacco user 10/03/24 10:55 Tobacco use type Cigarette 10/03/24 10:55 e-Cigarette/Vaping Use Never Used 10/03/24 10:55 PHQ-9: PHQ-9 Score PHQ-9: Total score 5 10/03/24 11:00 Thrive Assessment: Date of Thrive Assessment Date Thrive assessed 06/26/24 10/03/24 10:55 Currently or been in a relationship where the following occur: No concerns reported Const General: alert; No acute distress Eyes Conjunctivae: conjunctivae normal Resp Auscultation: clear to auscultation bilaterally Cardio Rate: regular rate Rhythm: regular rhythm GI Inspection: Yes normal to inspection Extrem General: Yes normal to inspection and No edema Coding Level of Care Code Est Pt Level 4 (88227) Complex EM visit Add On G2211 Diagnoses COPD (chronic obstructive pulmonary disease) J44.9 Obesity (BMI 30-39.9) E66.9 Renal insufficiency N28.9 Fatty liver K76.0 Impaired glucose tolerance R73.02 History of prostate cancer Z85.46 Generalized anxiety disorder F41.1 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 No significant response to bronchodilators noted. Mild decrease in the maximum voluntary ventilation secondary to likely deconditioning. One volumes are within normal limits. The patient does have mild diffusion impairment. Clinical correlation warranted.] Code(s): J44.9 - Chronic obstructive pulmonary disease, unspecified Category: Medical Plan: Patient is on an albuterol Inhaler and Dulera. (2) Obesity (BMI 30-39.9): Code(s): E66.9 - Obesity, unspecified Category: Medical Plan: Diet and exercise (3) Renal insufficiency: Code(s): N28.9 - Disorder of kidney and ureter, unspecified Category: Medical Plan: Keep well hydrated avoid NSAIDs (4) Fatty liver: Code(s): K76.0 - Fatty (change of) liver, not elsewhere classified Category: Medical Plan: Low-fat diet and exercise (5) Impaired glucose tolerance: Code(s): R73.02 - Impaired glucose tolerance (oral) Category: Medical Plan: Decrease the amount of carbohydrate intake, pasta, bread, rice and potatoes are all sugar and that is aside from all the sweet stuff, remember that fruits are good but they are Sweet also. (6) History of prostate cancer: Comment: 2016-w/radiation, Dr. Varela Code(s): Z85.46 - Personal history of malignant neoplasm of prostate Category: Medical Plan: Patient continues to follow-up with urology (7) Generalized anxiety disorder: Comment: Mariposa Hooker Code(s): F41.1 - Generalized anxiety disorder Category: Medical Plan: Continue with counseling and therapy on clonazepam Lexapro (8) Barretts esophagus: Comment: EGD May 2023 3 years Code(s): K22.70 - 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 Category: Medical Qualifiers: Carter's esophagus type: without dysplasia Qualified Code(s): K22.70 - 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 Plan: Avoid the foods that causes that usually spicy foods, tomato products, juices, coffee, soda and foods that your sensitive to. After eating do not lie down, allow 3-4 hours before in lie down. And keep the head of bed above 30 degrees to avoid the acid from going up. Patient takes omeprazole once a day (9) Hypertension: Code(s): I10 - Essential (primary) hypertension Category: Medical Qualifiers: Hypertension type: primary hypertension Qualified Code(s): I10 - Essential (primary) hypertension Plan: Continue with blood pressure medication. Decrease salt intake and exercise on lisinopril 2.5 mg once a day and amlodipine 5 mg once a day (10) Elevated cholesterol: Code(s): E78.00 - Pure hypercholesterolemia, unspecified Category: Medical Plan: Avoid fried foods, chicken skin, eggs, butter margarine, pastries and meat. Be it pork or beef they have a lot of cholesterol on atorvastatin 40 mg every other day (11) ADHD (attention deficit hyperactivity disorder): Code(s): F90.9 - Attention-deficit hyperactivity disorder, unspecified type Category: Medical Plan: Patient on medication Plan History of Present Illness The patient is a 78-year-old male presenting with a follow-up for multiple chronic conditions. He has a history of prostate cancer diagnosed in 2016 and is on hormone therapy causing hot flashes. His renal function shows mild insufficiency with consistent lab values, and his anemia is mild with no severe symptoms reported. Liver enzymes are slightly elevated due to fatty liver. The patient's hypercholesterolemia is managed with his LDL at target levels. His A1c has been gradually rising, now at 6.0%, indicating a need for lifestyle management to prevent diabetes onset. Health Maintenance - Osteoporosis screening: Normal results. Bone health monitoring due to hormone therapy for prostate cancer. - Blood glucose monitoring: Hemoglobin A1c rising (5.8% to 6.0%); lifestyle recommendations to prevent diabetes onset. - Cholesterol management: LDL cholesterol at 100 mg/dL as of May 2024. - Regular physical activity reported; advised to continue. Social History - Exercises daily with an active lifestyle. - Reported difficulty with diet management; seeks weight loss interventions. - Inquiries about medication availability and insurance coverage. Review of Systems - General: Denies fatigue and significant weight change. - Cardiovascular: Denies chest pain. - Respiratory: Reports occasional use of albuterol for COPD. - Gastrointestinal: Reports history of GERD and Carter?s esophagus. - Musculoskeletal: Denies joint pain but reports hot flashes due to hormone therapy. - Endocrine: Denies excessive thirst or urination. Physical Exam Results - Labs: Hemoglobin of 13.3 g/dL indicating mild anemia. Creatinine of 1.32 mg/dL with GFR of 53 mL/min. Elevated liver enzymes (AST and ALT) at 56 and 58 U/L. LDL cholesterol at 100 mg/dL. Hemoglobin A1c at 6.0%. Plan The patient's essential hypertension management involves continuing amlodipine at a reduced 5 mg dose. The mild anemia will be monitored, with dietary iron and potential supplementation discussed. His COPD management includes using albuterol as needed, and lifestyle changes were recommended to address his rising A1c. Prostate cancer management under hormone therapy includes bone health monitoring. An alternative pain management medication, meloxicam, has been suggested. Wegovy was prescribed with awareness of insurance and availability issues. Patient was informed and verbally consented to the use of an ambient scribe for clinic note documentation during this visit. Discussion Notes I discussed with the patient the management of his chronic conditions, including the benefits and risks of his current and new medications. Attention to lifestyle modifications for blood glucose management was emphasized. I explained the decision for meloxicam over prednisone for pain management, highlighting risks associated with prednisone. The potential benefits and insurance challenges of Wegovy were detailed, and I confirmed the pending prescription process. Follow-up plans, including a three-month return visit and continuity of care for prostate cancer, were agreed upon. I reiterated the importance of hydration, diet, and regular exercise. Patient Instructions - Continue current medication regimen for hypertension and COPD. - Monitor and improve dietary habits focusing on iron-rich foods. - Stay hydrated and maintain regular physical activity. - Be aware of sugar intake to manage hemoglobin A1c levels. - Use meloxicam as needed for pain management. - Follow up on Wegovy prescription with the pharmacy and insurance. - Schedule the next visit in three months for continued monitoring. Orders: Orders Hemoglobin A1c 3 Months N28.9 - Disorder of kidney and ureter, unspecified IRON PROFILE 3 Months N28.9 - Disorder of kidney and ureter, unspecified Vitamin B12 and Folate 3 Months N28.9 - Disorder of kidney and ureter, unspecified Comprehensive Met. 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
[2024-10-03 10:50] VITALS: BP 132/74; PULSE 98; TEMP 36.1; O2SAT 96; BMI 33.1
== END 2024-10-03 11:20 | disposition home or self-care (01) ==
LOC: HO.HMCH 10:46
PROVIDERS: PCP Internal Medicine; Visit Provider Internal Medicine
DX: J44.9 Chronic obstructive pulmonary disease, unspecified (principal); E66.9 Obesity, unspecified; N28.9 Disorder of kidney and ureter, unspecified; Z68.33 Body mass index [BMI] 33.0-33.9, adult; K76.0 Fatty (change of) liver, not elsewhere classified; R73.02 Impaired glucose tolerance (oral); Z85.46 Personal history of malignant neoplasm of prostate; F41.1 Generalized anxiety disorder; K22.70 Barrett's esophagus without dysplasia; I10 Essential (primary) hypertension; E78.00 Pure hypercholesterolemia, unspecified; F90.9 Attention-deficit hyperactivity disorder, unspecified type

== ENCOUNTER → 2024-10-03 10:45 | Outpatient (BNVA) | payer MEDICARE, SELFPAY | PROVIDERS: PCP Internal Medicine; Visit Provider Internal Medicine | DX: J44.9 Chronic obstructive pulmonary disease, unspecified (principal); N28.9 Disorder of kidney and ureter, unspecified; K76.0 Fatty (change of) liver, not elsewhere classified; R73.02 Impaired glucose tolerance (oral); F41.1 Generalized anxiety disorder; K22.70 Barrett's esophagus without dysplasia; I10 Essential (primary) hypertension; E78.00 Pure hypercholesterolemia, unspecified; F90.9 Attention-deficit hyperactivity disorder, unspecified type; E66.9 Obesity, unspecified; Z85.46 Personal history of malignant neoplasm of prostate; Z68.33 Body mass index [BMI] 33.0-33.9, adult; Z87.891 Personal history of nicotine dependence; Z71.3 Dietary counseling and surveillance | CPT/HCPCS: 99212 ==

== ENCOUNTER 2024-11-20 10:17 | Outpatient (AMB) | payer MEDICARE, SELFPAY ==
--- OUTSIDE RECORDS SUMMARY | 2024-01-14 10:30 | XMS_ITS | Encounter Summary ---
Author Name [facility] [place] [facility] [facility] [place] Address [address] [place] [address] Care Team Providers Care Egg Trayer Name Role Phone STEPHON UGARTE Primary Care Provider Unava ilable Insurance Providers: All historical and current Section Date Range: From patient's date of to the date document was created. This section includes the names of all active insurance providers for the patient. Insurance Provider Type of Coverage Plan Name Start of Policy Coverage End of Policy Coverage Group Number Member ID Insurance Provider's Telephone Number Policy Hardy's Name Patient's Relationship to Policy Hardy [place]TH[place]O [place] MEDICARE SUPPLEMEN ANTWAN MEDEX 2 Apr 26, 2017 [id number] [phone] MARCIAL VILLAELIO PATIENT ANTHEM [place] MEDICARE SUPPLEMEN ANTWAN COH RETIR EMENT Apr 26, 2017 [id number] [phone] MARCIAL VILL[place]EL[place] MED[place] 2 Apr 26, 2017 [id number] [phone] MARCIAL ELIO VILLA PATIENT [place] MED[place] 2 Apr 26, 2017 [id number] MARCIAL VILLACONNIEELIO PATIENT [place] MEDEX 2 Apr 26, 2017 [id number] ELIO CORTES PATIENT MEDICARE (WNR) MEDICARE (M) PART A Oct 24, 2012 PART A [id number] ELIO CORTES PATIENT MEDICARE (WNR) MEDICARE (M) PART B Oct 24, 2012 PART B [id number] [phone] ELIO CORTES PATIENT MEDICARE (WNR) MEDICARE (M) PART A Oct 24, 2012 PART A [id number] ELIO CORTES PATIENT MEDICARE (WNR) MEDICARE (M) PART B Oct 24, 2012 PART B [id number] [phone] ELIO CORTES PATIENT MEDICARE (WNR) MEDICARE (M) PART A Oct 24, 2012 PART A [id number] ELIO CORTES PATIENT MEDICARE (WNR) MEDICARE (M) PART B Oct 24, 2012 PART B [id number] [phone] ELIO CORTES PATIENT Selected Encounter This section includes the information on record at [place] for the Encounter. 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 Encounter Template Text not used by [place] Assessments - Encounter Diagnoses This section includes the primary and secondary diagnoses documented for the Encounter. Date/Time Primary/Secondary Diagnosis Diagnosis Name Provider Source Feb 01, 2024 01:39 PM PRIMARY Other low back pain BEBETOROCHELLE HENNESSY [place] [facility] [place] [facility] Plan of Treatment: Future Appointments (+ 6 months) and Future Tests (+/- 45 days) The Plan of Treatment section includes future care activities for the patient from all [place] treatmentfacilities. This section includes future appointments and future orders which are active, pending or scheduled. Future Appointments This section includes appointments that were scheduled to occur 6 months from the date of the Encounter, up to a maximum of 20 appointments. The data comes from all [place] treatment facilities. Appointment Date/Time Appointment Type Appointme nt Facility Name Jan 18, 2024 11:30 AM [facility] Feb 24, 2024 02:30 PM [facility]UL[facility] - MEDICINE [place] [facility] [place] [facility] Apr 11, 2024 02:00 PM AMBULATORY - MEDICINE [place] [facility] [place] [place] [facility] Jun 06, 2024 11:00 AM [facility] Jun 08, 2024 03:30 PM AM[place]ULATORY - [place]ICINE [place] [facility] [place] [facility] Jun 09, 2024 11:15 AM AM[facility]ULATORY - MEDICINE [facility] Advance Directives: All historical and current Section Date Range: From patient's date of to the date document was created. This section includes ALL of a patient's completed or amended [place] Advance and Rescinded Directives. The entries below indicate that a directive exists for the patient, but an actual copy is not included with this document. The data comes from all [facility]. Date Advance Directives Provider Source Apr 24, 2020 ADVANCE DIRECTIVE DWAINE DENT Encounter Notes: All associated encounter notes This section contains the clinical notes associated to the Encounter. Date/Time Encounter Note(s) Provider Source Mar 22, 2024 09:57 AM ADDENDUM: LOCAL TITLE: Addendum STANDARD TITLE: ADDENDUM DATE OF NOTE: MAR 22, 2024@09:57:40 ENTRY DATE: MAR 22, 2024@09:57:40 AUTHOR: ARSENIO INMAN EXP COSIGNER: URGENCY: STATUS: COMPLETED Hospers returned call and left voice mail on Acupuncture/Chiropractic line. Please return call to at [phone] /harpal/ ARSENIO GALVEZ Signed: 03/22/2024 09:58 Receipt Acknowledged By: 03/29/2024 09:16 /harpal/ [facility]HELLE TATE [facility] CHIROPRACTOR --- Original Document --- 03/21/24 TELEPHONE NOTE/CHIROPRACTOR: called to speak to patient and left a RAULITO /harpal/ ROCHELLE TATE [facility] CHIROPRACTOR Signed: 03/21/2024 16:13 [facility] Mar 21, 2024 04:12 PM CHIROPRACTIC TELEPHONE ENCOUNTER NOTE: LOCAL TITLE: TELEPHONE NOTE/CHIROPRACTOR STANDARD TITLE: CHIROPRACTIC TELEPHONE ENCOUNTER NOTE DATE OF NOTE: MAR 21, 2024@16:12 ENTRY DATE: MAR 21, 2024@16:13:01 AUTHOR: ROCHELLE TATE EXP COSIGNER: URGENCY: STATUS: COMPLETED TELEPHONE NOTE/CHIROPRACTOR Has ADDENDA called to speak to patient and left a RAULITO ash/ ROCHELLE TATE [facility] CHIROPRACTOR Signed: 03/21/2024 16:13 03/22/2024 ADDENDUM STATUS: COMPLETED returned call and left voice mail on Acupuncture/Chiropractic line. 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 04/16/2020 STEPHON UGARTE Hypercholesterolemia E78.00 04/16/2020 STEPHON UGARTE Hypertension I10. 09/12/2020 STEPHON UGARTE CoManagement R69. 04/16/2020 STEPHON UGARTE Anxiety disorder F41.1 10/23/2022 0 Past Surgeries: HX prostate cancer Patient [facility] [place] [facility] with report that he felt well but he went to the [employer] yesterday and he walked a lot. He reports feeling soreness in low back, right side. Vet states that he stopped using sugar and hopes to decr his weight. Quality: ache and intermittent Vet rates the pain on the NPRS 6-710 Provocative: walking >2 minutes; occasional hiking with a cane Onset: years ago One day when he was in the service he was playing football he was hit hard and had back pain that comes and goes. Palliative: sitting down; stretching; occasional topical gel Timing: worse in am sometimes; but after a 10-15 minute walk at night it hurts Prior treatment: years ago Prior home health care respiratory therapist: years ago and it did not help. Ortho surgeon ordered x- rays and recommended PT which he did and received no benefit. Exercise/Activities: Weight lifts at [employer] and he walks regularly. GOALS: walk w/o pain weight lifting w/o pain Vet anticipates Hypnosis at this [place] for weight loss. Reviewed Radiologist's reports: none found in cprs Patient denies bowel/bladder dysfunction saddle anesthesia, recent fevers, infections, night sweats, unexplained weight loss, dysphagia, dysarthria, numbness, diploplia EXAM Patient enters clinic FWB without need of assistive device - without signs of acute distress, antalgia, or gait alteration Patient appears to be well nourished, is well groomed, pleasant, cooperative in NAD, gait and station unremarkable. AAOx3, speech is fluent. Javier's: Neg bilat Rhombergs no sway General exam findings Cursory PE demonstrates no acute or emergent health conditions. No signs of acute pulmonary distress, breathing is steady and non-labored. No distal edema or signs of peripheral circulatory distress. No saddle paresthesia and no acute bowel or bladder dysfunction. Active CERVICAL ROM not performed largely WNL limited and provocative into: Extension Flexion Lateral Bending Rotation UE Motor strength graded 5/5 not performed Sensation grossly intact to light touch DTRs 2+ biceps triceps brachioradialis Cervical Orthopedic Tests not performed Compression Distraction Shoulder depression UE tension test Active LUMBAR ROM limited and provocative into: Extension all other motions are full and non -painful Flexion Lateral Bending Rotation Motor strength graded 5/5 hip flexion 5/5 5/5 knee extension 5/5 5/5 foot dorsifexion 5/5 5/5 foot inversion 5/5 5/5 foot eversion 5/5 5/5 L4-S1 (B) DTR's at L4 & S1 Sensation grossly intact to light touch L4-S1 (B) No clonus appreciated upon ankle dorsiflexion. Denies calf tenderness (B) Lumbar Orthopedic testing: Valsalva Maneuver: Neg SLR/seated slump neg Kemps pos SI jt provocation testing pos Fabere's pos Seated Dural Tension Test neg Direct S-I palpation Neg Soft tissue palpation reveals hypertonicity and tenderness Bilat SI jts, L/S, lumbar and T/L Motion palpation reveals intersegmental lumbar somatic dysfunction with relative joint hypomobility. IMPRESSION: It is reasonable in this case to apply a conservative course of manual therapy to address myofascial and joint findings while encouraging activity and stretching specific to the patient's presentation. PLAN: Treatment #1. I explained all of this to the patient and the patient seemed to understand. Treatment options from least invasive to most with the associated risks, benefits, alternatives, and potential outcomes were discussed in detail. Potential risks associated with spinal manipulative therapy, the following were shared with the patient: Likely (transient mild post-treatment soreness); Less Likely (Bruising, sprain/strain); Rare but potentially serious (disc herniation, fracture); Extremely Rare but serious (epidural spinal hematoma, cauda equina syndrome). Informed consent obtained to provide management consisting of: ~ Lumbar F/D decompression manipulation with the intended goal of the reduction of LBP and limitations related to LBP through the mechanical action of lumbar flexion with a gentle distractive force. ~ MFR as per palpation (10 minutes) ~ Mobilization/SMT to Cervical, Thoracic, and/or Lumbar and S-I regions in lateral decubitus posture ~ Prone or supine thoracic mobilization/SMT ~ Prone hip flexor/quadriceps stretching as per palpation ~ Supine gluteal stretching as per palpation Objectives 01/14/24 decr tenderness over R biceps femoris, lumbar paraspinal mm Restrictions L/S Treatment: active/corrective F/D mechanical lumbar traction with flexion 8 min, lumbar CMT lumbar prone AT Treatment carried out today and well tolerated The prognosis,at this time,is fair to good Short term goals include improvement in excess 25% on regional disability questionnaire and/or NRS over the first 3-4 treatment visits. It was explained to the patient that resolution of soft tissue complaints through conservative management requires compliance with at home recommendations and avoidance of aggravating factors. Self-Care Recommendations: continue exercise at his gym. Take breaks from walking at [employer] tomorrow. Follow w Living Coach ~Patient encouraged to engage in activities such as a walking program with established goals to reduce fear-avoidance behaviors with regard to movement,and improve overall health and fitness. emphasis placed upon function over pain with effort made each day to remain active understanding that normal daily activities may temporarily increase pain experience but are not inherently injurious and should be explored to the extent possible. ~ Activity such as Yoga encouraged to enhance relaxation, flexibility, posture, core stability, balance, and pain modulation. Plan: Pending visit with Living Coach. Consult BFA. Visit 5 F/U 4 weekly Seek urgent care as needed. CMT: chiropractic manipulative therapy SMT: Spinal Manipulative Therapy F/D: Flexion Distraction MFR: Myofascial Release S-I: Sacroiliac MFTP: Myofascial Trigger Point NRS: Numeric Rating Scale N/T: Numbness/Tingling PIR: Post isometric relaxation /es/ [facility]HELLE TATE [facility] CHIROPRACTOR Signed: 01/14/2024 15:00 ROCHELLE TATE [facility]
[2024-11-20 10:19] VITALS: BP 142/70; PULSE 87; RESP 18; TEMP 36.2; O2SAT 93; BMI 32.8
--- NOTE | 2024-11-20 10:20 | AM.OFFVISMDC ---
Intake Vital Signs 11/20/24 10:19 11/20/24 10:41 Height 5 ft 11 in Weight 235 lb BMI 32.8 BP 142/70 H 126/70 Blood Pressure Location Lt brachial Lt brachial Position Sitting Sitting Respiration 18 Pulse 87 Temp 97.1 F Temp Source Temporal Artery Scan Pulse Oximetry (%) 93 Oxygen Delivery Method Room Air Intake Visit Reasons: [facility] G0439 Pest Management Supervisor Required: No Accompanied by: Self / Same As Patient Allergies Penicillins Allergy (Intermediate, Verified 11/20/24 10:21) HIVES peanut (PEANUT) Allergy (Unknown, Verified 11/20/24 10:21) UNKNOWN Medication List - Last Reconciled 11/20/24 by Joanne Bejarano, albuterol sulfate 90 mcg/actuation (Ventolin HFA) 2 puffs inhalation Q6H PRN amlodipine 5 mg PO DAILY antiarthritic combination no.2 (glucosamine-chondroitin) mg PO atorvastatin 40 mg PO .Qod budesonide-formoterol 160-4.5 mcg/actuation (Symbicort) 2 puffs inhalation BID clonazepam 1 mg PO DAILY PRN dextroamphetamine-amphetamine 10 mg ER (Adderall XR) 10 mg PO DAILY escitalopram oxalate (Lexapro) 5 mg PO BID finasteride 1 tab PO DAILY fluticasone propionate 50 mcg/actuation 1 spray intranasal QAM gabapentin 300 mg PO BID lisinopril 2.5 mg PO DAILY metformin 500 mg PO DAILY omeprazole 1 cap PO QAM HPI SWV G0439 HPI Details [facility], [facility] 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 Ronquillo [facility] Medical History Impacted cerumen of both ears Recent change in frequency of bowel movements Left knee pain Post-nasal drip Low back pain GERD (gastroesophageal reflux disease) History of skin cancer Depression Elevated cholesterol HTN (hypertension) History of prostate cancer Surgical History History of cataract surgery H/O colonoscopy Family History Mother No problems noted. Father Tuberculosis Brother No problems noted. Sister No problems noted. Son No problems noted. Son No problems noted. Social History Housing: House Alcohol intake: former Patient Tobacco Use Status: Former Tobacco user Tobacco use type: Cigarette Years Smoked: quit 1999 e-Cigarette/Vaping Use: Never Used Second Hand Smoke Exposure: No Current occupational status: retired Cognitive needs: No Hearing needs: No Vision needs: Yes Questionnaire Medicare Wellness Checkup [age] What gender do you identify with?: male During the past 4 weeks, how much have you been bothered by emotional problems such as feeling anxious, depressed, irritable, sad or downhearted, and blue?: quite a bit During the past 4 weeks, has your physical & emotional health limited your social activities with family, friends, neighbors, or groups?: not at all During the past 4 weeks, how much bodily pain have you generally had?: mild pain During the past 4 weeks, was someone available to help you if you needed & wanted help?: yes, some During the past 4 weeks, what was the hardest physical activity you could do for at least 2 minutes?: moderate Can you get to places out of walking distance without help? (For eg., can you travel alone on buses, taxis or drive your car?): Yes Can you go shopping for groceries or clothes without someone's help?: Yes Can you prepare your own meals?: Yes Can you do your housework without help?: Yes Because of any health problems, do you need the help of another person with your personal care needs such as eating, bathing, dressing or getting around the house?: No Can you handle your own money without help?: Yes During the past 4 weeks, how would you rate your health in general?: fair During the past 4 weeks how have things been going for you?: good & bad parts about equal Are you having difficulties driving your car?: no Do you always fasten your seat belt when you are in a car?: yes, usually During past 4 weeks, have you been bothered by the following: never: Falling or dizzy when standing up, Teeth or denture problems? and Problems using the telephone?, seldom: Tiredness or fatigue?, sometimes: Trouble eating well? and often: Sexual problems? Have you fallen 2 or more times in the past year?: No Are you afraid of falling?: No Are you a smoker?: no During the past 4 weeks, how many drinks of wine, beer, or other alcoholic beverages did you have?: no alcohol at all Do you exercise for about 20 minutes 3 or more times a week?: yes, most of the time Have you been given information to help with the following?: no: Hazards in your house that might hurt you? and no: Keeping track of your medications? How often do you have trouble taking medicines the way you have been told to take them?: I always take medicine as prescribed How confident are you that you can control & manage most of your health problems?: very confident What is your race?: White PHQ-9 Over the last 2 weeks, how often have you been bothered by any of the following problems? 1. Little interest or pleasure in doing things: not at all 2. Feeling down, depressed, or hopeless: not at all 3. Trouble falling or staying asleep, or sleeping too much: several days 4. Feeling tired or having little energy: several days 5. Poor appetite or overeating: several days 6. Feeling bad about yourself - or that you are a failure or have let yourself or your family down: several days 7. Trouble concentrating on things, such as reading the newspaper or watching television: several days 8. Moving or speaking so slowly that other people could have noticed. Or the opposite - being so fidgety or restless that you have been moving around a lot more than usual: not at all 9. Thoughts that you would be better off or of hurting yourself in some way: not at all Total score: 5 Source: Developed by Drs. Abdoulaye White, Mone Robles, Rico Holguin and colleagues, with an educational rasta from [employer]. Review of Systems Const Denies poor appetite and Denies weakness Eyes Denies no additional complaints ENT Reports Normal hearing present, Denies dizziness, Denies nasal congestion, Denies tinnitus and Denies sore throat Card Denies chest pain, Denies syncope, Denies rapid heart rate and Denies dyspnea Resp Denies cough and Denies dyspnea GI Denies change in stool character, Reports constipation, Denies diarrhea, Denies nausea and Denies vomiting Denies dysuria and Denies urinary frequency Neuro Reports Normal hearing present, Denies confusion, Denies dizziness, Denies syncope and Denies weakness Psych Denies confusion Physical Exam Vital Signs: Last Vital Signs Temp 97.1 F 11/20/24 10:19 Pulse 87 11/20/24 10:19 Resp 18 11/20/24 10:19 BP 126/70 11/20/24 10:41 Pulse Ox 93 11/20/24 10:19 Oxygen Delivery Method Room Air 11/20/24 10:19 BMI result Body Mass Index 32.8 Const General: No confusion Orientation/consciousness: No confusion HEENT Head: Yes normocephalic Ears: external ears normal and TM's normal bilaterally Face and sinus: Yes normal facial exam Mouth: moist mucous membranes Throat: Yes tonsils normal Eyes Conjunctivae: conjunctivae normal Pupils: Equal, round and reactive pupils present and Pupil accommodation reflex normal Direct Ophthalmoscopy: normal light reflex Neck Neck: No lymphadenopathy Thyroid: Thyroid normal Chest Chest palpation & inspection: normal inspection of the chest Resp Effort & Inspection: normal respiratory effort and no audible wheezes Auscultation: clear to auscultation bilaterally, no crackles, no wheezes and lung sounds not diminished Cardio Rate: regular rate Rhythm: regular rhythm Peripheral pulses: radial pulses present and dorsalis pedis present GI Other: declined Palpation (GI): no masses Auscultation: normal bowel sounds and normoactive bowel sounds Rectal Exam - Male: Yes deferred Male General Exam: Yes normal external exam Skin General skin exam: no rashes or lesions noted Rashes: no rashes Neuro General: No confusion Cranial nerves: Yes Equal, round and reactive pupils present and Yes Normal hearing present Cognition (Neuro): normal cognition Gait exam (Neuro): Normal gait present Motor exam (neuro): 5/5 motor strength present throughout Deep tendon reflexes (DTR's): Right brachioradialis reflex intensity grade: 2+, Left brachioradialis reflex intensity grade: 2+, Right patellar reflex intensity grade: 2+ and Left patellar reflex intensity grade: 2+ Extrem Other: 1+ edema bilateral lower extremity General: No edema Assessment & Plan Assessment & Plan (1) Medicare annual wellness visit, subsequent: Code(s): Z00.00 - Encounter for general adult medical examination without abnormal findings Plan: Patient is advised to eat healthy, keep well hydrated, keep active and have adequate sleep. (2) COPD (chronic obstructive pulmonary disease): Comment: There is a obstructive ventilatory defect consistent with mild COPD. No significant response to bronchodilators noted. Mild decrease in the maximum voluntary ventilation secondary to likely deconditioning. One volumes are within normal limits. The patient does have mild diffusion impairment. Clinical correlation warranted.] Code(s): J44.9 - Chronic obstructive pulmonary disease, unspecified Plan: Patient on albuterol inhaler and Dulera for controller (3) History of prostate cancer: Comment: 2016-w/radiation, Dr. Varela Code(s): Z85.46 - Personal history of malignant neoplasm of prostate Plan: Continue to follow-up with urology (4) Fatty liver: Code(s): K76.0 - Fatty (change of) liver, not elsewhere classified Plan: Low-fat diet and exercise (5) Barretts esophagus: Comment: EGD May 2023 3 years Code(s): K22.70 - 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 Qualifiers: Carter's esophagus type: without dysplasia Qualified Code(s): K22.70 - 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 Plan: Avoid the foods that causes that usually spicy foods, tomato products, juices, coffee, soda and foods that your sensitive to. After eating do not lie down, allow 3-4 hours before in lie down. And keep the head of bed above 30 degrees to avoid the acid from going up. (6) Impaired glucose tolerance: Code(s): R73.02 - Impaired glucose tolerance (oral) Plan: Decrease the amount of carbohydrate intake, pasta, bread, rice and potatoes are all sugar and that is aside from all the sweet stuff, remember that fruits are good but they are Sweet also. (7) Obesity (BMI 30-39.9): Code(s): E66.9 - Obesity, unspecified Plan: Diet and exercise (8) Hypertension: Code(s): I10 - Essential (primary) hypertension Qualifiers: Hypertension type: primary hypertension Qualified Code(s): I10 - Essential (primary) hypertension Plan: Continue with blood pressure medication. Decrease salt intake and exercise patient is on lisinopril 2.5 mg once a day amlodipine 5 mg once a day (9) Elevated cholesterol: Code(s): E78.00 - Pure hypercholesterolemia, unspecified Plan: Avoid fried foods, chicken skin, eggs, butter margarine, pastries and meat. Be it pork or beef they have a lot of cholesterol on atorvastatin 40 mg once a day (10) Generalized anxiety disorder: Comment: Mariposa Hooker Code(s): F41.1 - Generalized anxiety disorder Plan: Continue with counseling and therapy Plan History of Present Illness The patient is a 79-year-old male presenting for an annual wellness visit. He has a history of Carter's esophagus, hypertension, hypercholesterolemia, generalized anxiety disorder, and prostate cancer diagnosed in 2016. The patient also has knee osteoarthritis and impaired glucose tolerance. He has been diagnosed with hepatic steatosis, lumbar spondylosis, ADHD, and COPD. His last colonoscopy was performed in 2020. The patient's last blood work in September showed mild anemia with a hemoglobin level of 13.3 g/dL, normal electrolytes, and stable renal function. His hemoglobin A1c was 6.0%, indicating impaired glucose tolerance. Liver function tests were elevated, consistent with his known hepatic steatosis. The patient is on multiple medications including lisinopril, amlodipine, atorvastatin, metformin, and albuterol inhaler. He reports using albuterol twice daily and has been advised to switch to Symbicort for better control of his COPD symptoms. He has allergies to penicillin and peanuts. The patient denies alcohol and tobacco use. He reports nocturia, waking up four times at night to urinate, which has been discussed with his urologist. His body mass index is 32, indicating obesity. Health Maintenance - Colonoscopy performed in 2020 - Blood pressure management with lisinopril and amlodipine - Cholesterol management with atorvastatin - Diabetes management with metformin - COPD management with albuterol and planned switch to Symbicort - Lifestyle modifications: Low-fat diet and exercise recommended - Vaccinations: Up to date with shingles and tetanus shots Social History - Exercise: Engages in regular walking and exercises, including leg presses and squats - Diet: Reports poor dietary habits, advised to improve diet for weight management - Substance Use: Denies alcohol and tobacco use Review of Systems - General: Denies recent falls or unsteadiness - Cardiovascular: Denies chest pain, reports occasional heartburn - Respiratory: Reports occasional dyspnea, denies waking up short of breath - Gastrointestinal: Reports weekly heartburn, denies nausea, vomiting, or swallowing difficulties - Genitourinary: Reports nocturia, denies urinary incontinence - Neurological: Denies dizziness or syncope Physical Exam General: Cooperative, healthy appearing, comfortable, no acute distress and well developed Orientation: Patient oriented x3 Limitations: No limitations Head: Normal to inspection Ears: Hearing grossly normal bilaterally, earwax noted in one ear Nose: Normal external nose present Face and sinus: Normal facial exam Eyes: Appearance normal, both eyes and all related structures Neck: Normal visual inspection and Yes full ROM Respiratory: Normal respiratory effort and able to speak in complete sentences. Clear to auscultation bilaterally Cardiovascular: Regular rate and rhythm. Normal S1 and S2 GI: Normal to inspection. Soft to palpation and nontender Skin: No rashes or lesions noted, patient has a history of skin cancer Neuro: Patient oriented x3 Extremities: 1+ edema bilateral lower extremity, mild swelling noted Results - Labs: Mild anemia with hemoglobin 13.3 g/dL, normal electrolytes, stable renal function, hemoglobin A1c 6.0% - Liver function tests: Elevated, consistent with hepatic steatosis - Cholesterol: LDL 100 mg/dL as of May 2024 Plan The patient will continue management of hypertension with lisinopril and amlodipine, and hypercholesterolemia with atorvastatin. For COPD, the patient is advised to switch from albuterol to Symbicort for better symptom control, with instructions to rinse the mouth after use to prevent oral thrush. The patient is encouraged to maintain a low-fat diet and regular exercise to manage obesity and improve overall health. Monitoring of liver function tests will continue due to elevated levels, and the patient is advised to avoid hepatotoxic medications. The patient is also advised to avoid NSAIDs to protect renal function and to ensure adequate hydration. Follow-up on nocturia with urology is recommended, and the patient is advised to limit fluid intake before bedtime to reduce nighttime urination. Patient was informed and verbally consented to the use of an ambient scribe for clinic note documentation during this visit. Discussion Notes During the visit, I discussed with the patient the importance of managing his hypertension and hypercholesterolemia with the prescribed medications, lisinopril, amlodipine, and atorvastatin. We reviewed the need to switch from albuterol to Symbicort for COPD management to improve symptom control and reduce the frequency of shortness of breath. I emphasized the importance of a low-fat diet and regular exercise to address obesity and improve overall health outcomes. We also discussed the elevated liver function tests and the need to avoid hepatotoxic medications, as well as the importance of avoiding NSAIDs to protect renal function. The patient was advised to follow up with urology regarding nocturia and to limit fluid intake before bedtime to reduce nighttime urination. Patient Instructions - Continue taking lisinopril, amlodipine, and atorvastatin as prescribed. - Switch to Symbicort for COPD management and rinse mouth after use. - Follow a low-fat diet and engage in regular exercise. - Avoid NSAIDs and ensure adequate hydration. - Limit fluid intake before bedtime to reduce nighttime urination. - Follow up with urology regarding nocturia. Medications: New budesonide-formoterol 160-4.5 mcg/actuation (Symbicort) 2 puffs inhalation BID 10.2 grams 3RF J44.9 - Chronic obstructive pulmonary disease, unspecified budesonide-formoterol 160-4.5 mcg/actuation (Symbicort) 2 puffs inhalation BID 10.2 grams 3RF J44.9 - Chronic obstructive pulmonary disease, unspecified Quality Reporting (2019) Depression/Bipolar (159/160/161/177) PHQ-9: Total score: 5 Coding Level of Care Code Medicare Subsequent (G0439) Diagnoses Medicare annual wellness visit, subsequent Z00.00 COPD (chronic obstructive pulmonary disease) J44.9 History of prostate cancer Z85.46 Fatty liver K76.0 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 K22.70 Carter's esophagus type: without dysplasia Impaired glucose tolerance R73.02 Obesity (BMI 30-39.9) E66.9 Primary hypertension I10 Hypertension type: primary hypertension Elevated cholesterol E78.00 Generalized anxiety disorder F41.1
[2024-11-20 10:41] VITALS: BP 126/70
--- OUTSIDE RECORDS SUMMARY | 2024-11-20 11:23 | XMS_ITS ---
Author Name [facility] Organization Unknown Care Team Organization Name Specialty Phone Email Start Date End [facility] Claudine Cloud [facility] 03/03/2022 12/13/19 24
--- OUTSIDE RECORDS SUMMARY | 2024-11-20 11:23 | XMS_ITS | Patient Health Record ---
Author Organization [facility] Address [address] [place] [address] Care Team Providers Care [employer] Operator Name Role Phone Joanne Bejarano MD Primary Care Provider Abdoulaye Cast [phone] Allergies Allergen (clinical drug ingredient) Drug/Non Drug [...] Problem Gastro-esophage al reflux disease without esophagitis (224007935) Gastro-esophageal reflux disease without esophagitis (K21.9) Active confirmed Problem [id number] Encounter for screening for malignant neoplasm of colon (Z12.11) Active confirmed Problem 214958993 Change in bowel habits (R19.4) Active confirmed Problem 118548308 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 Problem 58094510 Heartburn (R12) Active confirmed Problem 319746491 Gastroesophageal reflux disease without esophagitis (K21.9) Active confirmed Problem 03262351 Hiatal hernia (K44.9) Active confirmed Problem Gastritis, chron ic (K29.50) Active confirmed Problem 584773760 Long-term use of aspirin therapy (Z79.82) Active confirmed Problem 42260865 Diarrhea, unspecified type (R19.7) Active confirmed Problem 523609523 Gastroesophageal reflux disease, unspecified whether esophagitis present [...] OF [place] [address] [place] [address] [phone] [id number] MARIAELENA VOGTELIO Bustamante Self - patient is the insured [employer] CLAIM[employer] [address] [place] [address] [id number] ELIO MONTOYA Self - patient is the insured Medical (General) History Medical History History ICD Code Prostate cancer 2016 with radiation jaun tmejones Denies OH,DM,CVA,Lung disease,renal dise ase HTN Depression Hyperlipidemia Negative [...]
--- OUTSIDE RECORDS SUMMARY | 2024-11-20 11:23 | XMS_ITS | Clinical Summary ---
Author Organization [address] Address [address] [place] [phone] Phone Care Team Providers Care Oxide Furnace Tender Name Role Phone Edna Laird MD Primary [...] Active Problems Problem Noted Date Diagnosed Date Stage 3 chronic kidney disease ([facility] V24, [facility] V28) 08/17/2024 Hiatal hernia 01/03/2021 Sigmoid diverticulosis 01/03/2021 Overview (04/20/2024): Colonoscopy 08/2020 Internal hemorrhoids 01/03/2021 Overview (04/20/2024): Colonoscopy 08/2020 PVD (peripheral vascular disease) ([facility]) 11/14/2020 Prediabetes 08/30/2020 Obesity (BMI 30.0-34.9) 07/22/2020 Dysthymia 08/26/2017 Hypertension 12/12/2010 Dizziness 07/26/2009 Overview (04/20/2024): See neurology note 06/04/09, nonspecific MRI. Anxiety 05/10/2009 Hematuria 10/25/2007 Overview (04/20/2024): FOLLOWED BY dR. BERYL OKEEFE, ?KIDNEY CYST, REPEATED us, ct Pt now is followed by Dr. Varela, prostate biopsy, cystoscopy (-) 2008 IMO update Renal cyst 10/25/2007 Overview (04/20/2024): US 04/02, competely negative Hyperlipidemia 01/21/2006 Encounters Date Type Department Care Team Description 08/24/2024 3:02 PM EDT - 08/24/2024 11:59 PM EDT Hospital Encounter Radiology Department - [address] [id number] Stage 3 chronic kidney disease, unspecified whether stage 3a or 3b CKD ([facility] V24, [facility] V28) Discharge Disposition: Home or Self Care from Last 3 Months Immunizations Name Administration Dates Next Due Influenza [...] of colonoscopy PVD (peripheral vascular dis ease) ([facility] V24) 11/14/2020 DX:PVD (peripheral vascular disease) ([facility]) Family History Medical History Relation Name Comments Alcohol abuse Brother Tuberculosis Father Heart attack Mother from [place] ag e 74, stroke Relation Name Status [...] Sign Reading Time Taken Comments Blood Pressure 118/68 08/17/2024 3:45 PM EDT Pulse 73 08/17/2024 3:45 PM EDT Temperature - - Respiratory Rate - - Oxygen Saturation - - Inhaled Oxygen Concentration - - Weight 108 kg (238 lb) 08/17/2024 3:45 PM EDT Height - - Body Mass Index - - Plan of Treatment Upcoming Encounters Date Type Department Care Team (Late st Contact Info) Description 09/06/2025 3:30 PM EDT Office Visit Nephrology - [place] [address] [place] [address] Keyshawn Clinton MD [address] [facility] [address] [place] [address] Health Maintenance Due Date Last Done Comments Falls Risk Assessment 04/04/2022 Social Influencers of Health Screening 04/04/2022 Medicare Annual Wellness Visit 11/10/2023 11/09/2022 COVID-19 Vaccine ( season) 2023 03/21/2022, 03/11/2021, 07/23/2020, Additional history exists Depression Screening 04/26/2024 Influenza Vaccine (#1) 2024 , 12/29/2022, 03/21/2022, Additional history exists Cholesterol Screening (Lipid Panel) 06/28/2025 06/28/2020 Hypertension/CHF/CAD Annual BMP Blood Test 08/07/2025 08/07/2024, 07/23/2022 DTaP,Tdap,and Td Vaccines (4 - Td or Tdap) 09/12/2030 09/12/2020, 01/18/2018, 05/23/2007 Hepatitis C Screening Completed 07/11/2013 Zoster Vaccines Completed 09/12/2020, 02/0 05/2020, 03/29/2020, Additional history exists Pneumococcal Vaccine: 50+ Years Completed 02/20/2021, 02/16/2020, 03/03/2016, Additional history exists RSV Immunization Adult Patients Completed 01/26/2023 HIB Vaccines Aged Out No longer eligi [...] age to complete this topic Meningococcal B Vaccine Aged Out No l onger eligible based on patient's age to complete this topic RSV Immunization Patients Under 20 months Aged Out No longer eligible based on patient's age to complete this topic Varicella Vaccines Aged Out No longer eligible based on patient's age to complete this topic Procedures Procedure Name Priority Date/Time Associated Diagnosis Comments US RETROPERITONEAL LIMITED Routine 08/24/2024 3:18 PM EDT Stage 3 chronic kidney disease, unspecified whether stage 3a or 3b CKD (CMS/HCC V24, CMS/HCC V28) RENAL FUNCTION PANEL Routine 08/07/2024 1:41 PM EDT Prediabetes Hypertension, unspecified type Renal cyst LIPID PANEL Routine 06/28/2020 HEPATITIS C SCREENING Routine 07/11/2013 from Last 3 Months or Most Recently Relevant to Health Maintenance Results * US Retroperitoneal Limited (08/24/2024 3:18 PM EDT) Anatomical Region Laterality Modality Body Ultrasound 08/24/2024 4:34 PM EDT Impressions 08/24/2024 4:36 PM EDT 1. Left mid pole renal cyst. 2. No renal calculi or hydronephrosis bilaterally. -------- FINAL REPORT -------- Dictated By: Yolanda Grey Dictated Date: 08/24/2024 16:34 ET Assigned Physician: Yolanda Grey Reviewed and Electronically Signed By: Yolanda Grey Signed Date: 08/24/2024 16:36 ET Workstation ID: [id number] Transcribed By: Self Edit Transcribed Date: 08/24/2024 16:34 ET Narrative 08/24/2024 4:36 PM EDT EXAM: RENAL ULTRASOUND HISTORY: flank pain COMPARISON: Renal ultrasound from 12/16/2020 TECHNIQUE: Vinson scale and color Doppler images were obtained of the kidneys and bladder. FINDINGS: Right kidney: measures 11.1 cm in length and is sonographically unremarkable. Left kidney: measures 10.7 cm in length and is normal in echogenicity. Within the mid pole is a 4.2 x 3.5 x 3.7 cm anechoic thin-walled cyst. No hydronephrosis bilaterally Bladder: Not evaluated, bladder decompressed Procedure Note Yolanda Grey MD - 08/24/2024 EXAM: RENAL ULTRASOUND HISTORY: flank pain COMPARISON: Renal ultrasound from 12/16/2020 TECHNIQUE: Vinson scale and color Doppler images were obtained of thekidneys and bladder. FINDINGS: Right kidney: measures 11.1 cm in length and is sonographicallyunremarkable. Left kidney: measures 10.7 cm in length and is normal in echogenicity.Within the mid pole is a 4.2 x 3.5 x 3.7 cm anechoic thin-walled cyst. No hydronephrosis bilaterally Bladder: Not evaluated, bladder decompressed IMPRESSION: 1. Left mid pole renal cyst. 2. No renal calculi or hydronephrosis bilaterally. -------- FINAL REPORT -------- Dictated By: Yolanda Grey Dictated Date: 08/24/2024 16:34 ET Assigned Physician: Yolanda Grey Reviewed and Electronically Signed By: Yolanda Grey Signed Date: 08/24/2024 16:36 ET Workstation ID: [id number] Transcribed By: Self Edit Transcribed Date: 08/24/2024 16:34 ET us Keyshawn Clinton MD [facility] [place] PROCEDURES Final Result * Renal function panel (08/07/2024 1:41 PM EDT) Sodium 143 133 - 145 mmol/L LAB CHEMISTRY METHOD 08/07/2024 5:47 PM EDT [facility] Potassium 4.5 3.5 - 5.5 mmol/L LAB CHEMISTRY METHOD 08/07/2024 5:47 PM EDT [facility] Chloride 109 96 - 110 mmol/L LAB CHEMISTRY METHOD 08/07/2024 5:47 PM [facility] CO2 30 21 - 32 mmol/L LAB CHEMISTRY METHOD 08/07/2024 5:47 PM [facility] Anion Gap 4 3 - 11 LAB CHEMISTRY METHOD 08/07/2024 5:47 PM [facility] Glucose 89 70 - 100 mg/dL LAB CHEMISTRY METHOD 08/07/2024 5:47 PM [facility] BUN 18 5 - 25 mg/dL LAB CHEMISTRY METHOD 08/07/2024 5:47 PM [facility] Creatinine 1.25 0.70 - 1.30 mg/dL LAB CHEMISTRY METHOD 08/07/2024 5:47 PM [facility] eGFR 60 >=60 mL/min/1. 73m2 LAB CHEMISTRY METHOD 08/07/2024 5:47 PM [facility] Comment:Calculation based on the Chronic Kidney Disease Epidemiology Collaboration (CKD-EPI) equation refit without adjustment for race. BUN/Creatinine Ratio 14.4 LAB CHEMISTRY METHOD 08/07/2024 5:47 PM [facility] Albumin 3.9 3.2 - 5.0 g/dL LAB CHEMISTRY METHOD 08/07/2024 5:47 PM [facility] Calcium 9.8 8.5 - 10.5 mg/dL LAB CHEMISTRY METHOD 08/07/2024 5:47 PM [facility] Phosphorus 3.8 2.5 - 4.5 mg/dL LAB CHEMISTRY METHOD 08/07/2024 5:47 PM [facility] Blood Venous blood specimen / Unknown Venipuncture / Unknown 08/07/2024 1:41 PM EDT 08/07/2024 1:41 PM EDT us Keyshawn Clinton MD LAB BLOOD ORDERABLES Final Res ult [facility] [address] [place] [address], * Lipid panel (06/28/2020) LDL/HDL Ratio 3 0 - 4 Triglycerides 76 0 - 150 mg/dL Cholesterol 144 0 - 200 mg/dL HDL 49 >=40 mg/dL LDL Cholesterol 80 0 - 100 mg/dL Blood Venous blood specimen / Unknown Historical Provider LAB BLOOD ORDERABLES Odalys l Result * Hepatitis C Screening (07/11/2013) Hepatitis C Screening abstracted Historical Provider HEALTH MAINTENANCE Final Result from Last 3 Months or Most Recently Relevant to Health Maintenance Insurance MEDICARE [facility] Care Teams Oxide Furnace Tender Relationship Specialty Start Date End Date Edna Laird MD [address] [place] [address] PCP - General Internal Medicine 9/10/21
== END 2024-11-20 11:07 | disposition home or self-care (01) ==
LOC: HO.HMCH 10:18
PROVIDERS: PCP Internal Medicine; Visit Provider Internal Medicine
DX: Z00.00 Encounter for general adult medical examination without abnormal findings (principal); J44.9 Chronic obstructive pulmonary disease, unspecified; E66.9 Obesity, unspecified; Z68.32 Body mass index [BMI] 32.0-32.9, adult; Z85.46 Personal history of malignant neoplasm of prostate; K76.0 Fatty (change of) liver, not elsewhere classified; K22.70 Barrett's esophagus without dysplasia; R73.02 Impaired glucose tolerance (oral); I10 Essential (primary) hypertension; E78.00 Pure hypercholesterolemia, unspecified; F41.1 Generalized anxiety disorder

== ENCOUNTER 2025-01-18 12:03 | Outpatient (REF) | payer MEDICARE, SELFPAY ==
[2025-01-18 12:42] LABS: MANUAL DIFF FLAG NO
[2025-01-18 12:59] LABS: Hematocrit 42.1 % (42.0-52.0); Hemoglobin 13.5 g/dl (14.0-18.0); Imm Gran Abs Auto 0.01 X10*3/uL (0.00-0.03); Imm Gran Pct Auto 0.2 % (0.0-0.4); Lymphocytes Absolute Auto 1.3 X10*3/uL (1.2-4.9); Mean Corpuscular HGB Conc 32.1 g/dl (31.0-36.0); Mean Corpuscular Hemoglobin 26.5 pg (27.0-33.0); Mean Corpuscular Volume 82.7 fL (80.0-98.0); NRBC Abs Auto 0.000 X10*3/uL (0.0-0.012); NRBC Pct Auto 0.0 /100WBC (0.0-0.2); Platelet Count 187 X10*3/uL (160-400); Red Blood Count 5.09 X10*6/uL (4.60-5.80); Reticulocytes Absolute 0.059 X10*6/uL (0.026-0.095); White Blood Count 4.7 X10*3/uL (4.8-10.8)
[2025-01-18 13:16] LABS: Hemoglobin A1C 159.0909 umol/L
[2025-01-18 14:04] LABS: Alanine Aminotransferase 32 U/L (0-40); Albumin Level 4.2 g/dL (3.5-5.0); Alkaline Phosphatase 93 U/L (39-117); Anion Gap 11 (12-20); Aspartate Amino Transferase 37 U/L (5-37); Blood Urea Nitrogen 26 mg/dL (9-16); Calcium 9.6 mg/dL (8.4-10.2); Carbon Dioxide 28 mmol/L (22-29); Chloride 109 mmol/L (96-108); Estimated Glomerular Filt Rate 58; Iron 98 mcg/dL (45-160); Percent Iron Saturation 39 % (15-50); Potassium 4.6 mmol/L (3.3-5.1); Sodium 143 mmol/L (135-145); Total Iron Binding Capacity 254 mcg/dL (228-428); Total Protein 6.7 g/dL (6.5-8.0); Unsaturated Iron Binding 156 ug/dL
[2025-01-18 14:15] LABS: Folate 11.9 ng/mL (> or = 4.0); Vitamin B12 559 pg/mL (200-900)
--- OUTSIDE RECORDS SUMMARY | 2025-01-18 17:06 | XMS_ITS | Patient Health Record ---
Author Organization [facility] Address [address] [place] [address] Care Team Providers Care Granular Operator Name Role Phone Joanne Bejarano MD Primary Care Provider Abdoulaye Cast [phone] Allergies Allergen (clinical drug ingredient) Drug/Non Drug [...] Problem Gastro-esophage al reflux disease without esophagitis (781075163) Gastro-esophageal reflux disease without esophagitis (K21.9) Active confirmed Problem 917330779 Encounter for screening for malignant neoplasm of colon (Z12.11) Active confirmed Problem 890152389 Change in bowel habits (R19.4) Active confirmed Problem 271632896 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 Problem 60755821 Heartburn (R12) Active confirmed Problem 542251823 Gastroesophageal reflux disease without esophagitis (K21.9) Active confirmed Problem 20793920 Hiatal hernia (K44.9) Active confirmed Problem Chronic gastritis (1698635) Gastritis, chronic (K29.50) Active confirmed Problem 771541424 Long-term use of aspirin therapy (Z79.82) Active confirmed Problem 77091250 Diarrhea, unspecified type (R19.7) Active confirmed Problem 353739208 Gastroesophageal reflux disease, unspecified whether esophagitis present [...] [place] [address] [place] [address] [id number] ELIO MONTOYA Self - patient is the insured [employer] [address] [place] [address] [id number] ELIO MONTOYA Self - patient is the insured Medical (General) History Medical History History ICD Code Prostate cancer 2016 with radiation jaun tments Denies SD,DM,CVA,Lung disease,renal dise ase HTN Depression [...]
== END 2025-01-18 12:04 | disposition home or self-care (01) ==
LOC: HO.LAB 12:03
PROVIDERS: PCP Internal Medicine; Visit Provider Internal Medicine
DX: Z13.1 Encounter for screening for diabetes mellitus (principal); N28.9 Disorder of kidney and ureter, unspecified
CPT/HCPCS: 36415; 80053; 82607; 82746; 83036; 83540; 85025; 85045

== ENCOUNTER 2025-01-23 13:25 | Outpatient (AMB) | payer MEDICARE, SELFPAY ==
--- NOTE | 2025-01-23 13:31 | MHC.PC.OV ---
Vital Signs 01/23/25 13:32 Height 5 ft 11 in Weight 236 lb 4 oz BMI 32.9 BP 140/64 H Blood Pressure Location Lt brachial Position Sitting Respiration 18 Pulse 82 Pulse Source Pulse Oximeter Temp 97.3 F Temp Source Temporal Artery Scan Pulse Oximetry (%) 94 Oxygen Delivery Method Room Air Intake Visit Reasons: [facility] 02/02 Demurrage Agent Required: No Accompanied by: Self / Same As Patient Allergies Penicillins Allergy (Intermediate, Verified 01/23/25 13:32) HIVES peanut (PEANUT) Allergy (Unknown, Verified 01/23/25 13:32) UNKNOWN Tobacco use date assessed: 01/23/25 Fall risk assessment: No Falls in past year Last assessed Fall Risk: 01/23/25 Dental Screening Dental Screen Date: 01/23/25 Did you have a dental visit in the last 12 months?: Yes Did you have a dental problem in the last 6 months where you did not have access to dental care?: No Was dental information given to patient?: Patient has dentist HPI HPI Comments History of Present Illness Details The patient is a 79-year-old male presenting for a preoperative evaluation for eye surgery. The patient has a history of Chronic Obstructive Pulmonary Disease (COPD) and reports no current chest pain or dyspnea, although he acknowledges the condition. He maintains regular physical activity through walking, which he attributes to managing his symptoms. The patient has been diagnosed with Diabetes Mellitus, with a recent A1c level of 6.2, slightly elevated from a previous 6.0. He has not made any recent dietary changes but is advised to reduce sugar intake to manage his condition better. The patient has a history of prostate cancer and is currently undergoing treatment for it. He reports a history of acid reflux disease and has been advised to avoid dairy, gluten, and sugar to alleviate symptoms. The patient mentions a kidney condition, for which he sees a job analyst annually, and his kidney function tests are within normal limits. He has a history of smoking and alcohol use but has abstained from both for several decades. [facility] Medical History Impacted cerumen of both ears Recent change in frequency of bowel movements Left knee pain Post-nasal drip Low back pain GERD (gastroesophageal reflux disease) History of skin cancer Depression Elevated cholesterol HTN (hypertension) History of prostate cancer Surgical History History of cataract surgery H/O colonoscopy Family History Mother No problems noted. Father Tuberculosis Brother No problems noted. Sister No problems noted. Son No problems noted. Son No problems noted. Social History Housing: House Alcohol intake: former Patient Tobacco Use Status: Former Tobacco user Tobacco use type: Cigarette Years Smoked: quit 1999 e-Cigarette/Vaping Use: Never Used Second Hand Smoke Exposure: No Current occupational status: retired Cognitive needs: No Hearing needs: No Vision needs: Yes Questionnaire Thrive Questionnaire Date Thrive assessed: 10/03/24 I am a: Patient What is your living situation today?: I have a steady place to live Within the past 12 months, did the food you bought not last and you didn't have the money to get more?: Never true Within the past 12 months, did you worry whether your food would run out before you got money to buy more?: Never true Do you have trouble paying for medicines?: No Do you have trouble getting transportation to medical appointments?: No Do you have trouble paying your heating and electricity bill?: No Do you have trouble taking care of your child, family member or friend?: No Do you have trouble with day-to-day activities such as bathing, preparing meals, shopping, managing finances, etc.?: No Are you currently unemployed and looking for a job?: No Are you interested in more education?: No Please select the resources that you would like help with: None Currently or been in a relationship where the following occur: No concerns reported THRIVE Score: 0 RONNIE-7 AMB Questionnaire RONNIE-7 Date RONNIE - 7 assessed: 10/03/24 Source: Developed by Drs. Abdoulaye White, Mone Robles, Rico Holguin and colleagues, with an educational rasta from [employer]. Review of Systems Const Details: Positives besides what was mentioned in HPI are in BOLD Constitutional: No Weight Change, No Fever, No Chills, No Night Sweats, No Fatigue, No Malaise ENT/Mouth: No Hearing Changes, No Ear Pain, No Nasal Congestion, No Sinus Pain, No Hoarseness, No sore throat, No Rhinorrhea, No Swallowing Difficulty Eyes: No Eye Pain, No Swelling, No Redness, No Foreign Body, No Discharge, No Vision Changes Cardiovascular: No Chest Pain, No SOB, No PND, No Dyspnea on Exertion, No Orthopnea, No Claudication, No Edema, No Palpitations Respiratory: No Cough, No Sputum, No Wheezing, No Smoke Exposure, No Dyspnea Gastrointestinal: No Nausea, No Vomiting, No Diarrhea, No Constipation, No Pain, No Heartburn, No Anorexia, No Dysphagia, No Hematochezia, No Melena, No Flatulence, No Jaundice Genitourinary: No Dysmenorrhea, No DUB, No Dyspareunia, No Dysuria, No Urinary Frequency, No Hematuria, No Urinary Incontinence, No Urgency, No Flank Pain, No Urinary Flow Changes, No Hesitancy Musculoskeletal: No Arthralgias, No Myalgias, No Joint Swelling, No Joint Stiffness, No Back Pain, No Neck Pain, No Injury History Skin: No Skin Lesions, No Pruritis, No Hair Changes, No Breast/Skin Changes, No Nipple Discharge Neuro: No Weakness, No Numbness, No Paresthesias, No Loss of Consciousness, No Syncope, No Dizziness, No Headache, No Coordination Changes, No Recent Falls Psych: No Anxiety/Panic, No Depression, No Insomnia, No Personality Changes, No Delusions, No Rumination, No SI/HI/AH/VH, No Social Issues, No Memory Changes, No Violence/Abuse Hx., No Eating Concerns Heme/Lymph: No Bruising, No Bleeding, No Transfusions History, No Lymphadenopathy Endocrine: No Polyuria, No Polydipsia, No Temperature Intolerance Physical exam (Primary Care) Vital Signs: Last Vital Signs Temp 97.3 F 01/23/25 13:32 Pulse 82 01/23/25 13:32 Resp 18 01/23/25 13:32 BP 140/64 H 01/23/25 13:32 Pulse Ox 94 01/23/25 13:32 Oxygen Delivery Method Room Air 01/23/25 13:32 BMI result Body Mass Index 32.9 Tobacco/Smoking Status: Tobacco use Status Tobacco use date assessed 01/23/25 01/23/25 13:40 Patient Tobacco Use Status Former Tobacco user 01/23/25 13:40 Tobacco use type Cigarette 01/23/25 13:40 e-Cigarette/Vaping Use Never Used 01/23/25 13:40 Thrive Assessment: Date of Thrive Assessment Date Thrive assessed 10/03/24 01/23/25 13:40 Currently or been in a relationship where the following occur: No concerns reported Const Other: Pertinent findings are in BOLD GENERAL APPEARANCE NAD, activity normal for age, well developed/ well nourished, no cyanosis, pallor, or diaphoresis. EYES lids/conjunctiva normal. EARS/NOSE/THROAT Mucous membranes moist, nares normal, lips/teeth normal uvula midline without oral pharyngeal erythema, exudate or swelling TMs normal bilaterally. No lymphangitis/lymphedema. HEAD/NECK normocephalic atraumatic, no facial trauma, neck is supple. RESPIRATORY respiratory effort normal, speaks in full sentences, no tripod position, no accessory muscle use. Lungs clear to auscultation without rhonchi, wheezes, rales CARDIAC Regular rate and rhythm, no edema. ABDOMINAL Soft, ND/NT. No evidence of fluid wave. No pulsatile masses on exam, rebound tenderness, Valverde sign or pain over Mcburney's point. MUSCLES/EXTREMITIES No abnormal range of motion, no swelling. SKIN Warm, pink and dry. No rashes, dermatoses, petechiae or lesions. NEUROLOGICAL Speech is clear and appropriate. Normal level of consciousness. Gait and coordination are normal. 5/5 strength in all extremities. PSYCH Normal mood and affect. Judgement/competence is appropriate Office Procedures EKG [id number], Complete Coding Level of Care Code Est Pt Level 4 (50651) Diagnoses Pre-op evaluation Z01.818 Obesity E66.9 CPT Codes EKG - CPT: 96603-[id number], Complete ([id number]) Assessment & Plan Assessment & Plan (1) Pre-op evaluation: Code(s): Z01.818 - Encounter for other preprocedural examination Category: Medical Plan: Patient is planned for low risk eye surgery. Patient had recent labs done which were within normal limits. A1C 6.2%. ECG with left axis deviation. Most likely age related as the patient does not endorse any chest pain. CXR with atherosclerotic changes on the aorta. RCRI risk is 0.5% based on patient's current history. Although the patient is low risk, however the finding of Left axis deviation and the athersclerosis on the aorta rais suspicion of underlying coronary disease. For this reason we will get a stress test for further assessment. Continue same medications lauryn-operatively. (2) Obesity: Code(s): E66.9 - Obesity, unspecified Category: Medical Plan: Advised on lifestyle modification including reducing dairy, gluten and sugar. Plan I discussed with the patient the importance of managing his diabetes through dietary changes, specifically reducing sugar intake, to prevent complications. We also talked about the benefits of avoiding dairy, gluten, and sugar to manage his acid reflux symptoms. For his upcoming eye surgery, I explained that he is low risk for the surgery. Orders: Orders XR chest 2V Today Z01.818 - Encounter for other preprocedural examination AMB EKG-In Office Today Z01.818 - Encounter for other preprocedural examination CA stress test Today Z01.818 - Encounter for other preprocedural examination
[2025-01-23 13:32] VITALS: BP 140/64; PULSE 82; RESP 18; TEMP 36.3; O2SAT 94; BMI 32.9
--- OUTSIDE RECORDS SUMMARY | 2025-01-23 14:43 | XMS_ITS | Encounter Summary ---
Author Organization [facility] Address [address] [place] [address] Care Team Providers Care Care Navigator Name Role Phone Monique aWn DO Primary Care Pro vider Unavailable Abdoulaye Mott DO Primary Care Provider Edna Curtis MD Primary Care Provider [phone] Reason for Visit * Reason Onset Date Comments TEST RESULTS 09/20/2019 Encounter Details Date Type Department Care Team Description 09/20/2019 Telephone General Surgery - [address] [place] [address] Sanjuanita Wilkins MD [address] [place] [address] [id number] TEST RESULTS Social History Tobacco Use Types [...] filedocumented in this encounter Care Teams Care Navigator Relationship Specialty Start Date End Date Monique Wan, PCP - General Internal Medicine 02/15/15 10/14/20 Abdoulaye Mott DO PCP - General Internal Medicine 10/15/20 01/02/21 Edna Laird MD [address] [place] [id number] PCP - General Internal Medicine 01/03/21 documented as of this encounter
--- OUTSIDE RECORDS SUMMARY | 2025-01-23 14:43 | XMS_ITS | Encounter Summary ---
Author Organization [facility] Address [address] [place] [address] Care Team Providers Care Diesel Technician Mechanic Name Role Phone Javier Boland MD Primary Care Provider Minna vailable Sahil Roque MD Primary Care Provider [phone] Jim Blue MD Primary Care Provider Unavail able Monique Wan DO Primary Care Pro vider Unavailable Abdoulaye Mott DO Primary Care Provider Minna vailable Edna Laird MD Primary Care Provider [phone] Encounter Details Date Type Department Care Team Description 06/28/2006 Hospital Medical Records [address] [place] [id number] Abdoulaye Ronquillo MD Social History Tobacco Use [...] on filedocumented in this encounter Care Teams Diesel Technician Mechanic Relationship Specialty Start Date End Date Javier Boland MD PCP - General 01/23/10 04/25/14 Sahil Roque MD [address] [place] [address] [id number] PCP - General 02/17/00 01/22/10 Jim Blue MD [address] [place] [id number] PCP - General Internal Medicine 04/27/14 02/14/15 Monique Wan, [address] [place] [id number] PCP - General Internal Medicine 02/15/15 10/14/20 Abdoulaye Mott DO [address] [place] [id number] PCP - General Internal Medicine 10/15/20 01/02/21 Edna Laird MD [address] [place] [id number] PCP - General Internal Medicine 01/03/21 documented as of this encounter
--- OUTSIDE RECORDS SUMMARY | 2025-01-23 14:43 | XMS_ITS | Encounter Summary ---
Author Organization [facility] Address [address] [place] [address] Care Team Providers Care Class B Truck Driver Name Role Phone Monique Wan DO Primary Care Pro vider Unavailable Abdoulaye Mott DO Primary Care Provider Edna Curtis MD Primary Care Provider [phone] Encounter Details Date Type Department Care Team Description 03/04/2017 Refill Adult Medicine [address] [id number] Monique Wan DO Social History Tobacco Use [...] on filedocumented in this encounter Care Teams Class B Truck Driver Relationship Specialty Start Date End Date Monique Wan DO PCP - General Internal Medicine 02/15/15 10/14/20 Abdoulaye Mott DO PCP - General Internal Medicine 10/15/20 01/02/21 Edna Laird MD [address] [place] [phone] PCP - General Internal Medicine 01/03/21 documented as of this encounter
--- OUTSIDE RECORDS SUMMARY | 2025-01-23 14:43 | XMS_ITS | Encounter Summary ---
Author Organization [facility] Address [address] [place] [address] Care Team Providers Care Head Of It Name Role Phone Monique Wan DO Primary Care Pro vider Unavailable Abdoulaye Mott DO Primary Care Provider Edna Curtis MD Primary Care Provider [phone] Reason for Visit * Reason Comments E-prescribe Rx Request Encounter Details Date Type Department Care Team Description 05/25/2020 Refill Adult Medicine [address] [address] Monique Wan DO E-prescribe Rx Request Social [...] have Coronavirus / COVID-19? No / Unsure 04/30/2020 9:14 AM EST documented as of this encounter Miscellaneous Notes * Telephone Encounter - Romy Bhardwaj M.A. - 05/27/2020 11:12 AM EST Lab Results Component Value Date NA 143 12/18/2019 K 4.8 12/18/2019 CO2 31 12/18/2019 CL 108 12/18/2019 BUN 19 12/18/2019 CREAT 1.31 12/18/2019 GLU 104 12/18/2019 CA 9.5 12/18/2019 GFR 54 12/18/2019 * Telephone Encounter - Madai Mckenzie - 05/27/2020 9:46 AM EST Patient would like script to be: E-PRESCRIBED/FAXED TO PHARMACY WHEN WAS THE PATIENT'S LAST APPOINTMENT IN ADULT MEDICINE? 04/16/20 WHEN WAS THE LAST TIME THE PATIENT SAW THEIR PCP? 12/26/19 Does patient have an upcoming appointment? Yes 07/05/20 (THE MEDICATION REQUESTED IS ON THE MED [...] / Plan: [place] / Product Type: MEDICARE [id number] documented in this encounter Plan of Treatment Not on file documented as of this encounter Visit Diagnoses Not on filedocumented in this encounter Care Teams Head Of It Relationship Specialty Start Date End Date Monique Wan, PCP - General Internal Medicine 02/15/15 10/14/20 Abdoulaye Mott DO PCP - General Internal Medicine 10/15/20 01/02/21 Edna Laird MD [address] [place] [address] PCP - General Internal Medicine 01/03/21 documented as of this encounter
--- OUTSIDE RECORDS SUMMARY | 2025-01-23 14:43 | XMS_ITS | Encounter Summary ---
Author Organization [facility] Address [address] [place] [address] Care Team Providers Care Print Press Operator Name Role Phone Monique Wan DO Primary Care Pro vider Unavailable Abdoulaye Mott DO Primary Care Provider Edna Curtis MD Primary Care Provider [phone] Encounter Details Date Type Department Care Team Description 05/28/2020 Crime Scene Investigator Report Medical Records [address] [place] [address] Merissa Catalan Social History Tobacco Use Types [...] on filedocumented in this encounter Care Teams Print Press Operator Relationship Specialty Start Date End Date Monique Wan DO PCP - General Internal Medicine 02/15/15 10/14/20 Abdoulaye Mott DO PCP - General Internal Medicine 10/15/20 01/02/21 Edna Laird MD [address] [place] [address] PCP - General Internal Medicine 01/03/21 documented as of this encounter
--- OUTSIDE RECORDS SUMMARY | 2025-01-23 14:43 | XMS_ITS | Encounter Summary ---
Author Organization [facility] Address [address] [place] [address] Care Team Providers Care Debt And Budget Counselor Name Role Phone Edna aLird MD Primary Care Provider [phone] Reason for Visit * Reason Onset Date Comments LAB WORK 08/06/2023 Encounter Details Date Type Department Care Team Description 08/06/2023 Telephone Nephrology - [place] [address] [place] [id number] Keyshawn Clinton MD [address] [place], [place] [phone] LAB WORK Social History Tobacco Use Types Packs/Day Years [...] encounter Miscellaneous Notes * Telephone Encounter - Derick Messina - 08/10/2023 9:29 AM EDT Pt called again requesting callback to verify if lab orders were done.Thx * Telephone Encounter - Sin Meyer - 08/10/2023 9:16 AM EDT Pt calling again, he would like labs ordered, he does not want to cancel this appointment. * Telephone Encounter - Kvng Hermosillogaurav - 08/06/2023 8:55 AM EDT Patient has an appointment 08/19/23. No labs ordered. documented in this encounter Plan of Treatment Not on file documented as of this encounter Visit Diagnoses Not on filedocumented in this encounter Care Teams Debt And Budget Counselor Relationship Specialty Start Date End Date Edna Laird MD [address] [place] [address] PCP - General Internal Medicine 01/03/21 documented as of this encounter
--- OUTSIDE RECORDS SUMMARY | 2025-01-23 14:43 | XMS_ITS | Encounter Summary ---
Author Organization [facility] Address [address] [place] [address] Care Team Providers Care Police Manager Name Role Phone Monique Wan DO Primary Care Pro vider Unavailable Abdoulaye Mott DO Primary Care Provider Edna Curtis MD Primary Care Provider [phone] Encounter Details Date Type Department Care Team Description 04/05/2020 Business Doc Medical Records [address] [place] [address] Abstract, Provider Social History Tobacco Use Types [...] on filedocumented in this encounter Care Teams Police Manager Relationship Specialty Start Date End Date Monique Wan DO PCP - General Internal Medicine 02/15/15 10/14/20 Abdoulaye Mott DO PCP - General Internal Medicine 10/15/20 01/02/21 Edna Laird MD [address] [place] [address] PCP - General Internal Medicine 01/03/21 documented as of this encounter
--- OUTSIDE RECORDS SUMMARY | 2025-01-23 14:43 | XMS_ITS | Encounter Summary ---
Author Organization [facility] Address [address] [place] [address] Care Team Providers Care Meat Stringer Name Role Phone Monique Wan DO Primary Care Pro vider Unavailable Abdoulaye Mott DO Primary Care Provider Edna Curtis MD Primary Care Provider [phone] Reason for Visit * Reason Onset Date Comments APPOINTMENT 04/15/2020 Encounter Details Date Type Department Care Team Description 04/15/2020 Telephone Adult Medicine [address] [address] Monique Wan DO APPOINTMENT Social History Tobacco [...] Miscellaneous Notes * Telephone Encounter - Katelynn Balck - 04/15/2020 11:04 AM EST Patient is [...] on filedocumented in this encounter Care Teams Meat Stringer Relationship Specialty Start Date End Date Monique Wan DO PCP - General Internal Medicine 02/15/15 10/14/20 Abdoulaye Mott DO PCP - General Internal Medicine 10/15/20 01/02/21 Edna Laird MD [address] [place] [address] PCP - General Internal Medicine 01/03/21 documented as of this encounter
--- OUTSIDE RECORDS SUMMARY | 2025-01-23 14:43 | XMS_ITS | Encounter Summary ---
Author Organization [facility] Address [address] [place] [address] Care Team Providers Care Marine Technician Name Role Phone Javier Boland MD Primary Care Provider Minna vailable Sahil Roque MD Primary Care Provider [phone] Jim Blue MD Primary Care Provider Unavail able Monique Wan DO Primary Care Pro vider Unavailable Abdoulaye Mott DO Primary Care Provider Minna vailable Edna Laird MD Primary Care Provider [phone] Encounter Details Date Type Department Care Team Description 01/25/2009 Hospital Medical Records [address] [place] [address] Brian Pa Social History Tobacco Use Types [...] on filedocumented in this encounter Care Teams Marine Technician Relationship Specialty Start Date End Date Javier Boland MD PCP - General 01/23/10 04/25/14 Sahil Roque MD [address] [place] [address] PCP - General 02/17/00 01/22/10 Jim Blue MD [address] [place] [address] PCP - General Internal Medicine 04/27/14 02/14/15 Monique Wan, [address] [place] [address] PCP - General Internal Medicine 02/15/15 10/14/20 Abdoulaye Mott DO [address] [place] [address] PCP - General Internal Medicine 10/15/20 01/02/21 Edna Laird MD [address] [place] [address] PCP - General Internal Medicine 01/03/21 documented as of this encounter
--- OUTSIDE RECORDS SUMMARY | 2025-01-23 14:43 | XMS_ITS | Encounter Summary ---
Author Organization [facility] Address [address] [place] [address] Care Team Providers Care Terminal System Operator Name Role Phone Monique Wan DO Primary Care Pro vider Unavailable Abdoulaye Mott DO Primary Care Provider Edna Curtis MD Primary Care Provider [phone] Encounter Details Date Type Department Care Team Description 05/24/2020 Clinical Data Research Report Medical Records [address] [place] [address] Juventino Varela Social History Tobacco Use Types [...] on filedocumented in this encounter Care Teams Terminal System Operator Relationship Specialty Start Date End Date Monique Wan DO PCP - General Internal Medicine 02/15/15 10/14/20 Abdoulaye Mott DO PCP - General Internal Medicine 10/15/20 01/02/21 Edna Laird MD [address] [place] [address] PCP - General Internal Medicine 01/03/21 documented as of this encounter
--- OUTSIDE RECORDS SUMMARY | 2025-01-23 14:43 | XMS_ITS | Encounter Summary ---
Author Organization [facility] Address [address] [place] [address] Care Team Providers Care Weed Inspector Name Role Phone Monique Wan DO Primary Care Pro vider Unavailable Abdoulaye Mott DO Primary Care Provider Edna Curtis MD Primary Care Provider [phone] Reason for Visit * Reason Onset Date Comments Information Needed 02/22/2017 Encounter Details Date Type Department Care Team Description 02/22/2017 Telephone Adult Medicine [address] [address] Monique Wan DO Information Needed Social History Tobacco Use Types Packs/Day Years [...] encounter Miscellaneous Notes * Telephone Encounter - Kavita Chowdhury - 02/22/2017 1:41 PM EDT Please refax hard copy of lorazpam 0.5 refill documented in this encounter Plan of Treatment Not on file documented as of this encounter Visit Diagnoses Not on filedocumented in this encounter Care Teams Weed Inspector Relationship Specialty Start Date End Date Monique Wan, PCP - General Internal Medicine 02/15/15 10/14/20 Abdoulaye Mott DO PCP - General Internal Medicine 10/15/20 01/02/21 Edna Laird MD [address] [place] [address] PCP - General Internal Medicine 01/03/21 documented as of this encounter
--- OUTSIDE RECORDS SUMMARY | 2025-01-23 14:43 | XMS_ITS | Encounter Summary ---
Author Organization [email or web address] Address [address] [place] [address] Care Team Providers Care Stem Processing Machine Operator Name Role Phone Abdoulaye Mott DO Primary Care Provider Minna Edna Rudd MD Primary Care Provider [phone] Encounter Details Date Type Department Care Team Description 11/26/2020 Freelance Operator Report Medical Records [address] [place] [address] Merissa Catalan Social History Tobacco Use Types [...] on filedocumented in this encounter Care Teams Stem Processing Machine Operator Relationship Specialty Start Date End Date Abdoulaye Mott DO PCP - General Internal Medicine 10/15/20 01/02/21 Edna Laird MD [address] [place] [address] PCP - General Internal Medicine 01/03/21 documented as of this encounter
--- OUTSIDE RECORDS SUMMARY | 2025-01-23 14:43 | XMS_ITS | Encounter Summary ---
Author Organization [facility] Address [address] [place] [address] Care Team Providers Care Tunnel Miner Name Role Phone Monique Wan DO Primary Care Pro vider Unavailable Abdoulaye Mott DO Primary Care Provider Minna Edna Rudd MD Primary Care Provider [phone] Encounter Details Date Type Department Care Team Description 04/13/2019 [facility] Medical Records [address] [place] [address] Abstract, Provider Social History Tobacco Use Types [...] on filedocumented in this encounter Care Teams Tunnel Miner Relationship Specialty Start Date End Date Monique Wan DO PCP - General Internal Medicine 02/15/15 10/14/20 Abdoulaye Mott DO PCP - General Internal Medicine 10/15/20 01/02/21 Edna Laird MD [address] [place], [place] [phone] PCP - General Internal Medicine 01/03/21 documented as of this encounter
--- OUTSIDE RECORDS SUMMARY | 2025-01-23 14:43 | XMS_ITS | Encounter Summary ---
Author Organization [facility] Address [address] [place] [address] Care Team Providers Care Animal Bounty Hunter Name Role Phone Javier Boland MD Primary Care Provider Minna vailable Sahil Roque MD Primary Care Provider [phone] Jim Blue MD Primary Care Provider Unavail able Monique Wan DO Primary Care Pro vider Unavailable Abdoulaye Mott DO Primary Care Provider Minna vailable Edna Laird MD Primary Care Provider [phone] Reason for Visit * Reason Comments Follow Up DR ROQUE Encounter Details Date Type Department Care Team Description 02/07/2004 Telephone Adult Medicine [address] [id number] Sahil Roque MD [address] [place] [address] [phone] Follow Up (DR ROQUE) Social History Tobacco Use Types Packs/Day Years Used Date Smoking Tobacco: Never Assessed Sex Assigned at Date Recorded Not on file Job Start Date Occupation Industry Not on file Not on file Not on file documented as of this encounter Miscellaneous Notes * Telephone Encounter - 02/07/2004 4:31 PM EDTCALL RECEIVED. Contact: DOCUMENTING MESSAGE LEFT FOR PT TO CALL IN REGARDS TO F/U WITH DR ROQUE. NEEDS TO CHANGE APPT FROM JUNE TO JULY AFTER UROLOGIST APPT. documented in this encounter Plan of Treatment Not on file documented as of this encounter Visit Diagnoses Not on filedocumented in this encounter Care Teams Animal Bounty Hunter Relationship Specialty Start Date End Date Javier Boland MD PCP - General 01/23/10 04/25/14 Sahil Roque MD [address] [place] [address] PCP - General 02/17/00 01/22/10 Jim Blue MD [address] [place] [address] PCP - General Internal Medicine 04/27/14 02/14/15 Monique Wan, [address] [address] PCP - General Internal Medicine 02/15/15 10/14/20 Abdoulaye Mott [address] [address] PCP - General Internal Medicine 10/15/20 01/02/21 Edna Laird MD [address] [place] [address] PCP - General Internal Medicine 01/03/21 documented as of this encounter
--- OUTSIDE RECORDS SUMMARY | 2025-01-23 14:43 | XMS_ITS | Encounter Summary ---
Author Organization [facility] Address [address] [place] [address] Care Team Providers Care Group Art Supervisor Name Role Phone Monique Wan DO Primary Care Pro vider Unavailable Abdoulaye Mott DO Primary Care Provider Minna Edna Rudd MD Primary Care Provider [phone] Encounter Details Date Type Department Care Team Description 05/08/2019 Psychiatric Tech Report Medical Records [address] [place] [address] Alejandro Zhao, PAAndersonC Social History Tobacco Use [...] on filedocumented in this encounter Care Teams Group Art Supervisor Relationship Specialty Start Date End Date Monique Wan DO PCP - General Internal Medicine 02/15/15 10/14/20 Abdoulaye Mott DO PCP - General Internal Medicine 10/15/20 01/02/21 Edna Laird MD [address] [place] [address] PCP - General Internal Medicine 01/03/21 documented as of this encounter
--- OUTSIDE RECORDS SUMMARY | 2025-01-23 14:43 | XMS_ITS | Encounter Summary ---
Author Organization [facility] Address [address] [place] [address] Care Team Providers Care Customer Support Coordinator Name Role Phone Monique Wan DO Primary Care Pro vider Unavailable Abdoulaye Mott DO Primary Care Provider Minna Edna Rudd MD Primary Care Provider [phone] Encounter Details Date Type Department Care Team Description 09/14/2019 Orders Only Lab - [place] [address] [place] [address] [id number] Sanjuanita Wilkins MD [address] [place] [address] [phone] Social History Tobacco Use Types Packs/Day Years [...] on filedocumented in this encounter Care Teams Customer Support Coordinator Relationship Specialty Start Date End Date Monique Wan DO PCP - General Internal Medicine 02/15/15 10/14/20 Abdoulaye Mott DO PCP - General Internal Medicine 10/15/20 01/02/21 Edna Laird MD [address] [place] [address] [id number] PCP - General Internal Medicine 01/03/21 documented as of this encounter
--- OUTSIDE RECORDS SUMMARY | 2025-01-23 14:43 | XMS_ITS | Encounter Summary ---
Author Organization [facility] [employer] [facility] Address [address] [place] [address] Care Team Providers Care Er Tech Name Role Phone Monique Wan DO Primary Care Pro vider Unavailable Abdoulaye Mott DO Primary Care Provider Minna Edna Rudd MD Primary Care Provider [phone] Encounter Details Date Type Department Care Team Description 08/16/2017 Business Doc Medical Records [address] [place] [address] Abstract, Provider Social History Tobacco Use Types [...] on filedocumented in this encounter Care Teams Er Tech Relationship Specialty Start Date End Date Monique Wan DO PCP - General Internal Medicine 02/15/15 10/14/20 Abdoulaye Mott DO PCP - General Internal Medicine 10/15/20 01/02/21 Edna Laird MD [address] [place], [place] [phone] PCP - General Internal Medicine 01/03/21 documented as of this encounter
--- OUTSIDE RECORDS SUMMARY | 2025-01-23 14:43 | XMS_ITS | Encounter Summary ---
Author Organization [facility] Address [address] [place] [address] Care Team Providers Care Fuel Oil Truck Driver Name Role Phone Monique Wan DO Primary Care Pro vider Unavailable Abdoulaye Mott DO Primary Care Provider Minna Edna Rudd MD Primary Care Provider [phone] Encounter Details Date Type Department Care Team Description 06/16/2017 [facility] Medical Records [address] [place] [address] Abstract, Provider Social History Tobacco Use Types [...] on filedocumented in this encounter Care Teams Fuel Oil Truck Driver Relationship Specialty Start Date End Date Monique Wan DO PCP - General Internal Medicine 02/15/15 10/14/20 Abdoulaye Mott DO PCP - General Internal Medicine 10/15/20 01/02/21 Edna Laird MD [address] [place], [place] [phone] PCP - General Internal Medicine 01/03/21 documented as of this encounter
--- OUTSIDE RECORDS SUMMARY | 2025-01-23 14:43 | XMS_ITS | Encounter Summary ---
Author Organization [facility] Address [address] [place] [address] Care Team Providers Care Magnet Valve Assembler Name Role Phone Javier Boland MD Primary Care Provider Minna vailable Sahil Roque MD Primary Care Provider [phone] Jim Blue MD Primary Care Provider Unavail able Monique Wan DO Primary Care Pro vider Unavailable Abdoulaye Mott DO Primary Care Provider Minna vailable Edna Laird MD Primary Care Provider [phone] Encounter Details Date Type Department Care Team Description 12/15/2009 Microsoft Developer Report Medical Records [address] [place] [address] Juventino Varela Social History Tobacco Use Types [...] on filedocumented in this encounter Care Teams Magnet Valve Assembler Relationship Specialty Start Date End Date Javier Boland MD PCP - General 01/23/10 04/25/14 Sahil Roque MD [address] [place] [address] [id number] PCP - General 02/17/00 01/22/10 Jim Blue MD [address] [place] [address] PCP - General Internal Medicine 04/27/14 02/14/15 Monique Wan, [address] [place] [address] PCP - General Internal Medicine 02/15/15 10/14/20 Abdoulaye Mott DO [address] [place] [address] PCP - General Internal Medicine 10/15/20 01/02/21 Edna Laird MD [address] [place] [address] PCP - General Internal Medicine 01/03/21 documented as of this encounter
--- OUTSIDE RECORDS SUMMARY | 2025-01-23 14:43 | XMS_ITS | Patient Health Record ---
Author Organization [facility] Address [address] [place] [address] Care Team Providers Care Clinical Staff Rn Name Role Phone Joanne Bejarano MD Primary Care Provider Abdoulaye Cast [phone] Allergies Allergen (clinical drug ingredient) Drug/Non Drug [...] Problem Gastro-esophage al reflux disease without esophagitis (051720894) Gastro-esophageal reflux disease without esophagitis (K21.9) Active confirmed Problem 033960747 Encounter for screening for malignant neoplasm of colon (Z12.11) Active confirmed Problem 847552146 Change in bowel habits (R19.4) Active confirmed Problem 941074908 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 Problem 18153668 Heartburn (R12) Active confirmed Problem 794057037 Gastroesophageal reflux disease without esophagitis (K21.9) Active confirmed Problem 09571655 Hiatal hernia (K44.9) Active confirmed Problem Chronic gastritis (4322569) Gastritis, chronic (K29.50) Active confirmed Problem 174354162 Long-term use of aspirin therapy (Z79.82) Active confirmed Problem 72207968 Diarrhea, unspecified type (R19.7) Active confirmed Problem 592898002 Gastroesophageal reflux disease, unspecified whether esophagitis present [...] [place] [address] [place] [address] [id number] ELIO MONTOYA Self - patient is the insured [employer] CLAIMS [address] [place] [address] [id number] ELIO MONTOYA Self - patient is the insured Medical (General) History Medical History History ICD Code Prostate cancer 2016 with radiation jaun tments Denies CT,DM,CVA,Lung disease,renal dise ase HTN Depression Hyperlipidemia Negative [...]
--- OUTSIDE RECORDS SUMMARY | 2025-01-23 14:43 | XMS_ITS | Encounter Summary ---
Author Organization [facility] Address [address] [place] [address] Care Team Providers Care Pelt Shearer Name Role Phone Monique Wan DO Primary Care Pro vider Unavailable Abdoulaye Mott DO Primary Care Provider Edna Curtis MD Primary Care Provider [phone] Reason for Visit * Reason Onset Date Comments Medication 04/14/2017 Encounter Details Date Type Department Care Team Description 04/14/2017 Telephone Adult Medicine [address] [address] Monique Wan DO Medication Social History Tobacco Use Types Packs/Day Years [...] encounter Miscellaneous Notes * Telephone Encounter - Daquan Dunne M.A. - 04/14/2017 9:33 AM EST New order pended as 90-day supply for [place]. Please sign, thank you. * Telephone Encounter - Latonya Jamison - 04/14/2017 8:50 AM EST Who is calling? The patient Name of the medication escitalopram (LEXAPRO) 5 MG tablet What is the specific problem or interaction? Patient needs this medication to be a 90 day supply please send new script to his mail order pharmacy If the patient is having a problem with taking the med - how long has the problem been going on? N/A documented in this encounter Plan of Treatment Not on file documented as of this encounter Visit Diagnoses Not on filedocumented in this encounter Care Teams Pelt Shearer Relationship Specialty Start Date End Date Monique Wan, DO PCP - General Internal Medicine 02/15/15 10/14/20 Abdoulaye Mott DO PCP - General Internal Medicine 10/15/20 01/02/21 Edna Laird MD [address] [place] [address] PCP - General Internal Medicine 01/03/21 documented as of this encounter
--- OUTSIDE RECORDS SUMMARY | 2025-01-23 14:44 | XMS_ITS | Encounter Summary ---
Author Organization [facility] [facility] Address [address] [place] [address] Care Team Providers Care Lead Technical Writer Name Role Phone Monique Wan DO Primary Care Pro vider Unavailable Abdoulaye Mott DO Primary Care Provider Minna Edna Rudd MD Primary Care Provider [phone] Encounter Details Date Type Department Care Team Description 03/24/2018 Client Resolution Specialist Report Medical Records [address] [place] [address] Juventino Varela Social History Tobacco Use Types [...] filedocumented in this encounter Care Teams Lead Technical Writer Relationship Specialty Start Date End Date Monique Wan DO PCP - General Internal Medicine 02/15/15 10/14/20 Abdoulaye Mott DO PCP - General Internal Medicine 10/15/20 01/02/21 Edna Laird MD [address] [place], [place] [phone] PCP - General Internal Medicine 01/03/21 documented as of this encounter
--- OUTSIDE RECORDS SUMMARY | 2025-01-23 14:44 | XMS_ITS | Encounter Summary ---
Author Organization [facility] Address [address] [place] [address] Care Team Providers Care Food Service Tray Attendant Name Role Phone Edna Laird MD Primary Care Provider [phone] Reason for Visit * Reason Onset Date Comments VNA Call 03/21/2021 Encounter Details Date Type Department Care Team Description 03/21/2021 Refill Adult Medicine [address] [id number] Edna Laird MD [address] [place] [address] [phone] VNA Call Social History Tobacco Use Types [...] encounter Miscellaneous Notes * Telephone Encounter - Halrey FootePLudin - 03/24/2021 10:55 AM EST Med list faxed If Shay calls back please get an extention or direct line * Telephone Encounter - Shay Mccullough - 03/21/2021 3:17 PM EST VNA CALL Which VNA office is calling? [facility] outpatient clinic Full name of caller: Shay The caller is The patient Is the caller at the patients home?: NO Reason for call: requesting medication list for the patient , also asking for a hard copy of med lists if possible Does caller need an urgent call back? NO Was CONTACT Telephone # obtained above?: YES Fax #: [phone] documented in this encounter Plan of Treatment Not on file documented as of this encounter Visit Diagnoses Not on filedocumented in this encounter Care Teams Food Service Tray Attendant Relationship Specialty Start Date End Date Edna Laird MD [address] [place] [phone] PCP - General Internal Medicine 01/03/21 documented as of this encounter
--- OUTSIDE RECORDS SUMMARY | 2025-01-23 14:44 | XMS_ITS | Encounter Summary ---
Author Organization [facility] Address [address] [place] [address] Care Team Providers Care Artificial Intelligence Specialist Name Role Phone Javier Boland MD Primary Care Provider Minna Jim Kowalski MD Primary Care Provider Unavail able Monique Wan DO Primary Care Pro vider Unavailable Abdoulaye Mott DO Primary Care Provider Minna Edna Rudd MD Primary Care Provider [phone] Encounter Details Date Type Department Care Team Description 02/03/2012 Online User Experience Strategist Report Medical Records [address] [place] [address] Juventino Varela Social History Tobacco Use Types [...] on filedocumented in this encounter Care Teams Artificial Intelligence Specialist Relationship Specialty Start Date End Date Javier Boland MD PCP - General 01/23/10 04/25/14 Jim Blue MD PCP - General Internal Medicine 04/27/14 02/14/15 Monique Wan DO PCP - General Internal Medicine 02/15/15 10/14/20 Abdoulaye Mott DO PCP - General Internal Medicine 10/15/20 01/02/21 Edna Laird MD [address] [place] [address] PCP - General Internal Medicine 01/03/21 documented as of this encounter
--- OUTSIDE RECORDS SUMMARY | 2025-01-23 14:44 | XMS_ITS | Encounter Summary ---
Author Organization [facility] [employer] [facility] Address [address] [place] [address] Care Team Providers Care Welding Equipment Repairer Name Role Phone Edna Laird MD Primary Care Provider [phone] Encounter Details Date Type Department Care Team Description 01/23/2021 Supervisor Sewer System Report Medical Records [address] [place] [address] Juventino Varela Social History Tobacco Use Types [...] have Coronavirus / COVID-19? No / Unsure 01/16/2021 9:07 AM EDT documented as of this encounter Plan of Treatment Not on file documented as of this encounter Visit Diagnoses Not on filedocumented in this encounter Care Teams Welding Equipment Repairer Relationship Specialty Start Date End Date Edna Laird MD [address] [place] [address] [id number] PCP - General Internal Medicine 01/03/21 documented as of this encounter
--- OUTSIDE RECORDS SUMMARY | 2025-01-23 14:44 | XMS_ITS | Encounter Summary ---
Author Organization [facility] Address [address] [place] [address] Care Team Providers Care Entry Driver Operator Name Role Phone Monique Wan DO Primary Care Pro vider Unavailable Abdoulaye Mott DO Primary Care Provider Edna Curtis MD Primary Care Provider [phone] Encounter Details Date Type Department Care Team Description 08/14/2020 [facility] Medical Records [address] [place] [address] Abstract, Provider Social History Tobacco Use Types [...] on filedocumented in this encounter Care Teams Entry Driver Operator Relationship Specialty Start Date End Date Monique Wan DO PCP - General Internal Medicine 02/15/15 10/14/20 Abdoulaye Mott DO PCP - General Internal Medicine 10/15/20 01/02/21 Edna Laird MD [address] [place] [address] PCP - General Internal Medicine 01/03/21 documented as of this encounter
--- OUTSIDE RECORDS SUMMARY | 2025-01-23 14:44 | XMS_ITS | Encounter Summary ---
Author Organization [facility] [employer] [facility] Address [address] [place] [address] Care Team Providers Care Auto Driver Name Role Phone Monique Wan DO Primary Care Pro vider Unavailable Abdoulaye Mott DO Primary Care Provider Minna Edna Rudd MD Primary Care Provider [phone] Encounter Details Date Type Department Care Team Description 05/27/2015 Apprentice Cook Report Medical Records [address] [place] [address] Rohan Bond MD Social History Tobacco Use Types Packs/Day [...] on filedocumented in this encounter Care Teams Auto Driver Relationship Specialty Start Date End Date Monique Wan DO PCP - General Internal Medicine 02/15/15 10/14/20 Abdoulaye Mott DO PCP - General Internal Medicine 10/15/20 01/02/21 Edna Laird MD [address] [place], [place] [phone] PCP - General Internal Medicine 01/03/21 documented as of this encounter
--- OUTSIDE RECORDS SUMMARY | 2025-01-23 14:44 | XMS_ITS | Encounter Summary ---
Author Organization [facility] [employer] [facility] Address [address] [place] [address] Care Team Providers Care Pals Nurse Name Role Phone Monique Wan DO Primary Care Pro vider Unavailable Abdoulaye Mott DO Primary Care Provider Minna Edna Rudd MD Primary Care Provider Encounter Details Date Type Department Care Team Description 05/06/2015 Metal Framer Report Medical Records [address] [place] [address] Juventino Varela Social History Tobacco Use Types [...] on filedocumented in this encounter Care Teams Pals Nurse Relationship Specialty Start Date End Date Monique Wan DO PCP - General Internal Medicine 02/15/15 10/14/20 Abdoulaye Mott DO PCP - General Internal Medicine 10/15/20 01/02/21 Edna Laird MD [address] [place], [place] [phone] PCP - General Internal Medicine 01/03/21 documented as of this encounter
--- OUTSIDE RECORDS SUMMARY | 2025-01-23 14:44 | XMS_ITS | Encounter Summary ---
Author Organization [facility] Address [address] [place] [address] Care Team Providers Care Engine Cleaner Name Role Phone Javier Boland MD Primary Care Provider Minna Jim Kowalski MD Primary Care Provider Unavail able Monique Wan DO Primary Care Pro vider Unavailable Abdoulaye Mott DO Primary Care Provider Minna Edna Rudd MD Primary Care Provider [phone] Encounter Details Date Type Department Care Team Description 08/18/2010 Electrical Electronics Engineer Report Medical Records [address] [place] [address] Lucio Victor Social History Tobacco Use Types Packs/Day Years [...] on filedocumented in this encounter Care Teams Engine Cleaner Relationship Specialty Start Date End Date Javier Boland MD PCP - General 01/23/10 04/25/14 Jim Blue MD PCP - General Internal Medicine 04/27/14 02/14/15 Monique Wan DO PCP - General Internal Medicine 02/15/15 10/14/20 Abdoulaye Mott DO PCP - General Internal Medicine 10/15/20 01/02/21 Edna Laird MD [address] [place] [address] PCP - General Internal Medicine 01/03/21 documented as of this encounter
--- OUTSIDE RECORDS SUMMARY | 2025-01-23 14:44 | XMS_ITS | Encounter Summary ---
Author Organization [facility] Address [address] [place] [address] Care Team Providers Care Tape Stringer Name Role Phone Javier Boland MD Primary Care Provider Minna Jim Kowalski MD Primary Care Provider Unavail able Monique Wan DO Primary Care Pro vider Unavailable Abdoulaye Mott DO Primary Care Provider Minna Edna Rudd MD Primary Care Provider [phone] Encounter Details Date Type Department Care Team Description 10/25/2010 OB Hospital Note Adult Urgent Care - [address] [address] Dorothea Eden MD Social History Tobacco Use Types Packs/Day [...] on filedocumented in this encounter Care Teams Tape Stringer Relationship Specialty Start Date End Date Javier Boland MD PCP - General 01/23/10 04/25/14 Jim Blue MD PCP - General Internal Medicine 04/27/14 02/14/15 Monique Wan DO PCP - General Internal Medicine 02/15/15 10/14/20 Abdoulaye Mott DO PCP - General Internal Medicine 10/15/20 01/02/21 Edna Laird MD [address] [place] [address] [phone] PCP - General Internal Medicine 01/03/21 documented as of this encounter
--- OUTSIDE RECORDS SUMMARY | 2025-01-23 14:44 | XMS_ITS | Encounter Summary ---
Author Organization [facility] [facility] Address [address] [place] [address] Care Team Providers Care Heel Sewer Name Role Phone Monique Wan DO Primary Care Pro vider Unavailable Abdoulaye Mott DO Primary Care Provider Minna Edna Rudd MD Primary Care Provider [phone] Encounter Details Date Type Department Care Team Description 05/31/2018 [place] [facility] Medical Records [address] [place] [address] Abstract, Provider Social History Tobacco Use Types [...] filedocumented in this encounter Care Teams Heel Sewer Relationship Specialty Start Date End Date Monique Wan DO PCP - General Internal Medicine 02/15/15 10/14/20 Abdoulaye Mott DO PCP - General Internal Medicine 10/15/20 01/02/21 Edna Laird MD [address] [place], [place] [phone] PCP - General Internal Medicine 01/03/21 documented as of this encounter
--- OUTSIDE RECORDS SUMMARY | 2025-01-23 14:44 | XMS_ITS | Encounter Summary ---
Author Organization [facility] Address [address] [place] [address] Care Team Providers Care Building Service Worker Name Role Phone Monique Wan DO Primary Care Pro vider Unavailable Abdoulaye Mott DO Primary Care Provider Minna Edna Rudd MD Primary Care Provider [phone] Encounter Details Date Type Department Care Team Description 02/19/2015 Controlled Substance Contract with Plan Medical Records [address] [place] [address] Abstract, Provider Social History Tobacco Use Types [...] on filedocumented in this encounter Care Teams Building Service Worker Relationship Specialty Start Date End Date Monique Wan DO PCP - General Internal Medicine 02/15/15 10/14/20 Abdoulaye Mott DO PCP - General Internal Medicine 10/15/20 01/02/21 Edna Laird MD [address] [place], [place] [phone] PCP - General Internal Medicine 01/03/21 documented as of this encounter
--- OUTSIDE RECORDS SUMMARY | 2025-01-23 14:44 | XMS_ITS | Encounter Summary ---
Author Organization [facility] [employer] [facility] Address [address] [place] [address] Care Team Providers Care Information Technology Instructor Name Role Phone Monique Wan DO Primary Care Pro vider Unavailable Abdoulaye Mott DO Primary Care Provider Minna Edna Rudd MD Primary Care Provider [phone] Encounter Details Date Type Department Care Team Description 10/06/2018 Language Arts Teacher Report Medical Records [address] [place] [address] Alejandro Zhao, PAAndersonC Social History Tobacco Use [...] filedocumented in this encounter Care Teams Information Technology Instructor Relationship Specialty Start Date End Date Monique Wan DO PCP - General Internal Medicine 02/15/15 10/14/20 Abdoulaye Mott DO PCP - General Internal Medicine 10/15/20 01/02/21 Edna Laird MD [address] [place] [address] PCP - General Internal Medicine 01/03/21 documented as of this encounter
--- OUTSIDE RECORDS SUMMARY | 2025-01-23 14:44 | XMS_ITS | Encounter Summary ---
Author Organization [facility] Address [address] [place] [address] Care Team Providers Care Wood Car Builder Name Role Phone Monique Wan DO Primary Care Pro vider Unavailable Abdoulaye Mott DO Primary Care Provider Edna Curtis MD Primary Care Provider [phone] Encounter Details Date Type Department Care Team Description 06/03/2019 Refill Adult Medicine [address] [address] Monique Wan DO Social History Tobacco Use [...] / Plan: [place] / Product Type: MEDICARE [id number] documented in this encounter Plan of Treatment Not on file documented as of this encounter Visit Diagnoses Not on filedocumented in this encounter Care Teams Wood Car Builder Relationship Specialty Start Date End Date Monique Wan DO PCP - General Internal Medicine 02/15/15 10/14/20 Abdoulaye Mott DO PCP - General Internal Medicine 10/15/20 01/02/21 Edna Laird MD [address] [place] [address] PCP - General Internal Medicine 01/03/21 documented as of this encounter
--- OUTSIDE RECORDS SUMMARY | 2025-01-23 14:44 | XMS_ITS | Encounter Summary ---
Author Organization [facility] Address [address] [place] [address] Care Team Providers Care Lpta Name Role Phone Monique Wan DO Primary Care Pro vider Unavailable Abdoulaye Mott DO Primary Care Provider Edna Curtis MD Primary Care Provider [phone] Reason for Visit * Reason Comments E-prescribe Rx Request Encounter Details Date Type Department Care Team Description 08/22/2018 Refill Adult Medicine [address] [address] Tahira Ribera PA-C E-prescribe Rx Request Social [...] insurance carrier is: [place] / Plan: [place]ARE-[employer] / Product Type: MEDICARE [id number] documented in this encounter Plan of Treatment Not on file documented as of this encounter Visit Diagnoses Not on filedocumented in this encounter Care Teams Lpta Relationship Specialty Start Date End Date Monique Wan DO PCP - General Internal Medicine 02/15/15 10/14/20 Abdoulaye Mott DO PCP - General Internal Medicine 10/15/20 01/02/21 Edna Laird MD [address] [place] [id number] PCP - General Internal Medicine 01/03/21 documented as of this encounter
--- OUTSIDE RECORDS SUMMARY | 2025-01-23 14:44 | XMS_ITS | Clinical Summary ---
Author Organization [address] Address [address] [place] [phone] Phone Care Team Providers Care Consulting Marine Engineer Name Role Phone Edna Laird MD Primary Care Provider [phone] Allergies Active Allergy Reactions Criticality Noted Date [...] Diagnosed Date Stage 3 chronic kidney disease ([facility] V24, [facility] V28) 08/17/2024 Hiatal hernia 01/03/2021 Sigmoid diverticulosis 01/03/2021 Overview (04/20/2024): Colonoscopy 08/2020 Internal hemorrhoids 01/03/2021 Overview (04/20/2024): Colonoscopy 08/2020 PVD (peripheral vascular disease) ([facility] V24) 11/14/2020 Prediabetes 08/30/2020 Obesity (BMI 30.0-34.9) [...] US 04/02, competely negative Hyperlipidemia 01/21/2006 Immunizations Immunization Administration Dates Next Due Influenza Quadravalent, MDCK [...] of colonoscopy PVD (peripheral vascular dis ease) ([facility] V24) 11/14/2020 DX:PVD (peripheral vascular disease) ([facility]) Family History Medical History Relation Name Comments Alcohol abuse Brother Tuberculosis Father Heart attack Mother from [place] ag [place] 74, stroke Relation Name Status [...] 3:30 PM EDT Office Visit Nephrology - [place] [address] [place] [address] Keyshawn Clinton MD [address] [phone] Health Maintenance Due Date Last Done Comments Falls Risk Assessment 04/04/2022 Social Influencers of Health Screening 04/04/2022 Medicare Annual Wellness Visit 11/10/2023 11/09/2022 Depression Screening 04/26/2024 COVID-19 Vaccine ( season) 2024 03/21/2022, 03/11/2021, 07/23/2020, Additional history exists Influenza Vaccine (#1) 2024 , 12/29/2022, 03/21/2022, [...] Procedure Name Priority Date/Time Associated Diagnosis Comments RENAL FUNCTION PANEL Routine 08/07/2024 1:41 PM EDT Prediabetes Hypertension, unspecified type Renal cyst LIPID PANEL Routine 06/28/2020 HEPATITIS C SCREENING Routine 07/11/2013 from Last 3 Months or Most Recently Relevant to Health Maintenance Results * Renal function panel (08/07/2024 1:41 PM EDT) Sodium 143 133 - 145 mmol/L LAB CHEMISTRY METHOD 08/07/2024 5:47 PM [facility] Potassium 4.5 3.5 - 5.5 mmol/L LAB CHEMISTRY METHOD 08/07/2024 5:47 PM [facility] Chloride 109 96 - 110 mmol/L LAB CHEMISTRY METHOD 08/07/2024 5:47 PM [facility] CO2 30 21 - 32 mmol/L LAB CHEMISTRY METHOD 08/07/2024 5:47 PM [facility] Anion Gap 4 3 - 11 LAB CHEMISTRY METHOD 08/07/2024 5:47 PM [facility] Glucose 89 70 - 100 mg/dL LAB CHEMISTRY METHOD 08/07/2024 5:47 PM [facility] BUN 18 5 - 25 mg/dL LAB CHEMISTRY METHOD 08/07/2024 5:47 PM [facility] Creatinine 1.25 0.70 - 1.30 mg/dL LAB CHEMISTRY METHOD 08/07/2024 5:47 PM [facility] eGFR 60 >=60 mL/min/1. 73m2 LAB CHEMISTRY METHOD 08/07/2024 5:47 PM [facility] Comment:Calculation based on the Chronic Kidney Disease Epidemiology Collaboration (CKD-EPI) equation refit without adjustment for race. BUN/Creatinine Ratio 14.4 LAB CHEMISTRY METHOD 08/07/2024 5:47 PM EDT [facility] Albumin 3.9 3.2 - 5.0 g/dL LAB CHEMISTRY METHOD 08/07/2024 5:47 PM EDT [facility] Calcium 9.8 8.5 - 10.5 mg/dL LAB CHEMISTRY METHOD 08/07/2024 5:47 PM EDT [facility] Phosphorus 3.8 2.5 - 4.5 mg/dL LAB CHEMISTRY METHOD 08/07/2024 5:47 PM EDT [facility] Blood Venous blood specimen / Unknown Venipuncture / Unknown 08/07/2024 1:41 PM EDT 08/07/2024 1:41 PM EDT Keyshawn Clinton MD LAB BLOOD ORDERABLES Final Res ult [facility] [address] [place] [address], * Lipid panel (06/28/2020) LDL/HDL Ratio 3 0 - 4 Triglycerides 76 0 - 150 mg/dL Cholesterol 144 0 - 200 mg/dL HDL 49 >=40 mg/dL LDL Cholesterol 80 0 - 100 mg/dL Blood Venous blood specimen / Unknown Eva Teran MD LAB BLOOD ORDERABLES Odalys l Result * Hepatitis C Screening (07/11/2013) Pathologist [facility] Hepatitis C Screening abstracted Eva Teran MD HEALTH MAINTENANCE Final Result from Last 3 Months or Most Recently Relevant to Health Maintenance Insurance MEDICARE [facility] Care Teams Consulting Marine Engineer Relationship Specialty Start Date End Date Edna Laird MD [address] [place] [address] PCP - General Internal Medicine 01/03/21
--- OUTSIDE RECORDS SUMMARY | 2025-01-23 14:44 | XMS_ITS | Encounter Summary ---
Author Organization [facility] Address [address] [place] [address] Care Team Providers Care Utility Gelatin Maker Name Role Phone Monique Wan DO Primary Care Pro vider Unavailable Abdoulaye Mott DO Primary Care Provider Minna Edna Rudd MD Primary Care Provider [phone] Encounter Details Date Type Department Care Team Description 01/13/2016 Agency Recruiter Report Medical Records [address] [place] [address] Juventino Varela Social History Tobacco Use Types [...] on filedocumented in this encounter Care Teams Utility Gelatin Maker Relationship Specialty Start Date End Date Monique Wan DO PCP - General Internal Medicine 02/15/15 10/14/20 Abdoulaye Mott DO PCP - General Internal Medicine 10/15/20 01/02/21 Edna Laird MD [address] [place], [place] [phone] PCP - General Internal Medicine 01/03/21 documented as of this encounter
--- OUTSIDE RECORDS SUMMARY | 2025-01-23 14:44 | XMS_ITS | Encounter Summary ---
Author Organization [facility] Address [address] [place] [address] Care Team Providers Care Staff Psychologist Name Role Phone Monique Wan DO Primary Care Pro vider Unavailable Abdoulaye Mott DO Primary Care Provider Edna Curtis MD Primary Care Provider [phone] Reason for Visit * Reason Comments E-prescribe Rx Request Encounter Details Date Type Department Care Team Description 10/07/2018 Refill Adult Medicine [address] [address] Tahira Ribera PA-C E-prescribe Rx Request Social [...] / Plan: [place] / Product Type: MEDICARE [id number] documented in this encounter Plan of Treatment Not on file documented as of this encounter Visit Diagnoses Not on filedocumented in this encounter Care Teams Staff Psychologist Relationship Specialty Start Date End Date Monique Wan, PCP - General Internal Medicine 02/15/15 10/14/20 Abdoulaye Mott DO PCP - General Internal Medicine 10/15/20 01/02/21 Edna Laird MD [address] [place] [address] PCP - General Internal Medicine 01/03/21 documented as of this encounter
--- OUTSIDE RECORDS SUMMARY | 2025-01-23 14:44 | XMS_ITS | Encounter Summary ---
Author Organization [facility] Address [address] [place] [address] Care Team Providers Care Calciner Feeder Name Role Phone Javier Boland MD Primary Care Provider Minna Jim Kowalski MD Primary Care Provider Unavail able Monique Wan DO Primary Care Pro vider Unavailable Abdoulaye Mott DO Primary Care Provider Minna Edna Rudd MD Primary Care Provider [phone] Encounter Details Date Type Department Care Team Description 10/28/2012 Release of Information Medical Records [address] [place] [address] Abstract, Provider Social History Tobacco Use Types [...] on filedocumented in this encounter Care Teams Calciner Feeder Relationship Specialty Start Date End Date Javier Boland MD PCP - General 01/23/10 04/25/14 Jim Blue MD PCP - General Internal Medicine 04/27/14 02/14/15 Monique Wan DO PCP - General Internal Medicine 02/15/15 10/14/20 Abdoulaye Mott DO PCP - General Internal Medicine 10/15/20 01/02/21 Edna Laird MD [address] [place] [phone] PCP - General Internal Medicine 01/03/21 documented as of this encounter
--- OUTSIDE RECORDS SUMMARY | 2025-01-23 14:44 | XMS_ITS | Encounter Summary ---
Author Organization [facility] Address [address] [place] [address] Care Team Providers Care Heliotherapist Name Role Phone Monique Wan DO Primary Care Pro vider Unavailable Abdoulaye Mott DO Primary Care Provider Minna Edna Rudd MD Primary Care Provider [phone] Encounter Details Date Type Department Care Team Description 06/07/2019 Release of Information Medical Records [address] [place] [address] Abstract, Provider Social History Tobacco Use Types [...] on filedocumented in this encounter Care Teams Heliotherapist Relationship Specialty Start Date End Date Monique Wan DO PCP - General Internal Medicine 02/15/15 10/14/20 Abdoulaye Mott DO PCP - General Internal Medicine 10/15/20 01/02/21 Edna Laird MD [address] [place] [address] PCP - General Internal Medicine 01/03/21 documented as of this encounter
--- OUTSIDE RECORDS SUMMARY | 2025-01-23 14:44 | XMS_ITS | Encounter Summary ---
Author Organization [facility] [facility] Address [address] [place] [address] Care Team Providers Care Service Observer Name Role Phone Monique Wan DO Primary Care Pro vider Unavailable Abdoulaye Mott DO Primary Care Provider Minna Edna Rudd MD Primary Care Provider [phone] Encounter Details Date Type Department Care Team Description 08/25/2018 Business Doc Medical Records [address] [place] [address] Abstract, Provider Social History Tobacco Use Types [...] on filedocumented in this encounter Care Teams Service Observer Relationship Specialty Start Date End Date Monique Wan DO PCP - General Internal Medicine 02/15/15 10/14/20 Abdoulaye Mott DO PCP - General Internal Medicine 10/15/20 01/02/21 Edna Laird MD [address] [place], [place] [phone] PCP - General Internal Medicine 01/03/21 documented as of this encounter
--- OUTSIDE RECORDS SUMMARY | 2025-01-23 14:44 | XMS_ITS | Encounter Summary ---
Author Organization [facility] Address [address] [place] [address] Care Team Providers Care Enamel Cracker Name Role Phone Javier Boland MD Primary Care Provider Minna vailaJim Hodges MD Primary Care Provider Unavail able Monique Wan DO Primary Care Pro vider Unavailable Abdoulaye Mott DO Primary Care Provider Minna vailaEdna Up MD Primary Care Provider [phone] Reason for Visit * Reason Onset Date Comments Error 01/23/2013 opened in error Encounter Details Date Type Department Care Team Description 01/23/2013 Refill Adult Medicine [address] [address] Javier Boland MD Error (opened in error) Social History Tobacco Use Types Packs/Day Years [...] on filedocumented in this encounter Care Teams Enamel Cracker Relationship Specialty Start Date End Date Javier Boland MD PCP - General 01/23/10 04/25/14 Jim Blue MD PCP - General Internal Medicine 04/27/14 02/14/15 Catina Wanla, PCP - General Internal Medicine 02/15/15 10/14/20 Abdoulaye Mott DO PCP - General Internal Medicine 10/15/20 01/02/21 Edna Laird MD [address] [place] [id number] PCP - General Internal Medicine 01/03/21 documented as of this encounter
--- OUTSIDE RECORDS SUMMARY | 2025-01-23 14:44 | XMS_ITS | Encounter Summary ---
Author Organization [facility] Address [address] [place] [address] Care Team Providers Care Steward/Stewardess Bath Name Role Phone Monique Wan DO Primary Care Pro vider Unavailable Abdoulaye Mott DO Primary Care Provider Edna Curtis MD Primary Care Provider [phone] Encounter Details Date Type Department Care Team Description 01/31/2016 Orders Only Adult Medicine [address] [address] Monique Wan DO Essential hypertension (Primary Dx); Hyperlipidemia, unspecified hyperlipidemia type; Elevated fasting glucose Social History Tobacco Use Types Packs/Day Years [...] documented as of this encounter Results * (ABNORMAL) HEMOGLOBIN A1C (02/25/2016 9:21 AM EDT) Glycosylated Hemoglobin A1C 6.3(H) 4.0 - 6.0 % 02/25/2016 11:02 AM EDT [facility] Comment: HbA1C VALUES MAY NOT ACCURATELY REFLECT MEAN BLOOD GLUCOSE IN PATIENTS WITH HEMOGLOBIN VARIANTS SUCH HbF, HbS. 02/25/2016 9:21 AM EDT 02/25/2016 9:21 AM EDT Monique Farias Coljacob DO LAB Performing Organization Address [facility]/ZIP Co de Phone Number [address] * TRANSAMINASE (SGPT)(ALT) UV- (02/25/2016 9:21 AM EDT) ALT( SGPT) 24 10 - 60 U/L 02/25/2016 11:33 AM EDT [facility] 02/25/2016 9:21 AM EDT 02/25/2016 9:21 AM EDT Monique Landin DO LAB Performing Organization Address [facility] Co de Phone Number [address] * TRANSAMINASE (SGOT)(AST) UV- (02/25/2016 9:21 AM EDT) AST (SGOT) 31 10 - 42 U/L 02/25/2016 11:33 AM EDT [facility] 02/25/2016 9:21 AM EDT 02/25/2016 9:21 AM EDT Monique Landin DO LAB Performing Organization Address [facility] Co de Phone Number [address] * LIPID PROFILE (02/25/2016 9:21 AM EDT) Cholesterol 148 0 - 200 mg/dL 02/25/2016 11:33 AM EDT [facility] TRIGLYCERIDES 120 0 - 150 mg/dL 02/25/2016 11:33 AM EDT [facility] HDL CHOLESTEROL 51 >40 mg/dL 6 11:33 AM EDT [facility] LDL CALCULATED 73 0 - 100 mg/dL 02/25/2016 11:33 AM EDT [facility] TC-HDLC RATIO 3 0.0 - 4.4 mg/dL 02/25/2016 11:33 AM EDT [facility] 02/25/2016 9:21 AM EDT 02/25/2016 9:21 AM EDT Moniquesamir Farias ColClean Platescco DO LAB Performing Organization Address [facility] Co de Phone Number [facility] [address] [facility] * URINALYSIS, COMPLETE (02/25/2016 9:21 AM EDT) SPECIFIC GRAVITY, URINE 1.023 1.005 - 1.030 02/25/2016 10:06 AM EDT [facility] PH, URINE 5.5 5 - 8 02/25/2016 9:51 AM EDT [facility] PROTEIN, URINE NEGATIVE <=TRACE mg/dL 02/25/2016 9:51 AM EDT [facility] GLUCOSE, URINE (UA) NEGATIVE NEGATIVE mg/dL 02/25/2016 9:51 AM EDT [facility] KETONE, URINE NEGATIVE NEGATIVE mg/dL 02/25/2016 9:51 AM EDT [facility] BILIRUBIN URINE NEGATIVE NEGATIVE 02/25/2016 9:51 AM EDT [facility] UROBILINOGEN, URINE 0.2 0.2 - 1.0 E.U./dL 02/25/2016 9:51 AM EDT [facility] BLOOD, URINE NEGATIVE NEGATIVE 02/25/2016 9:51 AM EDT [facility] NITRITE,URINE NEGATIVE NEGATIVE 02/25/2016 9:51 AM EDT [facility] LEUKOCYTE ESTERASE, URINE NEGATIVE NEGATIVE 02/25/2016 9:51 AM EDT [facility] RBC-Urine RARE 0 - 4 /hpf 02/25/2016 12:06 PM EDT [facility] WBC, URINE 0-2 0 - 4 /hpf 02/25/2016 12:06 PM EDT [facility] 02/25/2016 9:21 AM EDT 02/25/2016 9:21 AM EDT Monique Farias ColClean Platescco DO LAB Performing Organization Address [facility]/ZIP Co de Phone Number [facility] [address] [facility] * (ABNORMAL) BASIC METABOLIC PANEL (02/25/2016 9:21 AM EDT) GLUCOSE 114(H) 70 - 100 mg/dL 02/25/2016 11:33 AM EDT [facility] Comment: Reference range applicable to fasting specimens only Based on recommendations from the ADA and AACE, the fasting glucose reference range has been changed to 70-100 mg/dL. This change is effective September 09, 2009 BUN 20 5 - 25 mg/dL 02/25/2016 11:33 AM EDT [facility] CREAT 1.2 0.7 - 1.5 mg/dL 02/25/2016 11:33 AM EDT [facility] GFR > 60 >60 02/25/2016 11:33 AM EDT [facility] Comment: If patient is -[place], multiply result by 1.21 Chronic Kidney Disease: < 60 ml/min/1.73 square meters Kidney Failure: < 15 ml/min/1.73 square meters Sodium 144 133 - 145 mEq/L 02/25/2016 11:33 AM EDT [facility] Potassium 4.4 3.5 - 5.5 mEq/L 02/25/2016 11:33 AM EDT [facility] Chloride 105 96 - 108 mEq/L 02/25/2016 11:33 AM EDT [facility] CO2 26.4 21.0 - 32.0 mEq/L 02/25/2016 11:33 AM EDT [facility] CALCIUM 9.3 8.5 - 10.5 mg/dL 02/25/2016 11:33 AM EDT [facility] 02/25/2016 9:21 AM EDT 02/25/2016 9:21 AM EDT Monique Landin DO LAB Performing Organization Address City/[facility]/ZIP Co de Phone Number [facility] [address] [facility] documented in this encounter Visit Diagnoses Diagnosis Essential hypertension- Primary Unspecified essential hypertension Hyperlipidemia, unspecified hyperlipidemia type Elevated fasting glucose Impaired fasting glucose documented in this encounter Care Teams Steward/Stewardess Bath Relationship Specialty Start Date End Date Monique Wan DO PCP - General Internal Medicine 02/15/15 10/14/20 Abdoulaye Mott DO PCP - General Internal Medicine 10/15/20 01/02/21 Edna Laird MD [address] [place] [id number] PCP - General Internal Medicine 01/03/21 documented as of this encounter
--- OUTSIDE RECORDS SUMMARY | 2025-01-23 14:44 | XMS_ITS | Encounter Summary ---
Author Organization [facility] Address [address] [place] [address] Care Team Providers Care Dude Wrangler Name Role Phone Edna Laird MD Primary Care Provider [phone] Encounter Details Date Type Department Care Team Description 03/21/2021 Business Doc Medical Records [address] [place] [address] Abstract, Provider Social History Tobacco Use Types [...] on filedocumented in this encounter Care Teams Dude Wrangler Relationship Specialty Start Date End Date Edna Laird MD [address] [place] [address] PCP - General Internal Medicine 01/03/21 documented as of this encounter
--- OUTSIDE RECORDS SUMMARY | 2025-01-23 14:44 | XMS_ITS | Encounter Summary ---
Author Organization [facility] Address [address] [place] [address] Care Team Providers Care Sewing Department Supervisor Name Role Phone Monique Wan DO Primary Care Pro vider Unavailable Abdoulaye Mott DO Primary Care Provider Minna Edna Rudd MD Primary Care Provider [phone] Encounter Details Date Type Department Care Team Description 11/04/2015 Refrigerating Engineer Report Medical Records [address] [place] [address] Ezekiel Chacko Social History Tobacco Use Types Packs/Day Years [...] on filedocumented in this encounter Care Teams Sewing Department Supervisor Relationship Specialty Start Date End Date Monique Wan DO PCP - General Internal Medicine 02/15/15 10/14/20 Abdoulaye Mott DO PCP - General Internal Medicine 10/15/20 01/02/21 Edna Laird MD [address] [place], [place] [id number] PCP - General Internal Medicine 01/03/21 documented as of this encounter
--- OUTSIDE RECORDS SUMMARY | 2025-01-23 14:44 | XMS_ITS | Encounter Summary ---
Author Organization [facility] Address [address] [place] [address] Care Team Providers Care Entry Level Electrician Name Role Phone Monique Wan DO Primary Care Pro vider Unavailable Abdoulaye Mott DO Primary Care Provider Edna Curtis MD Primary Care Provider [phone] Encounter Details Date Type Department Care Team Description 06/14/2015 Orders Only Adult Medicine [address] [address] Monique Wan DO Obesity, unspecified obesity severity, unspecified obesity type (Primary Dx) Social History Tobacco Use Types Packs/Day Years [...] documented as of this encounter Results * HEMOGLOBIN A1C (08/15/2015 2:25 PM EDT) Glycosylated Hemoglobin A1C 5.8 4.0 - 6.0 % 08/16/2015 10:17 AM EDT [facility] Comment: HbA1C VALUES MAY NOT ACCURATELY REFLECT MEAN BLOOD GLUCOSE IN PATIENTS WITH HEMOGLOBIN VARIANTS SUCH HbF, HbS. 08/15/2015 2:25 PM EDT 08/15/2015 2:25 PM EDT Monique Landin DO LAB [facility] [address] [facility] documented in this encounter Visit Diagnoses Diagnosis Obesity, unspecified obesity severity, unspecified obesity type- Primary documented in this encounter Care Teams Entry Level Electrician Relationship Specialty Start Date End Date Monique Wan DO PCP - General Internal Medicine 02/15/15 10/14/20 Abdoulaye Mott DO PCP - General Internal Medicine 10/15/20 01/02/21 Edna Laird MD [address] [place] [id number] PCP - General Internal Medicine 01/03/21 documented as of this encounter
--- OUTSIDE RECORDS SUMMARY | 2025-01-23 14:44 | XMS_ITS | Encounter Summary ---
Author Organization [facility] Address [address] [place] [address] Care Team Providers Care Superintendent Meters Name Role Phone Monique Wan DO Primary Care Pro vider Unavailable Abdoulaye Mott DO Primary Care Provider Edna Curtis MD Primary Care Provider [phone] Reason for Visit * Reason Comments E-prescribe Rx Request Encounter Details Date Type Department Care Team Description 08/13/2020 Refill Adult Medicine [address] [address] Monique Wan DO E-prescribe Rx Request Social [...] / Plan: [place] / Product Type: MEDICARE [id number] documented in this encounter Plan of Treatment Not on file documented as of this encounter Visit Diagnoses Not on filedocumented in this encounter Care Teams Superintendent Meters Relationship Specialty Start Date End Date Monique Wan DO PCP - General Internal Medicine 02/15/15 10/14/20 Abdoulaye Mott DO PCP - General Internal Medicine 10/15/20 01/02/21 Edna Laird MD [address] [place] [id number] PCP - General Internal Medicine 01/03/21 documented as of this encounter
--- OUTSIDE RECORDS SUMMARY | 2025-01-23 14:44 | XMS_ITS | Encounter Summary ---
Author Organization [facility] Address [address] [place] [address] Care Team Providers Care Pediatric Geneticist Name Role Phone Monique Wan DO Primary Care Pro vider Unavailable Abdoulaye Mott DO Primary Care Provider Edna Curtis MD Primary Care Provider [phone] Reason for Visit * Reason Onset Date Comments refill request 05/05/2018 Encounter Details Date Type Department Care Team Description 05/05/2018 Refill Adult Medicine [address] [address] Monique Wan DO refill request Social History [...] / Plan: [place] / Product Type: MEDICARE [id number] documented in this encounter Plan of Treatment Not on file documented as of this encounter Visit Diagnoses Not on filedocumented in this encounter Care Teams Pediatric Geneticist Relationship Specialty Start Date End Date Monique Wan DO PCP - General Internal Medicine 02/15/15 10/14/20 Abdoulaye Mott DO PCP - General Internal Medicine 10/15/20 01/02/21 Edna Laird MD [address] [place] [phone] PCP - General Internal Medicine 01/03/21 documented as of this encounter
== END 2025-01-23 14:18 | disposition home or self-care (01) ==
LOC: HO.HMCH 13:26
PROVIDERS: PCP Internal Medicine; Visit Provider Internal Medicine
DX: Z01.818 Encounter for other preprocedural examination (principal); E66.9 Obesity, unspecified; Z68.32 Body mass index [BMI] 32.0-32.9, adult

== ENCOUNTER 2025-01-23 13:25 | Outpatient (REF) | payer MEDICARE, SELFPAY ==
--- NOTE | ~2025-01-23 | XR_ITS ---
EXAMINATION: XR CHEST CLINICAL INFORMATION: Z01.818 - Encounter for other preprocedural examination COMPARISON: November 15, 2023 TECHNIQUE: PA and lateral views FINDINGS: No hyperinflation. No consolidation, pleural effusion or pneumothorax. Cardiomediastinal silhouette size is normal. Calcified plaque thoracic aorta. Tortuosity. There is 8 cm diameter opacity in the lower cardiomediastinal silhouette no clearly identify on the lateral projection. Multilevel spondylosis thoracolumbar spine. XR/XR chest 2V IMPRESSION: No acute airspace disease. Atherosclerosis disease, aorta. Probable hiatal hernia, moderate volume. Electronically signed by: Aydin Reyes MD 01/23/2025 02:56 PM EDT
== END 2025-01-23 13:26 | disposition home or self-care (01) ==
LOC: HO.XRAY 13:25
PROVIDERS: PCP Internal Medicine; Visit Provider Internal Medicine
DX: Z01.818 Encounter for other preprocedural examination (principal); E66.9 Obesity, unspecified; Z68.32 Body mass index [BMI] 32.0-32.9, adult
CPT/HCPCS: 71046; 93005; 99212

== ENCOUNTER → 2025-01-23 14:28 | Outpatient (BNV) | payer MEDICARE, SELFPAY | PROVIDERS: PCP Internal Medicine; Visit Provider Radiology Diagnostic Radiology | DX: Z01.818 Encounter for other preprocedural examination (principal); I70.0 Atherosclerosis of aorta | CPT/HCPCS: 71046 ==

== ENCOUNTER → 2025-01-30 08:07 | Outpatient (REF) | payer MEDICARE, SELFPAY ==
--- NOTE | 2025-01-30 08:09 | CA_ITS ---
Acquisition Time: 2025-01-30 08:12:10 Total Exercise Time: 00:06:00 Test Indications: PREOP Medications: METFORMIN ATROVASTATIN AMLODIPINE Protocol: JAYCEE Max HR: 142 BPM 99% of Pred: 143 BPM Max BP: 144/74 mmHG Max Work Load: 7.0 METS Exercise stress test with exercise 6 min of Jaycee protocol, achieving 99% MPHR, 7 METs, without anginal symptoms, with isolated PAC and PVC, with normotensive reponse to exercise, without EKG changes meeting criteria for ischemia. Test reviewed with Dr Back Referred By: Anuj Gonzalez Electronically Signed By: BRET SCOTT
== END ==
LOC: HO.CARD 08:07
PROVIDERS: PCP Internal Medicine; Visit Provider Internal Medicine
DX: Z01.818 Encounter for other preprocedural examination (principal); I70.90 Unspecified atherosclerosis; I10 Essential (primary) hypertension; E78.00 Pure hypercholesterolemia, unspecified; R73.02 Impaired glucose tolerance (oral); E66.9 Obesity, unspecified; K22.70 Barrett's esophagus without dysplasia; K76.0 Fatty (change of) liver, not elsewhere classified; J44.9 Chronic obstructive pulmonary disease, unspecified; H61.23 Impacted cerumen, bilateral; Z23 Encounter for immunization
CPT/HCPCS: 69209; 90471; 90656; 93017; 96127; 99212

== ENCOUNTER → 2025-01-30 08:09 | Outpatient (BNV) | payer MEDICARE, SELFPAY | PROVIDERS: PCP Internal Medicine; Visit Provider Nurse Practitioner Family | DX: I49.1 Atrial premature depolarization (principal); I49.3 Ventricular premature depolarization | CPT/HCPCS: 93016; 93018 ==

== ENCOUNTER 2025-01-30 10:34 | Outpatient (AMB) | payer MEDICARE, SELFPAY ==
[2025-01-30 10:42] VITALS: BP 132/70; PULSE 102; TEMP 36.1; O2SAT 95; BMI 32.7
--- NOTE | 2025-01-30 10:42 | MHC.PC.OV ---
Vital Signs 01/30/25 10:42 Height 5 ft 11 in Weight 234 lb 2 oz BMI 32.7 BP 132/70 Blood Pressure Location Lt brachial Position Sitting Pulse 102 H Pulse Source Pulse Oximeter Temp 97.0 F Temp Source Temporal Artery Scan Pulse Oximetry (%) 95 Oxygen Delivery Method Room Air Intake Visit Reasons: 3 month f/u, ear flush Allergies Penicillins Allergy (Intermediate, Verified 01/30/25 10:55) HIVES peanut (PEANUT) Allergy (Unknown, Verified 01/30/25 10:55) UNKNOWN Tobacco use date assessed: 01/30/25 Fall risk assessment: No Falls in past year Last assessed Fall Risk: 01/30/25 Dental Screening Dental Screen Date: 01/30/25 Did you have a dental visit in the last 12 months?: Yes Did you have a dental problem in the last 6 months where you did not have access to dental care?: No Was dental information given to patient?: Patient has dentist [facility] Medical History (Updated 01/30/25 @ 11:39 by Joanne Bejarano MD) Impacted cerumen of both ears Recent change in frequency of bowel movements Left knee pain Post-nasal drip Low back pain GERD (gastroesophageal reflux disease) History of skin cancer Depression Elevated cholesterol HTN (hypertension) History of prostate cancer Surgical History History of cataract surgery H/O colonoscopy Family History Mother No problems noted. Father Tuberculosis Brother No problems noted. Sister No problems noted. Son No problems noted. Son No problems noted. Social History Housing: House Alcohol intake: former Patient Tobacco Use Status: Former Tobacco user Tobacco use type: Cigarette Years Smoked: quit 1999 e-Cigarette/Vaping Use: Never Used Second Hand Smoke Exposure: No Current occupational status: retired Cognitive needs: No Hearing needs: No Vision needs: Yes Questionnaire PHQ-9 Over the last 2 weeks, how often have you been bothered by any of the following problems? 1. Little interest or pleasure in doing things: not at all 2. Feeling down, depressed, or hopeless: not at all 3. Trouble falling or staying asleep, or sleeping too much: several days 4. Feeling tired or having little energy: several days 5. Poor appetite or overeating: several days 6. Feeling bad about yourself - or that you are a failure or have let yourself or your family down: several days 7. Trouble concentrating on things, such as reading the newspaper or watching television: several days 8. Moving or speaking so slowly that other people could have noticed. Or the opposite - being so fidgety or restless that you have been moving around a lot more than usual: not at all 9. Thoughts that you would be better off or of hurting yourself in some way: not at all Total score: 5 Source: Developed by Drs. Abdoulaye White, Mone Robles, Rico Holguin and colleagues, with an educational rasta from [employer]. Thrive Questionnaire Date Thrive assessed: 10/03/24 I am a: Patient What is your living situation today?: I have a steady place to live Within the past 12 months, did the food you bought not last and you didn't have the money to get more?: Never true Within the past 12 months, did you worry whether your food would run out before you got money to buy more?: Never true Do you have trouble paying for medicines?: No Do you have trouble getting transportation to medical appointments?: No Do you have trouble paying your heating and electricity bill?: No Do you have trouble taking care of your child, family member or friend?: No Do you have trouble with day-to-day activities such as bathing, preparing meals, shopping, managing finances, etc.?: No Are you currently unemployed and looking for a job?: No Are you interested in more education?: No Please select the resources that you would like help with: None Currently or been in a relationship where the following occur: No concerns reported THRIVE Score: 0 AUDIT C Alcohol Use Questionnaire (AUDIT-C) 1. How often do you have a drink containing alcohol?: Never 3. How often do you have six or more drinks on one occasion?: Never Total Score: 0 RONNIE-7 AMB Questionnaire RONNIE-7 Date RONNIE - 7 assessed: 10/03/24 Feeling nervous, anxious, or on edge: 1 = Several days Not being able to stop or control worryin = Several days Worrying too much about different things: 1 = Several days Trouble relaxin = Several days Being so restless that it is hard to sit still: 1 = Several days Becoming easily annoyed or irritable: 1 = Several days Feeling afraid as if something awful might happen: 1 = Several days Total RONNIE-7 score (0-4 normal; 5-9 mild; 10-14 moderate; 15-21 severe): 7 Source: Developed by Drs. Abdoulaye White, Mone Robles, Rico Holguin and colleagues, with an educational rasta from [employer]. Physical exam (Primary Care) Vital Signs: Last Vital Signs Temp 97.0 F 01/30/25 10:42 Pulse 102 H 01/30/25 10:42 BP 132/70 01/30/25 10:42 Pulse Ox 95 01/30/25 10:42 Oxygen Delivery Method Room Air 01/30/25 10:42 BMI result Body Mass Index 32.7 Tobacco/Smoking Status: Tobacco use Status Tobacco use date assessed 01/30/25 01/30/25 10:56 Patient Tobacco Use Status Former Tobacco user 01/30/25 10:56 Tobacco use type Cigarette 01/30/25 10:56 e-Cigarette/Vaping Use Never Used 01/30/25 10:56 PHQ-9: PHQ-9 Score PHQ-9: Total score 5 01/30/25 11:19 Thrive Assessment: Date of Thrive Assessment Date Thrive assessed 10/03/24 01/30/25 10:56 Currently or been in a relationship where the following occur: No concerns reported ACP: Impacted cerumen bilateral Const General: alert; No acute distress Eyes Conjunctivae: conjunctivae normal Resp Auscultation: clear to auscultation bilaterally Cardio Rate: regular rate Rhythm: regular rhythm GI Inspection: Yes normal to inspection Extrem General: Yes normal to inspection and No edema Office Procedures Cerumen Removal From which ear canal was the cerumen removed: bilateral Removal: irrigation, otoscope w/curette, cerumen loop/spoon and other Notes: patient tolerated procedure well, no complications and ear canal clear 57998-[id number] Irrigation/Lavage Flu Questionnaire Does the patient have a severe egg allergy?: No Does the patient have severe life threatening allergies?: No Does the patient have a fever or illness today?: No Has the patient ever had Guillain-Shenandoah Syndrome?: No Has the patient ever had any past reaction to a flu shot?: No Immunizations Fluarix [id number] (PF) 45 mcg (15 mcg x 3)/0.5 mL IM syringe Performing Provider: Joanne Bejarano MD Performing Location: [facility] [place] [facility] Administered by: Yenny Franklin CMA on 01/30/25 10:59 Dose Route Admin Location Dispensed Lot Number Expiration Date NDC Expeller Operator 0.5 mL IM Left Deltoid 0.5 mL [id number] 10/23/25 10748-256-73 [employer] VIS Given Date VIS Provided VIS Publication Date 01/30/25 Single Vaccine 24 Eligibility Eligibility Date Funding Source Not [facility] Eligible 01/30/25 Private Coding Level of Care Code Est Pt Level 4 (78100) Complex EM visit Add On G2211 Diagnoses Atherosclerosis I70.90 Primary hypertension I10 Hypertension type: primary hypertension Elevated cholesterol E78.00 Impaired glucose tolerance R73.02 Obesity (BMI 30-39.9) E66.9 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 K22.70 Carter's esophagus type: without dysplasia Fatty liver K76.0 COPD (chronic obstructive pulmonary disease) J44.9 Impacted cerumen of both ears H61.23 CPT Codes Office Procedure - CPT: 46105-Rnn Irrigation/Lavage ([id number]) Assessment & Plan Assessment & Plan (1) Atherosclerosis: Code(s): I70.90 - Unspecified atherosclerosis Category: Medical Plan: Control the cholesterol, weight, blood pressure, (2) Hypertension: Code(s): I10 - Essential (primary) hypertension Category: Medical Qualifiers: Hypertension type: primary hypertension Qualified Code(s): I10 - Essential (primary) hypertension Plan: Continue with blood pressure medication. Decrease salt intake and exercise on amlodipine 5 mg once a day lisinopril 2.5 mg once a day (3) Elevated cholesterol: Code(s): E78.00 - Pure hypercholesterolemia, unspecified Category: Medical Plan: Avoid fried foods, chicken skin, eggs, butter margarine, pastries and meat. Be it pork or beef they have a lot of cholesterol LDL goal of less than 70 and triglyceride of less than 150 on atorvastatin 40 mg every other day (4) Impaired glucose tolerance: Code(s): R73.02 - Impaired glucose tolerance (oral) Category: Medical Plan: Decrease the amount of carbohydrate intake, pasta, bread, rice and potatoes are all sugar and that is aside from all the sweet stuff, remember that fruits are good but they are Sweet also. (5) Obesity (BMI 30-39.9): Code(s): E66.9 - Obesity, unspecified Category: Medical Plan: Diet and exercise (6) Barretts esophagus: Comment: EGD May 2023 3 years Code(s): K22.70 - 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 Category: Medical Qualifiers: Carter's esophagus type: without dysplasia Qualified Code(s): K22.70 - 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 Plan: Avoid the foods that causes that usually spicy foods, tomato products, juices, coffee, soda and foods that your sensitive to. After eating do not lie down, allow 3-4 hours before in lie down. And keep the head of bed above 30 degrees to avoid the acid from going up. (7) Fatty liver: Code(s): K76.0 - Fatty (change of) liver, not elsewhere classified Category: Medical Plan: Low-fat diet and exercise (8) COPD (chronic obstructive pulmonary disease): Comment: There is a obstructive ventilatory defect consistent with mild COPD. No significant response to bronchodilators noted. Mild decrease in the maximum voluntary ventilation secondary to likely deconditioning. One volumes are within normal limits. The patient does have mild diffusion impairment. Clinical correlation warranted.] Code(s): J44.9 - Chronic obstructive pulmonary disease, unspecified Category: Medical Plan: Continue with albuterol inhaler and Symbicort (9) Impacted cerumen of both ears: Code(s): H61.23 - Impacted cerumen, bilateral Category: Medical Plan: scoop and irrigation done TM intact Plan History of Present Illness The patient is a 79-year-old male presenting for a follow-up visit after his last annual wellness exam in October. He has a history of essential hypertension, which is currently managed with amlodipine and lisinopril. His blood pressure was noted to be normal during this visit. The patient has gastroesophageal reflux disease with Carter's esophagus, managed with dietary modifications and medications. He also has hypercholesterolemia, with a recent LDL cholesterol level of 100 mg/dL, and is on atorvastatin therapy. He has a history of prostate cancer, which is currently in remission. Additionally, he has impaired glucose tolerance with a hemoglobin A1c of 6.2%, and is advised to manage this with diet and exercise. The patient has chronic obstructive pulmonary disease, for which he uses an albuterol inhaler and Symbicort. He reports that his breathing is not well controlled, especially during exertion, and is considering adding another inhaler to his regimen. A recent chest x-ray showed atherosclerosis and a hiatal hernia, but no acute airspace disease. He also has mild anemia, which has been present since May. Health Maintenance - Colon cancer screening with stool test last performed in August 2020 - Endoscopy performed in May 2023 - Stress test conducted on January 30, showing no EKG changes - Blood pressure management with amlodipine and lisinopril - Cholesterol management with atorvastatin, goal LDL <70 mg/dL - Diabetes management with diet and exercise - COPD management with albuterol inhaler and Symbicort Social History - Exercise: Patient exercises daily, including walking uphill, despite breathing difficulties due to COPD. - Nutrition: Patient has given up sugar and is attending meetings for weight management. Review of Systems - Cardiovascular: Denies chest pain, reports normal blood pressure. - Respiratory: Reports dyspnea on exertion, especially when walking uphill. - Gastrointestinal: Denies acute symptoms, managed GERD with Carter's esophagus. - Endocrine: Reports impaired glucose tolerance, A1c of 6.2%. Physical Exam - Cardiovascular: Stress test showed no EKG changes meeting criteria for extremity. - Respiratory: Lungs clear on chest x-ray. - Musculoskeletal: No acute airspace disease noted on chest x-ray. Results - Labs: Mild anemia noted since May, normal electrolytes, creatinine 1.22 mg/dL, GFR 58, hemoglobin A1c 6.2%. - Imaging: Chest x-ray showing atherosclerosis and hiatal hernia, no acute airspace disease. - Tests: Stress test on January 30 showed no EKG changes. Plan Patient was informed and verbally consented to the use of an ambient scribe for clinic note documentation during this visit. 1. Essential Hypertension The patient is currently on amlodipine 5 mg and lisinopril 2.5 mg daily for blood pressure management. Blood pressure was noted to be normal during this visit, indicating effective management. 2. Hypercholesterolemia The patient is on atorvastatin 40 mg every other day, with a goal to reduce LDL cholesterol to less than 70 mg/dL. It was recommended to take atorvastatin daily to better manage cholesterol levels and reduce cardiovascular risk. 3. Chronic Obstructive Pulmonary Disease The patient uses an albuterol inhaler and Symbicort for COPD management. Due to persistent dyspnea, the addition of another inhaler was discussed to improve respiratory function. 4. Impaired Glucose Tolerance The patient has a hemoglobin A1c of 6.2% and is advised to manage glucose levels through diet and exercise. Follow-up A1c testing is planned in three months to monitor glucose control. 5. Atherosclerosis Atherosclerosis was noted on chest x-ray, and the patient is advised to continue cholesterol management and weight loss to prevent progression. The importance of daily atorvastatin intake was emphasized to reduce cardiovascular risk. Discussion Notes During the visit, we discussed the importance of managing cholesterol levels aggressively to prevent cardiovascular disease, given the presence of atherosclerosis. The patient was advised to take atorvastatin daily instead of every other day to achieve better control of LDL cholesterol levels. We also reviewed the management of COPD, considering the addition of another inhaler to improve respiratory function. The patient was informed about the need for regular follow-up to monitor glucose levels and the potential introduction of aspirin therapy post-eye surgery. Patient Instructions - Take atorvastatin daily to manage cholesterol levels. - Continue using albuterol inhaler and Symbicort for COPD management. - Follow a low-fat diet and exercise regularly to manage glucose levels and support weight loss. - Attend follow-up appointments to monitor blood pressure, cholesterol, and glucose levels. - Consider adding another inhaler if breathing difficulties persist. - Plan for a follow-up A1c test in three months. Orders: Orders Influenza [id number] Immunization Today Z23 - Encounter for immunization Comprehensive Met. Panel 3 Months I70.90 - Unspecified atherosclerosis Liver Panel 3 Months I70.90 - Unspecified atherosclerosis, R79.89 - Other specified abnormal findings of blood chemistry Hemoglobin A1c 3 Months I70.90 - Unspecified atherosclerosis Medications: New umeclidinium 62.5 mcg/actuation (Incruse Ellipta) 1 inh inhalation BEDTIME 30 ea 3RF J44.9 - Chronic obstructive pulmonary disease, unspecified umeclidinium 62.5 mcg/actuation (Incruse Ellipta) 1 inh inhalation BEDTIME 30 ea 3RF J44.9 - Chronic obstructive pulmonary disease, unspecified
--- OUTSIDE RECORDS SUMMARY | 2025-01-30 12:50 | XMS_ITS | Clinical Summary ---
Author Organization [address] Address [address] [place] [phone] Phone Care Team Providers Care Presales Engineer Name Role Phone Edna Laird MD [...] Diagnosed Date Stage 3 chronic kidney disease ([facility] V24, [facility] V28) 08/17/2024 Hiatal hernia 01/03/2021 Sigmoid diverticulosis 01/03/2021 Overview (04/20/2024): Colonoscopy 08/2020 Internal hemorrhoids 01/03/2021 Overview (04/20/2024): Colonoscopy 08/2020 PVD (peripheral vascular disease) ([facility] V24) 11/14/2020 Prediabetes 08/30/2020 Obesity (BMI 30.0-34.9) [...] colonoscopy PVD (peripheral vascular dis ease) ([facility] V24) 11/14/2020 DX:PVD (peripheral vascular disease) ([facility]) Family History Medical History Relation Name Comments Alcohol abuse Brother Tuberculosis Father Heart attack Mother from [place] ag e 74, stroke Relation Name Status [...] 3:30 PM EDT Office Visit Nephrology - [place] [address] [place] [address] Keyshawn Clinton MD [address] [id number] Health Maintenance Due Date Last Done Comments [...] exists RSV Immunization Adult Patients Completed 01/26/2023 Abdominal Aortic Aneurysm (AAA) Screen Discontinued 08/24/2024 HIB Vaccines Aged Out No longer eligi [...] type Renal cyst LIPID PANEL Routine 06/28/2020 HM HEPATITIS C SCREENING Routine 07/11/2013 from Last [...] Signed Date: 08/24/2024 16:36 ET Workstation ID: [id number] Transcribed By: Self Edit Transcribed Date: 08/24/2024 [...] Signed Date: 08/24/2024 16:36 ET Workstation ID: [id number] Transcribed By: Self Edit Transcribed Date: 08/24/2024 16:34 ET us Keyshawn Clinton MD [facility] US PROCEDURES Final Result * Renal function panel (08/07/2024 1:41 PM EDT) Sodium 143 133 - 145 mmol/L LAB [facility] Potassium 4.5 3.5 - 5.5 mmol/L LAB CHEMISTRY METHOD 08/07/2024 5:47 PM T [facility] Chloride 109 96 - 110 mmol/L LAB CHEMISTRY METHOD 08/07/2024 5:47 PM [facility] CO2 30 21 - 32 mmol/L LAB CHEMISTRY METHOD 08/07/2024 5:47 PM [facility] Anion Gap 4 3 - 11 LAB CHEMISTRY METHOD 08/07/2024 5:47 PM [facility] Glucose 89 70 - 100 mg/dL LAB CHEMISTRY METHOD 08/07/2024 5:47 PM EDT [facility] BUN 18 5 - 25 mg/dL LAB CHEMISTRY METHOD 08/07/2024 5:47 PM T [facility] Creatinine 1.25 0.70 - 1.30 mg/dL LAB CHEMISTRY METHOD 08/07/2024 5:47 PM [facility] eGFR 60 >=60 mL/min/1. 73m2 LAB CHEMISTRY METHOD 08/07/2024 5:47 PM T [facility] Comment:Calculation based on the Chronic Kidney Disease Epidemiology Collaboration (CKD-EPI) equation refit without adjustment for race. BUN/Creatinine Ratio 14.4 LAB CHEMISTRY METHOD 08/07/2024 5:47 PM [facility] Albumin 3.9 3.2 - 5.0 g/dL LAB CHEMISTRY METHOD 08/07/2024 5:47 PM EDT [facility] Calcium 9.8 8.5 - 10.5 mg/dL LAB CHEMISTRY METHOD 08/07/2024 5:47 PM [facility] Phosphorus 3.8 2.5 - 4.5 mg/dL LAB CHEMISTRY METHOD 08/07/2024 5:47 PM [facility] Blood Venous blood specimen / Unknown Venipuncture / Unknown 08/07/2024 1:41 PM EDT 08/07/2024 1:41 PM EDT us Keyshawn Clinton MD LAB BLOOD ORDERABLES Final Res ult [facility] [address] [place] [address], * Lipid panel (06/28/2020) LDL/HDL Ratio 3 0 - 4 Triglycerides 76 0 - 150 mg/dL Cholesterol 144 0 - 200 mg/dL HDL 49 >=40 mg/dL LDL Cholesterol 80 0 - 100 mg/dL Blood Venous blood specimen / Unknown us Historical Provider LAB BLOOD ORDERABLES Odalys l Result * Hepatitis C Screening (07/11/2013) Hepatitis C Screening abstracted Historical Provider HEALTH MAINTENANCE Final Result from Last 3 Months or Most Recently Relevant to Health Maintenance Insurance MEDICARE [facility] Care Teams Presales Engineer Relationship Specialty Start Date End Date Edna Laird MD [address] [place] [address] PCP - General Internal Medicine 01/03/21
--- OUTSIDE RECORDS SUMMARY | 2025-01-30 12:50 | XMS_ITS | Patient Health Record ---
Author Organization [facility] Address [address] [place] [address] Care Team Providers Care Volunteer Coordinator Name Role Phone Joanne Bejarano MD Primary Care Provider Abdoulaye Cast [phone] Allergies Allergen (clinical drug ingredient) Drug/Non Drug [...] Problem Gastro-esophage al reflux disease without esophagitis (018833606) Gastro-esophageal reflux disease without esophagitis (K21.9) Active confirmed Problem [id number] Encounter for screening for malignant neoplasm of colon (Z12.11) Active confirmed Problem 850602270 Change in bowel habits (R19.4) Active confirmed Problem 957472434 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 Problem 71513060 Heartburn (R12) Active confirmed Problem 706012173 Gastroesophageal reflux disease without esophagitis (K21.9) Active confirmed Problem 83989567 Hiatal hernia (K44.9) Active confirmed Problem Chronic gastritis (2020754) Gastritis, chronic (K29.50) Active confirmed Problem 867492141 Long-term use of aspirin therapy (Z79.82) Active confirmed Problem 66486636 Diarrhea, unspecified type (R19.7) Active confirmed Problem 040001448 Gastroesophageal reflux disease, unspecified whether esophagitis present [...] [place] [address] [place] [address] [id number] ELIO MONTOYA Self - patient is the insured [employer] [address] [place] [address] [id number] ELIO MONTOYA Self - patient is the insured Medical (General) History Medical History History ICD Code Prostate cancer 2016 with radiation jaun tments Denies MT,DM,CVA,Lung disease,renal dise ase HTN Depression Hyperlipidemia Negative [...]
== END 2025-01-30 11:47 | disposition home or self-care (01) ==
LOC: HO.HMCH 10:35
PROVIDERS: PCP Internal Medicine; Visit Provider Internal Medicine
DX: I70.90 Unspecified atherosclerosis (principal); J44.9 Chronic obstructive pulmonary disease, unspecified; E66.9 Obesity, unspecified; Z68.32 Body mass index [BMI] 32.0-32.9, adult; I10 Essential (primary) hypertension; E78.00 Pure hypercholesterolemia, unspecified; R73.02 Impaired glucose tolerance (oral); K22.70 Barrett's esophagus without dysplasia; K76.0 Fatty (change of) liver, not elsewhere classified; H61.23 Impacted cerumen, bilateral; Z23 Encounter for immunization